=== PATIENT | female | born 1985 ===

== ENCOUNTER 2019-12-13 00:32 | Inpatient (IN) | payer OTHER, SELFPAY ==
[2019-12-13] VITALS (12 sets, daily range): BP systolic 96–137; BP diastolic 53–70; PULSE 79–119; RESP 15–20; TEMP 36.7–39.4; O2SAT 94–99; BMI 22.4
--- NOTE | 2019-12-13 01:31 | ED_ITS ---
HPI - Abdominal Pain General Chief Complaint: Abdominal Pain Stated Complaint: ABD PAIN Time Seen by Provider: 12/13/19 01:31 Source: patient Mode of arrival: ambulatory Limitations: no limitations History of Present Illness HPI narrative: This is a 34-year-old female with onset of abdominal /flank pain on the left since yesterday with associated nausea, vomiting, fever, chills but denies any urinary pain/ burning / frequency. Patient states her LMP was 3 weeks ago and that she has had a tubal ligation. Related Data Home Medications Medication Instructions Recorded Confirmed clonazepam 1 tab PO DAILY PRN 12/13/19 12/13/19 zolpidem 1 tab PO BEDTIME PRN 12/13/19 12/13/19 Allergies Allergy/AdvReac Type Severity Reaction Status Date / Time amitriptyline [AMITRIPTYLINE] Allergy Intermediate NAUSEA, Verified 12/13/19 02:56 DIZZINESS somatropin [SOMATROPIN] Allergy Unknown UNKNOWN Verified 12/13/19 02:56 albuterol [ALBUTEROL] AdvReac Mild TACHYCARDIA Verified 12/13/19 02:56 esomeprazole [From NEXIUM] AdvReac Mild TACHYCARDIA Verified 12/13/19 02:56 magnesium AdvReac Unknown TACHYCARDIA Verified 12/13/19 02:56 (MAGNESIUM SULFATE) Review of Systems Review of Systems Pertinent positives and negatives as stated in HPI 10 point review of systems is otherwise negative. Physical Exam Vital Signs: Vital Signs: Vital Signs Temp Pulse Resp BP Pulse Ox 12/13/19 04:22 98.7 F 101 H 20 103/60 97 12/13/19 02:50 101.4 F H 94 20 103/56 L 99 12/13/19 00:37 100.3 F 108 H 18 137/70 99 Body Mass Index 22.4 VITAL SIGNS: Reviewed. GENERAL: Well developed, well nourished, in no acute distress. HEAD: Normocephalic/atraumatic, EYES: PERRLA, EOMI intact without pain, no nystagmus/pallor/icterus noted EARS: Ext canals without abnormality, TMs non-bulging and non-erythematous NOSE: Nares patent bilateral OROPHARYNX: no oral lesions noted, posterior pharynx clear and non-erythematous without noted tonsillar enlargement/erythema/exudates NECK: Supple, no adenopathy LUNGS: Normal breath sounds. No adventitious sounds or accessory muscle use. SpO2<99> CARDIOVASCULAR: Regular rate and rhythm without noted murmurs, no JVD or lower extremity edema. ABDOMEN: Soft, Tenderness over the left side of the abdomen with localized rebound, non-distended with bowel sounds. No rigidity. No guarding. No palpable masses or hernias noted MUSCULOSKELETAL: No tenderness, deformities, or effusions noted on gross inspection. EXTREMITIES: No cyanosis, clubbing or edema. SKIN: Inspection of the skin reveals no rashes, ulcerations, jaundice, pallor, or petechiae. NEUROLOGIC: Alert and oriented x 4. Strength and sensation to light touch were grossly intact x 4. Course Course Course Narrative: This is a 34-year-old female with history and clinical presentation consistent with possible pyelonephritis, diverticulitis, pancreatitis, but doubt UTI/ectopic . labs, blood cultures, lactic acid, sepsis fluids, CT scan abdomen /pelvis , Zofran, pain medication On review of all investigations there is leukocytosis with left shift with no acute chemistry abnormalities and a lactic acid within normal limits, but urine grossly positive for nitrites and leukocyte esterase. Taken in conjunction with CT scan results which shows evidence of pyelonephritis. On re-evaluation patient remains nauseous and in significant pain. Antibiotics were provided and the case was discussed with the inpatient hospitalist who agrees for admission. Of note, although there is evidence of pyelonephritis there is no clear etiology for the extent of dilation within the left renal system and may consider possible Urology consult. Unable to perform COVID-19 testing due to laboratory department limitations. MDM - Abdominal Pain Lab Data Result diagrams: 12/13/19 01:46 12/13/19 01:46 Labs: Lab Results 12/13/19 12/13/19 12/13/19 Range/Units 01:46 01:46 02:47 WBC 16.0 H (4.8-10.8) X10*3/uL RBC 4.92 (4.20-5.50) X10*6/uL Hgb 14.4 (12.0-16.0) g/dl Hct 43.5 (37-47) % MCV 88.4 (80-98) fL MCH 29.3 (27.0-33.0) pg MCHC 33.1 (31.0-35.0) g/dl RDW 12.7 (11.0-16.0) % Plt Count 308 (160-400) X10*3/uL MPV 10.3 (9.4-12.3) fL Immature Gran % (Auto) 0.3 (0.0-0.4) % Neut % (Auto) 76.3 H (45-73) % Lymph % (Auto) 10.3 L (20-40) % [place] % (Auto) 11.8 H (2-11) % Eos % (Auto) 0.9 (0-4) % Baso % (Auto) 0.4 (0-2) % Lymph # (Auto) 1.6 (1.2-4.9) X10*3/uL [place] # (Auto) 1.9 H (0.1-1.2) X10*3/uL Eos # (Auto) 0.1 (0.0-0.4) X10*3/uL Baso # (Auto) 0.1 (0.0-0.2) X10*3/uL Abs Immat Gran (auto) 0.05 H (0.00-0.03) X10*3/uL Absolute Neuts (auto) 12.2 H (2.0-8.3) X10*3/uL Absolute Nucleated RBC 0.000 (0.0-0.012) X10*3/uL Nucleated RBC % (auto) 0.0 (0.0-0.2) /100WBC Sodium 137 (135-145) mmol/L Potassium 4.0 (3.3-5.1) mmol/l Chloride 99 (96-108) mmol/L Carbon Dioxide 28 (22-29) mmol/L Anion Gap 14 (12-20) BUN 7 L (9-16) mg/dL Creatinine 0.75 (0.5-1.4) mg/dL Estim Creat Clear Calc 77.4 Estimated GFR > 60 Random Glucose 102 (60-115) mg/dL Lactic Acid 0.8 (0.5-2.0) mmol/L Calcium 9.3 (8.4-10.2) mg/dL Total Bilirubin 0.7 (0.0-1.0) mg/dL AST 19 (5-31) U/L ALT 16 (0-31) U/L Alkaline Phosphatase 69 (39-117) U/L Total Protein 7.6 (6.5-8.0) g/dL Albumin 4.5 (3.5-5.0) g/dL Lipase 8 (8-78) U/L Beta HCG, Quant < 2 mIU/mL Urine Color Urine Appearance Urine pH (5.0-8.0) Ur Specific [place] (1.005-1.025) Urine Protein (NEG-TRACE) MG/DL Urine Glucose (UA) (NEG) MG/DL Urine Ketones (NEG) MG/DL Urine Blood (NEG) Urine Nitrite (NEG) Ur Leukocyte Esterase (NEG) Urine RBC (0) /HPF Urine WBC (0-4) /HPF Urine WBC Clumps Ur Squamous Epith Cells /LPF Urine Bacteria /LPF Urine Test (NEGATIVE) 12/13/19 Range/Units 04:26 WBC (4.8-10.8) X10*3/uL RBC (4.20-5.50) X10*6/uL Hgb (12.0-16.0) g/dl Hct (37-47) % MCV (80-98) fL MCH (27.0-33.0) pg MCHC (31.0-35.0) g/dl RDW (11.0-16.0) % Plt Count (160-400) X10*3/uL MPV (9.4-12.3) fL Immature Gran % (Auto) (0.0-0.4) % Neut % (Auto) (45-73) % Lymph % (Auto) (20-40) % [place] % (Auto) (2-11) % Eos % (Auto) (0-4) % Baso % (Auto) (0-2) % Lymph # (Auto) (1.2-4.9) X10*3/uL [place] # (Auto) (0.1-1.2) X10*3/uL Eos # (Auto) (0.0-0.4) X10*3/uL Baso # (Auto) (0.0-0.2) X10*3/uL Abs Immat Gran (auto) (0.00-0.03) X10*3/uL Absolute Neuts (auto) (2.0-8.3) X10*3/uL Absolute Nucleated RBC (0.0-0.012) X10*3/uL Nucleated RBC % (auto) (0.0-0.2) /100WBC Sodium (135-145) mmol/L Potassium (3.3-5.1) mmol/l Chloride (96-108) mmol/L Carbon Dioxide (22-29) mmol/L Anion Gap (12-20) BUN (9-16) mg/dL Creatinine (0.5-1.4) mg/dL Estim Creat Clear Calc Estimated GFR Random Glucose (60-115) mg/dL Lactic Acid (0.5-2.0) mmol/L Calcium (8.4-10.2) mg/dL Total Bilirubin (0.0-1.0) mg/dL AST (5-31) U/L ALT (0-31) U/L Alkaline Phosphatase (39-117) U/L Total Protein (6.5-8.0) g/dL Albumin (3.5-5.0) g/dL Lipase (8-78) U/L Beta HCG, Quant mIU/mL Urine Color STRAW Urine Appearance HAZY Urine pH 7.0 (5.0-8.0) Ur Specific [place] <= 1.005 (1.005-1.025) Urine Protein NEG (NEG-TRACE) MG/DL Urine Glucose (UA) NEG (NEG) MG/DL Urine Ketones 15 (NEG) MG/DL Urine Blood 1+ H (NEG) Urine Nitrite POS H (NEG) Ur Leukocyte Esterase 1+ H (NEG) Urine RBC 1-4 (0) /HPF Urine WBC 30-49 H (0-4) /HPF Urine WBC Clumps NOTED Ur Squamous Epith Cells TRACE /LPF Urine Bacteria 1+ /LPF Urine Test NEGATIVE (NEGATIVE) Discharge Plan Discharge Clinical Impression: Pyelonephritis Sepsis Qualifiers: Sepsis type: sepsis due to unspecified organism Sepsis acute organ dysfunction status: without acute organ dysfunction Qualified Code(s): A41.9 - Sepsis, unspecified organism Patient Disposition: Admitted As Inpatient [facility] Past Medical History Source: nursing notes reviewed Medical History No known health problems Social History Social History Alcohol intake: never Smoking Status: Never smoker Advance Directives: No
--- NOTE | 2019-12-13 01:34 | PC.NURSE ---
PT REPORTS LEFT SIDED ABD PAIN RADIATING INTO BACK BEGINNING TODAY, LOW GRADE TEMP, N/V. DENIES URINARY SYMPTOMS. TESTED NEGATIVE FOR COVID YESTERDAY. IV ACCESS OBTAINED, BLOOD WORK SENT TO LAB. IVF HUNG AND INFUSING WTHOUT DIFFICULTY. AWAITING TESTING.
[2019-12-13] MEDS: 0.9 % Sodium Chloride 1,000 ML 1000 ML IV ×2 (01:45→02:55)
[2019-12-13 01:52] LABS: Basophils Absolute Auto 0.1 X10*3/uL (0.0-0.2); Basophils Percent Auto 0.4 % (0-2); Eosinophils Absolute Auto 0.1 X10*3/uL (0.0-0.4); Eosinophils Percent Auto 0.9 % (0-4); Hematocrit 43.5 % (37-47); Hemoglobin 14.4 g/dl (12.0-16.0); Imm Gran Abs Auto 0.05 X10*3/uL (0.00-0.03); Imm Gran Pct Auto 0.3 % (0.0-0.4); Lymphocytes Absolute Auto 1.6 X10*3/uL (1.2-4.9); Lymphocytes Percent Auto 10.3 % (20-40); Mean Corpuscular HGB Conc 33.1 g/dl (31.0-35.0); Mean Corpuscular Hemoglobin 29.3 pg (27.0-33.0); Mean Corpuscular Volume 88.4 fL (80-98); Mean Platelet Volume 10.3 fL (9.4-12.3); Monocytes Absolute Auto 1.9 X10*3/uL (0.1-1.2); Monocytes Percent Auto 11.8 % (2-11); Neutrophils Absolute Auto 12.2 X10*3/uL (2.0-8.3); Neutrophils Percent Auto 76.3 % (45-73); Platelet Count 308 X10*3/uL (160-400); Red Blood Count 4.92 X10*6/uL (4.20-5.50); Red Cell Distribution Width 12.7 % (11.0-16.0); SCAN SMEAR FLAG 1
[2019-12-13 01:53] LABS: MANUAL DIFF FLAG NO
[2019-12-13 02:18] LABS: Alanine Aminotransferase 16 U/L (0-31); Albumin Level 4.5 g/dL (3.5-5.0); Alkaline Phosphatase 69 U/L (39-117); Anion Gap 14 (12-20); Aspartate Amino Transferase 19 U/L (5-31); Bilirubin Total 0.7 mg/dL (0.0-1.0); Blood Urea Nitrogen 7 mg/dL (9-16); Calcium 9.3 mg/dL (8.4-10.2); Carbon Dioxide 28 mmol/L (22-29); Chloride 99 mmol/L (96-108); Creatinine Clr Calc Pharmacy 77.4; Estimated Glomerular Filt Rate > 60; Glucose Random 102 mg/dL (60-115); Lipase 8 U/L (8-78); Sodium 137 mmol/L (135-145); Total Protein 7.6 g/dL (6.5-8.0)
--- NOTE | 2019-12-13 02:30 | CT_ITS ---
EXAMINATION: CT ABDOMEN AND PELVIS WITH CONTRAST CLINICAL INFORMATION: Abdominal pain COMPARISON: 11/01/2019 TECHNIQUE: Multidetector volumetric images were obtained from the superior aspect of the liver through the pubic symphysis following administration 85 mL of Omnipaque 350 intravenous contrast. Sagittal and coronal reformatted images were obtained on the technologist's workstation. Oral contrast: No This CT examination was performed using dose optimization techniques as appropriate, variously including the following: *Automated exposure control *Adjustment of mA and/or kV according to patient size (this includes techniques or standardized protocols for targeted exams where dose is matched to indication/reason for exam; i.e. extremities or head) *Use of iterative reconstruction technique DLP: 370 mGy-cm FINDINGS: LUNG BASES: The visualized lung bases are unremarkable. LIVER, GALLBLADDER, AND BILIARY TREE: The liver is normal in size, shape, and attenuation. No focal hepatic lesion or biliary ductal dilatation is present. The gallbladder is unremarkable with no evidence of radiopaque gallstones, gallbladder wall thickening, or obvious pericholecystic inflammatory changes. PANCREAS: Unremarkable. SPLEEN: Unremarkable. ADRENAL GLANDS: Unremarkable. KIDNEYS AND URETERS: There are regions of parenchymal hypoattenuation in the mid and lower left kidney with associated mild perinephric stranding. There is also mild dilation of the left renal pelvis and enhancement along the periphery of most of the ureter. No obstructing calculus is seen. Right kidney appears unremarkable. BLADDER: Unremarkable. GASTROINTESTINAL TRACT: The small and large bowel are unremarkable. The appendix is unremarkable. No free air identified. ABDOMINAL WALL: No significant hernia is appreciated. LYMPH NODES: Normal. VASCULAR: Unremarkable. PELVIC VISCERA: Unremarkable. OSSEOUS STRUCTURES: Unremarkable. CT/CT abdomen pelvis w con IMPRESSION: Regions of abnormal left renal parenchymal enhancement as described above, most suspicious for pyelonephritis. There is also mural enhancement of the left ureter and mild dilation of the renal pelvis, without appreciable obstructing calculus.
[2019-12-13 02:54] LABS: HCG Quantitative < 2 mIU/mL
[2019-12-13] MEDS: Ketorolac Tromethamine 15 MG/ML VIAL IVPUSH (02:54)
[2019-12-13] MEDS: ondansetron HCL 4 MG/2 ML VIAL IVPUSH ×2 (02:54→15:26)
[2019-12-13 03:18] LABS: Lactic Acid 0.8 mmol/L (0.5-2.0)
[2019-12-13] MEDS: iohexoL 350 MG/ML 100 ML INFUS..BTL 85 ML IV (03:20)
[2019-12-13] MEDS: cefTRIAXone sodium 2 GM in 0.9 % Sodium Chloride 50 ML IV (04:15)
[2019-12-13] MEDS: Acetaminophen 325 MG TABLET 975 MG PO (04:18)
[2019-12-13 04:32] LABS: Glucose Urine UA NEG (NEG); Leukocyte Esterase Urine 1+ (NEG); Nitrite Urine POS (NEG); Specific Gravity - Urine <= 1.005 (1.005-1.025); Urine Blood 1+ (NEG); Urine Ketones 15 MG/DL (NEG); Urine Protein NEG (NEG-TRACE)
[2019-12-13 04:37] LABS: Appearance Urine HAZY; Color Urine STRAW
[2019-12-13 04:48] LABS: Bacteria Urine 1+ /LPF; Squamous Epithelial Cell Urine TRACE /LPF; WBC Clumps Urine NOTED; WBC Urine 30-49 /HPF (0-4)
--- NOTE | 2019-12-13 04:56 | PC.NURSE ---
PT RESTING IN BED SKIN PWD RESPIRATIONS EVEN UNLABORED, REPORTS CONTINUED PAIN. TO BE ADMITTED. AWARE OF PLAN OF CARE, AWAITING HOSPITALIST CONSULT.
[2019-12-13] MEDS: HYDROmorphone HCl 0.5 MG/0.5 ML SYRINGE IVPUSH (05:03)
[2019-12-13 05:13] LABS: UPreg QC Valid YES; Urine Pregnancy NEGATIVE (NEGATIVE)
--- NOTE | 2019-12-13 10:04 | P.HPIM_ITS ---
History of Present Illness Date of Service: 12/13/19 Chief Complaint: Abdominal pain and Left flank pain 34 year old female with history of unspecified history of kidney stone, diabetes, and other medical problems as listed below presents to ED with abdominal, nausea vomting and fever since the day prior to admission. She describes mostly severe, left flank pain and has no associated dysuia. Work up is noted for elevated WBC of 16, positive UA, normal lactic acid.and blood pressure has been marginally low. A CT if the abdomen shows finding consistent with left sided pyelonephritis. She meets sepsis criteria with elevated WBC and fever. She is initiated on Ceftriaxone given IV fluid and blood cultures sent. Review of Systems Review of Systems: Gen: Fever and chills GI: Nausea, vomiting no diarrhea. Yes all other systems are reviewed and are negative [facility] Medical History (Updated 12/13/19 @ 10:23 by Edwin Avelar MD) Bipolar 1 disorder Carpal tunnel syndrome COPD (chronic obstructive pulmonary disease) Diabetes mellitus Fibromyalgia History of MRSA infection No known health problems Polycystic ovarian disease Postural orthostatic tachycardia syndrome Functional capacity: independent ambulation Pertinent family history: Family history of type 2 diabetes and HTN Surgical History (Updated 12/13/19 @ 10:10 by Edwin Avelar MD) History of tubal ligation Hx of abdominoplasty Social History Alcohol intake: never Smoking Status: Never smoker Advance Directives: No Meds Allergies Allergy/AdvReac Type Severity Reaction Status Date / Time somatropin [SOMATROPIN] Allergy Unknown UNKNOWN Verified 12/13/19 02:56 amitriptyline [AMITRIPTYLINE] AdvReac Intermediate NAUSEA, Verified 12/13/19 08:37 DIZZINESS albuterol [ALBUTEROL] AdvReac Mild TACHYCARDIA Verified 12/13/19 02:56 esomeprazole [From NEXIUM] AdvReac Mild TACHYCARDIA Verified 12/13/19 02:56 magnesium AdvReac Unknown TACHYCARDIA Verified 12/13/19 02:56 (MAGNESIUM SULFATE) Home Medications Medication Instructions Recorded Confirmed Type clonazepam 1 mg PO DAILY PRN 12/13/19 12/13/19 History divalproex 250 mg PO BID 12/13/19 12/13/19 History fluticasone propionate [Flovent 1 puff INHALATION BID 12/13/19 12/13/19 History HFA] valacyclovir 1,000 mg PO DAILY 12/13/19 12/13/19 History zolpidem 10 mg PO BEDTIME PRN 12/13/19 12/13/19 History Physical Exam Vital Signs and Narrative: Vital Signs: Last Vital Signs Temp 98.1 F 12/13/19 07:52 Pulse 79 12/13/19 07:52 Resp 16 12/13/19 07:52 BP 96/53 L 12/13/19 07:52 Pulse Ox 97 12/13/19 04:22 Body Mass Index 22.4 Results Labs Labs: Laboratory Tests 12/13/19 12/13/19 12/13/19 01:46 01:46 02:47 WBC 16.0 H RBC 4.92 Hgb 14.4 Hct 43.5 MCV 88.4 MCH 29.3 MCHC 33.1 RDW 12.7 Plt Count 308 MPV 10.3 Immature Gran % (Auto) 0.3 Neut % (Auto) 76.3 H Lymph % (Auto) 10.3 L [place] % (Auto) 11.8 H Eos % (Auto) 0.9 Baso % (Auto) 0.4 Lymph # (Auto) 1.6 [place] # (Auto) 1.9 H Eos # (Auto) 0.1 Baso # (Auto) 0.1 Abs Immat Gran (auto) 0.05 H Absolute Neuts (auto) 12.2 H Absolute Nucleated RBC 0.000 Nucleated RBC % (auto) 0.0 Sodium 137 Potassium 4.0 Chloride 99 Carbon Dioxide 28 Anion Gap 14 BUN 7 L Creatinine 0.75 Estim Creat Clear Calc 77.4 Estimated GFR > 60 Random Glucose 102 Lactic Acid 0.8 Calcium 9.3 Total Bilirubin 0.7 AST 19 ALT 16 Alkaline Phosphatase 69 Total Protein 7.6 Albumin 4.5 Lipase 8 Beta HCG, Quant < 2 Urine Color Urine Appearance Urine pH Ur Specific [place] Urine Protein Urine Glucose (UA) Urine Ketones Urine Blood Urine Nitrite Ur Leukocyte Esterase Urine RBC Urine WBC Urine WBC Clumps Ur Squamous Epith Cells Urine Bacteria Urine Test 12/13/19 04:26 WBC RBC Hgb Hct MCV MCH MCHC RDW Plt Count MPV Immature Gran % (Auto) Neut % (Auto) Lymph % (Auto) [place] % (Auto) Eos % (Auto) Baso % (Auto) Lymph # (Auto) [place] # (Auto) Eos # (Auto) Baso # (Auto) Abs Immat Gran (auto) Absolute Neuts (auto) Absolute Nucleated RBC Nucleated RBC % (auto) Sodium Potassium Chloride Carbon Dioxide Anion Gap BUN Creatinine Estim Creat Clear Calc Estimated GFR Random Glucose Lactic Acid Calcium Total Bilirubin AST ALT Alkaline Phosphatase Total Protein Albumin Lipase Beta HCG, Quant Urine Color STRAW Urine Appearance HAZY Urine pH 7.0 Ur Specific [place] <= 1.005 Urine Protein NEG Urine Glucose (UA) NEG Urine Ketones 15 Urine Blood 1+ H Urine Nitrite POS H Ur Leukocyte Esterase 1+ H Urine RBC 1-4 Urine WBC 30-49 H Urine WBC Clumps NOTED Ur Squamous Epith Cells TRACE Urine Bacteria 1+ Urine Test NEGATIVE Assessment and Plan (1) Sepsis: Qualifiers: Sepsis acute organ dysfunction status: without acute organ dysfunction Sepsis type: sepsis due to unspecified organism Qualified Code(s): A41.9 - Sepsis, unspecified organism Status: Acute (2) Pyelonephritis: Status: Acute (3) Diabetes mellitus: Status: Acute 34/F with sepsis due to acute left sided pyelonephritis -Continue Ceftiaxone D1 -IVF and monitor for hypoten -Follow cultures 2. Diabetes--she used to take Metformin but says she doesn't have PCP and hasn't been taken meds. -check Hgb A1C, sugars are pretty much normal 3. COPD --stable, no exacerbation, inhalers PRN 4. Anxiety/Depression --ativan PRN Low risk for DVT, advise early ambulation
--- NOTE | 2019-12-13 10:13 | PC.NURSE ---
[facility] called for report x 1. phone rang no answer when sent to the pod.
--- NOTE | 2019-12-13 10:53 | PC.NURSE ---
nurse to nurse given to beny (rn) on imc, pt aware of plan of care for admission to hosp.
[2019-12-13] MEDS: Morphine Sulfate 2 MG/ML CARTRIDGE IVPUSH ×3 (11:33→23:43)
[2019-12-13] MEDS: 0.9 % Sodium Chloride 1,000 ML 200 ML IVCONT ×2 (11:51→18:24)
[2019-12-13] MEDS: Acetaminophen 325 MG TABLET 650 MG PO ×2 (15:26→23:43)
[2019-12-13 16:37] LABS: SARS COV2 PCR INHOUSE NEGATIVE (Negative)
--- NOTE | 2019-12-13 17:13 | MHC.PIE ---
P- Pt temp 103.0 orally, HR 119 at 1600 vitals I- jesus FREY, gave PRN tylenol per emar E- will continue to monitor
[2019-12-13] MEDS: Zolpidem Tartrate 5 MG TABLET PO (23:44)
[2019-12-14 03:31] VITALS: BP 108/60; PULSE 84; RESP 18; TEMP 37; O2SAT 96
[2019-12-14 08:00] VITALS: BP 100/35; PULSE 93; RESP 18; TEMP 36.7; O2SAT 96
[2019-12-14] MEDS: 0.9 % Sodium Chloride Flush 3 ML SYRINGE IVFLUSH ×3 (09:06→22:43)
[2019-12-14 12:00] VITALS: BP 120/48; PULSE 88; RESP 18; TEMP 36.7; O2SAT 96
[2019-12-14] MEDS: Morphine Sulfate 2 MG/ML CARTRIDGE IVPUSH ×2 (13:01→17:20)
[2019-12-14] MEDS: ondansetron HCL 4 MG/2 ML VIAL IVPUSH ×2 (13:01→22:48)
--- NOTE | 2019-12-14 13:43 | MHC.CM.PN ---
Pt reports she lives at home with her children and she is independent with care and mobility. Pt has no in home services and no DME. Pt does not know the name of her current PCP as it recently changed but reports she goes to the [facility]. Pt reports she has a HCP completed and on file. IMM delivered and current DC plan is home with no services pt will self arrange transport
[2019-12-14 14:05] LABS: Glucose, Whole Blood 104 mg/dL (60-115)
--- NOTE | 2019-12-14 14:23 | P.PNIM_ITS ---
Subjective Subjective Date of Service: 12/14/19 Interval History: seen and examined this afternoon reports fevers improved since early this AM but reports L flank pain still significant reports previously on metformin for DM, but not for > 1.5years Review of Systems General - fevers better Cardiovascular - no chest pain Respiratory - no shortness of breath or cough Abdominal- flank pain Physical Exam Vital Signs: Vital Signs: Vital Signs Temp Pulse Resp BP Pulse Ox 12/14/19 12:00 98.0 F 88 18 120/48 L 96 12/14/19 08:00 98.0 F 93 18 100/35 L 96 12/14/19 03:31 98.6 F 84 18 108/60 96 12/13/19 23:43 18 12/13/19 23:35 100.1 F 110 H 19 121/65 94 12/13/19 19:08 99.3 F 97 18 107/57 L 95 12/13/19 17:37 99.5 F 12/13/19 15:22 103.0 F H 119 H 20 108/63 97 Body Mass Index 22.4 General - no acute distress, appears comfortable Cardiovascular - regular rate and rhythm, S1-S2 Lungs - normal respiratory effort, clear to auscultation bilaterally, no wheezing Abdomen - soft, nt - L flank tenderness Extremities - no edema bilaterally Neuro - awake and alert, no focal deficits Objective Data Current Medications Generic Name Dose Route Start Last Admin Trade Name Freq PRN Reason Stop Dose Admin Acetaminophen 650 mg 12/13/19 15:07 12/13/19 23:43 Acetaminophen 325 Mg Tablet PO 650 mg Q6H PRN Administration Pain, Mild (Pain Scale 1-3) Clonazepam 1 mg 12/13/19 10:58 Clonazepam 1 Mg Tablet PO DAILY PRN Anxiety Divalproex Sodium 250 mg 12/14/19 21:00 Divalproex Sodium Er 250 Mg Tab.Er.24h PO BID MAEVE Fluticasone Propionate 1 puff 12/14/19 20:00 Fluticasone Propionate 250 Mcg Blst.W.Dev INHALE RBID MAEVE Ceftriaxone Sodium 1 gm/ 50 mls @ 100 mls/hr 12/14/19 14:00 Sodium Chloride IV Q24H MAEVE Lactated Ringer's 1,000 mls @ 100 mls/hr 12/14/19 14:30 Lr IVCONT .Q10H MAEVE Morphine Sulfate 2 mg 12/13/19 08:23 12/14/19 13:01 Morphine Sulfate 2 Mg/Ml Cartridge IVPUSH 2 mg Q4H PRN Administration Pain, Severe (Pain Scale 7-10) Ondansetron HCl 4 mg 12/13/19 15:07 12/14/19 13:01 Ondansetron Hcl 4 Mg/2 Ml Vial IVPUSH 4 mg Q8H PRN Administration Nausea and Vomiting Oxycodone HCl 5 mg 12/14/19 14:23 Oxycodone Hcl Immed Release 5 Mg Tablet PO Q6H PRN Pain, Moderate (Pain Scale 4-6 Sodium Chloride 3 ml 12/13/19 16:00 12/14/19 09:06 0.9 % Sodium Chloride Flush 3 Ml Syringe IVFLUSH 3 ml QSHIFT [facility] Administration Valacyclovir HCl 1,000 mg 12/14/19 13:30 Valacycyclovir Hcl 1,000 Mg Tablet PO DAILY [facility] Zolpidem Tartrate 5 mg 12/13/19 11:01 12/13/19 23:44 Zolpidem Tartrate 5 Mg Tablet PO 5 mg BEDTIME PRN Administration Insomnia Labs CBC & Chem 7: 12/13/19 01:46 12/13/19 01:46 Microbiology Microbiology Results: Microbiology 12/13/19 Unknown Urine clean catch - Clean Catch Midstream Urine Culture - Preliminary Gram negative murphy 12/13/19 02:47 Blood - Venous Blood Culture - Preliminary No growth after 24 hours. 12/13/19 02:47 Blood - Venous Blood Culture - Preliminary No growth after 24 hours. Assessment and Plan (1) Sepsis: Status: Acute (2) Pyelonephritis: Status: Acute Assessment and Plan: This is a 34 yo F with PMH of DM, COPD, Depression/Anxiety who is admitted for sepsis secondary to pyelonephritis. 1. Sepsis due to pyelonephritis blood cx negative @ 24 hours, urine growing GNB continue rocephin check cbc, change to zosyn if white count continues to climb LR @ 100 cc/hr 2. DM reports previously on metformin POC QIDAC, will add sliding scale if sugars high check a1c with tomorrow AM labs 3. COPD/Asthma nebs / inhalers as needed 4. Anxiety / Depression continue home meds Full Code DVT pptx, moderate risk -- not ambulating; start lovenox
[2019-12-14] MEDS: cefTRIAXone sodium 1 GM in 0.9 % Sodium Chloride 50 ML IV (14:35)
[2019-12-14 14:51] LABS: Basophils Absolute Auto 0.1 X10*3/uL (0.0-0.2); Basophils Percent Auto 0.4 % (0-2); Eosinophils Absolute Auto 0.1 X10*3/uL (0.0-0.4); Eosinophils Percent Auto 0.4 % (0-4); Hematocrit 38.2 % (37-47); Hemoglobin 12.8 g/dl (12.0-16.0); Imm Gran Abs Auto 0.05 X10*3/uL (0.00-0.03); Imm Gran Pct Auto 0.4 % (0.0-0.4); Lymphocytes Absolute Auto 1.3 X10*3/uL (1.2-4.9); Lymphocytes Percent Auto 9.1 % (20-40); MANUAL DIFF FLAG SCAN; Mean Corpuscular HGB Conc 33.5 g/dl (31.0-35.0); Mean Corpuscular Hemoglobin 29.9 pg (27.0-33.0); Mean Corpuscular Volume 89.3 fL (80-98); Mean Platelet Volume 10.5 fL (9.4-12.3); Monocytes Absolute Auto 1.6 X10*3/uL (0.1-1.2); Monocytes Percent Auto 11.4 % (2-11); Neutrophils Absolute Auto 10.8 X10*3/uL (2.0-8.3); Neutrophils Percent Auto 78.3 % (45-73); Platelet Count 271 X10*3/uL (160-400); Red Blood Count 4.28 X10*6/uL (4.20-5.50); Red Cell Distribution Width 12.7 % (11.0-16.0); SCAN SMEAR FLAG 1; White Blood Count 13.8 X10*3/uL (4.8-10.8)
[2019-12-14 15:14] LABS: SLIDE REVIEW VERIFIED
[2019-12-14 15:40] VITALS: BP 106/64; PULSE 97; RESP 20; TEMP 37.2; O2SAT 97
[2019-12-14] MEDS: oxyCODONE HCl Immed Release 5 MG TABLET PO (15:44)
[2019-12-14] MEDS: Lactated Ringers 1,000 ML 100 ML IVCONT (15:51)
[2019-12-14 17:11] LABS: Glucose, Whole Blood 122 mg/dL (60-115)
[2019-12-14] MEDS: Enoxaparin Sodium 40 MG/0.4 ML SYRINGE SUBCUT (17:22)
[2019-12-14 19:37] VITALS: BP 115/71; PULSE 88; RESP 16; TEMP 36.8; O2SAT 98
[2019-12-14] MEDS: Fluticasone Propionate 250 MCG BLST.W.DEV 1 PUFF INHALE (20:09)
[2019-12-14] MEDS: Albuterol Sulfate (0.042%) 1.25 MG/3 ML VIAL.NEB INHALE (20:20)
[2019-12-14 20:52] LABS: Glucose, Whole Blood 97 mg/dL (60-115)
[2019-12-14] MEDS: Zolpidem Tartrate 5 MG TABLET PO (22:41)
[2019-12-14] MEDS: Divalproex Sodium ER 250 MG TAB.ER.24H PO (22:41)
[2019-12-14 23:19] VITALS: BP 102/64; PULSE 91; RESP 18; TEMP 36.6; O2SAT 99
[2019-12-15] VITALS (7 sets, daily range): BP systolic 101–127; BP diastolic 50–78; PULSE 74–82; RESP 18–19; TEMP 35.9–36.7; O2SAT 97–98
[2019-12-15] MEDS: Lactated Ringers 1,000 ML 100 ML IVCONT ×3 (00:58→23:44)
[2019-12-15] MEDS: Morphine Sulfate 2 MG/ML CARTRIDGE IVPUSH (01:10)
[2019-12-15 06:50] LABS: MANUAL DIFF FLAG NO
[2019-12-15 07:13] LABS: Basophils Percent Auto 0.4 % (0-2); Eosinophils Absolute Auto 0.1 X10*3/uL (0.0-0.4); Eosinophils Percent Auto 1.4 % (0-4); Hematocrit 34.2 % (37-47); Hemoglobin 11.3 g/dl (12.0-16.0); Imm Gran Abs Auto 0.03 X10*3/uL (0.00-0.03); Imm Gran Pct Auto 0.3 % (0.0-0.4); Lymphocytes Percent Auto 20.8 % (20-40); Mean Corpuscular Hemoglobin 29.4 pg (27.0-33.0); Mean Corpuscular Volume 88.8 fL (80-98); Mean Platelet Volume 10.5 fL (9.4-12.3); Monocytes Absolute Auto 1.2 X10*3/uL (0.1-1.2); Monocytes Percent Auto 11.9 % (2-11); Neutrophils Absolute Auto 6.3 X10*3/uL (2.0-8.3); Neutrophils Percent Auto 65.2 % (45-73); Platelet Count 259 X10*3/uL (160-400); Red Blood Count 3.85 X10*6/uL (4.20-5.50); Red Cell Distribution Width 12.5 % (11.0-16.0); White Blood Count 9.7 X10*3/uL (4.8-10.8)
[2019-12-15] MEDS: Fluticasone Propionate 250 MCG BLST.W.DEV 1 PUFF INHALE ×2 (07:42→19:23)
[2019-12-15 08:22] LABS: Glucose, Whole Blood 88 mg/dL (60-115)
[2019-12-15 08:26] LABS: Estimated Average Glucose 97 mg/dL
[2019-12-15] MEDS: Divalproex Sodium ER 250 MG TAB.ER.24H PO ×2 (08:43→20:36)
[2019-12-15] MEDS: 0.9 % Sodium Chloride Flush 3 ML SYRINGE IVFLUSH ×2 (08:44→17:47)
[2019-12-15] MEDS: ondansetron HCL 4 MG/2 ML VIAL IVPUSH ×2 (09:00→17:37)
[2019-12-15] MEDS: oxyCODONE HCl Immed Release 5 MG TABLET PO ×2 (09:00→22:05)
[2019-12-15 11:45] LABS: Glucose, Whole Blood 98 mg/dL (60-115)
[2019-12-15] MEDS: cefTRIAXone sodium 1 GM in 0.9 % Sodium Chloride 50 ML IV (13:37)
--- NOTE | 2019-12-15 13:42 | P.PNIM_ITS ---
Subjective Subjective Date of Service: 12/15/19 Interval History: seen and examined this afternoon pain improving tolerated diet this AM, hoping she is well enough to go home tomorrow Review of Systems General - no fevers or chills Cardiovascular - no chest pain Respiratory - no shortness of breath or cough Abdominal- no abdominal pain, nausea, vomiting, diarrhea - flank pain, improved Physical Exam Vital Signs: Vital Signs: Vital Signs Temp Pulse Resp BP Pulse Ox 12/15/19 11:20 97.6 F 81 19 111/64 97 12/15/19 08:07 96.6 F L 74 18 101/50 L 98 12/15/19 04:00 96.8 F 74 18 108/57 L 98 12/15/19 01:10 18 12/14/19 23:19 97.8 F 91 18 102/64 99 12/14/19 19:37 98.3 F 88 16 115/71 98 12/14/19 15:40 99 F 97 20 106/64 97 Body Mass Index 22.4 General - no acute distress, appears comfortable Cardiovascular - regular rate and rhythm, S1-S2 Lungs - normal respiratory effort, clear to auscultation bilaterally, no wheezing Abdomen - soft, nt - L flank tenderness, improved Extremities - no edema bilaterally Neuro - awake and alert, no focal deficits Objective Data Current Medications Generic Name Dose Route Start Last Admin Trade Name Juan Manuelq PRN Reason Stop Dose Admin Acetaminophen 650 mg 12/13/19 15:07 12/13/19 23:43 Acetaminophen 325 Mg Tablet PO 650 mg Q6H PRN Administration Pain, Mild (Pain Scale 1-3) Albuterol Sulfate 1.25 mg 12/14/19 14:30 12/14/19 20:20 Albuterol Sulfate (0.042%) 1.25 Mg/3 Ml Vial.Neb INHALE 1.25 mg RQ4H PRN Administration Wheezing Clonazepam 1 mg 12/13/19 10:58 Clonazepam 1 Mg Tablet PO DAILY PRN Anxiety Divalproex Sodium 250 mg 12/14/19 21:00 12/15/19 08:43 Divalproex Sodium Er 250 Mg Tab.Er.24h PO 250 mg BID MAEVE Administration Enoxaparin Sodium 40 mg 12/14/19 18:00 12/14/19 17:22 Enoxaparin Sodium 40 Mg/0.4 Ml Syringe SUBCUT 40 mg Q24H MAEVE Administration Fluticasone Propionate 1 puff 12/14/19 20:00 12/15/19 07:42 Fluticasone Propionate 250 Mcg Blst.W.Dev INHALE 1 puff RBID MAEVE Administration Ceftriaxone Sodium 1 gm/ 50 mls @ 100 mls/hr 12/14/19 14:00 12/14/19 16:05 Sodium Chloride IV Infused Q24H MAEVE Infusion Lactated Ringer's 1,000 mls @ 100 mls/hr 12/14/19 14:30 12/15/19 10:54 Lr IVCONT 100 mls/hr .Q10H MAEVE Administration Morphine Sulfate 2 mg 12/13/19 08:23 12/15/19 01:10 Morphine Sulfate 2 Mg/Ml Cartridge IVPUSH 2 mg Q4H PRN Administration Pain, Severe (Pain Scale 7-10) Ondansetron HCl 4 mg 12/13/19 15:07 12/15/19 09:00 Ondansetron Hcl 4 Mg/2 Ml Vial IVPUSH 4 mg Q8H PRN Administration Nausea and Vomiting Oxycodone HCl 5 mg 12/14/19 14:23 12/15/19 09:00 Oxycodone Hcl Immed Release 5 Mg Tablet PO 5 mg Q6H PRN Administration Pain, Moderate (Pain Scale 4-6 Sodium Chloride 3 ml 12/13/19 16:00 12/15/19 08:44 0.9 % Sodium Chloride Flush 3 Ml Syringe IVFLUSH 3 ml QSHIFT MAEVE Administration Valacyclovir HCl 1,000 mg 12/14/19 13:30 12/15/19 08:44 Valacycyclovir Hcl 1,000 Mg Tablet PO 1,000 mg DAILY [facility] Administration Zolpidem Tartrate 5 mg 12/13/19 11:01 12/14/19 22:41 Zolpidem Tartrate 5 Mg Tablet PO 5 mg BEDTIME PRN Administration Insomnia Labs CBC & Chem 7: 12/15/19 06:42 12/13/19 01:46 Microbiology Microbiology Results: Microbiology 12/13/19 Unknown Urine clean catch - Clean Catch Midstream Urine Culture - Final Escherichia coli 12/13/19 02:47 Blood - Venous Blood Culture - Preliminary No growth after 48 hours. 12/13/19 02:47 Blood - Venous Blood Culture - Preliminary No growth after 48 hours. Assessment and Plan (1) Sepsis: Status: Acute (2) Pyelonephritis: Status: Acute Assessment and Plan: This is a 34 yo F with PMH of DM, COPD, Depression/Anxiety who is admitted for sepsis secondary to pyelonephritis. 1. Sepsis due to E. Coli pyelonephritis sepsis resolved rocephin, day #3; ceftin upon d/c -- total 14 days 2. DM a1c -- 5.0 poc have been acceptable, no need to check -- will d/c previously on metformin -- does not need it at this time 3. COPD/Asthma nebs / inhalers as needed 4. Anxiety / Depression continue home meds Full Code DVT pptx, moderate risk -- not ambulating; start lovenox dispo: home tomorrow with po antibiotics
[2019-12-15] MEDS: Enoxaparin Sodium 40 MG/0.4 ML SYRINGE SUBCUT (17:35)
[2019-12-15] MEDS: Zolpidem Tartrate 5 MG TABLET PO (22:05)
[2019-12-16 03:56] VITALS: BP 115/69; PULSE 72; RESP 18; TEMP 36.8; O2SAT 97
[2019-12-16 07:28] VITALS: BP 105/55; PULSE 73; RESP 18; TEMP 36.6; O2SAT 98
[2019-12-16] MEDS: Fluticasone Propionate 250 MCG BLST.W.DEV 1 PUFF INHALE (07:41)
[2019-12-16] MEDS: Divalproex Sodium ER 250 MG TAB.ER.24H PO (10:07)
[2019-12-16 11:10] VITALS: BP 108/63; PULSE 77; RESP 18; TEMP 36.7; O2SAT 99
--- NOTE | 2019-12-16 11:24 | P.DS_ITS ---
DS: Providers Provider Date of admission: 12/13/19 08:20 Primary care physician: [facility] DS: Diagnosis Discharge Diagnosis (1) Sepsis: Status: Acute (2) Pyelonephritis: Status: Acute DS: Summary Hospital Course Hospital Course: From the admission H&P: 34 year old female with history of unspecified history of kidney stone, diabetes, and other medical problems as listed below presents to ED with abdominal, nausea vomting and fever since the day prior to admission. She describes mostly severe, left flank pain and has no associated dysuia. Work up is noted for elevated WBC of 16, positive UA, normal lactic acid.and blood pressure has been marginally low. A CT if the abdomen shows finding consistent with left sided pyelonephritis. She meets sepsis criteria with elevated WBC and fever. She is initiated on Ceftriaxone given IV fluid and blood cultures sent. Hospital Course: patient had cultures drawn in the emergency room and was started on IV ceftriaxone. Over the course of 4 days in the hospital, patient had signifi cant improvement in her symptoms. Her blood cultures were negative and her urine cultures returned positive for E coli which was sensitive to ceftriaxone. She will be discharged home on 11 more days of oral cefuroxime 500 mg twice daily. she is to obtain and follow up with a primary care doctor. Additionally, the patient reported that she was diabetic But had been off of medications for more than a year. Hemoglobin A1c was checked which resulted with a value of 5. her point of cares in the hospital were in the normal range. She will not be discharged with any oral medications, again she needs to obtain follow up with the primary care doctor. Time Spent with Patient Time attestation: Total time spent providing and/or coordinating discharge services: Physical Exam Vital Signs: Vital Signs: Vital Signs Temp Pulse Resp BP Pulse Ox 12/16/19 11:10 98.0 F 77 18 108/63 99 12/16/19 07:28 97.8 F 73 18 105/55 L 98 12/16/19 03:56 98.2 F 72 18 115/69 97 12/15/19 23:50 98.0 F 82 18 127/74 98 12/15/19 19:02 97.9 F 76 18 113/78 98 12/15/19 15:43 98.1 F 77 18 109/69 98 Body Mass Index 22.4 DS: Data Data Completed and Pending Labs on day of discharge: Labs from last 24 hours 12/15/19 11:22 POC Glucose 98 Preliminary micro results at discharge 12/13/19 02:47 Blood Culture - Preliminary Blood - Venous No growth after 48 hours. 12/13/19 02:47 Blood Culture - Preliminary Blood - Venous No growth after 48 hours. Discharge Plan Discharge Patient Disposition: Home, Self-Care Referrals: [facility] [Primary Care Provider] - Discharge Medications: New cefuroxime axetil 500 mg tablet 500 mg PO Q12H Qty: 20 RF: 0 Continued clonazepam 1 mg tablet 1 mg PO DAILY PRN (Reason: Anxiety) RF: 0 zolpidem 10 mg tablet 10 mg PO BEDTIME PRN (Reason: insomnia) RF: 0 valacyclovir 1 gram tablet 1,000 mg PO DAILY RF: 0 Flovent HFA 220 mcg/actuation HFA aerosol inhaler 1 puff inhalation BID RF: 0 divalproex 250 mg tablet extended release 24 hr 250 mg PO BID RF: 0 Discharge Orders: Discharge Order (Routine); Ordered 12/16/19 Ordered By: Farooq Wilkins Diet: advance to your usual diet Activity on Discharge: As tolerated Visit Report Forms: Patient Portal Discharge page Care Plan Goals: To feel better Health Concerns: UTI / Pyelonephritis Plan of Treatment: Complete your antibiotics as prescribed. Obtain a primary care doctor -- you may be able to follow up [facility] as you have done previ ously. Your HbA1C (Diabetes testing) is 5.0. You need to follow up with a primary care doctor and have this checked a few times a year. Eat a low carb diet. You do not need any medication at this time.
--- NOTE | 2019-12-16 11:27 | MHC.CM.PN ---
PT DCD HOME NO SERVICES
[2019-12-16 12:02] VITALS: RESP 14
[2019-12-16] MEDS: cefTRIAXone sodium 1 GM in 0.9 % Sodium Chloride 50 ML IV (12:02)
[2019-12-16] MEDS: Morphine Sulfate 2 MG/ML CARTRIDGE IVPUSH (12:02)
== END 2019-12-16 13:45 | disposition home or self-care (01) | DRG 872 ==
LOC: HO.ED 05:10 → HO.IMC 08:28
PROVIDERS: Admitting Provider Internal Medicine; Emergency Provider Student in an Organized Health Care Education/Training Program; Visit Provider Family Medicine
DX: A41.9 Sepsis, unspecified organism (principal); N12 Tubulo-interstitial nephritis, not specified as acute or chronic; E11.9 Type 2 diabetes mellitus without complications; E28.2 Polycystic ovarian syndrome; B96.20 Unspecified Escherichia coli [E. coli] as the cause of diseases classified elsewhere; M79.7 Fibromyalgia; F31.9 Bipolar disorder, unspecified; F41.9 Anxiety disorder, unspecified; J44.9 Chronic obstructive pulmonary disease, unspecified; Z87.442 Personal history of urinary calculi; Z79.51 Long term (current) use of inhaled steroids; Z79.899 Other long term (current) drug therapy
CPT/HCPCS: 36415; 74177; 80053; 81001; 81025; 82947; 83036; 83605; 83690; 84702; 85025; 87040; 87086; 87088; 87186; 87635; 94640; 96361; 96365; 96375; 99285; J1170; J1650; J1885; J2270; J2405

== ENCOUNTER 2019-12-25 16:23 | Outpatient (REF) | payer OTHER, SELFPAY ==
[2019-12-25 17:02] LABS: MANUAL DIFF FLAG NO
[2019-12-25 17:17] LABS: Glucose Urine UA NEG (NEG); Leukocyte Esterase Urine NEG (NEG); Nitrite Urine NEG (NEG); Specific Gravity - Urine 1.015 (1.005-1.025); Urine Blood NEG (NEG); Urine Ketones NEG (NEG); Urine Protein NEG (NEG-TRACE)
[2019-12-25 17:22] LABS: Basophils Absolute Auto 0.1 X10*3/uL (0.0-0.2); Basophils Percent Auto 0.9 % (0-2); Eosinophils Absolute Auto 0.1 X10*3/uL (0.0-0.4); Eosinophils Percent Auto 1.6 % (0-4); Hematocrit 42.7 % (37-47); Hemoglobin 13.9 g/dl (12.0-16.0); Imm Gran Abs Auto 0.03 X10*3/uL (0.00-0.03); Imm Gran Pct Auto 0.5 % (0.0-0.4); Lymphocytes Absolute Auto 1.9 X10*3/uL (1.2-4.9); Lymphocytes Percent Auto 33.2 % (20-40); Mean Corpuscular HGB Conc 32.6 g/dl (31.0-35.0); Mean Corpuscular Hemoglobin 29.2 pg (27.0-33.0); Mean Corpuscular Volume 89.7 fL (80-98); Mean Platelet Volume 10.5 fL (9.4-12.3); Monocytes Absolute Auto 0.8 X10*3/uL (0.1-1.2); Monocytes Percent Auto 13.5 % (2-11); Neutrophils Absolute Auto 2.9 X10*3/uL (2.0-8.3); Neutrophils Percent Auto 50.3 % (45-73); Platelet Count 410 X10*3/uL (160-400); Red Blood Count 4.76 X10*6/uL (4.20-5.50); Red Cell Distribution Width 13.1 % (11.0-16.0); White Blood Count 5.8 X10*3/uL (4.8-10.8)
[2019-12-25 17:23] LABS: Alanine Aminotransferase 19 U/L (0-31); Anion Gap 10 (12-20); Aspartate Amino Transferase 20 U/L (5-31); Carbon Dioxide 28 mmol/L (22-29); Chloride 102 mmol/L (96-108); Estimated Glomerular Filt Rate > 60; Potassium 4.1 mmol/l (3.3-5.1); Sodium 136 mmol/L (135-145)
[2019-12-25 17:24] LABS: Appearance Urine CLEAR; Color Urine YELLOW
== END 2019-12-25 16:24 | disposition home or self-care (01) ==
LOC: HO.LAB 16:23
PROVIDERS: Visit Provider Internal Medicine Infectious Disease
DX: N39.0 Urinary tract infection, site not specified (principal)
CPT/HCPCS: 36415; 80051; 81003; 82565; 84450; 84460; 85025; 87040; 87086

== ENCOUNTER → 2020-01-01 14:15 | Outpatient (BNVA) | payer OTHER, SELFPAY | PROVIDERS: Visit Provider Urology | DX: N12 Tubulo-interstitial nephritis, not specified as acute or chronic (principal) | CPT/HCPCS: 99212 ==

== ENCOUNTER 2020-01-25 21:10 | Emergency (ER) | payer OTHER, SELFPAY ==
--- NOTE | 2020-01-25 | XR_ITS ---
EXAMINATION: XR CHEST CLINICAL INFORMATION: Shortness of breath COMPARISON: 07/26/2018 TECHNIQUE: Frontal view of the chest was obtained. FINDINGS: No significant abnormality is noted involving the heart, lungs, mediastinum, bony thorax or soft tissues. XR/XR chest 1V IMPRESSION: Unremarkable examination.
[2020-01-25 21:21] VITALS: BP 136/69; PULSE 99; RESP 19; TEMP 37.1; O2SAT 98; BMI 22.2
--- NOTE | 2020-01-25 21:51 | PC.NURSE ---
pt covid swab performed, cxr in process
--- NOTE | 2020-01-25 22:22 | ED_ITS ---
HPI - URI/Sore Throat General Chief Complaint: Upper Respiratory Symptoms Stated Complaint: Flu like symptoms Time Seen by Provider: 01/25/20 21:38 Source: patient Mode of arrival: ambulatory Limitations: no limitations History of Present Illness HPI Narrative: 34-year-old female with past medical history of COPD, bipolar 1 disorder, carpal tunnel, diabetes, fibromyalgia, polycystic ovarian disease, and Postural orthostatic tachycardia syndrome presents with 1 day of upper respiratory symptoms which include cough, nasal congestion, sore throat. She is presenting for COVID-19 testing. she denies fevers, chills, shortness of breath, abdominal pain, abdominal distention, dysuria, hematuria, edema and weakness. MD elicited complaint: cough, sore throat and nasal congestion Pertinent past history: COPD Onset (ago): day(s) (1) Consistency: constant Severity: moderate Pain scale (0-10): 5 Description of mucous: clear and watery Able to tolerate fluids by mouth: Yes Exacerbating factors: swallowing Relieving factors: nothing Associated symptoms: denies other symptoms Treatments prior to arrival: none Related Data Home Medications Medication Instructions Recorded Confirmed Flovent HFA 1 puff INHALATION BID 12/13/19 12/13/19 clonazepam 1 mg PO DAILY PRN 12/13/19 12/13/19 divalproex 250 mg PO BID 12/13/19 12/13/19 valacyclovir 1,000 mg PO DAILY 12/13/19 12/13/19 zolpidem 10 mg PO BEDTIME PRN 12/13/19 12/13/19 Previous Rx's Medication Instructions Recorded cefuroxime axetil 500 mg PO Q12H #20 tab 12/16/19 Allergies Allergy/AdvReac Type Severity Reaction Status Date / Time somatropin [SOMATROPIN] Allergy Unknown UNKNOWN Verified 01/25/20 21:21 amitriptyline [AMITRIPTYLINE] AdvReac Intermediate NAUSEA, Verified 01/25/20 21:21 DIZZINESS albuterol [ALBUTEROL] AdvReac Mild TACHYCARDIA Verified 01/25/20 21:21 esomeprazole [From NEXIUM] AdvReac Mild TACHYCARDIA Verified 01/25/20 21:21 magnesium AdvReac Unknown TACHYCARDIA Verified 01/25/20 21:21 (MAGNESIUM SULFATE) Review of Systems Review of Systems: Constitutional: No Fever, no Chills, no fatigue, no Malaise ENT/Mouth: positive sore throat, positive runny nose Eyes: No Discharge Cardiovascular: No Chest Pain, No SOB Respiratory: No Cough, No Sputum, No Wheezing, No Smoke Exposure, No Dyspnea Gastrointestinal: No Nausea, No Vomiting, No Diarrhea Genitourinary: no irregular bleeding, No Dysuria, No Urinary Frequency, No Hematuria, No Urinary Incontinence, No Urgency, No Flank Pain, Musculoskeletal: positive Myalgia Skin: No rash Neuro: No Headache Yes all other systems are reviewed and are negative [facility] Past Medical History Medical History (Updated 01/25/20 @ 22:26 by Stephanie Corrigan NP) Bipolar 1 disorder Carpal tunnel syndrome COPD (chronic obstructive pulmonary disease) Diabetes mellitus Fibromyalgia History of MRSA infection No known health problems Polycystic ovarian disease Postural orthostatic tachycardia syndrome Surgical History History of tubal ligation Hx of abdominoplasty Social History Social History Household Members: Children Housing: House Alcohol intake: never Smoking Status: Never smoker Use of substances other than those prescribed or required for medical reasons: No Advance Directives: No Advance Directives Information Provided: No service: No Current occupational status: unemployed Physical Exam Vital Signs: Vital Signs: Last Vital Signs Temp 98.4 F 01/25/20 22:51 Pulse 94 01/25/20 22:51 Resp 18 01/25/20 22:51 BP 131/72 01/25/20 22:51 Pulse Ox 97 01/25/20 22:51 Body Mass Index 22.2 Appearance: Alert. Oriented X3. No acute distress. Eyes: Pupils equal, round and reactive to light. ENT: Pharynx normal. Neck: Normal inspection. Neck supple. CVS: Normal heart rate and rhythm. Pulses normal. Respiratory: No respiratory distress. Breath sounds normal. Abdomen: Soft and nontender. Skin: Skin warm and dry. Normal skin color. Normal skin turgor. Extremities: No lower extremity edema. Neuro: No motor deficit. No sensory deficit. Course Course Course Narrative: 34-year-old female presents with 1 day of upper respiratory symptoms. We will test for COVID-19 and chest x-ray. Chest x-ray negative for acute findings. Patient verbalizes understanding of and agrees to plan of care discharge home. She does understand state and Federal regulations for COVID-19 isolation process. MDM - URI/Sore Throat Differential Diagnosis Differential diagnosis: Likely upper respiratory infection, viral infection, bronchitis and influenza Medical Records Attestation: I reviewed the patient's medical records. Imaging Data Chest x-ray: Attestation: I personally reviewed and interpreted this imaging study as follows: Radiologist's impression: EXAMINATION: XR CHEST CLINICAL INFORMATION: Shortness of breath COMPARISON: 07/26/2018 TECHNIQUE: Frontal view of the chest was obtained. FINDINGS: No significant abnormality is noted involving the heart, lungs, mediastinum, bony thorax or soft tissues. XR/XR chest 1V IMPRESSION: Unremarkable examination. Discharge Plan Discharge Clinical Impression: COVID-19 Upper respiratory infection Qualifiers: URI type: unspecified viral URI Qualified Code(s): J06.9 - Acute upper respiratory infection, unspecified Patient Disposition: Home, Self-Care Instructions: Viral Syndrome (ED), COVID-19 (Coronavirus Disease 2019) (ED) Additional Instructions: You were evaluated for symptoms consistent with COVID-19. We tested you, your test results should return in 4 days. We will call you with your results. You must maintain social isolation according to state and Federal guidelines. It is your responsibility to maintain these guidelines. If your symptoms worsen or you become short of breath please seek return to the emergency department immediately. Your x-rays are negative for acute findings and pneumonia. Thank you for choosing this emergency department for evaluation. Please follow-up with primary care physician as needed. Return to the emergency department for any new, concerning, or worsening symptoms. Prescriptions: No Action clonazepam 1 mg tablet 1 mg PO DAILY PRN (Reason: Anxiety) RF: 0 zolpidem 10 mg tablet 10 mg PO BEDTIME PRN (Reason: insomnia) RF: 0 valacyclovir 1 gram tablet 1,000 mg PO DAILY RF: 0 Flovent HFA 220 mcg/actuation HFA aerosol inhaler 1 puff inhalation BID RF: 0 divalproex 250 mg tablet extended release 24 hr 250 mg PO BID RF: 0 cefuroxime axetil 500 mg tablet 500 mg PO Q12H Qty: 20 RF: 0 Interventions: ED Discharge Assessment Last Done: 01/25/20 22:50 Discharge Date/Time: 01/25/20 22:55
[2020-01-25 22:51] VITALS: BP 131/72; PULSE 94; RESP 18; TEMP 36.9; O2SAT 97
== END 2020-01-25 22:55 | disposition home or self-care (01) ==
PROVIDERS: Nurse Practitioner Family; Emergency Provider Emergency Medicine Emergency Medical Services
DX: J06.9 Acute upper respiratory infection, unspecified (principal); Z20.828 Contact with and (suspected) exposure to other viral communicable diseases; J44.9 Chronic obstructive pulmonary disease, unspecified; E11.9 Type 2 diabetes mellitus without complications; Z86.14 Personal history of Methicillin resistant Staphylococcus aureus infection; Z79.899 Other long term (current) drug therapy
CPT/HCPCS: 71045; 99283; 99284; U0003

== ENCOUNTER 2020-06-02 02:36 | Emergency (ER) | payer OTHER, SELFPAY ==
[2020-06-02 02:55] VITALS: BP 134/81; PULSE 73; RESP 16; TEMP 36.7; O2SAT 98; BMI 22.4
--- NOTE | 2020-06-02 04:07 | ED.EXTPRO ---
HPI - Extremity Problem General Chief complaint: Extremity Injury, Upper Stated complaint: Shoulder pain Time Seen by Provider: 06/02/20 03:58 Source: patient Mode of arrival: ambulatory History of Present Illness HPI Narrative: 34-year-old female presents with worsening right shoulder pain that initially started at the base of the right neck and has now spread across her shoulder and into the proximal portion of the right upper extremity. She denies any trauma, sleeping on it wrong, fevers, chills, sore throat, new cough, or abdominal discomfort. Related Data Home Medications Medication Instructions Recorded Confirmed Flovent HFA 1 puff INHALATION BID 12/13/19 12/13/19 clonazepam 1 mg PO DAILY PRN 12/13/19 12/13/19 divalproex 250 mg PO BID 12/13/19 12/13/19 valacyclovir 1,000 mg PO DAILY 12/13/19 12/13/19 zolpidem 10 mg PO BEDTIME PRN 12/13/19 12/13/19 Previous Rx's Medication Instructions Recorded cyclobenzaprine 10 mg PO BEDTIME PRN #2 tab 06/02/20 ketorolac 10 mg PO Q6H PRN 5 Days #20 tab 06/02/20 Allergies Allergy/AdvReac Type Severity Reaction Status Date / Time somatropin [SOMATROPIN] Allergy Unknown UNKNOWN Verified 06/02/20 02:53 amitriptyline [AMITRIPTYLINE] AdvReac Intermediate NAUSEA, Verified 06/02/20 02:53 DIZZINESS albuterol [ALBUTEROL] AdvReac Mild TACHYCARDIA Verified 06/02/20 02:53 esomeprazole [From NEXIUM] AdvReac Mild TACHYCARDIA Verified 06/02/20 02:53 magnesium AdvReac Unknown TACHYCARDIA Verified 06/02/20 02:53 (MAGNESIUM SULFATE) Review of Systems Review of Systems: Pertinent positives and negatives as stated in the HPI 10 point review of systems is otherwise negative. [facility] Past Medical History Source: nursing notes reviewed Medical History Bipolar 1 disorder Carpal tunnel syndrome COPD (chronic obstructive pulmonary disease) Diabetes mellitus Fibromyalgia History of MRSA infection No known health problems Polycystic ovarian disease Postural orthostatic tachycardia syndrome Surgical History History of tubal ligation Hx of abdominoplasty Social History Social History Household Members: Children Housing: House Alcohol intake: never Smoking Status: Never smoker Use of substances other than those prescribed or required for medical reasons: No Advance Directives: No service: No Current occupational status: unemployed Physical Exam Vital Signs: Vital Signs: Last Vital Signs Temp 98.1 F 06/02/20 02:55 Pulse 73 06/02/20 02:55 Resp 16 06/02/20 02:55 BP 134/81 06/02/20 02:55 Pulse Ox 98 06/02/20 02:55 Body Mass Index 22.4 VITAL SIGNS: Reviewed. GENERAL: Well developed, well nourished, in no acute distress. HEAD: Normocephalic/atraumatic EYES: PERRLA, EOMI OROPHARYNX: no oral lesions noted, posterior pharynx clear NECK: Supple, no adenopathy LUNGS: Normal breath sounds. No adventitious sounds or accessory muscle use. SpO2<98> CARDIOVASCULAR: Regular rate and rhythm without noted murmurs ABDOMEN: Soft, non-tender, non-distended with bowel sounds. MUSCULOSKELETAL: No noted deformity to the right shoulder but there is limited range of motion secondary to pain, noted muscle spasm across the right trapezius from right base of the neck out towards the right shoulder, capillary refill in the right upper extremity is less than 3 seconds with good neurovascular. Patient is noted to have difficulty with looking over her left shoulder. NEUROLOGIC: Alert and oriented x 4. Strength and sensation to light touch were grossly intact x 4. Course Course Course Narrative: 34-year-old female with history and clinical presentation most consistent with muscle spasm without identifiable inciting event. Patient will be treated with combination analgesics and muscle relaxant and re-evaluated. There is no evidence to suggest fracture/dislocation of right shoulder or vertebral abnormalities. On re-evaluation patient is feeling better and is stable for discharge to home. Discharge Plan Discharge Clinical Impression: Muscle spasm Patient Disposition: Home, Self-Care Instructions: Muscle Spasm (ED) Additional Instructions: 1. Tylenol 1000 mg, orally, every 6 hours as needed for pain control. Do not exceed 4000 mg within 24 hours. 2. Lidocaine patch, these are available at every [facility], apply to area of maximal tenderness as directed on the outside packaging. 3. Please follow up with the primary care provider in the next 2-3 days for re-evaluation. Prescriptions: New ketorolac 10 mg tablet 10 mg PO Q6H PRN (Reason: pain) 5 Days Qty: 20 RF: 0 cyclobenzaprine 10 mg tablet 10 mg PO BEDTIME PRN (Reason: muscle spasm) Qty: 2 RF: 0 No Action clonazepam 1 mg tablet 1 mg PO DAILY PRN (Reason: Anxiety) RF: 0 zolpidem 10 mg tablet 10 mg PO BEDTIME PRN (Reason: insomnia) RF: 0 valacyclovir 1 gram tablet 1,000 mg PO DAILY RF: 0 Flovent HFA 220 mcg/actuation HFA aerosol inhaler 1 puff inhalation BID RF: 0 divalproex 250 mg tablet extended release 24 hr 250 mg PO BID RF: 0 Referrals: [facility] [Primary Care Provider] - 2 days
[2020-06-02] MEDS: Ketorolac Tromethamine 15 MG/ML VIAL IM (04:19)
[2020-06-02] MEDS: Cyclobenzaprine HCl 10 MG TABLET PO (04:19)
[2020-06-02] MEDS: Lidocaine 4 % Patch ADH..PATCH 1 PATCH TRANSDERMA (04:20)
[2020-06-02] MEDS: Acetaminophen 325 MG TABLET 975 MG PO (04:20)
== END 2020-06-02 05:47 | disposition home or self-care (01) ==
PROVIDERS: Emergency Provider Student in an Organized Health Care Education/Training Program
DX: M62.838 Other muscle spasm (principal); M25.511 Pain in right shoulder; E11.9 Type 2 diabetes mellitus without complications; Z86.14 Personal history of Methicillin resistant Staphylococcus aureus infection
CPT/HCPCS: 96372; 99284; J1885

== ENCOUNTER 2020-07-10 04:37 | Inpatient (IN) | payer OTHER, SELFPAY ==
[2020-07-10] VITALS (13 sets, daily range): BP systolic 90–125; BP diastolic 55–85; PULSE 80–130; RESP 16–30; TEMP 36.6–37.1; O2SAT 92–99; BMI 21.0
--- NOTE | ~2020-07-10 | XR_ITS ---
EXAMINATION: XR CHEST CLINICAL INFORMATION: Cough COMPARISON: 01/25/2020 TECHNIQUE: Frontal view of the chest was obtained. FINDINGS: Lung volumes are symmetric. No focal consolidation is seen. No evidence of pneumothorax, pleural effusion, or pulmonary edema. The cardiomediastinal contour is unremarkable. No acute osseous findings are seen. XR/XR chest 1V IMPRESSION: No acute cardiopulmonary findings.
--- NOTE | 2020-07-10 05:29 | ED.ASTHMA ---
HPI - Asthma General Chief Complaint: Asthma Stated Complaint: asthma Time Seen by Provider: 07/10/20 04:59 Source: patient Mode of arrival: ambulatory History of Present Illness HPI Narrative: 34-year-old female with history of COPD, diagnosed at the age of 27, who presents with acute onset of waking up being unable to breathe . Patient states that she did buy a new perfume that she wore yesterday and she noticed that she had sneezed a few times on using it. In addition, patient endorses that she cleaned portions of her house with a bleach solution yesterday as well. Otherwise, she denies having received her COVID-19 vaccine, denies fevers/chills/sore throat. Related Data Home Medications Medication Instructions Recorded Confirmed Flovent HFA 1 puff INHALATION BID 12/13/19 12/13/19 clonazepam 1 mg PO DAILY PRN 12/13/19 12/13/19 divalproex 250 mg PO BID 12/13/19 12/13/19 valacyclovir 1,000 mg PO DAILY 12/13/19 12/13/19 zolpidem 10 mg PO BEDTIME PRN 12/13/19 12/13/19 Previous Rx's Medication Instructions Recorded cyclobenzaprine 10 mg PO BEDTIME PRN #2 tab 06/02/20 ketorolac 10 mg PO Q6H PRN 5 Days #20 tab 06/02/20 Allergies Allergy/AdvReac Type Severity Reaction Status Date / Time somatropin [SOMATROPIN] Allergy Unknown UNKNOWN Verified 06/02/20 02:53 amitriptyline [AMITRIPTYLINE] AdvReac Intermediate NAUSEA, Verified 06/02/20 02:53 DIZZINESS albuterol [ALBUTEROL] AdvReac Mild TACHYCARDIA Verified 06/02/20 02:53 esomeprazole [From NEXIUM] AdvReac Mild TACHYCARDIA Verified 06/02/20 02:53 magnesium AdvReac Unknown TACHYCARDIA Verified 06/02/20 02:53 (MAGNESIUM SULFATE) Review of Systems Review of Systems: Pertinent positives and negatives as stated in HPI 10 point review of systems is otherwise negative. [facility] Past Medical History Source: nursing notes reviewed Medical History Bipolar 1 disorder Carpal tunnel syndrome COPD (chronic obstructive pulmonary disease) Diabetes mellitus Fibromyalgia History of MRSA infection No known health problems Polycystic ovarian disease Postural orthostatic tachycardia syndrome Surgical History History of tubal ligation Hx of abdominoplasty Social History Social History Household Members: Children Housing: House Alcohol intake: never Smoking Status: Never smoker Advance Directives: No Advance Directives Information Provided: No Patient : No service: No Current occupational status: unemployed Physical Exam Vital Signs: Vital Signs: Last Vital Signs Temp 98.2 F 07/10/20 05:00 Pulse 94 07/10/20 06:55 Resp 30 H 07/10/20 06:55 BP 125/85 07/10/20 05:00 Pulse Ox 92 07/10/20 06:55 Body Mass Index 21.0 VITAL SIGNS: Reviewed. GENERAL: Well developed, well nourished, in no acute distress. HEAD: Normocephalic/atraumatic EYES: PERRLA, EOMI EARS: Ext canals without abnormality NOSE: Nares patent bilateral OROPHARYNX: no oral lesions noted, posterior pharynx clear, no lip/tongue/facial swelling. NECK: Supple, no adenopathy LUNGS: Significant decrease in air movement with minimal expiratory wheezing, tachypnea, but noted to speak in full sentences. SpO2<97> CARDIOVASCULAR: Regular rate and rhythm without noted murmurs ABDOMEN: Soft, non-tender, non-distended with bowel sounds. NEUROLOGIC: Alert and oriented x 4. Course Course Course Narrative: 34-year-old female with history and clinical presentation consistent with acute exacerbation. Patient has received Solu-Medrol, 10 mg hour long albuterol, 5 mg hour long albuterol with minimal improvement and no subjective improvement. Review of all investigations without acute findings and the trace leukocytosis noted is likely secondary to inflammatory response as opposed to infectious etiology. As patient has COPD lactic acid, within normal limits, was drawn as well as blood cultures. This case was briefly discussed with the inpatient hospitalist team for admission and subsequent doses of steroids. MDM - Asthma Lab Data Result diagrams: 07/10/20 05:26 07/10/20 05:25 Labs: Lab Results 07/10/20 07/10/20 07/10/20 Range/Units 05:25 05:25 05:26 WBC 11.7 H (4.8-10.8) X10*3/uL RBC 4.54 (4.20-5.50) X10*6/uL Hgb 13.5 (12.0-16.0) g/dl Hct 40.2 (37-47) % MCV 88.5 (80-98) fL MCH 29.7 (27.0-33.0) pg MCHC 33.6 (31.0-35.0) g/dl RDW 12.8 (11.0-16.0) % Plt Count 322 (160-400) X10*3/uL MPV 10.2 (9.4-12.3) fL Immature Gran % (Auto) 0.2 (0.0-0.4) % Neut % (Auto) 55.0 (45-73) % Lymph % (Auto) 30.7 (20-40) % [place] % (Auto) 10.2 (2-11) % Eos % (Auto) 3.3 (0-4) % Baso % (Auto) 0.6 (0-2) % Lymph # (Auto) 3.6 (1.2-4.9) X10*3/uL [place] # (Auto) 1.2 (0.1-1.2) X10*3/uL Eos # (Auto) 0.4 (0.0-0.4) X10*3/uL Baso # (Auto) 0.1 (0.0-0.2) X10*3/uL Abs Immat Gran (auto) 0.02 (0.00-0.03) X10*3/uL Absolute Neuts (auto) 6.4 (2.0-8.3) X10*3/uL Absolute Nucleated RBC 0.000 (0.0-0.012) X10*3/uL Nucleated RBC % (auto) 0.0 (0.0-0.2) /100WBC Sodium 138 (135-145) mmol/L Potassium 4.0 (3.3-5.1) mmol/L Chloride 105 (96-108) mmol/L Carbon Dioxide 26 (22-29) mmol/L Anion Gap 11 L (12-20) BUN 14 D (9-16) mg/dL Creatinine 0.70 (0.5-1.4) mg/dL Estim Creat Clear Calc 91.2 Estimated GFR > 60 POC Glucose (60-115) mg/dL Random Glucose 88 (60-115) mg/dL Lactic Acid 1.0 (0.5-2.0) mmol/L Calcium 8.9 (8.4-10.2) mg/dL Total Bilirubin 0.3 (0.0-1.0) mg/dL AST 16 (5-31) U/L ALT 13 (0-31) U/L Alkaline Phosphatase 74 (39-117) U/L Total Protein 7.1 (6.5-8.0) g/dL Albumin 4.2 (3.5-5.0) g/dL COVID-19 (LAKHWINDER) (Negative) COVID-19 Clin Com 07/10/20 07/10/20 Range/Units 05:33 06:01 WBC (4.8-10.8) X10*3/uL RBC (4.20-5.50) X10*6/uL Hgb (12.0-16.0) g/dl Hct (37-47) % MCV (80-98) fL MCH (27.0-33.0) pg MCHC (31.0-35.0) g/dl RDW (11.0-16.0) % Plt Count (160-400) X10*3/uL MPV (9.4-12.3) fL Immature Gran % (Auto) (0.0-0.4) % Neut % (Auto) (45-73) % Lymph % (Auto) (20-40) % [place] % (Auto) (2-11) % Eos % (Auto) (0-4) % Baso % (Auto) (0-2) % Lymph # (Auto) (1.2-4.9) X10*3/uL [place] # (Auto) (0.1-1.2) X10*3/uL Eos # (Auto) (0.0-0.4) X10*3/uL Baso # (Auto) (0.0-0.2) X10*3/uL Abs Immat Gran (auto) (0.00-0.03) X10*3/uL Absolute Neuts (auto) (2.0-8.3) X10*3/uL Absolute Nucleated RBC (0.0-0.012) X10*3/uL Nucleated RBC % (auto) (0.0-0.2) /100WBC Sodium (135-145) mmol/L Potassium (3.3-5.1) mmol/L Chloride (96-108) mmol/L Carbon Dioxide (22-29) mmol/L Anion Gap (12-20) BUN (9-16) mg/dL Creatinine (0.5-1.4) mg/dL Estim Creat Clear Calc Estimated GFR POC Glucose 81 (60-115) mg/dL Random Glucose (60-115) mg/dL Lactic Acid (0.5-2.0) mmol/L Calcium (8.4-10.2) mg/dL Total Bilirubin (0.0-1.0) mg/dL AST (5-31) U/L ALT (0-31) U/L Alkaline Phosphatase (39-117) U/L Total Protein (6.5-8.0) g/dL Albumin (3.5-5.0) g/dL COVID-19 (LAKHWINDER) Negative (Negative) COVID-19 Clin Com See Note Discharge Plan Discharge Clinical Impression: COPD exacerbation Patient Disposition: Admitted As Inpatient
[2020-07-10] MEDS: Albuterol Sulfate (0.083%) 2.5 MG/3 ML VIAL.NEB 10 MG INHALE (05:30)
[2020-07-10 05:32] LABS: Basophils Absolute Auto 0.1 X10*3/uL (0.0-0.2); Basophils Percent Auto 0.6 % (0-2); Eosinophils Absolute Auto 0.4 X10*3/uL (0.0-0.4); Eosinophils Percent Auto 3.3 % (0-4); Hematocrit 40.2 % (37-47); Hemoglobin 13.5 g/dl (12.0-16.0); Imm Gran Abs Auto 0.02 X10*3/uL (0.00-0.03); Imm Gran Pct Auto 0.2 % (0.0-0.4); Lymphocytes Absolute Auto 3.6 X10*3/uL (1.2-4.9); Lymphocytes Percent Auto 30.7 % (20-40); MANUAL DIFF FLAG NO; Mean Corpuscular HGB Conc 33.6 g/dl (31.0-35.0); Mean Corpuscular Hemoglobin 29.7 pg (27.0-33.0); Mean Corpuscular Volume 88.5 fL (80-98); Mean Platelet Volume 10.2 fL (9.4-12.3); Monocytes Absolute Auto 1.2 X10*3/uL (0.1-1.2); Monocytes Percent Auto 10.2 % (2-11); Neutrophils Absolute Auto 6.4 X10*3/uL (2.0-8.3); Platelet Count 322 X10*3/uL (160-400); Red Blood Count 4.54 X10*6/uL (4.20-5.50); Red Cell Distribution Width 12.8 % (11.0-16.0); White Blood Count 11.7 X10*3/uL (4.8-10.8)
[2020-07-10] MEDS: methylPREDNISolone Sod Succ 125 MG/2 ML VIAL IVPUSH (05:43)
[2020-07-10 05:56] LABS: COVID-19 Test Negative (Negative); IDNOW Serial# 9DD0AD1C
[2020-07-10 06:05] LABS: Alanine Aminotransferase 13 U/L (0-31); Albumin Level 4.2 g/dL (3.5-5.0); Alkaline Phosphatase 74 U/L (39-117); Anion Gap 11 (12-20); Aspartate Amino Transferase 16 U/L (5-31); Bilirubin Total 0.3 mg/dL (0.0-1.0); Blood Urea Nitrogen 14 mg/dL (9-16); Calcium 8.9 mg/dL (8.4-10.2); Carbon Dioxide 26 mmol/L (22-29); Chloride 105 mmol/L (96-108); Creatinine Clr Calc Pharmacy 91.2; Estimated Glomerular Filt Rate > 60; Glucose Random 88 mg/dL (60-115); Sodium 138 mmol/L (135-145); Total Protein 7.1 g/dL (6.5-8.0)
[2020-07-10 06:05] LABS: Glucose, Whole Blood 81 mg/dL (60-115)
[2020-07-10] MEDS: Albuterol Sulfate (0.083%) 2.5 MG/3 ML VIAL.NEB 5 MG INHALE (06:45)
[2020-07-10] MEDS: Ketorolac Tromethamine 15 MG/ML VIAL IVPUSH (06:57)
[2020-07-10] MEDS: cefTRIAXone sodium 1 GM in 0.9 % Sodium Chloride 50 ML IV (07:55)
[2020-07-10] MEDS: ondansetron HCL 4 MG/2 ML VIAL IVPUSH (08:41)
[2020-07-10] MEDS: Morphine Sulfate 4 MG/ML CARTRIDGE 2 MG IVPUSH (08:41)
[2020-07-10] MEDS: Magnesium Sulfate/H2O 2 GM/50 ML PIGGYBACK IV (08:41)
--- NOTE | 2020-07-10 09:29 | PC.NURSE ---
hospitalist at bedside
[2020-07-10] MEDS: Enoxaparin Sodium 40 MG/0.4 ML SYRINGE SUBCUT (10:29)
[2020-07-10 10:46] LABS: D Dimer < 200 NG/ML
--- NOTE | 2020-07-10 11:18 | PC.NURSE ---
called to [facility] for report, feliciano to call back
--- NOTE | 2020-07-10 11:47 | PC.NURSE ---
second attempt to give report
--- NOTE | 2020-07-10 12:07 | PC.NURSE ---
report given to gabby rn, states room needs to be cleaned and call back in 30 min
[2020-07-10] MEDS: Acetaminophen 325 MG TABLET 650 MG PO ×2 (14:21→21:51)
[2020-07-10] MEDS: methylPREDNISolone Sod Succ 40 MG/ML VIAL IV ×2 (14:21→21:51)
[2020-07-10] MEDS: Cyanocobalamin (Vitamin B-12) 1,000 MCG TABLET 1000 MCG PO (15:52)
[2020-07-10] MEDS: Spironolactone 25 MG TABLET 50 MG PO (15:52)
[2020-07-10] MEDS: Multivitamin TABLET 1 TAB PO (15:52)
[2020-07-10] MEDS: 0.9 % Sodium Chloride Flush 3 ML SYRINGE IVFLUSH ×2 (15:53→21:51)
--- NOTE | 2020-07-10 17:35 | PM.IMHP ---
History of Present Illness Date of Service: 07/10/20 Chief Complaint: dyspnea Ms Townsend is a 34 year-old nonsmoking woman with asthma/COPD, POTS, fibromyalgia, and schizoaffective disorder who developed a dry cough about 2 days ago then, quite suddenly this morning at 3:00, woke up short of breath and wheezing. She denies sick contacts, fever, chills, nasal congestion, anosmia, sore throat, purulent sputum, chest pain, palpitations, or dizziness. She bought a new perfume and used it yesterday and also cleaned her house with a dilute bleach solution yesterday. She has not seen a primary care doctor, nor her electroencephalograph technician or diabetes educator, in over a year. Several years ago, she had multiple admissions for exacerbations of her asthma/COPD. She is not on any controller medications. In the past, she was on ivabradine for inappropriate sinus tachycardia, but has been off it for years. In the ED, she received a total of 15mg of nebulized albuterol with minimal improvement in her breathing. She was also given IV magnesium sulfate and methylprednisolone. She had no evidence of pneumonia. D-dimer was negative. COVID-19 LAKHWINDER was negative. Review of Systems Review of Systems: Yes all other systems are reviewed and are negative [facility] Medical History Bipolar 1 disorder Carpal tunnel syndrome COPD (chronic obstructive pulmonary disease) Diabetes mellitus Family history of COPD (chronic obstructive pulmonary disease) Fibromyalgia History of MRSA infection Polycystic ovarian disease Postural orthostatic tachycardia syndrome Schizoaffective disorder SVT (supraventricular tachycardia) Family History Other COPD (chronic obstructive pulmonary disease) Surgical History History of tubal ligation Hx of abdominoplasty Social History Household Members: Family Housing: Condominium Do you presently have visiting nurse or other home services: No Alcohol intake: never Smoking Status: Never smoker Second Hand Smoke Exposure: No Use of substances other than those prescribed or required for medical reasons: No Have you been hit, kicked, punched, or otherwise hurt by someone within the past year? If so, by whom?: No Do you feel safe in your current relationship?: Yes Is there a partner from a previous relationship who is making you feel unsafe now?: No Are you made to feel afraid or neglected: No Advance Directives: No Advance Directives Information Provided: No Do you have thoughts of harming others: None Do you have a plan to hurt others: No Plan Recently lost weight without trying: No How much weight loss: Not applicable Eating poorly because of decreased appetite: No Nutrition screen score: 0 Patient : No : No Poor oral hygiene: No service: No Current occupational status: unemployed Meds Allergies Allergy/AdvReac Type Severity Reaction Status Date / Time somatropin [SOMATROPIN] Allergy Unknown UNKNOWN Verified 06/02/20 02:53 amitriptyline [AMITRIPTYLINE] AdvReac Intermediate NAUSEA, Verified 06/02/20 02:53 DIZZINESS albuterol [ALBUTEROL] AdvReac Mild TACHYCARDIA Verified 06/02/20 02:53 esomeprazole [From NEXIUM] AdvReac Mild TACHYCARDIA Verified 06/02/20 02:53 Active Medications: Current Medications Generic Name Dose Route Start Last Admin Trade Name Freq PRN Reason Stop Dose Admin Acetaminophen 650 mg 07/10/20 09:39 07/10/20 14:21 Acetaminophen 325 Mg Tablet PO 650 mg Q6H PRN Administration Pain, Mild (Pain Scale 1-3) Clonazepam 1 mg 07/10/20 15:32 Clonazepam 1 Mg Tablet PO DAILY PRN Anxiety Cyanocobalamin 1,000 mcg 07/10/20 15:45 07/10/20 15:52 Cyanocobalamin (Vitamin B-12) 1,000 Mcg Tablet PO 1,000 mcg DAILY MAEVE Administration Divalproex Sodium 500 mg 07/10/20 21:00 Divalproex Sodium Er 500 Mg Tab.Er.24h PO BID MAEVE Enoxaparin Sodium 40 mg 07/10/20 09:45 07/10/20 10:29 Enoxaparin Sodium 40 Mg/0.4 Ml Syringe SUBCUT 40 mg Q24H MAEVE Administration Guaifenesin/Dextromethorphan 5 ml 07/10/20 09:39 Guaifenesin Dm 100/10/5 Ml 5 Ml Syrup PO Q4H PRN Cough Ipratropium [place] 0.5 mg 07/10/20 12:00 07/10/20 15:00 Ipratropium [place] 0.5 Mg/2.5 Ml Solution INHALE Not Given RQ4H MAEVE Levalbuterol HCl 1.25 mg 07/10/20 12:00 07/10/20 15:00 Levalbuterol Hcl 1.25 Mg/0.5 Ml Vial.Neb INHALE Not Given RQ4H MAEVE Levalbuterol HCl 1.25 mg 07/10/20 09:36 Levalbuterol Hcl 1.25 Mg/0.5 Ml Vial.Neb INHALE Q2H PRN Shortness of Breath/Wheezing Lurasidone HCl 20 mg 07/10/20 21:00 Lurasidone Hcl 20 Mg Tablet PO BEDTIME [facility] Methylprednisolone Sodium Succinate 40 mg 07/10/20 13:00 07/10/20 14:21 Methylprednisolone Sod Succ 40 Mg/Ml Vial IV 40 mg Q8H MAEVE Administration Multivitamins/Vitamin C 1 tab 07/10/20 15:45 07/10/20 15:52 Multivitamin Tablet PO 1 tab DAILY MAEVE Administration Ondansetron HCl 4 mg 07/10/20 09:39 Ondansetron Hcl 4 Mg/2 Ml Vial IVPUSH Q8H PRN Nausea and Vomiting Pharmacy Consult 1 each 07/10/20 09:31 Consult Rx Perform Med Rec MISCELLANE ONCE PRN Consult order Sodium Chloride 3 ml 07/10/20 16:00 07/10/20 15:53 0.9 % Sodium Chloride Flush 3 Ml Syringe IVFLUSH 3 ml QSHIFT MAEVE Administration Spironolactone 50 mg 07/10/20 15:45 07/10/20 15:52 Spironolactone 25 Mg Tablet PO 50 mg DAILY MAEVE Administration Protocol Zolpidem Tartrate 10 mg 07/10/20 15:32 Zolpidem Tartrate 5 Mg Tablet PO BEDTIME PRN insomnia Home Medications Medication Instructions Recorded Confirmed Last Taken Type clonazepam 1 mg PO DAILY PRN 12/13/19 07/10/20 07/09/20 History zolpidem 10 mg PO BEDTIME PRN 12/13/19 07/10/20 07/09/20 History cyanocobalamin (vitamin B-12) 1,000 mcg PO DAILY 07/10/20 07/10/20 07/09/20 History divalproex [Depakote ER] 1 tab PO BID 07/10/20 07/10/20 07/09/20 History lurasidone [Latuda] 1 tab PO BEDTIME 07/10/20 07/10/20 07/09/20 History multivitamin 1 tab PO DAILY 07/10/20 07/10/20 07/09/20 History spironolactone 1 tab PO DAILY 07/10/20 07/10/20 07/09/20 History Physical Exam Vital Signs and Narrative: Vital Signs: Last Vital Signs Temp 97.8 F 07/10/20 16:00 Pulse 100 07/10/20 16:00 Resp 18 07/10/20 16:00 BP 115/78 07/10/20 16:00 Pulse Ox 96 07/10/20 16:00 Body Mass Index 21.0 Gen: very short of breath HEENT: sclera anicteric, moist mucus membranes Neck: supple Lungs: dminished air entry throughout, faint exp wheezes, sounds very tight Heart: tachycardic, no murmurs Abd: soft, non-tender, non-distended Ext: no edema Skin: warm/well-perfused Neuro: alert and oriented x3, no focal findings Psych: anxious Results Labs CBC and Chem 7: 07/10/20 05:26 07/10/20 05:25 Labs: Laboratory Results - last 24 hr 07/10/20 07/10/20 07/10/20 05:25 05:25 05:26 MCV 88.5 MCH 29.7 MCHC 33.6 RDW 12.8 Plt Count 322 MPV 10.2 Immature Gran % (Auto) 0.2 Neut % (Auto) 55.0 Lymph % (Auto) 30.7 [place] % (Auto) 10.2 Eos % (Auto) 3.3 Baso % (Auto) 0.6 Lymph # (Auto) 3.6 [place] # (Auto) 1.2 Eos # (Auto) 0.4 Baso # (Auto) 0.1 Abs Immat Gran (auto) 0.02 Absolute Neuts (auto) 6.4 Absolute Nucleated RBC 0.000 Nucleated RBC % (auto) 0.0 D-Dimer Anion Gap 11 L Estim Creat Clear Calc 91.2 Estimated GFR > 60 POC Glucose Random Glucose 88 Lactic Acid 1.0 Calcium 8.9 Total Bilirubin 0.3 AST 16 ALT 13 Alkaline Phosphatase 74 Total Protein 7.1 Albumin 4.2 COVID-19 (LAKHWINDER) COVID-19 Clin Com 07/10/20 07/10/20 07/10/20 05:33 06:01 10:31 MCV MCH MCHC RDW Plt Count MPV Immature Gran % (Auto) Neut % (Auto) Lymph % (Auto) [place] % (Auto) Eos % (Auto) Baso % (Auto) Lymph # (Auto) [place] # (Auto) Eos # (Auto) Baso # (Auto) Abs Immat Gran (auto) Absolute Neuts (auto) Absolute Nucleated RBC Nucleated RBC % (auto) D-Dimer < 200 Anion Gap Estim Creat Clear Calc Estimated GFR POC Glucose 81 Random Glucose Lactic Acid Calcium Total Bilirubin AST ALT Alkaline Phosphatase Total Protein Albumin COVID-19 (LAKHWINDER) Negative COVID-19 Clin Com See Note Imaging Radiologist's Impressions: Impressions Chest X-Ray 07/10/20 05:13 IMPRESSION: No acute cardiopulmonary findings. Assessment and Plan (1) COPD exacerbation: Status: Acute 34 year-old nonsmoking woman with asthma/COPD, POTS, fibromyalgia, and schizoaffective disorder # asthma/COPD exacerbation - admit to telemetry, give IV methlyprednisolone and standing/prn nebs. will start controller LAMA. use levalbuterol due to tachycardia. - pt states onset at age 27 yo. will check A1AT level and also consult Pulmonology- she used to see Dr Salcido # POTS - check orthostatics daily. will need to re-establish care with Cardiology as outpt # schizoaffective disorder - continue lurasidone, valproate, clonazdepam, and zolpidem # VTE ppx - LMWH # code - full # dispo - need to find out who her new PCP at [facility] is
[2020-07-10] MEDS: Zolpidem Tartrate 5 MG TABLET 10 MG PO (21:50)
[2020-07-10] MEDS: clonazePAM 1 MG TABLET PO (21:51)
[2020-07-10] MEDS: Divalproex Sodium ER 500 MG TAB.ER.24H PO (21:51)
[2020-07-10] MEDS: Lurasidone HCl 20 MG TABLET PO (21:51)
[2020-07-11] VITALS (11 sets, daily range): BP systolic 98–120; BP diastolic 48–70; PULSE 15–135; RESP 12–20; TEMP 36.3–37; O2SAT 94–100
[2020-07-11] MEDS: methylPREDNISolone Sod Succ 40 MG/ML VIAL IV ×3 (05:16→21:17)
[2020-07-11 05:22] LABS: Basophils Percent Auto 0.2 % (0-2); Hematocrit 39.6 % (37-47); Hemoglobin 13.1 g/dl (12.0-16.0); Imm Gran Abs Auto 0.11 X10*3/uL (0.00-0.03); Imm Gran Pct Auto 0.6 % (0.0-0.4); MANUAL DIFF FLAG SCAN; Mean Corpuscular HGB Conc 33.1 g/dl (31.0-35.0); Mean Corpuscular Hemoglobin 29.2 pg (27.0-33.0); Mean Corpuscular Volume 88.2 fL (80-98); Mean Platelet Volume 10.9 fL (9.4-12.3); Monocytes Absolute Auto 0.7 X10*3/uL (0.1-1.2); Monocytes Percent Auto 3.7 % (2-11); Neutrophils Absolute Auto 17.9 X10*3/uL (2.0-8.3); Neutrophils Percent Auto 90.5 % (45-73); Platelet Count 325 X10*3/uL (160-400); Red Blood Count 4.49 X10*6/uL (4.20-5.50); SCAN SMEAR FLAG 1; White Blood Count 19.8 X10*3/uL (4.8-10.8)
[2020-07-11 05:43] LABS: Anion Gap 14 (12-20); Blood Urea Nitrogen 13 mg/dL (9-16); Calcium 9.7 mg/dL (8.4-10.2); Carbon Dioxide 23 mmol/L (22-29); Chloride 107 mmol/L (96-108); Creatinine Clr Calc Pharmacy 91.2; Estimated Glomerular Filt Rate > 60; Glucose Random 140 mg/dL (60-115); Potassium 4.7 mmol/L (3.3-5.1); Sodium 139 mmol/L (135-145)
[2020-07-11 05:44] LABS: SLIDE REVIEW VERIFIED
[2020-07-11] MEDS: Divalproex Sodium ER 500 MG TAB.ER.24H PO ×2 (09:56→21:17)
[2020-07-11] MEDS: Multivitamin TABLET 1 TAB PO (09:57)
[2020-07-11] MEDS: Acetaminophen 325 MG TABLET 650 MG PO (09:57)
[2020-07-11] MEDS: Cyanocobalamin (Vitamin B-12) 1,000 MCG TABLET 1000 MCG PO (09:58)
[2020-07-11] MEDS: Spironolactone 25 MG TABLET 50 MG PO (09:58)
[2020-07-11] MEDS: 0.9 % Sodium Chloride Flush 3 ML SYRINGE IVFLUSH ×3 (09:59→21:17)
[2020-07-11] MEDS: Enoxaparin Sodium 40 MG/0.4 ML SYRINGE SUBCUT (09:59)
--- NOTE | 2020-07-11 11:21 | PM.EVENT ---
Event Note Date of Service: 07/11/20 Event Note: THIS 34 YEARS OLD FEMALE IS SEEN BY ME THIS MORNING FOR PULMONARY CONSULTATION AND MANAGEMENT. I HAVE REVIEWED HER RECENT HISTORY LAB AND IMAGING. COMPLETE NOTE DICTATED. A: ACUTE EXACERBATION OF BRONCHIAL ASTHMA/COPD, MOST LIKELY TRIGGERED BY ENVIRONMENTAL AGENTS SUCH BLEACH AND PERFUME. ALSO DUE TO THE FACT THAT SHE HAS BEEN OUT OF HER CONTROLLER AGENT. P: WEAN OFF O2. PREDNISONE 40 MG A DAY FOR 5 DAYS. SHE SHOULD BE DISCHARGED HOME ON ADVAIR 500-51 INHALATION B.I.D., CAN BE DOWNGRADED LATER ON OUTPATIENT. LEVALBUTEROL 2 PUFFS Q 4-6 HOURS P.R.N.. PATIENT NEEDS TO SET UP APPOINTMENTS FOR OUTPATIENT FOLLOW-UP.
[2020-07-11 13:36] LABS: Alpha 1 Anti-trypsin 121 mg/dL (83-199)
--- NOTE | 2020-07-11 14:18 | HO.PM.IMPN ---
Subjective Subjective Date of Service: 07/11/20 Interval History: breathing improved Still wheezing Physical Exam Vital Signs: Vital Signs: Last Vital Signs Temp 98.0 F 07/11/20 11:28 Pulse 96 07/11/20 11:28 Resp 17 07/11/20 11:28 BP 100/48 L 07/11/20 11:28 Pulse Ox 97 07/11/20 11:28 Body Mass Index 21.0 Gen: Mild shortness of breath HEENT: sclera anicteric, moist mucus membranes Neck: supple Lungs: Diminished bilaterally with faint expiratory wheezes Heart: regular rate and rhythm, no murmurs Abd: soft, non-tender, non-distended Ext: no edema Skin: warm/well-perfused Neuro: alert and oriented x3, no focal findings Psych: appropriate affect Objective Data Current Medications Generic Name Dose Route Start Last Admin Trade Name Freq PRN Reason Stop Dose Admin Acetaminophen 650 mg 07/10/20 09:39 07/11/20 09:57 Acetaminophen 325 Mg Tablet PO 650 mg Q6H PRN Administration Pain, Mild (Pain Scale 1-3) Clonazepam 1 mg 07/10/20 15:32 07/10/20 21:51 Clonazepam 1 Mg Tablet PO 1 mg DAILY PRN Administration Anxiety Cyanocobalamin 1,000 mcg 07/10/20 15:45 07/11/20 09:58 Cyanocobalamin (Vitamin B-12) 1,000 Mcg Tablet PO 1,000 mcg DAILY MAEVE Administration Divalproex Sodium 500 mg 07/10/20 21:00 07/11/20 09:56 Divalproex Sodium Er 500 Mg Tab.Er.24h PO 500 mg BID MAEVE Administration Enoxaparin Sodium 40 mg 07/10/20 09:45 07/11/20 09:59 Enoxaparin Sodium 40 Mg/0.4 Ml Syringe SUBCUT 40 mg Q24H MAEVE Administration Guaifenesin/Dextromethorphan 5 ml 07/10/20 09:39 Guaifenesin Dm 100/10/5 Ml 5 Ml Syrup PO Q4H PRN Cough Levalbuterol HCl 1.25 mg 07/10/20 09:36 07/10/20 22:12 Levalbuterol Hcl 1.25 Mg/0.5 Ml Vial.Neb INHALE 1.25 mg Q2H PRN Administration Shortness of Breath/Wheezing Lurasidone HCl 20 mg 07/10/20 21:00 07/10/20 21:51 Lurasidone Hcl 20 Mg Tablet PO 20 mg BEDTIME MAEVE Administration Methylprednisolone Sodium Succinate 40 mg 07/10/20 13:00 07/11/20 13:24 Methylprednisolone Sod Succ 40 Mg/Ml Vial IV 40 mg Q8H MAEVE Administration Multivitamins/Vitamin C 1 tab 07/10/20 15:45 07/11/20 09:57 Multivitamin Tablet PO 1 tab DAILY MAEVE Administration Ondansetron HCl 4 mg 07/10/20 09:39 Ondansetron Hcl 4 Mg/2 Ml Vial IVPUSH Q8H PRN Nausea and Vomiting Pharmacy Consult 1 each 07/10/20 09:31 Consult Rx Perform Med Rec MISCELLANE ONCE PRN Consult order Sodium Chloride 3 ml 07/10/20 16:00 07/11/20 09:59 0.9 % Sodium Chloride Flush 3 Ml Syringe IVFLUSH 3 ml QSHIFT [facility] Administration Spironolactone 50 mg 07/10/20 15:45 07/11/20 09:58 Spironolactone 25 Mg Tablet PO 50 mg DAILY [facility] Administration Protocol Tiotropium [place] 1 puff 07/11/20 08:00 07/11/20 07:25 Tiotropium [place] 18 Mcg Cap.W.Dev INHALE Not Given RDAILY [facility] Zolpidem Tartrate 10 mg 07/10/20 15:32 07/10/20 21:50 Zolpidem Tartrate 5 Mg Tablet PO 10 mg BEDTIME PRN Administration insomnia Labs CBC & Chem 7: 07/11/20 04:54 07/11/20 04:54 Labs: ITS Impressions Chest X-Ray 07/10/20 05:13 IMPRESSION: No acute cardiopulmonary findings. Microbiology Microbiology Results: Microbiology 07/10/20 05:26 Blood - Venous Blood Culture - Preliminary No growth after 24 hours. 07/10/20 05:26 Blood - Venous Blood Culture - Preliminary No growth after 24 hours. Assessment and Plan (1) COPD exacerbation: Status: Acute Assessment and Plan: Hospital day 2 34 year-old nonsmoking woman with asthma/COPD, POTS, fibromyalgia, and schizoaffective disorder admitted for asthma/COPD exacerbation # asthma/COPD exacerbation - continue IV methlyprednisolone and prn nebs, controller LABA/ICS, needs Pulm f/u. A1AT pending. # acute hypoxic resp failure - wean oxygen as tolerated # POTS - has chronic orthostatic tachycardia; reestablish care with Cardiology as outpatient to consider restarting ivabradine # schizoaffective disorder - continue lurasidone, valproate, clonazdepam, and zolpidem # VTE ppx - LMWH
[2020-07-11] MEDS: ondansetron HCL 4 MG/2 ML VIAL IVPUSH (14:45)
--- NOTE | 2020-07-11 14:49 | ECG_ITS ---
Test Reason : ST 160-190 Blood Pressure : / mmHG Vent. Rate : 127 BPM Atrial Rate : 127 BPM P-R Int : 112 ms QRS Dur : 078 ms QT Int : 300 ms P-R-T Axes : 065 062 056 degrees QTc Int : 436 ms Sinus tachycardia Otherwise normal ECG When compared to the previous EKG of Vent. rate has increased Referred By: Nia Newton Electronically Signed By:ROM WILKINS MD
--- NOTE | 2020-07-11 15:04 | P.EN_ITS ---
Event Note Date of Service: 07/11/20 Event Note: Called by RN for tachycardia with rates as high as 187. Patient co ughing during episode and became nauseous and vomited small amount. She has known POTS and in the past was on ivabradine. Telemetry shows clear P waves preceding all QRS complexes. HR down to the 130s-140s. Will start metoprolol and continue to monitor
[2020-07-11 15:33] LABS: TSH reflex Free T4 0.19 uIU/mL (0.32-4.0)
[2020-07-11 16:06] LABS: Free T4 (Free Thyroxine) 0.81 ng/dL (0.71-1.85)
[2020-07-11 16:30] LABS: UPreg QC Valid YES; Urine Pregnancy NEGATIVE (NEGATIVE)
--- NOTE | 2020-07-11 18:34 | CONS_ITS ---
DATE OF SERVICE: 07/11/2020 HISTORY OF PRESENT ILLNESS: This patient is a 34-year-old female, a known case of bronchial asthma/COPD for many years, previously has required many hospitalizations for acute exacerbation, but she has been relatively stable in the last 1 year and has not been seen by me or even by her primary care physician. Now, she ends up in the hospital with 2 days history of increased shortness of breath, tightness in her chest with some wheezing. She has had no recent infection or sick contacts. She states that she was cleaning her house with a dilute solution of bleach 1 day before her admission and she also has bought a new perfume and she did use it 1 day before admission. These could be factor for her acute exacerbation. PAST MEDICAL HISTORY: Additional past medical history includes, 1. Bipolar disorder, relatively stable. 2. Mild diabetes mellitus. 3. Fibromyalgia. 4. Polycystic ovarian disease. 5. Schizoaffective disorder. 6. Past history of supraventricular tachycardia, probably due to inhaled albuterol. MEDICATIONS: Current medications at home are supposed to be Advair and she has been out of this for a few months. Also, albuterol inhaler, but she uses more levalbuterol q.4 hours p.r.n. SOCIAL HISTORY: The patient is a nonsmoker and denies any addictions. PHYSICAL EXAMINATION: GENERAL: 34-year-old female, is relatively comfortable this morning. Respiratory rate 14, not in distress. She talked to me without any shortness of breath. THROAT: Clear. NECK: No JVD. Trachea midline. CHEST: Symmetrical. Percussion note resonant. Breath sounds are distant with prolonged expiratory phase, but no wheezes are heard at this time. CARDIAC: Sounds are normal. No murmurs or gallops. EXTREMITIES: No clubbing. No pitting edema. Peripheral pulses normal. DIAGNOSTIC DATA: Chest x-ray, no acute abnormality is noted. LABORATORY DATA: On admission, white cell count 11.7 and today is 19.8, probably steroid is related. Eosinophil count is 3.3 on admission and today is 0. COVID test is negative. CLINICAL IMPRESSION: Acute exacerbation of bronchial asthma/chronic obstructive pulmonary disease, improved today, almost back to her baseline. RECOMMENDATIONS: Wean off the oxygen. The patient should be on a short course of prednisone 40 mg a day for 5 days. The patient should continue to use Advair 500/50 one inhalation b.i.d. when she goes home. I do not think she needs LAMA. Levalbuterol 2 puffs q.4-6 hours p.r.n. The patient should be followed closely as outpatient. Thank you very much for asking me to see this patient. MD RJ Bustos/IRA / [phone]
[2020-07-11] MEDS: Metoprolol Succinate ER 12.5 MG HALFTAB.ER.24H PO (18:35)
[2020-07-11] MEDS: Lurasidone HCl 20 MG TABLET PO (21:17)
[2020-07-11] MEDS: Zolpidem Tartrate 5 MG TABLET 10 MG PO (21:17)
[2020-07-11] MEDS: clonazePAM 1 MG TABLET PO (21:17)
[2020-07-12] VITALS (8 sets, daily range): BP systolic 101–114; BP diastolic 49–67; PULSE 60–100; RESP 18; TEMP 36.3–36.7; O2SAT 92–99
[2020-07-12] MEDS: methylPREDNISolone Sod Succ 40 MG/ML VIAL IV ×2 (05:12→13:53)
[2020-07-12] MEDS: Metoprolol Succinate ER 12.5 MG HALFTAB.ER.24H PO (05:12)
[2020-07-12] MEDS: Fluticasone/Vilanterol 200/25 BLST.W.DEV 1 PUFF INHALE (08:04)
[2020-07-12] MEDS: Divalproex Sodium ER 500 MG TAB.ER.24H PO (09:20)
[2020-07-12] MEDS: Multivitamin TABLET 1 TAB PO (09:20)
[2020-07-12] MEDS: Cyanocobalamin (Vitamin B-12) 1,000 MCG TABLET 1000 MCG PO (09:20)
[2020-07-12] MEDS: 0.9 % Sodium Chloride Flush 3 ML SYRINGE IVFLUSH (09:21)
[2020-07-12] MEDS: Spironolactone 25 MG TABLET 50 MG PO (09:21)
[2020-07-12] MEDS: Enoxaparin Sodium 40 MG/0.4 ML SYRINGE SUBCUT (09:22)
--- NOTE | 2020-07-12 10:08 | MHC.CM.PN ---
PT REPORTS SHE LIVES WITH HER CHILDREN AND IS INDEPENDENT WITH CARE AND MOBILITY. PT DENIES THE USE OF DME OR HOME SERVICES. PT CONFIRMS SHE RECEIVES HER PRIMARY CARE AT [facility] HOWEVER SHE CANNOT REMEMBER THE NAME OF HER PROVIDER. PT REPORTS SHE HAS A HCP COMPLETED NAMING HER BROTHER AND MOTHER THE AGENTS. COPY REQUESTED. IMM DELIVERED CURRENT DC PLAN IS HOME WITH NO SERVICES PTS CAR IS IN LOT, SHE WILL DRIVE HERSELF HOME
[2020-07-12] MEDS: Acetaminophen 325 MG TABLET 650 MG PO (11:31)
--- NOTE | 2020-07-12 14:03 | PM.DS ---
DS: Providers Provider Date of Service: 07/12/20 Date of admission: 07/10/20 09:45 Primary care physician: [facility] Consults: 07/10/20 09:32 Consult to Pulmonology Routine Consulting Provider: Osmany Salcido Reason for consultation: COPD young onset DS: Diagnosis Discharge Diagnosis (1) Asthma with COPD with exacerbation: Status: Acute (2) POTS (postural orthostatic tachycardia syndrome): Status: Acute (3) Inappropriate sinus node tachycardia: Status: Acute (4) Subclinical hyperthyroidism: Status: Acute (5) Acute hypoxemic respiratory failure: Status: Acute DS: Medications Discharge Medications Home Medications: Home Medications Medication Instructions Recorded Confirmed clonazepam 1 mg PO DAILY PRN 12/13/19 07/10/20 zolpidem 10 mg PO BEDTIME PRN 12/13/19 07/10/20 Latuda 1 tab PO BEDTIME 07/10/20 07/10/20 cyanocobalamin (vitamin B-12) 1,000 mcg PO DAILY 07/10/20 07/10/20 divalproex [Depakote ER] 1 tab PO BID 07/10/20 07/10/20 multivitamin 1 tab PO DAILY 07/10/20 07/10/20 spironolactone 1 tab PO DAILY 07/10/20 07/10/20 Previous Rx's Medication Instructions Recorded fluticasone propion-salmeterol 1 inh INHALATION BID #60 ea 07/12/20 [Advair Diskus] levalbuterol tartrate 2 puff INHALATION Q4-6H PRN #15 g 07/12/20 metoprolol succinate 12.5 mg PO BID #30 tab 07/12/20 prednisone 40 mg PO DAILY #4 tab 07/12/20 DS: Summary Hospital Course Hospital Course: from my admission history and physical, 07/10/2020: Ms Townsend is a 34 year-old nonsmoking woman with asthma/COPD, POTS, fibromyalgia, and schizoaffective disorder who developed a dry cough about 2 days ago then, quite suddenly this morning at 3:00, woke up short of breath and wheezing. She denies sick contacts, fever, chills, nasal congestion, anosmia, sore throat, purulent sputum, chest pain, palpitations, or dizziness. She bought a new perfume and used it yesterday and also cleaned her house with a dilute bleach solution yesterday. She has not seen a primary care doctor, nor her seismograph recorder or product distribution specialist, in over a year. Several years ago, she had multiple admissions for exacerbations of her asthma/COPD. She is not on any controller medications. In the past, she was on ivabradine for inappropriate sinus tachycardia, but has been off it for years. In the ED, she received a total of 15mg of nebulized albuterol with minimal improvement in her breathing. She was also given IV magnesium sulfate and methylprednisolone. She had no evidence of pneumonia. D-dimer was negative. COVID-19 LAKHWINDER was negative. The patient was admitted to the [facility] and treated with IV methylprednisolone and p.r.n. bronchodilators. She was started by her seismograph recorder. She was weaned off of oxygen. She had several episodes of inappropriate sinus tachycardia and has known POTS. In the past she has been on ivabradine and been seen by the [facility] Cardiology clinic. She was started on low-dose metoprolol succinate and should re-establish primary care as well as care with her pulmonology and cardiology specialists. She was discharged on 2 more days of prednisone along with Advair as a controller medication; levalbuterol was prescribed due to tachycardia. She was noted to have subclinical hyperthyroidism and should have repeat thyroid function testing in 6 weeks. Time Spent with Patient Time attestation: Total time spent providing and/or coordinating discharge services: 35 Discharge coordination time: Greater than 30 minutes Quality: Stroke Does the patient have a stroke diagnosis?: No Physical Exam Vital Signs: Vital Signs: Last Vital Signs Temp 98.0 F 07/12/20 11:14 Pulse 80 07/12/20 11:14 Resp 18 07/12/20 11:14 BP 104/58 L 07/12/20 11:14 Pulse Ox 98 07/12/20 11:14 Body Mass Index 21.0 Gen: in no acute distress HEENT: sclera anicteric, moist mucus membranes Neck: supple Lungs: diminished breath sounds, no active wheezing Heart: regular rate and rhythm, no murmurs Abd: soft, non-tender, non-distended Ext: no edema Skin: warm/well-perfused Neuro: alert and oriented x3, no focal findings Psych: appropriate affect DS: Data Data Completed and Pending Completed studies during hospitalization [Text1]: Laboratory Results WBC 19.8 X10*3/uL (4.8-10.8) H 07/11/20 04:54 RBC 4.49 X10*6/uL (4.20-5.50) 07/11/20 04:54 Hgb 13.1 g/dl (12.0-16.0) 07/11/20 04:54 Hct 39.6 % (37-47) 07/11/20 04:54 MCV 88.2 fL (80-98) 07/11/20 04:54 MCH 29.2 pg (27.0-33.0) 07/11/20 04:54 MCHC 33.1 g/dl (31.0-35.0) 07/11/20 04:54 RDW 13.0 % (11.0-16.0) 07/11/20 04:54 Plt Count 325 X10*3/uL (160-400) 07/11/20 04:54 MPV 10.9 fL (9.4-12.3) 07/11/20 04:54 Immature Gran % (Auto) 0.6 % (0.0-0.4) H 07/11/20 04:54 Neut % (Auto) 90.5 % (45-73) H 07/11/20 04:54 Lymph % (Auto) 5.0 % (20-40) L 07/11/20 04:54 Owsley % (Auto) 3.7 % (2-11) 07/11/20 04:54 Eos % (Auto) 0.0 % (0-4) 07/11/20 04:54 Baso % (Auto) 0.2 % (0-2) 07/11/20 04:54 Lymph # (Auto) 1.0 X10*3/uL (1.2-4.9) L 07/11/20 04:54 Owsley # (Auto) 0.7 X10*3/uL (0.1-1.2) 07/11/20 04:54 Eos # (Auto) 0.0 X10*3/uL (0.0-0.4) 07/11/20 04:54 Baso # (Auto) 0.0 X10*3/uL (0.0-0.2) 07/11/20 04:54 Abs Immat Gran (auto) 0.11 X10*3/uL (0.00-0.03) H 07/11/20 04:54 Absolute Neuts (auto) 17.9 X10*3/uL (2.0-8.3) H 07/11/20 04:54 Absolute Nucleated RBC 0.000 X10*3/uL (0.0-0.012) 07/11/20 04:54 Nucleated RBC % (auto) 0.0 /100WBC (0.0-0.2) 07/11/20 04:54 Smear Tech's Comments VERIFIED 07/11/20 04:54 D-Dimer < 200 NG/ML 07/10/20 10:31 Sodium 139 mmol/L (135-145) 07/11/20 04:54 Potassium 4.7 mmol/L (3.3-5.1) 07/11/20 04:54 Chloride 107 mmol/L (96-108) 07/11/20 04:54 Carbon Dioxide 23 mmol/L (22-29) 07/11/20 04:54 Anion Gap 14 (12-20) 07/11/20 04:54 BUN 13 mg/dL (9-16) 07/11/20 04:54 Creatinine 0.70 mg/dL (0.5-1.4) 07/11/20 04:54 Estim Creat Clear Calc 91.2 07/11/20 04:54 Estimated GFR > 60 07/11/20 04:54 POC Glucose 81 mg/dL (60-115) 07/10/20 06:01 Random Glucose 140 mg/dL (60-115) H D 07/11/20 04:54 Lactic Acid 1.0 mmol/L (0.5-2.0) 07/10/20 05:25 Calcium 9.7 mg/dL (8.4-10.2) D 07/11/20 04:54 Total Bilirubin 0.3 mg/dL (0.0-1.0) 07/10/20 05:25 AST 16 U/L (5-31) 07/10/20 05:25 ALT 13 U/L (0-31) 07/10/20 05:25 Alkaline Phosphatase 74 U/L (39-117) 07/10/20 05:25 Total Protein 7.1 g/dL (6.5-8.0) 07/10/20 05:25 Albumin 4.2 g/dL (3.5-5.0) 07/10/20 05:25 Sbazw-3-Onfydjztsba 121 mg/dL (83-199) 07/10/20 10:31 TSH 0.19 uIU/mL (0.32-4.0) L 07/11/20 04:54 Free T4 0.81 ng/dL (0.71-1.85) 07/11/20 04:54 Urine Test NEGATIVE (NEGATIVE) 07/11/20 16:10 COVID-19 (LAKHWINDER) Negative (Negative) 07/10/20 05:33 COVID-19 Clin Com See Note 07/10/20 05:33 Impressions Chest X-Ray 07/10/20 05:13 IMPRESSION: No acute cardiopulmonary findings. Discharge Plan Discharge Patient Disposition: Home, Self-Care Discharge Diagnosis: COPD/asthma exacerbation, POTS with inappropriate tachycardia Referrals: Osmany Salcido MD [Physician] - 1 Week [facility] [Primary Care Provider] - 1 Week Costa Mireles MD [Physician] - 1 Month Discharge Medications: New prednisone 20 mg tablet 40 mg PO DAILY Qty: 4 RF: 0 levalbuterol tartrate 45 mcg/actuation HFA aerosol inhaler 2 puff inhalation Q4-6H PRN (Reason: shortness of breath or wheezing) Qty: 15 RF: 0 fluticasone propion-salmeterol [Advair Diskus] 500-50 mcg/dose blister with device 1 inh inhalation BID Qty: 60 RF: 0 metoprolol succinate 25 mg tablet extended release 24 hr 12.5 mg PO BID Qty: 30 RF: 0 Continued clonazepam 1 mg tablet 1 mg PO DAILY PRN (Reason: Anxiety) RF: 0 zolpidem 10 mg tablet 10 mg PO BEDTIME PRN (Reason: insomnia) RF: 0 divalproex [Depakote ER] 500 mg tablet extended release 24 hr 1 tab PO BID RF: 0 spironolactone 50 mg tablet 1 tab PO DAILY RF: 0 Latuda 20 mg tablet 1 tab PO BEDTIME RF: 0 multivitamin Tablet 1 tab PO DAILY RF: 0 cyanocobalamin (vitamin B-12) 1,000 mcg Tablet 1,000 mcg PO DAILY RF: 0 Discharge Orders: Discharge Order (Routine); Ordered 07/12/20 Ordered By: Nia Newton Diet: regular diet Activity on Discharge: As tolerated Stand Alone Forms: Patient Portal Discharge page Other Ambulatory Orders: TSH reflex Free T4 (Routine) Timeframe: 6 Weeks Facility: [facility] - Location: Laboratory Ordered By: Nia Newton Care Plan Goals: Improved breathing Control of inappropriately fast heart Health Concerns: Asthma/COPD POTS syndrome with inappropriate tachyardia Subclinical hyperthyroidism Plan of Treatment: Please take PREDNISONE [steroid] 40 mg daily x 2 days Please use ADVAIR inhaler 500/50 mcg 1 puff twice daily [controller inhaler] Please use LEVALBUTEROL inhaler 2 puffs every 4-6 hours as needed for shortness of breath or wheeze [rescue inhaler] Please re-establish primary care as soon as possible at [facility] within 1 week. Phone number: [phone]. Please make appointments with Dr Denzel Salcido (Pulmonology): [phone] [place] [address] Costa Mireles (Cardiology): [phone] [place] [address] [place] [address] Please recheck thyroid function tests [TSH with reflex to free T4] in 6 weeks Assessment: as above Patient Instructions: COPD (Chronic Obstructive Pulmonary Disease) (DC)
--- NOTE | 2020-07-12 14:09 | MHC.CM.PN ---
PT CLEARED FOR DC HOME TODAY WITH NO SERVICES
== END 2020-07-12 17:30 | disposition home or self-care (01) | DRG 190 ==
LOC: HO.ED 07:15 → HO.EDOVER 09:46 → HO.IMC 11:08
PROVIDERS: Admitting Provider Family Medicine; Emergency Provider Student in an Organized Health Care Education/Training Program; Visit Provider Family Medicine
DX: J44.1 Chronic obstructive pulmonary disease with (acute) exacerbation (principal); J96.01 Acute respiratory failure with hypoxia; J45.901 Unspecified asthma with (acute) exacerbation; E03.9 Hypothyroidism, unspecified; I49.8 Other specified cardiac arrhythmias; E11.9 Type 2 diabetes mellitus without complications; F25.9 Schizoaffective disorder, unspecified; Z20.822 Contact with and (suspected) exposure to COVID-19; Z79.51 Long term (current) use of inhaled steroids; Z79.899 Other long term (current) drug therapy
CPT/HCPCS: 36415; 71045; 80048; 80053; 81025; 82103; 82947; 83605; 84439; 84443; 85025; 85379; 87040; 87635; 93005; 94640; 94644; 96365; 96367; 96375; 99285; J0696; J1650; J1885; J2270; J2405; J2920; J2930; J3475

== ENCOUNTER → 2020-07-15 15:21 | Outpatient (BNVA) | payer OTHER, SELFPAY | PROVIDERS: PCP Internal Medicine; Visit Provider Internal Medicine | DX: J44.1 Chronic obstructive pulmonary disease with (acute) exacerbation (principal); J45.901 Unspecified asthma with (acute) exacerbation; J96.01 Acute respiratory failure with hypoxia | CPT/HCPCS: 99212 ==

== ENCOUNTER → 2020-07-22 10:03 | Outpatient (REF) | payer OTHER, SELFPAY ==
--- NOTE | 2020-07-22 07:00 | ECG_ITS ---
Hook-up date: 2020-07-22 10:59:00 Duration: 28:37:00 Test Indications: TACHYCARDIA Medications: [id number] QRS complexes * Ventricular ectopics which represent % of total QRS comp. * Supraventricular ectopics which represent % of total QRS comp. * Paced QRS complexs which represent % of total QRS comp. VENTRICULAR ECTOPY * Isolated * Bigeminal Cycles * Couplets * Runs * Beats in Runs * Beats LONGEST at * BPM at :: -- * Beats FASTEST at * BPM at :: -- SUPRAVENTRICULAR ECTOPY * Isolated * Couplets * Runs * Beats in Runs * Beats LONGEST at * BPM at :: -- * Beats FASTEST at * BPM at :: -- HEART RATES 63 MIN at 23:35:21 2020-07-22 87 AVG 161 MAX at 00:46:24 2020-07-23 LONGEST RR 1.1200 secs at 05:34:19 2020-07-23 S-T LEVELS Channel 1 - 128 mm at 10:59:00 2020-07-22 - 128 mm at 10:59:00 2020-07-22 Channel 2 - 128 mm at 10:59:00 2020-07-22 - 128 mm at 10:59:00 2020-07-22 Channel 3 - 128 mm at 03:01:81 -- - 128 mm at 03:01:81 Basic rhythm Normal sinus rhythm No long pause or profound bradycardia No dangerous dysrhythm periods No diary submitted Referred By: Costa Mireles Overread By: COSTA MIRELES MD
== END ==
LOC: HO.CARD 10:03
PROVIDERS: PCP Internal Medicine; Referring Provider Internal Medicine; Visit Provider Internal Medicine Cardiovascular Disease
DX: R00.0 Tachycardia, unspecified (principal)
CPT/HCPCS: 93226

== ENCOUNTER 2020-08-03 16:24 | Emergency (ER) | payer OTHER, SELFPAY ==
--- NOTE | ~2020-08-03 | CT_ITS ---
EXAMINATION: CT ABDOMEN AND PELVIS WITH CONTRAST CLINICAL INFORMATION: Mid abdominal pain. COMPARISON: CT abdomen and pelvis with contrast 12/10/2019 TECHNIQUE: Multidetector volumetric images were obtained from the superior aspect of the liver through the pubic symphysis following administration 85 mL of Omnipaque 350 intravenous contrast. Sagittal and coronal reformatted images were obtained on the technologist's workstation. Oral contrast: No This CT examination was performed using dose optimization techniques as appropriate, variously including the following: *Automated exposure control *Adjustment of mA and/or kV according to patient size (this includes techniques or standardized protocols for targeted exams where dose is matched to indication/reason for exam; i.e. extremities or head) *Use of iterative reconstruction technique DLP: 369 mGy-cm FINDINGS: LUNG BASES: The visualized lung bases are unremarkable. LIVER, GALLBLADDER, AND BILIARY TREE: The liver is normal in size, shape, and attenuation. No focal hepatic lesion or biliary ductal dilatation is present. The gallbladder is unremarkable with no evidence of radiopaque gallstones, gallbladder wall thickening, or obvious pericholecystic inflammatory changes. PANCREAS: Unremarkable. SPLEEN: Unremarkable. ADRENAL GLANDS: Unremarkable. KIDNEYS AND URETERS: The kidneys are normal in size, shape, and attenuation. No hydronephrosis, hydroureter, or calculi seen. No perinephric stranding. BLADDER: Unremarkable. GASTROINTESTINAL TRACT: There is scattered stool and gas seen throughout the colon without significant distention. The small bowel loops are normal caliber. Appendix is normal caliber. ABDOMINAL WALL: No significant hernia is appreciated. LYMPH NODES: Normal. VASCULAR: Unremarkable. PELVIC VISCERA: Uterus is retroverted and appears unremarkable. There are bilateral multiple ovarian cysts. No free fluid seen. OSSEOUS STRUCTURES: Unremarkable. CT/CT abdomen pelvis w con IMPRESSION: No acute intra-abdominal process seen. Mild constipation.
[2020-08-03 16:41] VITALS: BP 169/95; PULSE 163; RESP 18; TEMP 36.8; O2SAT 98; BMI 21.5
[2020-08-03 18:00] LABS: MANUAL DIFF FLAG NO
[2020-08-03 18:05] LABS: Basophils Percent Auto 0.4 % (0-2); Eosinophils Absolute Auto 0.2 X10*3/uL (0.0-0.4); Eosinophils Percent Auto 1.8 % (0-4); Hematocrit 44.8 % (37-47); Hemoglobin 14.7 g/dl (12.0-16.0); Imm Gran Abs Auto 0.04 X10*3/uL (0.00-0.03); Imm Gran Pct Auto 0.4 % (0.0-0.4); Lymphocytes Percent Auto 19.5 % (20-40); Mean Corpuscular HGB Conc 32.8 g/dl (31.0-35.0); Mean Corpuscular Hemoglobin 29.2 pg (27.0-33.0); Mean Corpuscular Volume 89.1 fL (80-98); Mean Platelet Volume 10.4 fL (9.4-12.3); Monocytes Absolute Auto 0.7 X10*3/uL (0.1-1.2); Monocytes Percent Auto 6.8 % (2-11); Neutrophils Absolute Auto 7.2 X10*3/uL (2.0-8.3); Neutrophils Percent Auto 71.1 % (45-73); Platelet Count 380 X10*3/uL (160-400); Red Blood Count 5.03 X10*6/uL (4.20-5.50); Red Cell Distribution Width 12.8 % (11.0-16.0); White Blood Count 10.2 X10*3/uL (4.8-10.8)
[2020-08-03 18:33] LABS: Anion Gap 15 (12-20); Blood Urea Nitrogen 8 mg/dL (9-16); Calcium 10.1 mg/dL (8.4-10.2); Carbon Dioxide 26 mmol/L (22-29); Chloride 104 mmol/L (96-108); Creatinine Clr Calc Pharmacy 85.3; Estimated Glomerular Filt Rate > 60; Glucose Random 83 mg/dL (60-115); Potassium 4.5 mmol/L (3.3-5.1); Sodium 140 mmol/L (135-145)
[2020-08-03 19:42] VITALS: BP 127/72; PULSE 129; RESP 16; TEMP 36.9; O2SAT 100
[2020-08-03 19:44] LABS: Glucose Urine UA NEG (NEG); Leukocyte Esterase Urine NEG (NEG); Nitrite Urine POS (NEG); PH 5.5 (5.0-8.0); Specific Gravity - Urine >= 1.030 (1.005-1.025); UACC Culture Trigger YES; Urine Blood TRACE (NEG); Urine Ketones 15 MG/DL (NEG); Urine Protein NEG (NEG-TRACE)
[2020-08-03 19:45] LABS: Appearance Urine HAZY; Color Urine YELLOW
[2020-08-03 19:49] LABS: UPreg QC Valid YES; Urine Pregnancy NEGATIVE (NEGATIVE)
[2020-08-03 19:53] LABS: Bacteria Urine 2+ /LPF; Mucus Urine 1+ /LPF; RBC Urine 0-2 /HPF (0); Squamous Epithelial Cell Urine 1+ /LPF; WBC Urine 0-2 /HPF (0-4)
--- NOTE | 2020-08-03 20:41 | ED_ITS ---
HPI - Abdominal Pain General Chief Complaint: Abdominal Pain Stated Complaint: abd pain, nausea Time Seen by Provider: 08/03/20 20:08 Source: patient Mode of arrival: ambulatory Limitations: no limitations History of Present Illness HPI narrative: Patient presents to the ED for abdominal pain and dry heaving. Patient states abdominal pain woke up at 06:00 patient states mid abdominal pain. Patient states never having this type of abdominal pain before. Patient states no fever, chills, dysuria, flank pain. Patient denies any vaginal discharge or vaginal bleeding. Related Data Home Medications Medication Instructions Recorded Confirmed clonazepam 1 mg PO DAILY PRN 12/13/19 07/10/20 zolpidem 10 mg PO BEDTIME PRN 12/13/19 07/10/20 Latuda 1 tab PO BEDTIME 07/10/20 07/10/20 cyanocobalamin (vitamin B-12) 1,000 mcg PO DAILY 07/10/20 07/10/20 divalproex [Depakote ER] 1 tab PO BID 07/10/20 07/10/20 multivitamin 1 tab PO DAILY 07/10/20 07/10/20 spironolactone 1 tab PO DAILY 07/10/20 07/10/20 Previous Rx's Medication Instructions Recorded fluticasone propion-salmeterol 1 inh INHALATION BID #60 ea 07/12/20 [Advair Diskus] levalbuterol tartrate 2 puff INHALATION Q4-6H PRN #15 g 07/12/20 metoprolol succinate 12.5 mg PO BID #30 tab 07/12/20 montelukast 10 mg tablet 10 mg PO DAILY 30 Days #30 tab 07/15/20 nitrofurantoin monohyd/m-cryst 100 mg PO Q12H 7 Days #14 cap 08/03/20 [Macrobid] Allergies Allergy/AdvReac Type Severity Reaction Status Date / Time somatropin [SOMATROPIN] Allergy Unknown UNKNOWN Verified 07/15/20 15:26 amitriptyline [AMITRIPTYLINE] AdvReac Intermediate NAUSEA, Verified 07/15/20 15:26 DIZZINESS albuterol [ALBUTEROL] AdvReac Mild TACHYCARDIA Verified 07/15/20 15:26 esomeprazole [From NEXIUM] AdvReac Mild TACHYCARDIA Verified 07/15/20 15:26 Review of Systems Review of Systems Yes all other systems are reviewed and are negative Constitutional: Reports as per HPI and Reports no additional constitutional complaints Eyes: Reports as per HPI and Reports no additional eye complaints Reports system reviewed and no additional complaints, except as documented and Reports as per HPI Cardiovascular: Reports as per HPI and Reports no additional cardiovascular complaints Respiratory: Reports as per HPI and Reports no additional respiratory complaints Gastrointestinal: Reports as per HPI, Reports no additional gastrointestinal complaints and Reports abdominal pain (mid bdominal pain) Musculoskeletal: Reports no additional musculoskeletal complaints and Reports as per HPI Reports system reviewed and no additional complaints, except as documented Psychiatric: Reports no additional psychiatric complaints and Reports as per HPI Physical Exam Vital Signs: Vital Signs: Last Vital Signs Temp 98.1 F 08/03/20 23:49 Pulse 79 08/03/20 23:49 Resp 16 08/03/20 23:49 BP 126/74 08/03/20 23:49 Pulse Ox 100 08/03/20 23:49 Body Mass Index 21.5 Const: General: cooperative, healthy appearing, comfortable, well developed and acute distress Orientation/consciousness: patient oriented x3 HENMT: Head: Yes normal to inspection, Yes No palpable skull fracture present, Yes normocephalic and Yes atraumatic Eyes: General: appearance normal, both eyes and all related structures Neck: Neck: Yes normal visual inspection, Yes full ROM, Yes no lymphadenopathy, Yes no meningeal signs, Yes trachea midline, Yes supple and No tender Chest: Chest palpation & inspection: normal inspection of the chest and normal palpation of entire chest wall Resp: Effort & Inspection: normal respiratory effort and able to speak in complete sentences Auscultation: clear to auscultation bilaterally Cardio: Jugular venous distension: no JVD Heart sounds: S1 normal heart sound present and S2 normal heart sound present GI: Inspection: Yes normal to inspection and No abdominal wall ecchymosis Palpation (GI): Soft to palpation, not firm, Tenderness to palpation present (GI) (Mid abdominal tenderness), no guarding and not rigid : General: No CVA tenderness and Yes no CVA tenderness Back/Spine/Pelvis: Back: no CVA tenderness, No CVA tenderness and No back tenderness Skin: General skin exam: no rashes or lesions noted and elasticity normal Neuro: General: patient oriented x3, gait normal, no meningeal signs and CN's II-XI intact bilaterally Cranial nerves: Yes CN's II-XII intact bilaterally Extrem: General: Yes normal to inspection and Yes full ROM Psych: Appearance: grossly normal, well kempt and not disheveled Course Course Course Narrative: Will do labs. Reevaluation(s) Reevaluation #1: UA shows UTI with patient tachycardic very tender and mid abdominal area. Was sent for CT scan. Will do EKG. GI cocktail ordered. Time: 20:49 Reevaluation #2: Patient's abdominal CT scan came back normal. Patient vital signs improved. UA shows UTI. Patient be discharged with antibiotics. Troponi n negative. EKG negative for STEMI. Patient states she feels better would like to be discharged Time: 23:33 MDM - Abdominal Pain MDM Narrative Medical decision making narrative: UTI Lab Data Result diagrams: 08/03/20 17:47 08/03/20 17:47 Labs: Lab Results 08/03/20 08/03/20 08/03/20 Range/Units 17:47 17:47 19:34 WBC 10.2 (4.8-10.8) X10*3/uL RBC 5.03 (4.20-5.50) X10*6/uL Hgb 14.7 (12.0-16.0) g/dl Hct 44.8 (37-47) % MCV 89.1 (80-98) fL MCH 29.2 (27.0-33.0) pg MCHC 32.8 (31.0-35.0) g/dl RDW 12.8 (11.0-16.0) % Plt Count 380 (160-400) X10*3/uL MPV 10.4 (9.4-12.3) fL Immature Gran % (Auto) 0.4 (0.0-0.4) % Neut % (Auto) 71.1 (45-73) % Lymph % (Auto) 19.5 L (20-40) % [place] % (Auto) 6.8 (2-11) % Eos % (Auto) 1.8 (0-4) % Baso % (Auto) 0.4 (0-2) % Lymph # (Auto) 2.0 (1.2-4.9) X10*3/uL [place] # (Auto) 0.7 (0.1-1.2) X10*3/uL Eos # (Auto) 0.2 (0.0-0.4) X10*3/uL Baso # (Auto) 0.0 (0.0-0.2) X10*3/uL Abs Immat Gran (auto) 0.04 H (0.00-0.03) X10*3/uL Absolute Neuts (auto) 7.2 (2.0-8.3) X10*3/uL Absolute Nucleated RBC 0.000 (0.0-0.012) X10*3/uL Nucleated RBC % (auto) 0.0 (0.0-0.2) /100WBC Sodium 140 (135-145) mmol/L Potassium 4.5 (3.3-5.1) mmol/L Chloride 104 (96-108) mmol/L Carbon Dioxide 26 (22-29) mmol/L Anion Gap 15 (12-20) BUN 8 L (9-16) mg/dL Creatinine 0.68 (0.5-1.4) mg/dL Estim Creat Clear Calc 85.3 Estimated GFR > 60 Random Glucose 83 D (60-115) mg/dL Calcium 10.1 (8.4-10.2) mg/dL Troponin I High Sens (<3.5-17.0) ng/L Urine Color YELLOW Urine Appearance HAZY Urine pH 5.5 (5.0-8.0) Ur Specific [place] >= 1.030 H (1.005-1.025) Urine Protein NEG (NEG-TRACE) MG/DL Urine Glucose (UA) NEG (NEG) MG/DL Urine Ketones 15 (NEG) MG/DL Urine Blood TRACE (NEG) Urine Nitrite POS H (NEG) Ur Leukocyte Esterase NEG (NEG) Urine RBC 0-2 (0) /HPF Urine WBC 0-2 (0-4) /HPF Ur Squamous Epith Cells 1+ /LPF Urine Bacteria 2+ /LPF Urine Mucus 1+ /LPF Urine Test (NEGATIVE) 08/03/20 08/03/20 Range/Units 19:34 21:03 WBC (4.8-10.8) X10*3/uL RBC (4.20-5.50) X10*6/uL Hgb (12.0-16.0) g/dl Hct (37-47) % MCV (80-98) fL MCH (27.0-33.0) pg MCHC (31.0-35.0) g/dl RDW (11.0-16.0) % Plt Count (160-400) X10*3/uL MPV (9.4-12.3) fL Immature Gran % (Auto) (0.0-0.4) % Neut % (Auto) (45-73) % Lymph % (Auto) (20-40) % [place] % (Auto) (2-11) % Eos % (Auto) (0-4) % Baso % (Auto) (0-2) % Lymph # (Auto) (1.2-4.9) X10*3/uL [place] # (Auto) (0.1-1.2) X10*3/uL Eos # (Auto) (0.0-0.4) X10*3/uL Baso # (Auto) (0.0-0.2) X10*3/uL Abs Immat Gran (auto) (0.00-0.03) X10*3/uL Absolute Neuts (auto) (2.0-8.3) X10*3/uL Absolute Nucleated RBC (0.0-0.012) X10*3/uL Nucleated RBC % (auto) (0.0-0.2) /100WBC Sodium (135-145) mmol/L Potassium (3.3-5.1) mmol/L Chloride (96-108) mmol/L Carbon Dioxide (22-29) mmol/L Anion Gap (12-20) BUN (9-16) mg/dL Creatinine (0.5-1.4) mg/dL Estim Creat Clear Calc Estimated GFR Random Glucose (60-115) mg/dL Calcium (8.4-10.2) mg/dL Troponin I High Sens < 3.5 (<3.5-17.0) ng/L Urine Color Urine Appearance Urine pH (5.0-8.0) Ur Specific [place] (1.005-1.025) Urine Protein (NEG-TRACE) MG/DL Urine Glucose (UA) (NEG) MG/DL Urine Ketones (NEG) MG/DL Urine Blood (NEG) Urine Nitrite (NEG) Ur Leukocyte Esterase (NEG) Urine RBC (0) /HPF Urine WBC (0-4) /HPF Ur Squamous Epith Cells /LPF Urine Bacteria /LPF Urine Mucus /LPF Urine Test NEGATIVE (NEGATIVE) ECG Data Interpretation: Normal sinus rhythm. Ventricular rate 80. Pr interval 122. QRS is 82. QTC 445. Negative STEMI Discharge Plan Discharge Clinical Impression: UTI (urinary tract infection) Patient Disposition: Home, Self-Care Instructions: Urinary Tract Infection in Women (ED) Additional Instructions: Return to the ED immediately for any worsening abdominal pain, flank pain, fever, chills, dysuria, hematuria, nausea, emesis, or any other concerning symptoms. In blood work came back normal. EKG normal. Troponin negative. Your vital signs improved. Urine shows UTI. Please follow-up with PCP Prescriptions: New nitrofurantoin monohyd/m-cryst [Macrobid] 100 mg capsule 100 mg PO Q12H 7 Days Qty: 14 RF: 0 No Action clonazepam 1 mg tablet 1 mg PO DAILY PRN (Reason: Anxiety) RF: 0 zolpidem 10 mg tablet 10 mg PO BEDTIME PRN (Reason: insomnia) RF: 0 divalproex [Depakote ER] 500 mg tablet extended release 24 hr 1 tab PO BID RF: 0 spironolactone 50 mg tablet 1 tab PO DAILY RF: 0 Latuda 20 mg tablet 1 tab PO BEDTIME RF: 0 multivitamin Tablet 1 tab PO DAILY RF: 0 cyanocobalamin (vitamin B-12) 1,000 mcg Tablet 1,000 mcg PO DAILY RF: 0 levalbuterol tartrate 45 mcg/actuation HFA aerosol inhaler 2 puff inhalation Q4-6H PRN (Reason: shortness of breath or wheezing) Qty: 15 RF: 0 fluticasone propion-salmeterol [Advair Diskus] 500-50 mcg/dose blister with device 1 inh inhalation BID Qty: 60 RF: 0 metoprolol succinate 25 mg tablet extended release 24 hr 12.5 mg PO BID Qty: 30 RF: 0 montelukast 10 mg tablet 10 mg PO DAILY 30 Days Qty: 30 RF: 5 Stand Alone Forms: Work/School Release Interventions: ED Discharge Assessment Last Done: 08/03/20 23:49 Discharge Date/Time: 08/03/20 23:50 Print Language: Setswana [facility] Past Medical History Medical History Asthma with COPD with exacerbation Bipolar 1 disorder Carpal tunnel syndrome COPD (chronic obstructive pulmonary disease) Diabetes mellitus Family history of COPD (chronic obstructive pulmonary disease) Fibromyalgia History of MRSA infection Inappropriate sinus node tachycardia Polycystic ovarian disease Postural orthostatic tachycardia syndrome POTS (postural orthostatic tachycardia syndrome) Schizoaffective disorder Subclinical hyperthyroidism SVT (supraventricular tachycardia) Surgical History History of tubal ligation Hx of abdominoplasty Family History Family History Other COPD (chronic obstructive pulmonary disease) Social History Social History Household Members: [facility] Do you presently have visiting nurse or other home services: No Alcohol intake: never Patient Tobacco Use Status: Never used Tobacco Second Hand Smoke Exposure: No Use of substances other than those prescribed or required for medical reasons: No Advance Directives: No Advance Directives Information Provided: No Patient : No service: No Current occupational status: unemployed
--- NOTE | 2020-08-03 20:47 | ECG_ITS ---
Test Reason : ABDOMINAL PAIN Blood Pressure : / mmHG Vent. Rate : 080 BPM Atrial Rate : 080 BPM P-R Int : 122 ms QRS Dur : 082 ms QT Int : 386 ms P-R-T Axes : 047 067 054 degrees QTc Int : 445 ms Normal sinus rhythm Normal ECG When compared with ECG of 11-JUL-2020 14:43, Vent. rate has decreased BY 47 BPM Referred By: Davon Ricci Electronically Signed By:TOM CASTORENA
[2020-08-03] MEDS: ondansetron HCL 4 MG/2 ML VIAL IVPUSH (21:03)
[2020-08-03] MEDS: Lidocaine HCl Viscous 2 % 15 ML SOLUTION MUCOUS MEM (21:03)
[2020-08-03] MEDS: Famotidine/PF 20 MG/2 ML VIAL IVPUSH (21:03)
[2020-08-03] MEDS: Magnesium Hydrox/Alum Hydrox 30 ML ORAL.SUSP PO (21:03)
[2020-08-03] MEDS: 0.9 % Sodium Chloride 1,000 ML 999 ML IV (21:04)
[2020-08-03] MEDS: iohexoL 350 MG/ML 100 ML INFUS..BTL 85 ML IV (21:21)
[2020-08-03 21:25] VITALS: BP 119/76; PULSE 82; RESP 20; TEMP 36.8; O2SAT 100
[2020-08-03 21:47] LABS: Troponin-I High Sensitivity < 3.5 ng/L (<3.5-17.0)
[2020-08-03 23:49] VITALS: BP 126/74; PULSE 79; RESP 16; TEMP 36.7; O2SAT 100
== END 2020-08-03 23:50 | disposition home or self-care (01) ==
PROVIDERS: Physician Assistant; Emergency Provider Internal Medicine
DX: N39.0 Urinary tract infection, site not specified (principal); E11.9 Type 2 diabetes mellitus without complications; J44.9 Chronic obstructive pulmonary disease, unspecified
CPT/HCPCS: 36415; 74177; 80048; 81001; 81003; 81025; 84484; 85025; 87086; 87088; 87186; 93005; 96361; 96374; 96375; 99284; J2405; Q9967

== ENCOUNTER 2020-09-03 | Outpatient (REF) | payer OTHER, SELFPAY ==
--- NOTE | ~2020-09-03 | US_ITS ---
EXAMINATION: US THYROID CLINICAL INFORMATION: Thyrotoxicosis. COMPARISON: Ultrasound soft tissue head/neck thyroid dated 12/20/2013. TECHNIQUE: Linear transducer grayscale and color Doppler examination with attention to the region of the thyroid. FINDINGS: SIZE: Measurements of the thyroid lobes and nodules are given in sagittal, anteroposterior and transverse dimensions respectively. Right Thyroid Lobe: 4.7 x 1.6 x 1.9 cm, volume 7.1 mL. Previously 5.3 x 1.1 x 1.6 cm, volume 4.9 mL. Parenchyma: The gland echotexture is homogeneous. Thyroid vascularity is normal. Left Thyroid Lobe: 5.1 x 1.5 x 1.3 cm, volume 5.1 mL. Previously 5.1 x 1.2 x 1.4 cm, volume 4.4 mL. Parenchyma: The gland echotexture is homogeneous. Thyroid vascularity is normal. Isthmus: 0.2 cm in maximum AP dimension. Previously 0.2 cm. No focal thyroid nodule is seen. NODES: No lymphadenopathy is seen in the tissue surrounding the thyroid gland. US/US thyroid IMPRESSION: Normal thyroid ultrasound.
== END 2020-09-03 00:01 | disposition home or self-care (01) ==
LOC: HO.US
PROVIDERS: Visit Provider Registered Nurse Community Health
DX: E05.90 Thyrotoxicosis, unspecified without thyrotoxic crisis or storm (principal)
CPT/HCPCS: 76536

== ENCOUNTER 2020-09-22 21:55 | Emergency (ER) | payer OTHER, SELFPAY ==
--- NOTE | ~2020-09-22 | XR_ITS ---
EXAMINATION: CHEST 2 VIEWS CLINICAL INFORMATION: cough sob . COMPARISON: 07/10/2020. TECHNIQUE: PA and lateral views of the chest obtained. FINDINGS: The lungs are well expanded. No focal infiltrate, effusion, edema, or pneumothorax. Cardiac and mediastinal silhouettes are within normal limits for technique. No acute bony abnormality seen XR/XR chest 2V IMPRESSION: No evidence of acute disease
[2020-09-22 22:05] VITALS: BP 176/74; PULSE 97; RESP 20; TEMP 37.1; O2SAT 94; BMI 21.9
[2020-09-22 22:35] LABS: COVID-19 Test Negative (Negative)
--- NOTE | 2020-09-23 00:23 | PC.NURSE ---
PA at bedside for primary eval.
--- NOTE | 2020-09-23 00:30 | ED.URI ---
HPI - URI/Sore Throat General Chief Complaint: Upper Respiratory Symptoms Stated Complaint: sob Time Seen by Provider: 09/23/20 00:19 Source: patient Mode of arrival: ambulatory Limitations: no limitations History of Present Illness HPI Narrative: Patient is a 35-year-old female with a past medical history of asthma, bipolar 1, dm 2, fibromyalgia and schizoaffective disorder, SVT and POTS who presents with 7 days of upper respiratory infection. She states she has a reactive cough, sore throat, fever, chest discomfort and sinus pain. She states she was tested 2 days ago for COVID and was negative. She has yet to receive her COVID vaccination. She has been taking TheraFlu with no improvement in her symptoms. Her partners also sick with similar symptoms. She is able to tolerate liquids. Related Data Home Medications Medication Instructions Recorded Confirmed clonazepam 1 mg tablet 1 mg PO DAILY PRN 12/13/19 07/10/20 zolpidem 10 mg tablet 10 mg PO BEDTIME PRN 12/13/19 07/10/20 cyanocobalamin (vitamin B-12) 1,000 mcg PO DAILY 07/10/20 07/10/20 1,000 mcg tablet divalproex 500 mg tablet,extended 1 tab PO BID 07/10/20 07/10/20 release 24 hr (Depakote ER) lurasidone 20 mg tablet (Latuda) 1 tab PO BEDTIME 07/10/20 07/10/20 multivitamin 1 tab PO DAILY 07/10/20 07/10/20 spironolactone 50 mg tablet 1 tab PO DAILY 07/10/20 07/10/20 Previous Rx's Medication Instructions Recorded fluticasone 500 mcg-salmeterol 50 1 inh INHALATION BID #60 ea 07/12/20 mcg/dose blistr powdr for inhalation (Advair Diskus) levalbuterol tartrate 45 2 puff INHALATION Q4-6H PRN #15 g 07/12/20 mcg/actuation aerosol inhaler metoprolol succinate 25 mg 12.5 mg PO BID #30 tab 07/12/20 tablet,extended release 24 hr montelukast 10 mg tablet 10 mg PO DAILY 30 Days #30 tab 07/15/20 nitrofurantoin 100 mg PO Q12H 7 Days #14 cap 08/03/20 monohydrate/macrocrystals 100 mg capsule (Macrobid) amoxicillin 875 mg-potassium 1 tab PO Q12H 7 Days #14 tab 09/23/20 clavulanate 125 mg tablet (Augmentin) Allergies Allergy/AdvReac Type Severity Reaction Status Date / Time somatropin [SOMATROPIN] Allergy Unknown UNKNOWN Verified 07/15/20 15:26 amitriptyline [AMITRIPTYLINE] AdvReac Intermediate NAUSEA, Verified 07/15/20 15:26 DIZZINESS albuterol [ALBUTEROL] AdvReac Mild TACHYCARDIA Verified 07/15/20 15:26 esomeprazole [From NEXIUM] AdvReac Mild TACHYCARDIA Verified 07/15/20 15:26 Review of Systems Review of Systems: Yes all other systems are reviewed and are negative [facility] Past Medical History Medical History Asthma with COPD with exacerbation Bipolar 1 disorder Carpal tunnel syndrome COPD (chronic obstructive pulmonary disease) Diabetes mellitus Family history of COPD (chronic obstructive pulmonary disease) Fibromyalgia History of MRSA infection Inappropriate sinus node tachycardia Polycystic ovarian disease Postural orthostatic tachycardia syndrome POTS (postural orthostatic tachycardia syndrome) Schizoaffective disorder Subclinical hyperthyroidism SVT (supraventricular tachycardia) Surgical History History of tubal ligation Hx of abdominoplasty Family History Family History Other COPD (chronic obstructive pulmonary disease) Social History Social History Household Members: [facility] Do you presently have visiting nurse or other home services: No Alcohol intake: never Patient Tobacco Use Status: Never used Tobacco Second Hand Smoke Exposure: No Advance Directives: No Advance Directives Information Provided: No Patient : No service: No Current occupational status: unemployed Physical Exam Vital Signs: Vital Signs: Last Vital Signs Temp 98.8 F 09/22/20 22:05 Pulse 97 09/22/20 22:05 Resp 20 09/22/20 22:05 BP 176/74 H 09/22/20 22:05 Pulse Ox 94 09/22/20 22:05 Body Mass Index 21.9 Const: General: cooperative, healthy appearing, comfortable, no acute distress and well developed Orientation/consciousness: patient oriented x3 Limitations: no limitations HENMT: Head: Yes normal to inspection Ears: hearing grossly normal bilaterally, external ears normal and TM abnormal bulging, wth effusion and with fluid behind the TM; Negative for not dull, not erythematous, with no loss of landmarks and not perforated General nose exam: Normal external nose present Face and sinus: Yes normal facial exam and No sinuses nontender (frontal) Throat: No posterior oropharynx abnormal (Erythema, no exudates) and No cobblestoning Eyes: General: appearance normal, both eyes and all related structures Neck: Neck: Yes normal visual inspection and Yes full ROM Resp: Effort & Inspection: normal respiratory effort and able to speak in complete sentences Auscultation: clear to auscultation bilaterally Cardio: Rate: regular rate Skin: General skin exam: no rashes or lesions noted Neuro: General: patient oriented x3 Extrem: General: Yes normal to inspection Course Course Course Narrative: Patient is a 35-year-old female with a past medical history of asthma, bipolar 1, dm 2, fibromyalgia and schizoaffective disorder, SVT and POTS who presents with 7 days of productive cough, sore throat, fever, chest discomfort and sinus pain. VSS, physical exam reveals fluid behind the ears as well as erythematous posterior oropharynx and tender sinuses, frontal. Likely sinus infection, as it has been more than 7 days, will give 1st dose of antibiotics in ED and sent home patient with prescription. MDM - URI/Sore Throat Lab Data Attestation: I reviewed the patient's lab results. Labs: Lab Results 09/22/20 09/23/20 Range/Units 22:16 00:28 COVID-19 (LAKHWINDER) Negative (Negative) COVID-19 Clin Com See Note S. pyogenes GrpA RITESH Negative (Negative) Imaging Data Chest x-ray: Attestation: I personally reviewed and interpreted this imaging study as follows: Radiologist's impression: [address] [address] XRay Report Signed Patient: Guillermina Townsend MR#: [id number] : 1985 Acct:[id number] Age/Sex: 35 / F ADM Date: 09/22/20 Loc: HO.ED Attending Dr: Ordering Physician: Robson Smith MD Date of Service: 09/22/20 Procedure(s): XR chest 2V Accession Number(s): [id number] cc: Robson Smith MD~ EXAMINATION: CHEST 2 VIEWS CLINICAL INFORMATION: cough sob . COMPARISON: 07/10/2020. TECHNIQUE: PA and lateral views of the chest obtained.? FINDINGS: The lungs are well expanded. No focal infiltrate, effusion, edema, or pneumothorax. Cardiac and mediastinal silhouettes are within normal limits for technique. No acute bony abnormality seen XR/XR chest 2V IMPRESSION: No evidence of acute disease ? Dictated By: LUCERO JOYNER MD Signed By: <Electronically signed by LUCERO JOYNER MD in OV> 09/22/202246 DD/ 38 TD/TT:? Hiv Counselor: CT Discharge Plan Discharge Clinical Impression: Acute infection of sinus Qualifiers: Sinusitis location: frontal Recurrence: non-recurrent Qualified Code(s): J01.10 - Acute frontal sinusitis, unspecified Patient Disposition: Home, Self-Care Instructions: Sinusitis (ED) Additional Instructions: Please be sure to drink plenty of fluids, we gave your 1st dose of antibiotics in the emergency department and I have sent the remainder of the prescription to your pharmacy, please tow picker this prescription in the morning and take the antibiotics as directed. Please be sure you are eating and drinking and do not get dehydrated. You can take ibuprofen for your throat pain and acetaminophen for your fever. If he becomes short of breath or have chest pain, please return to the emergency department. Prescriptions: New amoxicillin-pot clavulanate [Augmentin] 875-125 mg tablet 1 tab PO Q12H 7 Days Qty: 14 RF: 0 No Action clonazepam 1 mg tablet 1 mg PO DAILY PRN (Reason: Anxiety) RF: 0 zolpidem 10 mg tablet 10 mg PO BEDTIME PRN (Reason: insomnia) RF: 0 divalproex [Depakote ER] 500 mg tablet extended release 24 hr 1 tab PO BID RF: 0 spironolactone 50 mg tablet 1 tab PO DAILY RF: 0 Latuda 20 mg tablet 1 tab PO BEDTIME RF: 0 multivitamin Tablet 1 tab PO DAILY RF: 0 cyanocobalamin (vitamin B-12) 1,000 mcg Tablet 1,000 mcg PO DAILY RF: 0 levalbuterol tartrate 45 mcg/actuation HFA aerosol inhaler 2 puff inhalation Q4-6H PRN (Reason: shortness of breath or wheezing) Qty: 15 RF: 0 fluticasone propion-salmeterol [Advair Diskus] 500-50 mcg/dose blister with device 1 inh inhalation BID Qty: 60 RF: 0 metoprolol succinate 25 mg tablet extended release 24 hr 12.5 mg PO BID Qty: 30 RF: 0 nitrofurantoin monohyd/m-cryst [Macrobid] 100 mg capsule 100 mg PO Q12H 7 Days Qty: 14 RF: 0 montelukast 10 mg tablet 10 mg PO DAILY 30 Days Qty: 30 RF: 5 Stand Alone Forms: Work/School Release Interventions: ED Discharge Assessment Last Done: 09/23/20 00:31 Discharge Date/Time: 09/23/20 00:37
[2020-09-23] MEDS: Amoxicillin/Potassium Clav 875 MG TABLET PO (00:34)
--- NOTE | 2020-09-23 00:35 | PC.NURSE ---
Pt medicated per APR, aware of plan for DC home.
[2020-09-23 00:41] LABS: Strep A Nucleic Acid Negative (Negative)
== END 2020-09-23 00:37 | disposition home or self-care (01) ==
PROVIDERS: Emergency Medicine; Physician Assistant; Emergency Provider Emergency Medicine
DX: J01.10 Acute frontal sinusitis, unspecified (principal); Z20.822 Contact with and (suspected) exposure to COVID-19; J02.9 Acute pharyngitis, unspecified; E11.9 Type 2 diabetes mellitus without complications; J44.9 Chronic obstructive pulmonary disease, unspecified
CPT/HCPCS: 36415; 71046; 87635; 87651; 99283

== ENCOUNTER 2020-11-18 15:10 | Emergency (ER) | payer OTHER, SELFPAY ==
[2020-11-18 15:17] VITALS: BP 120/79; PULSE 82; RESP 20; TEMP 36.9; O2SAT 100; BMI 21.9
[2020-11-18 15:33] LABS: Appearance Urine HAZY; Color Urine YELLOW; Glucose Urine UA NEG (NEG); Leukocyte Esterase Urine 1+ (NEG); Nitrite Urine POS (NEG); Specific Gravity - Urine 1.025 (1.005-1.025); UACC Culture Trigger YES; Urine Blood TRACE (NEG); Urine Ketones NEG (NEG); Urine Protein TRACE MG/DL (NEG-TRACE)
[2020-11-18 15:34] LABS: UPreg QC Valid YES; Urine Pregnancy NEGATIVE (NEGATIVE)
[2020-11-18 15:38] LABS: Bacteria Urine 3+ /LPF; Squamous Epithelial Cell Urine 1+ /LPF
--- NOTE | 2020-11-18 15:49 | ED_ITS ---
HPI - Female Genitourinary General Chief complaint: Urogenital-Female Stated complaint: side pain, nausea Time Seen by Provider: 11/18/20 15:49 Source: patient Limitations: no limitations History of Present Illness HPI Narrative: Patient presents with a 2 day history of small filling urine and some right-sided flank pain. Patient has a history of UTIs in the past. Patient also has a history of kidney stones in the past. Patient states he only abdominal surgery she has had in the past as a tummy tuck. Patient states some slight nausea no vomiting at this time. Pain is aching in nature. Denies any vaginal discharge or other complaints at this time no fever chills shortness of breath headache. Related Data Home Medications Medication Instructions Recorded Confirmed clonazepam 1 mg tablet 1 mg PO DAILY PRN 12/13/19 07/10/20 zolpidem 10 mg tablet 10 mg PO BEDTIME PRN 12/13/19 07/10/20 cyanocobalamin (vitamin B-12) 1,000 mcg PO DAILY 07/10/20 07/10/20 1,000 mcg tablet divalproex 500 mg tablet,extended 1 tab PO BID 07/10/20 07/10/20 release 24 hr (Depakote ER) lurasidone 20 mg tablet (Latuda) 1 tab PO BEDTIME 07/10/20 07/10/20 multivitamin 1 tab PO DAILY 07/10/20 07/10/20 spironolactone 50 mg tablet 1 tab PO DAILY 07/10/20 07/10/20 Previous Rx's Medication Instructions Recorded fluticasone 500 mcg-salmeterol 50 1 inh INHALATION BID #60 ea 07/12/20 mcg/dose blistr powdr for inhalation (Advair Diskus) levalbuterol tartrate 45 2 puff INHALATION Q4-6H PRN #15 g 07/12/20 mcg/actuation aerosol inhaler metoprolol succinate 25 mg 12.5 mg PO BID #30 tab 07/12/20 tablet,extended release 24 hr montelukast 10 mg tablet 10 mg PO DAILY 30 Days #30 tab 07/15/20 nitrofurantoin 100 mg PO Q12H 7 Days #14 cap 08/03/20 monohydrate/macrocrystals 100 mg capsule (Macrobid) amoxicillin 875 mg-potassium 1 tab PO Q12H 7 Days #14 tab 08/04/21 clavulanate 125 mg tablet (Augmentin) nitrofurantoin 100 mg PO Q12H 5 Days #10 cap 11/18/20 monohydrate/macrocrystals 100 mg capsule (Macrobid) phenazopyridine 100 mg tablet 100 mg PO Q8H PRN #6 tab 11/18/20 (Pyridium) Allergies Allergy/AdvReac Type Severity Reaction Status Date / Time somatropin [SOMATROPIN] Allergy Unknown UNKNOWN Verified 07/15/20 15:26 amitriptyline [AMITRIPTYLINE] AdvReac Intermediate NAUSEA, Verified 07/15/20 15:26 DIZZINESS albuterol [ALBUTEROL] AdvReac Mild TACHYCARDIA Verified 07/15/20 15:26 esomeprazole [From NEXIUM] AdvReac Mild TACHYCARDIA Verified 07/15/20 15:26 Review of Systems Constitutional: Constitutional: Denies chills, Denies fatigue, Denies fever(s) and Denies weakness Eyes: Eyes: Denies diplopia Cardiovascular: Cardiovascular: Denies chest pain, Denies lightheadedness and Denies dyspnea Respiratory: Respiratory: Denies cough and Denies dyspnea Gastrointestinal: Gastrointestinal: Denies diarrhea, Reports nausea and Denies vomiting Genitourinary: Genitourinary: Reports dysuria and Reports urinary urgency Musculoskeletal: Musculoskeletal: Reports no additional musculoskeletal complaints Neurologic: Denies weakness Psychiatric: Psychiatric: Reports no additional psychiatric complaints Endocrine: Endocrine: Denies fatigue [facility] Past Medical History Attestation statement: The following information was validated with the patient. Medical History Asthma with COPD with exacerbation Bipolar 1 disorder Carpal tunnel syndrome COPD (chronic obstructive pulmonary disease) Diabetes mellitus Family history of COPD (chronic obstructive pulmonary disease) Fibromyalgia History of MRSA infection Inappropriate sinus node tachycardia Polycystic ovarian disease Postural orthostatic tachycardia syndrome POTS (postural orthostatic tachycardia syndrome) Schizoaffective disorder Subclinical hyperthyroidism SVT (supraventricular tachycardia) Surgical History History of tubal ligation Hx of abdominoplasty Family History Family History Other COPD (chronic obstructive pulmonary disease) Social History Social History Household Members: Family Housing: Condominium Do you presently have visiting nurse or other home services: No Alcohol intake: never Patient Tobacco Use Status: Never used Tobacco Second Hand Smoke Exposure: No Advance Directives: No Advance Directives Information Provided: Yes service: No Current occupational status: unemployed Physical Exam Vital Signs: Vital Signs: Last Vital Signs Temp 98.4 F 11/18/20 15:17 Pulse 82 11/18/20 15:17 Resp 20 11/18/20 15:17 BP 120/79 11/18/20 15:17 Pulse Ox 100 11/18/20 15:17 Body Mass Index 21.9 vital signs have been reviewed as normal and appeared to be correct. Blood pressure normal. Heart rate normal. Respiration rate normal. Temperature normal. Oxygen saturation normal. Appearance: Alert. Oriented X3. No acute distress. Head: Normal external exam. Normocephalic. Atraumatic. Eyes: PERRLA. EOMI ENT: Pharynx normal. Uvula midline. Moist mucous membranes. Neck: Soft full range of motion CVS: Heart regular rate and rhythm no murmurs and rubs Respiratory: Breath sounds are clear to auscultation bilaterally. No accessory muscle use noted. Abdomen: Soft nontender no rebound or guarding positive bowel sounds Back: No CVA tenderness. Full range of motion noted. Skin: Skin warm and dry. Normal skin color. Normal skin turgor. No rashes/lesions/lacerations noted. Extremities: No lower extremity edema. Extremities exhibit normal range of m otion. Extremities nontender. Neuro: Oriented X 3. No motor deficit. No sensory deficit. Reflexes normal. Course Course Course Narrative: UTI Pyelonephritis Right-sided flank pain Renal calculi less likely patient in no acute distress or exhibiting signs of pain at this time HCG is negative UA is pending UA shows signs of positive nitrates leuk esterase 2 white blood cells will treat his UTI at this time. Question early pyelonephritis patient is otherwise well- appearing with no active nausea vomiting. MDM - Female Genitourinary Lab Data Labs: Lab Results 11/18/20 11/18/20 Range/Units 15:24 15:24 Urine Color YELLOW Urine Appearance HAZY Urine pH 6.0 (5.0-8.0) Ur Specific [place] 1.025 (1.005-1.025) Urine Protein TRACE (NEG-TRACE) MG/DL Urine Glucose (UA) NEG (NEG) MG/DL Urine Ketones NEG (NEG) MG/DL Urine Blood TRACE (NEG) Urine Nitrite POS H (NEG) Ur Leukocyte Esterase 1+ H (NEG) Urine RBC 1-4 (0) /HPF Urine WBC 5-9 H (0-4) /HPF Ur Squamous Epith Cells 1+ /LPF Urine Bacteria 3+ /LPF Urine Test NEGATIVE (NEGATIVE) Discharge Plan Discharge Clinical Impression: UTI (urinary tract infection) Qualifiers: Urinary tract infection type: acute cystitis Hematuria presence: without hematuria Qualified Code(s): N30.00 - Acute cystitis without hematuria Patient Disposition: Home, Self-Care Instructions: Urinary Tract Infection in Women (ED) Additional Instructions: Increase fluids rest follow-up PCP as needed Prescriptions: New nitrofurantoin monohyd/m-cryst [Macrobid] 100 mg capsule 100 mg PO Q12H 5 Days Qty: 10 RF: 0 phenazopyridine [Pyridium] 100 mg tablet 100 mg PO Q8H PRN (Reason: pain) Qty: 6 RF: 0 No Action clonazepam 1 mg tablet 1 mg PO DAILY PRN (Reason: Anxiety) RF: 0 zolpidem 10 mg tablet 10 mg PO BEDTIME PRN (Reason: insomnia) RF: 0 divalproex [Depakote ER] 500 mg tablet extended release 24 hr 1 tab PO BID RF: 0 spironolactone 50 mg tablet 1 tab PO DAILY RF: 0 Latuda 20 mg tablet 1 tab PO BEDTIME RF: 0 multivitamin Tablet 1 tab PO DAILY RF: 0 cyanocobalamin (vitamin B-12) 1,000 mcg Tablet 1,000 mcg PO DAILY RF: 0 levalbuterol tartrate 45 mcg/actuation HFA aerosol inhaler 2 puff inhalation Q4-6H PRN (Reason: shortness of breath or wheezing) Qty: 15 RF: 0 fluticasone propion-salmeterol [Advair Diskus] 500-50 mcg/dose blister with device 1 inh inhalation BID Qty: 60 RF: 0 metoprolol succinate 25 mg tablet extended release 24 hr 12.5 mg PO BID Qty: 30 RF: 0 nitrofurantoin monohyd/m-cryst [Macrobid] 100 mg capsule 100 mg PO Q12H 7 Days Qty: 14 RF: 0 amoxicillin-pot clavulanate [Augmentin] 875-125 mg tablet 1 tab PO Q12H 7 Days Qty: 14 RF: 0 montelukast 10 mg tablet 10 mg PO DAILY 30 Days Qty: 30 RF: 5
== END 2020-11-18 17:06 | disposition home or self-care (01) ==
PROVIDERS: Emergency Provider Emergency Medicine Emergency Medical Services
DX: N30.00 Acute cystitis without hematuria (principal); R11.2 Nausea with vomiting, unspecified; Z79.899 Other long term (current) drug therapy
CPT/HCPCS: 81001; 81025; 87086; 87088; 87186; 99283; 99284

== ENCOUNTER 2020-11-19 21:09 | Emergency (ER) | payer OTHER, SELFPAY ==
--- NOTE | ~2020-11-19 | XR_ITS ---
EXAMINATION: XR CHEST CLINICAL INFORMATION: Right lower chest wall tenderness COMPARISON: 09/22/2020 TECHNIQUE: 2 views of the chest were obtained. FINDINGS: The lungs are well expanded. There is no focal consolidation, edema, or effusion. No pneumothorax. The cardiomediastinal silhouette is within normal limits. No acute osseous abnormality. XR/XR chest 2V IMPRESSION: Clear lungs.
--- NOTE | ~2020-11-19 | CT_ITS ---
EXAMINATION: CT ABDOMEN AND PELVIS WITH CONTRAST CLINICAL INFORMATION: Right upper quadrant/flank pain. Rule out renal colic. COMPARISON: 08/03/2020 TECHNIQUE: Multidetector volumetric images were obtained from the superior aspect of the liver through the pubic symphysis following administration of 70 mL of Omnipaque 350 intravenous contrast. Sagittal and coronal reformatted images were obtained on the technologist's workstation. Oral contrast: No This CT examination was performed using dose optimization techniques as appropriate, variously including the following: *Automated exposure control *Adjustment of mA and/or kV according to patient size (this includes techniques or standardized protocols for targeted exams where dose is matched to indication/reason for exam; i.e. extremities or head) *Use of iterative reconstruction technique DLP: 376 mGy-cm FINDINGS: LUNG BASES: The visualized lung bases are unremarkable. LIVER, GALLBLADDER, AND BILIARY TREE: The liver is normal in size, shape, and attenuation. No focal hepatic lesion or biliary ductal dilatation is present. The gallbladder is unremarkable with no evidence of radiopaque gallstones, gallbladder wall thickening, or obvious pericholecystic inflammatory changes. PANCREAS: Unremarkable. SPLEEN: Unremarkable. ADRENAL GLANDS: Unremarkable. KIDNEYS AND URETERS: The kidneys are normal in size, shape, and attenuation. No hydronephrosis, hydroureter, or calculi seen. No perinephric stranding. BLADDER: Unremarkable. GASTROINTESTINAL TRACT: The small and large bowel are unremarkable. The appendix is unremarkable. ABDOMINAL WALL: No significant hernia is appreciated. LYMPH NODES: Normal. VASCULAR: Unremarkable. PELVIC VISCERA: Anteverted uterus. No adnexal mass. Small volume of pelvic free fluid noted. OSSEOUS STRUCTURES: No acute or suspicious osseous abnormality. CT/CT abdomen pelvis w con IMPRESSION: No acute findings in the abdomen or pelvis. No inflammatory change. Normal appendix. No hydronephrosis or nephrolithiasis. There is a small volume of pelvic free fluid which is likely physiologic.
[2020-11-19 21:39] VITALS: BP 138/82; PULSE 97; RESP 18; TEMP 37.3; O2SAT 96; BMI 21.9
[2020-11-19 22:09] LABS: MANUAL DIFF FLAG NO
[2020-11-19 22:10] LABS: Basophils Absolute Auto 0.1 X10*3/uL (0.0-0.2); Basophils Percent Auto 0.6 % (0-2); Eosinophils Absolute Auto 0.2 X10*3/uL (0.0-0.4); Eosinophils Percent Auto 1.1 % (0-4); Hematocrit 42.2 % (37-47); Hemoglobin 14.2 g/dl (12.0-16.0); Imm Gran Abs Auto 0.07 X10*3/uL (0.00-0.03); Imm Gran Pct Auto 0.4 % (0.0-0.4); Lymphocytes Absolute Auto 1.8 X10*3/uL (1.2-4.9); Mean Corpuscular HGB Conc 33.6 g/dl (31.0-35.0); Mean Corpuscular Hemoglobin 29.5 pg (27.0-33.0); Mean Corpuscular Volume 87.7 fL (80-98); Mean Platelet Volume 10.1 fL (9.4-12.3); Monocytes Percent Auto 5.5 % (2-11); Neutrophils Absolute Auto 14.9 X10*3/uL (2.0-8.3); Neutrophils Percent Auto 82.4 % (45-73); Platelet Count 335 X10*3/uL (160-400); Red Blood Count 4.81 X10*6/uL (4.20-5.50); Red Cell Distribution Width 12.6 % (11.0-16.0); White Blood Count 18.1 X10*3/uL (4.8-10.8)
[2020-11-19 22:15] LABS: Appearance Urine HAZY; Color Urine YELLOW; Glucose Urine UA NEG (NEG); Leukocyte Esterase Urine 3+ (NEG); Nitrite Urine NEG (NEG); PH 5.5 (5.0-8.0); Specific Gravity - Urine >= 1.030 (1.005-1.025); UACC Culture Trigger YES; Urine Blood 2+ (NEG); Urine Ketones NEG (NEG); Urine Pregnancy NEGATIVE (NEGATIVE); Urine Protein 1+ MG/DL (NEG-TRACE)
[2020-11-19 22:16] LABS: UPreg QC Valid YES
[2020-11-19 22:21] LABS: WBC Urine TNTC /HPF (0-4)
[2020-11-19 22:22] LABS: Amorphous Sediment Urine 1+ /LPF; Bacteria Urine 2+ /LPF; Squamous Epithelial Cell Urine TRACE /LPF
[2020-11-19 22:23] LABS: Mucus Urine TRACE /LPF
[2020-11-19 22:33] LABS: Alanine Aminotransferase 10 U/L (0-31); Albumin Level 4.3 g/dL (3.5-5.0); Alkaline Phosphatase 70 U/L (39-117); Anion Gap 15 (12-20); Aspartate Amino Transferase 17 U/L (5-31); Bilirubin Total 0.3 mg/dL (0.0-1.0); Blood Urea Nitrogen 10 mg/dL (9-16); Calcium 9.4 mg/dL (8.4-10.2); Carbon Dioxide 23 mmol/L (22-29); Chloride 106 mmol/L (96-108); Creatinine Clr Calc Pharmacy 67.6; Estimated Glomerular Filt Rate > 60; Glucose Random 133 mg/dL (60-115); Sodium 140 mmol/L (135-145); Total Protein 7.6 g/dL (6.5-8.0)
[2020-11-20] MEDS: 0.9 % Sodium Chloride 1,000 ML 999 ML IV (01:27)
[2020-11-20] MEDS: Ketorolac Tromethamine 15 MG/ML VIAL IVPUSH (01:28)
--- NOTE | 2020-11-20 01:32 | ED_ITS ---
HPI - General Adult General Chief complaint: General Medical Stated complaint: Intense Kidney Pain, PT was here recently Time Seen by Provider: 11/20/20 00:51 Source: patient Mode of arrival: ambulatory History of Present Illness HPI narrative: 35-year-old female with extensive past history of renal stones presents with having been evaluated yesterday and diagnosed with renal colic and sent out with medications, but patient states that over the course the day she has had worsening chills and subjective fevers with nausea and increasing right flank pain that is sharp and constant. She denies otherwise any diarrhea or urinary pain or burning and states that she has had a tubal ligation. She has seen Dr. Murillo in the past. Related Data Home Medications Medication Instructions Recorded Confirmed clonazepam 1 mg tablet 1 mg PO DAILY PRN 12/13/19 07/10/20 zolpidem 10 mg tablet 10 mg PO BEDTIME PRN 12/13/19 07/10/20 cyanocobalamin (vitamin B-12) 1,000 mcg PO DAILY 07/10/20 07/10/20 1,000 mcg tablet divalproex 500 mg tablet,extended 1 tab PO BID 07/10/20 07/10/20 release 24 hr (Depakote ER) lurasidone 20 mg tablet (Latuda) 1 tab PO BEDTIME 07/10/20 07/10/20 multivitamin 1 tab PO DAILY 07/10/20 07/10/20 spironolactone 50 mg tablet 1 tab PO DAILY 07/10/20 07/10/20 Previous Rx's Medication Instructions Recorded fluticasone 500 mcg-salmeterol 50 1 inh INHALATION BID #60 ea 07/12/20 mcg/dose blistr powdr for inhalation (Advair Diskus) levalbuterol tartrate 45 2 puff INHALATION Q4-6H PRN #15 g 07/12/20 mcg/actuation aerosol inhaler metoprolol succinate 25 mg 12.5 mg PO BID #30 tab 07/12/20 tablet,extended release 24 hr montelukast 10 mg tablet 10 mg PO DAILY 30 Days #30 tab 07/15/20 nitrofurantoin 100 mg PO Q12H 7 Days #14 cap 08/03/20 monohydrate/macrocrystals 100 mg capsule (Macrobid) amoxicillin 875 mg-potassium 1 tab PO Q12H 7 Days #14 tab 09/23/20 clavulanate 125 mg tablet (Augmentin) nitrofurantoin 100 mg PO Q12H 5 Days #10 cap 11/18/20 monohydrate/macrocrystals 100 mg capsule (Macrobid) phenazopyridine 100 mg tablet 100 mg PO Q8H PRN #6 tab 11/18/20 (Pyridium) cefixime 400 mg capsule 400 mg PO DAILY 7 Days #7 cap 11/20/20 Allergies Allergy/AdvReac Type Severity Reaction Status Date / Time somatropin [SOMATROPIN] Allergy Unknown UNKNOWN Verified 11/19/20 21:39 amitriptyline [AMITRIPTYLINE] AdvReac Intermediate NAUSEA, Verified 11/19/20 21:39 DIZZINESS albuterol [ALBUTEROL] AdvReac Mild TACHYCARDIA Verified 11/19/20 21:39 esomeprazole [From NEXIUM] AdvReac Mild TACHYCARDIA Verified 11/19/20 21:39 Review of Systems Review of Systems: Pertinent positives and negatives as stated in HPI 10 point review of systems is otherwise negative. [facility] Past Medical History Source: nursing notes reviewed Medical History Asthma with COPD with exacerbation Bipolar 1 disorder Carpal tunnel syndrome COPD (chronic obstructive pulmonary disease) Diabetes mellitus Family history of COPD (chronic obstructive pulmonary disease) Fibromyalgia History of MRSA infection Inappropriate sinus node tachycardia Kidney stones Polycystic ovarian disease Postural orthostatic tachycardia syndrome POTS (postural orthostatic tachycardia syndrome) Schizoaffective disorder Subclinical hyperthyroidism SVT (supraventricular tachycardia) UTI (urinary tract infection) Surgical History History of renal stent History of tubal ligation Hx of abdominoplasty Hx of lithotripsy Tubal ligation status Family History Family History Other COPD (chronic obstructive pulmonary disease) Social History Social History Household Members: Family Housing: Condominium Do you presently have visiting nurse or other home services: No Alcohol intake: never Patient Tobacco Use Status: Never used Tobacco Second Hand Smoke Exposure: No Advance Directives: No Advance Directives Information Provided: Yes Patient : No service: No Current occupational status: unemployed Physical Exam Vital Signs: Vital Signs: Last Vital Signs Temp 99.1 F 11/19/20 21:39 Pulse 97 11/19/20 21:39 Resp 18 11/19/20 21:39 BP 138/82 11/19/20 21:39 Pulse Ox 96 11/19/20 21:39 Body Mass Index 21.9 VITAL SIGNS: Reviewed. GENERAL: Well developed, well nourished, in no acute distress. HEAD: Normocephalic/atraumatic EYES: PERRLA, EOMI EARS: Ext canals without abnormality NOSE: Nares patent bilateral OROPHARYNX: no oral lesions noted, posterior pharynx clear NECK: Supple, no adenopathy LUNGS: Normal breath sounds. No adventitious sounds or accessory muscle use. SpO2<96> CARDIOVASCULAR: Regular rate and rhythm without noted murmurs ABDOMEN: Soft, mild tenderness on palpation without rebound non-distended with bowel sounds, right-sided CVA tenderness SKIN: Inspection of the skin reveals no rashes NEUROLOGIC: Alert and oriented x 4. Strength and sensation to light touch were grossly intact x 4. Course Course Course Narrative: 35-year-old female with history and clinical presentation consistent with right upper quadrant/flank pain suspicious for possible pyelo versus renal colic. On review of all investigations findings most consistent with pyelonephritis. Patient received fluids, pain medication, as well as initial antibiotics here in the emergency room and was noted to tolerate oral intake and on re-evaluation was feeling somewhat better. She will be discharged with remaining course of antibiotics to cover a pyelonephritis. Medical Decision Making Lab Data Result diagrams: 11/19/20 21:59 11/19/20 21:59 Labs: Lab Results 11/19/20 11/19/20 11/19/20 Range/Units 21:59 21:59 21:59 WBC 18.1 H (4.8-10.8) X10*3/uL RBC 4.81 (4.20-5.50) X10*6/uL Hgb 14.2 (12.0-16.0) g/dl Hct 42.2 (37-47) % MCV 87.7 (80-98) fL MCH 29.5 (27.0-33.0) pg MCHC 33.6 (31.0-35.0) g/dl RDW 12.6 (11.0-16.0) % Plt Count 335 (160-400) X10*3/uL MPV 10.1 (9.4-12.3) fL Immature Gran % (Auto) 0.4 (0.0-0.4) % Neut % (Auto) 82.4 H (45-73) % Lymph % (Auto) 10.0 L (20-40) % [place] % (Auto) 5.5 (2-11) % Eos % (Auto) 1.1 (0-4) % Baso % (Auto) 0.6 (0-2) % Lymph # (Auto) 1.8 (1.2-4.9) X10*3/uL [place] # (Auto) 1.0 (0.1-1.2) X10*3/uL Eos # (Auto) 0.2 (0.0-0.4) X10*3/uL Baso # (Auto) 0.1 (0.0-0.2) X10*3/uL Abs Immat Gran (auto) 0.07 H (0.00-0.03) X10*3/uL Absolute Neuts (auto) 14.9 H (2.0-8.3) X10*3/uL Absolute Nucleated RBC 0.000 (0.0-0.012) X10*3/uL Nucleated RBC % (auto) 0.0 (0.0-0.2) /100WBC Sodium 140 (135-145) mmol/L Potassium 4.0 (3.3-5.1) mmol/L Chloride 106 (96-108) mmol/L Carbon Dioxide 23 (22-29) mmol/L Anion Gap 15 (12-20) BUN 10 (9-16) mg/dL Creatinine 0.85 (0.5-1.4) mg/dL Estim Creat Clear Calc 67.6 Estimated GFR > 60 Random Glucose 133 H (60-115) mg/dL Lactic Acid (0.5-2.0) mmol/L Calcium 9.4 D (8.4-10.2) mg/dL Total Bilirubin 0.3 (0.0-1.0) mg/dL AST 17 (5-31) U/L ALT 10 (0-31) U/L Alkaline Phosphatase 70 (39-117) U/L Total Protein 7.6 (6.5-8.0) g/dL Albumin 4.3 (3.5-5.0) g/dL Urine Color YELLOW Urine Appearance HAZY Urine pH 5.5 (5.0-8.0) Ur Specific [place] >= 1.030 H (1.005-1.025) Urine Protein 1+ H (NEG-TRACE) MG/DL Urine Glucose (UA) NEG (NEG) MG/DL Urine Ketones NEG (NEG) MG/DL Urine Blood 2+ H (NEG) Urine Nitrite NEG (NEG) Ur Leukocyte Esterase 3+ H (NEG) Urine RBC 5-9 H (0) /HPF Urine WBC TNTC H (0-4) /HPF Ur Squamous Epith Cells TRACE /LPF Amorphous Sediment 1+ /LPF Urine Bacteria 2+ /LPF Urine Mucus TRACE /LPF Urine Test (NEGATIVE) 11/19/20 11/20/20 Range/Units 21:59 01:21 WBC (4.8-10.8) X10*3/uL RBC (4.20-5.50) X10*6/uL Hgb (12.0-16.0) g/dl Hct (37-47) % MCV (80-98) fL MCH (27.0-33.0) pg MCHC (31.0-35.0) g/dl RDW (11.0-16.0) % Plt Count (160-400) X10*3/uL MPV (9.4-12.3) fL Immature Gran % (Auto) (0.0-0.4) % Neut % (Auto) (45-73) % Lymph % (Auto) (20-40) % [place] % (Auto) (2-11) % Eos % (Auto) (0-4) % Baso % (Auto) (0-2) % Lymph # (Auto) (1.2-4.9) X10*3/uL [place] # (Auto) (0.1-1.2) X10*3/uL Eos # (Auto) (0.0-0.4) X10*3/uL Baso # (Auto) (0.0-0.2) X10*3/uL Abs Immat Gran (auto) (0.00-0.03) X10*3/uL Absolute Neuts (auto) (2.0-8.3) X10*3/uL Absolute Nucleated RBC (0.0-0.012) X10*3/uL Nucleated RBC % (auto) (0.0-0.2) /100WBC Sodium (135-145) mmol/L Potassium (3.3-5.1) mmol/L Chloride (96-108) mmol/L Carbon Dioxide (22-29) mmol/L Anion Gap (12-20) BUN (9-16) mg/dL Creatinine (0.5-1.4) mg/dL Estim Creat Clear Calc Estimated GFR Random Glucose (60-115) mg/dL Lactic Acid 1.1 (0.5-2.0) mmol/L Calcium (8.4-10.2) mg/dL Total Bilirubin (0.0-1.0) mg/dL AST (5-31) U/L ALT (0-31) U/L Alkaline Phosphatase (39-117) U/L Total Protein (6.5-8.0) g/dL Albumin (3.5-5.0) g/dL Urine Color Urine Appearance Urine pH (5.0-8.0) Ur Specific [place] (1.005-1.025) Urine Protein (NEG-TRACE) MG/DL Urine Glucose (UA) (NEG) MG/DL Urine Ketones (NEG) MG/DL Urine Blood (NEG) Urine Nitrite (NEG) Ur Leukocyte Esterase (NEG) Urine RBC (0) /HPF Urine WBC (0-4) /HPF Ur Squamous Epith Cells /LPF Amorphous Sediment /LPF Urine Bacteria /LPF Urine Mucus /LPF Urine Test NEGATIVE (NEGATIVE) Discharge Plan Discharge Clinical Impression: Pyelonephritis Patient Disposition: Home, Self-Care Instructions: Ketorolac (By mouth), Kidney Infection (ED) Additional Instructions: 1. Tylenol 1000 mg, orally, every 6 hours as needed for pain control. Do not exceed 4000 mg within 24 hours. 2. Ibuprofen 400 mg, orally with milk or food, every 6 hours as needed for pain control. 3. Follow-up with your primary care provider in the morning to set up an appointment for re-evaluation. 4. You have been provided with a new antibiotic and you should stop taking the Macrobid (nitrofurantoin). 5. Continue to drink plenty of water. Return to the ER for acute worsening of your symptoms. Prescriptions: New cefixime 400 mg capsule 400 mg PO DAILY 7 Days Qty: 7 RF: 0 No Action clonazepam 1 mg tablet 1 mg PO DAILY PRN (Reason: Anxiety) RF: 0 zolpidem 10 mg tablet 10 mg PO BEDTIME PRN (Reason: insomnia) RF: 0 divalproex [Depakote ER] 500 mg tablet extended release 24 hr 1 tab PO BID RF: 0 spironolactone 50 mg tablet 1 tab PO DAILY RF: 0 Latuda 20 mg tablet 1 tab PO BEDTIME RF: 0 multivitamin Tablet 1 tab PO DAILY RF: 0 cyanocobalamin (vitamin B-12) 1,000 mcg Tablet 1,000 mcg PO DAILY RF: 0 levalbuterol tartrate 45 mcg/actuation HFA aerosol inhaler 2 puff inhalation Q4-6H PRN (Reason: shortness of breath or wheezing) Qty: 15 RF: 0 fluticasone propion-salmeterol [Advair Diskus] 500-50 mcg/dose blister with device 1 inh inhalation BID Qty: 60 RF: 0 metoprolol succinate 25 mg tablet extended release 24 hr 12.5 mg PO BID Qty: 30 RF: 0 nitrofurantoin monohyd/m-cryst [Macrobid] 100 mg capsule 100 mg PO Q12H 7 Days Qty: 14 RF: 0 amoxicillin-pot clavulanate [Augmentin] 875-125 mg tablet 1 tab PO Q12H 7 Days Qty: 14 RF: 0 nitrofurantoin monohyd/m-cryst [Macrobid] 100 mg capsule 100 mg PO Q12H 5 Days Qty: 10 RF: 0 phenazopyridine [Pyridium] 100 mg tablet 100 mg PO Q8H PRN (Reason: pain) Qty: 6 RF: 0 montelukast 10 mg tablet 10 mg PO DAILY 30 Days Qty: 30 RF: 5 Referrals: Physician,Nonstaff [Primary Care Provider] - 2 days Print Language: Indonesian
[2020-11-20] MEDS: iohexoL 350 MG/ML 100 ML INFUS..BTL 70 ML IV (01:42)
[2020-11-20] MEDS: cefTRIAXone sodium 1 GM in 0.9 % Sodium Chloride 50 ML IV (01:42)
[2020-11-20 01:44] LABS: Lactic Acid 1.1 mmol/L (0.5-2.0)
--- NOTE | 2020-11-20 01:54 | PC.NURSE ---
PT CRYING OUT IN PAIN, THIS RN IN ROOM STARTING IV, DRAWING LABS AND WALKED OUT OF ROOM TO SEND LABS AND OBTAIN MEDICATIONS FROM [facility]. WHEN I ENTERED PT'S ROOM WITH MEDICATIONS IN HAND PT STARTED SCREAMING AT ME HOW LONG DOES IT TAKE FOR ME TO GET PAIN MEDICATION, YOU ARE JUST WALKING AROUND, BACK AND FORTH. YOU ARE WALKING AROUND SLOW TO GO HERE AND THERE. CAN'T YOU SEE I'M IN PAIN. I EXPLAINED TO PT THAT MEDICATIONS MUST BE SCANNED TO ENSURE THEY ARE THE CORRECT MEDICATION. PT WOULD NOT LISTEN AND CONTINUED TO SCREAM AT ME. PT WENT TO CT SCAN AFTER RECEIVING TORADOL. PT RETURNED AND WAS ASSISTED WITH [facility]IMES. PT REPORTS THAT SHE WAS IN TOO MUCH PAIN TO WALK. ANOTHER RN SENT INTO ROOM TO HAND ANTIBIOTICS. PT NOW ON CELL PHONE TALKING VERY LOUDLY.
--- NOTE | 2020-11-20 03:08 | PC.NURSE ---
WANTS PT TO DRINK CLEAR FLUIDS, P.O. [facility]ALLENGE.
[2020-11-20 03:20] VITALS: BP 118/68; PULSE 68; RESP 16; O2SAT 97
== END 2020-11-20 03:22 | disposition home or self-care (01) ==
PROVIDERS: Emergency Provider Student in an Organized Health Care Education/Training Program
DX: N10 Acute pyelonephritis (principal); R10.11 Right upper quadrant pain; Z79.899 Other long term (current) drug therapy
CPT/HCPCS: 36415; 71046; 74177; 80053; 81001; 81025; 83605; 85025; 87040; 87077; 87186; 87205; 96365; 96375; 99284; J0696; J1885; Q9967

== ENCOUNTER 2020-11-20 14:13 | Emergency (ER) | payer OTHER, SELFPAY ==
[2020-11-20 14:24] VITALS: BP 125/77; PULSE 81; RESP 16; TEMP 36.3; O2SAT 98; BMI 48.2
--- NOTE | 2020-11-20 15:02 | ED_ITS ---
HPI - Abdominal Pain General Chief Complaint: Abdominal Pain Stated Complaint: flank pain Time Seen by Provider: 11/20/20 14:35 Source: patient Mode of arrival: ambulatory Limitations: no limitations History of Present Illness HPI narrative: 35 yo female presenting wtih kidney pain in the setting of recently diagnosed pyelonephritis. She was seen here last night - treated with pain meds, abx and IVF. She was discharged on PO abx and motrin/tylenol for pain. She reports compliance with both alternating motrin and tylenol however her right sided flank pain is continuing. She is nauseated but not vomiting. No fevers today. She is here asking for something stronger for her pain. MD elicited complaint: flank pain Pertinent past history: other (pyelo) Onset (ago): day(s) Location: R flank Severity: severe Quality: aching and fullness Radiation: RUQ Migration to: no migration Exacerbating factors: nothing Relieving factors: nothing Context: history of similar episodes Associated symptoms: nausea Treatments prior to arrival: NSAIDs Related Data Home Medications Medication Instructions Recorded Confirmed clonazepam 1 mg tablet 1 mg PO DAILY PRN 12/13/19 07/10/20 zolpidem 10 mg tablet 10 mg PO BEDTIME PRN 12/13/19 07/10/20 cyanocobalamin (vitamin B-12) 1,000 mcg PO DAILY 07/10/20 07/10/20 1,000 mcg tablet divalproex 500 mg tablet,extended 1 tab PO BID 07/10/20 07/10/20 release 24 hr (Depakote ER) lurasidone 20 mg tablet (Latuda) 1 tab PO BEDTIME 07/10/20 07/10/20 multivitamin 1 tab PO DAILY 07/10/20 07/10/20 spironolactone 50 mg tablet 1 tab PO DAILY 07/10/20 07/10/20 Previous Rx's Medication Instructions Recorded fluticasone 500 mcg-salmeterol 50 1 inh INHALATION BID #60 ea 07/12/20 mcg/dose blistr powdr for inhalation (Advair Diskus) levalbuterol tartrate 45 2 puff INHALATION Q4-6H PRN #15 g 07/12/20 mcg/actuation aerosol inhaler metoprolol succinate 25 mg 12.5 mg PO BID #30 tab 07/12/20 tablet,extended release 24 hr montelukast 10 mg tablet 10 mg PO DAILY 30 Days #30 tab 07/15/20 nitrofurantoin 100 mg PO Q12H 7 Days #14 cap 08/03/20 monohydrate/macrocrystals 100 mg capsule (Macrobid) amoxicillin 875 mg-potassium 1 tab PO Q12H 7 Days #14 tab 09/23/20 clavulanate 125 mg tablet (Augmentin) nitrofurantoin 100 mg PO Q12H 5 Days #10 cap 11/18/20 monohydrate/macrocrystals 100 mg capsule (Macrobid) phenazopyridine 100 mg tablet 100 mg PO Q8H PRN #6 tab 11/18/20 (Pyridium) cefixime 400 mg capsule 400 mg PO DAILY 7 Days #7 cap 11/20/20 ondansetron 4 mg disintegrating 4 mg PO Q8H PRN #10 tab 11/20/20 tablet oxycodone 5 mg tablet 5 mg PO Q6H PRN #7 tab 11/20/20 Allergies Allergy/AdvReac Type Severity Reaction Status Date / Time somatropin [SOMATROPIN] Allergy Unknown UNKNOWN Verified 11/19/20 21:39 amitriptyline [AMITRIPTYLINE] AdvReac Intermediate NAUSEA, Verified 11/19/20 21:39 DIZZINESS albuterol [ALBUTEROL] AdvReac Mild TACHYCARDIA Verified 11/19/20 21:39 esomeprazole [From NEXIUM] AdvReac Mild TACHYCARDIA Verified 11/19/20 21:39 Review of Systems Review of Systems Constitutional: No Fever, No Chills ENT/Mouth: No sore throat, No Rhinorrhea, No Swallowing Difficulty Cardiovascular: No Chest Pain, No SOB Respiratory: No Cough, No Sputum, No Wheezing, No dyspnea Gastrointestinal: + Nausea, No Vomiting, No Diarrhea, + abdominal Pain Genitourinary: No Dysuria, No Urinary Frequency, No Hematuria Musculoskeletal: No joint pain, No Myalgias Skin: No Skin Lesions, No rash Neuro: + Weakness, No Numbness, No Dizziness, No Headache Psych: + Anxiety/Panic Heme/Lymph: No Bruising, No Lymphadenopathy Endocrine: No Polyuria, No Polydipsia Physical Exam Vital Signs: Vital Signs: Last Vital Signs Temp 97.3 F 11/20/20 14:24 Pulse 81 11/20/20 14:24 Resp 16 11/20/20 14:24 BP 125/77 11/20/20 14:24 Pulse Ox 98 11/20/20 14:24 Body Mass Index 48.2 Appearance: Alert. Oriented X3. No acute distress. Eyes: Pupils equal, round and reactive to light. ENT: Pharynx normal. Neck: Normal inspection. Neck supple. CVS: Normal heart rate and rhythm. Pulses normal. Respiratory: No respiratory distress. Breath sounds normal. Abdomen: Soft with right sided abdominal tenderness, +CVA tenderness on the right. no rebound or guarding. +BS x4 Skin: Skin warm and dry. Normal skin color. Normal skin turgor. No rashes. Extremities: No lower extremity edema. Neuro: Oriented X 3. No motor deficit. No sensory deficit. Course Course Course Narrative: 35 yo female presenting with right sided flank pain in the setting of pyelo despite abx, nsaid and tylenol. Her VS are normal. Does not appear to be septic. She is tolerating PO and taking her meds as prescribed. She called Dr. Vela for follow up appointment today. Will give short course of pain medication for severe pain until abx take full effect. She agrees to continue motrin and tylenol and will follow up with Dr. Vela. Stable for d/c home, patient agrees with plan. Discharge Plan Discharge Clinical Impression: Pyelonephritis Patient Disposition: Home, Self-Care Instructions: Kidney Infection (ED) Additional Instructions: Continue taking Tylenol and Motrin for pain. If you develop new or worsening symptoms call 911 or come back to the ER for further evaluation. Prescriptions: New oxycodone 5 mg tablet 5 mg PO Q6H PRN (Reason: pain) Qty: 7 RF: 0 ondansetron 4 mg tablet,disintegrating 4 mg PO Q8H PRN (Reason: nausea and vomiting) Qty: 10 RF: 0 No Action clonazepam 1 mg tablet 1 mg PO DAILY PRN (Reason: Anxiety) RF: 0 zolpidem 10 mg tablet 10 mg PO BEDTIME PRN (Reason: insomnia) RF: 0 divalproex [Depakote ER] 500 mg tablet extended release 24 hr 1 tab PO BID RF: 0 spironolactone 50 mg tablet 1 tab PO DAILY RF: 0 Latuda 20 mg tablet 1 tab PO BEDTIME RF: 0 multivitamin Tablet 1 tab PO DAILY RF: 0 cyanocobalamin (vitamin B-12) 1,000 mcg Tablet 1,000 mcg PO DAILY RF: 0 levalbuterol tartrate 45 mcg/actuation HFA aerosol inhaler 2 puff inhalation Q4-6H PRN (Reason: shortness of breath or wheezing) Qty: 15 RF: 0 fluticasone propion-salmeterol [Advair Diskus] 500-50 mcg/dose blister with device 1 inh inhalation BID Qty: 60 RF: 0 metoprolol succinate 25 mg tablet extended release 24 hr 12.5 mg PO BID Qty: 30 RF: 0 nitrofurantoin monohyd/m-cryst [Macrobid] 100 mg capsule 100 mg PO Q12H 7 Days Qty: 14 RF: 0 amoxicillin-pot clavulanate [Augmentin] 875-125 mg tablet 1 tab PO Q12H 7 Days Qty: 14 RF: 0 nitrofurantoin monohyd/m-cryst [Macrobid] 100 mg capsule 100 mg PO Q12H 5 Days Qty: 10 RF: 0 phenazopyridine [Pyridium] 100 mg tablet 100 mg PO Q8H PRN (Reason: pain) Qty: 6 RF: 0 cefixime 400 mg capsule 400 mg PO DAILY 7 Days Qty: 7 RF: 0 montelukast 10 mg tablet 10 mg PO DAILY 30 Days Qty: 30 RF: 5 Referrals: Mckay Vela MD [Physician] - 1 week (recurrent pyelo) [facility] Past Medical History Medical History Asthma with COPD with exacerbation Bipolar 1 disorder Carpal tunnel syndrome COPD (chronic obstructive pulmonary disease) Diabetes mellitus Family history of COPD (chronic obstructive pulmonary disease) Fibromyalgia History of MRSA infection Inappropriate sinus node tachycardia Kidney stones Polycystic ovarian disease Postural orthostatic tachycardia syndrome POTS (postural orthostatic tachycardia syndrome) Schizoaffective disorder Subclinical hyperthyroidism SVT (supraventricular tachycardia) UTI (urinary tract infection) Surgical History History of renal stent History of tubal ligation Hx of abdominoplasty Hx of lithotripsy Tubal ligation status Family History Family History Other COPD (chronic obstructive pulmonary disease) Social History Social History Household Members: Family Housing: Condominium Do you presently have visiting nurse or other home services: No Alcohol intake: never Patient Tobacco Use Status: Never used Tobacco Second Hand Smoke Exposure: No Advance Directives: No Advance Directives Information Provided: No service: No Current occupational status: unemployed
== END 2020-11-20 15:06 | disposition home or self-care (01) ==
PROVIDERS: Emergency Provider Internal Medicine
DX: N12 Tubulo-interstitial nephritis, not specified as acute or chronic (principal); R10.9 Unspecified abdominal pain; R11.2 Nausea with vomiting, unspecified; Z79.899 Other long term (current) drug therapy
CPT/HCPCS: 99283

== ENCOUNTER 2020-11-24 23:06 | Inpatient (IN) | payer OTHER, SELFPAY ==
--- NOTE | ~2020-11-24 | CT_ITS ---
EXAMINATION: CT ABDOMEN AND PELVIS WITH CONTRAST CLINICAL INFORMATION: Right flank pain. Bacteremia. COMPARISON: 11/20/2020 TECHNIQUE: Multidetector volumetric images were obtained from the superior aspect of the liver through the pubic symphysis following administration 85 mL of Omnipaque 350 intravenous contrast. Sagittal and coronal reformatted images were obtained on the technologist's workstation. Oral contrast: No This CT examination was performed using dose optimization techniques as appropriate, variously including the following: *Automated exposure control *Adjustment of mA and/or kV according to patient size (this includes techniques or standardized protocols for targeted exams where dose is matched to indication/reason for exam; i.e. extremities or head) *Use of iterative reconstruction technique DLP: 377 mGy-cm FINDINGS: LUNG BASES: The visualized lung bases are unremarkable. LIVER, GALLBLADDER, AND BILIARY TREE: The liver is normal in size, shape, and attenuation. No focal hepatic lesion or biliary ductal dilatation is present. The gallbladder is unremarkable with no evidence of radiopaque gallstones, gallbladder wall thickening, or obvious pericholecystic inflammatory changes. PANCREAS: Unremarkable. SPLEEN: Unremarkable. ADRENAL GLANDS: Unremarkable. KIDNEYS AND URETERS: The kidneys are normal in size, shape, and attenuation. No hydronephrosis, hydroureter, or calculi seen. No perinephric stranding. BLADDER: Unremarkable. GASTROINTESTINAL TRACT: The stomach is unremarkable. Normal caliber small bowel. No obstruction. No colonic wall thickening or acute inflammatory change. Normal appendix. No free air or free fluid. ABDOMINAL WALL: No significant hernia is appreciated. LYMPH NODES: Normal. VASCULAR: Unremarkable. PELVIC VISCERA: The uterus and adnexa are unremarkable. OSSEOUS STRUCTURES: No acute or suspicious osseous abnormality. CT/CT abdomen pelvis w con IMPRESSION: No acute findings in the abdomen or pelvis. No inflammatory changes. Normal appearance of the kidneys.
[2020-11-24 23:52] VITALS: BP 125/77; PULSE 78; RESP 18; TEMP 37.1; O2SAT 97; BMI 22.4
[2020-11-25] VITALS (7 sets, daily range): BP systolic 99–130; BP diastolic 63–90; PULSE 64–90; RESP 16–18; TEMP 36.5–36.7; O2SAT 96–100
--- NOTE | 2020-11-25 02:58 | ED.GENADULT ---
HPI - General Adult General Chief complaint: Recheck/Abnormal Lab/Rx Stated complaint: bacteria in blood? Time Seen by Provider: 11/25/20 02:35 Source: patient Mode of arrival: ambulatory Limitations: no limitations History of Present Illness HPI narrative: 35-year-old female who was requested to come back to the emergency department for evaluation of positive blood cultures, the patient grew E coli out of her blood and urine. This will be the patient's 4th visit since 11/18/2020. The patient initially presented to emergency department on 11/18/2020 with 2 days left-sided flank pain. Patient was diagnosed with urinary tract infection and started on Macrobid (nitrofurantoin) and Pyridium (phenazopyridine). The patient states that she did not get any better and returned early in the morning on on 11/20/2020. The patient had worsening right-sided flank and abdominal pain with subjective fever and chills. Patient was evaluated was advised continue her Tylenol and ibuprofen and she was started on cefuroxime 400 mg daily for 7 days. She returned that same day on 11/20/2020 with worsening symptoms. Was again evaluated advised to continue taking her antibiotics and started on oxycodone and ondansetron. She was contacted today and told that her blood culture from 11/20/2020 for growing E coli and she should return to the emergency department for evaluation. Also of note, the patient's urine culture from 11/18/2020 was growing E coli as well. Both her E coli in her urine and blood were sensitive to cephalosporins and Macrobid. The patient states that yesterday she continue to feel ill throughout the day. She states that at 6:00 a.m. she had fever sweats and chills. She states that at 12:00 p.m. she felt extremely fatigued and had multiple episodes of emesis. At 4:00 p.m. she again developed fever with sweats and chills. She states that she has continued to have constant, right-sided abdominal pain with an intermittent sharp pain which is 10/10. She states that the pain radiates to her right flank area. Patient does have a history of medullary sponge kidneys as well as multiple kidney stones. The patient had a CT scan on 11/20/2020 which revealed no kidney stones, no hydronephrosis, hydroureter or calculi. There was no perinephric stranding. There was a small amount of pelvic fluid which was felt to be physiologic. Related Data Home Medications Medication Instructions Recorded Confirmed clonazepam 1 mg tablet 1 mg PO DAILY PRN 12/13/19 07/10/20 zolpidem 10 mg tablet 10 mg PO BEDTIME PRN 12/13/19 07/10/20 cyanocobalamin (vitamin B-12) 1,000 mcg PO DAILY 07/10/20 07/10/20 1,000 mcg tablet divalproex 500 mg tablet,extended 1 tab PO BID 07/10/20 07/10/20 release 24 hr (Depakote ER) lurasidone 20 mg tablet (Latuda) 1 tab PO BEDTIME 07/10/20 07/10/20 multivitamin 1 tab PO DAILY 07/10/20 07/10/20 spironolactone 50 mg tablet 1 tab PO DAILY 07/10/20 07/10/20 Previous Rx's Medication Instructions Recorded fluticasone 500 mcg-salmeterol 50 1 inh INHALATION BID #60 ea 07/12/20 mcg/dose blistr powdr for inhalation (Advair Diskus) levalbuterol tartrate 45 2 puff INHALATION Q4-6H PRN #15 g 07/12/20 mcg/actuation aerosol inhaler metoprolol succinate 25 mg 12.5 mg PO BID #30 tab 07/12/20 tablet,extended release 24 hr montelukast 10 mg tablet 10 mg PO DAILY 30 Days #30 tab 07/15/20 nitrofurantoin 100 mg PO Q12H 7 Days #14 cap 08/03/20 monohydrate/macrocrystals 100 mg capsule (Macrobid) amoxicillin 875 mg-potassium 1 tab PO Q12H 7 Days #14 tab 09/23/20 clavulanate 125 mg tablet (Augmentin) nitrofurantoin 100 mg PO Q12H 5 Days #10 cap 11/18/20 monohydrate/macrocrystals 100 mg capsule (Macrobid) phenazopyridine 100 mg tablet 100 mg PO Q8H PRN #6 tab 11/18/20 (Pyridium) cefixime 400 mg capsule 400 mg PO DAILY 7 Days #7 cap 11/20/20 ondansetron 4 mg disintegrating 4 mg PO Q8H PRN #10 tab 10/01/21 tablet oxycodone 5 mg tablet 5 mg PO Q6H PRN #7 tab 11/20/20 Allergies Allergy/AdvReac Type Severity Reaction Status Date / Time somatropin [SOMATROPIN] Allergy Unknown UNKNOWN Verified 11/24/20 15:12 amitriptyline [AMITRIPTYLINE] AdvReac Intermediate NAUSEA, Verified 11/24/20 15:12 DIZZINESS albuterol [ALBUTEROL] AdvReac Mild TACHYCARDIA Verified 11/24/20 15:12 esomeprazole [From NEXIUM] AdvReac Mild TACHYCARDIA Verified 11/24/20 15:12 Review of Systems Review of Systems: Yes all other systems are reviewed and are negative [facility] Past Medical History [facility] Narrative: Social history: The patient denies tobacco, alcohol and drug use. Medical History Asthma with COPD with exacerbation Bipolar 1 disorder Carpal tunnel syndrome COPD (chronic obstructive pulmonary disease) Diabetes mellitus Family history of COPD (chronic obstructive pulmonary disease) Fibromyalgia History of MRSA infection Inappropriate sinus node tachycardia Kidney stones Polycystic ovarian disease Postural orthostatic tachycardia syndrome POTS (postural orthostatic tachycardia syndrome) Schizoaffective disorder Subclinical hyperthyroidism SVT (supraventricular tachycardia) UTI (urinary tract infection) Surgical History History of renal stent History of tubal ligation Hx of abdominoplasty Hx of lithotripsy Tubal ligation status Family History Family History Other COPD (chronic obstructive pulmonary disease) Social History Social History Household Members: Family Housing: Condominium Do you presently have visiting nurse or other home services: No Alcohol intake: never Patient Tobacco Use Status: Never used Tobacco Second Hand Smoke Exposure: No Advance Directives: No Advance Directives Information Provided: Yes service: No Current occupational status: unemployed Physical Exam Vital Signs: Vital Signs: Last Vital Signs Temp 97.7 F 11/25/20 04:40 Pulse 88 11/25/20 04:40 Resp 16 11/25/20 04:51 BP 128/80 11/25/20 04:40 Pulse Ox 100 11/25/20 04:40 Body Mass Index 22.4 Const: Other: Awake alert female patient, very pleasant and cooperative, does not appear to be in distress, answers all questions appropriately. HENMT: Head: Yes normal to inspection, Yes normocephalic and Yes atraumatic Ears: external ears normal General nose exam: Normal external nose present Face and sinus: Yes normal facial exam Mouth: Normal oral and palatal mucosa present Throat: Yes posterior oropharynx normal Eyes: General: appearance normal, both eyes and all related structures Pupils: Equal, round and reactive pupils present Neck: Neck: Yes normal visual inspection, Yes no lymphadenopathy, Yes trachea midline and Yes supple Chest: Chest palpation & inspection: normal inspection of the chest and normal palpation of entire chest wall Resp: Effort & Inspection: normal respiratory effort and able to speak in complete sentences Auscultation: clear to auscultation bilaterally Cardio: Rate: regular rate Rhythm: regular rhythm Heart sounds: S1 normal heart sound present, S2 normal heart sound present and no murmurs GI: Inspection: Yes normal to inspection Palpation (GI): Soft to palpation, Tenderness to palpation present (GI) in the RLQ (Moderate) and in the RUQ (Moderate) and no guarding Auscultation: normal bowel sounds : General: Yes CVA tenderness on the right (Moderate) Back/Spine/Pelvis: Back: CVA tenderness Skin: General skin exam: no rashes or lesions noted Neuro: Cranial nerves: Yes CN's II-XII intact bilaterally and Yes Equal, round and reactive pupils present Cognition (Neuro): normal cognition Motor exam (neuro): 5/5 motor strength present throughout Extrem: General: Yes normal to inspection Psych: Appearance: grossly normal Speech and movement: Normal speech and movement present Affect: normal affect Attitude: cooperative Thought process: Normal thought process present Thought content: Normal thought content present Course Course Course Narrative: 35-year-old female who was asked to come back to emergency department for evaluation of positive blood cultures and a positive urine culture. The patient grew E coli out of 1 set of blood cultures drawn on 11/20/2020, E coli was sensitive to cephalosporins and Macrobid. Her urine from 11/18/2020 also grew E coli sensitive to cephalosporins and Macrobid. The patient is still symptomatic with fever and chills throughout the day yesterday, right sided abdominal and right-sided flank pain. The patient's vital signs were normal. Physical examination did reveal right sided abdominal tenderness and right flank tenderness. Given the fact that the patient is still symptomatic, I will repeat the patient septic workup including obtaining a CT scan of the abdomen pelvis with IV contrast looking for an abscess. The patient be treated with Levaquin 750 mg IV, normal saline 30 cc/kilogram IV bolus, morphine 4 mg IV for pain and Zofran 4 mg IV for her nausea and vomiting. 0447: Patient's CBC and CMP were normal. CRP is elevated at 1.25. CT scan of the abdomen pelvis with IV contrast did not reveal any clear evidence for abscess or significant pyelonephritis. I will discuss the patient's presentation with the covering hospitalist. 0536: I did discuss the patient's presentation with the covering hospitalist, and the patient will be admitted to the hospital service for further treatment. Medical Decision Making Lab Data Result diagrams: 11/25/20 03:19 11/25/20 03:18 Labs: Lab Results 11/25/20 11/25/20 11/25/20 Range/Units 03:18 03:18 03:19 WBC 9.5 (4.8-10.8) X10*3/uL RBC 4.82 (4.20-5.50) X10*6/uL Hgb 14.0 (12.0-16.0) g/dl Hct 41.5 (37-47) % MCV 86.1 (80-98) fL MCH 29.0 (27.0-33.0) pg MCHC 33.7 (31.0-35.0) g/dl RDW 12.4 (11.0-16.0) % Plt Count 394 (160-400) X10*3/uL MPV 10.1 (9.4-12.3) fL Immature Gran % (Auto) 0.3 (0.0-0.4) % Neut % (Auto) 51.1 (45-73) % Lymph % (Auto) 35.8 (20-40) % [place] % (Auto) 7.9 (2-11) % Eos % (Auto) 4.1 H (0-4) % Baso % (Auto) 0.8 (0-2) % Lymph # (Auto) 3.4 (1.2-4.9) X10*3/uL [place] # (Auto) 0.8 (0.1-1.2) X10*3/uL Eos # (Auto) 0.4 (0.0-0.4) X10*3/uL Baso # (Auto) 0.1 (0.0-0.2) X10*3/uL Abs Immat Gran (auto) 0.03 (0.00-0.03) X10*3/uL Absolute Neuts (auto) 4.8 (2.0-8.3) X10*3/uL Absolute Nucleated RBC 0.000 (0.0-0.012) X10*3/uL Nucleated RBC % (auto) 0.0 (0.0-0.2) /100WBC Sodium 139 (135-145) mmol/L Potassium 4.1 (3.3-5.1) mmol/L Chloride 105 (96-108) mmol/L Carbon Dioxide 25 (22-29) mmol/L Anion Gap 13 (12-20) BUN 13 (9-16) mg/dL Creatinine 0.76 (0.5-1.4) mg/dL Estim Creat Clear Calc 75.6 Estimated GFR > 60 Random Glucose 95 (60-115) mg/dL Lactic Acid (0.5-2.0) mmol/L Calcium 9.9 (8.4-10.2) mg/dL Total Bilirubin 0.7 (0.0-1.0) mg/dL AST 18 (5-31) U/L ALT 22 (0-31) U/L Alkaline Phosphatase 65 (39-117) U/L C-Reactive Protein 1.25 H (< or = 0.50) mg/dL Total Protein 7.9 (6.5-8.0) g/dL Albumin 4.5 (3.5-5.0) g/dL Lipase 28 (8-78) U/L Urine Color Urine Appearance Urine pH (5.0-8.0) Ur Specific [place] (1.005-1.025) Urine Protein (NEG-TRACE) MG/DL Urine Glucose (UA) (NEG) MG/DL Urine Ketones (NEG) MG/DL Urine Blood (NEG) Urine Nitrite (NEG) Ur Leukocyte Esterase (NEG) COVID-19 (LAKHWINDER) Negative (Negative) COVID-19 Clin Com See Note 11/25/20 11/25/20 Range/Units 03:19 04:54 WBC (4.8-10.8) X10*3/uL RBC (4.20-5.50) X10*6/uL Hgb (12.0-16.0) g/dl Hct (37-47) % MCV (80-98) fL MCH (27.0-33.0) pg MCHC (31.0-35.0) g/dl RDW (11.0-16.0) % Plt Count (160-400) X10*3/uL MPV (9.4-12.3) fL Immature Gran % (Auto) (0.0-0.4) % Neut % (Auto) (45-73) % Lymph % (Auto) (20-40) % [place] % (Auto) (2-11) % Eos % (Auto) (0-4) % Baso % (Auto) (0-2) % Lymph # (Auto) (1.2-4.9) X10*3/uL [place] # (Auto) (0.1-1.2) X10*3/uL Eos # (Auto) (0.0-0.4) X10*3/uL Baso # (Auto) (0.0-0.2) X10*3/uL Abs Immat Gran (auto) (0.00-0.03) X10*3/uL Absolute Neuts (auto) (2.0-8.3) X10*3/uL Absolute Nucleated RBC (0.0-0.012) X10*3/uL Nucleated RBC % (auto) (0.0-0.2) /100WBC Sodium (135-145) mmol/L Potassium (3.3-5.1) mmol/L Chloride (96-108) mmol/L Carbon Dioxide (22-29) mmol/L Anion Gap (12-20) BUN (9-16) mg/dL Creatinine (0.5-1.4) mg/dL Estim Creat Clear Calc Estimated GFR Random Glucose (60-115) mg/dL Lactic Acid 0.6 (0.5-2.0) mmol/L Calcium (8.4-10.2) mg/dL Total Bilirubin (0.0-1.0) mg/dL AST (5-31) U/L ALT (0-31) U/L Alkaline Phosphatase (39-117) U/L C-Reactive Protein (< or = 0.50) mg/dL Total Protein (6.5-8.0) g/dL Albumin (3.5-5.0) g/dL Lipase (8-78) U/L Urine Color YELLOW Urine Appearance CLEAR Urine pH 6.5 (5.0-8.0) Ur Specific [place] <= 1.005 (1.005-1.025) Urine Protein NEG (NEG-TRACE) MG/DL Urine Glucose (UA) NEG (NEG) MG/DL Urine Ketones NEG (NEG) MG/DL Urine Blood NEG (NEG) Urine Nitrite NEG (NEG) Ur Leukocyte Esterase NEG (NEG) COVID-19 (LAKHWINDER) (Negative) COVID-19 Clin Com Discharge Plan Discharge Patient Disposition: Admitted As Inpatient Prescriptions: No Action clonazepam 1 mg tablet 1 mg PO DAILY PRN (Reason: Anxiety) RF: 0 zolpidem 10 mg tablet 10 mg PO BEDTIME PRN (Reason: insomnia) RF: 0 divalproex [Depakote ER] 500 mg tablet extended release 24 hr 1 tab PO BID RF: 0 spironolactone 50 mg tablet 1 tab PO DAILY RF: 0 Latuda 20 mg tablet 1 tab PO BEDTIME RF: 0 multivitamin Tablet 1 tab PO DAILY RF: 0 cyanocobalamin (vitamin B-12) 1,000 mcg Tablet 1,000 mcg PO DAILY RF: 0 levalbuterol tartrate 45 mcg/actuation HFA aerosol inhaler 2 puff inhalation Q4-6H PRN (Reason: shortness of breath or wheezing) Qty: 15 RF: 0 fluticasone propion-salmeterol [Advair Diskus] 500-50 mcg/dose blister with device 1 inh inhalation BID Qty: 60 RF: 0 metoprolol succinate 25 mg tablet extended release 24 hr 12.5 mg PO BID Qty: 30 RF: 0 nitrofurantoin monohyd/m-cryst [Macrobid] 100 mg capsule 100 mg PO Q12H 7 Days Qty: 14 RF: 0 amoxicillin-pot clavulanate [Augmentin] 875-125 mg tablet 1 tab PO Q12H 7 Days Qty: 14 RF: 0 nitrofurantoin monohyd/m-cryst [Macrobid] 100 mg capsule 100 mg PO Q12H 5 Days Qty: 10 RF: 0 phenazopyridine [Pyridium] 100 mg tablet 100 mg PO Q8H PRN (Reason: pain) Qty: 6 RF: 0 cefixime 400 mg capsule 400 mg PO DAILY 7 Days Qty: 7 RF: 0 oxycodone 5 mg tablet 5 mg PO Q6H PRN (Reason: pain) Qty: 7 RF: 0 ondansetron 4 mg tablet,disintegrating 4 mg PO Q8H PRN (Reason: nausea and vomiting) Qty: 10 RF: 0 montelukast 10 mg tablet 10 mg PO DAILY 30 Days Qty: 30 RF: 5
[2020-11-25 03:24] LABS: MANUAL DIFF FLAG NO
[2020-11-25 03:27] LABS: Basophils Absolute Auto 0.1 X10*3/uL (0.0-0.2); Basophils Percent Auto 0.8 % (0-2); Eosinophils Absolute Auto 0.4 X10*3/uL (0.0-0.4); Eosinophils Percent Auto 4.1 % (0-4); Hematocrit 41.5 % (37-47); Imm Gran Abs Auto 0.03 X10*3/uL (0.00-0.03); Imm Gran Pct Auto 0.3 % (0.0-0.4); Lymphocytes Absolute Auto 3.4 X10*3/uL (1.2-4.9); Lymphocytes Percent Auto 35.8 % (20-40); Mean Corpuscular HGB Conc 33.7 g/dl (31.0-35.0); Mean Corpuscular Volume 86.1 fL (80-98); Mean Platelet Volume 10.1 fL (9.4-12.3); Monocytes Absolute Auto 0.8 X10*3/uL (0.1-1.2); Monocytes Percent Auto 7.9 % (2-11); Neutrophils Absolute Auto 4.8 X10*3/uL (2.0-8.3); Neutrophils Percent Auto 51.1 % (45-73); Platelet Count 394 X10*3/uL (160-400); Red Blood Count 4.82 X10*6/uL (4.20-5.50); Red Cell Distribution Width 12.4 % (11.0-16.0); White Blood Count 9.5 X10*3/uL (4.8-10.8)
[2020-11-25] MEDS: ondansetron HCL 4 MG/2 ML VIAL IVPUSH ×4 (03:36→22:40)
[2020-11-25 03:38] LABS: Lactic Acid 0.6 mmol/L (0.5-2.0)
[2020-11-25] MEDS: Morphine Sulfate 4 MG/ML CARTRIDGE IVPUSH (03:38)
[2020-11-25] MEDS: levoFLOXacin/D5W 750 MG/150 ML PIGGYBACK 100 MG IV (03:40)
[2020-11-25 03:42] LABS: Alanine Aminotransferase 22 U/L (0-31); Albumin Level 4.5 g/dL (3.5-5.0); Alkaline Phosphatase 65 U/L (39-117); Anion Gap 13 (12-20); Aspartate Amino Transferase 18 U/L (5-31); Bilirubin Total 0.7 mg/dL (0.0-1.0); Blood Urea Nitrogen 13 mg/dL (9-16); C Reactive Protein 1.25 mg/dL (< or = 0.50); Calcium 9.9 mg/dL (8.4-10.2); Carbon Dioxide 25 mmol/L (22-29); Chloride 105 mmol/L (96-108); Creatinine Clr Calc Pharmacy 75.6; Estimated Glomerular Filt Rate > 60; Glucose Random 95 mg/dL (60-115); Lipase 28 U/L (8-78); Potassium 4.1 mmol/L (3.3-5.1); Sodium 139 mmol/L (135-145); Total Protein 7.9 g/dL (6.5-8.0)
[2020-11-25 03:49] LABS: COVID-19 Test Negative (Negative)
[2020-11-25] MEDS: iohexoL 350 MG/ML 100 ML INFUS..BTL 85 ML IV (04:02)
[2020-11-25] MEDS: 0.9 % Sodium Chloride 1,564.89 ML 1564.89 ML IV (04:11)
[2020-11-25 05:16] LABS: Appearance Urine CLEAR; Color Urine YELLOW; Glucose Urine UA NEG (NEG); Leukocyte Esterase Urine NEG (NEG); Nitrite Urine NEG (NEG); PH 6.5 (5.0-8.0); Specific Gravity - Urine <= 1.005 (1.005-1.025); Urine Blood NEG (NEG); Urine Ketones NEG (NEG); Urine Protein NEG (NEG-TRACE)
--- NOTE | 2020-11-25 06:12 | PM.IMHP ---
History of Present Illness Date of Service: 11/25/20 Chief Complaint: Bacteremia This is a 35-year-old female with past medical history of diabetes, POTS, asthma with COPD who initially presented to the hospital on the 18 of November with complaints of left flank pain and at that time was diagnosed with UTI and sent home on Macrobid. At that time she did not get any better and therefore returned to the hospital on 11/20 with similar complaints. At that time patient had worsening right-sided flank and abdominal pain and was then switched to cefuroxime for 7 days. Patient cultures drawn on the 20 of November grew E coli including blood and urine cultures and therefore she was called to the hospital today. At this time patient reports that she did not get better, she continues to have right-sided flank pain, she continues to have chills, fever of 101-102 daily, feeling fatigue and overall very sick. She denies having any chest pain, no shortness of breath, she has malodorous urine with no dysuria, urgency, or frequency. She denies having any lower extremity edema. Today patient vitals are significant for a temp of 97.7?, heart rate of 88, respiratory rate of 16, blood pressure of 128/80, satting 100% on room air Labs are significant for WBC count of 9.5, otherwise unremarkable. UA is negative. Abdominal pelvic CT shows no pyelonephritis COVID-19 negative. Patient will be admitted as she failed outpatient therapy Review of Systems Review of Systems: Yes all other systems are reviewed and are negative [facility] Medical History Asthma with COPD with exacerbation Bipolar 1 disorder Carpal tunnel syndrome COPD (chronic obstructive pulmonary disease) Diabetes mellitus Family history of COPD (chronic obstructive pulmonary disease) Fibromyalgia History of MRSA infection Inappropriate sinus node tachycardia Kidney stones Polycystic ovarian disease Postural orthostatic tachycardia syndrome POTS (postural orthostatic tachycardia syndrome) Schizoaffective disorder Subclinical hyperthyroidism SVT (supraventricular tachycardia) UTI (urinary tract infection) Family History Other COPD (chronic obstructive pulmonary disease) Pertinent family history: Family history for hypertension, diabetes and coronary artery disease Surgical History History of renal stent History of tubal ligation Hx of abdominoplasty Hx of lithotripsy Tubal ligation status Social History Household Members: Family Housing: Condominium Do you presently have visiting nurse or other home services: No Alcohol intake: never Patient Tobacco Use Status: Never used Tobacco Second Hand Smoke Exposure: No Advance Directives: No Advance Directives Information Provided: Yes service: No Current occupational status: unemployed Meds Allergies Allergy/AdvReac Type Severity Reaction Status Date / Time somatropin [SOMATROPIN] Allergy Unknown UNKNOWN Verified 11/24/20 15:12 amitriptyline [AMITRIPTYLINE] AdvReac Intermediate NAUSEA, Verified 11/24/20 15:12 DIZZINESS albuterol [ALBUTEROL] AdvReac Mild TACHYCARDIA Verified 11/24/20 15:12 esomeprazole [From NEXIUM] AdvReac Mild TACHYCARDIA Verified 11/24/20 15:12 Home Medications Medication Instructions Recorded Confirmed Last Taken Type clonazepam 1 mg tablet 1 mg PO DAILY PRN 12/13/19 11/25/20 1 Day Ago History ~11/24/20 zolpidem 10 mg tablet 10 mg PO BEDTIME PRN 12/13/19 11/25/20 1 Day Ago History ~11/24/20 cyanocobalamin (vitamin B-12) 1,000 mcg PO DAILY 07/10/20 11/25/20 1 Day Ago History 1,000 mcg tablet ~11/24/20 divalproex 500 mg tablet,extended 1 tab PO BID 07/10/20 11/25/20 1 Day Ago History release 24 hr (Depakote ER) ~11/24/20 lurasidone 20 mg tablet (Latuda) 1 tab PO BEDTIME 07/10/20 11/25/20 1 Day Ago History ~11/24/20 multivitamin 1 tab PO DAILY 07/10/20 11/25/20 1 Day Ago History ~11/24/20 spironolactone 50 mg tablet 1 tab PO DAILY 07/10/20 11/25/20 1 Day Ago History ~11/24/20 Physical Exam Vital Signs and Narrative: Vital Signs: Last Vital Signs Temp 97.7 F 11/25/20 04:40 Pulse 88 11/25/20 04:40 Resp 16 11/25/20 04:51 BP 128/80 11/25/20 04:40 Pulse Ox 100 11/25/20 04:40 Body Mass Index 22.4 Const: General: cooperative and no acute distress Orientation/consciousness: patient oriented x3 Eyes: General: appearance normal, both eyes and all related structures Pupils: Equal, round and reactive pupils present Resp: Effort & Inspection: normal respiratory effort Auscultation: clear to auscultation bilaterally Cardio: Rate: regular rate Rhythm: regular rhythm GI: Palpation (GI): Soft to palpation Auscultation: normal bowel sounds : Other: CVA tenderness on the right Skin: General skin exam: no rashes or lesions noted Neuro: General: patient oriented x3 Cranial nerves: Yes Equal, round and reactive pupils present Cognition (Neuro): normal cognition Extrem: General: Yes normal to inspection and Yes no pedal edema Results Labs CBC and Chem 7: 11/25/20 03:19 11/25/20 03:18 Labs: Laboratory Results - last 24 hr 11/25/20 11/25/20 11/25/20 03:18 03:18 03:19 MCV 86.1 MCH 29.0 MCHC 33.7 RDW 12.4 Plt Count 394 MPV 10.1 Immature Gran % (Auto) 0.3 Neut % (Auto) 51.1 Lymph % (Auto) 35.8 [place] % (Auto) 7.9 Eos % (Auto) 4.1 H Baso % (Auto) 0.8 Lymph # (Auto) 3.4 [place] # (Auto) 0.8 Eos # (Auto) 0.4 Baso # (Auto) 0.1 Abs Immat Gran (auto) 0.03 Absolute Neuts (auto) 4.8 Absolute Nucleated RBC 0.000 Nucleated RBC % (auto) 0.0 Anion Gap 13 Estim Creat Clear Calc 75.6 Estimated GFR > 60 Random Glucose 95 Lactic Acid Calcium 9.9 Total Bilirubin 0.7 AST 18 ALT 22 Alkaline Phosphatase 65 C-Reactive Protein 1.25 H Total Protein 7.9 Albumin 4.5 Lipase 28 Urine Color Urine Appearance Urine pH Ur Specific [place] Urine Protein Urine Glucose (UA) Urine Ketones Urine Blood Urine Nitrite Ur Leukocyte Esterase COVID-19 (LAKHWINDER) Negative COVID-19 Clin Com See Note 11/25/20 11/25/20 03:19 04:54 MCV MCH MCHC RDW Plt Count MPV Immature Gran % (Auto) Neut % (Auto) Lymph % (Auto) [place] % (Auto) Eos % (Auto) Baso % (Auto) Lymph # (Auto) [place] # (Auto) Eos # (Auto) Baso # (Auto) Abs Immat Gran (auto) Absolute Neuts (auto) Absolute Nucleated RBC Nucleated RBC % (auto) Anion Gap Estim Creat Clear Calc Estimated GFR Random Glucose Lactic Acid 0.6 Calcium Total Bilirubin AST ALT Alkaline Phosphatase C-Reactive Protein Total Protein Albumin Lipase Urine Color YELLOW Urine Appearance CLEAR Urine pH 6.5 Ur Specific [place] <= 1.005 Urine Protein NEG Urine Glucose (UA) NEG Urine Ketones NEG Urine Blood NEG Urine Nitrite NEG Ur Leukocyte Esterase NEG COVID-19 (LAKHWINDER) COVID-19 Clin Com Imaging Radiologist's Impressions: Impressions Abdomen/Pelvis CT 11/25/20 03:10 IMPRESSION: No acute findings in the abdomen or pelvis. No inflammatory changes. Normal appearance of the kidneys. Assessment and Plan (1) Pyelonephritis: Status: Acute (2) UTI (urinary tract infection): Status: Acute (3) Bacteremia: Status: Acute 35-year-old female with past medical history of POTS, asthma, type 2 diabetes who presents to the hospital with complaints of right flank pain, in failed outpatient therapy for UTI # UTI - currently UA is negative but patient continues to have symptoms - failed 2 rounds of outpatient antibiotic therapy with Macrobid as well as cefexime - will start her on ceftriaxone - patient has been re-cultured - will follow new cultures # pyelonephritis - has clinical evidence of pyelonephritis with no CT evidence of nephritic stranding - IV antibiotic - follow new culture # bacteremia - blood and urine cultures both positive for E coli pansensitive - will start her on ceftriaxone - follow-up new culture # diabetes - low-dose sliding cm - diabetic diet # COPD/asthma - no exacerbation - continue home inhaler DVT prophylaxis: Lovenox Quality Stroke Does the patient have a stroke diagnosis?: No VTE Prior VTE?: No VTE Risk Level:: Medical - moderate - high VTE Device Contraindication: Treatment Not Indicated VTE Drug Contraindication: N/A - Med Ordered
--- NOTE | 2020-11-25 07:53 | PHA.MEDREC ---
Pharmacy Consult ? Medication Reconciliation Pharmacy has completed the medication reconciliation. Patient reports taking metoprolol succinate and spironolactone. There is no recent filled for these medications, metoprolol last filled on 07/12/2020 for 30 days and spironolcatone last filled 02/26/2020 for 90 days. Metoprolol was added when last admitted in June by Dr. Newton. I called [facility] who had no record of spirnolactone being active. I called [facility] where the spironolactone was prescribed. It was prescrbied for 30 days with 5 refills therefore the patient is either none adherent or is no longer taking it as the refills should of ran out by . Gracie Altamirano, KenD
[2020-11-25] MEDS: Enoxaparin Sodium 40 MG/0.4 ML SYRINGE SUBCUT (07:55)
[2020-11-25] MEDS: cefTRIAXone sodium 1 GM in 0.9 % Sodium Chloride 50 ML IV (07:55)
[2020-11-25 08:07] LABS: Glucose, Whole Blood 98 mg/dL (60-115)
[2020-11-25] MEDS: Acetaminophen 325 MG TABLET 650 MG PO (09:17)
[2020-11-25 12:35] LABS: Glucose, Whole Blood 108 mg/dL (60-115)
--- NOTE | 2020-11-25 14:53 | PM.EVENT ---
Event Note Date of Service: 11/25/20 Event Note: Patient seen and examined. No acute changes from initial H and P. Resting comfortably. Tylenol with good effect as related to fever and chills. Id consult placed. Further plans based on forthcoming data she and clinical course
[2020-11-25 17:06] LABS: Glucose, Whole Blood 133 mg/dL (60-115)
--- NOTE | 2020-11-25 17:55 | P.CNID_ITS ---
History of Present Illness Data of Consult Service Date: 11/25/20 Requesting physician: Terrance Dow Primary Care Provider: Natalie REID Reason for consult: bacteremia She presents with one week dysuria as well as malaise and abdominal discomfort,7/10 suprapubic. She has dysuria. She has had nephrolithiasis as well. She has gram negative bacteremia and was sent home and asked to return Review of Systems Review of Systems: Yes all other systems are reviewed and are negative PMFSH Past Medical History Medical History Asthma with COPD with exacerbation Bipolar 1 disorder Carpal tunnel syndrome COPD (chronic obstructive pulmonary disease) Diabetes mellitus Family history of COPD (chronic obstructive pulmonary disease) Fibromyalgia History of MRSA infection Inappropriate sinus node tachycardia Kidney stones Polycystic ovarian disease Postural orthostatic tachycardia syndrome POTS (postural orthostatic tachycardia syndrome) Schizoaffective disorder Subclinical hyperthyroidism SVT (supraventricular tachycardia) UTI (urinary tract infection) Family History Family History Other COPD (chronic obstructive pulmonary disease) Family history: reviewed and not pertinent Surgical History Surgical History History of renal stent History of tubal ligation Hx of abdominoplasty Hx of lithotripsy Tubal ligation status Social History Social History Household Members: Family [facility] Do you presently have visiting nurse or other home services: No Alcohol intake: never Patient Tobacco Use Status: Never used Tobacco Second Hand Smoke Exposure: No Advance Directives: No Advance Directives Information Provided: Yes service: No Current occupational status: unemployed Meds Allergies Allergy/AdvReac Type Severity Reaction Status Date / Time somatropin [SOMATROPIN] Allergy Unknown UNKNOWN Verified 11/24/20 15:12 amitriptyline [AMITRIPTYLINE] AdvReac Intermediate NAUSEA, Verified 11/24/20 15:12 DIZZINESS albuterol [ALBUTEROL] AdvReac Mild TACHYCARDIA Verified 11/24/20 15:12 esomeprazole [From NEXIUM] AdvReac Mild TACHYCARDIA Verified 11/24/20 15:12 Active Medications: Current Medications Acetaminophen (Acetaminophen 325 Mg Tablet) 650 mg PO Q6H PRN PRN Reason: Pain, Mild (Pain Scale 1-3) Last Admin: 11/25/20 09:17 Dose: 650 mg Documented by: Clonazepam (Clonazepam 1 Mg Tablet) 1 mg PO DAILY PRN PRN Reason: Anxiety Cyanocobalamin (Cyanocobalamin (Vitamin B-12) 1,000 Mcg Tablet) 1,000 mcg PO DAILY [facility] Last Admin: 11/25/20 08:08 Dose: Not Given Documented by: Dextrose (Dextrose 50 % 25 Gm/50 Ml Vial) 25 gm IVPUSH Q15M PRN; Protocol PRN Reason: per Hypoglycemia Standing Ord. Divalproex Sodium (Divalproex Sodium Er 500 Mg Tab.Er.24h) 500 mg PO BID [facility] Last Admin: 11/25/20 08:08 Dose: Not Given Documented by: Docusate Sodium (Docusate Sodium 100 Mg Capsule) 100 mg PO DAILY PRN PRN Reason: Constipation Enoxaparin Sodium (Enoxaparin Sodium 40 Mg/0.4 Ml Syringe) 40 mg SUBCUT Q24H [facility] Last Admin: 11/25/20 07:55 Dose: 40 mg Documented by: Fluticasone/Vilanterol (Fluticasone/Vilanterol 200/25 Blst.W.Dev) 1 puff INHALE DAILY [facility] Last Admin: 11/25/20 09:06 Dose: Not Given Documented by: Glucose (Glucose Gel 15 Gm Gel..Gram.) 15 gm PO Q15M PRN; Protocol PRN Reason: per Hypoglycemia Standing Ord. Ceftriaxone Sodium 1 gm/ (Sodium Chloride) 50 mls @ 100 mls/hr IV Q24H [facility] Last Infusion: 11/25/20 08:31 Dose: Infused Documented by: Insulin Human Lispro (Insulin Lispro 100 Unit/Ml 3 Ml Vial) 0 unit SUBCUT QIDACHS [facility]; Protocol Last Admin: 11/25/20 17:45 Dose: Not Given Documented by: Levalbuterol HCl (Levalbuterol Hcl 1.25 Mg/0.5 Ml Vial.Neb) 1.25 mg INHALE Q6H PRN PRN Reason: Shortness of Breath Lurasidone HCl (Lurasidone Hcl 20 Mg Tablet) 60 mg PO BEDTIME [facility] Metoprolol Succinate (Metoprolol Succinate Er 12.5 Mg Halftab.Er.24h) 12.5 mg PO BID [facility]; Protocol Last Admin: 11/25/20 09:34 Dose: Not Given Documented by: Morphine Sulfate (Morphine Sulfate 4 Mg/Ml Cartridge) 4 mg IVPUSH Q4H PRN; Protocol PRN Reason: Pain, Severe (Pain Scale 7-10) Multivitamins/Vitamin C (Multivitamin Tablet) 1 tab PO DAILY [facility] Last Admin: 11/25/20 08:08 Dose: Not Given Documented by: Ondansetron HCl (Ondansetron Hcl 4 Mg/2 Ml Vial) 4 mg IVPUSH Q8H PRN PRN Reason: Nausea and Vomiting Sodium Chloride (0.9 % Sodium Chloride Flush 3 Ml Syringe) 3 ml IVFLUSH QSHIFT [facility] Last Admin: 11/25/20 17:46 Dose: Not Given Documented by: Spironolactone (Spironolactone 25 Mg Tablet) 50 mg PO DAILY [facility]; Protocol Last Admin: 11/25/20 09:34 Dose: Not Given Documented by: Zolpidem Tartrate (Zolpidem Tartrate 5 Mg Tablet) 5 mg PO BEDTIME PRN PRN Reason: insomnia Home Medications Medication Instructions Recorded Confirmed Last Taken Type clonazepam 1 mg tablet 1 mg PO DAILY PRN 12/13/19 11/25/20 1 Day Ago History ~11/24/20 zolpidem 10 mg tablet 10 mg PO BEDTIME PRN 12/13/19 11/25/20 1 Day Ago History ~11/24/20 cyanocobalamin (vitamin B-12) 1,000 mcg PO DAILY 07/10/20 11/25/20 1 Day Ago History 1,000 mcg tablet ~11/24/20 divalproex 500 mg tablet,extended 1 tab PO BID 07/10/20 11/25/20 1 Day Ago Hist ory release 24 hr (Depakote ER) ~11/24/20 multivitamin 1 tab PO DAILY 07/10/20 11/25/20 1 Day Ago History ~11/24/20 spironolactone 50 mg tablet 1 tab PO DAILY 07/10/20 11/25/20 1 Day Ago History ~11/24/20 lurasidone 60 mg tablet (Latuda) 1 tab PO QPM 11/25/20 11/25/20 11/24/20 History Physical Exam Vital Signs: Vital Signs: Last Vital Signs Temp 97.7 F 11/25/20 04:40 Pulse 64 11/25/20 13:54 Resp 18 11/25/20 13:54 BP 107/63 11/25/20 13:54 Pulse Ox 96 11/25/20 13:54 Body Mass Index 22.4 Const: General: cooperative HENMT: Head: Yes normal to inspection Mouth: Normal oral and palatal mucosa present Eyes: General: appearance normal, both eyes and all related structures Resp: Effort & Inspection: normal respiratory effort Cardio: Rate: regular rate Rhythm: regular rhythm GI: Palpation (GI): Soft to palpation and Tenderness to palpation present (GI) suprapubicly Skin: General skin exam: no rashes or lesions noted Extrem: General: Yes normal to inspection Results Labs CBC & Chem 7: 11/25/20 03:19 11/25/20 03:18 Labs: Short CBC 11/25/20 Range/Units 03:19 WBC 9.5 (4.8-10.8) X10*3/uL Hgb 14.0 (12.0-16.0) g/dl Hct 41.5 (37-47) % Plt Count 394 (160-400) X10*3/uL BMP 11/25/20 03:18 Sodium 139 Potassium 4.1 Chloride 105 Carbon Dioxide 25 BUN 13 Creatinine 0.76 Calcium 9.9 Liver Function 11/25/20 Range/Units 03:18 Total Bilirubin 0.7 (0.0-1.0) mg/dL AST 18 (5-31) U/L ALT 22 (0-31) U/L Alkaline Phosphatase 65 (39-117) U/L Albumin 4.5 (3.5-5.0) g/dL Urine 11/25/20 Range/Units 04:54 Urine Color YELLOW Urine Appearance CLEAR Urine pH 6.5 (5.0-8.0) Ur Specific [place] <= 1.005 (1.005-1.025) Urine Protein NEG (NEG-TRACE) MG/DL Urine Glucose (UA) NEG (NEG) MG/DL Assessment and Plan (1) UTI (urinary tract infection): Status: Acute (2) Pyelonephritis: Status: Acute This is likely due to urinary infection There is possibly E coli Suggest IV Ceftriaxone and await culture IV until improved and then po Ceftin if sensitive for total 10 days Consider Urology referral for prior stones ?stone passed
[2020-11-25] MEDS: clonazePAM 1 MG TABLET PO (20:53)
[2020-11-25 21:02] LABS: Glucose, Whole Blood 101 mg/dL (60-115)
--- NOTE | 2020-11-25 21:10 | MHC.CM.PN ---
CM met with admitted patient with bed assignment 358. IMM reviewed and signed 11/25/2020@2100. HCP not on file. HCP/mother Jordana Feldman ([phone]). Copy requested. Has not seen PCP in 2 years-at [facility]. Pt sees Dr. Vela for her kidney issues. Pt has received 1 Pfizer vaccine, with her second injection scheduled for 12/04/2020. Pt is independent, lives with her 10 year old son, uses no DME and has no services. Pt has [employer] insurance. Pt is safe at home and expects d/c to home without services. Transportation provided by family. CM to follow for d/c needs.
[2020-11-25] MEDS: Divalproex Sodium ER 500 MG TAB.ER.24H PO (22:04)
[2020-11-25] MEDS: Lurasidone HCl 20 MG TABLET 60 MG PO (22:04)
[2020-11-25] MEDS: Zolpidem Tartrate 5 MG TABLET PO (22:35)
[2020-11-26] MEDS: 0.9 % Sodium Chloride Flush 3 ML SYRINGE IVFLUSH ×4 (00:33→21:25)
[2020-11-26 04:00] VITALS: BP 100/50; PULSE 71; RESP 17; TEMP 36.1; O2SAT 98
[2020-11-26 05:16] LABS: MANUAL DIFF FLAG NO
[2020-11-26 05:22] LABS: Basophils Absolute Auto 0.1 X10*3/uL (0.0-0.2); Basophils Percent Auto 0.8 % (0-2); Eosinophils Absolute Auto 0.3 X10*3/uL (0.0-0.4); Eosinophils Percent Auto 3.9 % (0-4); Hematocrit 40.2 % (37-47); Hemoglobin 13.1 g/dl (12.0-16.0); Imm Gran Abs Auto 0.03 X10*3/uL (0.00-0.03); Imm Gran Pct Auto 0.4 % (0.0-0.4); Lymphocytes Percent Auto 37.6 % (20-40); Mean Corpuscular HGB Conc 32.6 g/dl (31.0-35.0); Mean Corpuscular Hemoglobin 28.4 pg (27.0-33.0); Mean Platelet Volume 10.3 fL (9.4-12.3); Monocytes Absolute Auto 0.6 X10*3/uL (0.1-1.2); Monocytes Percent Auto 8.1 % (2-11); Neutrophils Absolute Auto 3.9 X10*3/uL (2.0-8.3); Neutrophils Percent Auto 49.2 % (45-73); Platelet Count 384 X10*3/uL (160-400); Red Blood Count 4.62 X10*6/uL (4.20-5.50); Red Cell Distribution Width 12.4 % (11.0-16.0); White Blood Count 7.9 X10*3/uL (4.8-10.8)
[2020-11-26 05:32] LABS: Anion Gap 11 (12-20); Blood Urea Nitrogen 14 mg/dL (9-16); Calcium 9.4 mg/dL (8.4-10.2); Carbon Dioxide 25 mmol/L (22-29); Chloride 107 mmol/L (96-108); Creatinine Clr Calc Pharmacy 77.6; Estimated Glomerular Filt Rate > 60; Glucose Random 92 mg/dL (60-115); Potassium 4.1 mmol/L (3.3-5.1); Sodium 139 mmol/L (135-145)
[2020-11-26 07:32] VITALS: BP 99/66; PULSE 70; RESP 18; TEMP 36.7; O2SAT 100
[2020-11-26 07:45] LABS: Glucose, Whole Blood 77 mg/dL (60-115)
[2020-11-26] MEDS: Fluticasone/Vilanterol 200/25 BLST.W.DEV 1 PUFF INHALE (08:46)
[2020-11-26 08:47] VITALS: PULSE 73; O2SAT 99
[2020-11-26] MEDS: cefTRIAXone sodium 1 GM in 0.9 % Sodium Chloride 50 ML IV (08:48)
[2020-11-26] MEDS: Multivitamin TABLET 1 TAB PO (08:49)
[2020-11-26] MEDS: Enoxaparin Sodium 40 MG/0.4 ML SYRINGE SUBCUT (08:49)
[2020-11-26] MEDS: Cyanocobalamin (Vitamin B-12) 1,000 MCG TABLET 1000 MCG PO (08:49)
[2020-11-26] MEDS: Divalproex Sodium ER 500 MG TAB.ER.24H PO ×2 (08:49→21:25)
[2020-11-26 11:37] VITALS: BP 99/50; PULSE 76; RESP 18; TEMP 36.1; O2SAT 96
[2020-11-26 11:44] LABS: Glucose, Whole Blood 86 mg/dL (60-115)
[2020-11-26 15:23] VITALS: BP 155/76; PULSE 78; RESP 17; TEMP 36.5; O2SAT 100
--- NOTE | 2020-11-26 15:41 | HO.PM.IMPN ---
Subjective Subjective Date of Service: 11/26/20 Physical Exam Vital Signs: Vital Signs: Last Vital Signs Temp 97.7 F 11/26/20 15:23 Pulse 78 11/26/20 15:23 Resp 17 11/26/20 15:23 BP 155/76 H 11/26/20 15:23 Pulse Ox 100 11/26/20 15:23 Body Mass Index 22.4 Const: Other: No acute distress HENMT: Other: Membranes moist; oropharynx clear Resp: Other: Clear to auscultation. Cardio: Other: No S4 positive S1-S2; no S3 without murmurs rubs or gallops GI: Other: Soft nontender nondistended normoactive bowel sounds Extrem: Other: No edema bilaterally Objective Data Active Medications Acetaminophen (Acetaminophen 325 Mg Tablet) 650 mg PO Q6H PRN PRN Reason: Pain, Mild (Pain Scale 1-3) Last Admin: 11/25/20 09:17 Dose: 650 mg Documented by: TRACY Clonazepam (Clonazepam 1 Mg Tablet) 1 mg PO DAILY PRN PRN Reason: Anxiety Last Admin: 11/25/20 20:53 Dose: 1 mg Documented by: RAMO Cyanocobalamin (Cyanocobalamin (Vitamin B-12) 1,000 Mcg Tablet) 1,000 mcg PO DAILY [facility] Last Admin: 11/26/20 08:49 Dose: 1,000 mcg Documented by: SOTERO Dextrose (Dextrose 50 % 25 Gm/50 Ml Vial) 25 gm IVPUSH Q15M PRN; Protocol PRN Reason: per Hypoglycemia Standing Ord. Divalproex Sodium (Divalproex Sodium Er 500 Mg Tab.Er.24h) 500 mg PO BID [facility] Last Admin: 11/26/20 08:49 Dose: 500 mg Documented by: SOTERO Docusate Sodium (Docusate Sodium 100 Mg Capsule) 100 mg PO DAILY PRN PRN Reason: Constipation Enoxaparin Sodium (Enoxaparin Sodium 40 Mg/0.4 Ml Syringe) 40 mg SUBCUT Q24H [facility] Last Admin: 11/26/20 08:49 Dose: 40 mg Documented by: SOTERO Fluticasone/Vilanterol (Fluticasone/Vilanterol 200/25 Blst.W.Dev) 1 puff INHALE DAILY [facility] Last Admin: 11/26/20 08:46 Dose: 1 puff Documented by: HERIBERTO Glucose (Glucose Gel 15 Gm Gel..Gram.) 15 gm PO Q15M PRN; Protocol PRN Reason: per Hypoglycemia Standing Ord. Ceftriaxone Sodium 1 gm/ (Sodium Chloride) 50 mls @ 100 mls/hr IV Q24H [facility] Last Infusion: 11/26/20 09:20 Dose: 0 mls/hr Documented by: SOTERO Insulin Human Lispro (Insulin Lispro 100 Unit/Ml 3 Ml Vial) 0 unit SUBCUT QIDACHS [facility]; Protocol Last Admin: 11/26/20 12:19 Dose: Not Given Documented by: SOTERO Non-Admin Reason: No Insulin Coverage Levalbuterol HCl (Levalbuterol Hcl 1.25 Mg/0.5 Ml Vial.Neb) 1.25 mg INHALE Q6H PRN PRN Reason: Shortness of Breath Lurasidone HCl (Lurasidone Hcl 20 Mg Tablet) 60 mg PO BEDTIME [facility] Last Admin: 11/25/20 22:04 Dose: 60 mg Documented by: JUAN ANTONIO Metoprolol Succinate (Metoprolol Succinate Er 12.5 Mg Halftab.Er.24h) 12.5 mg PO BID [facility]; Protocol Last Admin: 11/25/20 09:34 Dose: Not Given Documented by: TRACY Non-Admin Reason: Patient Refused Morphine Sulfate (Morphine Sulfate 4 Mg/Ml Cartridge) 4 mg IVPUSH Q4H PRN; Protocol PRN Reason: Pain, Severe (Pain Scale 7-10) Multivitamins/Vitamin C (Multivitamin Tablet) 1 tab PO DAILY [facility] Last Admin: 11/26/20 08:49 Dose: 1 tab Documented by: SOTERO Ondansetron HCl (Ondansetron Hcl 4 Mg/2 Ml Vial) 4 mg IVPUSH Q8H PRN PRN Reason: Nausea and Vomiting Last Admin: 11/25/20 22:40 Dose: 4 mg Documented by: JUAN ANTONIO Sodium Chloride (0.9 % Sodium Chloride Flush 3 Ml Syringe) 3 ml IVFLUSH QSHIFT [facility] Last Admin: 11/26/20 08:49 Dose: 3 ml Documented by: SOTERO Spironolactone (Spironolactone 25 Mg Tablet) 50 mg PO DAILY [facility]; Protocol Last Admin: 11/25/20 09:34 Dose: Not Given Documented by: TRACY Non-Admin Reason: Patient Refused Zolpidem Tartrate (Zolpidem Tartrate 5 Mg Tablet) 5 mg PO BEDTIME PRN PRN Reason: insomnia Last Admin: 11/25/20 22:35 Dose: 5 mg Documented by: JUAN ANTONIO Labs CBC & Chem 7: 11/26/20 04:48 11/26/20 04:48 Labs: Laboratory Results - last 24 hr 11/25/20 11/25/20 11/26/20 17:01 20:56 04:48 MCV 87.0 MCH 28.4 MCHC 32.6 RDW 12.4 Plt Count 384 MPV 10.3 Immature Gran % (Auto) 0.4 Neut % (Auto) 49.2 Lymph % (Auto) 37.6 [place] % (Auto) 8.1 Eos % (Auto) 3.9 Baso % (Auto) 0.8 Lymph # (Auto) 3.0 [place] # (Auto) 0.6 Eos # (Auto) 0.3 Baso # (Auto) 0.1 Abs Immat Gran (auto) 0.03 Absolute Neuts (auto) 3.9 Absolute Nucleated RBC 0.000 Nucleated RBC % (auto) 0.0 Anion Gap Estim Creat Clear Calc Estimated GFR POC Glucose 133 H 101 Random Glucose Calcium 11/26/20 11/26/20 11/26/20 04:48 07:31 11:36 MCV MCH MCHC RDW Plt Count MPV Immature Gran % (Auto) Neut % (Auto) Lymph % (Auto) [place] % (Auto) Eos % (Auto) Baso % (Auto) Lymph # (Auto) [place] # (Auto) Eos # (Auto) Baso # (Auto) Abs Immat Gran (auto) Absolute Neuts (auto) Absolute Nucleated RBC Nucleated RBC % (auto) Anion Gap 11 L Estim Creat Clear Calc 77.6 Estimated GFR > 60 POC Glucose 77 86 Random Glucose 92 Calcium 9.4 Microbiology Microbiology Results: Microbiology 11/25/20 03:19 Blood Culture - Preliminary Blood - Venous No growth after 24 hours. 11/25/20 03:18 Blood Culture - Preliminary Blood - Venous No growth after 24 hours. Assessment and Plan (1) Bacteremia: Status: Acute Assessment and Plan: 35-year-old female with past medical history of POTS, asthma, type 2 diabetes who presents to the hospital with complaints of right flank pain, in failed outpatient therapy for UTI 1. UTI: E coli - failed 2 rounds of outpatient antibiotic therapy with Macrobid as well as cefexime -id consult appreciated. Will continue ceftriaxone at this time 2. pyelonephritis: By CT. Treatment as per 1. 3. Bacteremia - blood and urine cultures both positive for E coli pansensitive - continue ceftriaxone as ordered. Switch to p.o. after 3-5 days if afebrile 4.DMII: low-dose sliding cm - diabetic diet 5. COPD/asthma - continue home inhaler DVT prophylaxis: Lovenox Quality Stroke Does the patient have a stroke diagnosis?: No VTE Prior VTE?: No VTE Risk Level:: Medical - moderate - high VTE Device Contraindication: Treatment Not Indicated VTE Drug Contraindication: N/A - Med Ordered
[2020-11-26 16:36] LABS: Glucose, Whole Blood 75 mg/dL (60-115)
[2020-11-26 17:28] LABS: Alanine Aminotransferase 18 U/L (0-31); Albumin Level 4.3 g/dL (3.5-5.0); Alkaline Phosphatase 62 U/L (39-117); Anion Gap 13 (12-20); Aspartate Amino Transferase 17 U/L (5-31); Bilirubin Total 0.2 mg/dL (0.0-1.0); Blood Urea Nitrogen 12 mg/dL (9-16); Calcium 9.6 mg/dL (8.4-10.2); Carbon Dioxide 25 mmol/L (22-29); Chloride 105 mmol/L (96-108); Creatinine Clr Calc Pharmacy 67.6; Estimated Glomerular Filt Rate > 60; Glucose Fasting 86 mg/dL (60-99); Sodium 139 mmol/L (135-145); Total Protein 7.6 g/dL (6.5-8.0)
[2020-11-26 19:46] VITALS: BP 123/67; PULSE 71; RESP 16; TEMP 36.4; O2SAT 98
[2020-11-26] MEDS: Lurasidone HCl 20 MG TABLET 60 MG PO (21:25)
[2020-11-26 21:29] LABS: Glucose, Whole Blood 92 mg/dL (60-115)
[2020-11-26] MEDS: Zolpidem Tartrate 5 MG TABLET PO (22:47)
[2020-11-27] VITALS (8 sets, daily range): BP systolic 94–135; BP diastolic 50–93; PULSE 61–100; RESP 16–18; TEMP 36–36.7; O2SAT 94–100
[2020-11-27 05:26] LABS: MANUAL DIFF FLAG NO
[2020-11-27 05:29] LABS: Basophils Absolute Auto 0.1 X10*3/uL (0.0-0.2); Basophils Percent Auto 0.7 % (0-2); Eosinophils Absolute Auto 0.3 X10*3/uL (0.0-0.4); Eosinophils Percent Auto 3.3 % (0-4); Hematocrit 39.8 % (37-47); Hemoglobin 13.3 g/dl (12.0-16.0); Imm Gran Abs Auto 0.03 X10*3/uL (0.00-0.03); Imm Gran Pct Auto 0.4 % (0.0-0.4); Lymphocytes Absolute Auto 2.9 X10*3/uL (1.2-4.9); Lymphocytes Percent Auto 35.8 % (20-40); Mean Corpuscular HGB Conc 33.4 g/dl (31.0-35.0); Mean Corpuscular Hemoglobin 29.1 pg (27.0-33.0); Mean Corpuscular Volume 87.1 fL (80-98); Mean Platelet Volume 9.9 fL (9.4-12.3); Monocytes Absolute Auto 0.6 X10*3/uL (0.1-1.2); Monocytes Percent Auto 7.2 % (2-11); Neutrophils Absolute Auto 4.3 X10*3/uL (2.0-8.3); Neutrophils Percent Auto 52.6 % (45-73); Platelet Count 365 X10*3/uL (160-400); Red Blood Count 4.57 X10*6/uL (4.20-5.50); Red Cell Distribution Width 12.5 % (11.0-16.0); White Blood Count 8.1 X10*3/uL (4.8-10.8)
[2020-11-27] MEDS: Enoxaparin Sodium 40 MG/0.4 ML SYRINGE SUBCUT (05:47)
[2020-11-27] MEDS: cefTRIAXone sodium 1 GM in 0.9 % Sodium Chloride 50 ML IV (05:48)
[2020-11-27 07:51] LABS: Glucose, Whole Blood 87 mg/dL (60-115)
[2020-11-27] MEDS: Fluticasone/Vilanterol 200/25 BLST.W.DEV 1 PUFF INHALE (08:58)
[2020-11-27] MEDS: Multivitamin TABLET 1 TAB PO (10:03)
[2020-11-27] MEDS: Divalproex Sodium ER 500 MG TAB.ER.24H PO ×2 (10:03→21:27)
[2020-11-27] MEDS: Cyanocobalamin (Vitamin B-12) 1,000 MCG TABLET 1000 MCG PO (10:03)
[2020-11-27] MEDS: 0.9 % Sodium Chloride Flush 3 ML SYRINGE IVFLUSH ×2 (10:04→21:28)
--- NOTE | 2020-11-27 10:17 | HO.PM.IMPN ---
Subjective Subjective Date of Service: 11/27/20 Interval History: Feels better this a.m.. Slept well. Nausea resolved taking small amounts p.o. Review of Systems Denies chest pain Denies shortness of breath Denies nausea vomiting diarrhea Physical Exam Vital Signs: Vital Signs: Last Vital Signs Temp 96.8 F 11/27/20 07:51 Pulse 61 11/27/20 07:51 Resp 18 11/27/20 07:51 BP 94/50 L 11/27/20 07:51 Pulse Ox 98 11/27/20 07:51 Body Mass Index 22.4 Const: Other: No acute distress HENMT: Other: Membranes moist; oropharynx clear Resp: Other: Clear to auscultation. No rales rhonchi wheezes Cardio: Other: No S4 positive S1-S2; no S3 without murmurs rubs or gallops GI: Other: Soft nontender nondistended normoactive bowel sounds Neuro: Other: Age-appropriate nonfocal Extrem: Other: No edema bilaterally Objective Data Active Medications Acetaminophen (Acetaminophen 325 Mg Tablet) 650 mg PO Q6H PRN PRN Reason: Pain, Mild (Pain Scale 1-3) Last Admin: 11/25/20 09:17 Dose: 650 mg Documented by: TRACY Clonazepam (Clonazepam 1 Mg Tablet) 1 mg PO DAILY PRN PRN Reason: Anxiety Last Admin: 11/25/20 20:53 Dose: 1 mg Documented by: RAMO Cyanocobalamin (Cyanocobalamin (Vitamin B-12) 1,000 Mcg Tablet) 1,000 mcg PO DAILY [facility] Last Admin: 11/27/20 10:03 Dose: 1,000 mcg Documented by: SOTERO Dextrose (Dextrose 50 % 25 Gm/50 Ml Vial) 25 gm IVPUSH Q15M PRN; Protocol PRN Reason: per Hypoglycemia Standing Ord. Divalproex Sodium (Divalproex Sodium Er 500 Mg Tab.Er.24h) 500 mg PO BID [facility] Last Admin: 11/27/20 10:03 Dose: 500 mg Documented by: SOTERO Docusate Sodium (Docusate Sodium 100 Mg Capsule) 100 mg PO DAILY PRN PRN Reason: Constipation Enoxaparin Sodium (Enoxaparin Sodium 40 Mg/0.4 Ml Syringe) 40 mg SUBCUT Q24H [facility] Last Admin: 11/27/20 05:47 Dose: 40 mg Documented by: JUAN ANTONIO Fluticasone/Vilanterol (Fluticasone/Vilanterol 200/25 Blst.W.Dev) 1 puff INHALE DAILY [facility] Last Admin: 11/27/20 08:58 Dose: 1 puff Documented by: STORMY Glucose (Glucose Gel 15 Gm Gel..Gram.) 15 gm PO Q15M PRN; Protocol PRN Reason: per Hypoglycemia Standing Ord. Ceftriaxone Sodium 1 gm/ (Sodium Chloride) 50 mls @ 100 mls/hr IV Q24H [facility] Last Infusion: 11/27/20 06:35 Dose: 0 mls/hr Documented by: JUAN ANTONIO Insulin Human Lispro (Insulin Lispro 100 Unit/Ml 3 Ml Vial) 0 unit SUBCUT QIDACHS [facility]; Protocol Last Admin: 11/27/20 08:11 Dose: Not Given Documented by: SOTERO Non-Admin Reason: No Insulin Coverage Levalbuterol HCl (Levalbuterol Hcl 1.25 Mg/0.5 Ml Vial.Neb) 1.25 mg INHALE Q6H PRN PRN Reason: Shortness of Breath Lurasidone HCl (Lurasidone Hcl 20 Mg Tablet) 60 mg PO BEDTIME [facility] Last Admin: 11/26/20 21:25 Dose: 60 mg Documented by: JUAN ANTONIO Metoprolol Succinate (Metoprolol Succinate Er 12.5 Mg Halftab.Er.24h) 12.5 mg PO BID [facility]; Protocol Last Admin: 11/25/20 09:34 Dose: Not Given Documented by: TRACY Non-Admin Reason: Patient Refused Morphine Sulfate (Morphine Sulfate 4 Mg/Ml Cartridge) 4 mg IVPUSH Q4H PRN; Protocol PRN Reason: Pain, Severe (Pain Scale 7-10) Multivitamins/Vitamin C (Multivitamin Tablet) 1 tab PO DAILY [facility] Last Admin: 11/27/20 10:03 Dose: 1 tab Documented by: SOTERO Ondansetron HCl (Ondansetron Hcl 4 Mg/2 Ml Vial) 4 mg IVPUSH Q8H PRN PRN Reason: Nausea and Vomiting Last Admin: 11/25/20 22:40 Dose: 4 mg Documented by: JUAN ANTONIO Sodium Chloride (0.9 % Sodium Chloride Flush 3 Ml Syringe) 3 ml IVFLUSH QSHIFT [facility] Last Admin: 11/27/20 10:04 Dose: 3 ml Documented by: SOTERO Spironolactone (Spironolactone 25 Mg Tablet) 50 mg PO DAILY [facility]; Protocol Last Admin: 11/25/20 09:34 Dose: Not Given Documented by: TRACY Non-Admin Reason: Patient Refused Zolpidem Tartrate (Zolpidem Tartrate 5 Mg Tablet) 5 mg PO BEDTIME PRN PRN Reason: insomnia Last Admin: 11/26/20 22:47 Dose: 5 mg Documented by: JUAN ANTONIO Labs CBC & Chem 7: 11/27/20 05:17 11/26/20 16:45 Labs: Laboratory Results - last 24 hr 11/26/20 11/26/20 11/26/20 11:36 16:28 16:45 MCV MCH MCHC RDW Plt Count MPV Immature Gran % (Auto) Neut % (Auto) Lymph % (Auto) [place] % (Auto) Eos % (Auto) Baso % (Auto) Lymph # (Auto) [place] # (Auto) Eos # (Auto) Baso # (Auto) Abs Immat Gran (auto) Absolute Neuts (auto) Absolute Nucleated RBC Nucleated RBC % (auto) Anion Gap 13 Estim Creat Clear Calc 67.6 Estimated GFR > 60 POC Glucose 86 75 Fasting Glucose 86 Calcium 9.6 Total Bilirubin 0.2 AST 17 ALT 18 Alkaline Phosphatase 62 Total Protein 7.6 Albumin 4.3 11/26/20 11/27/20 11/27/20 20:51 05:17 07:32 MCV 87.1 MCH 29.1 MCHC 33.4 RDW 12.5 Plt Count 365 MPV 9.9 Immature Gran % (Auto) 0.4 Neut % (Auto) 52.6 Lymph % (Auto) 35.8 [place] % (Auto) 7.2 Eos % (Auto) 3.3 Baso % (Auto) 0.7 Lymph # (Auto) 2.9 [place] # (Auto) 0.6 Eos # (Auto) 0.3 Baso # (Auto) 0.1 Abs Immat Gran (auto) 0.03 Absolute Neuts (auto) 4.3 Absolute Nucleated RBC 0.000 Nucleated RBC % (auto) 0.0 Anion Gap Estim Creat Clear Calc Estimated GFR POC Glucose 92 87 Fasting Glucose Calcium Total Bilirubin AST ALT Alkaline Phosphatase Total Protein Albumin Microbiology Microbiology Results: Microbiology 11/25/20 03:19 Blood Culture - Preliminary Blood - Venous No growth after 48 hours. 11/25/20 03:18 Blood Culture - Preliminary Blood - Venous No growth after 48 hours. Assessment and Plan (1) Bacteremia: Status: Acute (2) UTI (urinary tract infection): Status: Acute Assessment and Plan: 35-year-old female with past medical history of POTS, asthma, type 2 diabetes who presents to the hospital with complaints of right flank pain, in failed outpatient therapy for UTI 1. UTI: E coli - failed 2 rounds of outpatient antibiotic therapy with Macrobid as well as cefexime -id consult appreciated. Will continue ceftriaxone at this time.. Switch to oral in a.m. 2. pyelonephritis: By CT. Treatment as per 1. 3. Bacteremia - blood and urine cultures(11/20/20) both positive for E coli pansensitive; repeat cultures drawn 11/25/20-after 48 hours - continue ceftriaxone as ordered. Switch to p.o. after 3-5 days if afebrile 4.DMII: low-dose sliding cm - diabetic diet 5. COPD/asthma - continue home inhaler DVT prophylaxis: Lovenox Quality Stroke Does the patient have a stroke diagnosis?: No VTE Prior VTE?: No VTE Risk Level:: Medical - moderate - high VTE Device Contraindication: Treatment Not Indicated VTE Drug Contraindication: N/A - Med Ordered
[2020-11-27 11:23] LABS: Glucose, Whole Blood 91 mg/dL (60-115)
--- NOTE | 2020-11-27 12:40 | MHC.CM.PN ---
Per ROUNDS discussion, Patient is not yet medically cleared for dc (IV Ceftriaxone). Home is the goal for dc and CM will follow for possible need to adjust the dc plan.
[2020-11-27 16:26] LABS: Glucose, Whole Blood 92 mg/dL (60-115)
[2020-11-27 19:59] LABS: Glucose, Whole Blood 103 mg/dL (60-115)
[2020-11-27] MEDS: Lurasidone HCl 20 MG TABLET 60 MG PO (21:27)
[2020-11-27] MEDS: Zolpidem Tartrate 5 MG TABLET PO (22:46)
[2020-11-27] MEDS: clonazePAM 1 MG TABLET PO (22:48)
[2020-11-28 04:00] VITALS: BP 106/58; PULSE 73; RESP 17; TEMP 36.3; O2SAT 97
[2020-11-28] MEDS: cefTRIAXone sodium 1 GM in 0.9 % Sodium Chloride 50 ML IV (06:40)
[2020-11-28] MEDS: Enoxaparin Sodium 40 MG/0.4 ML SYRINGE SUBCUT (06:40)
[2020-11-28 07:30] VITALS: BP 103/65; PULSE 69; RESP 20; TEMP 36.8; O2SAT 98
[2020-11-28 07:40] LABS: Glucose, Whole Blood 66 mg/dL (60-115)
[2020-11-28] MEDS: Divalproex Sodium ER 500 MG TAB.ER.24H PO (09:16)
[2020-11-28] MEDS: Multivitamin TABLET 1 TAB PO (09:16)
[2020-11-28] MEDS: Cyanocobalamin (Vitamin B-12) 1,000 MCG TABLET 1000 MCG PO (09:16)
[2020-11-28 11:30] VITALS: BP 117/78; PULSE 90; RESP 18; TEMP 36.7; O2SAT 99
--- NOTE | 2020-11-28 11:30 | MHC.CM.PN ---
PATIENT IS EXPECTED TO RETURN HOME TODAY WITH NO SERVICES. IMM 11/27 IN CHART.
--- NOTE | 2020-11-28 11:32 | PM.DS ---
DS: Providers Provider Date of Service: 11/28/20 Date of admission: 11/25/20 05:50 Date of discharge: 11/28/20 Primary care physician: Natalie Jones Consults: 11/25/20 08:24 Consult to Infectious Diseases Routine Consulting Provider: Azucena Smith Reason for consultation: bacteremia...duration of ABTX Has provider been notified: No DS: Diagnosis Discharge Diagnosis (1) Bacteremia: Status: Acute (2) UTI (urinary tract infection): Status: Acute DS: Summary Hospital Course Hospital Course: 35-year-old female with past medical history of diabetes, POTS, asthma with COPD who initially presented to the hospital on the 18 of November with complaints of left flank pain and at that time was diagnosed with UTI and sent home on Macrobid.? At that time she did not get any better and therefore returned to the hospital on 11/20 with similar complaints.? At that time patient had worsening right-sided flank and abdominal pain and was then switched to cefuroxime for 7 days.? Patient cultures drawn on the 20 of November grew E coli including blood and urine cultures and therefore she was called to the hospital today.? At this time patient reports that she did not get better, she continues to have right-sided flank pain, she continues to have chills, fever of 101-102 daily, feeling fatigue and overall very sick.? She denies having any chest pain, no shortness of breath, she has malodorous urine with no dysuria, urgency, or frequency.? She denies having any lower extremity edema. Hospital course: Patient was admitted on IV ceftriaxone. Cultures grew out E coli sensitive to same. Over the course of the next 48 hours she continued to improve and on the day of discharge she is able to tolerate diet and has been afebrile for 24 hours. States she feels well and wishes to go home. Per ID recommendation will sent home on Levaquin 500 daily for 7 days. Status at Discharge Cognitive/behavioral status at discharge: Improved Time Spent with Patient Time attestation: Total time spent providing and/or coordinating discharge services: Discharge coordination time: Greater than 30 minutes Quality: Stroke Does the patient have a stroke diagnosis?: No Physical Exam Vital Signs: Vital Signs: Last Vital Signs Temp 98.3 F 11/28/20 07:30 Pulse 69 11/28/20 07:30 Resp 20 11/28/20 07:30 BP 103/65 11/28/20 07:30 Pulse Ox 98 11/28/20 07:30 Body Mass Index 22.4 Const: Other: Awake alert oriented x3 no acute distress Resp: Other: Clear for to auscultation bilaterally with good air entry to the bases no rales rhonchi wheezes Cardio: Other: No S4 positive S1-S2 no S3 without murmur rubs or gallops GI: Other: Soft nontender nondistended with normal active bowel sounds; no appreciable hepato splenomegaly Extrem: Other: No edema bilaterally DS: Data Data Completed and Pending Labs on day of discharge: Laboratory Results - last 24 hr 11/27/20 11/27/20 11/28/20 16:16 19:50 07:32 POC Glucose 92 103 66 Preliminary micro results at discharge 11/25/20 03:19 Blood Culture - Preliminary Blood - Venous No growth after 48 hours. 11/25/20 03:18 Blood Culture - Preliminary Blood - Venous No growth after 48 hours. Discharge Plan Discharge Patient Disposition: Home, Self-Care Discharge Diagnosis: Bactermia Referrals: Natalie Jones [Primary Care Provider] - 12/16/20 2:00 pm (You have a follow up appointment scheduled on December 16 at 2:00 pm. Please call your doctor's office if you need to reschedule. ) Discharge Medications: New levofloxacin 500 mg tablet 500 mg PO DAILY 7 Days Qty: 7 RF: 0 Continued clonazepam 1 mg tablet 1 mg PO DAILY PRN (Reason: Anxiety) RF: 0 divalproex [Depakote ER] 500 mg tablet extended release 24 hr 1 tab PO BID RF: 0 spironolactone 50 mg tablet 1 tab PO DAILY RF: 0 multivitamin Tablet 1 tab PO DAILY RF: 0 cyanocobalamin (vitamin B-12) 1,000 mcg Tablet 1,000 mcg PO DAILY RF: 0 fluticasone propion-salmeterol [Advair Diskus] 500-50 mcg/dose blister with device 1 inh inhalation BID Qty: 60 RF: 0 metoprolol succinate 25 mg tablet extended release 24 hr 12.5 mg PO BID Qty: 30 RF: 0 Latuda 60 mg tablet 1 tab PO QPM RF: 0 Discontinued zolpidem 10 mg tablet 10 mg PO BEDTIME PRN (Reason: insomnia) RF: 0 levalbuterol tartrate 45 mcg/actuation HFA aerosol inhaler 2 puff inhalation Q4-6H PRN (Reason: shortness of breath or wheezing) Qty: 15 RF: 0 cefixime 400 mg capsule 400 mg PO DAILY 7 Days Qty: 7 RF: 0 ondansetron 4 mg tablet,disintegrating 4 mg PO Q8H PRN (Reason: nausea and vomiting) Qty: 10 RF: 0 Discharge Orders: Discharge Order (Routine); Ordered 11/28/20 Ordered By: Satya Sr Diet: advance to usual diet Activity on Discharge: As tolerated Stand Alone Forms: Patient Portal Discharge page Care Plan Goals: Return to normal function Health Concerns: Recurrent UTI Plan of Treatment: Follow-up with PCP Assessment: Improved
[2020-11-28 11:44] LABS: Glucose, Whole Blood 101 mg/dL (60-115)
== END 2020-11-28 12:00 | disposition home or self-care (01) | DRG 690 ==
LOC: HO.ED 11-25 05:37 → HO.EDOVER 11-25 06:02 → HO.S3 11-25 19:34
PROVIDERS: Admitting Provider Internal Medicine; Emergency Provider Emergency Medicine Emergency Medical Services; PCP Nurse Practitioner Family; Visit Provider Hospitalist
DX: N12 Tubulo-interstitial nephritis, not specified as acute or chronic (principal); R78.81 Bacteremia; E11.9 Type 2 diabetes mellitus without complications; I49.8 Other specified cardiac arrhythmias; B96.20 Unspecified Escherichia coli [E. coli] as the cause of diseases classified elsewhere; Z20.822 Contact with and (suspected) exposure to COVID-19; Z87.442 Personal history of urinary calculi; Z79.51 Long term (current) use of inhaled steroids; Z79.899 Other long term (current) drug therapy
CPT/HCPCS: 36415; 74177; 80048; 80053; 81003; 82947; 83605; 83690; 85025; 86140; 87040; 87635; 99285; J0696; J1650; J1956; J2270; J2405; Q9967

== ENCOUNTER 2020-12-02 16:19 | Outpatient (REF) | payer OTHER, SELFPAY ==
[2020-12-02 16:48] LABS: MANUAL DIFF FLAG NO
[2020-12-02 17:40] LABS: Basophils Absolute Auto 0.1 X10*3/uL (0.0-0.2); Basophils Percent Auto 0.8 % (0-2); Eosinophils Absolute Auto 0.3 X10*3/uL (0.0-0.4); Eosinophils Percent Auto 2.6 % (0-4); Hematocrit 41.1 % (37-47); Hemoglobin 13.6 g/dl (12.0-16.0); Imm Gran Abs Auto 0.04 X10*3/uL (0.00-0.03); Imm Gran Pct Auto 0.4 % (0.0-0.4); Lymphocytes Absolute Auto 1.8 X10*3/uL (1.2-4.9); Lymphocytes Percent Auto 18.3 % (20-40); Mean Corpuscular HGB Conc 33.1 g/dl (31.0-35.0); Mean Corpuscular Volume 87.6 fL (80-98); Mean Platelet Volume 10.3 fL (9.4-12.3); Monocytes Absolute Auto 0.6 X10*3/uL (0.1-1.2); Monocytes Percent Auto 5.7 % (2-11); Neutrophils Absolute Auto 7.2 X10*3/uL (2.0-8.3); Neutrophils Percent Auto 72.2 % (45-73); Platelet Count 430 X10*3/uL (160-400); Red Blood Count 4.69 X10*6/uL (4.20-5.50); Red Cell Distribution Width 12.7 % (11.0-16.0)
[2020-12-02 18:01] LABS: Alanine Aminotransferase 21 U/L (0-31); Anion Gap 12 (12-20); Aspartate Amino Transferase 20 U/L (5-31); Carbon Dioxide 27 mmol/L (22-29); Chloride 102 mmol/L (96-108); Estimated Glomerular Filt Rate > 60; Potassium 4.2 mmol/L (3.3-5.1); Sodium 137 mmol/L (135-145)
[2020-12-02 18:20] LABS: Syphilis Screen Nonreactive (Nonreactive)
[2020-12-03 08:32] LABS: HBsAGNum1 0.66 S/CO (0.00-0.99); Hepatitis B Surface Antigen Negative (Negative); ~HepC Num1 0.06 S/CO (0.00-0.79); ~Hepatitis C Antibody Nonreactive (Nonreactive)
== END 2020-12-02 16:20 | disposition home or self-care (01) ==
LOC: HO.LAB 16:19
PROVIDERS: Visit Provider Internal Medicine Infectious Disease
DX: Z01.818 Encounter for other preprocedural examination (principal); N39.0 Urinary tract infection, site not specified
CPT/HCPCS: 36415; 80051; 82565; 84450; 84460; 85025; 86780; 86803; 87040; 87340

== ENCOUNTER 2021-02-28 04:50 | Emergency (ER) | payer OTHER, SELFPAY ==
[2021-02-28 04:57] VITALS: BP 108/67; PULSE 104; RESP 18; TEMP 36.4; O2SAT 99; BMI 23.0
--- NOTE | 2021-02-28 05:15 | PC.NURSE ---
Ua/Da collected and sent.
[2021-02-28 05:16] LABS: Appearance Urine CLEAR; Color Urine YELLOW; Glucose Urine UA NEG (NEG); Leukocyte Esterase Urine NEG (NEG); Nitrite Urine NEG (NEG); PH 5.5 (5.0-8.0); Specific Gravity - Urine >= 1.030 (1.005-1.025); UACC Culture Trigger NO; Urine Blood 1+ (NEG); Urine Ketones 5 MG/DL (NEG); Urine Protein NEG (NEG-TRACE)
--- NOTE | 2021-02-28 05:17 | PC.NURSE ---
Pt a&o, no sob or chest pain. pt able to communicate appropriately, no signs that pt is under the influence at this time. Pt able to ambulate with a steady gait.
[2021-02-28 05:25] LABS: Bacteria Urine TRACE /LPF; Hyaline Casts Urine 0-2 /LPF; Mucus Urine 3+ /LPF; Squamous Epithelial Cell Urine 2+ /LPF; WBC Urine 0-2 /HPF (0-4)
[2021-02-28 05:26] LABS: Calcium Oxalate Crystals Urine 1+ /LPF
[2021-02-28 05:31] LABS: Amphetamine Screen Urine Not Detected (Not Detect); Barbiturates, Urine Not Detected (Not Detect); Benzodiazepines Screen Urine Not Detected (Not Detect); Cannabinoid Screen Urine Not Detected (Not Detect); Cocaine Screen Urine Not Detected (Not Detect); Fentanyl, urine Not Detected (Not Detect); Opiate Screen Urine Not Detected (Not Detect); Phencyclidine Screen Urine Not Detected (Not Detect)
== END 2021-02-28 09:25 | disposition left against medical advice (07) ==
PROVIDERS: Emergency Provider Emergency Medicine
DX: Z03.6 Encounter for observation for suspected toxic effect from ingested substance ruled out (principal)
CPT/HCPCS: 80307; 81001; 99283

== ENCOUNTER 2021-05-23 17:17 | Inpatient (IN) | payer OTHER, SELFPAY ==
--- NOTE | ~2021-05-23 | XR_ITS ---
EXAMINATION: XR CHEST CLINICAL INFORMATION: Shortness of breath COMPARISON: 11/20/2020 TECHNIQUE: Frontal view of the chest was obtained. FINDINGS: No significant abnormality is noted involving the heart, lungs, mediastinum, bony thorax or soft tissues. XR/XR chest 1V IMPRESSION: Unremarkable examination.
[2021-05-23 17:42] VITALS: BP 134/71; PULSE 100; RESP 18; TEMP 36.1; O2SAT 98; BMI 22.6
[2021-05-23 18:46] LABS: Strep A Nucleic Acid Negative (Negative)
[2021-05-23 18:47] LABS: COVID-19 Test Negative (Negative); IDNOW Serial# 16C4AD1C
--- NOTE | 2021-05-23 22:46 | ED_ITS ---
HPI - SOB/Dyspnea General Chief Complaint: Dyspnea Stated Complaint: SOB dizziness Time Seen by Provider: 05/23/21 18:13 Source: patient Mode of arrival: ambulatory Limitations: no limitations History of Present Illness HPI Narrative: 35-year-old female medical history significant for asthma,DM, POTS, COPD, hyperthyroidism, presents with complaints of body aches, pains, shortness of breath and chest pressure x5 days. Patient tells me that this came on suddenly and has been progressively worsening over the past 5 days. Patient tells me that she feels short of breath particularly with exertion she tells me this feels like her typical asthma exacerbation. She has tried taking inhalers at home with little to no relief. She also reports substernal chest pressure nonradiating. She tells me that when she begins getting very short of breath she feels dizzy and has palpitations. She denies headaches, vision changes, abdominal pain, nausea vomiting. MD elicited complaint: shortness of breath Pertinent past history: COPD, asthma and diabetes Onset (ago): day(s) (5) Timing: constant Severity: moderate Exacerbating factors: nothing Relieving factors: nothing Known history of: COPD, asthma and diabetes Associated symptoms: chest pain Treatment prior to arrival: none Related Data Home Medications Medication Instructions Recorded Confirmed clonazepam 1 mg tablet 1 mg PO DAILY PRN 12/13/19 11/25/20 cyanocobalamin (vitamin B-12) 1,000 mcg PO DAILY 07/10/20 11/25/20 1,000 mcg tablet divalproex 500 mg tablet,extended 1 tab PO BID 07/10/20 11/25/20 release 24 hr (Depakote ER) multivitamin 1 tab PO DAILY 07/10/20 11/25/20 spironolactone 50 mg tablet 1 tab PO DAILY 07/10/20 11/25/20 lurasidone 60 mg tablet (Latuda) 1 tab PO QPM 11/25/20 11/25/20 Previous Rx's Medication Instructions Recorded fluticasone 500 mcg-salmeterol 50 1 inh INHALATION BID #60 ea 07/12/20 mcg/dose blistr powdr for inhalation (Advair Diskus) metoprolol succinate 25 mg 12.5 mg PO BID #30 tab 07/12/20 tablet,extended release 24 hr levofloxacin 500 mg tablet 500 mg PO DAILY 7 Days #7 tab 11/28/20 albuterol sulfate 2.5 mg (3 mL) INHALATION Q6H #75 ml 05/24/21 albuterol sulfate 90 mcg/actuation 2 inh INHALATION Q4-6H PRN #1 ea 05/24/21 breath activated powder inhaler prednisone 20 mg tablet 20 mg PO DAILY 5 Days #5 tab 05/24/21 Allergies Allergy/AdvReac Type Severity Reaction Status Date / Time somatropin [SOMATROPIN] Allergy Unknown UNKNOWN Verified 05/23/21 17:48 amitriptyline [AMITRIPTYLINE] AdvReac Intermediate NAUSEA, Verified 05/23/21 17:48 DIZZINESS albuterol [ALBUTEROL] AdvReac Mild TACHYCARDIA Verified 05/23/21 17:48 esomeprazole [From NEXIUM] AdvReac Mild TACHYCARDIA Verified 05/23/21 17:48 Review of Systems Review of Systems: Constitutional : No Weight loss, No Fever, No Chills, + Fat igue, + Malaise ENT/Mouth : No sore throat, No Rhinorrhea Eyes: No Eye Pain, No Swelling, No Redness Cardiovascular : No Chest Pain, + SOB, No Dyspnea on Exertion, No Orthopnea, No Edema, No Palpitations Respiratory : No Cough, No Sputum, No Wheezing Gastrointestinal : No Nausea, No Vomiting, No Diarrhea, No Constipation, No abdominal Pain, No Hematochezia, No Melena Genitourinary : No Dysuria, No Urinary Frequency, No Hematuria, Musculoskeletal : No joint pain, No Myalgias, No Joint Swelling Skin : No Skin Lesions, No rash Neuro : No Weakness, No Numbness, No Dizziness, No Headache Psych : No Anxiety/Panic, No Depression All other systems reviewed and are negative Yes all other systems are reviewed and are negative [facility] Past Medical History Attestation statement: The following information was validated with the patient. Source: old records reviewed and nursing notes reviewed Medical History Asthma with COPD with exacerbation Bipolar 1 disorder Carpal tunnel syndrome COPD (chronic obstructive pulmonary disease) Diabetes mellitus Family history of COPD (chronic obstructive pulmonary disease) Fibromyalgia History of MRSA infection Inappropriate sinus node tachycardia Kidney stones Polycystic ovarian disease Postural orthostatic tachycardia syndrome POTS (postural orthostatic tachycardia syndrome) Schizoaffective disorder Subclinical hyperthyroidism SVT (supraventricular tachycardia) UTI (urinary tract infection) Surgical History History of renal stent History of tubal ligation Hx of abdominoplasty Hx of lithotripsy Tubal ligation status Family History Family History Other COPD (chronic obstructive pulmonary disease) Social History Social History Household Members: Children Housing: Apartment Do you presently have visiting nurse or other home services: No Alcohol intake: never Patient Tobacco Use Status: Never used Tobacco Second Hand Smoke Exposure: No Advance Directives: No Advance Directives Information Provided: No Patient : No service: No Current occupational status: unemployed Physical Exam Vital Signs: Vital Signs: Last Vital Signs Temp 97.7 F 05/24/21 00:00 Pulse 92 05/24/21 00:46 Resp 18 05/24/21 00:46 BP 142/82 H 05/24/21 00:00 Pulse Ox 95 05/24/21 00:00 BMI result Body Mass Index 22.6 VSS Appearance: Alert.? Oriented X3.? No acute distress.? Head: Normocephalic, atraumatic, no step-offs or deformities Eyes: Pupils equal, round and reactive to light.? ENT: Pharynx normal.? Neck: Normal inspection.? Neck supple.? CVS: Normal heart rate and rhythm.? Pulses normal.? Respiratory: No respiratory distress.? Diminished breath sounds bilaterally with wheezing Abdomen: Soft and nontender.? Skin: Skin warm and dry.? Normal skin color.? Normal skin turgor.? Extremities: No lower extremity edema.? No calf ttp. 5/5 strength to bilateral upper and lower extremities Back: No midline tenderness, no C-spine tenderness, full range of motion, no CVA tenderness bilaterally Neuro: Oriented X 3.? No motor deficit.? No sensory deficit. CN 2-12 intact Course Reevaluation(s) Reevaluation #1: CBC appears to be at patient's baseline. Platelets elevated however if been elevated in the past. Chemistry With no acute electrolyte abnormalities. Influenza negative, COVID negative, strep negative. Patient notes some improvem ent after albuterol treatment however there is still diminished breath sounds and wheezing noted on my exam. Solu-Medrol and other treatment will be given. Time: 00:38 Reevaluation #2: Troponin negative EKG nonischemic. Unlikely ACS. Time: 00:45 Reevaluation #3: Little improvement after nebulizing treatments solumderol and mag. Will admit patient for acute asthma exacerbation. MDM - SOB/Dyspnea MDM Narrative Medical decision making narrative: 2042 35 yo f presents w/ flu like sx, asthma and cp X5 days PE with diminished breath sounds b/l and faint wheezing. RRR. Abdomen soft nontender non distended. Neuro nonfocal. Negative hector bilaterally Patient saturating well on RA, negative hector, PERC negative unlikley PE Plan- labs, poc, cxr, influenza, covid. Patient will also receive an albuterol tx. Medical Records Attestation: I reviewed the patient's medical records. Lab Data Attestation: I reviewed the patient's lab results. Result diagrams: 05/23/21 23:28 05/23/21 23:28 Labs: Lab Results 05/23/21 05/23/21 05/23/21 Range/Units 18:24 18:24 23:28 WBC (4.8-10.8) X10*3/uL RBC (4.20-5.50) X10*6/uL Hgb (12.0-16.0) g/dl Hct (37.0-47.0) % MCV (80.0-98.0) fL MCH (27.0-33.0) pg MCHC (31.0-35.0) g/dl RDW (11.0-16.0) % Plt Count (160-400) X10*3/uL MPV (9.4-12.3) fL Immature Gran % (Auto) (0.0-0.4) % Neut % (Auto) (45-73) % Lymph % (Auto) (20-40) % Sunflower % (Auto) (2-11) % Eos % (Auto) (0-4) % Baso % (Auto) (0-2) % Lymph # (Auto) (1.2-4.9) X10*3/uL Sunflower # (Auto) (0.1-1.2) X10*3/uL Eos # (Auto) (0.0-0.4) X10*3/uL Baso # (Auto) (0.0-0.2) X10*3/uL Abs Immat Gran (auto) (0.00-0.03) X10*3/uL Absolute Neuts (auto) (2.0-8.3) x10*3/uL Absolute Nucleated RBC (0.0-0.012) X10*3/uL Nucleated RBC % (auto) (0.0-0.2) /100WBC Sodium (135-145) mmol/L Potassium (3.3-5.1) mmol/L Chloride (96-108) mmol/L Carbon Dioxide (22-29) mmol/L Anion Gap (12-20) BUN (9-16) mg/dL Creatinine (0.5-1.4) mg/dL Estim Creat Clear Calc Estimated GFR POC Glucose (60-115) mg/dL Random Glucose (60-115) mg/dL Calcium (8.4-10.2) mg/dL Total Bilirubin (0.0-1.0) mg/dL AST (5-31) U/L ALT (0-31) U/L Alkaline Phosphatase (39-117) U/L Total Creatine Kinase (26-140) U/L Troponin I High Sens (<3.5-17.0) ng/L Total Protein (6.5-8.0) g/dL Albumin (3.5-5.0) g/dL COVID-19 (LAKHWINDER) Negative (Negative) COVID-19 Clin Com See Note Influenza Type A (RITESH) Negative (Negative) Influenza Type B (RITESH) Negative (Negative) Influenza A & B Note See Note S. pyogenes GrpA RITESH Negative (Negative) 05/23/21 05/23/21 05/23/21 Range/Units 23:28 23:28 23:28 WBC 9.1 (4.8-10.8) X10*3/uL RBC 5.42 (4.20-5.50) X10*6/uL Hgb 15.8 (12.0-16.0) g/dl Hct 48.0 H (37.0-47.0) % MCV 88.6 (80.0-98.0) fL MCH 29.2 (27.0-33.0) pg MCHC 32.9 (31.0-35.0) g/dl RDW 12.9 (11.0-16.0) % Plt Count 418 H (160-400) X10*3/uL MPV 10.0 (9.4-12.3) fL Immature Gran % (Auto) 0.3 (0.0-0.4) % Neut % (Auto) 60.8 (45-73) % Lymph % (Auto) 28.8 (20-40) % Sunflower % (Auto) 5.7 (2-11) % Eos % (Auto) 3.4 (0-4) % Baso % (Auto) 1.0 (0-2) % Lymph # (Auto) 2.6 (1.2-4.9) X10*3/uL Sunflower # (Auto) 0.5 (0.1-1.2) X10*3/uL Eos # (Auto) 0.3 (0.0-0.4) X10*3/uL Baso # (Auto) 0.1 (0.0-0.2) X10*3/uL Abs Immat Gran (auto) 0.03 (0.00-0.03) X10*3/uL Absolute Neuts (auto) 5.5 (2.0-8.3) x10*3/uL Absolute Nucleated RBC 0.000 (0.0-0.012) X10*3/uL Nucleated RBC % (auto) 0.0 (0.0-0.2) /100WBC Sodium 140 (135-145) mmol/L Potassium 4.7 (3.3-5.1) mmol/L Chloride 105 (96-108) mmol/L Carbon Dioxide 25 (22-29) mmol/L Anion Gap 15 (12-20) BUN 6 L (9-16) mg/dL Creatinine 0.75 (0.5-1.4) mg/dL Estim Creat Clear Calc 76.6 Estimated GFR > 60 POC Glucose (60-115) mg/dL Random Glucose 93 (60-115) mg/dL Calcium 10.6 H D (8.4-10.2) mg/dL Total Bilirubin 0.4 (0.0-1.0) mg/dL AST 26 (5-31) U/L ALT 25 (0-31) U/L Alkaline Phosphatase 76 D (39-117) U/L Total Creatine Kinase 80 (26-140) U/L Troponin I High Sens < 3.5 (<3.5-17.0) ng/L Total Protein 8.9 H (6.5-8.0) g/dL Albumin 5.2 H D (3.5-5.0) g/dL COVID-19 (LAKHWINDER) (Negative) COVID-19 Clin Com Influenza Type A (RITESH) (Negative) Influenza Type B (RITESH) (Negative) Influenza A & B Note S. pyogenes GrpA RITESH (Negative) 05/23/21 Range/Units 23:54 WBC (4.8-10.8) X10*3/uL RBC (4.20-5.50) X10*6/uL Hgb (12.0-16.0) g/dl Hct (37.0-47.0) % MCV (80.0-98.0) fL MCH (27.0-33.0) pg MCHC (31.0-35.0) g/dl RDW (11.0-16.0) % Plt Count (160-400) X10*3/uL MPV (9.4-12.3) fL Immature Gran % (Auto) (0.0-0.4) % Neut % (Auto) (45-73) % Lymph % (Auto) (20-40) % Sunflower % (Auto) (2-11) % Eos % (Auto) (0-4) % Baso % (Auto) (0-2) % Lymph # (Auto) (1.2-4.9) X10*3/uL Sunflower # (Auto) (0.1-1.2) X10*3/uL Eos # (Auto) (0.0-0.4) X10*3/uL Baso # (Auto) (0.0-0.2) X10*3/uL Abs Immat Gran (auto) (0.00-0.03) X10*3/uL Absolute Neuts (auto) (2.0-8.3) x10*3/uL Absolute Nucleated RBC (0.0-0.012) X10*3/uL Nucleated RBC % (auto) (0.0-0.2) /100WBC Sodium (135-145) mmol/L Potassium (3.3-5.1) mmol/L Chloride (96-108) mmol/L Carbon Dioxide (22-29) mmol/L Anion Gap (12-20) BUN (9-16) mg/dL Creatinine (0.5-1.4) mg/dL Estim Creat Clear Calc Estimated GFR POC Glucose 75 (60-115) mg/dL Random Glucose (60-115) mg/dL Calcium (8.4-10.2) mg/dL Total Bilirubin (0.0-1.0) mg/dL AST (5-31) U/L ALT (0-31) U/L Alkaline Phosphatase (39-117) U/L Total Creatine Kinase (26-140) U/L Troponin I High Sens (<3.5-17.0) ng/L Total Protein (6.5-8.0) g/dL Albumin (3.5-5.0) g/dL COVID-19 (LAKHWINDER) (Negative) COVID-19 Clin Com Influenza Type A (RITESH) (Negative) Influenza Type B (RITESH) (Negative) Influenza A & B Note S. pyogenes GrpA RITESH (Negative) ECG Data Attestation: I personally reviewed and interpreted this ECG as follows: ECG interpretation date: 05/24/21 ECG interpretation time: 00:45 Prior ECG tracings: available for review Interpretation: Ventricular rate of 85, WA normal, QRS normal, QT / QTC normal. EKG shows normal sinus rhythm no ST elevations or inversions concerning for ischemia. No significant changes when compared with EKG from July 2020 Critical Care Time Critical Care Time Critical Care Time: No Discharge Plan Discharge Clinical Impression: Asthma with exacerbation, Shortness of breath, Myalgia Patient Disposition: Admitted As Inpatient Additional Instructions: Take your medications as prescribed. If you were prescribed antibiotics toda y, it is important that you take your medication to their entirety, do not skip any doses, do not finish them early. Follow-up with your primary care provider this week. Return to the emergency department with new or worsening symptoms. Such as fevers, chills, chest pain, shortness of breath, nausea, vomiting, dizziness, headache, vision changes, lethargy In case of emergency call 911 Your laboratory studies were reassuring. Your flu/ COVID swabs were negative. Your x-ray was within normal limits. Your cardiac enzyme was normal. Your EKG looked good.
[2021-05-23 23:16] VITALS: PULSE 100; RESP 18; O2SAT 98
[2021-05-23] MEDS: Albuterol Sulfate (0.083%) 2.5 MG/3 ML VIAL.NEB 10 MG INHALE (23:16)
[2021-05-23 23:37] LABS: MANUAL DIFF FLAG NO
[2021-05-23 23:41] LABS: Basophils Absolute Auto 0.1 X10*3/uL (0.0-0.2); Eosinophils Absolute Auto 0.3 X10*3/uL (0.0-0.4); Eosinophils Percent Auto 3.4 % (0-4); Hemoglobin 15.8 g/dl (12.0-16.0); Imm Gran Abs Auto 0.03 X10*3/uL (0.00-0.03); Imm Gran Pct Auto 0.3 % (0.0-0.4); Lymphocytes Absolute Auto 2.6 X10*3/uL (1.2-4.9); Lymphocytes Percent Auto 28.8 % (20-40); Mean Corpuscular HGB Conc 32.9 g/dl (31.0-35.0); Mean Corpuscular Hemoglobin 29.2 pg (27.0-33.0); Mean Corpuscular Volume 88.6 fL (80.0-98.0); Monocytes Absolute Auto 0.5 X10*3/uL (0.1-1.2); Monocytes Percent Auto 5.7 % (2-11); Neutrophils Absolute Auto 5.5 x10*3/uL (2.0-8.3); Neutrophils Percent Auto 60.8 % (45-73); Platelet Count 418 X10*3/uL (160-400); Red Blood Count 5.42 X10*6/uL (4.20-5.50); Red Cell Distribution Width 12.9 % (11.0-16.0); White Blood Count 9.1 X10*3/uL (4.8-10.8)
[2021-05-23 23:55] LABS: Alanine Aminotransferase 25 U/L (0-31); Albumin Level 5.2 g/dL (3.5-5.0); Alkaline Phosphatase 76 U/L (39-117); Anion Gap 15 (12-20); Aspartate Amino Transferase 26 U/L (5-31); Bilirubin Total 0.4 mg/dL (0.0-1.0); Blood Urea Nitrogen 6 mg/dL (9-16); Calcium 10.6 mg/dL (8.4-10.2); Carbon Dioxide 25 mmol/L (22-29); Chloride 105 mmol/L (96-108); Creatinine Clr Calc Pharmacy 76.6; Estimated Glomerular Filt Rate > 60; Glucose Random 93 mg/dL (60-115); Influenza A Negative (Negative); Influenza B2 Negative (Negative); Potassium 4.7 mmol/L (3.3-5.1); Sodium 140 mmol/L (135-145); Total Protein 8.9 g/dL (6.5-8.0)
[2021-05-23 23:58] LABS: Troponin-I High Sensitivity < 3.5 ng/L (<3.5-17.0)
[2021-05-24] VITALS (11 sets, daily range): BP systolic 89–142; BP diastolic 63–82; PULSE 78–120; RESP 16–20; TEMP 36–36.8; O2SAT 95–99
--- NOTE | 2021-05-24 00:17 | ECG_ITS ---
Test Reason : DYSPNEA Blood Pressure : / mmHG Vent. Rate : 085 BPM Atrial Rate : 085 BPM P-R Int : 128 ms QRS Dur : 082 ms QT Int : 374 ms P-R-T Axes : 045 073 074 degrees QTc Int : 445 ms Normal sinus rhythm Normal ECG When compared with ECG of 03-AUG-2020 21:25, Nonspecific T wave abnormality now evident in Lateral leads Referred By: Cassi Howard Electronically Signed By:ROM WILKINS MD
[2021-05-24] MEDS: Albuterol Sulfate (0.083%) 2.5 MG/3 ML VIAL.NEB 10 MG INHALE (00:45)
[2021-05-24] MEDS: methylPREDNISolone Sod Succ 125 MG/2 ML VIAL IVPUSH (00:59)
[2021-05-24 01:07] LABS: Glucose, Whole Blood 75 mg/dL (60-115)
--- NOTE | 2021-05-24 01:28 | PC.NURSE ---
REPORT GIVEN AND CARE TRANSFERRED TO MARTA MARTINEZ.
[2021-05-24] MEDS: Magnesium Sulfate/H2O 2 GM/50 ML PIGGYBACK IV (01:37)
--- NOTE | 2021-05-24 02:16 | PM.IMHP ---
History of Present Illness Date of Service: 05/24/21 Chief Complaint: sob 35-year-old female with a past medical history of diabetes, asthma/COPD, pots syndrome, subclinical hypothyroidism presented to the hospital today with a chief complaint of shortness of breath. Patient reports that over the past 1 week she is having shortness of breath which has been gradually worsening; associated cough; denies any sputum production. Also mentioned she initially had upper respiratory symptoms including runny nose and body aches Patient also reports chest discomfort/tightness; attributes mainly to the posttussive. Denies any fevers. Mentions she tried to use her home inhalers/nebulizers with no significant improvement. Denies any GI symptoms. Denies any numbness tingling or focal weakness. Review of all other systems is negative except mentioned above ER course: Per ER team patient on presentation noted to be tight on examination; given nebulizations, magnesium, Solu-Medrol; patient was saturating 95% on room air; mentioned patient not in respiratory distress; admitted to the hospital for further management. [facility] Medical History Asthma with COPD with exacerbation Bipolar 1 disorder Carpal tunnel syndrome COPD (chronic obstructive pulmonary disease) Diabetes mellitus Family history of COPD (chronic obstructive pulmonary disease) Fibromyalgia History of MRSA infection Inappropriate sinus node tachycardia Kidney stones Polycystic ovarian disease Postural orthostatic tachycardia syndrome POTS (postural orthostatic tachycardia syndrome) Schizoaffective disorder Subclinical hyperthyroidism SVT (supraventricular tachycardia) UTI (urinary tract infection) Family History Other COPD (chronic obstructive pulmonary disease) Pertinent family history: Diabetes runs in the family Heart disease runs in the family. Has uncles who of heart disease at an age. Grandparents had heart disease at older age Surgical History History of renal stent History of tubal ligation Hx of abdominoplasty Hx of lithotripsy Tubal ligation status Social History Household Members: Children Housing: Apartment Do you presently have visiting nurse or other home services: No Alcohol intake: never Patient Tobacco Use Status: Never used Tobacco Second Hand Smoke Exposure: No Advance Directives: No Advance Directives Information Provided: No Patient : No service: No Current occupational status: unemployed Meds Allergies Allergy/AdvReac Type Severity Reaction Status Date / Time somatropin [SOMATROPIN] Allergy Unknown UNKNOWN Verified 05/23/21 17:48 amitriptyline [AMITRIPTYLINE] AdvReac Intermediate NAUSEA, Verified 05/23/21 17:48 DIZZINESS albuterol [ALBUTEROL] AdvReac Mild TACHYCARDIA Verified 05/23/21 17:48 esomeprazole [From NEXIUM] AdvReac Mild TACHYCARDIA Verified 05/23/21 17:48 Active Medications: Current Medications Acetaminophen (Acetaminophen 325 Mg Tablet) 650 mg PO Q6H PRN PRN Reason: Pain, Mild (Pain Scale 1-3) Albuterol/Ipratropium (Albuterol/Iprat 2.5/0.5mg 3 Ml Ampul.Neb) 3 ml INHALE RQ4H WHILE AWAKE MAEVE Albuterol/Ipratropium (Albuterol/Iprat 2.5/0.5mg 3 Ml Ampul.Neb) 3 ml INHALE RQ4H PRN PRN Reason: Shortness of Breath/Wheezing Azithromycin (Azithromycin 500 Mg Tablet) 500 mg PO Q24H MAEVE Benzonatate (Benzonatate 100 Mg Capsule) 100 mg PO TID PRN PRN Reason: Cough Clonazepam (Clonazepam 0.5 Mg Tablet) 0.5 mg PO BID PRN PRN Reason: anxiety/restlessness Dextrose (Dextrose 50 % 25 Gm/50 Ml Vial) 25 gm IVPUSH Q15M PRN; Protocol PRN Reason: per Hypoglycemia Standing Ord. Divalproex Sodium (Divalproex Sodium 500 Mg Tablet.Dr) 500 mg PO BID MAEVE Enoxaparin Sodium (Enoxaparin Sodium 40 Mg/0.4 Ml Syringe) 40 mg SUBCUT Q24H MAEVE Glucose (Glucose Gel 15 Gm Gel..Gram.) 15 gm PO Q15M PRN; Protocol PRN Reason: per Hypoglycemia Standing Ord. Magnesium Sulfate (Magnesium Sulfate/H2o) 2 gm in 50 mls @ 25 mls/hr IV ONCE ONE Stop: 05/24/21 03:27 Last Admin: 05/24/21 01:37 Dose: 25 mls/hr Documented by: Insulin Human Lispro (Insulin Lispro 100 Unit/Ml 3 Ml Vial) 0 unit SUBCUT QIDACHS MAEVE; Protocol Lurasidone HCl (Lurasidone Hcl 40 Mg Tablet) 40 mg PO BEDTIME MAEVE Melatonin (Melatonin 3 Mg Tablet) 6 mg PO BEDTIME PRN PRN Reason: Insomnia Methylprednisolone Sodium Succinate (Methylprednisolone Sod Succ 40 Mg/Ml Vial) 40 mg IVPUSH Q6H MAEVE Metoprolol Tartrate (Metoprolol Tartrate 12.5 Mg Halftab) 12.5 mg PO BID MAEVE; Protocol Pharmacy Consult (Consult Rx Perform Med Rec) 1 each MISCELLANE ONCE PRN PRN Reason: Consult order Senna (Sennosides 8.6 Mg Tablet) 17.2 mg PO BEDTIME PRN PRN Reason: Constipation Sodium Chloride (0.9 % Sodium Chloride Flush 3 Ml Syringe) 3 ml IVFLUSH QSHIFT [facility] Home Medications Medication Instructions Recorded Confirmed Last Taken Type clonazepam 1 mg tablet 1 mg PO NEEDED PRN 12/13/19 05/24/21 05/21/21 History divalproex 500 mg tablet,extended 250 tab PO BID 07/10/20 05/24/21 05/23/21 09:00 History release 24 hr (Depakote ER) zolpidem 10 mg tablet 1 tab PO BEDTIME PRN 05/24/21 05/24/21 05/22/21 History Physical Exam Vital Signs and Narrative: Vital Signs: Last Vital Signs Temp 97.9 F 05/24/21 02:00 Pulse 94 05/24/21 02:00 Resp 16 05/24/21 02:00 BP 112/63 05/24/21 02:00 Pulse Ox 96 05/24/21 02:00 BMI result Body Mass Index 22.6 Gen: Appears be in no acute distress HEENT: NCAT, Moist mucosa. Pulmonary: Bilateral inspiratory and expiratory wheezing present. Patient able to finish sentences. Saturating 95% on room air. CVS: Normal S1-S2 Abdomen: BS+, Soft, Nontender Extremities: Warm well perfused Neuro: Alert and awake. Grossly nonfocal Results Labs CBC and Chem 7: 05/24/21 02:43 05/24/21 02:43 Labs: Laboratory Results - last 24 hr 05/23/21 05/23/21 05/23/21 18:24 18:24 23:28 MCV MCH MCHC RDW Plt Count MPV Immature Gran % (Auto) Neut % (Auto) Lymph % (Auto) [place] % (Auto) Eos % (Auto) Baso % (Auto) Lymph # (Auto) [place] # (Auto) Eos # (Auto) Baso # (Auto) Abs Immat Gran (auto) Absolute Neuts (auto) Absolute Nucleated RBC Nucleated RBC % (auto) Anion Gap Estim Creat Clear Calc Estimated GFR POC Glucose Random Glucose Calcium Total Bilirubin AST ALT Alkaline Phosphatase Total Creatine Kinase Troponin I High Sens Total Protein Albumin COVID-19 (LAKHWINDER) Negative COVID-19 Clin Com See Note Influenza Type A (RITESH) Negative Influenza Type B (RITESH) Negative Influenza A & B Note See Note S. pyogenes GrpA RITESH Negative 05/23/21 05/23/21 05/23/21 23:28 23:28 23:28 MCV 88.6 MCH 29.2 MCHC 32.9 RDW 12.9 Plt Count 418 H MPV 10.0 Immature Gran % (Auto) 0.3 Neut % (Auto) 60.8 Lymph % (Auto) 28.8 [place] % (Auto) 5.7 Eos % (Auto) 3.4 Baso % (Auto) 1.0 Lymph # (Auto) 2.6 [place] # (Auto) 0.5 Eos # (Auto) 0.3 Baso # (Auto) 0.1 Abs Immat Gran (auto) 0.03 Absolute Neuts (auto) 5.5 Absolute Nucleated RBC 0.000 Nucleated RBC % (auto) 0.0 Anion Gap 15 Estim Creat Clear Calc 76.6 Estimated GFR > 60 POC Glucose Random Glucose 93 Calcium 10.6 H D Total Bilirubin 0.4 AST 26 ALT 25 Alkaline Phosphatase 76 D Total Creatine Kinase 80 Troponin I High Sens < 3.5 Total Protein 8.9 H Albumin 5.2 H D COVID-19 (LAKHWINDER) COVID-19 Clin Com Influenza Type A (RITESH) Influenza Type B (RITESH) Influenza A & B Note S. pyogenes GrpA RITESH 05/23/21 23:54 MCV MCH MCHC RDW Plt Count MPV Immature Gran % (Auto) Neut % (Auto) Lymph % (Auto) [place] % (Auto) Eos % (Auto) Baso % (Auto) Lymph # (Auto) [place] # (Auto) Eos # (Auto) Baso # (Auto) Abs Immat Gran (auto) Absolute Neuts (auto) Absolute Nucleated RBC Nucleated RBC % (auto) Anion Gap Estim Creat Clear Calc Estimated GFR POC Glucose 75 Random Glucose Calcium Total Bilirubin AST ALT Alkaline Phosphatase Total Creatine Kinase Troponin I High Sens Total Protein Albumin COVID-19 (LAKHWINDER) COVID-19 Clin Com Influenza Type A (RITESH) Influenza Type B (RITESH) Influenza A & B Note S. pyogenes GrpA RITESH Imaging Radiologist's Impressions: Impressions Chest X-Ray 05/23/21 18:18 IMPRESSION: Unremarkable examination. Assessment and Plan (1) Asthma with exacerbation: Status: Acute Plan 35-year-old female with a past medical history of asthma/COPD, subclinical hypothyroidism, pots syndrome, diabetes presented to the hospital with a chief complaint of shortness of breath. Noted to be in acute asthma exacerbation. Admitted for further management. Acute asthma/COPD exacerbation: Will give the patient on Solu-Medrol IV q.i.d. Nebulizations standing and p.r.n. Azithromycin Tessalon Perles p.r.n. Rapid COVID and influenza negative. Will also obtain RSV History of diabetes: Insulin sliding scale History of pots: Currently stable blood pressure. Monitor on telemetry. 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 Has not taken her metoprolol. Currently patient heart rate in 120s. Will keep the patient on metoprolol 12.5 mg b.i.d. with holding parameters DVT prophylaxis: Lovenox Code status: Full code Quality Stroke Does the patient have a stroke diagnosis?: No VTE Prior VTE?: No VTE Risk Level:: Medical - moderate - high VTE Device Contraindication: Treatment Not Indicated VTE Drug Contraindication: N/A - Med Ordered
[2021-05-24] MEDS: Albuterol/Iprat 2.5/0.5MG 3 ML AMPUL.NEB INHALE (02:17)
[2021-05-24 02:52] LABS: MANUAL DIFF FLAG NO
[2021-05-24 02:53] LABS: Basophils Absolute Auto 0.1 X10*3/uL (0.0-0.2); Basophils Percent Auto 0.3 % (0-2); Eosinophils Absolute Auto 0.1 X10*3/uL (0.0-0.4); Eosinophils Percent Auto 0.4 % (0-4); Hematocrit 41.8 % (37.0-47.0); Hemoglobin 13.8 g/dl (12.0-16.0); Imm Gran Abs Auto 0.06 X10*3/uL (0.00-0.03); Imm Gran Pct Auto 0.4 % (0.0-0.4); Lymphocytes Absolute Auto 1.4 X10*3/uL (1.2-4.9); Lymphocytes Percent Auto 8.4 % (20-40); Mean Corpuscular Hemoglobin 29.4 pg (27.0-33.0); Mean Corpuscular Volume 88.9 fL (80.0-98.0); Mean Platelet Volume 9.8 fL (9.4-12.3); Monocytes Absolute Auto 0.5 X10*3/uL (0.1-1.2); Monocytes Percent Auto 3.2 % (2-11); Neutrophils Percent Auto 87.3 % (45-73); Platelet Count 342 X10*3/uL (160-400); Red Cell Distribution Width 12.8 % (11.0-16.0); Venous Blood Gas Refer to POC result; White Blood Count 17.1 X10*3/uL (4.8-10.8)
[2021-05-24 02:54] LABS: VBG Base Excess -0.7 mmol/L; VBG HCO3 24 mmol/L (22-26); VBG pCO2 43 mmHg; VBG pH 7.36 (7.32-7.43); VBG pO2 39 mmHg
[2021-05-24 03:07] LABS: Anion Gap 17 (12-20); Blood Urea Nitrogen 7 mg/dL (9-16); Calcium 9.6 mg/dL (8.4-10.2); Carbon Dioxide 24 mmol/L (22-29); Chloride 103 mmol/L (96-108); Estimated Glomerular Filt Rate > 60; Glucose Random 155 mg/dL (60-115); Potassium 3.1 mmol/L (3.3-5.1); Sodium 141 mmol/L (135-145)
[2021-05-24] MEDS: Azithromycin 500 MG TABLET PO (03:21)
[2021-05-24] MEDS: clonazePAM 0.5 MG TABLET PO (03:58)
[2021-05-24] MEDS: Metoprolol Tartrate 12.5 MG HALFTAB PO ×2 (04:55→19:57)
--- NOTE | 2021-05-24 04:55 | PC.NURSE ---
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 Espitia made aware. Per verbal order, give dose of metoprolol PO. No other orders Pt medicated per APR Pt tolerated well Wll continue to monitor
[2021-05-24 06:37] LABS: Influenza A PCR NEGATIVE (Negative); Influenza B PCR NEGATIVE (Negative); Resp Syncy Virus RNA Qual PCR NEGATIVE (Negative); SARS COV2 PCR INHOUSE NEGATIVE (Negative)
[2021-05-24] MEDS: methylPREDNISolone Sod Succ 40 MG/ML VIAL IVPUSH (06:58)
[2021-05-24 07:32] LABS: Glucose, Whole Blood 223 mg/dL (60-115)
[2021-05-24] MEDS: Insulin Lispro 100 UNIT/ML 3 ML VIAL SUBCUT ×3 (08:02→21:15)
[2021-05-24] MEDS: Divalproex Sodium 500 MG TABLET.DR PO (08:03)
[2021-05-24] MEDS: Enoxaparin Sodium 40 MG/0.4 ML SYRINGE SUBCUT (08:04)
[2021-05-24] MEDS: 0.9 % Sodium Chloride Flush 3 ML SYRINGE IVFLUSH ×3 (08:08→19:59)
--- NOTE | 2021-05-24 08:17 | PC.NURSE ---
pt alert and oriented, vss. pt reports mild chest discomfort with inhalation. she denies sob. no apparent distress noted. meds given as documented, breakfast given. will continue to monitor.
--- NOTE | 2021-05-24 08:35 | PC.NURSE ---
metoprolol documented as given at 0455. this tech writer attempted to scan medication and it came up as documenting for future administration. med will be returned to [facility].
--- NOTE | 2021-05-24 08:50 | PHA.MEDREC ---
MED REC COMPLETE, PATIENT HAS BEEN WITHOUT ADVAIR INHALER FOR AT LEAST 2 MONTHS, RAN OUT OF REFILLS AND HAS NOT BEEN ABLE TO OBTAIN Pharmacy Consult ? Medication Reconciliation Pharmacy has completed the medication reconciliation.
--- NOTE | 2021-05-24 10:11 | MHC.CM.PN ---
met with pt who is dcd pt will be livivng with her parents to help with her recovery pt drives and is vax x 3 dc plan home
--- NOTE | 2021-05-24 10:22 | PM.EVENT ---
Event Note Date of Service: 05/24/21 Event Note: 35-year-old female with a past medical history of asthma/COPD, subclinical hypothyroidism, pots syndrome, diabetes presented to the hospital with a chief complaint of shortness of breath.? Noted to be in acute asthma exacerbation.? Admitted for further management. Acute asthma/COPD exacerbation: Persistent cough and chest tightness, diminished breath sound on examination, continue IV Solu-Medrol , change nebulizer to Xopenex since history of POTS/ and SVT will add scheduled cough medication continue azithromycin for possible bronchitis add allergic medication continue Tessalon Perles p.r.n. Rapid COVID and influenza negative.? no evidence of severe sepsis, tachycardia due to albuterol, leukocytosis likely due to steroids and 1 low blood pressure reading likely due to history of postural orthostatic tachycardia syndrome. History of diabetes: not on home medication continue? Insulin sliding scale and monitor blood sugars History of pots:? continue tele monitor History of SVT:? 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 Has not taken her metoprolol, noted to have elevated pulse in ED therefore placed on metoprolol 12.5 mg b.i.d. with holding parameters DVT prophylaxis:? Lovenox Code status:? Full code
--- NOTE | 2021-05-24 11:50 | P.CDIC_ITS ---
CDI Concurrent Query Documentation Clarification: PHYSICIAN'S DOCUMENTATION REQUEST Date of Query: 05/24/21 1150 Patient Name: Guillermina Townsend Admit Date: 05/24/21 Dear Doctor, Please review the following and provide your response in the progress notes. Risk Factors/Clinical Indicators/Treatments Shortness of breath, dizzy, aches Per H&P: Acute Asthma/COPD exacerbation Treated with Zithromax, Xopenex, Robitussin DM, Solu Medrol,DuoNeb Based on the above, please clarify in the Progress Notes further specificity regarding the type and acuity of the asthma: Type: * Mild intermittent - less than 2x/week * Mild persistent - more than 2x/week but not daily * Moderate persistent - daily and may restrict physical activity * Severe persistent - throughout the day with frequent attacks, limiting activities * Exercise induced * Other ? please specify * Unable to determine Acuity: * With acute exacerbation * With status asthmaticus * Uncomplicated * Unable to determine Use of terms such as suspected, likely, concern for, or probable (associated with a specific diagnosis that is being evaluated, monitored, or treated as if it exists) are acceptable and can be coded in the inpatient setting, when documented at the time of discharge. Thank you, Romana Mcconnell RN Extension: [phone] Please use your independent medical judgment in providing your response. THIS QUERY IS PART OF THE PERMANENT MEDICAL RECORD Provider Response: Other Other Diagnosis: acute asthma written in my progress note/ mild persistent asthma
--- NOTE | 2021-05-24 11:50 | MHC.CDI.CONC ---
CDI Concurrent Query Documentation Clarification: PHYSICIAN'S DOCUMENTATION REQUEST Date of Query: 05/24/21 1150 Patient Name: Guillermina Townsend Admit Date: 05/24/21 Dear Doctor, Please review the following and provide your response in the progress notes. Risk Factors/Clinical Indicators/Treatments Shortness of breath, dizzy, aches Per H&P: Acute Asthma/COPD exacerbation Treated with Zithromax, Xopenex, Robitussin DM, Solu Medrol,DuoNeb Based on the above, please clarify in the Progress Notes further specificity regarding the type and acuity of the asthma: Type: Mild intermittent - less than 2x/week Mild persistent - more than 2x/week but not daily Moderate persistent - daily and may restrict physical activity Severe persistent - throughout the day with frequent attacks, limiting activities Exercise induced Other ? please specify Unable to determine Acuity: With acute exacerbation With status asthmaticus Uncomplicated Unable to determine Use of terms such as suspected, likely, concern for, or probable (associated with a specific diagnosis that is being evaluated, monitored, or treated as if it exists) are acceptable and can be coded in the inpatient setting, when documented at the time of discharge. Thank you, Romana Mcconnell RN Extension: [phone] Please use your independent medical judgment in providing your response. THIS QUERY IS PART OF THE PERMANENT MEDICAL RECORD Provider Response: Other Other Diagnosis: acute asthma written in my progress note/ mild persistent asthma
--- NOTE | 2021-05-24 12:08 | MHC.CM.PN ---
met with pt in ed pt reports she had no servceis prior to admisison pts car in parking lot ahe will drive herself home she is vax x 2 no servceis needed when dcd
[2021-05-24] MEDS: guaiFENesin DM 200/20/10 ML 10 ML SYRUP PO ×2 (13:15→18:22)
[2021-05-24] MEDS: Loratadine 10 MG TABLET PO (13:15)
[2021-05-24] MEDS: methylPREDNISolone Sod Succ 125 MG/2 ML VIAL 60 MG IVPUSH ×2 (13:16→18:22)
[2021-05-24 13:18] LABS: Glucose, Whole Blood 204 mg/dL (60-115)
[2021-05-24 16:17] LABS: Glucose, Whole Blood 143 mg/dL (60-115)
--- NOTE | 2021-05-24 19:51 | P.CONPL_ITS ---
History of Present Illness History of Present Illness Consult date: 05/24/21 Chief complaint: Acute asthma exacerbation Narrative: This is an inpatient pulmonary consultation. The patient is a 35-year-old female with a past medical history of diabetes, asthma/COPD, pots syndrome, who was in usual state health until a week ago when she started developing URI like symptoms. She started developing worsening cough and subsequently started having chest tightness and wheezing. She was responding to her respiratory therapy at home so therefore she decided to come in for further evaluation. On arrival she was found to have a diminished breath sounds with wheezing. Her chest x-ray was clear. She was placed on IV Solu-Medrol and also nebulizer therapy and now she is feeling a lot better. She carries a diagnosis of COPD. She is very young. She does have a positive family history. At some point she needs to be tested for alpha-1 antitrypsin deficiency. Review of Systems Review of Systems: Constitutional : No Weight loss, No Fever, No Chills, + Fatigue, + Malaise ENT/Mouth : No sore throat, No Rhinorrhea Eyes: No Eye Pain, No Swelling, No Redness Cardiovascular : No Chest Pain, + SOB, No Dyspnea on Exertion, No Orthopnea, No Edema, No Palpitations Respiratory : No Cough, No Sputum, No Wheezing Gastrointestinal : No Nausea, No Vomiting, No Diarrhea, No Constipation, No abdominal Pain, No Hematochezia, No Melena Genitourinary : No Dysuria, No Urinary Frequency, No Hematuria, Musculoskeletal : No joint pain, No Myalgias, No Joint Swelling Skin : No Skin Lesions, No rash Neuro : No Weakness, No Numbness, No Dizziness, No Headache Psych : No Anxiety/Panic, No Depression All other systems reviewed and are negative Yes all other systems are reviewed and are negative [facility] Past Medical History Medical History Asthma with COPD with exacerbation Bipolar 1 disorder Carpal tunnel syndrome COPD (chronic obstructive pulmonary disease) Diabetes mellitus Family history of COPD (chronic obstructive pulmonary disease) Fibromyalgia History of MRSA infection Inappropriate sinus node tachycardia Kidney stones Polycystic ovarian disease Postural orthostatic tachycardia syndrome POTS (postural orthostatic tachycardia syndrome) Schizoaffective disorder Subclinical hyperthyroidism SVT (supraventricular tachycardia) UTI (urinary tract infection) Family History Family History Other COPD (chronic obstructive pulmonary disease) Surgical History Surgical History History of renal stent History of tubal ligation Hx of abdominoplasty Hx of lithotripsy Tubal ligation status Social History Social History Household Members: Children Housing: House Do you presently have visiting nurse or other home services: No Alcohol intake: never Patient Tobacco Use Status: Never used Tobacco Second Hand Smoke Exposure: No service: No Current occupational status: unemployed Meds Allergies Allergy/AdvReac Type Severity Reaction Status Date / Time somatropin [SOMATROPIN] Allergy Unknown UNKNOWN Verified 05/23/21 17:48 amitriptyline [AMITRIPTYLINE] AdvReac Intermediate NAUSEA, Verified 05/23/21 17:48 DIZZINESS albuterol [ALBUTEROL] AdvReac Mild TACHYCARDIA Verified 05/23/21 17:48 esomeprazole [From NEXIUM] AdvReac Mild TACHYCARDIA Verified 05/23/21 17:48 Active Medications: Current Medications Acetaminophen (Acetaminophen 325 Mg Tablet) 650 mg PO Q6H PRN PRN Reason: Pain, Mild (Pain Scale 1-3) Albuterol/Ipratropium (Albuterol/Iprat 2.5/0.5mg 3 Ml Ampul.Neb) 3 ml INHALE RQ4H PRN PRN Reason: Shortness of Breath/Wheezing Azithromycin (Azithromycin 500 Mg Tablet) 500 mg PO Q24H MAEVE Last Admin: 05/24/21 03:21 Dose: 500 mg Documented by: Clonazepam (Clonazepam 1 Mg Tablet) 1 mg PO DAILY PRN PRN Reason: Anxiety Dextrose (Dextrose 50 % 25 Gm/50 Ml Vial) 25 gm IVPUSH Q15M PRN; Protocol PRN Reason: per Hypoglycemia Standing Ord. Divalproex Sodium (Divalproex Sodium Er 500 Mg Tab.Er.24h) 500 mg PO BID MAEVE Enoxaparin Sodium (Enoxaparin Sodium 40 Mg/0.4 Ml Syringe) 40 mg SUBCUT Q24H MAEVE Last Admin: 05/24/21 08:04 Dose: 40 mg Documented by: Glucose (Glucose Gel 15 Gm Gel..Gram.) 15 gm PO Q15M PRN; Protocol PRN Reason: per Hypoglycemia Standing Ord. Guaifenesin/Dextromethorphan (Guaifenesin Dm 200/20/10 Ml 10 Ml Syrup) 10 ml PO Q6H [facility] Last Admin: 05/24/21 18:22 Dose: 10 ml Documented by: Insulin Human Lispro (Insulin Lispro 100 Unit/Ml 3 Ml Vial) 0 unit SUBCUT QIDACHS [facility]; Protocol Last Admin: 05/24/21 17:15 Dose: Not Given Documented by: Levalbuterol HCl (Levalbuterol Hcl 1.25 Mg/0.5 Ml Vial.Neb) 1.25 mg INHALE RQ4H WHILE AWAKE [facility] Last Admin: 05/24/21 15:24 Dose: 1.25 mg Documented by: Levalbuterol HCl (Levalbuterol Hcl 1.25 Mg/0.5 Ml Vial.Neb) 1.25 mg INHALE Q3H PRN PRN Reason: sob Loratadine (Loratadine 10 Mg Tablet) 10 mg PO DAILY [facility] Last Admin: 05/24/21 13:15 Dose: 10 mg Documented by: Lurasidone HCl (Lurasidone Hcl 40 Mg Tablet) 40 mg PO BEDTIME [facility] Melatonin (Melatonin 3 Mg Tablet) 6 mg PO BEDTIME PRN PRN Reason: Insomnia Methylprednisolone Sodium Succinate (Methylprednisolone Sod Succ 125 Mg/2 Ml Vial) 60 mg IVPUSH Q6H [facility] Last Admin: 05/24/21 18:22 Dose: 60 mg Documented by: Metoprolol Tartrate (Metoprolol Tartrate 12.5 Mg Halftab) 12.5 mg PO BID [facility]; Protocol Last Admin: 05/24/21 04:55 Dose: 12.5 mg Documented by: Pharmacy Consult (Consult Rx Perform Med Rec) 1 each MISCELLANE ONCE PRN PRN Reason: Consult order Senna (Sennosides 8.6 Mg Tablet) 17.2 mg PO BEDTIME PRN PRN Reason: Constipation Sodium Chloride (0.9 % Sodium Chloride Flush 3 Ml Syringe) 3 ml IVFLUSH QSHIFT [facility] Last Admin: 05/24/21 18:22 Dose: 3 ml Documented by: Zolpidem Tartrate (Zolpidem Tartrate 5 Mg Tablet) 5 mg PO BEDTIME PRN PRN Reason: Sleep Home Medications Medication Instructions Recorded Confirmed Last Taken Type clonazepam 1 mg tablet 1 mg PO DAILY PRN 12/13/19 05/24/21 1 Day Ago History ~11/24/20 divalproex 500 mg tablet,extended 500 mg PO BID 07/10/20 05/24/21 05/23/21 09:00 History release 24 hr (Depakote ER) zolpidem 10 mg tablet 1 tab PO BEDTIME PRN 05/24/21 05/24/21 05/22/21 History Physical Exam Vital Signs: Vital Signs: Last Vital Signs Temp 96.8 F 05/24/21 19:18 Pulse 91 05/24/21 19:18 Resp 17 05/24/21 19:18 BP 112/70 05/24/21 19:18 Pulse Ox 97 05/24/21 19:18 BMI result Body Mass Index 22.6 Const: General: alert Neck: Neck: Yes normal visual inspection, Yes full ROM and Yes no lymphadenopathy Chest: Chest palpation & inspection: normal inspection of the chest Resp: Auscultation: diminished lung sounds Cardio: Rate: regular rate Rhythm: regular rhythm Heart sounds: S1 nenita l heart sound present and S2 normal heart sound present GI: Palpation (GI): Soft to palpation and nontender Auscultation: normal bowel sounds Skin: General skin exam: rashes and/or lesions noted Results Laboratory Findings CBC and BMP: 05/24/21 02:43 05/24/21 02:43 Abnormal lab findings: Abnormal Labs 05/23/21 05/23/21 05/24/21 23:28 23:28 02:43 WBC 17.1 H Hct 48.0 H Plt Count 418 H Neut % (Auto) 87.3 H Lymph % (Auto) 8.4 L Abs Immat Gran (auto) 0.06 H Absolute Neuts (auto) 15.0 H Potassium BUN 6 L POC Glucose Random Glucose Calcium 10.6 H D Total Protein 8.9 H Albumin 5.2 H D 05/24/21 05/24/21 05/24/21 02:43 07:29 12:46 WBC Hct Plt Count Neut % (Auto) Lymph % (Auto) Abs Immat Gran (auto) Absolute Neuts (auto) Potassium 3.1 L D BUN 7 L POC Glucose 223 H 204 H Random Glucose 155 H Calcium Total Protein Albumin 05/24/21 16:03 WBC Hct Plt Count Neut % (Auto) Lymph % (Auto) Abs Immat Gran (auto) Absolute Neuts (auto) Potassium BUN POC Glucose 143 H Random Glucose Calcium Total Protein Albumin Assessment and Plan (1) Asthma with exacerbation: Status: Acute (2) Asthma with COPD with exacerbation: Status: Acute Plan Clinically the patient appears to be doing better. Likely has a viral syndrome resulting in bronchitis. She is on room air and she is on IV Solu- Medrol. Her respiratory exam appears to also be improved. The patient needs to have close outpatient follow-up. recommendations: Continue with frequent nebulized therapy every 4-6 hours Mery vaughn to switch her p.o. prednisone will set up outpatient follow-up in 2 weeks with dramatic art teacher should have alpha-1 testing Procedures Date of Service Date of Service: 05/24/21
[2021-05-24] MEDS: Divalproex Sodium ER 500 MG TAB.ER.24H PO (19:57)
[2021-05-24] MEDS: Acetaminophen 325 MG TABLET 650 MG PO (19:57)
[2021-05-24] MEDS: Zolpidem Tartrate 5 MG TABLET PO (21:27)
[2021-05-25] VITALS (10 sets, daily range): BP systolic 90–118; BP diastolic 51–62; PULSE 78–104; RESP 16–20; TEMP 36.6–37.2; O2SAT 94–99
[2021-05-25] MEDS: methylPREDNISolone Sod Succ 125 MG/2 ML VIAL 60 MG IVPUSH ×3 (00:01→12:35)
[2021-05-25] MEDS: Azithromycin 500 MG TABLET PO (03:45)
[2021-05-25] MEDS: guaiFENesin DM 200/20/10 ML 10 ML SYRUP PO ×4 (06:17→18:34)
[2021-05-25 07:24] LABS: Glucose, Whole Blood 134 mg/dL (60-115)
[2021-05-25] MEDS: Loratadine 10 MG TABLET PO (10:04)
[2021-05-25] MEDS: Metoprolol Tartrate 12.5 MG HALFTAB PO (10:05)
[2021-05-25] MEDS: Divalproex Sodium ER 500 MG TAB.ER.24H PO ×2 (10:05→21:52)
[2021-05-25] MEDS: 0.9 % Sodium Chloride Flush 3 ML SYRINGE IVFLUSH ×2 (10:08→17:02)
[2021-05-25] MEDS: Enoxaparin Sodium 40 MG/0.4 ML SYRINGE SUBCUT (10:10)
[2021-05-25] MEDS: Butalb/Acetamin/Caff 50/325/40 TABLET 1 TAB PO ×2 (10:23→18:33)
[2021-05-25 11:02] LABS: Glucose, Whole Blood 122 mg/dL (60-115)
--- NOTE | 2021-05-25 14:14 | P.PNIM_ITS ---
Subjective Subjective Date of Service: 05/25/21 Interval History: complaining of severe migraine headache, shortness of breath has improved still complaining of chest tightness, no fevers no chills no other acute issues overnight Review of Systems Review of Systems: Yes all other systems are reviewed and are negative Physical Exam Vital Signs: Vital Signs: Last Vital Signs Temp 98.4 F 05/25/21 11:15 Pulse 89 05/25/21 11:15 Resp 20 05/25/21 11:15 BP 118/62 05/25/21 11:15 Pulse Ox 96 05/25/21 11:15 BMI result Body Mass Index 22.6 Const: Other: General Awake alert, in no acute distress. Neck no JVD. CVS regular rate rhythm, Respiratory lungs decreased air movement bilateral expiratory wheeze, no use of accessory musclesi. Gastrointestinal abdomen soft, nontender, bowel sounds audible, Extremities no edema. Neuro nonfocal Skin no rash psych appropriate affect Objective Data Active Medications Acetaminophen (Acetaminophen 325 Mg Tablet) 650 mg PO Q6H PRN PRN Reason: Pain, Mild (Pain Scale 1-3) Last Admin: 05/24/21 19:57 Dose: 650 mg Documented by: ANNE Albuterol/Ipratropium (Albuterol/Iprat 2.5/0.5mg 3 Ml Ampul.Neb) 3 ml INHALE RQ4H PRN PRN Reason: Shortness of Breath/Wheezing Azithromycin (Azithromycin 500 Mg Tablet) 500 mg PO Q24H [facility] Last Admin: 05/25/21 03:45 Dose: 500 mg Documented by: ANNE Clonazepam (Clonazepam 1 Mg Tablet) 1 mg PO DAILY PRN PRN Reason: Anxiety Dextrose (Dextrose 50 % 25 Gm/50 Ml Vial) 25 gm IVPUSH Q15M PRN; Protocol PRN Reason: per Hypoglycemia Standing Ord. Divalproex Sodium (Divalproex Sodium Er 500 Mg Tab.Er.24h) 500 mg PO BID [facility] Last Admin: 05/25/21 10:05 Dose: 500 mg Documented by: STEWART Enoxaparin Sodium (Enoxaparin Sodium 40 Mg/0.4 Ml Syringe) 40 mg SUBCUT Q24H [facility] Last Admin: 05/25/21 10:10 Dose: 40 mg Documented by: STEWART Glucose (Glucose Gel 15 Gm Gel..Gram.) 15 gm PO Q15M PRN; Protocol PRN Reason: per Hypoglycemia Standing Ord. Guaifenesin/Dextromethorphan (Guaifenesin Dm 200/20/10 Ml 10 Ml Syrup) 10 ml PO Q6H [facility] Last Admin: 05/25/21 13:27 Dose: 10 ml Documented by: STEWART Insulin Human Lispro (Insulin Lispro 100 Unit/Ml 3 Ml Vial) 0 unit SUBCUT QIDACHS [facility]; Protocol Last Admin: 05/25/21 13:39 Dose: Not Given Documented by: STEWART Non-Admin Reason: No Insulin Coverage Levalbuterol HCl (Levalbuterol Hcl 1.25 Mg/0.5 Ml Vial.Neb) 1.25 mg INHALE RQ4H WHILE AWAKE [facility] Last Admin: 05/25/21 11:09 Dose: 1.25 mg Documented by: RAHEL Levalbuterol HCl (Levalbuterol Hcl 1.25 Mg/0.5 Ml Vial.Nichole) 1.25 mg INHALE Q3H PRN PRN Reason: sob Loratadine (Loratadine 10 Mg Tablet) 10 mg PO DAILY [facility] Last Admin: 05/25/21 10:04 Dose: 10 mg Documented by: STEWART Lurasidone HCl (Lurasidone Hcl 40 Mg Tablet) 40 mg PO BEDTIME [facility] Last Admin: 05/24/21 19:58 Dose: Not Given Documented by: ANNE Non-Admin Reason: Patient Refused Melatonin (Melatonin 3 Mg Tablet) 6 mg PO BEDTIME PRN PRN Reason: Insomnia Methylprednisolone Sodium Succinate (Methylprednisolone Sod Succ 125 Mg/2 Ml Vial) 60 mg IVPUSH Q6H [facility] Last Admin: 05/25/21 12:35 Dose: 60 mg Documented by: STEWART Metoprolol Tartrate (Metoprolol Tartrate 12.5 Mg Halftab) 12.5 mg PO BID [facility]; Protocol Last Admin: 05/25/21 10:05 Dose: 12.5 mg Documented by: STEWART Pharmacy Consult (Consult Rx Perform Med Rec) 1 each MISCELLANE ONCE PRN PRN Reason: Consult order Senna (Sennosides 8.6 Mg Tablet) 17.2 mg PO BEDTIME PRN PRN Reason: Constipation Sodium Chloride (0.9 % Sodium Chloride Flush 3 Ml Syringe) 3 ml IVFLUSH QSHIFT [facility]EVE Last Admin: 05/25/21 10:08 Dose: 3 ml Documented by: STEWART Zolpidem Tartrate (Zolpidem Tartrate 5 Mg Tablet) 5 mg PO BEDTIME PRN PRN Reason: Sleep Last Admin: 05/24/21 21:27 Dose: 5 mg Documented by: ANNE Labs CBC & Chem 7: 05/24/21 02:43 05/24/21 02:43 Labs: Laboratory Results - last 24 hr 05/24/21 05/25/21 05/25/21 16:03 07:15 10:58 POC Glucose 143 H 134 H 122 H Assessment and Plan (1) Asthma with exacerbation: Status: Acute (2) Subclinical hyperthyroidism: Status: Acute (3) Inappropriate sinus node tachycardia: Status: Acute (4) POTS (postural orthostatic tachycardia syndrome): Status: Acute Plan 35-year-old female with a past medical history of asthma/COPD, subclinical hypothyroidism, pots syndrome, diabetes presented to the hospital with a chief complaint of shortness of breath.? Noted to be in acute asthma exacerbation.? Admitted for further management. Acute asthma/COPD exacerbation: Persistent cough and chest tightness, diminished breath sound on examination, continue IV Solu-Medrol , continue Xopenex, not on DuoNeb since history of POTS/ and SVT on cough medication, Claritin and azithromycin, for possible bronchitis continue Tessalon Perles p.r.n. Rapid COVID and influenza negative.? no evidence of severe sepsis, tachycardia due to albuterol, leukocytosis likely due to steroids and 1 low blood pressure reading likely due to history of postural orthostatic tachycardia syndrome. migraine headache will place on Fioricet, follow clinical course. History of diabetes: not on home medication continue? Insulin sliding scale and monitor blood sugars History of pots:?? continue tele?monitor/ tachycardia due to inhaler History of SVT:? 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 Has not taken her metoprolol, noted to have elevated pulse in ED therefore placed on metoprolol 12.5 mg b.i.d. with holding parameters heart rate better controlled DVT prophylaxis:? Lovenox Code status:? Full code continue inpatient hospitalization due to persistent chest tightness, diminished breath sounds, requiring IV Solu Medrol and scheduled updraft treatment. Quality Stroke Does the patient have a stroke diagnosis?: No VTE Prior VTE?: No VTE Risk Level:: Medical - moderate - high VTE Device Contraindication: Treatment Not Indicated VTE Drug Contraindication: N/A - Med Ordered
[2021-05-25 16:51] LABS: Glucose, Whole Blood 176 mg/dL (60-115)
[2021-05-25] MEDS: Insulin Lispro 100 UNIT/ML 3 ML VIAL SUBCUT (17:00)
[2021-05-25 20:56] LABS: Glucose, Whole Blood 150 mg/dL (60-115)
[2021-05-25] MEDS: methylPREDNISolone Sod Succ 40 MG/ML VIAL IVPUSH (21:52)
[2021-05-25] MEDS: Zolpidem Tartrate 5 MG TABLET PO (21:59)
[2021-05-26 03:16] VITALS: BP 105/60; PULSE 70; RESP 20; TEMP 36.3; O2SAT 96
[2021-05-26] MEDS: methylPREDNISolone Sod Succ 40 MG/ML VIAL IVPUSH ×2 (03:36→13:27)
[2021-05-26] MEDS: Azithromycin 500 MG TABLET PO (03:36)
[2021-05-26 07:15] LABS: Glucose, Whole Blood 123 mg/dL (60-115)
[2021-05-26 07:37] VITALS: BP 104/63; PULSE 73; RESP 17; TEMP 37.3; O2SAT 98
[2021-05-26] MEDS: Loratadine 10 MG TABLET PO (09:40)
[2021-05-26] MEDS: Divalproex Sodium ER 500 MG TAB.ER.24H PO (09:40)
[2021-05-26] MEDS: Metoprolol Tartrate 12.5 MG HALFTAB PO (09:40)
[2021-05-26] MEDS: guaiFENesin DM 200/20/10 ML 10 ML SYRUP PO (09:42)
[2021-05-26] MEDS: 0.9 % Sodium Chloride Flush 3 ML SYRINGE IVFLUSH (09:43)
[2021-05-26 11:20] VITALS: BP 103/55; PULSE 81; RESP 17; TEMP 37.2; O2SAT 96
[2021-05-26 11:48] LABS: Glucose, Whole Blood 126 mg/dL (60-115)
--- NOTE | 2021-05-26 12:00 | MHC.CM.PN ---
IMM 05/24/20 Female 35 DX Asthma exacerbation She is discharged to home no services. She has arranged private transport to home.
--- NOTE | 2021-05-26 13:03 | PM.DS ---
DS: Providers Provider Date of Service: 05/26/21 Date of admission: 05/24/21 02:11 Primary care physician: None Physician Consults: 05/24/21 02:10 Consult to Pulmonology Routine Consulting Provider: Osmany Salcido Reason for consultation: acute asthma exacerbation DS: Diagnosis Discharge Diagnosis (1) Asthma with exacerbation: Status: Acute (2) Subclinical hyperthyroidism: Status: Acute (3) Inappropriate sinus node tachycardia: Status: Acute (4) POTS (postural orthostatic tachycardia syndrome): Status: Acute DS: Summary Hospital Course Hospital Course: Chief Complaint: sob 35-year-old female with a past medical history of diabetes, asthma/COPD, pots syndrome, subclinical hypothyroidism presented to the hospital today with a chief complaint of shortness of breath.? Patient reports that over the past 1 week she is having shortness of breath which has been gradually worsening; associated cough; denies any sputum production.? Also mentioned she initially had upper respiratory symptoms including runny nose and body aches Patient also reports chest discomfort/tightness; attributes mainly to the posttussive.? Denies any fevers.? Mentions she tried to use her home inhalers/nebulizers with no significant improvement.? Denies any GI symptoms.? Denies any numbness tingling or focal weakness.? Review of all other systems is negative except mentioned above ER course: Per ER team patient on presentation noted to be tight on examination; given nebulizations, magnesium, Solu-Medrol; patient was saturating 95% on room air; mentioned patient not in respiratory distress; admitted to the hospital for further management. hospital course 35-year-old female with a past medical history of asthma/COPD, subclinical hypothyroidism, pots syndrome, diabetes presented to the hospital with a chief complaint of shortness of breath.? Noted to be in acute asthma exacerbation.? Admitted for further management. Acute asthma/COPD exacerbation, patient admitted to medical floor treated with IV Solu Medrol, azithromycin, scheduled and as needed Xopenex UD, did not use albuterol due to history of SVT /POTS, also required cough medications, Claritin patient responded well to above treatment, chest x-ray showed no infiltrate, rapid COVID and influenza negative, patient had no evidence of sepsis she had mild tachycardia due to albuterol since patient's symptoms have significantly improved she is being discharged home on prednisone for 5 more days , Xopenex updraft and recommended to continue home inhalers.: Migraine headache resolved was treated with Fioricet. History of diabetes: not on home medication recommend to follow diabetic diet History of pots:?? had no acute issues with postural hypotension or tachycardia. History of SVT:? Patient reports that she has not seen her advertising manager in 3 months,has not taken her metoprolol, recommend outpatient follow-up with Cardiology patient was treated with low-dose metoprolol but has been discontinued upon discharge. Time Spent with Patient Time attestation: Total time spent providing and/or coordinating discharge services: Discharge coordination time: Greater than 30 minutes Quality: Safe Use of Opioids Does Pt have an Active Cancer Diagnosis on the Problem List?: No Quality: Stroke Does the patient have a stroke diagnosis?: No Physical Exam Vital Signs: Vital Signs: Last Vital Signs Temp 99.0 F 05/26/21 11:20 Pulse 81 05/26/21 11:20 Resp 17 05/26/21 11:20 BP 103/55 L 05/26/21 11:20 Pulse Ox 96 05/26/21 11:20 BMI result Body Mass Index 22.6 Const: Other: General ? Awake alert, in no acute distress.? Neck no JVD. CVS? regular rate rhythm, Respiratory lungs No wheeze,no use of accessory muscles, diminished breath sounds Gastrointestinal abdomen soft, nontender, bowel sounds audible, Extremities no edema. Neuro nonfocal Skin no rash psych appropriate affect DS: Data Data Completed and Pending Labs on day of discharge: Laboratory Results - last 24 hr 05/25/21 05/25/21 05/26/21 16:03 20:53 07:10 POC Glucose 176 H 150 H 123 H 05/26/21 11:22 POC Glucose 126 H Discharge Plan Discharge Patient Disposition: Home, Self-Care Discharge Diagnosis: acute asthma exacerbation Referrals: Physician,None [Primary Care Provider] - 2 days Discharge Medications: New azithromycin 500 mg Tablet 500 mg PO Q24H Qty: 3 0RF prednisone 20 mg tablet 20 mg PO DAILY Qty: 5 0RF levalbuterol HCl [Xopenex Concentrate] 1.25 mg/0.5 mL Solution For Nebulization 1.25 mg inhalation RQ4H WHILE AWAKE Qty: 100 0RF Continued clonazepam 1 mg tablet 1 mg PO DAILY PRN (Reason: Anxiety) 0RF divalproex [Depakote ER] 500 mg tablet extended release 24 hr 500 mg PO BID 0RF fluticasone propion-salmeterol [Advair Diskus] 500-50 mcg/dose blister with device 1 inh inhalation BID Qty: 60 0RF zolpidem 10 mg tablet 1 tab PO BEDTIME PRN (Reason: Sleep) 0RF Discharge Orders: Discharge Order (Routine); Ordered 05/26/21 Ordered By: Omaira Alexander Diet: advance to usual diet Activity on Discharge: As tolerated Stand Alone Forms: Patient Portal Discharge page, Work/School Release Activity Restrictions/Additional Instructions: Your laboratory studies were reassuring. Your flu/ COVID swabs were negative. Your x-ray was within normal limits. Your cardiac enzyme was normal. Your EKG looked good. Care Plan Goals: acute asthma exacerbation take prednisone 20 mg twice daily for 5 more days, take azithromycin for 3 days and use updraft treatment 4 times a day and follow-up with pulmonology take Xopenex updraft 4 times a day daily and use Xopenex inhaler every 2-3 hours as needed for shortness of breath. Health Concerns: POTS/SVT take all home medications as prescribed Plan of Treatment: follow-up with pulmonology in 1-2 weeks Assessment: per natarbruce summary Patient Instructions: Asthma (ED), Musculoskeletal Pain (ED), Shortness of Breath (ED)
[2021-05-26] MEDS: Butalb/Acetamin/Caff 50/325/40 TABLET 1 TAB PO (13:25)
== END 2021-05-26 13:42 | disposition home or self-care (01) | DRG 202 ==
LOC: HO.ED 05-24 02:01 → HO.EDOVER 05-24 02:22 → HO.IMC 05-24 13:34
PROVIDERS: Physician Assistant; Admitting Provider Hospitalist; Emergency Provider Emergency Medicine Emergency Medical Services; PCP Nurse Practitioner Family; Visit Provider Hospitalist
DX: J45.31 Mild persistent asthma with (acute) exacerbation (principal); J44.1 Chronic obstructive pulmonary disease with (acute) exacerbation; I47.1 Supraventricular tachycardia; I49.8 Other specified cardiac arrhythmias; G43.909 Migraine, unspecified, not intractable, without status migrainosus; E11.9 Type 2 diabetes mellitus without complications; E03.9 Hypothyroidism, unspecified; Z20.822 Contact with and (suspected) exposure to COVID-19; Z91.19 Patient's noncompliance with other medical treatment and regimen; Z86.14 Personal history of Methicillin resistant Staphylococcus aureus infection; Z79.51 Long term (current) use of inhaled steroids; Z79.52 Long term (current) use of systemic steroids; Z79.899 Other long term (current) drug therapy
CPT/HCPCS: 0241U; 36415; 71045; 80048; 80053; 82550; 82803; 82947; 84484; 85025; 87502; 87635; 87651; 93005; 94640; 94644; 94645; 96365; 96366; 96375; 99219; 99284; 99285; J1650; J2920; J2930; J3475

== ENCOUNTER 2021-07-02 11:41 | Outpatient (REF) | payer OTHER, SELFPAY ==
[2021-07-02 11:59] LABS: MANUAL DIFF FLAG NO
[2021-07-02 12:19] LABS: Basophils Absolute Auto 0.1 X10*3/uL (0.0-0.2); Eosinophils Absolute Auto 0.1 X10*3/uL (0.0-0.4); Eosinophils Percent Auto 1.9 % (0-4); Hematocrit 40.7 % (37.0-47.0); Hemoglobin 13.7 g/dl (12.0-16.0); Imm Gran Abs Auto 0.03 X10*3/uL (0.00-0.03); Imm Gran Pct Auto 0.4 % (0.0-0.4); Lymphocytes Absolute Auto 1.7 X10*3/uL (1.2-4.9); Lymphocytes Percent Auto 22.6 % (20-40); Mean Corpuscular HGB Conc 33.7 g/dl (31.0-35.0); Mean Corpuscular Hemoglobin 29.2 pg (27.0-33.0); Mean Corpuscular Volume 86.8 fL (80.0-98.0); Mean Platelet Volume 10.4 fL (9.4-12.3); Monocytes Absolute Auto 0.4 X10*3/uL (0.1-1.2); Monocytes Percent Auto 4.9 % (2-11); Neutrophils Percent Auto 69.2 % (45-73); Platelet Count 301 X10*3/uL (160-400); Red Blood Count 4.69 X10*6/uL (4.20-5.50); Red Cell Distribution Width 12.6 % (11.0-16.0); White Blood Count 7.3 X10*3/uL (4.8-10.8)
[2021-07-02 12:50] LABS: Alanine Aminotransferase 10 U/L (0-31); Aspartate Amino Transferase 15 U/L (5-31); Estimated Glomerular Filt Rate > 60
[2021-07-02 13:11] LABS: Syphilis Screen Nonreactive (Nonreactive)
[2021-07-02 15:07] LABS: CT PCR NOT DETECTED (Not Detect.); NG PCR NOT DETECTED (Not Detect.)
[2021-07-05 07:28] LABS: HIV AB/AG Nonreactive (Nonreactive)
== END 2021-07-02 11:42 | disposition home or self-care (01) ==
LOC: HO.LAB 11:41
PROVIDERS: Visit Provider Internal Medicine Infectious Disease
DX: Z01.818 Encounter for other preprocedural examination (principal); Z11.4 Encounter for screening for human immunodeficiency virus [HIV]; Z11.3 Encounter for screening for infections with a predominantly sexual mode of transmission
CPT/HCPCS: 82565; 84450; 84460; 85025; 86780; 87389; 87491; 87591

== ENCOUNTER 2021-08-06 11:55 | Emergency (ER) | payer OTHER, SELFPAY ==
[2021-08-06 12:02] VITALS: BP 158/98; PULSE 120; RESP 18; TEMP 36.8; O2SAT 100; BMI 22.6
[2021-08-06] MEDS: Lidocaine HCl 1 % MPF 5 ML VIAL SUBCUT (12:44)
--- NOTE | 2021-08-06 12:56 | ED_ITS ---
HPI - Extremity Problem General Chief complaint: Extremity Problem Stated complaint: big toe pain after procedure Time Seen by Provider: 08/06/21 12:26 History of Present Illness HPI Narrative: Patient complains of pain in left big toe after she had a partial nail removal yesterday for an ingrown nail Related Data Home Medications Medication Instructions Recorded Confirmed clonazepam 1 mg tablet 1 mg PO DAILY PRN Anxiety 12/13/19 05/24/21 divalproex 500 mg tablet,extended 500 mg PO BID 07/10/20 05/24/21 release 24 hr (Depakote ER) zolpidem 10 mg tablet 1 tab PO BEDTIME PRN Sleep 05/24/21 05/24/21 Previous Rx's Medication Instructions Recorded fluticasone 500 mcg-salmeterol 50 1 inh inhalation BID #60 ea 07/12/20 mcg/dose blistr powdr for inhalation (Advair Diskus) azithromycin 500 mg tablet 500 mg PO Q24H #3 tabs 05/26/21 levalbuterol HCl 1.25 mg/0.5 mL 1.25 mg (0.5 mL) inhalation RQ4H 05/26/21 solution for nebulization (Xopenex WHILE AWAKE #100 ea Concentrate) prednisone 20 mg tablet 20 mg PO DAILY #5 tabs 05/26/21 acetaminophen 500 mg tablet 1,000 mg PO QID PRN pain #30 tabs 08/06/21 cephalexin 500 mg tablet 500 mg PO QID 7 days #28 tabs 08/06/21 ibuprofen 600 mg tablet 600 mg PO Q6H PRN pain #20 tabs 08/06/21 oxycodone 5 mg tablet 5 mg PO Q6H PRN pain #10 tabs 08/06/21 Allergies Allergy/AdvReac Type Severity Reaction Status Date / Time somatropin [SOMATROPIN] Allergy Unknown UNKNOWN Verified 05/23/21 17:48 amitriptyline [AMITRIPTYLINE] AdvReac Intermediate NAUSEA, Verified 05/23/21 1 7:48 DIZZINESS albuterol [ALBUTEROL] AdvReac Mild TACHYCARDIA Verified 05/23/21 17:48 esomeprazole [From NEXIUM] AdvReac Mild TACHYCARDIA Verified 05/23/21 17:48 Review of Systems Review of Systems: Positive for left big toe pain after nail removal at the electrical plumbing supervisor Negative no fever no chills no headache no neck pain no shortness of breath no rash no other joint pains Yes all other systems are reviewed and are negative [facility] Past Medical History Source: nursing notes reviewed Medical History Asthma with COPD with exacerbation Bipolar 1 disorder Carpal tunnel syndrome COPD (chronic obstructive pulmonary disease) Diabetes mellitus Family history of COPD (chronic obstructive pulmonary disease) Fibromyalgia History of MRSA infection Inappropriate sinus node tachycardia Kidney stones Polycystic ovarian disease Postural orthostatic tachycardia syndrome POTS (postural orthostatic tachycardia syndrome) Schizoaffective disorder Subclinical hyperthyroidism SVT (supraventricular tachycardia) UTI (urinary tract infection) Surgical History History of renal stent History of tubal ligation Hx of abdominoplasty Hx of lithotripsy Tubal ligation status Family History Family History Other COPD (chronic obstructive pulmonary disease) Social History Social History Household Members: Children Housing: House Do you presently have visiting nurse or other home services: No Alcohol intake: never Patient Tobacco Use Status: Never used Tobacco Second Hand Smoke Exposure: No Advance Directives: No Advance Directives Information Provided: No service: No Current occupational status: unemployed Physical Exam Vital Signs: Vital Signs: Last Vital Signs Temp 98.3 F 08/06/21 12:02 Pulse 120 H 08/06/21 12:02 Resp 18 08/06/21 12:02 BP 158/98 H 08/06/21 12:02 Pulse Ox 100 08/06/21 12:02 O2 Del Method 08/06/21 12:02 BMI result Body Mass Index 22.6 General appearance uncomfortable but no acute distress Head is normocephalic atraumatic Neck is supple Respiratory no distress Extremities full range of motion x4 Left big toe the medial aspect of the left big toenail has been removed, there is some mild redness surrounding the area, there is no swelling, neurovascular intact Course Course Course Narrative: Patient was given a digital block with good relief and an Ativan as she had did very anxious and was discharged with a filler sifter helper to follow with electrical plumbing supervisor as well as given a prescription for pain medicine Discharge Plan Discharge Clinical Impression: Cellulitis Patient Disposition: Home, Self-Care Additional Instructions: I wrote for Motrin Tylenol and oxycodone only if needed for pain Because the toe was now red and may be infected we are using a prescription for antibiotic Keflex Probiotics help to prevent diarrhea from antibiotics so get probiotics [id number] in the pharmacy Follow with electrical plumbing supervisor on Monday or Monday to recheck the toe Return any time for spreading redness swelling fever any worse condition or any concern any sign of worsening infection Prescriptions: New cephalexin 500 mg tablet 500 mg PO QID 7 Days Qty: 28 0RF ibuprofen 600 mg tablet 600 mg PO Q6H PRN (Reason: pain) Qty: 20 0RF acetaminophen 500 mg tablet 1,000 mg PO QID PRN (Reason: pain) Qty: 30 0RF oxycodone 5 mg tablet 5 mg PO Q6H PRN (Reason: pain) Qty: 10 0RF Rx Instructions: Partial Fill upon patient request. No Action clonazepam 1 mg tablet 1 mg PO DAILY PRN (Reason: Anxiety) divalproex [Depakote ER] 500 mg tablet extended release 24 hr 500 mg PO BID fluticasone propion-salmeterol [Advair Diskus] 500-50 mcg/dose blister with device 1 inh inhalation BID Qty: 60 0RF zolpidem 10 mg tablet 1 tab PO BEDTIME PRN (Reason: Sleep) azithromycin 500 mg Tablet 500 mg PO Q24H Qty: 3 0RF prednisone 20 mg tablet 20 mg PO DAILY Qty: 5 0RF levalbuterol HCl [Xopenex Concentrate] 1.25 mg/0.5 mL Solution For Nebulization 1.25 mg inhalation RQ4H WHILE AWAKE Qty: 100 0RF Interventions: ED Discharge Assessment Last Done: 08/06/21 13:29 Discharge Date/Time: 08/06/21 13:31
[2021-08-06] MEDS: LORazepam 1 MG TABLET PO (12:59)
[2021-08-06] MEDS: cephALEXin 500 MG CAPSULE PO (13:10)
== END 2021-08-06 13:31 | disposition home or self-care (01) ==
PROVIDERS: Emergency Provider Student in an Organized Health Care Education/Training Program
DX: L03.032 Cellulitis of left toe (principal); E11.9 Type 2 diabetes mellitus without complications; J44.9 Chronic obstructive pulmonary disease, unspecified; Z98.890 Other specified postprocedural states
CPT/HCPCS: 99283; 99284

== ENCOUNTER 2021-08-16 15:39 | Emergency (ER) | payer OTHER, SELFPAY | END 2021-08-16 17:12 | disposition left against medical advice (07) | PROVIDERS: Emergency Provider Emergency Medicine | DX: M79.676 Pain in unspecified toe(s) (principal) ==

== ENCOUNTER 2021-08-17 00:15 | Emergency (ER) | payer OTHER, SELFPAY ==
--- NOTE | ~2021-08-17 | XR_ITS ---
EXAMINATION: XR FOOT, LEFT CLINICAL INFORMATION: Cellulitis. Rule out bone infection. COMPARISON: None TECHNIQUE: AP, lateral, and oblique views of the left foot. FINDINGS: There is no fracture or dislocation. Alignment is anatomic. Joint spaces are maintained. No osseous erosion. The soft tissues are unremarkable. XR/XR foot LT 2V IMPRESSION: Normal left foot. No osseous erosion.
[2021-08-17 00:45] VITALS: BP 113/89; PULSE 68; RESP 16; TEMP 36.8; O2SAT 98; BMI 23.0
[2021-08-17 01:09] VITALS: RESP 16
--- NOTE | 2021-08-17 01:12 | ED_ITS ---
HPI - Skin/Abscess/Foreign Bdy General Chief complaint: Skin/Abscess/Foreign Body Stated complaint: cellulitis, PT was here earlier today Time Seen by Provider: 08/17/21 01:12 Source: patient Mode of arrival: ambulatory Limitations: no limitations History of Present Illness HPI narrative: Patient had an ingrown toenail, it was trimmed back and got infected. patient had this done 2 weeks ago. Patient has diabetes. Related Data Home Medications Medication Instructions Recorded Confirmed clonazepam 1 mg tablet 1 mg PO DAILY PRN Anxiety 12/13/19 05/24/21 divalproex 500 mg tablet,extended 500 mg PO BID 07/10/20 05/24/21 release 24 hr (Depakote ER) zolpidem 10 mg tablet 1 tab PO BEDTIME PRN Sleep 05/24/21 05/24/21 Previous Rx's Medication Instructions Recorded fluticasone 500 mcg-salmeterol 50 1 inh inhalation BID #60 ea 07/12/20 mcg/dose blistr powdr for inhalation (Advair Diskus) azithromycin 500 mg tablet 500 mg PO Q24H #3 tabs 05/26/21 levalbuterol HCl 1.25 mg/0.5 mL 1.25 mg (0.5 mL) inhalation RQ4H 05/26/21 solution for nebulization (Xopenex WHILE AWAKE #100 ea Concentrate) prednisone 20 mg tablet 20 mg PO DAILY #5 tabs 05/26/21 acetaminophen 500 mg tablet 1,000 mg PO QID PRN pain #30 tabs 08/06/21 cephalexin 500 mg tablet 500 mg PO QID 7 days #28 tabs 08/06/21 ibuprofen 600 mg tablet 600 mg PO Q6H PRN pain #20 tabs 08/06/21 oxycodone 5 mg tablet 5 mg PO Q6H PRN pain #10 tabs 08/06/21 amoxicillin 875 mg-potassium 1 tab PO BID #20 tabs 08/17/21 clavulanate 125 mg tablet Allergies Allergy/AdvReac Type Severity Reaction Status Date / Time somatropin [SOMATROPIN] Allergy Unknown UNKNOWN Verified 05/23/21 17:48 amitriptyline [AMITRIPTYLINE] AdvReac Intermediate NAUSEA, Verified 05/23/21 17:48 DIZZINESS albuterol [ALBUTEROL] AdvReac Mild TACHYCARDIA Verified 05/23/21 17:48 esomeprazole [From NEXIUM] AdvReac Mild TACHYCARDIA Verified 05/23/21 17:48 Review of Systems Neurologic: Denies Sensory deficit (Neuro) [facility] Past Medical History Medical History Asthma with COPD with exacerbation Bipolar 1 disorder Carpal tunnel syndrome COPD (chronic obstructive pulmonary disease) Diabetes mellitus Family history of COPD (chronic obstructive pulmonary disease) Fibromyalgia History of MRSA infection Inappropriate sinus node tachycardia Kidney stones Polycystic ovarian disease Postural orthostatic tachycardia syndrome POTS (postural orthostatic tachycardia syndrome) Schizoaffective disorder Subclinical hyperthyroidism SVT (supraventricular tachycardia) UTI (urinary tract infection) Surgical History History of renal stent History of tubal ligation Hx of abdominoplasty Hx of lithotripsy Tubal ligation status Family History Family History Other COPD (chronic obstructive pulmonary disease) Social History Social History Household Members: Children Housing: House Do you presently have visiting nurse or other home services: No Alcohol intake: never Patient Tobacco Use Status: Never used Tobacco Second Hand Smoke Exposure: No Use of substances other than those prescribed or required for medical reasons: No Advance Directives: No Advance Directives Information Provided: Yes Patient : No service: No Current occupational status: unemployed Physical Exam Vital Signs: Vital Signs: Last Vital Signs Temp 98.3 F 08/17/21 00:45 Pulse 68 08/17/21 00:45 Resp 16 08/17/21 01:09 BP 113/89 08/17/21 00:45 Pulse Ox 98 08/17/21 00:45 O2 Del Method 08/17/21 00:45 BMI result Body Mass Index 23.0 Const: General: healthy appearing Nutritional Appearance: average body habitus Orientation/consciousness: oriented to person and patient oriented x3 Limitations: no limitations HEENT: Head: Yes normal to inspection Ears: external ears normal General nose exam: Normal external nose present Mouth: Normal oral and palatal mucosa present and oropharynx normal Throat: Yes posterior oropharynx normal Eyes: General: appearance normal, both eyes and all related structures Neck: Other: supple Neck: Yes normal visual inspection Chest: Chest palpation & inspection: normal inspection of the chest Resp: Auscultation: clear to auscultation bilaterally Cardio: Jugular venous distension: no JVD Rate: regular rate Rhythm: regular rhythm Heart sounds: S1 normal heart sound present and S2 normal heart sound present GI: Inspection: Yes normal to inspection Palpation (GI): Soft to palpation, nontender and No hepatosplenomegaly present Auscultation: normal bowel sounds : General: Yes no CVA tenderness Back/Spine/Pelvis: Back: no CVA tenderness Skin: General skin exam: no rashes or lesions noted Neuro: General: oriented to person and patient oriented x3 Cranial nerves: Yes CN's II-XII intact bilaterally Motor exam (neuro): 5/5 motor strength present throughout Sensory Exam: No Sensory deficit (Neuro) Extrem: Other: left great toe with slight induration and erythema no evidence of abscess Psych: Appearance: grossly normal Course Reevaluation(s) Reevaluation #1: no evidence of abscess or osteo. Will place on augmentin for 10 days Time: 03:12 MDM - Skin/Abscess/Foreign Bdy Lab Data Result diagrams: 08/17/21 01:39 08/17/21 01:39 Labs: Lab Results 08/17/21 08/17/21 Range/Units 01:39 01:39 WBC 9.8 (4.8-10.8) X10*3/uL RBC 4.78 (4.20-5.50) X10*6/uL Hgb 13.9 (12.0-16.0) g/dl Hct 41.8 (37.0-47.0) % MCV 87.4 (80.0-98.0) fL MCH 29.1 (27.0-33.0) pg MCHC 33.3 (31.0-35.0) g/dl RDW 12.4 (11.0-16.0) % Plt Count 341 (160-400) X10*3/uL MPV 10.2 (9.4-12.3) fL Immature Gran % (Auto) 0.3 (0.0-0.4) % Neut % (Auto) 51.4 (45-73) % Lymph % (Auto) 36.0 (20-40) % [place] % (Auto) 8.7 (2-11) % Eos % (Auto) 2.9 (0-4) % Baso % (Auto) 0.7 (0-2) % Lymph # (Auto) 3.5 (1.2-4.9) X10*3/uL [place] # (Auto) 0.9 (0.1-1.2) X10*3/uL Eos # (Auto) 0.3 (0.0-0.4) X10*3/uL Baso # (Auto) 0.1 (0.0-0.2) X10*3/uL Abs Immat Gran (auto) 0.03 (0.00-0.03) X10*3/uL Absolute Neuts (auto) 5.1 (2.0-8.3) x10*3/uL Absolute Nucleated RBC 0.000 (0.0-0.012) X10*3/uL Nucleated RBC % (auto) 0.0 (0.0-0.2) /100WBC Sodium 141 (135-145) mmol/L Potassium 4.2 D (3.3-5.1) mmol/L Chloride 105 (96-108) mmol/L Carbon Dioxide 29 (22-29) mmol/L Anion Gap 11 L (12-20) BUN 13 D (9-16) mg/dL Creatinine 0.75 (0.5-1.4) mg/dL Estim Creat Clear Calc 76.6 Estimated GFR > 60 Random Glucose 98 (60-115) mg/dL Calcium 9.7 (8.4-10.2) mg/dL Imaging Data toe: Radiologist's impression: FINDINGS: There is no fracture or dislocation. Alignment is anatomic. Joint spaces are maintained. No osseous erosion. The soft tissues are unremarkable.? XR/XR foot LT 2V IMPRESSION: Normal left foot. No osseous erosion. Discharge Plan Discharge Clinical Impression: Cellulitis Patient Disposition: Home, Self-Care Instructions: Cellulitis (ED) Prescriptions: New amoxicillin-pot clavulanate 875-125 mg tablet 1 tab PO BID Qty: 20 0RF No Action clonazepam 1 mg tablet 1 mg PO DAILY PRN (Reason: Anxiety) divalproex [Depakote ER] 500 mg tablet extended release 24 hr 500 mg PO BID fluticasone propion-salmeterol [Advair Diskus] 500-50 mcg/dose blister with device 1 inh inhalation BID Qty: 60 0RF cephalexin 500 mg tablet 500 mg PO QID 7 Days Qty: 28 0RF ibuprofen 600 mg tablet 600 mg PO Q6H PRN (Reason: pain) Qty: 20 0RF acetaminophen 500 mg tablet 1,000 mg PO QID PRN (Reason: pain) Qty: 30 0RF oxycodone 5 mg tablet 5 mg PO Q6H PRN (Reason: pain) Qty: 10 0RF Rx Instructions: Partial Fill upon patient request. zolpidem 10 mg tablet 1 tab PO BEDTIME PRN (Reason: Sleep) azithromycin 500 mg Tablet 500 mg PO Q24H Qty: 3 0RF prednisone 20 mg tablet 20 mg PO DAILY Qty: 5 0RF levalbuterol HCl [Xopenex Concentrate] 1.25 mg/0.5 mL Solution For Nebulization 1.25 mg inhalation RQ4H WHILE AWAKE Qty: 100 0RF
[2021-08-17] MEDS: Ampicillin Sodium/Sulbactam Na 3 GM in 0.9 % Sodium Chloride 100 ML IV (01:41)
[2021-08-17 01:43] LABS: MANUAL DIFF FLAG NO
[2021-08-17 01:45] LABS: Basophils Absolute Auto 0.1 X10*3/uL (0.0-0.2); Basophils Percent Auto 0.7 % (0-2); Eosinophils Absolute Auto 0.3 X10*3/uL (0.0-0.4); Eosinophils Percent Auto 2.9 % (0-4); Hematocrit 41.8 % (37.0-47.0); Hemoglobin 13.9 g/dl (12.0-16.0); Imm Gran Abs Auto 0.03 X10*3/uL (0.00-0.03); Imm Gran Pct Auto 0.3 % (0.0-0.4); Lymphocytes Absolute Auto 3.5 X10*3/uL (1.2-4.9); Mean Corpuscular HGB Conc 33.3 g/dl (31.0-35.0); Mean Corpuscular Hemoglobin 29.1 pg (27.0-33.0); Mean Corpuscular Volume 87.4 fL (80.0-98.0); Mean Platelet Volume 10.2 fL (9.4-12.3); Monocytes Absolute Auto 0.9 X10*3/uL (0.1-1.2); Monocytes Percent Auto 8.7 % (2-11); Neutrophils Absolute Auto 5.1 x10*3/uL (2.0-8.3); Neutrophils Percent Auto 51.4 % (45-73); Platelet Count 341 X10*3/uL (160-400); Red Blood Count 4.78 X10*6/uL (4.20-5.50); Red Cell Distribution Width 12.4 % (11.0-16.0); White Blood Count 9.8 X10*3/uL (4.8-10.8)
[2021-08-17 02:14] LABS: Anion Gap 11 (12-20); Blood Urea Nitrogen 13 mg/dL (9-16); Calcium 9.7 mg/dL (8.4-10.2); Carbon Dioxide 29 mmol/L (22-29); Chloride 105 mmol/L (96-108); Creatinine Clr Calc Pharmacy 76.6; Estimated Glomerular Filt Rate > 60; Glucose Random 98 mg/dL (60-115); Potassium 4.2 mmol/L (3.3-5.1); Sodium 141 mmol/L (135-145)
== END 2021-08-17 03:22 | disposition home or self-care (01) ==
PROVIDERS: Emergency Provider Emergency Medicine
DX: L03.032 Cellulitis of left toe (principal); E11.9 Type 2 diabetes mellitus without complications; J44.9 Chronic obstructive pulmonary disease, unspecified
CPT/HCPCS: 36415; 73620; 80048; 85025; 96365; 99284; J0295

== ENCOUNTER → 2021-08-19 13:52 | Outpatient (BNVA) | payer OTHER, SELFPAY | PROVIDERS: Visit Provider Internal Medicine Cardiovascular Disease | DX: R00.0 Tachycardia, unspecified (principal) | CPT/HCPCS: 99212 ==

== ENCOUNTER 2021-11-16 16:02 | Outpatient (REF) | payer OTHER, SELFPAY ==
[2021-11-16 16:33] LABS: MANUAL DIFF FLAG NO
[2021-11-16 16:41] LABS: Basophils Absolute Auto 0.1 X10*3/uL (0.0-0.2); Basophils Percent Auto 0.9 % (0-2); Eosinophils Absolute Auto 0.2 X10*3/uL (0.0-0.4); Eosinophils Percent Auto 2.3 % (0-4); Hematocrit 41.7 % (37.0-47.0); Hemoglobin 13.7 g/dl (12.0-16.0); Imm Gran Abs Auto 0.03 X10*3/uL (0.00-0.03); Imm Gran Pct Auto 0.3 % (0.0-0.4); Lymphocytes Absolute Auto 1.9 X10*3/uL (1.2-4.9); Lymphocytes Percent Auto 18.4 % (20-40); Mean Corpuscular HGB Conc 32.9 g/dl (31.0-35.0); Mean Corpuscular Hemoglobin 28.8 pg (27.0-33.0); Mean Corpuscular Volume 87.8 fL (80.0-98.0); Mean Platelet Volume 10.3 fL (9.4-12.3); Monocytes Absolute Auto 0.6 X10*3/uL (0.1-1.2); Monocytes Percent Auto 5.7 % (2-11); Neutrophils Absolute Auto 7.4 x10*3/uL (2.0-8.3); Neutrophils Percent Auto 72.4 % (45-73); Platelet Count 369 X10*3/uL (160-400); Red Blood Count 4.75 X10*6/uL (4.20-5.50); Red Cell Distribution Width 12.8 % (11.0-16.0); White Blood Count 10.2 X10*3/uL (4.8-10.8)
[2021-11-16 17:11] LABS: Alanine Aminotransferase 12 U/L (0-31); Aspartate Amino Transferase 14 U/L (5-31); Estimated Glomerular Filt Rate > 60
[2021-11-17 05:06] LABS: HBsAGNum1 0.15 S/CO (0.00-0.99); HIV AB/AG Nonreactive (Nonreactive); Hepatitis B Surface Antigen Negative (Negative); ~HepC Num1 0.04 S/CO (0.00-0.79); ~Hepatitis C Antibody Nonreactive (Nonreactive)
[2021-11-17 05:17] LABS: Syphilis Screen Nonreactive (Nonreactive)
[2021-11-18 10:26] LABS: Cytomegalovirus Ab IgG <0.60 U/mL; Cytomegalovirus Ab IgM <30.00 AU/mL
== END 2021-11-16 16:03 | disposition home or self-care (01) ==
LOC: HO.LAB 16:02
PROVIDERS: Visit Provider Internal Medicine Infectious Disease
DX: Z11.4 Encounter for screening for human immunodeficiency virus [HIV] (principal); B19.10 Unspecified viral hepatitis B without hepatic coma; Z20.6 Contact with and (suspected) exposure to human immunodeficiency virus [HIV]; Z20.2 Contact with and (suspected) exposure to infections with a predominantly sexual mode of transmission
CPT/HCPCS: 36415; 82565; 84450; 84460; 85025; 86644; 86645; 86780; 86803; 87340; 87389

== ENCOUNTER 2021-12-27 11:28 | Emergency (ER) | payer OTHER, SELFPAY ==
--- NOTE | ~2021-12-27 | CT_ITS ---
EXAMINATION: CT ABDOMEN AND PELVIS WITHOUT CONTRAST CLINICAL INFORMATION: Right flank pain COMPARISON: 11/25/2020 TECHNIQUE: Multidetector volumetric imaging was performed from the superior aspect of the liver through the pubic symphysis. Sagittal and coronal reformatted images were obtained on the technologist's workstation. This CT examination was performed using dose optimization techniques as appropriate, variously including the following: *Automated exposure control *Adjustment of mA and/or kV according to patient size (this includes techniques or standardized protocols for targeted exams where dose is matched to indication/reason for exam; i.e. extremities or head) *Use of iterative reconstruction technique DLP: 309 mGy-cm FINDINGS: LUNG BASES: The visualized lung bases are unremarkable. LIVER, GALLBLADDER, AND BILIARY TREE: The liver is normal in size, shape, and attenuation. No focal hepatic lesion or biliary ductal dilatation is present. The gallbladder is unremarkable with no evidence of radiopaque gallstones, gallbladder wall thickening, or obvious pericholecystic inflammatory changes. PANCREAS: Questionable mild peripancreatic fat stranding. SPLEEN: Unremarkable. ADRENAL GLANDS: Unremarkable. KIDNEYS AND URETERS: There are bilateral nonobstructive intrarenal calculi numbering at least 4 within each kidney. These calculi range in size from punctate to 3 mm. No hydronephrosis or perinephric abnormality. No ureteral calculi are identified BLADDER: Unremarkable. GASTROINTESTINAL TRACT: The small and large bowel are unremarkable. The appendix is unremarkable. ABDOMINAL WALL: No significant hernia is appreciated. LYMPH NODES: Normal. VASCULAR: Unremarkable. PELVIC VISCERA: Uterus and ovaries unremarkable from a unenhanced CT imaging standpoint. OSSEOUS STRUCTURES: No acute or suspicious osseous abnormalities. CT/CT abdomen pelvis wo IV con IMPRESSION: * Questionable peripancreatic fat stranding about the pancreatic head and body. Please correlate with lipase. If normal, disregard. * Bilateral nonobstructive calculi. No ureteral calculi or hydronephrosis. Fleischner guidelines were followed.
[2021-12-27 11:41] VITALS: BP 130/102; PULSE 93; RESP 18; TEMP 36.8; O2SAT 99; BMI 21.5
--- NOTE | 2021-12-27 11:43 | ED.ABDPAIN ---
HPI - Abdominal Pain General Chief Complaint: Abdominal Pain Stated Complaint: vomiting r side pain Time Seen by Provider: 12/27/21 11:43 Source: patient Mode of arrival: ambulatory Limitations: no limitations History of Present Illness HPI narrative: right sided flank pain for a few day with pressure. last night patient states she had tactile fever MD elicited complaint: abdominal pain and flank pain Pertinent past history: kidney stones and past UTI Onset (ago): day(s) Pain Consistency: intermittent Location: R flank Severity: mild Quality: stabbing Radiation: R flank Exacerbating factors: nothing Relieving factors: nothing Associated symptoms: nausea and vomiting Related Data Home Medications Medication Instructions Recorded Confirmed clonazepam 1 mg tablet 1 mg PO DAILY PRN Anxiety 12/13/19 08/19/21 divalproex 500 mg tablet,extended 500 mg PO BID 07/10/20 08/19/21 release 24 hr (Depakote ER) zolpidem 10 mg tablet 1 tab PO BEDTIME PRN Sleep 05/24/21 08/19/21 Previous Rx's Medication Instructions Recorded fluticasone 500 mcg-salmeterol 50 1 inh inhalation BID #60 ea 07/12/20 mcg/dose blistr powdr for inhalation (Advair Diskus) levalbuterol HCl 1.25 mg/0.5 mL 1.25 mg (0.5 mL) inhalation RQ4H 05/26/21 solution for nebulization (Xopenex WHILE AWAKE #100 ea Concentrate) prednisone 20 mg tablet 20 mg PO DAILY #5 tabs 05/26/21 acetaminophen 500 mg tablet 1,000 mg PO QID PRN pain #30 tabs 08/06/21 ibuprofen 600 mg tablet 600 mg PO Q6H PRN pain #20 tabs 08/06/21 oxycodone 5 mg tablet 5 mg PO Q6H PRN pain #10 tabs 08/06/21 amoxicillin 875 mg-potassium 1 tab PO BID #20 tabs 08/17/21 clavulanate 125 mg tablet metoprolol succinate 25 mg 12.5 mg PO DAILY #90 tabs 08/19/21 tablet,extended release 24 hr naproxen 500 mg tablet (Naprosyn) 500 mg PO BID #20 tabs 12/27/21 Allergies Allergy/AdvReac Type Severity Reaction Status Date / Time somatropin [SOMATROPIN] Allergy Unknown UNKNOWN Verified 05/23/21 17:48 amitriptyline [AMITRIPTYLINE] AdvReac Intermediate NAUSEA, Verified 05/23/21 17:48 DIZZINESS albuterol [ALBUTEROL] AdvReac Mild TACHYCARDIA Verified 05/23/21 17:48 esomeprazole [From NEXIUM] AdvReac Mild TACHYCARDIA Verified 05/23/21 17:48 Review of Systems Constitutional: Reports no additional constitutional complaints Eyes: Reports no additional eye complaints Denies dizziness Cardiovascular: Reports no additional cardiovascular complaints Respiratory: Reports as per HPI Gastrointestinal: Reports no additional gastrointestinal complaints Genitourinary: Reports no additional female genitourinary complaints Musculoskeletal: Reports no additional musculoskeletal complaints Skin/Breast: Denies rash Reports system reviewed and no additional complaints, except as documented, Denies dizziness and Denies Sensory deficit (Neuro) Psychiatric: Denies anxiety PMFSH Past Medical History Medical History Asthma with COPD with exacerbation Bipolar 1 disorder Carpal tunnel syndrome COPD (chronic obstructive pulmonary disease) Diabetes mellitus Family history of COPD (chronic obstructive pulmonary disease) Fibromyalgia History of MRSA infection Inappropriate sinus node tachycardia Kidney stones Polycystic ovarian disease Postural orthostatic tachycardia syndrome POTS (postural orthostatic tachycardia syndrome) Schizoaffective disorder Subclinical hyperthyroidism SVT (supraventricular tachycardia) UTI (urinary tract infection) Surgical History History of renal stent History of tubal ligation Hx of abdominoplasty Hx of lithotripsy Tubal ligation status Family History Family History Other COPD (chronic obstructive pulmonary disease) Social History Social History Household Members: Children Housing: House Do you presently have visiting nurse or other home services: No Alcohol intake: never Patient Tobacco Use Status: Never used Tobacco Second Hand Smoke Exposure: No service: No Current occupational status: unemployed Physical Exam ED Vital Signs: Vital Signs - 24 hr 12/27/21 11:41 Temperature 98.3 F Pulse Rate 93 Respiratory Rate 18 Blood Pressure 130/102 H Pulse Oximetry 99 Oxygen Delivery Method Room Air BMI result Body Mass Index 21.5 Const Other: anxious tearful Nutritional Appearance: average body habitus Orientation/consciousness: oriented to person and patient oriented x3 Limitations: no limitations HENMT Head: Yes normal to inspection Ears: external ears normal General nose exam: Normal external nose present Mouth: Normal oral and palatal mucosa present and oropharynx normal Throat: Yes posterior oropharynx normal Eyes General: appearance normal, both eyes and all related structures Neck Neck: Yes normal visual inspection Chest Chest palpation & inspection: normal inspection of the chest Resp Auscultation: clear to auscultation bilaterally Cardio Jugular venous distension: no JVD Rate: regular rate Rhythm: regular rhythm Heart sounds: S1 normal heart sound present and S2 normal heart sound present GI Inspection: Yes normal to inspection Palpation (GI): Soft to palpation, nontender and No hepatosplenomegaly present Auscultation: normal bowel sounds Back/Spine/Pelvis Other: right CVAT Skin General skin exam: no rashes or lesions noted Neuro General: oriented to person and patient oriented x3 Cranial nerves: Yes CN's II-XII intact bilaterally Motor exam (neuro): 5/5 motor strength present throughout Sensory Exam: No Sensory deficit (Neuro) Extrem General: Yes normal to inspection Psych Appearance: grossly normal Course Reevaluation(s) Reevaluation #1: CT scan shows non obstructing stones no UTI will dc on NSaids Time: 15:24 Medications Administered Discontinued Medications Generic Name Dose Route Start Last Admin Trade Name Freq PRN Reason Stop Dose Admin Ondansetron HCl 4 mg 12/27/21 11:46 12/27/21 11:48 Ondansetron Odt 4 Mg Tab.Rapdis TRANSLINGU 12/27/21 11:47 4 mg ONCE ONE Administration MDM - Abdominal Pain Lab Data Result diagrams: 12/27/21 11:47 12/27/21 11:47 Labs: Lab Results 12/27/21 12/27/21 12/27/21 Range/Units 11:47 11:47 12:10 WBC 7.3 (4.8-10.8) X10*3/uL RBC 4.80 (4.20-5.50) X10*6/uL Hgb 13.9 (12.0-16.0) g/dl Hct 42.0 (37.0-47.0) % MCV 87.5 (80.0-98.0) fL MCH 29.0 (27.0-33.0) pg MCHC 33.1 (31.0-35.0) g/dl RDW 12.8 (11.0-16.0) % Plt Count 328 (160-400) X10*3/uL MPV 10.0 (9.4-12.3) fL Immature Gran % (Auto) 0.3 (0.0-0.4) % Neut % (Auto) 70.0 (45-73) % Lymph % (Auto) 18.3 L (20-40) % [place] % (Auto) 7.1 (2-11) % Eos % (Auto) 2.9 (0-4) % Baso % (Auto) 1.4 (0-2) % Lymph # (Auto) 1.3 (1.2-4.9) X10*3/uL [place] # (Auto) 0.5 (0.1-1.2) X10*3/uL Eos # (Auto) 0.2 (0.0-0.4) X10*3/uL Baso # (Auto) 0.1 (0.0-0.2) X10*3/uL Abs Immat Gran (auto) 0.02 (0.00-0.03) X10*3/uL Absolute Neuts (auto) 5.1 (2.0-8.3) x10*3/uL Absolute Nucleated RBC 0.000 (0.0-0.012) X10*3/uL Nucleated RBC % (auto) 0.0 (0.0-0.2) /100WBC Sodium 139 (135-145) mmol/L Potassium 3.9 (3.3-5.1) mmol/L Chloride 105 (96-108) mmol/L Carbon Dioxide 24 (22-29) mmol/L Anion Gap 14 (12-20) BUN 6 L D (9-16) mg/dL Creatinine 0.72 (0.5-1.4) mg/dL Estim Creat Clear Calc 79.1 Estimated GFR > 60 Random Glucose 89 (60-115) mg/dL Calcium 9.3 (8.4-10.2) mg/dL Total Bilirubin 0.6 (0.0-1.0) mg/dL AST 19 (5-31) U/L ALT 17 (0-31) U/L Alkaline Phosphatase 65 (39-117) U/L Total Protein 7.3 (6.5-8.0) g/dL Albumin 4.4 (3.5-5.0) g/dL Lipase 11 (8-78) U/L Urine Color Yellow Urine Appearance Clear Urine pH 7.5 (5.0-9.0) Ur Specific [place] 1.015 (1.005-1.025) Urine Protein Negative (Neg-Trace) mg/dL Urine Glucose (UA) Negative (Negative) mg/dL Urine Ketones Negative (Negative) mg/dL Urine Blood Moderate (2+) H (Negative) Urine Nitrite Negative (Negative) Ur Leukocyte Esterase Trace H (Negative) Urine RBC 0-2 (0-2) /HPF Urine WBC 0-5 (0-5) /HPF Ur Squamous Epith Cells 0-2 (0-2) /HPF Urine Bacteria None Seen (None Seen) Hyaline Casts 0-2 (0-2) /LPF Imaging Data CT scan - abdomen: Radiologist's impression: IMPRESSION: *? Questionable peripancreatic fat stranding about the pancreatic head and body. Please correlate with lipase. If normal, disregard. *? Bilateral nonobstructive calculi. No ureteral calculi or hydronephrosis.? ? Fleischner guidelines were followed. Dictated By: Eligio Irizarry MD Signed By: <Electronically signed by Eligio Irizarry MD in [place]> 12/27/21 1310 Discharge Plan Discharge Clinical Impression: Abdominal pain, Acute flank pain Patient Disposition: Home, Self-Care Instructions: Abdominal Pain (ED) Prescriptions: New naproxen [Naprosyn] 500 mg tablet 500 mg PO BID Qty: 20 0RF No Action clonazepam 1 mg tablet 1 mg PO DAILY PRN (Reason: Anxiety) divalproex [Depakote ER] 500 mg tablet extended release 24 hr 500 mg PO BID fluticasone propion-salmeterol [Advair Diskus] 500-50 mcg/dose blister with device 1 inh inhalation BID Qty: 60 0RF ibuprofen 600 mg tablet 600 mg PO Q6H PRN (Reason: pain) Qty: 20 0RF acetaminophen 500 mg tablet 1,000 mg PO QID PRN (Reason: pain) Qty: 30 0RF oxycodone 5 mg tablet 5 mg PO Q6H PRN (Reason: pain) Qty: 10 0RF Rx Instructions: Partial Fill upon patient request. zolpidem 10 mg tablet 1 tab PO BEDTIME PRN (Reason: Sleep) prednisone 20 mg tablet 20 mg PO DAILY Qty: 5 0RF levalbuterol HCl [Xopenex Concentrate] 1.25 mg/0.5 mL Solution For Nebulization 1.25 mg inhalation RQ4H WHILE AWAKE Qty: 100 0RF amoxicillin-pot clavulanate 875-125 mg tablet 1 tab PO BID Qty: 20 0RF metoprolol succinate 25 mg tablet extended release 24 hr 12.5 mg PO DAILY Qty: 90 3RF Referrals: Physician,Unknown J [Primary Care Provider] - 1 week
[2021-12-27] MEDS: Ondansetron ODT 4 MG TAB.RAPDIS TRANSLINGU (11:48)
[2021-12-27 11:52] LABS: MANUAL DIFF FLAG NO
[2021-12-27 11:54] LABS: Basophils Absolute Auto 0.1 X10*3/uL (0.0-0.2); Basophils Percent Auto 1.4 % (0-2); Eosinophils Absolute Auto 0.2 X10*3/uL (0.0-0.4); Eosinophils Percent Auto 2.9 % (0-4); Hemoglobin 13.9 g/dl (12.0-16.0); Imm Gran Abs Auto 0.02 X10*3/uL (0.00-0.03); Imm Gran Pct Auto 0.3 % (0.0-0.4); Lymphocytes Absolute Auto 1.3 X10*3/uL (1.2-4.9); Lymphocytes Percent Auto 18.3 % (20-40); Mean Corpuscular HGB Conc 33.1 g/dl (31.0-35.0); Mean Corpuscular Volume 87.5 fL (80.0-98.0); Monocytes Absolute Auto 0.5 X10*3/uL (0.1-1.2); Monocytes Percent Auto 7.1 % (2-11); Neutrophils Absolute Auto 5.1 x10*3/uL (2.0-8.3); Platelet Count 328 X10*3/uL (160-400); Red Cell Distribution Width 12.8 % (11.0-16.0); White Blood Count 7.3 X10*3/uL (4.8-10.8)
[2021-12-27 12:12] LABS: Alanine Aminotransferase 17 U/L (0-31); Albumin Level 4.4 g/dL (3.5-5.0); Alkaline Phosphatase 65 U/L (39-117); Anion Gap 14 (12-20); Aspartate Amino Transferase 19 U/L (5-31); Bilirubin Total 0.6 mg/dL (0.0-1.0); Blood Urea Nitrogen 6 mg/dL (9-16); Calcium 9.3 mg/dL (8.4-10.2); Carbon Dioxide 24 mmol/L (22-29); Chloride 105 mmol/L (96-108); Creatinine Clr Calc Pharmacy 79.1; Estimated Glomerular Filt Rate > 60; Glucose Random 89 mg/dL (60-115); Potassium 3.9 mmol/L (3.3-5.1); Sodium 139 mmol/L (135-145); Total Protein 7.3 g/dL (6.5-8.0)
[2021-12-27 12:22] LABS: Appearance Urine Clear; Color Urine Yellow; Glucose Urine UA Negative (Negative); Leukocyte Esterase Urine Trace (Negative); Nitrite Urine Negative (Negative); PH 7.5 (5.0-9.0); Specific Gravity - Urine 1.015 (1.005-1.025); UMIC TRIGGER UACC YES; Urine Blood Moderate (2+) (Negative); Urine Ketones Negative (Negative); Urine Protein Negative (Neg-Trace)
[2021-12-27 12:38] LABS: Bacteria Urine None Seen (None Seen); Hyaline Casts Urine 0-2 /LPF (0-2); RBC Urine 0-2 /HPF (0-2); Squamous Epithelial Cell Urine 0-2 /HPF (0-2); UACC Culture Trigger YES
[2021-12-27 12:39] LABS: WBC Urine 0-5 /HPF (0-5)
[2021-12-27 15:08] LABS: Lipase 11 U/L (8-78)
== END 2021-12-27 15:32 | disposition left against medical advice (07) ==
PROVIDERS: Emergency Provider Emergency Medicine
DX: R10.9 Unspecified abdominal pain (principal); N20.0 Calculus of kidney; E11.9 Type 2 diabetes mellitus without complications; Z86.14 Personal history of Methicillin resistant Staphylococcus aureus infection; Z79.899 Other long term (current) drug therapy
CPT/HCPCS: 36415; 74176; 80053; 81001; 83690; 85025; 87086; 99282; 99284

== ENCOUNTER 2022-03-05 14:02 | Inpatient (IN) | payer OTHER, SELFPAY ==
[2022-03-05] VITALS (8 sets, daily range): BP systolic 115–153; BP diastolic 67–94; PULSE 82–167; RESP 15–20; TEMP 36.6–36.7; O2SAT 95–100; BMI 21.1; BMI 23.0
--- NOTE | ~2022-03-05 | XR_ITS ---
EXAMINATION: XR CHEST CLINICAL INFORMATION: Cough/SOB COMPARISON: None TECHNIQUE: Frontal view of the chest was obtained. FINDINGS: No significant abnormality is noted involving the heart, lungs, mediastinum, bony thorax or soft tissues. XR/XR chest 1V IMPRESSION: Unremarkable chest examination.
--- NOTE | 2022-03-05 14:05 | ECG_ITS ---
Test Reason : cp Blood Pressure : / mmHG Vent. Rate : 090 BPM Atrial Rate : 090 BPM P-R Int : 122 ms QRS Dur : 084 ms QT Int : 366 ms P-R-T Axes : 071 066 062 degrees QTc Int : 447 ms Normal sinus rhythm Normal ECG When compared with ECG of 05-MAR-2022 14:14, Vent. rate has decreased BY 75 BPM Nonspecific T wave abnormality no longer evident in Anterolateral leads Referred By: Jasmyne Martin Electronically Signed By:Jam Jeffers
--- NOTE | 2022-03-05 14:08 | ED_ITS ---
HPI - Chest Pain General Chief Complaint: Upper Respiratory Symptoms <MARITZA River - Last Filed: 03/05/22 14:16> Stated Complaint: SOB, CP <MARITZA River - Last Filed: 03/05/22 14:16> Time Seen by Provider: 03/05/22 14:16 <MARITZA River - Last Filed: 03/05/22 14:16> Source: patient <Sofy Hernandez MD - Last Filed: 03/05/22 16:13> Mode of arrival: ambulatory <Sofy Hernandez MD - Last Filed: 03/05/22 16:13> Limitations: no limitations <Sofy Hernandez MD - Last Filed: 03/05/22 16:13> History of Present Illness HPI narrative: This is a 36-year-old female nonsmoker with history of COPD came in for evaluation of increased shortness of breath with wheezing and difficulty breathing with coughing of dark color sputum, no fever, no chills, no recent travel, no recent exposure to a sick contact. Patient ran out of her inhaler. Patient with history of tachycardia/SVT precipitated by using albuterol. <Sofy Hernandez MD - Last Filed: 03/05/22 16:13> Related Data Home Medications: Home Medications Medication Instructions Recorded Confirmed clonazepam 1 mg tablet 1 mg PO BID PRN Anxiety 12/13/19 08/19/21 divalproex 500 mg tablet,extended 500 mg PO BID 07/10/20 08/19/21 release 24 hr (Depakote ER) zolpidem 10 mg tablet 1 tab PO BEDTIME PRN Sleep 05/24/21 08/19/21 Previous Rx's Medication Instructions Recorded fluticasone 500 mcg-salmeterol 50 1 inh inhalation BID #60 ea 07/12/20 mcg/dose blistr powdr for inhalation (Advair Diskus) prednisone 20 mg tablet 20 mg PO DAILY #5 tabs 05/26/21 metoprolol succinate 25 mg 12.5 mg PO DAILY #90 tabs 08/19/21 tablet,extended release 24 hr <MARITZA River - Last Filed: 03/05/22 14:16> Allergies/Adverse Reactions: Allergies Allergy/AdvReac Type Severity Reaction Status Date / Time magnesium Allergy Unknown Chest Pain Verified 03/05/22 15:50 somatropin [SOMATROPIN] Allergy Unknown UNKNOWN Verified 05/23/21 17:48 amitriptyline [AMITRIPTYLINE] AdvReac Intermediate NAUSEA, Verified 05/23/21 17:48 DIZZINESS albuterol [ALBUTEROL] AdvReac Mild TACHYCARDIA Verified 05/23/21 17:48 esomeprazole [From NEXIUM] AdvReac Mild TACHYCARDIA Verified 05/23/21 17:48 <MARITZA River - Last Filed: 03/05/22 14:16> Review of Systems Review of Systems: All other systems are reviewed and are negative Constitutional: Reports as per HPI and Reports no additional constitutional complaints Eyes: Reports as per HPI and Reports no additional eye complaints Reports system reviewed and no additional complaints, except as documented Cardiovascular: Reports as per HPI and Reports no additional cardiovascular complaints Respiratory: Reports as per HPI and Reports no additional respiratory complaints Gastrointestinal: Reports as per HPI and Reports no additional gastrointestinal complaints Genitourinary: Reports no additional female genitourinary complaints Musculoskeletal: Reports no additional musculoskeletal complaints Skin/Breast: Reports system reviewed and no additional complaints, except as docu Psychiatric: Reports no additional psychiatric complaints Endocrine: Reports no additional endocrine complaints Hematologic/Lymphatic: Reports no additional hematologic/lymphatic complaints Allergic/Immunologic: Reports no additional allergic/immunologic complaints Reports system reviewed and no additional complaints, except as documented and Reports Abnormal speech present <Sofy Hernandez MD - Last Filed: 03/05/22 16:13> [facility] Past Medical History Medical History: Medical History (Updated 03/05/22 @ 17:07 by MARITZA Montaño) Asthma with COPD with exacerbation Bipolar 1 disorder Carpal tunnel syndrome COPD (chronic obstructive pulmonary disease) Diabetes mellitus Family history of COPD (chronic obstructive pulmonary disease) Fibromyalgia History of MRSA infection Inappropriate sinus node tachycardia Kidney stones Polycystic ovarian disease Postural orthostatic tachycardia syndrome POTS (postural orthostatic tachycardia syndrome) Schizoaffective disorder Subclinical hyperthyroidism SVT (supraventricular tachycardia) UTI (urinary tract infection) <MARITZA River - Last Filed: 03/05/22 14:16> Surgical History: Surgical History History of renal stent History of tubal ligation Hx of abdominoplasty Hx of lithotripsy Tubal ligation status <MARITZA River - Last Filed: 03/05/22 14:16> Family History Family History: Family History Other COPD (chronic obstructive pulmonary disease) <MARITZA River - Last Filed: 03/05/22 14:16> Social History Social History: Social History Household Members: Children Housing: House Do you presently have visiting nurse or other home services: No Alcohol intake: never Patient Tobacco Use Status: Never used Tobacco Smoked in Last 30 Days: No Second Hand Smoke Exposure: No Use of substances other than those prescribed or required for medical reasons: No Advance Directives: No Advance Directives Information Provided: Yes service: No Current occupational status: unemployed <MARITZA River - Last Filed: 03/05/22 14:16> Physical Exam Vital Signs: Vital Signs: Last Vital Signs Temp 98.0 F 03/05/22 14:09 Pulse 84 03/05/22 16:18 Resp 18 03/05/22 16:18 BP 119/80 03/05/22 16:18 Pulse Ox 97 03/05/22 16:18 O2 Del Method 03/05/22 16:18 BMI result Body Mass Index 21.1 <MARITZA River - Last Filed: 03/05/22 14:16> Vital Signs: Last Vital Signs Temp 98.0 F 03/05/22 14:09 Pulse 84 03/05/22 16:18 Resp 18 03/05/22 16:18 BP 119/80 03/05/22 16:18 Pulse Ox 97 03/05/22 16:18 O2 Del Method 03/05/22 16:18 BMI result Body Mass Index 21.1 Vital signs have been reviewed as appeared to be correct. Blood pressure normal. Tachycardia. Respiration rate normal. Temperature normal. Oxygen saturation normal. <Sofy Hernandez MD - Last Filed: 03/05/22 16:13> Appearance: Alert. Oriented X3. No acute distress. Head: Normal external exam. Normocephalic. Atraumatic. No [place] signs noted. No raccoon eyes noted Eyes: PERRLA. EOMI. Conjunctiva and sclera normal. Eyelids normal. ENT: TM's Normal. Pharynx normal. Uvula midline. Moist mucous membranes. No trismus noted. No drooling noted. No muffled voice noted. Neck: Normal inspection. Neck supple. FROM. No adenopathy. Thyroid Normal. No meningeal signs. No neck mass noted. CVS: Normal heart rate and rhythm. Heart sound normal. No murmurs noted. Pulses normal throughout. Respiratory: No respiratory distress. Painless inspiration. Breath sounds normal. No wheezes/rales/rhonchi noted. Chest nontender. No accessory muscle usage noted or decreased air movement noted. Abdomen: Soft and nontender. Bowel sounds normal in all 4 quadrants. No distention noted. No organomegaly noted. No visible injury noted. Back: No CVA tenderness. Full range of motion noted. Skin: Skin warm and dry. Normal skin color. Normal skin turgor. No rashes/lesions/lacerations noted. Extremities: No lower extremity edema. Extremities exhibit normal range of motion. Extremities nontender. Neuro: Oriented X 3. Cranial nerve exam: II-XII are grossly intact No motor deficit. No sensory deficit. Reflexes normal. <Sofy Hernandez MD - Last Filed: 03/05/22 16:13> Course Course Course Narrative: RMSage--36-year-old female with a past medical history of asthma, COPD, diabetes, schizoaffective, SVT, presenting to the ED complaining of cough, SOB, CP, nausea, vomiting/diarrhea and decreased p.o. intake x2 days. Patient tachycardic in the 160s, actively coughing during evaluation, decreased lung sounds and exp wheeze noted EKG, labs, CXR, COVID-19/influenz/rsv, Xopenex Neb, Tessalon Perles ordered in triage <MARITZA River - Last Filed: 03/05/22 14:16> Reevaluation(s) Reevaluation #1: Heart rate is 90 beats per minutes now after use Xopenex, patient still in mild respiratory distress and wheezing patient had a history of multiple hos pitalization in the past will admit for further bronchodilator therapy. <Sofy Hernandez MD - Last Filed: 03/05/22 16:13> Time: 16:11 <Sofy Hernandez MD - Last Filed: 03/05/22 16:13> Medications Administered Discontinued Medications Generic Name Dose Route Start Last Admin Trade Name Freq PRN Reason Stop Dose Admin Benzonatate 100 mg 03/05/22 14:09 03/05/22 14:36 Benzonatate 100 Mg Capsule PO 03/05/22 14:10 100 mg ONCE ONE Administration Magnesium Sulfate 2 gm in 50 mls @ 25 mls/hr 03/05/22 14:45 03/05/22 15:54 Magnesium Sulfate/H2o IV 03/05/22 16:44 Infused ONCE ONE Infusion Levalbuterol HCl 1.25 mg 03/05/22 14:15 03/05/22 15:07 Levalbuterol Hcl 1.25 Mg/0.5 Ml Vial.Neb INHALE 03/05/22 14:16 1.25 mg ONCE ONE Administration Methylprednisolone Sodium Succinate 125 mg 03/05/22 14:45 03/05/22 15:22 Methylprednisolone Sod Succ 125 Mg/2 Ml Vial IVPUSH 03/05/22 14:46 125 mg ONCE ONE Administration <MARITZA River - Last Filed: 03/05/22 14:16> Medications Administered Discontinued Medications Generic Name Dose Route Start Last Admin Trade Name Freq PRN Reason Stop Dose Admin Benzonatate 100 mg 03/05/22 14:09 03/05/22 14:36 Benzonatate 100 Mg Capsule PO 03/05/22 14:10 100 mg ONCE ONE Administration Magnesium Sulfate 2 gm in 50 mls @ 25 mls/hr 03/05/22 14:45 03/05/22 15:54 Magnesium Sulfate/H2o IV 03/05/22 16:44 Infused ONCE ONE Infusion Levalbuterol HCl 1.25 mg 03/05/22 14:15 03/05/22 15:07 Levalbuterol Hcl 1.25 Mg/0.5 Ml Vial.Neb INHALE 03/05/22 14:16 1.25 mg ONCE ONE Administration Methylprednisolone Sodium Succinate 125 mg 03/05/22 14:45 03/05/22 15:22 Methylprednisolone Sod Succ 125 Mg/2 Ml Vial IVPUSH 03/05/22 14:46 125 mg ONCE ONE Administration <Sofy Hernandez MD - Last Filed: 03/05/22 16:13> Medical Decision Making Differential Diagnosis Differential Diagnoses: The differential diagnosis associated with the presentation includes (COPD exacerbation, pneumonia, viral respiratory infection.) <Sofy Hernandez MD - Last Filed: 03/05/22 16:13> Admission/Observation Consideration of admission/observation: Escalation of care including admission/observation considered <Sofy Hernandez MD - Last Filed: 03/05/22 16:13> Consult Healthcare Provider Management of the patient was discussed with: Hospitalist <Sofy Hernandez MD - Last Filed: 03/05/22 16:13> Lab Data MDM Lab Attestation statement: I reviewed the patient's lab results. <Sofy Hernandez MD - Last Filed: 03/05/22 16:13> Result Diagrams: 03/05/22 14:26 03/05/22 14:26 <MARITZA River - Last Filed: 03/05/22 14:16> Labs: Lab Results 03/05/22 03/05/22 03/05/22 Range/Units 14:26 14:26 14:26 WBC 10.5 (4.8-10.8) X10*3/uL RBC 4.96 (4.20-5.50) X10*6/uL Hgb 14.4 (12.0-16.0) g/dl Hct 43.0 (37.0-47.0) % MCV 86.7 (80.0-98.0) fL MCH 29.0 (27.0-33.0) pg MCHC 33.5 (31.0-35.0) g/dl RDW 12.6 (11.0-16.0) % Plt Count 400 (160-400) X10*3/uL MPV 10.2 (9.4-12.3) fL Immature Gran % (Auto) 0.3 (0.0-0.4) % Neut % (Auto) 78.9 H (45-73) % Lymph % (Auto) 14.3 L (20-40) % Pickett % (Auto) 4.7 (2-11) % Eos % (Auto) 0.9 (0-4) % Baso % (Auto) 0.9 (0-2) % Lymph # (Auto) 1.5 (1.2-4.9) X10*3/uL Pickett # (Auto) 0.5 (0.1-1.2) X10*3/uL Eos # (Auto) 0.1 (0.0-0.4) X10*3/uL Baso # (Auto) 0.1 (0.0-0.2) X10*3/uL Abs Immat Gran (auto) 0.03 (0.00-0.03) X10*3/uL Absolute Neuts (auto) 8.3 (2.0-8.3) x10*3/uL Absolute Nucleated RBC 0.000 (0.0-0.012) X10*3/uL Nucleated RBC % (auto) 0.0 (0.0-0.2) /100WBC Sodium 140 (135-145) mmol/L Potassium 3.8 (3.3-5.1) mmol/L Chloride 106 (96-108) mmol/L Carbon Dioxide 20 L (22-29) mmol/L Anion Gap 18 (12-20) BUN 9 (9-16) mg/dL Creatinine 0.73 (0.5-1.4) mg/dL Estim Creat Clear Calc 77.9 Estimated GFR > 60 Random Glucose 118 H (60-115) mg/dL Calcium 9.9 D (8.4-10.2) mg/dL Magnesium 1.8 (1.6-2.6) mg/dL Total Bilirubin 0.5 (0.0-1.0) mg/dL Direct Bilirubin 0.2 (0.0-0.5) mg/dL AST 21 (5-31) U/L ALT 18 (0-31) U/L Alkaline Phosphatase 65 (39-117) U/L Troponin I High Sens < 3.5 (<3.5-17.0) ng/L Total Protein 7.8 (6.5-8.0) g/dL Albumin 4.5 (3.5-5.0) g/dL Influenza Type A (PCR) (Negative) Influenza Type B (PCR) (Negative) RSV RNA Qual (PCR) (Negative) SARS-CoV-2 RNA (RT-PCR) (Negative) 03/05/22 Range/Units 14:26 WBC (4.8-10.8) X10*3/uL RBC (4.20-5.50) X10*6/uL Hgb (12.0-16.0) g/dl Hct (37.0-47.0) % MCV (80.0-98.0) fL MCH (27.0-33.0) pg MCHC (31.0-35.0) g/dl RDW (11.0-16.0) % Plt Count (160-400) X10*3/uL MPV (9.4-12.3) fL Immature Gran % (Auto) (0.0-0.4) % Neut % (Auto) (45-73) % Lymph % (Auto) (20-40) % Pickett % (Auto) (2-11) % Eos % (Auto) (0-4) % Baso % (Auto) (0-2) % Lymph # (Auto) (1.2-4.9) X10*3/uL Pickett # (Auto) (0.1-1.2) X10*3/uL Eos # (Auto) (0.0-0.4) X10*3/uL Baso # (Auto) (0.0-0.2) X10*3/uL Abs Immat Gran (auto) (0.00-0.03) X10*3/uL Absolute Neuts (auto) (2.0-8.3) x10*3/uL Absolute Nucleated RBC (0.0-0.012) X10*3/uL Nucleated RBC % (auto) (0.0-0.2) /100WBC Sodium (135-145) mmol/L Potassium (3.3-5.1) mmol/L Chloride (96-108) mmol/L Carbon Dioxide (22-29) mmol/L Anion Gap (12-20) BUN (9-16) mg/dL Creatinine (0.5-1.4) mg/dL Estim Creat Clear Calc Estimated GFR Random Glucose (60-115) mg/dL Calcium (8.4-10.2) mg/dL Magnesium (1.6-2.6) mg/dL Total Bilirubin (0.0-1.0) mg/dL Direct Bilirubin (0.0-0.5) mg/dL AST (5-31) U/L ALT (0-31) U/L Alkaline Phosphatase (39-117) U/L Troponin I High Sens (<3.5-17.0) ng/L Total Protein (6.5-8.0) g/dL Albumin (3.5-5.0) g/dL Influenza Type A (PCR) NEGATIVE (Negative) Influenza Type B (PCR) NEGATIVE (Negative) RSV RNA Qual (PCR) NEGATIVE (Negative) SARS-CoV-2 RNA (RT-PCR) NEGATIVE (Negative) <MARITZA River - Last Filed: 03/05/22 14:16> Lab Results 03/05/22 03/05/22 03/05/22 Range/Units 14:26 14:26 14:26 WBC 10.5 (4.8-10.8) X10*3/uL RBC 4.96 (4.20-5.50) X10*6/uL Hgb 14.4 (12.0-16.0) g/dl Hct 43.0 (37.0-47.0) % MCV 86.7 (80.0-98.0) fL MCH 29.0 (27.0-33.0) pg MCHC 33.5 (31.0-35.0) g/dl RDW 12.6 (11.0-16.0) % Plt Count 400 (160-400) X10*3/uL MPV 10.2 (9.4-12.3) fL Immature Gran % (Auto) 0.3 (0.0-0.4) % Neut % (Auto) 78.9 H (45-73) % Lymph % (Auto) 14.3 L (20-40) % Pickett % (Auto) 4.7 (2-11) % Eos % (Auto) 0.9 (0-4) % Baso % (Auto) 0.9 (0-2) % Lymph # (Auto) 1.5 (1.2-4.9) X10*3/uL Pickett # (Auto) 0.5 (0.1-1.2) X10*3/uL Eos # (Auto) 0.1 (0.0-0.4) X10*3/uL Baso # (Auto) 0.1 (0.0-0.2) X10*3/uL Abs Immat Gran (auto) 0.03 (0.00-0.03) X10*3/uL Absolute Neuts (auto) 8.3 (2.0-8.3) x10*3/uL Absolute Nucleated RBC 0.000 (0.0-0.012) X10*3/uL Nucleated RBC % (auto) 0.0 (0.0-0.2) /100WBC Sodium 140 (135-145) mmol/L Potassium 3.8 (3.3-5.1) mmol/L Chloride 106 (96-108) mmol/L Carbon Dioxide 20 L (22-29) mmol/L Anion Gap 18 (12-20) BUN 9 (9-16) mg/dL Creatinine 0.73 (0.5-1.4) mg/dL Estim Creat Clear Calc 77.9 Estimated GFR > 60 Random Glucose 118 H (60-115) mg/dL Calcium 9.9 D (8.4-10.2) mg/dL Magnesium 1.8 (1.6-2.6) mg/dL Total Bilirubin 0.5 (0.0-1.0) mg/dL Direct Bilirubin 0.2 (0.0-0.5) mg/dL AST 21 (5-31) U/L ALT 18 (0-31) U/L Alkaline Phosphatase 65 (39-117) U/L Troponin I High Sens < 3.5 (<3.5-17.0) ng/L Total Protein 7.8 (6.5-8.0) g/dL Albumin 4.5 (3.5-5.0) g/dL Influenza Type A (PCR) (Negative) Influenza Type B (PCR) (Negative) RSV RNA Qual (PCR) (Negative) SARS-CoV-2 RNA (RT-PCR) (Negative) 03/05/22 Range/Units 14:26 WBC (4.8-10.8) X10*3/uL RBC (4.20-5.50) X10*6/uL Hgb (12.0-16.0) g/dl Hct (37.0-47.0) % MCV (80.0-98.0) fL MCH (27.0-33.0) pg MCHC (31.0-35.0) g/dl RDW (11.0-16.0) % Plt Count (160-400) X10*3/uL MPV (9.4-12.3) fL Immature Gran % (Auto) (0.0-0.4) % Neut % (Auto) (45-73) % Lymph % (Auto) (20-40) % Pickett % (Auto) (2-11) % Eos % (Auto) (0-4) % Baso % (Auto) (0-2) % Lymph # (Auto) (1.2-4.9) X10*3/uL Pickett # (Auto) (0.1-1.2) X10*3/uL Eos # (Auto) (0.0-0.4) X10*3/uL Baso # (Auto) (0.0-0.2) X10*3/uL Abs Immat Gran (auto) (0.00-0.03) X10*3/uL Absolute Neuts (auto) (2.0-8.3) x10*3/uL Absolute Nucleated RBC (0.0-0.012) X10*3/uL Nucleated RBC % (auto) (0.0-0.2) /100WBC Sodium (135-145) mmol/L Potassium (3.3-5.1) mmol/L Chloride (96-108) mmol/L Carbon Dioxide (22-29) mmol/L Anion Gap (12-20) BUN (9-16) mg/dL Creatinine (0.5-1.4) mg/dL Estim Creat Clear Calc Estimated GFR Random Glucose (60-115) mg/dL Calcium (8.4-10.2) mg/dL Magnesium (1.6-2.6) mg/dL Total Bilirubin (0.0-1.0) mg/dL Direct Bilirubin (0.0-0.5) mg/dL AST (5-31) U/L ALT (0-31) U/L Alkaline Phosphatase (39-117) U/L Troponin I High Sens (<3.5-17.0) ng/L Total Protein (6.5-8.0) g/dL Albumin (3.5-5.0) g/dL Influenza Type A (PCR) NEGATIVE (Negative) Influenza Type B (PCR) NEGATIVE (Negative) RSV RNA Qual (PCR) NEGATIVE (Negative) SARS-CoV-2 RNA (RT-PCR) NEGATIVE (Negative) <Sofy Hernandez MD - Last Filed: 03/05/22 16:13> Independent Interpretation I performed an independent interpretation of an: Plain X-Ray (Chest: No acute respiratory distress.) <Sofy Hernandez MD - Last Filed: 03/05/22 16:13> Radiology Impression Discussion of test interpretation with radiology: I have reviewed the radiologist's reading. <Sofy Hernandez MD - Last Filed: 03/05/22 16:13> Discharge Plan Discharge Clinical Impression: COPD exacerbation <MARITZA River - Last Filed: 03/05/22 14:16> Patient Disposition: Admitted As Inpatient <MARITZA River - Last Filed: 03/05/22 14:16>
--- NOTE | 2022-03-05 14:09 | ECG_ITS ---
Test Reason : CP Blood Pressure : / mmHG Vent. Rate : 165 BPM Atrial Rate : 165 BPM P-R Int : 128 ms QRS Dur : 076 ms QT Int : 292 ms P-R-T Axes : 078 077 057 degrees QTc Int : 483 ms Sinus tachycardia Nonspecific ST and T wave abnormality Abnormal ECG When compared with ECG of 24-MAY-2021 00:33, Vent. rate has increased BY 80 BPM Nonspecific T wave abnormality, worse in Anterolateral leads Referred By: Jasmyne Martin Electronically Signed By:Jam Jeffers
[2022-03-05 14:30] LABS: MANUAL DIFF FLAG NO
[2022-03-05] MEDS: Benzonatate 100 MG CAPSULE PO (14:36)
[2022-03-05 14:37] LABS: Basophils Absolute Auto 0.1 X10*3/uL (0.0-0.2); Basophils Percent Auto 0.9 % (0-2); Eosinophils Absolute Auto 0.1 X10*3/uL (0.0-0.4); Eosinophils Percent Auto 0.9 % (0-4); Hemoglobin 14.4 g/dl (12.0-16.0); Imm Gran Abs Auto 0.03 X10*3/uL (0.00-0.03); Imm Gran Pct Auto 0.3 % (0.0-0.4); Lymphocytes Absolute Auto 1.5 X10*3/uL (1.2-4.9); Lymphocytes Percent Auto 14.3 % (20-40); Mean Corpuscular HGB Conc 33.5 g/dl (31.0-35.0); Mean Corpuscular Volume 86.7 fL (80.0-98.0); Mean Platelet Volume 10.2 fL (9.4-12.3); Monocytes Absolute Auto 0.5 X10*3/uL (0.1-1.2); Monocytes Percent Auto 4.7 % (2-11); Neutrophils Absolute Auto 8.3 x10*3/uL (2.0-8.3); Neutrophils Percent Auto 78.9 % (45-73); Platelet Count 400 X10*3/uL (160-400); Red Blood Count 4.96 X10*6/uL (4.20-5.50); Red Cell Distribution Width 12.6 % (11.0-16.0); White Blood Count 10.5 X10*3/uL (4.8-10.8)
--- NOTE | 2022-03-05 14:38 | MHC.EDTECH ---
EKG delayed, pt coughing and vomiting, unable to get accurate reading
[2022-03-05 15:04] LABS: Alanine Aminotransferase 18 U/L (0-31); Albumin Level 4.5 g/dL (3.5-5.0); Alkaline Phosphatase 65 U/L (39-117); Anion Gap 18 (12-20); Aspartate Amino Transferase 21 U/L (5-31); Bilirubin Direct 0.2 mg/dL (0.0-0.5); Bilirubin Total 0.5 mg/dL (0.0-1.0); Blood Urea Nitrogen 9 mg/dL (9-16); Calcium 9.9 mg/dL (8.4-10.2); Carbon Dioxide 20 mmol/L (22-29); Chloride 106 mmol/L (96-108); Creatinine Clr Calc Pharmacy 77.9; Estimated Glomerular Filt Rate > 60; Glucose Random 118 mg/dL (60-115); Magnesium 1.8 mg/dL (1.6-2.6); Potassium 3.8 mmol/L (3.3-5.1); Sodium 140 mmol/L (135-145); Total Protein 7.8 g/dL (6.5-8.0)
[2022-03-05 15:09] LABS: Influenza A PCR NEGATIVE (Negative); Influenza B PCR NEGATIVE (Negative); Resp Syncy Virus RNA Qual PCR NEGATIVE (Negative); SARS COV2 PCR INHOUSE NEGATIVE (Negative)
[2022-03-05 15:11] LABS: Troponin-I High Sensitivity < 3.5 ng/L (<3.5-17.0)
[2022-03-05] MEDS: Magnesium Sulfate/H2O 2 GM/50 ML PIGGYBACK IV (15:22)
[2022-03-05] MEDS: methylPREDNISolone Sod Succ 125 MG/2 ML VIAL IVPUSH (15:22)
--- NOTE | 2022-03-05 15:54 | PC.NURSE ---
while this nurse was on break, pt was medicated per provider order, pt reported chest pain/palpitations and increased anxiety with magnesium, medication discontinued and provider notified. rxn added to allergies.
--- NOTE | 2022-03-05 16:16 | P.HPHOSP_ITS ---
History of Present Illness Date of Service: 03/05/22 Attending physician on admission: Satya Sr Chief Complaint: SOB, wheezing Pt is a 36-year-old female with a PMH significant for?COPD, SVT, diet-controlled diabetes, pots syndrome, migraines, and subclinical hypothyroidism who presents to the ED with?2 days of worsening SOB and periods of SVT. Pt also complains of headache, lightheadedness, palpitations, and chest pain, worse with breathing and coughing. Pain is in the middle of her chest, does not radiate, and is described as more of a tightness. Patient has been using her home nebulizer and inhaler, but ran out of her inhaler last night. The patient states that 2 days ago she also started experiencing cramping in her abdomen and had episodes of diarrhea. Denies any recent illness, nausea, vomiting, fever, chills. Of note, pt was admitted for similar complaints on 05/24/2021. In the ED patient arrived tachycardic in the 160s, subsequently brought down to the 80s after breathing treatment. Patient was not tachypneic or hypoxic, satting 100% on RA. Labs were unremarkable. CXR showed no acute cardiopulmonary process. Pt was treated with levalbuterol, Solu-Medrol, and magnesium sulfate. Pt will be admitted to observation Review of Systems Review of Systems: SOB SVT Chest tightness Productive cough Abdominal cramps and diarrhea Denies fever, chills, nausea, vomiting Yes all other systems are reviewed and are negative [facility] Medical History (Updated 03/05/22 @ 17:07 by MARITZA Montaño) Asthma with COPD with exacerbation Bipolar 1 disorder Carpal tunnel syndrome COPD (chronic obstructive pulmonary disease) Diabetes mellitus Family history of COPD (chronic obstructive pulmonary disease) Fibromyalgia History of MRSA infection Inappropriate sinus node tachycardia Kidney stones Polycystic ovarian disease Postural orthostatic tachycardia syndrome POTS (postural orthostatic tachycardia syndrome) Schizoaffective disorder Subclinical hyperthyroidism SVT (supraventricular tachycardia) UTI (urinary tract infection) Family History Other COPD (chronic obstructive pulmonary disease) Surgical History History of renal stent History of tubal ligation Hx of abdominoplasty Hx of lithotripsy Tubal ligation status Social History Household Members: Children Housing: Apartment Do you presently have visiting nurse or other home services: No Alcohol intake: never Patient Tobacco Use Status: Never used Tobacco Smoked in Last 30 Days: No Second Hand Smoke Exposure: No Use of substances other than those prescribed or required for medical reasons: No Currently Displaying Signs/Symptoms of Drug Intoxication Withdrawal: No Have you been hit, kicked, punched, or otherwise hurt by someone within the past year? If so, by whom?: No Do you feel safe in your current relationship?: Yes Is there a partner from a previous relationship who is making you feel unsafe now?: No Are you made to feel afraid or neglected: No Advance Directives: No Advance Directives Information Provided: Yes Advance Directives on File: Yes Do you have thoughts of harming others: None Do you have a plan to hurt others: No Plan Recently lost weight without trying: Yes How much weight loss: 2-13 pounds Eating poorly because of decreased appetite: Yes Nutrition screen score: 4 Patient : No : No Poor oral hygiene: No service: No Current occupational status: unemployed Meds Allergies Allergy/AdvReac Type Severity Reaction Status Date / Time magnesium Allergy Unknown Chest Pain Verified 03/05/22 15:50 somatropin [SOMATROPIN] Allergy Unknown UNKNOWN Verified 05/23/21 17:48 amitriptyline [AMITRIPTYLINE] AdvReac Intermediate NAUSEA, Verified 05/23/21 17:48 DIZZINESS albuterol [ALBUTEROL] AdvReac Mild TACHYCARDIA Verified 05/23/21 17:48 esomeprazole [From NEXIUM] AdvReac Mild TACHYCARDIA Verified 05/23/21 17:48 Active Medications: Current Medications Magnesium Sulfate (Magnesium Sulfate/H2o) 2 gm in 50 mls @ 25 mls/hr IV ONCE ONE Stop: 03/05/22 16:44 Last Infusion: 03/05/22 15:54 Dose: Infused Home Medications Medication Instructions Recorded Confirmed Last Taken Type clonazepam 1 mg tablet 1 mg PO BID PRN Anxiety 12/13/19 03/05/22 03/04/22 History divalproex 500 mg tablet,extended 500 mg PO BID 07/10/20 03/05/22 03/04/22 History release 24 hr (Depakote ER) zolpidem 10 mg tablet 1 tab PO BEDTIME PRN Sleep 05/24/21 03/05/22 03/04/22 History ascorbic acid (vitamin C) 500 mg 500 mg PO DAILY 03/05/22 03/05/22 03/04/22 History tablet (Vitamin C) multivitamin 1 tab PO DAILY 03/05/22 03/05/22 03/04/22 History nitrofurantoin 1 cap PO DAILY 03/05/22 03/05/22 03/04/22 History monohydrate/macrocrystals 100 mg capsule Physical Exam Vital Signs and Narrative: Vital Signs: Last Vital Signs Temp 98.0 F 03/05/22 14:09 Pulse 95 03/05/22 15:09 Resp 18 03/05/22 15:09 BP 153/94 H 03/05/22 14:09 Pulse Ox 100 03/05/22 14:09 O2 Del Method 03/05/22 14:09 BMI result Body Mass Index 21.1 Constitutional: Uncomfortable appearing, in no acute distress. Mental Status: Oriented to person, place and time. Eyes: Pupils are equal, round, and reactive to light. Ear, Nose, and Throat: Oropharynx clear, mucous membranes moist. Ears and nose without deformities. Trachea midline. Respiratory: Light expiratory wheezing, especially in lower lung self. Cardiovascular: S1, S2, tachy. No murmurs, rubs, or gallops. Gastrointestinal: Abdomen soft, non-tender, non-distended. Normal bowel sounds. Neurologic: Cranial nerves II-XI are grossly intact. No focal neurological deficits. Moves all extremities spontaneously. Skin: No rashes or lesions noted. Musculoskeletal: No cyanosis or clubbing. Extremities: No edema. Psychiatric: Normal mood and affect. Results Labs 03/05/22 14:26 03/05/22 14:26 Labs: Laboratory Results - last 24 hr 03/05/22 03/05/22 03/05/22 14:26 14: 14:26 MCV 86.7 MCH 29.0 MCHC 33.5 RDW 12.6 Plt Count 400 MPV 10.2 Immature Gran % (Auto) 0.3 Neut % (Auto) 78.9 H Lymph % (Auto) 14.3 L [place] % (Auto) 4.7 Eos % (Auto) 0.9 Baso % (Auto) 0.9 Lymph # (Auto) 1.5 [place] # (Auto) 0.5 Eos # (Auto) 0.1 Baso # (Auto) 0.1 Abs Immat Gran (auto) 0.03 Absolute Neuts (auto) 8.3 Absolute Nucleated RBC 0.000 Nucleated RBC % (auto) 0.0 Anion Gap 18 Estim Creat Clear Calc 77.9 Estimated GFR > 60 Random Glucose 118 H Calcium 9.9 D Magnesium 1.8 Total Bilirubin 0.5 Direct Bilirubin 0.2 AST 21 ALT 18 Alkaline Phosphatase 65 Troponin I High Sens < 3.5 Total Protein 7.8 Albumin 4.5 Influenza Type A (PCR) Influenza Type B (PCR) RSV RNA Qual (PCR) SARS-CoV-2 RNA (RT-PCR) 03/05/22 14:26 MCV MCH MCHC RDW Plt Count MPV Immature Gran % (Auto) Neut % (Auto) Lymph % (Auto) [place]ha % (Auto) Eos % (Auto) Baso % (Auto) Lymph # (Auto) Desha # (Auto) Eos # (Auto) Baso # (Auto) Abs Immat Gran (auto) Absolute Neuts (auto) Absolute Nucleated RBC Nucleated RBC % (auto) Anion Gap Estim Creat Clear Calc Estimated GFR Random Glucose Calcium Magnesium Total Bilirubin Direct Bilirubin AST ALT Alkaline Phosphatase Troponin I High Sens Total Protein Albumin Influenza Type A (PCR) NEGATIVE Influenza Type B (PCR) NEGATIVE RSV RNA Qual (PCR) NEGATIVE SARS-CoV-2 RNA (RT-PCR) NEGATIVE Imaging Radiologist's Impressions: Impressions Chest X-Ray 03/05/22 14:47 IMPRESSION: Unremarkable chest examination. Assessment and Plan (1) COPD exacerbation: Status: Acute (2) SVT (supraventricular tachycardia): Status: Acute Plan Pt is a 36-year-old female with a PMH significant for?COPD, SVT, diet-controlled diabetes, pots syndrome, migraines, and subclinical hypothyroidism who presents to the ED with?2 days of worsening SOB and periods of SVT. Patient will be admitted to telemetry for COPD exacerbation management. Asthma with COPD exacerbation Solu-Medrol 60mg q6 for at least 24 hours Xopenex q4 Benzonatate History of SVT Continue metoprolol Admit to research assistant Abdominal pain and diarrhea Unclear etiology Patient afebrile with no leukocytosis Monitor, follow clinically, treat as indicated Diet-controlled diabetes Diabetic diet SSI History of POTS BP currently stable Monitor on telemetry Full Code Attending:?Dr. Sr DVT Prophylaxis: Lovenox Pt will require a hospitalization of at least two nights for treatment of Asthma/COPD exacerbation. Time Spent With Patient Time: Total time managing care of this patient today ____ minutes. Quality Stroke Does the patient have a stroke diagnosis?: No VTE Prior VTE?: No VTE Risk Level:: Medical - moderate - high VTE Device Contraindication: Treatment Not Indicated VTE Drug Contraindication: N/A - Med Ordered
--- NOTE | 2022-03-05 16:22 | PC.NURSE ---
pt a&ox3, vss, RR even and unlaboured, decreased coughing, pt reporting some pain from infiltrated IV site, given ice pack. pt pending admit orders/bed assignment.
--- NOTE | 2022-03-05 17:40 | PHA.MEDREC ---
Pharmacy Consult ? Medication Reconciliation Pharmacy has completed the medication reconciliation. Patient states they take nitrofurantoin mono-mcr 100mg daily, however last fill per claim history was on 09/27/21 for a 30 day supply.
--- NOTE | 2022-03-05 18:00 | MHC.EDTECH ---
1800 rounding done ,vitals sign taken ,i gave patient dinner tray ,patient on phone talking and having dinner .
--- NOTE | 2022-03-05 18:57 | MHC.EDTECH ---
patient got a room on [facility] ,transporter is bring patient patient up .
[2022-03-05] MEDS: Enoxaparin Sodium 40 MG/0.4 ML SYRINGE SUBCUT (20:45)
[2022-03-05] MEDS: methylPREDNISolone Sod Succ 125 MG/2 ML VIAL 60 MG IVPUSH (20:45)
[2022-03-05] MEDS: 0.9 % Sodium Chloride Flush 3 ML SYRINGE IVFLUSH (20:46)
[2022-03-05] MEDS: oxyCODONE HCl Immed Release 5 MG TABLET PO (21:39)
[2022-03-05 22:13] LABS: Troponin-I High Sensitivity < 3.5 ng/L (<3.5-17.0)
[2022-03-06] VITALS (9 sets, daily range): BP systolic 95–115; BP diastolic 51–67; PULSE 57–118; RESP 8–20; TEMP 36.2–37.2; O2SAT 95–100
[2022-03-06] MEDS: Zolpidem Tartrate 5 MG TABLET 10 MG PO (00:10)
[2022-03-06] MEDS: methylPREDNISolone Sod Succ 125 MG/2 ML VIAL 60 MG IVPUSH ×4 (03:23→20:12)
[2022-03-06] MEDS: 0.9 % Sodium Chloride Flush 3 ML SYRINGE IVFLUSH ×2 (09:56→16:50)
--- NOTE | 2022-03-06 12:53 | HO.PM.IMPN ---
Subjective Subjective Date of Service: 03/06/22 Interval History: Remains short of breath despite therapies. Intermittent tachycardia noted Review of Systems Denies chest pain Admits shortness of breath with exertion Denies nausea vomiting diarrhea Denies fever chills Physical Exam Vital Signs: Vital Signs: Last Vital Signs Temp 98.0 F 03/06/22 11:22 Pulse 118 H 03/06/22 11:22 Resp 20 03/06/22 11:22 BP 115/61 03/06/22 11:22 Pulse Ox 99 03/06/22 11:22 O2 Del Method 03/06/22 11:22 BMI result Body Mass Index 23.0 Const: Other: No acute distress Resp: Other: Diminished at bases with scant diffuse expiratory wheezes Cardio: Other: No S4; positive S1-S2; no S3 murmurs rubs or gallops GI: Other: Soft nontender nondistended normoactive bowel sounds Extrem: Other: No edema bilaterally Objective Data Active Medications Acetaminophen (Acetaminophen 325 Mg Tablet) 650 mg PO Q6H PRN PRN Reason: Pain, Mild (Pain Scale 1-3) Benzonatate (Benzonatate 100 Mg Capsule) 100 mg PO TID PRN PRN Reason: Cough Docusate Sodium (Docusate Sodium 100 Mg Capsule) 100 mg PO DAILY PRN PRN Reason: Constipation Enoxaparin Sodium (Enoxaparin Sodium 40 Mg/0.4 Ml Syringe) 40 mg SUBCUT Q24H [facility] Last Admin: 03/05/22 20:45 Dose: 40 mg Documented By: BIRD Hydroxyzine HCl (Hydroxyzine Hcl 25 Mg Tablet) 25 mg PO QID PRN PRN Reason: anxiety Levalbuterol HCl (Levalbuterol Hcl 1.25 Mg/0.5 Ml Vial.Neb) 1.25 mg INHALE RQ4H WHILE AWAKE [facility] Last Admin: 03/06/22 11:11 Dose: 1.25 mg Documented By: RAHEL Methylprednisolone Sodium Succinate (Methylprednisolone Sod Succ 125 Mg/2 Ml Vial) 60 mg IVPUSH Q6H [facility] Last Admin: 03/06/22 09:56 Dose: 60 mg Documented By: JOSEPH Ondansetron HCl (Ondansetron Hcl 4 Mg/2 Ml Vial) 4 mg IVPUSH Q8H PRN PRN Reason: Nausea and Vomiting Pharmacy Consult (Consult Rx Perform Med Rec) 1 each MISCELLANE ONCE PRN PRN Reason: Consult order Sodium Chloride (0.9 % Sodium Chloride Flush 3 Ml Syringe) 3 ml IVFLUSH QSHIFT [facility] Last Admin: 03/06/22 09:56 Dose: 3 ml Documented By: OJSEPH Zolpidem Tartrate (Zolpidem Tartrate 5 Mg Tablet) 10 mg PO BEDTIME PRN PRN Reason: Sleep Last Admin: 03/06/22 00:10 Dose: 10 mg Documented By: BIRD Labs 03/05/22 14:26 03/05/22 14:26 Labs: Laboratory Results - last 24 hr 03/05/22 03/05/22 03/05/22 14:26 14:26 14:26 MCV 86.7 MCH 29.0 MCHC 33.5 RDW 12.6 Plt Count 400 MPV 10.2 Immature Gran % (Auto) 0.3 Neut % (Auto) 78.9 H Lymph % (Auto) 14.3 L [place] % (Auto) 4.7 Eos % (Auto) 0.9 Baso % (Auto) 0.9 Lymph # (Auto) 1.5 [place] # (Auto) 0.5 Eos # (Auto) 0.1 Baso # (Auto) 0.1 Abs Immat Gran (auto) 0.03 Absolute Neuts (auto) 8.3 Absolute Nucleated RBC 0.000 Nucleated RBC % (auto) 0.0 Anion Gap 18 Estim Creat Clear Calc 77.9 Estimated GFR > 60 Random Glucose 118 H Calcium 9.9 D Magnesium 1.8 Total Bilirubin 0.5 Direct Bilirubin 0.2 AST 21 ALT 18 Alkaline Phosphatase 65 Troponin I High Sens < 3.5 Total Protein 7.8 Albumin 4.5 Influenza Type A (PCR) Influenza Type B (PCR) RSV RNA Qual (PCR) SARS-CoV-2 RNA (RT-PCR) 03/05/22 03/05/22 14:26 21:35 MCV MCH MCHC RDW Plt Count MPV Immature Gran % (Auto) Neut % (Auto) Lymph % (Auto) [place] % (Auto) Eos % (Auto) Baso % (Auto) Lymph # (Auto) [place] # (Auto) Eos # (Auto) Baso # (Auto) Abs Immat Gran (auto) Absolute Neuts (auto) Absolute Nucleated RBC Nucleated RBC % (auto) Anion Gap Estim Creat Clear Calc Estimated GFR Random Glucose Calcium Magnesium Total Bilirubin Direct Bilirubin AST ALT Alkaline Phosphatase Troponin I High Sens < 3.5 Total Protein Albumin Influenza Type A (PCR) NEGATIVE Influenza Type B (PCR) NEGATIVE RSV RNA Qual (PCR) NEGATIVE SARS-CoV-2 RNA (RT-PCR) NEGATIVE Assessment and Plan (1) COPD exacerbation: Status: Acute (2) Inappropriate sinus tachycardia: Status: Acute Plan Pt is a 36-year-old female with a PMH significant for?COPD, SVT, diet-controlled diabetes, pots syndrome, migraines, and subclinical hypothyroidism who presents to the ED with?2 days of worsening SOB and periods of SVT. Patient will be admitted to telemetry for COPD exacerbation management. 1.Asthma with COPD exacerbation -Solu-Medrol 60mg q6 for at least 24 hours -Xopenex q4 2. Intermittent sinus tachycardia -continue metoprolol -follow-up with Cardiology upon DC 3. Diabetes type 2 -acceptable control with diet only -lispro correctional scale 4. POTS -continue current therapies follow-up with Cardiology as an outpatient Full Code Lovenox Pt will require hospitalization for treatment of Asthma/COPD exacerbation. With IV steroids Time Spent With Patient Time: Total time managing care of this patient today ____ minutes. Quality Stroke Does the patient have a stroke diagnosis?: No VTE Prior VTE?: No VTE Risk Level:: Medical - moderate - high VTE Device Contraindication: Treatment Not Indicated VTE Drug Contraindication: N/A - Med Ordered
[2022-03-06] MEDS: oxyCODONE HCl Immed Release 5 MG TABLET PO (13:01)
--- NOTE | 2022-03-06 14:33 | MHC.CM.PN ---
PT REPORTS SHE LIVES WITH HER SON AND IS INDEPENDENT WITH CARE SHE DENIES USE OF SERVICES OR DME PTS PCP IS AT [facility], SHE DOES NOT KNOW THE NAME TIN REECE, NO BOOST NO HCP IMM DLEIVERED CURRENT DC PLAN IS HOME WITH NO SERVICES PT WILL ARRANGE TRANSPORT
[2022-03-06 15:13] LABS: Glucose, Whole Blood 174 mg/dL (60-115)
--- NOTE | 2022-03-06 18:04 | PC.NURSE ---
PATIENT COMPLAINED OF CRUSHING, NON RADIATING CHEST PAIN THAT HAS PERSISTED OVER PAST TWO DAYS. MD MADE AWARE. 5MG OXYCODONE GIVEN PO ONCE, PER MD. SEE EMAR. PATIENT UPDATED ON HEALTH STATUS.
[2022-03-06] MEDS: Enoxaparin Sodium 40 MG/0.4 ML SYRINGE SUBCUT (20:13)
[2022-03-06] MEDS: Acetaminophen 325 MG TABLET 650 MG PO (20:18)
[2022-03-07] VITALS (10 sets, daily range): BP systolic 101–139; BP diastolic 54–72; PULSE 75–160; RESP 16–20; TEMP 36.4–37.1; O2SAT 96–100
[2022-03-07] MEDS: 0.9 % Sodium Chloride Flush 3 ML SYRINGE IVFLUSH ×4 (00:11→19:41)
[2022-03-07] MEDS: hydrOXYzine HCL 25 MG TABLET PO ×2 (00:15→15:31)
[2022-03-07] MEDS: Zolpidem Tartrate 5 MG TABLET 10 MG PO ×2 (00:15→21:58)
[2022-03-07] MEDS: methylPREDNISolone Sod Succ 125 MG/2 ML VIAL 60 MG IVPUSH ×3 (03:55→19:40)
[2022-03-07] MEDS: Metoprolol Succinate ER 12.5 MG HALFTAB.ER.24H PO (08:43)
[2022-03-07] MEDS: Ascorbic Acid 500 MG TABLET PO (08:43)
[2022-03-07] MEDS: Multivitamin TABLET 1 TAB PO (08:43)
[2022-03-07] MEDS: Divalproex Sodium ER 500 MG TAB.ER.24H PO ×2 (10:44→19:41)
--- NOTE | 2022-03-07 11:47 | HO.PM.IMPN ---
Subjective Subjective Date of Service: 03/07/22 Interval History: dyspnea/wheezing improved HR up to 160s at times, in sinus tachycardia Review of Systems Review of Systems: Yes all other systems are reviewed and are negative Physical Exam Vital Signs: Vital Signs: Last Vital Signs Temp 97.8 F 03/07/22 11:18 Pulse 90 03/07/22 11:18 Resp 20 03/07/22 11:18 BP 113/68 03/07/22 11:18 Pulse Ox 96 03/07/22 11:18 O2 Del Method 03/07/22 11:18 BMI result Body Mass Index 23.0 Gen: in no acute distress HEENT: sclera anicteric, moist mucus membranes Neck: supple Lungs: diminished bilaterally, scattered expiratory wheezing Heart: regular, tachycardic, no murmurs Abd: soft, non-tender, non-distended Ext: no edema Skin: warm/well-perfused Neuro: alert and oriented x3, no focal findings Psych: appropriate affect Objective Data Active Medications Acetaminophen (Acetaminophen 325 Mg Tablet) 650 mg PO Q6H PRN PRN Reason: Pain, Mild (Pain Scale 1-3) Last Admin: 03/06/22 20:18 Dose: 650 mg Documented By: RACH Ascorbic Acid (Ascorbic Acid 500 Mg Tablet) 500 mg PO DAILY [facility] Last Admin: 03/07/22 08:43 Dose: 500 mg Documented By: BERTHA-CARLOTA Benzonatate (Benzonatate 100 Mg Capsule) 100 mg PO TID PRN PRN Reason: Cough Clonazepam (Clonazepam 1 Mg Tablet) 1 mg PO BID PRN PRN Reason: Anxiety Divalproex Sodium (Divalproex Sodium Er 500 Mg Tab.Er.24h) 500 mg PO BID [facility] Last Admin: 03/07/22 10:44 Dose: 500 mg Documented By: NAZIA Docusate Sodium (Docusate Sodium 100 Mg Capsule) 100 mg PO DAILY PRN PRN Reason: Constipation Enoxaparin Sodium (Enoxaparin Sodium 40 Mg/0.4 Ml Syringe) 40 mg SUBCUT Q24H [facility] Last Admin: 03/06/22 20:13 Dose: 40 mg Documented By: RACH Hydroxyzine HCl (Hydroxyzine Hcl 25 Mg Tablet) 25 mg PO QID PRN PRN Reason: anxiety Last Admin: 03/07/22 00:15 Dose: 25 mg Documented By: SHASHANK Levalbuterol HCl (Levalbuterol Hcl 1.25 Mg/0.5 Ml Vial.Neb) 1.25 mg INHALE RQ4H WHILE AWAKE [facility] Last Admin: 03/07/22 11:15 Dose: 1.25 mg Documented By: SAYRA Methylprednisolone Sodium Succinate (Methylprednisolone Sod Succ 125 Mg/2 Ml Vial) 60 mg IVPUSH Q12H [facility] Last Admin: 03/07/22 08:43 Dose: 60 mg Documented By: NAZIA Metoprolol Succinate (Metoprolol Succinate Er 12.5 Mg Halftab.Er.24h) 12.5 mg PO DAILY [facility]; Protocol Last Admin: 03/07/22 08:43 Dose: 12.5 mg Documented By: NAZIA Multivitamins/Vitamin C (Multivitamin Tablet) 1 tab PO DAILY [facility] Last Admin: 03/07/22 08:43 Dose: 1 tab Documented By: NAZIA Ondansetron HCl (Ondansetron Hcl 4 Mg/2 Ml Vial) 4 mg IVPUSH Q8H PRN PRN Reason: Nausea and Vomiting Pharmacy Consult (Consult Rx Perform Med Rec) 1 each MISCELLANE ONCE PRN PRN Reason: Consult order Sodium Chloride (0.9 % Sodium Chloride Flush 3 Ml Syringe) 3 ml IVFLUSH QSHIFT [facility] Last Admin: 03/07/22 10:45 Dose: 3 ml Documented By: NAZIA Zolpidem Tartrate (Zolpidem Tartrate 5 Mg Tablet) 10 mg PO BEDTIME PRN PRN Reason: Sleep Last Admin: 03/07/22 00:15 Dose: 10 mg Documented By: SHASHANK Labs 03/05/22 14:26 03/05/22 14:26 Labs: Laboratory Results - last 24 hr 03/06/22 15:09 POC Glucose 174 H Assessment and Plan (1) COPD exacerbation: Status: Acute (2) Inappropriate sinus tachycardia: Status: Acute Plan d#3 36yo F with asthma/COPD, SVT, POTS, diet-controlled DM2, migraine, subclinical hypothyroidism presenting with 2d of dyspnea + periods of SVT # asthma/COPD exacerbation - taper steroids, continue levalbuterol nebs # sinus tachycardia - metoprolol succinate, Cardiology consult # DM2 - correction-dose lispro # VTE ppx: LMWH # dispo: anticipate home when breathing + tachycardia improve Time Spent With Patient Time: Total time managing care of this patient today __30__ minutes. Quality Stroke Does the patient have a stroke diagnosis?: No VTE Prior VTE?: No VTE Risk Level:: Medical - moderate - high VTE Device Contraindication: Treatment Not Indicated VTE Drug Contraindication: N/A - Med Ordered
[2022-03-07] MEDS: Metoprolol Tartrate 5 MG/5 ML VIAL 2.5 MG IVPUSH (11:51)
[2022-03-07] MEDS: Acetaminophen 325 MG TABLET 650 MG PO (12:03)
[2022-03-07] MEDS: ondansetron HCL 4 MG/2 ML VIAL IVPUSH (12:03)
[2022-03-07] MEDS: Butalb/Acetamin/Caff 50/325/40 TABLET 1 TAB PO (15:31)
[2022-03-07] MEDS: Enoxaparin Sodium 40 MG/0.4 ML SYRINGE SUBCUT (19:41)
[2022-03-08] VITALS: BP 90/52; PULSE 75; RESP 16; TEMP 37.1; O2SAT 97
[2022-03-08 04:00] VITALS: BP 99/55; PULSE 59; RESP 16; TEMP 36.6; O2SAT 97
[2022-03-08 08:00] VITALS: BP 100/59; PULSE 59; RESP 18; TEMP 36.6; O2SAT 97
[2022-03-08 08:04] VITALS: PULSE 79; RESP 6; O2SAT 99
[2022-03-08] MEDS: methylPREDNISolone Sod Succ 125 MG/2 ML VIAL 60 MG IVPUSH (08:09)
[2022-03-08] MEDS: Multivitamin TABLET 1 TAB PO (08:09)
[2022-03-08] MEDS: Divalproex Sodium ER 500 MG TAB.ER.24H PO (08:09)
[2022-03-08] MEDS: Acetaminophen 325 MG TABLET 650 MG PO (08:09)
[2022-03-08] MEDS: Ascorbic Acid 500 MG TABLET PO (08:09)
[2022-03-08] MEDS: Metoprolol Succinate ER 12.5 MG HALFTAB.ER.24H PO (08:11)
[2022-03-08] MEDS: 0.9 % Sodium Chloride Flush 3 ML SYRINGE IVFLUSH (08:11)
--- NOTE | 2022-03-08 11:52 | MHC.CM.PN ---
pt to be dcd home no services
[2022-03-08 12:00] VITALS: BP 104/64; PULSE 74; RESP 18; TEMP 36.7; O2SAT 94
--- NOTE | 2022-03-08 14:31 | PM.DS ---
DS: Providers Provider Date of Service: 03/08/22 Date of admission: 03/05/22 17:26 Date of discharge: 03/08/22 Primary care physician: [facility] Consults: 03/07/22 11:49 Consult to Cardiology Routine Consulting Provider: Costa Mireles Reason for consultation: POTS, tachy to 160s DS: Diagnosis Discharge Diagnosis (1) Inappropriate sinus tachycardia: Status: Acute (2) Asthma with COPD with exacerbation: Status: Acute DS: Summary Hospital Course Hospital Course: from admission history and physical by hospitalist MARITZA Ramirez, 03/05/21: Pt is a 36-year-old female with a PMH significant for?COPD, SVT, diet-controlled?diabetes, pots syndrome, migraines,?and subclinical hypothyroidism?who presents to the ED with?2 days of worsening SOB and periods of SVT. Pt also complains of headache, lightheadedness, palpitations, and chest pain,? worse with breathing and coughing.? Pain is in the middle of her chest, does not radiate, and is described as more of a tightness.? Patient has been using her home nebulizer and inhaler, but ran out of her inhaler last night.? The patient states that 2 days ago she also started experiencing cramping in her abdomen and had episodes of diarrhea. Denies any recent illness, nausea, vomiting, fever, chills. Of note, pt was admitted for similar complaints on 05/24/2021. In the ED patient arrived tachycardic in the 160s, subsequently brought down to the 80s after breathing treatment.? Patient was not tachypneic or hypoxic, satting 100% on RA. Labs were unremarkable. CXR showed no acute cardiopulmonary process. Pt was treated with levalbuterol, Solu-Medrol, and magnesium sulfate. Pt will be admitted to observation 36yo F with asthma/COPD, SVT, POTS, diet-controlled DM2, migraine, subclinical hypothyroidism presenting with 2d of dyspnea + palpitations was admitted for asthma/COPD exacerbation and treated with high-dose IV steroids and nebulized pulmonary-specific bronchodilators. Her respiratory status improved. She had runs of inappropriate sinus tachycardia and metoprolol succinate was increased. She was discharged home on a steroid taper and instructed to follow-up with Primary Care, Pulmonology, and Cardiology. Pending at the time of discharge are [id number] levels/phenotype as well as plasma metanephrines. Time Spent with Patient Time attestation: Total time managing care of this patient today __25__ minutes. Discharge coordination time: Less than 30 minutes Quality: Safe Use of Opioids Does Pt have an Active Cancer Diagnosis on the Problem List?: No Quality: Stroke Does the patient have a stroke diagnosis?: No Physical Exam Vital Signs: Vital Signs: Last Vital Signs Temp 98.1 F 03/08/22 12:00 Pulse 74 03/08/22 12:00 Resp 18 03/08/22 12:00 BP 104/64 03/08/22 12:00 Pulse Ox 94 03/08/22 12:00 O2 Del Method 03/08/22 12:00 BMI result Body Mass Index 23.0 Gen: in no acute distress HEENT: sclera anicteric, moist mucus membranes Neck: supple Lungs: clear bilaterally Heart: regular rate and rhythm, no murmurs Abd: soft, non-tender, non-distended Ext: no edema Skin: warm/well-perfused Neuro: alert and oriented x3, no focal findings Psych: appropriate affect Discharge Plan Discharge Anticipated Discharge Date/Time: 03/08/22 12:03 Patient Disposition: Home, Self-Care Discharge Diagnosis: asthma/COPD exacerbation, tachycardia Referrals: [facility] [Primary Care Provider] - 1 Week Richard Sinha MD [Physician] - 2 Weeks Costa Mireles MD [Physician] - 2 Weeks Discharge Medications: New levalbuterol HCl [Xopenex Concentrate] 1.25 mg/0.5 mL Solution For Nebulization 1.25 mg inhalation Q4H PRN (Reason: shortness of breath or wheezing) Qty: 1 0RF metoprolol succinate 25 mg Tablet Extended Release 24 Hr 25 mg PO DAILY Qty: 30 0RF Protocol: Hold for SBP/HR < HOLD for SBP < : 90 HOLD for HR < : 60 prednisone 10 mg tablet See Rx Instructions .ROUTE .COMPLEX Qty: 40 0RF Rx Instructions: 40 mg daily x 4 days, then 30 mg daily x 4 days, then 20 mg daily x 4 days, then 10 mg daily x 4 days Continued clonazepam 1 mg tablet 1 mg PO BID PRN (Reason: Anxiety) divalproex [Depakote ER] 500 mg tablet extended release 24 hr 500 mg PO BID multivitamin Tablet 1 tab PO DAILY ascorbic acid (vitamin C) [Vitamin C] 500 mg Tablet 500 mg PO DAILY zolpidem 10 mg tablet 1 tab PO BEDTIME PRN (Reason: Sleep) Discontinued nitrofurantoin monohyd/m-cryst 100 mg capsule 1 cap PO DAILY metoprolol succinate 25 mg tablet extended release 24 hr 12.5 mg PO DAILY Qty: 90 3RF Discharge Orders: Discharge Order (Routine); Ordered 03/08/22 Ordered By: Nia Newton Activity on Discharge: As tolerated Stand Alone Forms: Patient Portal Discharge page Care Plan Goals: cardiopulmonary health Health Concerns: asthma/COPD exacerbation, tachycardia Plan of Treatment: take prednisone 40 mg daily x 4 days then 30 mg daily x 4 days then 20 mg daily x 4 days then 10 mg daily x 4 days use levalbuterol inhaler for shortness of breath/wheeze follow up with Pulmonology- Dr Richard Sinha- in 1-2 weeks; [id number]-trypsin testing pending increase metoprolol succinate to 25 mg once daily follow up with Cardiology- Dr Costa Mireles- in 2 weeks; plasma metanephrines pending Please follow up with your primary care doctor within 1 week. Return to the hospital if you experience recurrent or worsening symptoms. Assessment: See Discharge Summary.
--- NOTE | 2022-03-08 16:11 | P.CONCA_ITS ---
History of Present Illness History of Present Illness Date of Service: 03/08/22 Requesting physician: Nia Newton Consult reason: other ( tachycardia) Chief complaint: SOB, SVT Narrative: I was consulted to see Guillermina in cardiology consultation today for presence of tachycardia and elevated blood pressure. Known her for many years but she has been poor with her cardiac follow-up. She has prior history of known inappropriate sinus tachycardia as well as SVT, maintained initially on metoprolol and Corlanor therapy with improvement in symptoms. However due to insurance issue her Corlanor was discontinued. She is currently on metoprolol 25 mg daily which she says she has been taking religiously. However at home she was noticing and not feeling well and notice that her blood pressure is elevated along with tachycardia. She had headaches and dizziness with elevated blood pressure. Blood pressure in the range of 150/100. No obvious triggering factor. She came to the hospital as notice of brief run of SVT. Since then she has been more less in sinus rhythm after getting IV metoprolol. Blood pressure is stabilized. At night she had sinus tachycardia which appear to be in appropriate. She also has underlying significant COPD which is very premature for age. She says that grandmother had significant COPD and young age and subsequently had heart failure related to it. She is being followed by Pulmonary. Her current inhalers include Xopenex. Review of Systems Constitutional: Constitutional: Reports no additional constitutional complaints and Reports headache(s) Eyes: Eyes: Reports no additional eye complaints ENT: Reports headache(s) Cardiovascular: Cardiovascular: Denies chest pain, Denies syncope, Reports rapid heart rate, Denies lightheadedness, Denies Loss of Consciousness, Reports palpitations and Reports dyspnea on exertion Respiratory: Respiratory: Reports no additional respiratory complaints and Rep orts dyspnea on exertion Gastrointestinal: Gastrointestinal: Reports no additional gastrointestinal complaints Genitourinary: Genitourinary: Reports no additional female genitourinary complaints Musculoskeletal: Musculoskeletal: Reports no additional musculoskeletal complaints Integumentary/Breasts: Skin/Breast: Reports system reviewed and no additional complaints, except as docu Neurologic: Denies syncope and Reports headache(s) Endocrine: Endocrine: Reports palpitations PMFSH Past Medical History Medical History Asthma with COPD with exacerbation Bipolar 1 disorder Carpal tunnel syndrome COPD (chronic obstructive pulmonary disease) Diabetes mellitus Family history of COPD (chronic obstructive pulmonary disease) Fibromyalgia History of MRSA infection Inappropriate sinus node tachycardia Kidney stones Polycystic ovarian disease Postural orthostatic tachycardia syndrome POTS (postural orthostatic tachycardia syndrome) Schizoaffective disorder Subclinical hyperthyroidism SVT (supraventricular tachycardia) UTI (urinary tract infection) Family History Family History Other COPD (chronic obstructive pulmonary disease) Surgical History Surgical History History of renal stent History of tubal ligation Hx of abdominoplasty Hx of lithotripsy Tubal ligation status Social History Social History Household Members: Children Housing: Apartment Do you presently have visiting nurse or other home services: No Alcohol intake: never Patient Tobacco Use Status: Never used Tobacco Second Hand Smoke Exposure: No service: No Current occupational status: unemployed Meds Allergies Allergy/AdvReac Type Severity Reaction Status Date / Time magnesium Allergy Unknown Chest Pain Verified 03/05/22 15:50 somatropin [SOMATROPIN] Allergy Unknown UNKNOWN Verified 05/23/21 17:48 amitriptyline [AMITRIPTYLINE] AdvReac Intermediate NAUSEA, Verified 05/23/21 17:48 DIZZINESS albuterol [ALBUTEROL] AdvReac Mild TACHYCARDIA Verified 05/23/21 17:48 esomeprazole [From NEXIUM] AdvReac Mild TACHYCARDIA Verified 05/23/21 17:48 Home Medications Medication Instructions Recorded Confirmed Last Taken Type clonazepam 1 mg tablet 1 mg PO BID PRN Anxiety 12/13/19 03/05/22 03/04/22 History divalproex 500 mg tablet,extended 500 mg PO BID 07/10/20 03/05/22 03/04/22 History release 24 hr (Depakote ER) zolpidem 10 mg tablet 1 tab PO BEDTIME PRN Sleep 05/24/21 03/05/22 03/04/22 History ascorbic acid (vitamin C) 500 mg 500 mg PO DAILY 03/05/22 03/05/22 03/04/22 History tablet (Vitamin C) multivitamin 1 tab PO DAILY 03/05/22 03/05/22 03/04/22 History Physical Exam Vital Signs: Vital Signs: Last Vital Signs Temp 98.1 F 03/08/22 12:00 Pulse 74 03/08/22 12:00 Resp 18 03/08/22 12:00 BP 104/64 03/08/22 12:00 Pulse Ox 94 03/08/22 12:00 O2 Del Method 03/08/22 12:00 BMI result Body Mass Index 23.0 Const: General: cooperative, comfortable, no acute distress, alert and awake Nutritional Appearance: thin Orientation/consciousness: patient oriented x3 Limitations: no limitations HEENT: Head: Yes normocephalic and Yes atraumatic Neck: Neck: Yes trachea midline, Yes supple and Yes no JVD Resp: Effort & Inspection: normal respiratory effort Auscultation: no crackles, no rhonchi, no wheezes and diminished lung sounds Cardio: Jugular venous distension: no JVD Palpation: normal PMI Rate: regular rate Rhythm: regular rhythm Heart sounds: S1 normal heart sound present, S2 normal heart sound present, no click, no gallops, no murmurs and no rubs GI: Auscultation: normal bowel sounds Skin: General skin exam: no rashes or lesions noted Neuro: General: patient oriented x3 and no focal motor deficits Extrem: General: Yes no clubbing, cyanosis or edema Psych: Appearance: grossly normal Objective Labs and Meds 03/05/22 14:26 03/05/22 14:26 Assessment and Plan (1) SVT (supraventricular tachycardia): Status: Acute Patient with symptoms of palpitation elevated blood pressure. There appears to be event of SVT. She has had prior history of SVT. Current time with symptoms of subsided. She has remained more less in sinus rhythm. Would increase her metoprolol to 50 mg daily. She continues to have persistent episode of recurrent SVT will require EPS consultation. Avoidance of stimulants was discussed. Continue with pulmonary specific bronchodilators such as Xopenex. Continue to optimize pulmonary function. (2) Inappropriate sinus tachycardia: Status: Acute Inappropriate sinus tachycardia in this young woman has been long-lasting for many years. She in the past was on Corlanor therapy with good response but due to insurance issue at to be discontinued. Could also be due to reduce pulmonary reserves. Continue metoprolol therapy as above. Maintain adequate hydration. Advised to avoid stimulants such as caffeine. She understands agrees. Given that she has intermittent hypertension associated tachycardia would need to evaluate for pheochromocytoma although likelihood is low. Consider outpatient plasma metanephrines. Will follow-up as outpatient. Patient recommend it to follow-up more regularly as outpatient. Time Spent With Patient Time: Total time managing care of this patient today ____ minutes. Procedures Date of Service Date of Service: 03/08/22
[2022-03-10 13:09] LABS: Alpha 1 Anti-trypsin 124 mg/dL (83-199)
[2022-03-13 14:04] LABS: Metanephrine, Free 32 pg/mL (<=57); Normetanephrines, Free <25 pg/mL (<=148); Total Metanephrine, Free 32 pg/mL (<=205)
[2022-03-19 13:02] LABS: A1A Clinical Indication NG
== END 2022-03-08 15:55 | disposition home or self-care (01) | DRG 202 ==
LOC: HO.ED 16:11 → HO.EDOVER 17:35 → HO.IMC 19:07
PROVIDERS: Hospitalist; Internal Medicine; Physician Assistant; Admitting Provider Student in an Organized Health Care Education/Training Program; Emergency Provider Emergency Medicine; Visit Provider Family Medicine
DX: J45.901 Unspecified asthma with (acute) exacerbation (principal); I47.1 Supraventricular tachycardia; J44.1 Chronic obstructive pulmonary disease with (acute) exacerbation; F31.9 Bipolar disorder, unspecified; E03.8 Other specified hypothyroidism; E11.9 Type 2 diabetes mellitus without complications; G90.A Postural orthostatic tachycardia syndrome [POTS]; Z20.822 Contact with and (suspected) exposure to COVID-19; Z88.8 Allergy status to other drugs, medicaments and biological substances; Z79.899 Other long term (current) drug therapy
CPT/HCPCS: 0241U; 36415; 71045; 80048; 80076; 82103; 82104; 82947; 83735; 83835; 84484; 85025; 93005; 94640; 94664; 99285; J1650; J2405; J2930; J3475

== ENCOUNTER → 2022-03-18 14:09 | Outpatient (REF) | payer OTHER, SELFPAY ==
--- NOTE | 2022-03-18 14:13 | HM_ITS ---
* Total monitoring time 3 days. * Underlying rhythm is sinus. Average ventricular rate 87/Min. Range 63 to 187/Min. * About 12% of the time, rate greater than 100/Min. * No significant ectopy or other arrhythmias. * No significant pauses or AV blocks. * No patient diary. MTDD
== END ==
LOC: HO.CARD 14:09
PROVIDERS: Visit Provider Internal Medicine Cardiovascular Disease
DX: I47.1 Supraventricular tachycardia (principal)
CPT/HCPCS: 93242

== ENCOUNTER → 2022-03-22 14:51 | Outpatient (BNVA) | payer OTHER, SELFPAY | PROVIDERS: Visit Provider Internal Medicine | DX: J44.1 Chronic obstructive pulmonary disease with (acute) exacerbation (principal); J45.901 Unspecified asthma with (acute) exacerbation | CPT/HCPCS: 99212 ==

== ENCOUNTER → 2022-04-20 11:08 | Outpatient (BNVA) | payer OTHER, SELFPAY | PROVIDERS: PCP Internal Medicine Geriatric Medicine; Visit Provider Internal Medicine | DX: J44.9 Chronic obstructive pulmonary disease, unspecified (principal) | CPT/HCPCS: 99212 ==

== ENCOUNTER 2022-05-17 10:57 | Emergency (ER) | payer OTHER, SELFPAY ==
--- NOTE | ~2022-05-17 | XR_ITS ---
EXAMINATION: XR CHEST CLINICAL INFORMATION: Cough, shortness of breath COMPARISON: 03/05/2022 TECHNIQUE: 2 views of the chest were obtained. FINDINGS: Cardiac silhouette is within normal limits. No focal consolidation, pleural effusion, or pneumothorax. No acute osseous abnormality. XR/XR chest 2V IMPRESSION: Unremarkable examination.
[2022-05-17 11:03] VITALS: BP 149/91; PULSE 112; RESP 18; TEMP 36.9; O2SAT 97; BMI 22.8
--- NOTE | 2022-05-17 12:10 | ECG_ITS ---
Test Reason : SOB Blood Pressure : / mmHG Vent. Rate : 074 BPM Atrial Rate : 074 BPM P-R Int : 126 ms QRS Dur : 084 ms QT Int : 370 ms P-R-T Axes : 029 064 046 degrees QTc Int : 410 ms Normal sinus rhythm Normal ECG When compared with ECG of 05-MAR-2022 21:10, No significant change was found Referred By: Aura Santos Electronically Signed By:TOM CASTORENA
[2022-05-17 12:38] LABS: MANUAL DIFF FLAG NO
[2022-05-17 12:40] LABS: Basophils Absolute Auto 0.1 X10*3/uL (0.0-0.2); Eosinophils Absolute Auto 0.1 X10*3/uL (0.0-0.4); Eosinophils Percent Auto 1.1 % (0-4); Hematocrit 42.3 % (37.0-47.0); Hemoglobin 14.1 g/dl (12.0-16.0); Imm Gran Abs Auto 0.03 X10*3/uL (0.00-0.03); Imm Gran Pct Auto 0.4 % (0.0-0.4); Lymphocytes Absolute Auto 1.3 X10*3/uL (1.2-4.9); Lymphocytes Percent Auto 18.5 % (20-40); Mean Corpuscular HGB Conc 33.3 g/dl (31.0-35.0); Mean Corpuscular Hemoglobin 29.1 pg (27.0-33.0); Mean Corpuscular Volume 87.4 fL (80.0-98.0); Monocytes Absolute Auto 1.3 X10*3/uL (0.1-1.2); Monocytes Percent Auto 17.7 % (2-11); Neutrophils Absolute Auto 4.4 x10*3/uL (2.0-8.3); Neutrophils Percent Auto 61.3 % (45-73); Platelet Count 292 X10*3/uL (160-400); Red Blood Count 4.84 X10*6/uL (4.20-5.50); Red Cell Distribution Width 12.6 % (11.0-16.0); White Blood Count 7.2 X10*3/uL (4.8-10.8)
[2022-05-17 12:43] LABS: Influenza A PCR NEGATIVE (Negative); Influenza B PCR NEGATIVE (Negative); Resp Syncy Virus RNA Qual PCR NEGATIVE (Negative); SARS COV2 PCR INHOUSE POSITIVE (Negative)
--- NOTE | 2022-05-17 12:51 | ED.URI ---
HPI - URI/Sore Throat General Chief Complaint: Upper Respiratory Symptoms Stated Complaint: SOB Time Seen by Provider: 05/17/22 12:26 Source: patient Mode of arrival: ambulatory Limitations: no limitations History of Present Illness HPI Narrative: 36-year-old female came in for evaluation of shortness of breath, cough with clear sputum, fever, sore throat, body ache, patient was exposed to her boyfriend who was sick few days ago. Patient is nonsmoker with history of COPD. Related Data Home Medications Medication Instructions Recorded Confirmed clonazepam 1 mg tablet 1 mg PO BID PRN Anxiety 12/13/19 03/05/22 divalproex 500 mg tablet,extended 500 mg PO BID 07/10/20 03/05/22 release 24 hr (Depakote ER) zolpidem 10 mg tablet 1 tab PO BEDTIME PRN Sleep 05/24/21 03/05/22 ascorbic acid (vitamin C) 500 mg 500 mg PO DAILY 03/05/22 03/05/22 tablet (Vitamin C) multivitamin 1 tab PO DAILY 03/05/22 03/05/22 Previous Rx's Medication Instructions Recorded metoprolol succinate 25 mg 25 mg PO DAILY #30 tabs 03/08/22 tablet,extended release 24 hr fluticasone 250 mcg-salmeterol 50 1 inh inhalation BID copd 30 days 04/20/22 mcg/dose blistr powdr for #60 ea inhalation (Wixela Inhub) levalbuterol HCl 1.25 mg/3 mL 1.25 mg (3 mL) inhalation Q4H PRN 05/17/22 solution for nebulization for wheezing #180 mL prednisone 20 mg tablet 20 mg PO BID #10 tabs 05/17/22 Allergies Allergy/AdvReac Type Severity Reaction Status Date / Time magnesium Allergy Unknown Chest Pain Verified 04/20/22 11:42 somatropin [SOMATROPIN] Allergy Unknown UNKNOWN Verified 04/20/22 11:42 amitriptyline [AMITRIPTYLINE] AdvReac Intermediate NAUSEA, Verified 04/20/22 11:42 DIZZINESS albuterol [ALBUTEROL] AdvReac Mild TACHYCARDIA Verified 04/20/22 11:42 esomeprazole [From NEXIUM] AdvReac Mild TACHYCARDIA Verified 04/20/22 11:42 Review of Systems Review of Systems: All other systems are reviewed and are negative Constitutional: Reports as per HPI and Reports no additional constitutional complaints Eyes: Reports as per HPI and Reports no additional eye complaints Reports system reviewed and no additional complaints, except as documented Cardiovascular: Reports as per HPI and Reports no additional cardiovascular complaints Respiratory: Reports as per HPI and Reports no additional respiratory complaints Gastrointestinal: Reports as per HPI and Reports no additional gastrointestinal complaints Genitourinary: Reports no additional female genitourinary complaints Musculoskeletal: Reports no additional musculoskeletal complaints Skin/Breast: Reports system reviewed and no additional complaints, except as docu Psychiatric: Reports no additional psychiatric complaints Endocrine: Reports no additional endocrine complaints Hematologic/Lymphatic: Reports no additional hematologic/lymphatic complaints Allergic/Immunologic: Reports no additional allergic/immunologic complaints Reports system reviewed and no additional complaints, except as documented and Reports Abnormal speech present [facility] Past Medical History Medical History Asthma with COPD with exacerbation Asthma-COPD overlap syndrome Bipolar 1 disorder Carpal tunnel syndrome COPD (chronic obstructive pulmonary disease) COPD exacerbation Diabetes mellitus Family history of COPD (chronic obstructive pulmonary disease) Fibromyalgia History of MRSA infection Inappropriate sinus node tachycardia Inappropriate sinus tachycardia Kidney stones Polycystic ovarian disease Postural orthostatic tachycardia syndrome POTS (postural orthostatic tachycardia syndrome) Schizoaffective disorder Subclinical hyperthyroidism SVT (supraventricular tachycardia) UTI (urinary tract infection) Surgical History History of renal stent History of tubal ligation Hx of abdominoplasty Hx of lithotripsy Tubal ligation status Family History Family History Other COPD (chronic obstructive pulmonary disease) Social History Social History Household Members: Children Housing: Apartment Do you presently have visiting nurse or other home services: No Alcohol intake: never Patient Tobacco Use Status: Never used Tobacco Second Hand Smoke Exposure: No Advance Directives: No Advance Directives Information Provided: Yes service: No Current occupational status: unemployed Physical Exam Vital Signs: Vital Signs: Last Vital Signs Temp 97.6 F 05/17/22 15:07 Pulse 114 H 05/17/22 15:07 Resp 18 05/17/22 15:07 BP 116/71 05/17/22 15:07 Pulse Ox 98 05/17/22 15:07 O2 Del Method Room Air 05/17/22 15:07 BMI result Body Mass Index 22.8 Vital signs have been reviewed as appeared to be correct. Blood pressure normal. Heart rate elevated. Respiration rate normal. Temperature normal. Oxygen saturation normal. Appearance: Alert. Oriented X3. No acute distress. Head: Normal external exam. Normocephalic. Atraumatic. No [place] signs noted. No raccoon eyes noted Eyes: PERRLA. EOMI. Conjunctiva and sclera normal. Eyelids normal. ENT: TM's Normal. Pharynx normal. Uvula midline. Moist mucous membranes. No trismus noted. No drooling noted. No muffled voice noted. Neck: Normal inspection. Neck supple. FROM. No adenopathy. Thyroid Normal. No meningeal signs. No neck mass noted. CVS: Normal heart rate and rhythm. Heart sound normal. No murmurs noted. Pulses normal throughout. Respiratory: No respiratory distress. Painless inspiration. Breath sounds normal. Diffuse mild expiratory wheezing with prolonged expiration and decreased breathing sound bilaterally. No accessory muscle usage noted or decreased air movement noted. Abdomen: Soft and nontender. Bowel sounds normal in all 4 quadrants. No distention noted. No organomegaly noted. No visible injury noted. Back: No CVA tenderness. Full range of motion noted. Skin: Skin warm and dry. Normal skin color. Normal skin turgor. No rashes/lesions/lacerations noted. Extremities: No lower extremity edema. Extremities exhibit normal range of motion. Extremities nontender. Neuro: Oriented X 3. Cranial nerve exam: II-XII are grossly intact No motor deficit. No sensory deficit. Reflexes normal. Course Course Course Narrative: COVID-19 infection, acute asthma exacerbation. No pneumonia, no other infection. Bilateral chest wall contusion due to coughing. O2 sat is 97%. Tachycardia due to bronchodilator, patient do not feeling palpitation. Medications Administered Discontinued Medications Generic Name Dose Route Start Last Admin Trade Name Freq PRN Reason Stop Dose Admin Albuterol Sulfate 7.5 mg 05/17/22 12:50 05/17/22 13:27 Albuterol Sulfate (0.083%) 2.5 Mg/3 Ml Vial.Neb INHALE 05/17/22 12:51 Not Given ONCE ONE Levalbuterol HCl 2.5 mg 05/17/22 13:33 05/17/22 13:36 Levalbuterol Hcl 1.25 Mg/0.5 Ml Vial.Neb INHALE 05/17/22 13:34 2.5 mg ONCE ONE Administration Prednisone 40 mg 05/17/22 12:50 05/17/22 12:56 Prednisone 20 Mg Tablet PO 05/17/22 12:51 40 mg ONCE ONE Administration Medical Decision Making Differential Diagnosis Differential Diagnoses: The differential diagnosis associated with the presentation includes (Asthma, COPD exacerbation, bronchitis, pneumonia, COVID-19 infection, influenza, strep pharyngitis, anemia, electrolyte disturbance.) Lab Data MDM Lab Attestation statement: I reviewed the patient's lab results. 05/17/22 12:32 05/17/22 12:32 Labs: Lab Results 05/17/22 05/17/22 05/17/22 Range/Units 11:21 12:32 12:32 WBC 7.2 (4.8-10.8) X10*3/uL RBC 4.84 (4.20-5.50) X10*6/uL Hgb 14.1 (12.0-16.0) g/dl Hct 42.3 (37.0-47.0) % MCV 87.4 (80.0-98.0) fL MCH 29.1 (27.0-33.0) pg MCHC 33.3 (31.0-35.0) g/dl RDW 12.6 (11.0-16.0) % Plt Count 292 D (160-400) X10*3/uL MPV 10.0 (9.4-12.3) fL Immature Gran % (Auto) 0.4 (0.0-0.4) % Neut % (Auto) 61.3 (45-73) % Lymph % (Auto) 18.5 L (20-40) % Braxton % (Auto) 17.7 H (2-11) % Eos % (Auto) 1.1 (0-4) % Baso % (Auto) 1.0 (0-2) % Lymph # (Auto) 1.3 (1.2-4.9) X10*3/uL Braxton # (Auto) 1.3 H (0.1-1.2) X10*3/uL Eos # (Auto) 0.1 (0.0-0.4) X10*3/uL Baso # (Auto) 0.1 (0.0-0.2) X10*3/uL Abs Immat Gran (auto) 0.03 (0.00-0.03) X10*3/uL Absolute Neuts (auto) 4.4 (2.0-8.3) x10*3/uL Absolute Nucleated RBC 0.000 (0.0-0.012) X10*3/uL Nucleated RBC % (auto) 0.0 (0.0-0.2) /100WBC PT 12.0 (10.0-13.1) SEC INR 1.0 (0.9-1.1) Sodium (135-145) mmol/L Potassium (3.3-5.1) mmol/L Chloride (96-108) mmol/L Carbon Dioxide (22-29) mmol/L Anion Gap (12-20) BUN (9-16) mg/dL Creatinine (0.5-1.4) mg/dL Estim Creat Clear Calc Estimated GFR Random Glucose (60-115) mg/dL Calcium (8.4-10.2) mg/dL Magnesium (1.6-2.6) mg/dL Total Bilirubin (0.0-1.0) mg/dL AST (5-31) U/L ALT (0-31) U/L Alkaline Phosphatase (39-117) U/L Total Protein (6.5-8.0) g/dL Albumin (3.5-5.0) g/dL Beta HCG, Quant mIU/mL Influenza Type A (PCR) NEGATIVE (Negative) Influenza Type B (PCR) NEGATIVE (Negative) RSV RNA Qual (PCR) NEGATIVE (Negative) SARS-CoV-2 RNA (RT-PCR) POSITIVE A (Negative) S. pyogenes GrpA RITESH (Negative) 05/17/22 05/17/22 Range/Units 12:32 12:39 WBC (4.8-10.8) X10*3/uL RBC (4.20-5.50) X10*6/uL Hgb (12.0-16.0) g/dl Hct (37.0-47.0) % MCV (80.0-98.0) fL MCH (27.0-33.0) pg MCHC (31.0-35.0) g/dl RDW (11.0-16.0) % Plt Count (160-400) X10*3/uL MPV (9.4-12.3) fL Immature Gran % (Auto) (0.0-0.4) % Neut % (Auto) (45-73) % Lymph % (Auto) (20-40) % Braxton % (Auto) (2-11) % Eos % (Auto) (0-4) % Baso % (Auto) (0-2) % Lymph # (Auto) (1.2-4.9) X10*3/uL Braxton # (Auto) (0.1-1.2) X10*3/uL Eos # (Auto) (0.0-0.4) X10*3/uL Baso # (Auto) (0.0-0.2) X10*3/uL Abs Immat Gran (auto) (0.00-0.03) X10*3/uL Absolute Neuts (auto) (2.0-8.3) x10*3/uL Absolute Nucleated RBC (0.0-0.012) X10*3/uL Nucleated RBC % (auto) (0.0-0.2) /100WBC PT (10.0-13.1) SEC INR (0.9-1.1) Sodium 138 (135-145) mmol/L Potassium 4.4 (3.3-5.1) mmol/L Chloride 105 (96-108) mmol/L Carbon Dioxide 25 (22-29) mmol/L Anion Gap 12 (12-20) BUN 7 L (9-16) mg/dL Creatinine 0.78 (0.5-1.4) mg/dL Estim Creat Clear Calc 72.9 Estimated GFR > 60 Random Glucose 81 (60-115) mg/dL Calcium 9.3 D (8.4-10.2) mg/dL Magnesium 1.8 (1.6-2.6) mg/dL Total Bilirubin 0.2 (0.0-1.0) mg/dL AST 22 (5-31) U/L ALT 17 (0-31) U/L Alkaline Phosphatase 56 (39-117) U/L Total Protein 6.9 (6.5-8.0) g/dL Albumin 4.1 (3.5-5.0) g/dL Beta HCG, Quant < 2 mIU/mL Influenza Type A (PCR) (Negative) Influenza Type B (PCR) (Negative) RSV RNA Qual (PCR) (Negative) SARS-CoV-2 RNA (RT-PCR) (Negative) S. pyogenes GrpA RITESH Negative (Negative) Independent Interpretation I performed an independent interpretation of an: Plain X-Ray (Chest: No acute intrathoracic pathology.) Radiology Impression Discussion of test interpretation with radiology: I have reviewed the radiologist's reading. Discharge Plan Discharge Clinical Impression: COVID-19 virus infection, Asthma exacerbation Patient Disposition: Home, Self-Care Instructions: Asthma (ED), COVID-19 (Coronavirus Disease 2019) (ED) Prescriptions: New prednisone 20 mg tablet 20 mg PO BID Qty: 10 0RF No Action levalbuterol HCl 1.25 mg/3 mL solution for nebulization 1.25 mg inhalation Q4H PRN (Reason: for wheezing) Qty: 180 0RF clonazepam 1 mg tablet 1 mg PO BID PRN (Reason: Anxiety) divalproex [Depakote ER] 500 mg tablet extended release 24 hr 500 mg PO BID multivitamin Tablet 1 tab PO DAILY ascorbic acid (vitamin C) [Vitamin C] 500 mg Tablet 500 mg PO DAILY metoprolol succinate 25 mg Tablet Extended Release 24 Hr 25 mg PO DAILY Qty: 30 0RF Protocol: Hold for SBP/HR < HOLD for SBP < : 90 HOLD for HR < : 60 zolpidem 10 mg tablet 1 tab PO BEDTIME PRN (Reason: Sleep) fluticasone propion-salmeterol [Wixela Inhub] 250-50 mcg/dose blister with device 1 inh inhalation BID 30 Days Qty: 60 3RF Referrals: Name,MD Mike [Primary Care Provider] -
[2022-05-17] MEDS: predniSONE 20 MG TABLET 40 MG PO (12:56)
[2022-05-17 13:02] LABS: Alanine Aminotransferase 17 U/L (0-31); Albumin Level 4.1 g/dL (3.5-5.0); Alkaline Phosphatase 56 U/L (39-117); Anion Gap 12 (12-20); Aspartate Amino Transferase 22 U/L (5-31); Bilirubin Total 0.2 mg/dL (0.0-1.0); Blood Urea Nitrogen 7 mg/dL (9-16); Calcium 9.3 mg/dL (8.4-10.2); Carbon Dioxide 25 mmol/L (22-29); Chloride 105 mmol/L (96-108); Creatinine Clr Calc Pharmacy 72.9; Estimated Glomerular Filt Rate > 60; Glucose Random 81 mg/dL (60-115); HCG Quantitative < 2 mIU/mL; Magnesium 1.8 mg/dL (1.6-2.6); Potassium 4.4 mmol/L (3.3-5.1); Sodium 138 mmol/L (135-145); Total Protein 6.9 g/dL (6.5-8.0)
[2022-05-17 13:07] LABS: IDNOW Serial# 08D9AD1C; Strep A Nucleic Acid Negative (Negative)
[2022-05-17 13:35] VITALS: PULSE 77; RESP 18; O2SAT 96
[2022-05-17 15:07] VITALS: BP 116/71; PULSE 114; RESP 18; TEMP 36.4; O2SAT 98
--- NOTE | 2022-05-17 15:25 | ECG_ITS ---
Test Reason : PALPITATIONS Blood Pressure : / mmHG Vent. Rate : 107 BPM Atrial Rate : 107 BPM P-R Int : 136 ms QRS Dur : 084 ms QT Int : 490 ms P-R-T Axes : 059 058 054 degrees QTc Int : 654 ms Sinus tachycardia Nonspecific T wave abnormality Prolonged QT Abnormal ECG When compared with ECG of 17-MAY-2022 12:29, Nonspecific T wave abnormality now evident in Anterolateral leads QT has lengthened Referred By: Sofy Hernandez Electronically Signed By:TOM CASTORENA
== END 2022-05-17 15:46 | disposition home or self-care (01) ==
PROVIDERS: Physician Assistant Medical; Emergency Provider Emergency Medicine; PCP Internal Medicine Geriatric Medicine
DX: U07.1 COVID-19 (principal); R06.02 Shortness of breath; E11.9 Type 2 diabetes mellitus without complications; J44.9 Chronic obstructive pulmonary disease, unspecified; Z86.14 Personal history of Methicillin resistant Staphylococcus aureus infection; Z79.899 Other long term (current) drug therapy
CPT/HCPCS: 0241U; 36415; 71046; 80053; 83735; 84702; 85025; 85610; 87651; 93005; 94640; 99284

== ENCOUNTER → 2022-05-27 09:50 | Outpatient (BNVA) | payer OTHER, SELFPAY | PROVIDERS: PCP Internal Medicine Geriatric Medicine; Referring Provider Internal Medicine Geriatric Medicine; Visit Provider Internal Medicine Cardiovascular Disease | DX: I47.1 Supraventricular tachycardia (principal) | CPT/HCPCS: 99212 ==

== ENCOUNTER 2022-07-26 22:21 | Emergency (ER) | payer OTHER, SELFPAY ==
--- NOTE | 2022-07-26 | ECG_ITS ---
Test Reason : CHEST PAIN Blood Pressure : / mmHG Vent. Rate : 111 BPM Atrial Rate : 111 BPM P-R Int : 114 ms QRS Dur : 082 ms QT Int : 356 ms P-R-T Axes : 069 067 059 degrees QTc Int : 484 ms Sinus tachycardia Possible Left atrial enlargement Borderline ECG When compared with ECG of 17-MAY-2022 15:38, Nonspecific T wave abnormality no longer evident in Lateral leads Referred By: Generic ED Physician Electronically Signed By:Jam Jeffers
--- NOTE | ~2022-07-26 | XR_ITS ---
EXAMINATION: XR CHEST CLINICAL INFORMATION: Chest pain COMPARISON: 05/17/2022 TECHNIQUE: Frontal view of the chest was obtained. FINDINGS: The lungs are well expanded. There is no focal consolidation, edema, or effusion. No pneumothorax. The cardiomediastinal silhouette is within normal limits. No acute osseous abnormality. XR/XR chest 1V IMPRESSION: Clear lungs.
[2022-07-26 22:24] VITALS: BP 153/109; PULSE 120; TEMP 37.1; O2SAT 100; BMI 23.0
[2022-07-26 22:47] LABS: Hematocrit 41.7 % (37.0-47.0); Hemoglobin 14.2 g/dl (12.0-16.0); Mean Corpuscular HGB Conc 34.1 g/dl (31.0-35.0); Mean Corpuscular Volume 85.3 fL (80.0-98.0); Mean Platelet Volume 9.9 fL (9.4-12.3); Platelet Count 382 X10*3/uL (160-400); Red Blood Count 4.89 X10*6/uL (4.20-5.50); Red Cell Distribution Width 12.6 % (11.0-16.0); White Blood Count 8.7 X10*3/uL (4.8-10.8)
[2022-07-26 23:01] LABS: Alanine Aminotransferase 20 U/L (0-31); Albumin Level 4.5 g/dL (3.5-5.0); Alkaline Phosphatase 69 U/L (39-117); Anion Gap 14 (12-20); Aspartate Amino Transferase 21 U/L (5-31); Bilirubin Total 0.3 mg/dL (0.0-1.0); Blood Urea Nitrogen 9 mg/dL (9-16); Carbon Dioxide 23 mmol/L (22-29); Chloride 107 mmol/L (96-108); Creatinine Clr Calc Pharmacy 79.1; Estimated Glomerular Filt Rate > 60; Glucose Random 148 mg/dL (60-115); Sodium 140 mmol/L (135-145); Total Protein 7.7 g/dL (6.5-8.0)
[2022-07-26 23:09] LABS: Troponin-I High Sensitivity < 2.7 ng/L (<3.5-17.0)
--- NOTE | 2022-07-27 01:56 | ED.CHESTPAIN ---
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 Patient claims the tightness has been ongoing since approximately 13:00. It is sometimes made worse with ambulation. It is not associated with any diaphoresis. There is no fever. There is no leg swelling. There is no history of blood clot. She has a history of POTS SVT and COPD but no history of diabetes, hypertension, mi, family history of [place]. She is on metoprolol for the SVTs. Patient denies any travel history. There is no leg swelling. Not on control. Pain is not made worse with deep breath. There is no coughing no congestion upper respiratory symptoms. Related Data Home Medications Medication Instructions Recorded Confirmed clonazepam 1 mg tablet 1 mg PO BID PRN Anxiety 12/13/19 05/27/22 divalproex 500 mg tablet,extended 500 mg PO BID 07/10/20 05/27/22 release 24 hr (Depakote ER) zolpidem 10 mg tablet 1 tab PO BEDTIME PRN Sleep 05/24/21 05/27/22 ascorbic acid (vitamin C) 500 mg 500 mg PO DAILY 03/05/22 05/27/22 tablet (Vitamin C) multivitamin 1 tab PO DAILY 03/05/22 05/27/22 Previous Rx's Medication Instructions Recorded metoprolol succinate 25 mg 25 mg PO DAILY #30 tabs 03/08/22 tablet,extended release 24 hr fluticasone 250 mcg-salmeterol 50 1 inh inhalation BID copd 30 days 04/20/22 mcg/dose blistr powdr for #60 ea inhalation (Wixela Inhub) prednisone 20 mg tablet 20 mg PO BID #10 tabs 05/17/22 levalbuterol tartrate 45 2 puff PO Q4-6H PRN for wheezing 06/13/22 mcg/actuation aerosol inhaler #15 ea levalbuterol HCl 1.25 mg/3 mL 1.25 mg (3 mL) inhalation Q4H PRN 07/26/22 solution for nebulization for wheezing #150 mL Allergies Allergy/AdvReac Type Severity Reaction Status Date / Time magnesium Allergy Unknown Chest Pain Verified 04/20/22 11:42 somatropin [SOMATROPIN] Allergy Unknown UNKNOWN Verified 04/20/22 11:42 amitriptyline [AMITRIPTYLINE] AdvReac Intermediate NAUSEA, Verified 04/20/22 11:42 DIZZINESS albuterol [ALBUTEROL] AdvReac Mild TACHYCARDIA Verified 04/20/22 11:42 esomeprazole [From NEXIUM] AdvReac Mild TACHYCARDIA Verified 04/20/22 11:42 Review of Systems Review of Systems: No fever no chills PMFSH Past Medical History Attestation statement: The following information was validated with the patient. Medical History Asthma with COPD with exacerbation Asthma-COPD overlap syndrome Bipolar 1 disorder Carpal tunnel syndrome COPD (chronic obstructive pulmonary disease) COPD exacerbation Diabetes mellitus Family history of COPD (chronic obstructive pulmonary disease) Fibromyalgia History of MRSA infection Inappropriate sinus node tachycardia Inappropriate sinus tachycardia Kidney stones Polycystic ovarian disease Postural orthostatic tachycardia syndrome POTS (postural orthostatic tachycardia syndrome) Schizoaffective disorder Subclinical hyperthyroidism SVT (supraventricular tachycardia) UTI (urinary tract infection) Surgical History History of renal stent History of tubal ligation Hx of abdominoplasty Hx of lithotripsy Tubal ligation status Family History Family History Other COPD (chronic obstructive pulmonary disease) Social History Social History Household Members: Children Housing: Apartment Do you presently have visiting nurse or other home services: No Alcohol intake: never Patient Tobacco Use Status: Never used Tobacco Second Hand Smoke Exposure: No Advance Directives: No Advance Directives Information Provided: No service: No Current occupational status: unemployed Physical Exam Vital Signs: Vital Signs: Last Vital Signs Temp 98.3 F 07/27/22 02:21 Pulse 72 07/27/22 02:21 Resp 20 07/27/22 02:21 BP 127/73 07/27/22 02:21 Pulse Ox 98 07/27/22 02:21 O2 Del Method Room Air 07/27/22 02:21 BMI result Body Mass Index 23.0 Appearance: Alert. Oriented X3. No acute distress. Eyes: Pupils equal, round and reactive to light. ENT: Pharynx normal. Neck: Normal inspection. Neck supple. No lymph nodes noted. No crepitus CVS: Normal heart rate and rhythm. Pulses normal. Normal S1 and S2 Respiratory: No respiratory distress. Breath sounds normal. No Wheezing. No rales Abdomen: Soft and nontender. No rigidity. No distention. good BS x4 Skin: Skin warm and dry. Normal skin color. Normal skin turgor. Extremities: No lower extremity edema. Neurovascular intact to all extremities. No Lacerations. No Rash Neuro: Oriented X 3. No motor deficit. No sensory deficit. Moving all extermities. No slurred speech Medical Decision Making Medical Decision Making [facility] Narrative: My interpretation of patient's EKG showed a sinus pattern heart rate is 100 [place] QRS QT within normal limits there is nonspecific T-wave flattening noted diffusely. However the EKG is not changed from a previous EKG from May 17. Patient has chest pain that is constant. She is 36 years old without any acute cardiac risk factors. First set of enzymes negative. Will get a 2nd set. Will monitor closely. Patient has no risk factor for pulmonary emboli. Chest x-ray pending. Patient's chest x-ray showed no evidence of pneumonia no pneumothorax by my interpretation. Patient's 2nd set of troponin was negative. D-dimer is negative at less than 150. In the setting of low risk patient unlikely Differential Diagnosis PE, ACS, pneumonia, pneumothorax Lab Data [facility] Lab Attestation statement: I reviewed the patient's lab results. 07/26/22 22:41 07/26/22 22:41 Labs: Lab Results 07/26/22 07/26/22 07/26/22 Range/Units 22:41 22:41 22:41 WBC 8.7 (4.8-10.8) X10*3/uL RBC 4.89 (4.20-5.50) X10*6/uL Hgb 14.2 (12.0-16.0) g/dl Hct 41.7 (37.0-47.0) % MCV 85.3 (80.0-98.0) fL MCH 29.0 (27.0-33.0) pg MCHC 34.1 (31.0-35.0) g/dl RDW 12.6 (11.0-16.0) % Plt Count 382 D (160-400) X10*3/uL MPV 9.9 (9.4-12.3) fL Absolute Nucleated RBC 0.000 (0.0-0.012) X10*3/uL Nucleated RBC % (auto) 0.0 (0.0-0.2) /100WBC D-Dimer High Sensitivty NG/ML Sodium 140 (135-145) mmol/L Potassium 4.0 (3.3-5.1) mmol/L Chloride 107 (96-108) mmol/L Carbon Dioxide 23 (22-29) mmol/L Anion Gap 14 (12-20) BUN 9 (9-16) mg/dL Creatinine 0.72 (0.5-1.4) mg/dL Estim Creat Clear Calc 79.1 Estimated GFR > 60 Random Glucose 148 H (60-115) mg/dL Calcium 10.0 D (8.4-10.2) mg/dL Total Bilirubin 0.3 (0.0-1.0) mg/dL AST 21 (5-31) U/L ALT 20 (0-31) U/L Alkaline Phosphatase 69 (39-117) U/L Troponin I High Sens < 2.7 (<3.5-17.0) ng/L Total Protein 7.7 (6.5-8.0) g/dL Albumin 4.5 (3.5-5.0) g/dL Beta HCG, Quant < 2 mIU/mL 07/27/22 07/27/22 Range/Units 02:26 02:26 WBC (4.8-10.8) X10*3/uL RBC (4.20-5.50) X10*6/uL Hgb (12.0-16.0) g/dl Hct (37.0-47.0) % MCV (80.0-98.0) fL MCH (27.0-33.0) pg MCHC (31.0-35.0) g/dl RDW (11.0-16.0) % Plt Count (160-400) X10*3/uL MPV (9.4-12.3) fL Absolute Nucleated RBC (0.0-0.012) X10*3/uL Nucleated RBC % (auto) (0.0-0.2) /100WBC D-Dimer High Sensitivty < 150 NG/ML Sodium (135-145) mmol/L Potassium (3.3-5.1) mmol/L Chloride (96-108) mmol/L Carbon Dioxide (22-29) mmol/L Anion Gap (12-20) BUN (9-16) mg/dL Creatinine (0.5-1.4) mg/dL Estim Creat Clear Calc Estimated GFR Random Glucose (60-115) mg/dL Calcium (8.4-10.2) mg/dL Total Bilirubin (0.0-1.0) mg/dL AST (5-31) U/L ALT (0-31) U/L Alkaline Phosphatase (39-117) U/L Troponin I High Sens < 2.7 (<3.5-17.0) ng/L Total Protein (6.5-8.0) g/dL Albumin (3.5-5.0) g/dL Beta HCG, Quant mIU/mL Independent Interpretation I performed an independent interpretation of an: EKG Interpretation: EKG showed a sinus pattern heart rate is 110 WI QRS QT within normal limits there is nonspecific T-wave flattening noted diffusely Chronic Conditions SVT, asthma, Discharge Plan Discharge Clinical Impression: Chest pain Patient Disposition: Home, Self-Care Instructions: Chest Pain (DC) Prescriptions: No Action levalbuterol tartrate 45 mcg/actuation HFA aerosol inhaler 2 puff PO Q4-6H PRN (Reason: for wheezing) Qty: 15 0RF levalbuterol HCl 1.25 mg/3 mL solution for nebulization 1.25 mg inhalation Q4H PRN (Reason: for wheezing) Qty: 150 0RF clonazepam 1 mg tablet 1 mg PO BID PRN (Reason: Anxiety) divalproex [Depakote ER] 500 mg tablet extended release 24 hr 500 mg PO BID multivitamin Tablet 1 tab PO DAILY ascorbic acid (vitamin C) [Vitamin C] 500 mg Tablet 500 mg PO DAILY metoprolol succinate 25 mg Tablet Extended Release 24 Hr 25 mg PO DAILY Qty: 30 0RF Protocol: Hold for SBP/HR < HOLD for SBP < : 90 HOLD for HR < : 60 zolpidem 10 mg tablet 1 tab PO BEDTIME PRN (Reason: Sleep) prednisone 20 mg tablet 20 mg PO BID Qty: 10 0RF fluticasone propion-salmeterol [Wixela Inhub] 250-50 mcg/dose blister with device 1 inh inhalation BID 30 Days Qty: 60 3RF Referrals: Name,MD Mike [Primary Care Provider] - 07/29/22
[2022-07-27 02:21] VITALS: BP 127/73; PULSE 72; RESP 20; TEMP 36.8; O2SAT 98
[2022-07-27 02:34] LABS: HCG Quantitative < 2 mIU/mL
[2022-07-27 02:41] LABS: D Dimer High Sensitivity < 150 NG/ML
[2022-07-27 02:54] LABS: Troponin-I High Sensitivity < 2.7 ng/L (<3.5-17.0)
== END 2022-07-27 03:08 | disposition home or self-care (01) ==
PROVIDERS: Emergency Provider Emergency Medicine Emergency Medical Services; PCP Internal Medicine Geriatric Medicine
DX: R07.9 Chest pain, unspecified (principal); Z79.899 Other long term (current) drug therapy; Z87.440 Personal history of urinary (tract) infections
CPT/HCPCS: 36415; 71045; 80053; 84484; 84702; 85027; 85379; 93005; 99283; 99285

== ENCOUNTER 2022-08-23 15:32 | Emergency (ER) | payer OTHER, SELFPAY ==
--- NOTE | 2022-08-23 16:00 | ED_ITS ---
HPI - Skin/Abscess/Foreign Bdy General Chief complaint: Allergic Reaction Stated complaint: rash in face Time Seen by Provider: 08/23/22 16:05 History of Present Illness HPI narrative: HPI narrative: Related Data Home Medications sore throat, scratchy throat, cough, SOB Home Medications
--- NOTE | 2022-08-23 16:00 | ED.SKABFB ---
HPI - Skin/Abscess/Foreign Bdy General Chief complaint: Allergic Reaction Stated complaint: rash in face Time Seen by Provider: 08/23/22 16:05 Source: patient, RN notes reviewed and old records reviewed Mode of arrival: ambulatory History of Present Illness HPI narrative: 36 yo F w/PMHx Asthma-COPD overlap syndrome, SVT, Pott's dz, presenting to the ED c/o pruritic rash to face since waking this morning. Admits to taking 12.5 mg of oral Benadryl, and using topical Benadryl cream without relief, believes made symptoms worse. Denies new exposures including lotion/soap, detergent, new medications, known insect bites or travel. Denies throat closing sensation, sore throat, scratchy throat, cough, SOB MD complaint: rash Onset (ago): hour(s) Related Data Home Medications Medication Instructions Recorded Confirmed clonazepam 1 mg tablet 1 mg PO BID PRN Anxiety 12/13/19 05/27/22 divalproex 500 mg tablet,extended 500 mg PO BID 07/10/20 05/27/22 release 24 hr (Depakote ER) zolpidem 10 mg tablet 1 tab PO BEDTIME PRN Sleep 05/24/21 05/27/22 ascorbic acid (vitamin C) 500 mg 500 mg PO DAILY 03/05/22 05/27/22 tablet (Vitamin C) multivitamin 1 tab PO DAILY 03/05/22 05/27/22 Previous Rx's Medication Instructions Recorded metoprolol succinate 25 mg 25 mg PO DAILY #30 tabs 03/08/22 tablet,extended release 24 hr fluticasone 250 mcg-salmeterol 50 1 inh inhalation BID copd 30 days 04/20/22 mcg/dose blistr powdr for #60 ea inhalation (Wixela Inhub) prednisone 20 mg tablet 20 mg PO BID #10 tabs 05/17/22 levalbuterol tartrate 45 2 puff PO Q4-6H PRN for wheezing 06/13/22 mcg/actuation aerosol inhaler #15 ea levalbuterol HCl 1.25 mg/3 mL 1.25 mg (3 mL) inhalation Q4H PRN 08/11/22 solution for nebulization for wheezing #540 mL cetirizine 10 mg capsule (Zyrtec) 10 mg PO DAILY PRN allergy 08/23/22 symptoms #14 caps diphenhydramine HCl 25 mg capsule 25 mg PO TID PRN allergy symptoms 08/23/22 (Benadryl) #14 caps hydrocortisone 1 % topical cream 1 appl topical BID PRN rash 5 days 08/23/22 #28.35 grams Allergies Allergy/AdvReac Type Severity Reaction Status Date / Time magnesium Allergy Unknown Chest Pain Verified 08/23/22 16:00 somatropin [SOMATROPIN] Allergy Unknown UNKNOWN Verified 08/23/22 16:00 amitriptyline [AMITRIPTYLINE] AdvReac Intermediate NAUSEA, Verified 08/23/22 16:00 DIZZINESS albuterol [ALBUTEROL] AdvReac Mild TACHYCARDIA Verified 08/23/22 16:00 esomeprazole [From NEXIUM] AdvReac Mild TACHYCARDIA Verified 08/23/22 16:00 Review of Systems Review of Systems: Constitutional: No Fever, No Chills ENT/Mouth: No Ear Pain, No Nasal Congestion, No Hoarseness, No sore throat, No Rhinorrhea, No Swallowing Difficulty Cardiovascular: No Chest Pain, No SOB Respiratory: No Cough, No Sputum, No Wheezing Gastrointestinal: No Nausea, No Vomiting, No Diarrhea, No Constipation, No Abdominal pain Musculoskeletal: No joint pain, No Myalgias, No Joint Swelling Skin: No Skin Lesions, + rash Neuro: No Weakness, No Numbness, No Paresthesias Yes all other systems are reviewed and are negative Constitutional: Constitutional: Reports as per [facility] Past Medical History Attestation statement: The following information was validated with the patient. Source: old records reviewed Medical History Asthma with COPD with exacerbation Asthma-COPD overlap syndrome Bipolar 1 disorder Carpal tunnel syndrome COPD (chronic obstructive pulmonary disease) COPD exacerbation Diabetes mellitus Family history of COPD (chronic obstructive pulmonary disease) Fibromyalgia History of MRSA infection Inappropriate sinus node tachycardia Inappropriate sinus tachycardia Kidney stones Polycystic ovarian disease Postural orthostatic tachycardia syndrome POTS (postural orthostatic tachycardia syndrome) Schizoaffective disorder Subclinical hyperthyroidism SVT (supraventricular tachycardia) UTI (urinary tract infection) Surgical History History of renal stent History of tubal ligation Hx of abdominoplasty Hx of lithotripsy Tubal ligation status Family History Family History Other COPD (chronic obstructive pulmonary disease) Social History Social History Household Members: Children Housing: Apartment Do you presently have visiting nurse or other home services: No Alcohol intake: never Patient Tobacco Use Status: Never used Tobacco Second Hand Smoke Exposure: No Advance Directives: No Advance Directives Information Provided: No service: No Current occupational status: unemployed Physical Exam Vital Signs: Vital Signs: Last Vital Signs Temp 98.7 F 08/23/22 16:01 Pulse 71 08/23/22 16:01 Resp 16 08/23/22 16:01 BP 127/80 08/23/22 16:01 Pulse Ox 99 08/23/22 16:01 O2 Del Method Room Air 08/23/22 16:01 BMI result Body Mass Index 23.2 Const: General: cooperative, healthy appearing and no acute distress Orientation/consciousness: patient oriented x3 Limitations: no limitations HEENT: Other: +erythematous patch to right nasolabial fold and left chin. No scaling, fluctuance or pointing. Oropharynx WNL, talking in complete sentences, no respiratory distress or stridor Head: Yes normal to inspection and Yes atraumatic Ears: hearing grossly normal bilaterally, external ears normal and mastoids normal General nose exam: Normal external nose present Mouth: Normal oral and palatal mucosa present, tongue normal, no audible dysphonia and no drooling Throat: Yes posterior oropharynx normal, Yes tonsils normal, Yes uvula midline, No uvula laterally displaced and No uvular edema Eyes: General: appearance normal, both eyes and all related structures EOM: EOMs intact bilaterally Neck: Neck: Yes normal visual inspection and Yes no meningeal signs Resp: Effort & Inspection: normal respiratory effort, no respiratory distress, no stridor and not tachypneic Auscultation: clear to auscultation bilaterally Cardio: Rate: regular rate Heart sounds: S1 normal heart sound present and S2 normal heart sound present Skin: Other: No palm or sole or mucous membrane involvement Wounds: no wounds Neuro: General: patient oriented x3, tone normal and no meningeal signs Gait exam (Neuro): Normal gait present Extrem: General: Yes normal to inspection Medical Decision Making Medical Decision Making MDM Narrative: 36 yo F w/PMHx Asthma-COPD overlap syndrome, SVT, Pott's dz, presenting to the ED c/o pruritic rash to face since waking this morning. On exam vital signs stable, NAD, nontoxic appearing, physical exam as noted above. Concern for allergic reaction vs dermatitis. Low suspicion for cellulitis, abscess, SJS/TENS Plan: PO Benadryl, Zyrtec, topical hydrocortisone Results discussed with patient including worrisome signs and symptoms and strict return precautions, and when to return to the emergency department. They verbalized understanding and feel safe for discharge at this time. Differential Diagnosis Differential Diagnoses: The differential diagnosis associated with the presentation includes As above External Record Review External record reviewed: Inpatient record, Office record, Outpatient record, Prior outpatient labs, Prior outpatient radiology, Primary care record and Outside ED record Tests considered The following testing was considered but not selected: As above Discharge Plan Discharge Clinical Impression: Rash Patient Disposition: Home, Self-Care Instructions: Acute Rash (ED) Additional Instructions: Paste take Benadryl as needed for allergic reaction symptoms. Benadryl will make you drowsy, do not drive while taking Benadryl Take Zyrtec during the day this will not make you drowsy Hydrocortisone is a topical steroid cream apply to rash only. Apply as little as possible, topical steroids have the potential to discolored your skin. Avoid excessive application Follow-up with her doctor or Dermatology as needed If he develops shortness of breath, worsening rash, throat closing sensation return to the ED Prescriptions: New Zyrtec 10 mg capsule 10 mg PO DAILY PRN (Reason: allergy symptoms) Qty: 14 0RF diphenhydramine HCl [Benadryl] 25 mg capsule 25 mg PO TID PRN (Reason: allergy symptoms) Qty: 14 0RF hydrocortisone 1 % cream 1 appl topical BID PRN (Reason: rash) 5 Days Qty: 28.35 0RF No Action levalbuterol tartrate 45 mcg/actuation HFA aerosol inhaler 2 puff PO Q4-6H PRN (Reason: for wheezing) Qty: 15 0RF levalbuterol HCl 1.25 mg/3 mL solution for nebulization 1.25 mg inhalation Q4H PRN (Reason: for wheezing) Qty: 540 0RF clonazepam 1 mg tablet 1 mg PO BID PRN (Reason: Anxiety) divalproex [Depakote ER] 500 mg tablet extended release 24 hr 500 mg PO BID multivitamin Tablet 1 tab PO DAILY ascorbic acid (vitamin C) [Vitamin C] 500 mg Tablet 500 mg PO DAILY metoprolol succinate 25 mg Tablet Extended Release 24 Hr 25 mg PO DAILY Qty: 30 0RF Protocol: Hold for SBP/HR < HOLD for SBP < : 90 HOLD for HR < : 60 zolpidem 10 mg tablet 1 tab PO BEDTIME PRN (Reason: Sleep) prednisone 20 mg tablet 20 mg PO BID Qty: 10 0RF fluticasone propion-salmeterol [Wixela Inhub] 250-50 mcg/dose blister with device 1 inh inhalation BID 30 Days Qty: 60 3RF Referrals: Name,MD Mike [Primary Care Provider] - 3 days Discharge Date/Time: 08/23/22 16:23
[2022-08-23 16:01] VITALS: BP 127/80; PULSE 71; RESP 16; TEMP 37.1; O2SAT 99; BMI 23.2
== END 2022-08-23 16:23 | disposition home or self-care (01) ==
LOC: HO.ED 16:17
PROVIDERS: Emergency Provider Emergency Medicine Emergency Medical Services; PCP Internal Medicine Geriatric Medicine
DX: R21 Rash and other nonspecific skin eruption (principal); L29.9 Pruritus, unspecified
CPT/HCPCS: 99283; 99284

== ENCOUNTER 2022-10-05 11:26 | Outpatient (REF) | payer OTHER, SELFPAY ==
[2022-10-05 13:05] LABS: MANUAL DIFF FLAG NO
[2022-10-05 13:19] LABS: Basophils Absolute Auto 0.1 X10*3/uL (0.0-0.2); Basophils Percent Auto 1.1 % (0-2); Eosinophils Absolute Auto 0.3 X10*3/uL (0.0-0.4); Eosinophils Percent Auto 3.6 % (0-4); Hematocrit 42.3 % (37.0-47.0); Imm Gran Abs Auto 0.02 X10*3/uL (0.00-0.03); Imm Gran Pct Auto 0.3 % (0.0-0.4); Lymphocytes Absolute Auto 2.3 X10*3/uL (1.2-4.9); Lymphocytes Percent Auto 28.9 % (20-40); Mean Corpuscular HGB Conc 33.1 g/dl (31.0-35.0); Mean Corpuscular Volume 87.6 fL (80.0-98.0); Mean Platelet Volume 11.1 fL (9.4-12.3); Monocytes Absolute Auto 0.6 X10*3/uL (0.1-1.2); Monocytes Percent Auto 7.4 % (2-11); Neutrophils Absolute Auto 4.7 x10*3/uL (2.0-8.3); Neutrophils Percent Auto 58.7 % (45-73); Platelet Count 359 X10*3/uL (160-400); Red Blood Count 4.83 X10*6/uL (4.20-5.50); Red Cell Distribution Width 12.7 % (11.0-16.0)
[2022-10-05 13:27] LABS: Estimated Average Glucose 97 mg/dL
[2022-10-05 13:49] LABS: Alanine Aminotransferase 13 U/L (0-31); Albumin Level 4.1 g/dL (3.5-5.0); Alkaline Phosphatase 60 U/L (39-117); Anion Gap 10 (12-20); Aspartate Amino Transferase 17 U/L (5-31); Bilirubin Total 0.4 mg/dL (0.0-1.0); Blood Urea Nitrogen 9 mg/dL (9-16); Calcium 9.6 mg/dL (8.4-10.2); Carbon Dioxide 26 mmol/L (22-29); Chloride 107 mmol/L (96-108); Cholesterol 202 mg/dL; Estimated Glomerular Filt Rate > 60; Glucose Random 87 mg/dL (60-115); HDL Cholesterol 48 mg/dL; LDL Cholesterol Calculated 122 mg/dl; Potassium 4.2 mmol/L (3.3-5.1); Sodium 139 mmol/L (135-145); Total Protein 7.4 g/dL (6.5-8.0); Triglycerides 160 mg/dL
[2022-10-05 13:55] LABS: Syphilis Screen Nonreactive (Nonreactive)
[2022-10-05 14:06] LABS: Folate 13.6 ng/mL (> or = 4.0); TSH reflex Free T4 0.91 uIU/mL (0.32-4.0); Vitamin B12 345 pg/mL (200-900); Vitamin D 25-OH Total 20.6 ng/mL (>30)
[2022-10-05 16:39] LABS: Creatinine Urine 211.99 mg/dL; Microalbum/Creatinine Ratio Ur 7.5 ug/mg cr
[2022-10-06 05:20] LABS: ~HepC Num1 0.05 S/CO (0.00-0.79); ~Hepatitis C Antibody Nonreactive (Nonreactive)
[2022-10-06 05:22] LABS: HBc Num1 0.09 S/CO (0.00-0.79); HBsAGNum1 0.49 S/CO (0.00-0.99); HIV AB/AG Nonreactive (Nonreactive); HIV Num 1 0.06 S/CO (0.00-0.99); Hepatitis B Core Antibody Nonreactive (Nonreactive); Hepatitis B Surface Antigen Negative (Negative); ~Hepatitis B Surface Antibody REACTIVE (Nonreactive)
[2022-10-06 09:34] LABS: CT PCR NOT DETECTED (Not Detect.); NG PCR NOT DETECTED (Not Detect.)
[2022-10-11 06:14] LABS: Fructosamine 232 umol/L (205-285)
== END 2022-10-05 11:27 | disposition home or self-care (01) ==
LOC: HO.HHCL 11:26
PROVIDERS: Visit Provider Student in an Organized Health Care Education/Training Program
DX: Z00.00 Encounter for general adult medical examination without abnormal findings (principal); Z20.2 Contact with and (suspected) exposure to infections with a predominantly sexual mode of transmission; Z13.220 Encounter for screening for lipoid disorders; Z13.29 Encounter for screening for other suspected endocrine disorder; E16.2 Hypoglycemia, unspecified
CPT/HCPCS: 0353U; 80053; 80061; 82043; 82306; 82607; 82746; 82985; 83036; 84443; 85025; 86704; 86706; 86780; 86803; 87340; 87389

== ENCOUNTER 2022-10-15 21:40 | Emergency (ER) | payer OTHER, SELFPAY ==
--- NOTE | ~2022-10-15 | XR_ITS ---
EXAMINATION: XR CHEST CLINICAL INFORMATION: Dyspnea. COMPARISON: Chest radiograph 07/27/2022. TECHNIQUE: PA view of the chest was obtained. FINDINGS: No significant abnormality is noted involving the heart, lungs, mediastinum, bony thorax or soft tissues. XR/XR chest 1V IMPRESSION: Unremarkable examination.
[2022-10-15 21:44] VITALS: BP 129/93; PULSE 98; RESP 20; TEMP 36.9; O2SAT 100; BMI 23.6
[2022-10-16 00:14] VITALS: BP 127/79; PULSE 76; RESP 18; TEMP 37.2; O2SAT 100
--- NOTE | 2022-10-16 00:22 | ED.SOB ---
HPI - SOB/Dyspnea General Chief Complaint: Dyspnea Stated Complaint: SOB Time Seen by Provider: 10/16/22 00:08 Source: patient Mode of arrival: ambulatory Limitations: no limitations History of Present Illness HPI Narrative: 37 yo female with history of COPD/asthma, SVT, idiopathic rash here with complaints of fever up to 101F, chills, malaise, shortness of breath since last evening with exposure to COVID recently. No chest pain, leg swelling, leg pain, vomiting, diarrhea, neck pain/stiffness, headache. Of note patient also reports itchy rash to her face which she has had intermittently for quite some time and is waiting to see an quarry plug and feather driller. She takes benadryl PRN for this. Related Data Home Medications Medication Instructions Recorded Confirmed clonazepam 1 mg tablet 1 mg PO BID PRN Anxiety 12/13/19 05/27/22 divalproex 500 mg tablet,extended 500 mg PO BID 07/10/20 05/27/22 release 24 hr (Depakote ER) zolpidem 10 mg tablet 1 tab PO BEDTIME PRN Sleep 05/24/21 05/27/22 ascorbic acid (vitamin C) 500 mg 500 mg PO DAILY 03/05/22 05/27/22 tablet (Vitamin C) multivitamin 1 tab PO DAILY 03/05/22 05/27/22 Previous Rx's Medication Instructions Recorded prednisone 20 mg tablet 20 mg PO BID #10 tabs 05/17/22 levalbuterol tartrate 45 2 puff PO Q4-6H PRN for wheezing 06/13/22 mcg/actuation aerosol inhaler #15 ea levalbuterol HCl 1.25 mg/3 mL 1.25 mg (3 mL) inhalation Q4H PRN 08/11/22 solution for nebulization for wheezing #540 mL cetirizine 10 mg capsule (Zyrtec) 10 mg PO DAILY PRN allergy 08/23/22 symptoms #14 caps diphenhydramine HCl 25 mg capsule 25 mg PO TID PRN allergy symptoms 08/23/22 (Benadryl) #14 caps hydrocortisone 1 % topical cream 1 appl topical BID PRN rash 5 days 08/23/22 #28.35 grams fluticasone 250 mcg-salmeterol 50 1 ea PO BID #60 ea 09/02/22 mcg/dose blistr powdr for inhalation (Wixela Inhub) metoprolol succinate 25 mg 25 mg PO DAILY #30 tabs 09/05/22 tablet,extended release 24 hr prednisone 20 mg tablet 40 mg PO DAILY #8 tabs 10/16/22 Allergies Allergy/AdvReac Type Severity Reaction Status Date / Time magnesium Allergy Unknown Chest Pain Verified 10/15/22 21:49 somatropin [SOMATROPIN] Allergy Unknown UNKNOWN Verified 10/15/22 21:49 amitriptyline [AMITRIPTYLINE] AdvReac Intermediate NAUSEA, Verified 10/15/22 21:49 DIZZINESS albuterol [ALBUTEROL] AdvReac Mild TACHYCARDIA Verified 10/15/22 21:49 esomeprazole [From NEXIUM] AdvReac Mild TACHYCARDIA Verified 10/15/22 21:49 Review of Systems Review of Systems: Yes all other systems are reviewed and are negative Constitutional: Constitutional: Reports no additional constitutional complaints, Denies body ache(s), Reports chills, Reports fever(s), Denies headache(s) and Denies weakness Eyes: Eyes: Reports no additional eye complaints and Denies change in vision ENT: Reports system reviewed and no additional complaints, except as documented, Denies dizziness, Denies headache(s), Denies nasal congestion, Denies nasal discharge and Denies neck pain Cardiovascular: Cardiovascular: Reports no additional cardiovascular complaints, Denies chest pain, Denies leg edema and Reports dyspnea Respiratory: Respiratory: Reports no additional respiratory complaints, Denies cough and Reports dyspnea Gastrointestinal: Gastrointestinal: Reports no additional gastrointestinal complaints, Denies abdominal pain, Denies diarrhea, Denies nausea and Denies vomiting Genitourinary: Genitourinary: Reports no additional female genitourinary complaints and Denies urinary incontinence Musculoskeletal: Musculoskeletal: Reports no additional musculoskeletal complaints, Denies back pain, Denies arthralgias, Denies joint swelling, Denies neck pain, Denies numbness and Denies tingling Integumentary/Breasts: Skin/Breast: Reports system reviewed and no additional complaints, except as docu and Reports rash Neurologic: Reports system reviewed and no additional complaints, except as documented, Denies Abnormal speech present, Denies dizziness, Denies headache(s), Denies numbness, Denies tingling and Denies weakness PMFSH Past Medical History Attestation statement: The following information was validated with the patient. Source: old records reviewed and nursing notes reviewed Medical History Asthma with COPD with exacerbation Asthma-COPD overlap syndrome Bipolar 1 disorder Carpal tunnel syndrome COPD (chronic obstructive pulmonary disease) COPD exacerbation Diabetes mellitus Family history of COPD (chronic obstructive pulmonary disease) Fibromyalgia History of MRSA infection Inappropriate sinus node tachycardia Inappropriate sinus tachycardia Kidney stones Polycystic ovarian disease Postural orthostatic tachycardia syndrome POTS (postural orthostatic tachycardia syndrome) Schizoaffective disorder Subclinical hyperthyroidism SVT (supraventricular tachycardia) UTI (urinary tract infection) Surgical History History of renal stent History of tubal ligation Hx of abdominoplasty Hx of lithotripsy Tubal ligation status Family History Family History Other COPD (chronic obstructive pulmonary disease) Social History Social History Household Members: Children Housing: Apartment Do you presently have visiting nurse or other home services: No Alcohol intake: never Patient Tobacco Use Status: Never used Tobacco Smoked in Last 30 Days: No Second Hand Smoke Exposure: No Use of substances other than those prescribed or required for medical reasons: No Advance Directives: No Advance Directives Information Provided: Yes Patient : No service: No Current occupational status: unemployed Physical Exam Vital Signs: Vital Signs: Last Vital Signs Temp 99.0 F 10/16/22 00:14 Pulse 76 10/16/22 00:14 Resp 18 10/16/22 00:14 BP 127/79 10/16/22 00:14 Pulse Ox 100 10/16/22 00:14 O2 Del Method Room Air 10/16/22 00:14 BMI result Body Mass Index 23.6 Const: General: cooperative, healthy appearing, comfortable and no acute distress Orientation/consciousness: patient oriented x3 Limitations: no limitations HEENT: Head: Yes normal to inspection Head images: 1. +urticarial lesion 2. +urticarial lesion Ears: hearing grossly normal bilaterally and TM's normal bilaterally General nose exam: Normal external nose present Face and sinus: Yes normal facial exam Mouth: Normal oral and palatal mucosa present Throat: Yes posterior oropharynx normal, Yes tonsils normal and Yes uvula midline Eyes: General: appearance normal, both eyes and all related structures Pupils: Equal, round and reactive pupils present Neck: Neck: Yes normal visual inspection, Yes full ROM, Yes no lymphadenopathy and Yes no meningeal signs Chest: Chest palpation & inspection: normal inspection of the chest Resp: Effort & Inspection: normal respiratory effort Auscultation: clear to auscultation bilaterally Cardio: Rate: regular rate Rhythm: regular rhythm Peripheral pulses: Peripheral pulses 2+ throughout GI: Inspection: Yes normal to inspection Palpation (GI): Soft to palpation and nontender Auscultation: normal bowel sounds Back/Spine/Pelvis: Thoracic/Lumbar Spine: thoracic and lumbar spine normal to inspection Skin: General skin exam: no rashes or lesions noted Neuro: General: patient oriented x3, no meningeal signs, no focal motor deficits and normal sensation to monofilament Cranial nerves: Yes Equal, round and reactive pupils present Cognition (Neuro): normal cognition Speech: No Abnormal speech present Gait exam (Neuro): Normal gait present Motor exam (neuro): 5/5 motor strength present throughout Extrem: General: Yes normal to inspection, Yes no pedal edema and Yes no calf tenderness Course Course Course Narrative: COVID and flu testing are negative. Chest x-ray shows no acute finding. Likely viral syndrome. Recommend supportive care at home for the next few days with Motrin and Tylenol as needed. Rashes been ongoing issue for the patient. She has plans to follow-up with the quarry plug and feather driller. It is not a new thing. Will give her a course of prednisone and recommend she continue Benadryl as needed. Reviewed worrisome signs and symptoms of when to return to the emergency room. Comfortable plan for discharge home. Medications Administered Discontinued Medications Generic Name Dose Route Start Last Admin Trade Name Mae PRN Reason Stop Dose Admin Prednisone 60 mg 10/16/22 00:21 10/16/22 00:31 Prednisone 20 Mg Tablet PO 10/16/22 00:22 60 mg ONCE ONE Administration Medical Decision Making Medical Decision Making MDM Narrative: 37 yo female with history of COPD/asthma, SVT, idiopathic rash here with complaints of fever up to 101F, chills, malaise, shortness of breath since last evening with exposure to COVID recently. No chest pain, leg swelling, leg pain, vomiting, diarrhea, neck pain/stiffness, headache.? Of note patient also reports itchy rash to her face which she has had intermittently for quite some time and is waiting to see an quarry plug and feather driller. She takes benadryl PRN for this.? on arrival exam is benign. LS CTA. VSS Will check CXR, covid/flu testing Give oral pred, patient has her own albuterol to use prn in the room Differential Diagnosis Differential Diagnoses: The differential diagnosis associated with the presentation includes viral syndrome, asthma exacerbation, influenza Low concern for PNA, PE (PERC) Allergic reaction-low concern for SJS, TEN, DRESS syndrome Lab Data MDM Lab Attestation statement: I reviewed the patient's lab results. COVID and flu testing are negative Labs: Lab Results 10/16/22 10/16/22 Range/Units 00:30 00:30 COVID-19 (LAKHWINDER) Negative (Negative) COVID-19 Clin Com See Note Influenza Type A (RITESH) Negative (Negative) Influenza Type B (RITESH) Negative (Negative) Influenza A & B Note See Note Independent Interpretation I performed an independent interpretation of an: Plain X-Ray Interpretation: I independetely reviewed the CXR and agree with rad report Radiology Impression Discussion of test interpretation with radiology: I have reviewed the radiologist's reading. Radiologist Impression: [address] [address] XRay Report Signed Patient: Guillermina Townsend MR#: [id number] : 1985 Acct:[id number] Age/Sex: 37 / F ADM Date: 10/15/22 Loc: .ED Attending Dr: Ordering Physician: Generic ED Physician Date of Service: 10/15/22 Procedure(s): XR chest 1V Accession Number(s): [id number] cc: Generic ED Physician~ EXAMINATION: XR CHEST CLINICAL INFORMATION: Dyspnea. COMPARISON: Chest radiograph 07/27/2022. TECHNIQUE: PA view of the chest was obtained. FINDINGS: No significant abnormality is noted involving the heart, lungs, mediastinum, bony thorax or soft tissues. XR/XR chest 1V IMPRESSION: Unremarkable examination. ? Discharge Plan Discharge Clinical Impression: Urticarial rash, Acute viral syndrome Patient Disposition: Home, Self-Care Instructions: Urticaria (ED), Viral Syndrome (ED) Additional Instructions: Continue your inhaler as needed Continue benadryl as needed Start prednisone tomorrow Your COVID and flu testing are negative Your chest x-ray is normal Continue with plan to follow-up with an quarry plug and feather driller Prescriptions: New prednisone 20 mg tablet 40 mg PO DAILY Qty: 8 0RF No Action levalbuterol tartrate 45 mcg/actuation HFA aerosol inhaler 2 puff PO Q4-6H PRN (Reason: for wheezing) Qty: 15 0RF levalbuterol HCl 1.25 mg/3 mL solution for nebulization 1.25 mg inhalation Q4H PRN (Reason: for wheezing) Qty: 540 0RF fluticasone propion-salmeterol [Wixela Inhub] 250-50 mcg/dose blister with device 1 ea PO BID Qty: 60 3RF metoprolol succinate 25 mg tablet extended release 24 hr 25 mg PO DAILY Qty: 30 3RF Protocol: Hold for SBP/HR < HOLD for SBP < : 90 HOLD for HR < : 60 clonazepam 1 mg tablet 1 mg PO BID PRN (Reason: Anxiety) divalproex [Depakote ER] 500 mg tablet extended release 24 hr 500 mg PO BID multivitamin Tablet 1 tab PO DAILY ascorbic acid (vitamin C) [Vitamin C] 500 mg Tablet 500 mg PO DAILY zolpidem 10 mg tablet 1 tab PO BEDTIME PRN (Reason: Sleep) prednisone 20 mg tablet 20 mg PO BID Qty: 10 0RF Zyrtec 10 mg capsule 10 mg PO DAILY PRN (Reason: allergy symptoms) Qty: 14 0RF diphenhydramine HCl [Benadryl] 25 mg capsule 25 mg PO TID PRN (Reason: allergy symptoms) Qty: 14 0RF hydrocortisone 1 % cream 1 appl topical BID PRN (Reason: rash) 5 Days Qty: 28.35 0RF Referrals: Kelly Hanley MD [Primary Care Provider] - 1 week
[2022-10-16] MEDS: predniSONE 20 MG TABLET 60 MG PO (00:31)
--- NOTE | 2022-10-16 00:38 | PC.NURSE ---
Pt A&Ox3, reporting 8/10 uncomfortable pain, pt stated it feels like pressure on chest, and throat feels tight with difficulty swallowing, it feels like there is something stuck in my throat . Reports dizziness, and a fever, with no N/V/D. Pt states she also has a rash on her face that also appeared yesterday. Pt states she has not been around any one sick, expect her niece a week ago.
[2022-10-16 00:59] LABS: IDNOW Serial# BCCEAD1C; Influenza A Negative (Negative); Influenza B2 Negative (Negative)
[2022-10-16 01:00] LABS: COVID-19 Test Negative (Negative); IDNOW Serial# 08D9AD1C
== END 2022-10-16 01:12 | disposition home or self-care (01) ==
PROVIDERS: Nurse Practitioner Family; Emergency Provider Emergency Medicine; PCP Student in an Organized Health Care Education/Training Program
DX: L50.9 Urticaria, unspecified (principal); B34.9 Viral infection, unspecified; J44.9 Chronic obstructive pulmonary disease, unspecified; R50.9 Fever, unspecified; R06.02 Shortness of breath; I47.1 Supraventricular tachycardia; Z79.899 Other long term (current) drug therapy; Z20.822 Contact with and (suspected) exposure to COVID-19; Z23 Encounter for immunization
CPT/HCPCS: 71045; 87502; 87635; 90471; 99284

== ENCOUNTER 2022-11-29 15:46 | Outpatient (REF) | payer OTHER, SELFPAY | END 2022-11-29 15:47 | disposition home or self-care (01) | LOC: HO.LAB 15:46 | PROVIDERS: PCP Student in an Organized Health Care Education/Training Program; Visit Provider Internal Medicine Infectious Disease | DX: Z20.6 Contact with and (suspected) exposure to human immunodeficiency virus [HIV] (principal); N39.0 Urinary tract infection, site not specified | CPT/HCPCS: 36415; 82565; 84450; 84460; 84520; 85025; 86780; 86803; 87040; 87340; 87389 ==

== ENCOUNTER 2023-01-06 15:04 | Emergency (ER) | payer OTHER, SELFPAY ==
--- NOTE | 2023-01-06 | ECG_ITS ---
Test Reason : dyspnea Blood Pressure : / mmHG Vent. Rate : 072 BPM Atrial Rate : 072 BPM P-R Int : 132 ms QRS Dur : 082 ms QT Int : 360 ms P-R-T Axes : 021 048 037 degrees QTc Int : 394 ms Normal sinus rhythm Normal ECG When compared with ECG of 26-JUL-2022 22:30, Vent. rate has decreased BY 39 BPM Referred By: Generic ED Physician Electronically Signed By:EDWARD TENORIO MD
[2023-01-06 15:54] VITALS: BP 155/100; PULSE 145; RESP 18; TEMP 37.3; O2SAT 98; BMI 23.1
--- NOTE | 2023-01-06 15:59 | ED_ITS ---
HPI - General Adult General Chief complaint: General Medical Stated complaint: allergic reaction? septic? sob Time Seen by Provider: 01/06/23 16:21 Source: patient Mode of arrival: ambulatory Limitations: no limitations History of Present Illness HPI narrative: Patient comes to the emergency room complaining of an allergic reaction, possibly to medication. Patient states that approximately 8 hours ago she woke up with a rash in her face, upper body, wheezing, and foreign body sensation in the throat. Patient states that approximately 10 days ago she stopped taking doxycycline for MRSA UTI. Then, patient developed a UTI positive for E coli and has been taking Macrobid for several days. Yesterday, patient took Ambien for sleep and 1 dose of Diflucan. At this time, patient states that she does not have any chest pain or shortness of breath. Related Data Home Medications Medication Instructions Recorded Confirmed clonazepam 1 mg tablet 1 mg PO BID PRN Anxiety 12/13/19 05/27/22 divalproex 500 mg tablet,extended 500 mg PO BID 07/10/20 05/27/22 release 24 hr (Depakote ER) zolpidem 10 mg tablet 1 tab PO BEDTIME PRN Sleep 05/24/21 05/27/22 ascorbic acid (vitamin C) 500 mg 500 mg PO DAILY 03/05/22 05/27/22 tablet (Vitamin C) multivitamin 1 tab PO DAILY 03/05/22 05/27/22 Previous Rx's Medication Instructions Recorded prednisone 20 mg tablet 20 mg PO BID #10 tabs 05/17/22 levalbuterol HCl 1.25 mg/3 mL 1.25 mg (3 mL) inhalation Q4H PRN 08/11/22 solution for nebulization for wheezing #540 mL cetirizine 10 mg capsule (Zyrtec) 10 mg PO DAILY PRN allergy 08/23/22 symptoms #14 caps diphenhydramine HCl 25 mg capsule 25 mg PO TID PRN allergy symptoms 08/23/22 (Benadryl) #14 caps hydrocortisone 1 % topical cream 1 appl topical BID PRN rash 5 days 08/23/22 #28.35 grams fluticasone 250 mcg-salmeterol 50 1 ea PO BID #60 ea 09/02/22 mcg/dose blistr powdr for inhalation (Wixela Inhub) prednisone 20 mg tablet 40 mg (2 x 20 mg) PO DAILY #8 tabs 10/16/22 metoprolol succinate 25 mg 25 mg PO DAILY #30 tabs 12/08/22 tablet,extended release 24 hr levalbuterol tartrate 45 2 puff PO Q4-6H PRN for wheezing 12/27/22 mcg/actuation aerosol inhaler #15 ea Allergies Allergy/AdvReac Type Severity Reaction Status Date / Time magnesium Allergy Unknown Chest Pain Verified 10/15/22 21:49 somatropin [SOMATROPIN] Allergy Unknown UNKNOWN Verified 10/15/22 21:49 amitriptyline [AMITRIPTYLINE] AdvReac Intermediate NAUSEA, Verified 10/15/22 21:49 DIZZINESS albuterol [ALBUTEROL] AdvReac Mild TACHYCARDIA Verified 10/15/22 21:49 esomeprazole [From NEXIUM] AdvReac Mild TACHYCARDIA Verified 10/15/22 21:49 Review of Systems 2 Review of Systems: Constitutional : No Weight loss, No Fever, No Chills, No Night Sweats, No Fatigue, No Malaise ENT/Mouth : No Hearing loss, No Ear Pain, No Nasal Congestion, No Sinus Pain, No Hoarseness, No sore throat, No Rhinorrhea, No Swallowing Difficulty Eyes: No Eye Pain, No Swelling, No Redness, No Foreign Body, No Discharge, No Vision Changes Cardiovascular : No Chest Pain, No SOB, No Dyspnea on Exertion, No Orthopnea, No Edema, No Palpitations Respiratory : No Cough, No Sputum, No Wheezing, No Smoke Exposure, No Dyspnea Gastrointestinal : No Nausea, No Vomiting, No Diarrhea, No Constipation, No abdominal Pain, No Hematochezia, No Melena Genitourinary : no irregular bleeding, No Dysuria, No Urinary Frequency, No Hematuria, No Urinary Incontinence, No Urgency, No Flank Pain, No Urinary Flow Changes, No Hesitancy Musculoskeletal : No joint pain, No Myalgias, No Joint Swelling Skin : Complaining of rash in the face, back, chest Neuro : No Weakness, No Numbness, No Paresthesias, No Loss of Consciousness, No Dizziness, No Headache Psych : No Anxiety/Panic, No Depression, No SI/HI/AH/VH, No Social Issues, Heme/Lymph: No Bruising, No Bleeding,No Lymphadenopathy Endocrine : No Polyuria, No Polydipsia, No Temperature Intolerance [facility] Past Medical History Medical History Asthma with COPD with exacerbation Asthma-COPD overlap syndrome Bipolar 1 disorder Carpal tunnel syndrome COPD (chronic obstructive pulmonary disease) COPD exacerbation Diabetes mellitus Family history of COPD (chronic obstructive pulmonary disease) Fibromyalgia History of MRSA infection Inappropriate sinus node tachycardia Inappropriate sinus tachycardia Kidney stones Polycystic ovarian disease Postural orthostatic tachycardia syndrome POTS (postural orthostatic tachycardia syndrome) Schizoaffective disorder Subclinical hyperthyroidism SVT (supraventricular tachycardia) UTI (urinary tract infection) Surgical History History of renal stent History of tubal ligation Hx of abdominoplasty Hx of lithotripsy Tubal ligation status Family History Family History Other COPD (chronic obstructive pulmonary disease) Social History Social History Household Members: Children Housing: Apartment Do you presently have visiting nurse or other home services: No Alcohol intake: never Patient Tobacco Use Status: Never used Tobacco Smoked in Last 30 Days: No Second Hand Smoke Exposure: No Use of substances other than those prescribed or required for medical reasons: No Advance Directives: No Advance Directives Information Provided: Yes service: No Current occupational status: unemployed Physical Exam ED Vital Signs: Vital Signs - 24 hr 01/06/23 15:54 01/06/23 16:10 01/06/23 16:32 Temperature 99.1 F Pulse Rate 145 H 140 H 88 Respiratory Rate 18 22 H 22 H Blood Pressure 155/100 H Pulse Oximetry 98 95 Oxygen Delivery Method Room Air Room Air BMI result Body Mass Index 23.1 Const Other: Appearance: Alert. Oriented X3. No acute distress. Eyes: Pupils equal, round and reactive to light. ENT: Pharynx normal. Neck: Normal inspection. Neck supple. No lymph nodes noted. No crepitus CVS: Normal heart rate and rhythm. Pulses normal. Normal S1 and S2 Respiratory: No respiratory distress. Breath sounds normal. No Wheezing. No rales Abdomen: Soft and nontender. No rigidity. No distention. Skin: Skin warm and dry. Rash on top of the lips, hives rash on the back and abdomen and chest Extremities: No lower extremity edema. No Lacerations. No Rash Neuro: Oriented X 3. No motor deficit. No sensory deficit. Moving all extremities. No slurred speech. CN 2 through 12 grossly intact Psych: calm, cooperative, normal affect Course Course Course Narrative: This is an RME: Additional HPI, ROS, PE not included below will be deferred to primary provider. This is a [id number]-female, history of SVT presenting to the emergency department with complaints of shortness of breath, swollen face, rash, nausea since this morning. She has had MRSA UTI and was started on doxycycline. She had a repeat urinalysis which showed E coli. She takes Macrobid every day due to history of bacteremia due to UTIs. Inspiratory-expiratory wheezing heard throughout. Feeling as though her throat is swollen. Tachycardia in the 140s Plan: EKG, labs, UA Medications Administered Discontinued Medications Generic Name Dose Route Start Last Admin Trade Name Freq PRN Reason Stop Dose Admin Diphenhydramine HCl 50 mg 01/06/23 16:28 01/06/23 16:52 Diphenhydramine Hcl 50 Mg/Ml Vial IVPUSH 01/06/23 16:29 50 mg ONCE ONE Administration Famotidine 20 mg 01/06/23 16:28 01/06/23 16:52 Famotidine/Pf 20 Mg/2 Ml Vial IVPUSH 01/06/23 16:29 20 mg ONCE ONE Administration Sodium Chloride 1,000 mls @ 999 mls/hr 01/06/23 16:28 01/06/23 19:35 Ns IVCONT 01/06/23 17:28 Infused .Q1H1M ONE Infusion Ipratropium [place] 0.5 mg 01/06/23 16:31 01/06/23 16:32 Ipratropium [place] 0.5 Mg/2.5 Ml Solution INHALE 01/06/23 16:32 0.5 mg ONCE ONE Administration Methylprednisolone Sodium Succinate 125 mg 01/06/23 16:28 01/06/23 16:52 Methylprednisolone Sod Succ 125 Mg/2 Ml Vial IVPUSH 01/06/23 16:29 125 mg ONCE ONE Administration Medical Decision Making Medical Decision Making [facility] Narrative: -patient receiving IV fluids, IV Benadryl, Pepcid, Solu-Medrol, ipratropium neb -after the above-mentioned treatment, patient is feeling better, no wheezing, feeling better. Patient has mild erythema in the upper lip. No swelling -my disposition of labs: Hematology and chemistry within normal limits, urinalysis negative for UTI. Discussed with patient that urine culture steak days to come back. Patient instructed to call tomorrow her infectious disease doctor at [facility] to ask if patient should continue Macrobid and for how long. -also, discussed with the patient to talk with her primary care physician to possibly help her arrange an appointment with immunology for a scan scratch test, since patient has had multiple allergic reactions to unknown allergens Differential Diagnosis Differential Diagnoses: The differential diagnosis associated with the presentation includes (Allergic reaction, hypersensitivity reaction) Admission/Observation Consideration of admission/observation: Escalation of care including admission/observation considered (Given patient's initial presentation, admission was considered) Lab Data MDM Lab Attestation statement: I reviewed the patient's lab results. 01/06/23 16:42 01/06/23 16:42 Labs: Lab Results 01/06/23 01/06/23 Range/Units 16:42 18:54 WBC 9.4 (4.8-10.8) X10*3/uL RBC 4.81 (4.20-5.50) X10*6/uL Hgb 14.1 (12.0-16.0) g/dl Hct 41.3 (37.0-47.0) % MCV 85.9 (80.0-98.0) fL MCH 29.3 (27.0-33.0) pg MCHC 34.1 (31.0-35.0) g/dl RDW 12.8 (11.0-16.0) % Plt Count 342 (160-400) X10*3/uL MPV 10.6 (9.4-12.3) fL Immature Gran % (Auto) 0.3 (0.0-0.4) % Neut % (Auto) 63.9 (45-73) % Lymph % (Auto) 24.8 (20-40) % [place] % (Auto) 7.6 (2-11) % Eos % (Auto) 2.4 (0-4) % Baso % (Auto) 1.0 (0-2) % Lymph # (Auto) 2.3 (1.2-4.9) X10*3/uL [place] # (Auto) 0.7 (0.1-1.2) X10*3/uL Eos # (Auto) 0.2 (0.0-0.4) X10*3/uL Baso # (Auto) 0.1 (0.0-0.2) X10*3/uL Abs Immat Gran (auto) 0.03 (0.00-0.03) X10*3/uL Absolute Neuts (auto) 6.0 (2.0-8.3) x10*3/uL Absolute Nucleated RBC 0.000 (0.0-0.012) X10*3/uL Nucleated RBC % (auto) 0.0 (0.0-0.2) /100WBC Sodium 138 (135-145) mmol/L Potassium 4.7 (3.3-5.1) mmol/L Chloride 106 (96-108) mmol/L Carbon Dioxide 26 (22-29) mmol/L Anion Gap 11 L (12-20) BUN 10 (9-16) mg/dL Creatinine 0.73 (0.5-1.4) mg/dL Estim Creat Clear Calc 77.2 Estimated GFR > 60 Random Glucose 79 (60-115) mg/dL Calcium 10.1 (8.4-10.2) mg/dL Urine Color Yellow Urine Appearance Clear Urine pH 6.0 (5.0-9.0) Ur Specific [place] 1.010 (1.005-1.025) Urine Protein Negative (Neg-Trace) mg/dL Urine Glucose (UA) Negative (Negative) mg/dL Urine Ketones Negative (Negative) mg/dL Urine Blood Negative (Negative) Urine Nitrite Negative (Negative) Ur Leukocyte Esterase Negative (Negative) Critical Care Time Critical Care Time Critical Care Time: Yes Total Critical Care Time: 45 Attestation: I have personally provided critical care time. Time includes review of lab data, radiology results, discussion with consultants, and monitoring for potential decompensation. Intervention performed as documented. Discharge Plan Discharge Clinical Impression: Allergic reaction Patient Disposition: Home, Self-Care Instructions: Allergy Testing (ED), General Allergic Reaction (ED) Additional Instructions: Please discussed with the primary care physician being referred to immunology for a scan scratch test. Also, please discuss with your infectious disease doctor that your urinalysis was negative for UTI. Please ask if you should continue taking Macrobid. Please follow-up with your primary care physician tomorrow. If you have any worsening or new symptoms, please return to the emergency room or call 911 Prescriptions: No Action levalbuterol HCl 1.25 mg/3 mL solution for nebulization 1.25 mg inhalation Q4H PRN (Reason: for wheezing) Qty: 540 0RF fluticasone propion-salmeterol [Wixela Inhub] 250-50 mcg/dose blister with device 1 ea PO BID Qty: 60 3RF metoprolol succinate 25 mg tablet extended release 24 hr 25 mg PO DAILY Qty: 30 5RF Protocol: Hold for SBP/HR < HOLD for SBP < : 90 HOLD for HR < : 60 levalbuterol tartrate 45 mcg/actuation HFA aerosol inhaler 2 puff PO Q4-6H PRN (Reason: for wheezing) Qty: 15 0RF clonazepam 1 mg tablet 1 mg PO BID PRN (Reason: Anxiety) divalproex [Depakote ER] 500 mg tablet extended release 24 hr 500 mg PO BID multivitamin Tablet 1 tab PO DAILY ascorbic acid (vitamin C) [Vitamin C] 500 mg Tablet 500 mg PO DAILY zolpidem 10 mg tablet 1 tab PO BEDTIME PRN (Reason: Sleep) prednisone 20 mg tablet 20 mg PO BID Qty: 10 0RF prednisone 20 mg tablet 40 mg PO DAILY Qty: 8 0RF Zyrtec 10 mg capsule 10 mg PO DAILY PRN (Reason: allergy symptoms) Qty: 14 0RF diphenhydramine HCl [Benadryl] 25 mg capsule 25 mg PO TID PRN (Reason: allergy symptoms) Qty: 14 0RF hydrocortisone 1 % cream 1 appl topical BID PRN (Reason: rash) 5 Days Qty: 28.35 0RF
[2023-01-06 16:10] VITALS: PULSE 140; RESP 22; O2SAT 95
[2023-01-06 16:32] VITALS: PULSE 88; RESP 22; O2SAT 99
[2023-01-06] MEDS: Ipratropium Bromide 0.5 MG/2.5 ML SOLUTION INHALE (16:32)
[2023-01-06] MEDS: diphenhydrAMINE HCL 50 MG/ML VIAL IVPUSH (16:52)
[2023-01-06] MEDS: 0.9 % Sodium Chloride 1,000 ML 999 ML IVCONT (16:52)
[2023-01-06] MEDS: Famotidine/PF 20 MG/2 ML VIAL IVPUSH (16:52)
[2023-01-06] MEDS: methylPREDNISolone Sod Succ 125 MG/2 ML VIAL IVPUSH (16:52)
[2023-01-06 16:54] LABS: Basophils Absolute Auto 0.1 X10*3/uL (0.0-0.2); Eosinophils Absolute Auto 0.2 X10*3/uL (0.0-0.4); Eosinophils Percent Auto 2.4 % (0-4); Hematocrit 41.3 % (37.0-47.0); Hemoglobin 14.1 g/dl (12.0-16.0); Imm Gran Abs Auto 0.03 X10*3/uL (0.00-0.03); Imm Gran Pct Auto 0.3 % (0.0-0.4); Lymphocytes Absolute Auto 2.3 X10*3/uL (1.2-4.9); Lymphocytes Percent Auto 24.8 % (20-40); Mean Corpuscular HGB Conc 34.1 g/dl (31.0-35.0); Mean Corpuscular Hemoglobin 29.3 pg (27.0-33.0); Mean Corpuscular Volume 85.9 fL (80.0-98.0); Mean Platelet Volume 10.6 fL (9.4-12.3); Monocytes Absolute Auto 0.7 X10*3/uL (0.1-1.2); Monocytes Percent Auto 7.6 % (2-11); Neutrophils Percent Auto 63.9 % (45-73); Platelet Count 342 X10*3/uL (160-400); Red Blood Count 4.81 X10*6/uL (4.20-5.50); Red Cell Distribution Width 12.8 % (11.0-16.0); White Blood Count 9.4 X10*3/uL (4.8-10.8)
[2023-01-06 16:56] LABS: MANUAL DIFF FLAG NO
[2023-01-06 17:03] LABS: Anion Gap 11 (12-20); Blood Urea Nitrogen 10 mg/dL (9-16); Calcium 10.1 mg/dL (8.4-10.2); Carbon Dioxide 26 mmol/L (22-29); Chloride 106 mmol/L (96-108); Creatinine Clr Calc Pharmacy 77.2; Estimated Glomerular Filt Rate > 60; Glucose Random 79 mg/dL (60-115); Potassium 4.7 mmol/L (3.3-5.1); Sodium 138 mmol/L (135-145)
--- NOTE | 2023-01-06 19:00 | PC.NURSE ---
assumed care of pt
[2023-01-06 19:12] LABS: Appearance Urine Clear; Color Urine Yellow; Glucose Urine UA Negative (Negative); Leukocyte Esterase Urine Negative (Negative); Nitrite Urine Negative (Negative); Urine Blood Negative (Negative); Urine Ketones Negative (Negative); Urine Protein Negative (Neg-Trace)
[2023-01-06 20:35] VITALS: PULSE 73; RESP 17; O2SAT 97
== END 2023-01-06 20:43 | disposition home or self-care (01) ==
PROVIDERS: Emergency Provider Emergency Medicine; PCP Student in an Organized Health Care Education/Training Program
DX: R09.A2 Foreign body sensation, throat (principal); T36.4X5A Adverse effect of tetracyclines, initial encounter; Y92.9 Unspecified place or not applicable; R06.02 Shortness of breath; R11.2 Nausea with vomiting, unspecified; L50.0 Allergic urticaria; R00.0 Tachycardia, unspecified; Z79.899 Other long term (current) drug therapy
CPT/HCPCS: 36415; 80048; 81003; 85025; 93005; 94640; 96361; 96374; 96375; 99284; 99285; J1200; J2930

== ENCOUNTER 2023-01-08 22:04 | Emergency (ER) | payer OTHER, SELFPAY ==
--- NOTE | 2023-01-08 | ECG_ITS ---
Test Reason : CHEST PAIN Blood Pressure : / mmHG Vent. Rate : 072 BPM Atrial Rate : 072 BPM P-R Int : 122 ms QRS Dur : 084 ms QT Int : 384 ms P-R-T Axes : 033 062 059 degrees QTc Int : 420 ms Normal sinus rhythm Normal ECG When compared with ECG of 06-JAN-2023 16:46, No significant change was found Referred By: Generic ED Physician Electronically Signed By:EDWARD TENORIO MD
--- NOTE | ~2023-01-08 | XR_ITS ---
EXAMINATION: XR CHEST CLINICAL INFORMATION: Chest pain and shortness of breath COMPARISON: 10/15/2022 TECHNIQUE: Frontal view of the chest was obtained. FINDINGS: No significant abnormality is noted involving the heart, lungs, mediastinum, bony thorax or soft tissues. XR/XR chest 1V IMPRESSION: Unremarkable examination.
[2023-01-08 22:05] VITALS: BP 136/85; PULSE 77; RESP 18; TEMP 37.1; O2SAT 99; BMI 23.0
[2023-01-08 22:39] LABS: MANUAL DIFF FLAG NO
[2023-01-08 22:40] LABS: Basophils Percent Auto 0.1 % (0-2); Hematocrit 38.6 % (37.0-47.0); Hemoglobin 12.9 g/dl (12.0-16.0); Imm Gran Abs Auto 0.06 X10*3/uL (0.00-0.03); Imm Gran Pct Auto 0.4 % (0.0-0.4); Lymphocytes Absolute Auto 1.3 X10*3/uL (1.2-4.9); Lymphocytes Percent Auto 8.1 % (20-40); Mean Corpuscular HGB Conc 33.4 g/dl (31.0-35.0); Mean Corpuscular Hemoglobin 28.8 pg (27.0-33.0); Mean Corpuscular Volume 86.2 fL (80.0-98.0); Mean Platelet Volume 10.6 fL (9.4-12.3); Monocytes Absolute Auto 0.8 X10*3/uL (0.1-1.2); Monocytes Percent Auto 5.1 % (2-11); Neutrophils Absolute Auto 14.2 x10*3/uL (2.0-8.3); Neutrophils Percent Auto 86.3 % (45-73); Platelet Count 353 X10*3/uL (160-400); Red Blood Count 4.48 X10*6/uL (4.20-5.50); Red Cell Distribution Width 13.1 % (11.0-16.0); White Blood Count 16.5 X10*3/uL (4.8-10.8)
[2023-01-08 22:49] LABS: IDNOW Serial# 08D9AD1C; Strep A Nucleic Acid Negative (Negative)
[2023-01-08 22:54] LABS: Alanine Aminotransferase 19 U/L (0-31); Albumin Level 4.5 g/dL (3.5-5.0); Alkaline Phosphatase 58 U/L (39-117); Anion Gap 13 (12-20); Aspartate Amino Transferase 16 U/L (5-31); Bilirubin Total 0.2 mg/dL (0.0-1.0); Blood Urea Nitrogen 13 mg/dL (9-16); Calcium 10.1 mg/dL (8.4-10.2); Carbon Dioxide 25 mmol/L (22-29); Chloride 106 mmol/L (96-108); Creatinine Clr Calc Pharmacy 72.3; Estimated Glomerular Filt Rate > 60; Glucose Random 108 mg/dL (60-115); Potassium 3.8 mmol/L (3.3-5.1); Sodium 140 mmol/L (135-145); Total Protein 7.8 g/dL (6.5-8.0)
[2023-01-08 23:03] LABS: Influenza A PCR NEGATIVE (Negative); Influenza B PCR NEGATIVE (Negative); Resp Syncy Virus RNA Qual PCR NEGATIVE (Negative); SARS COV2 PCR INHOUSE NEGATIVE (Negative)
[2023-01-09 00:03] VITALS: BP 122/82; PULSE 68; RESP 17; TEMP 36.6; O2SAT 97
--- NOTE | 2023-01-09 01:05 | ED.GENADULT ---
HPI - General Adult General Chief complaint: Upper Respiratory Symptoms Stated complaint: Rash/trouble swallowing Time Seen by Provider: 01/09/23 00:49 Source: patient, RN notes reviewed and old records reviewed Mode of arrival: ambulatory Limitations: no limitations History of Present Illness HPI narrative: 37-year-old female presents for evaluation of ?an allergic reaction. ? 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 at [facility] Patient states that she is currently taking Zyrtec 20 mg daily, prednisone 20 mg daily and Benadryl 25 mg once today She reports that she woke up with swelling around her eyes and she feels that she is having itching around her mouth and face She states that it feels like it is difficult to swallow but she is able to swallow Denies any trouble breathing She is managed her secretions without difficulty Denies any chest pain She has no rash to any other part of her body Related Data Home Medications Medication Instructions Recorded Confirmed clonazepam 1 mg tablet 1 mg PO BID PRN Anxiety 12/13/19 05/27/22 divalproex 500 mg tablet,extended 500 mg PO BID 07/10/20 05/27/22 release 24 hr (Depakote ER) zolpidem 10 mg tablet 1 tab PO BEDTIME PRN Sleep 05/24/21 05/27/22 ascorbic acid (vitamin C) 500 mg 500 mg PO DAILY 03/05/22 05/27/22 tablet (Vitamin C) multivitamin 1 tab PO DAILY 03/05/22 05/27/22 Previous Rx's Medication Instructions Recorded prednisone 20 mg tablet 20 mg PO BID #10 tabs 05/17/22 levalbuterol HCl 1.25 mg/3 mL 1.25 mg (3 mL) inhalation Q4H PRN 08/11/22 solution for nebulization for wheezing #540 mL cetirizine 10 mg capsule (Zyrtec) 10 mg PO DAILY PRN allergy 08/23/22 symptoms #14 caps diphenhydramine HCl 25 mg capsule 25 mg PO TID PRN allergy symptoms 08/23/22 (Benadryl) #14 caps hydrocortisone 1 % topical cream 1 appl topical BID PRN rash 5 days 08/23/22 #28.35 grams fluticasone 250 mcg-salmeterol 50 1 ea PO BID #60 ea 09/02/22 mcg/dose blistr powdr for inhalation (Wixela Inhub) prednisone 20 mg tablet 40 mg (2 x 20 mg) PO DAILY #8 tabs 10/16/22 metoprolol succinate 25 mg 25 mg PO DAILY #30 tabs 12/08/22 tablet,extended release 24 hr levalbuterol tartrate 45 2 puff PO Q4-6H PRN for wheezing 12/27/22 mcg/actuation aerosol inhaler #15 ea prednisone 20 mg tablet 40 mg (2 x 20 mg) PO DAILY #10 tabs 01/09/23 Allergies Allergy/AdvReac Type Severity Reaction Status Date / Time magnesium Allergy Unknown Chest Pain Verified 01/08/23 22:16 somatropin [SOMATROPIN] Allergy Unknown UNKNOWN Verified 01/08/23 22:16 amitriptyline [AMITRIPTYLINE] AdvReac Intermediate NAUSEA, Verified 01/08/23 22:16 DIZZINESS albuterol [ALBUTEROL] AdvReac Mild TACHYCARDIA Verified 01/08/23 22:16 esomeprazole [From NEXIUM] AdvReac Mild TACHYCARDIA Verified 01/08/23 22:16 Review of Systems Constitutional: Constitutional: Denies chills, Denies fatigue, Denies fever(s) and Denies headache(s) ENT: Denies headache(s) and Reports sore throat Cardiovascular: Cardiovascular: Denies chest pain and Denies dyspnea Respiratory: Respiratory: Denies dyspnea Gastrointestinal: Gastrointestinal: Denies abdominal pain, Denies nausea and Denies vomiting Musculoskeletal: Musculoskeletal: Denies back pain Integumentary/Breasts: Skin/Breast: Reports swelling (around lips and eyes) and Reports pruritus Neurologic: Denies headache(s) Endocrine: Endocrine: Denies fatigue PMFSH Past Medical History Medical History Asthma with COPD with exacerbation Asthma-COPD overlap syndrome Bipolar 1 disorder Carpal tunnel syndrome COPD (chronic obstructive pulmonary disease) COPD exacerbation Diabetes mellitus Family history of COPD (chronic obstructive pulmonary disease) Fibromyalgia History of MRSA infection Inappropriate sinus node tachycardia Inappropriate sinus tachycardia Kidney stones Polycystic ovarian disease Postural orthostatic tachycardia syndrome POTS (postural orthostatic tachycardia syndrome) Schizoaffective disorder Subclinical hyperthyroidism SVT (supraventricular tachycardia) UTI (urinary tract infection) Surgical History History of renal stent History of tubal ligation Hx of abdominoplasty Hx of lithotripsy Tubal ligation status Family History Family History Other COPD (chronic obstructive pulmonary disease) Social History Social History Household Members: Children Housing: Apartment Do you presently have visiting nurse or other home services: No Alcohol intake: never Patient Tobacco Use Status: Never used Tobacco Smoked in Last 30 Days: No Second Hand Smoke Exposure: No Use of substances other than those prescribed or required for medical reasons: No Advance Directives: No Advance Directives Information Provided: No Patient : No service: No Current occupational status: unemployed Physical Exam ED Vital Signs: Vital Signs - 24 hr 01/08/23 22:05 01/09/23 00:03 01/09/23 01:56 Temperature 98.8 F 97.9 F 98.2 F Pulse Rate 77 68 65 Respiratory Rate 18 17 18 Blood Pressure 136/85 122/82 140/84 H Pulse Oximetry 99 97 98 Oxygen Delivery Method Room Air Room Air Room Air BMI result Body Mass Index 23.0 Const General: healthy appearing, comfortable, no acute distress, alert and awake Nutritional Appearance: well nourished Orientation/consciousness: patient oriented x3 HENMT Other: Patient has a small erythematous lesion to the corner of the right upper lip. There is no significant perioral, oral or retropharyngeal edema. No facial urticaria Head: Yes normocephalic and Yes atraumatic Throat: Yes posterior oropharynx normal Eyes Eyelids: Yes eyelids normal Conjunctivae: conjunctivae normal Sclerae: sclerae normal Corneas: corneas normal Pupils: Equal, round and reactive pupils present EOM: EOMs intact bilaterally Neck Neck: Yes full ROM Resp Other: No audible stridor on auscultation of the trachea and lungs bilaterally Effort & Inspection: normal respiratory effort, able to speak in complete sentences, no audible wheezes and not labored Auscultation: clear to auscultation bilaterally Cardio Rate: regular rate Rhythm: regular rhythm GI Inspection: No distended Palpation (GI): Soft to palpation, not firm, nontender, no guarding and not rigid Auscultation: normoactive bowel sounds Skin Other: No urticaria General skin exam: elasticity normal Neuro General: patient oriented x3 Cranial nerves: Yes Equal, round and reactive pupils present and Yes Bilaterally intact EOM present Cognition (Neuro): normal cognition Extrem Other: Moving all extremities well without any obvious deformities Course Reevaluation(s) Reevaluation #1: Patient re-evaluated, she reports feeling better and still has no signs of edema or back area. She is stable for discharge Time: 02:01 Medications Administered Discontinued Medications Generic Name Dose Route Start Last Admin Trade Name Freq PRN Reason Stop Dose Admin Diphenhydramine HCl 25 mg 01/09/23 01:03 01/09/23 01:29 Diphenhydramine Hcl 50 Mg/Ml Vial IVPUSH 01/09/23 01:04 25 mg ONCE ONE Administration Famotidine 20 mg 01/09/23 01:03 01/09/23 01:29 Famotidine/Pf 20 Mg/2 Ml Vial IVPUSH 01/09/23 01:04 20 mg ONCE ONE Administration Methylprednisolone Sodium Succinate 125 mg 01/09/23 01:03 01/09/23 01:30 Methylprednisolone Sod Succ 125 Mg/2 Ml Vial IVPUSH 01/09/23 01:04 125 mg ONCE ONE Administration Medical Decision Making Medical Decision Making [facility] Narrative: 37-year-old female presents for evaluation of a self-reported ?allergic reaction. ? On exam, she has no objective findings of edema, urticaria or anaphylaxis. There may be a component of anxiety to her symptoms. Given that she is reporting itching and a tightness sensation in his throat will give her Benadryl, Solu-Medrol and Pepcid. Her labs are significant for a leukocytosis of 16.5 with a left shift which is likely related to the prednisone that she is already on. Patient has no other lab abnormalities Differential Diagnosis Differential Diagnoses: The differential diagnosis associated with the presentation includes Anxiety Allergic reaction Urticaria Anaphylaxis less likely Lab Data [facility] Lab Attestation statement: I reviewed the patient's lab results. 16.5 K with a left shift. No anemia. No significant electrolyte abnormalities 01/08/23 22:33 01/08/23 22:33 Labs: Lab Results 01/08/23 01/08/23 Range/Units 22:19 22:33 WBC 16.5 H (4.8-10.8) X10*3/uL RBC 4.48 (4.20-5.50) X10*6/uL Hgb 12.9 (12.0-16.0) g/dl Hct 38.6 (37.0-47.0) % MCV 86.2 (80.0-98.0) fL MCH 28.8 (27.0-33.0) pg MCHC 33.4 (31.0-35.0) g/dl RDW 13.1 (11.0-16.0) % Plt Count 353 (160-400) X10*3/uL MPV 10.6 (9.4-12.3) fL Immature Gran % (Auto) 0.4 (0.0-0.4) % Neut % (Auto) 86.3 H (45-73) % Lymph % (Auto) 8.1 L (20-40) % Barber % (Auto) 5.1 (2-11) % Eos % (Auto) 0.0 (0-4) % Baso % (Auto) 0.1 (0-2) % Lymph # (Auto) 1.3 (1.2-4.9) X10*3/uL Barber # (Auto) 0.8 (0.1-1.2) X10*3/uL Eos # (Auto) 0.0 (0.0-0.4) X10*3/uL Baso # (Auto) 0.0 (0.0-0.2) X10*3/uL Abs Immat Gran (auto) 0.06 H (0.00-0.03) X10*3/uL Absolute Neuts (auto) 14.2 H (2.0-8.3) x10*3/uL Absolute Nucleated RBC 0.000 (0.0-0.012) X10*3/uL Nucleated RBC % (auto) 0.0 (0.0-0.2) /100WBC Sodium 140 (135-145) mmol/L Potassium 3.8 (3.3-5.1) mmol/L Chloride 106 (96-108) mmol/L Carbon Dioxide 25 (22-29) mmol/L Anion Gap 13 (12-20) BUN 13 (9-16) mg/dL Creatinine 0.78 (0.5-1.4) mg/dL Estim Creat Clear Calc 72.3 Estimated GFR > 60 Random Glucose 108 (60-115) mg/dL Calcium 10.1 (8.4-10.2) mg/dL Total Bilirubin 0.2 (0.0-1.0) mg/dL AST 16 (5-31) U/L ALT 19 (0-31) U/L Alkaline Phosphatase 58 (39-117) U/L Total Protein 7.8 (6.5-8.0) g/dL Albumin 4.5 (3.5-5.0) g/dL Influenza Type A (PCR) NEGATIVE (Negative) Influenza Type B (PCR) NEGATIVE (Negative) RSV RNA Qual (PCR) NEGATIVE (Negative) SARS-CoV-2 RNA (RT-PCR) NEGATIVE (Negative) S. pyogenes GrpA RITESH Negative (Negative) Discharge Plan Discharge Clinical Impression: Allergic reaction Patient Disposition: Home, Self-Care Instructions: General Allergic Reaction (ED) Additional Instructions: Follow-up with you mass as planned. Take Benadryl up to 50 mg every 6 hours for itching and rash. Continue taking your Zyrtec Take prednisone 40 mg daily for the next 5 days Return for new or worsening symptoms Prescriptions: New prednisone 20 mg tablet 40 mg PO DAILY Qty: 10 0RF No Action levalbuterol HCl 1.25 mg/3 mL solution for nebulization 1.25 mg inhalation Q4H PRN (Reason: for wheezing) Qty: 540 0RF fluticasone propion-salmeterol [Wixela Inhub] 250-50 mcg/dose blister with device 1 ea PO BID Qty: 60 3RF metoprolol succinate 25 mg tablet extended release 24 hr 25 mg PO DAILY Qty: 30 5RF Protocol: Hold for SBP/HR < HOLD for SBP < : 90 HOLD for HR < : 60 levalbuterol tartrate 45 mcg/actuation HFA aerosol inhaler 2 puff PO Q4-6H PRN (Reason: for wheezing) Qty: 15 0RF clonazepam 1 mg tablet 1 mg PO BID PRN (Reason: Anxiety) divalproex [Depakote ER] 500 mg tablet extended release 24 hr 500 mg PO BID multivitamin Tablet 1 tab PO DAILY ascorbic acid (vitamin C) [Vitamin C] 500 mg Tablet 500 mg PO DAILY zolpidem 10 mg tablet 1 tab PO BEDTIME PRN (Reason: Sleep) prednisone 20 mg tablet 20 mg PO BID Qty: 10 0RF prednisone 20 mg tablet 40 mg PO DAILY Qty: 8 0RF Zyrtec 10 mg capsule 10 mg PO DAILY PRN (Reason: allergy symptoms) Qty: 14 0RF diphenhydramine HCl [Benadryl] 25 mg capsule 25 mg PO TID PRN (Reason: allergy symptoms) Qty: 14 0RF hydrocortisone 1 % cream 1 appl topical BID PRN (Reason: rash) 5 Days Qty: 28.35 0RF
[2023-01-09] MEDS: Famotidine/PF 20 MG/2 ML VIAL IVPUSH (01:29)
[2023-01-09] MEDS: diphenhydrAMINE HCL 50 MG/ML VIAL 25 MG IVPUSH (01:29)
[2023-01-09] MEDS: methylPREDNISolone Sod Succ 125 MG/2 ML VIAL IVPUSH (01:30)
--- NOTE | 2023-01-09 01:38 | PC.NURSE ---
Iv placed and medicated per Apr, Notified JUAN Parker
--- NOTE | 2023-01-09 01:45 | PC.NURSE ---
pt a&ox4, respirations even and unlabored. pt reports allergy type symptoms with red itchy swollen eyes, tight throat but still able to swallow and rash on the pt face. pt report being treated for similar symptoms previously. pt noted to have small patches of rash on face, reports of no rash on the rest of body. pt denies chest pain and sob.
[2023-01-09 01:56] VITALS: BP 140/84; PULSE 65; RESP 18; TEMP 36.8; O2SAT 98
--- NOTE | 2023-01-09 01:58 | MHC.EDTECH ---
This tech assumed care of patient at this time,hourly rounds and vitals completed, patient lying on stretcher comfortably at this time. Visitor at bedside and call meriad is within reach,
[2023-01-09 02:53] VITALS: O2SAT 98
--- NOTE | 2023-01-09 02:53 | PC.NURSE ---
Reviewed discharge instruction with pt, pt verbalized understanding, no sign of distress. Notified RN Elena
[2023-01-09 02:55] VITALS: BP 119/71; PULSE 61; RESP 16; TEMP 36.7; O2SAT 98
== END 2023-01-09 02:56 | disposition home or self-care (01) ==
PROVIDERS: Emergency Provider Emergency Medicine; PCP Student in an Organized Health Care Education/Training Program
DX: L50.0 Allergic urticaria (principal); R07.89 Other chest pain; R06.02 Shortness of breath; Z11.52 Encounter for screening for COVID-19; Z20.822 Contact with and (suspected) exposure to COVID-19; Z79.899 Other long term (current) drug therapy
CPT/HCPCS: 0241U; 71045; 80053; 85025; 87651; 93005; 96374; 96375; 99284; 99285; J1200; J2930

== ENCOUNTER 2023-02-27 13:15 | Emergency (ER) | payer OTHER, SELFPAY | END 2023-02-27 14:07 | disposition left against medical advice (07) | PROVIDERS: Emergency Provider Emergency Medicine; PCP Student in an Organized Health Care Education/Training Program | DX: R06.02 Shortness of breath (principal) ==

== ENCOUNTER 2023-02-27 15:52 | Emergency (ER) | payer OTHER, SELFPAY ==
[2023-02-27 15:57] VITALS: BP 133/86; PULSE 85; O2SAT 99
[2023-02-27 16:55] VITALS: BP 142/90; PULSE 84; RESP 22; TEMP 36.5; O2SAT 96; BMI 23.4
--- NOTE | 2023-02-27 16:56 | ED.GENADULT ---
HPI - General Adult General Chief complaint: Upper Respiratory Symptoms Stated complaint: pt coming from walking ctr w/asthma exacerbation Time Seen by Provider: 02/27/23 18:52 Source: patient and EMS Mode of arrival: EMS Limitations: no limitations History of Present Illness HPI narrative: Patient is a 37 year old assigned female at with a history of asthma presenting to the emergency department today with increased coughing and wheezing. Patient states that over the last 2 days she has had worsening wheezing and a cough. Patient denies any dizziness, lightheadedness, abdominal pain, nausea, vomiting, fever, chills, blurry vision, double vision, loss of vision, chest pain, difficulty breathing, shortness of breath, back pain, night sweats, pain with urination, increased urinary frequency, increased urinary urgency, blood in her urine or stool, syncope or a near syncopal episode, recent trauma or falls, bowel incontinence, bladder incontinence, bowel retention, bladder retention, or any other complaints at this time. Onset (ago): day(s) (2) Severity: mild Relieving factors: none Exacerbating factors: none Associated symptoms: cough Treatments prior to arrival: none Related Data Home Medications Medication Instructions Recorded Confirmed clonazepam 1 mg tablet 1 mg PO BID PRN Anxiety 12/13/19 05/27/22 divalproex 500 mg tablet,extended 500 mg PO BID 07/10/20 05/27/22 release 24 hr (Depakote ER) zolpidem 10 mg tablet 1 tab PO BEDTIME PRN Sleep 05/24/21 05/27/22 ascorbic acid (vitamin C) 500 mg 500 mg PO DAILY 03/05/22 05/27/22 tablet (Vitamin C) multivitamin 1 tab PO DAILY 03/05/22 05/27/22 Previous Rx's Medication Instructions Recorded prednisone 20 mg tablet 20 mg PO BID #10 tabs 05/17/22 levalbuterol HCl 1.25 mg/3 mL 1.25 mg (3 mL) inhalation Q4H PRN 08/11/22 solution for nebulization for wheezing #540 mL cetirizine 10 mg capsule (Zyrtec) 10 mg PO DAILY PRN allergy 08/23/22 symptoms #14 caps diphenhydramine HCl 25 mg capsule 25 mg PO TID PRN allergy symptoms 08/23/22 (Benadryl) #14 caps hydrocortisone 1 % topical cream 1 appl topical BID PRN rash 5 days 08/23/22 #28.35 grams prednisone 20 mg tablet 40 mg (2 x 20 mg) PO DAILY #8 tabs 10/16/22 metoprolol succinate 25 mg 25 mg PO DAILY #30 tabs 12/08/22 tablet,extended release 24 hr levalbuterol tartrate 45 2 puff PO Q4-6H PRN for wheezing 12/27/22 mcg/actuation aerosol inhaler #15 ea prednisone 20 mg tablet 40 mg (2 x 20 mg) PO DAILY #10 tabs 01/09/23 fluticasone 250 mcg-salmeterol 50 1 ea PO BID #60 ea 01/10/23 mcg/dose blistr powdr for inhalation (Tyra Louieub) Allergies Allergy/AdvReac Type Severity Reaction Status Date / Time magnesium Allergy Unknown Chest Pain Verified 02/27/23 21:52 somatropin [SOMATROPIN] Allergy Unknown UNKNOWN Verified 02/27/23 21:52 amitriptyline [AMITRIPTYLINE] AdvReac Intermediate NAUSEA, Verified 02/27/23 21:52 DIZZINESS albuterol [ALBUTEROL] AdvReac Mild TACHYCARDIA Verified 02/27/23 21:52 esomeprazole [From NEXIUM] AdvReac Mild TACHYCARDIA Verified 02/27/23 21:52 Review of Systems Constitutional: Constitutional: Reports no additional constitutional complaints, Denies chills, Denies fever(s) and Denies night sweats Eyes: Eyes: Reports no additional eye complaints, Denies blurry vision, Denies change in vision, Denies diplopia, Denies eye discharge, Denies loss of vision and Denies eye pain ENT: Denies dizziness Cardiovascular: Cardiovascular: Reports no additional cardiovascular complaints, Denies chest pain, Denies lightheadedness, Denies Loss of Consciousness and Denies dyspnea Respiratory: Respiratory: Reports no additional respiratory complaints, Reports cough, Denies dyspnea and Reports wheezing Gastrointestinal: Gastrointestinal: Reports no additional gastrointestinal complaints, Denies abdominal pain, Denies melena, Denies hematochezia, Denies change in bowel habits and Denies change in stool character Genitourinary: Genitourinary: Denies hematuria, Denies urinary frequency, Denies dysuria, Denies urinary incontinence, Denies urinary hesitancy and Denies urinary urgency Musculoskeletal: Musculoskeletal: Reports no additional musculoskeletal complaints, Denies numbness and Denies tingling Neurologic: Denies dizziness, Denies loss of vision, Denies numbness and Denies tingling Psychiatric: Psychiatric: Reports no additional psychiatric complaints Endocrine: Endocrine: Reports no additional endocrine complaints Hematologic/Lymphatic: Hematologic/Lymphatic: Reports no additional hematologic/lymphatic complaints Allergic/Immunologic: Allergic/Immunologic: Reports no additional allergic/immunologic complaints and Reports wheezing PMFSH Past Medical History Attestation statement: The following information was validated with the patient. Source: old records reviewed Onset Date is defined in the Problem List Problems that require an onset date and time if occurred within 24 hrs of arrival to the ED Aortic Dissection and Rupture; Neurologic impairment; Cardiopulmonary Arrest; Endotracheal Intubation; Insertion or Replacement of Mechanical Circulatory Assist Device Medical History Asthma-COPD overlap syndrome Inappropriate sinus tachycardia Kidney stones UTI (urinary tract infection) Subclinical hyperthyroidism Inappropriate sinus node tachycardia POTS (postural orthostatic tachycardia syndrome) Asthma with COPD with exacerbation SVT (supraventricular tachycardia) Family history of COPD (chronic obstructive pulmonary disease) Schizoaffective disorder COPD exacerbation Polycystic ovarian disease Diabetes mellitus Fibromyalgia COPD (chronic obstructive pulmonary disease) Carpal tunnel syndrome History of MRSA infection Bipolar 1 disorder Postural orthostatic tachycardia syndrome Surgical History History of renal stent Hx of lithotripsy Tubal ligation status History of tubal ligation Hx of abdominoplasty Family History Family History Other COPD (chronic obstructive pulmonary disease) Social History Social History Household Members: Children Housing: Apartment Do you presently have visiting nurse or other home services: No Alcohol intake: never Comment: sleeping Patient Tobacco Use Status: Never used Tobacco Second Hand Smoke Exposure: No Advance Directives: No Advance Directives Information Provided: No service: No Current occupational status: unemployed Physical Exam ED Vital Signs: BMI result Body Mass Index 23.4 Const General: cooperative, no acute distress, alert and awake Nutritional Appearance: well nourished Orientation/consciousness: patient oriented x3 Limitations: no limitations HENMT Head: Yes normal to inspection and Yes atraumatic Ears: hearing grossly normal bilaterally and external ears normal General nose exam: Normal external nose present, no nasal discharge noted and no epistaxis Face and sinus: Yes normal facial exam, No abrasion and No laceration Mouth: Normal oral and palatal mucosa present, no drooling and no muffled voice Eyes General: appearance normal, both eyes and all related structures Periorbital: periorbital findings normal Eyelids: Yes eyelids normal Conjunctivae: conjunctivae normal Pupils: Equal, round and reactive pupils present EOM: EOMs intact bilaterally Neck Neck: Yes normal visual inspection, Yes full ROM and Yes no lymphadenopathy Chest Chest palpation & inspection: normal inspection of the chest Resp Effort & Inspection: normal respiratory effort and able to speak in complete sentences Auscultation: wheezes throughout GI Inspection: Yes normal to inspection Neuro General: patient oriented x3 and moves all extremities Cranial nerves: Yes Equal, round and reactive pupils present Cognition (Neuro): normal cognition Motor exam (neuro): 5/5 motor strength present throughout Sensory Exam: Normal double simultaneous stimulation for sensation Coordination: [id number] test normal Extrem General: Yes normal to inspection, Yes full ROM and Yes capillary refill normal Psych Appearance: grossly normal Mental Status: mental status grossly normal Affect: normal affect Attitude: cooperative Thought process: Normal thought process present Thought content: Normal thought content present Insight: Good insight present (Psych) Course Course Course Narrative: RME performed by Becky Velázquez PA-C. Patient is a 37 year old assigned female at presenting to the emergency department with a cough, asthma exacerbation and fever. Detailed physical exam and review of systems are deferred to the director mortgage. Imaging and swabs ordered. Patient placed back in the waiting room pending room availability and results. Medical Decision Making Medical Decision Making MDM Narrative: Patient is a 37 year old assigned female at with a history of asthma presenting to the emergency department today with a cough and worsening wheezing. Patient's physical exam showed wheezing throughout. Patient left the department without completing treatment. Patient left the department before myself or any of the other emergency department clinicians could review or explain physical exam findings, need for testing, treatment options, or a treatment plan. Differential Diagnosis Differential Diagnoses: The differential diagnosis associated with the presentation includes Asthma Cough Admission/Observation Consideration of admission/observation: Escalation of care including admission/observation considered Patient would have been admitted to the hospital had her clinical presentation warranted hospital admission and she hadn't left the department. Independent Historian Clinical information obtained from an independent historian. History obtained from or confirmed by: EMS (EMS provided additional history and confirmed the history provided by the patient.) Discharge Plan Discharge Clinical Impression: Cough, Asthma Patient Disposition: Left W/O Completing Treatment Prescriptions: No Action levalbuterol HCl 1.25 mg/3 mL solution for nebulization 1.25 mg inhalation Q4H PRN (Reason: for wheezing) Qty: 540 0RF metoprolol succinate 25 mg tablet extended release 24 hr 25 mg PO DAILY Qty: 30 5RF Protocol: Hold for SBP/HR < HOLD for SBP < : 90 HOLD for HR < : 60 levalbuterol tartrate 45 mcg/actuation HFA aerosol inhaler 2 puff PO Q4-6H PRN (Reason: for wheezing) Qty: 15 0RF fluticasone propion-salmeterol [Wixela Inhub] 250-50 mcg/dose blister with device 1 ea PO BID Qty: 60 3RF clonazepam 1 mg tablet 1 mg PO BID PRN (Reason: Anxiety) divalproex [Depakote ER] 500 mg tablet extended release 24 hr 500 mg PO BID multivitamin Tablet 1 tab PO DAILY ascorbic acid (vitamin C) [Vitamin C] 500 mg Tablet 500 mg PO DAILY zolpidem 10 mg tablet 1 tab PO BEDTIME PRN (Reason: Sleep) prednisone 20 mg tablet 20 mg PO BID Qty: 10 0RF prednisone 20 mg tablet 40 mg PO DAILY Qty: 8 0RF prednisone 20 mg tablet 40 mg PO DAILY Qty: 10 0RF Zyrtec 10 mg capsule 10 mg PO DAILY PRN (Reason: allergy symptoms) Qty: 14 0RF diphenhydramine HCl [Benadryl] 25 mg capsule 25 mg PO TID PRN (Reason: allergy symptoms) Qty: 14 0RF hydrocortisone 1 % cream 1 appl topical BID PRN (Reason: rash) 5 Days Qty: 28.35 0RF Discharge Date/Time: 02/27/23 21:40
== END 2023-02-27 21:40 | disposition left against medical advice (07) ==
PROVIDERS: Emergency Provider Emergency Medicine
DX: R05.9 Cough, unspecified (principal); R06.2 Wheezing; Z79.899 Other long term (current) drug therapy
CPT/HCPCS: 99283

== ENCOUNTER 2023-02-27 21:46 | Emergency (ER) | payer OTHER, SELFPAY ==
--- NOTE | ~2023-02-27 | XR_ITS ---
EXAMINATION: XR CHEST CLINICAL INFORMATION: Shortness of breath wheezing COMPARISON: Chest radiograph from 01/08/2023 TECHNIQUE: Frontal view of the chest was obtained. FINDINGS: No focal consolidation. No pneumothorax. Trachea is midline. Cardiomediastinal silhouette is not enlarged. No large pleural effusion. Osseous structures are intact. Soft tissues are unremarkable. XR/XR chest 1V IMPRESSION: No acute cardiopulmonary process.
[2023-02-27 21:52] VITALS: BP 142/88; PULSE 115; RESP 22; TEMP 36.7; O2SAT 97; BMI 23.4
--- NOTE | 2023-02-27 22:02 | ECG_ITS ---
Test Reason : SOB Blood Pressure : / mmHG Vent. Rate : 082 BPM Atrial Rate : 082 BPM P-R Int : 132 ms QRS Dur : 082 ms QT Int : 374 ms P-R-T Axes : 047 062 051 degrees QTc Int : 436 ms Normal sinus rhythm Normal ECG When compared with ECG of 08-JAN-2023 22:11, No significant change was found Referred By: Generic ED Physician Electronically Signed By:ROM WILKINS MD
--- NOTE | 2023-02-27 22:26 | MHC.EDTECH ---
Patient brought into triage area,EKG taken and signed by provider,labs,strep,and Sars/Flu/Rsv obtained and sent to lab.Patient brought to X-ray
[2023-02-27 22:33] LABS: MANUAL DIFF FLAG NO
[2023-02-27 22:35] LABS: Basophils Absolute Auto 0.1 X10*3/uL (0.0-0.2); Basophils Percent Auto 0.8 % (0-2); Eosinophils Absolute Auto 0.6 X10*3/uL (0.0-0.4); Eosinophils Percent Auto 5.5 % (0-4); Hematocrit 41.5 % (37.0-47.0); Hemoglobin 13.7 g/dl (12.0-16.0); Imm Gran Abs Auto 0.03 X10*3/uL (0.00-0.03); Imm Gran Pct Auto 0.3 % (0.0-0.4); Lymphocytes Absolute Auto 2.4 X10*3/uL (1.2-4.9); Mean Corpuscular Volume 87.9 fL (80.0-98.0); Mean Platelet Volume 9.9 fL (9.4-12.3); Neutrophils Percent Auto 59.4 % (45-73); Platelet Count 352 X10*3/uL (160-400); Red Blood Count 4.72 X10*6/uL (4.20-5.50); Red Cell Distribution Width 12.8 % (11.0-16.0); White Blood Count 10.1 X10*3/uL (4.8-10.8)
[2023-02-27 22:48] LABS: Alanine Aminotransferase 16 U/L (0-31); Albumin Level 4.3 g/dL (3.5-5.0); Alkaline Phosphatase 62 U/L (39-117); Anion Gap 16 (12-20); Aspartate Amino Transferase 17 U/L (5-31); Bilirubin Total 0.3 mg/dL (0.0-1.0); Blood Urea Nitrogen 10 mg/dL (9-16); Calcium 9.5 mg/dL (8.4-10.2); Carbon Dioxide 26 mmol/L (22-29); Chloride 104 mmol/L (96-108); Creatinine Clr Calc Pharmacy 70.5; Estimated Glomerular Filt Rate > 60; Glucose Random 96 mg/dL (60-115); Potassium 4.1 mmol/L (3.3-5.1); Sodium 142 mmol/L (135-145); Total Protein 7.6 g/dL (6.5-8.0)
[2023-02-27 22:54] LABS: Troponin-I High Sensitivity < 2.7 ng/L (<3.5-17.0)
[2023-02-27 23:12] LABS: Influenza A PCR NEGATIVE (Negative); Influenza B PCR NEGATIVE (Negative); Resp Syncy Virus RNA Qual PCR NEGATIVE (Negative); SARS COV2 PCR INHOUSE NEGATIVE (Negative)
[2023-02-27 23:17] LABS: IDNOW Serial# 08D9AD1C
[2023-02-27 23:18] LABS: Strep A Nucleic Acid Negative (Negative)
== END 2023-02-28 03:46 | disposition left against medical advice (07) ==
PROVIDERS: Emergency Provider Emergency Medicine; PCP Student in an Organized Health Care Education/Training Program
DX: R06.02 Shortness of breath (principal); R06.2 Wheezing; Z20.822 Contact with and (suspected) exposure to COVID-19; Z20.828 Contact with and (suspected) exposure to other viral communicable diseases; Z79.899 Other long term (current) drug therapy
CPT/HCPCS: 0241U; 36415; 71045; 80053; 84484; 85025; 87651; 93005; 99283

== ENCOUNTER → 2023-02-27 22:02 | Outpatient (BNV) | payer OTHER, SELFPAY | PROVIDERS: Emergency Provider Emergency Medicine; PCP Student in an Organized Health Care Education/Training Program; Visit Provider Internal Medicine Cardiovascular Disease | DX: R06.02 Shortness of breath (principal) | CPT/HCPCS: 93010 ==

== ENCOUNTER 2023-05-29 13:38 | Outpatient (AMB) | payer OTHER, SELFPAY ==
[2023-05-29 13:40] VITALS: BP 120/74; PULSE 92; BMI 25.0
--- NOTE | 2023-05-29 13:40 | MHC.OFFVIS ---
Intake Vital Signs 05/29/23 13:40 Height 5 ft Weight 127 lb 13.89 oz BMI 25.0 BP 120/74 Blood Pressure Location Lt brachial Position Sitting Pulse 92 Intake Visit Reasons: 1 year follow up Intake Note: 1 year follow-up feeling good was in the ED in [place] can feel palpitations at times [employer]ove[employer] Helper Required: No Allergies magnesium Allergy (Unknown, Verified 02/27/23 21:52) Chest Pain somatropin [SOMATROPIN] Allergy (Unknown, Verified 02/27/23 21:52) UNKNOWN amitriptyline [AMITRIPTYLINE] Adverse Reaction (Intermediate, Verified 02/27/23 21:52) NAUSEA, DIZZINESS albuterol [ALBUTEROL] Adverse Reaction (Mild, Verified 02/27/23 21:52) TACHYCARDIA esomeprazole [From NEXIUM] Adverse Reaction (Mild, Verified 02/27/23 21:52) TACHYCARDIA Medication List - Last Reconciled 05/29/23 by Costa Mireles MD ascorbic acid (vitamin C) (Vitamin C) 500 mg PO DAILY cetirizine (Zyrtec) 10 mg PO DAILY PRN clonazepam 1 mg PO BID PRN diphenhydramine HCl (Benadryl) 25 mg PO TID PRN divalproex ER (Depakote ER) 500 mg PO BID fluticasone propion-salmeterol 250-50 mcg/dose (Wixela Inhub) 1 ea PO BID hydrocortisone 1% 1 appl topical BID PRN 5 days levalbuterol HCl 1.25 mg (3 mL) inhalation Q4H PRN levalbuterol tartrate 45 mcg/actuation 2 puffs PO Q4-6H PRN metoprolol succinate ER 25 mg See Protocol PO DAILY multivitamin 1 tab PO DAILY zolpidem 1 tab PO BEDTIME PRN HPI HPI Comments History of Present Illness Details Guillermina comes for follow-up. She continues to have issues with asthma. Her Corlanor was stopped for unclear reasons. She has episodes of palpitation when she is exerting and when she has shortness of breath. However she also has intermittent episodes of palpitations without exertion. She is currently being followed by Pulmonary closely. She tries to go for a walk every day with her son. [facility] Medical History (Updated 05/30/23 @ 09:13 by Costa Mireles MD) Inappropriate sinus tachycardia Asthma-COPD overlap syndrome Kidney stones UTI (urinary tract infection) Subclinical hyperthyroidism Inappropriate sinus node tachycardia POTS (postural orthostatic tachycardia syndrome) Asthma with COPD with exacerbation SVT (supraventricular tachycardia) Family history of COPD (chronic obstructive pulmonary disease) Schizoaffective disorder COPD exacerbation Polycystic ovarian disease Diabetes mellitus Fibromyalgia COPD (chronic obstructive pulmonary disease) Carpal tunnel syndrome History of MRSA infection Bipolar 1 disorder Postural orthostatic tachycardia syndrome Surgical History History of renal stent Hx of lithotripsy Tubal ligation status History of tubal ligation Hx of abdominoplasty Family History Other COPD (chronic obstructive pulmonary disease) Social History Household Members: Children Housing: Apartment Do you presently have visiting nurse or other home services: No Alcohol intake: never Comment: sleeping Patient Tobacco Use Status: Never used Tobacco Second Hand Smoke Exposure: No service: No Current occupational status: unemployed Review of Systems Const Denies chills, Denies fatigue, Denies fever(s), Denies frequent falls, Denies weakness, Denies weight gain and Denies weight loss ENT Denies dizziness Card Denies chest pain, Denies leg edema, Denies lightheadedness, Denies palpitations, Denies dyspnea, Denies dyspnea on exertion, Denies orthopnea and Denies other (loss of consciousness) Resp Denies cough, Denies dyspnea and Denies dyspnea on exertion GI Denies hematochezia and Denies change in stool character Musc Denies abnormal gait, Denies muscle weakness, Denies numbness, Denies radiating pain into limb and Denies tingling Neuro Denies abnormal gait, Denies dizziness, Denies frequent falls, Denies numbness, Denies tingling and Denies weakness Endo Denies fatigue and Denies palpitations Physical Exam Vital Signs: Last Vital Signs Pulse 92 05/29/23 13:40 BP 120/74 05/29/23 13:40 BMI result Body Mass Index 25.0 Const General: cooperative, comfortable, no acute distress, alert and awake Nutritional Appearance: thin Orientation/consciousness: patient oriented x3 Neck Neck: Yes trachea midline, Yes supple and Yes no JVD Resp Effort & Inspection: normal respiratory effort Auscultation: rhonchi throughout and diminished lung sounds Cardio Jugular venous distension: no JVD Palpation: normal PMI Rate: regular rate Rhythm: regular rhythm Heart sounds: S1 normal heart sound present, S2 normal heart sound present, no click, no gallops and no murmurs GI Auscultation: normal bowel sounds Skin General skin exam: no rashes or lesions noted Neuro General: patient oriented x3 and no focal motor deficits Assessment & Plan Assessment & Plan (1) SVT (supraventricular tachycardia): Code(s): I47.1 - Supraventricular tachycardia Plan: Patient with prior history of SVT which has remained suppressed on metoprolol therapy. Can not greatly uptitrate the dose due to her bronchospastic airway disease. Continue to use pulmonary specific bronchodilators described. Avoidance of stimulants was discussed. Vagal maneuvers were discussed. (2) Inappropriate sinus tachycardia: Code(s): R00.0 - Tachycardia, unspecified Plan: Patient also has inappropriate sinus tachycardia and/or sinus tachycardia related to severe asthma. She gets significant elevated heart rate when she is doing minimal exertion. She is bothered by these. She is done very well on Corlanor therapy in the past to reduce sinus node sensitivity. Will represcribed the Corlanor. Continue metoprolol therapy. Avoidance of stimulants such as caffeine and alcohol was discussed. Continue with pulmonary specific bronchodilators. Will follow up in the clinic in 1 year's time, sooner p.r.n.. Thank you for allowing me to partake in the care Medications: New ivabradine (Corlanor) must administer with a meal/food 5 mg PO BID 60 tabs 5RF Coding Level of Care Code Est Pt Level 3 (62414) Diagnoses SVT (supraventricular tachycardia) I47.1 Inappropriate sinus tachycardia R00.0
== END 2023-05-29 14:00 | disposition home or self-care (01) ==
PROVIDERS: Visit Provider Internal Medicine Cardiovascular Disease
DX: I47.10 Supraventricular tachycardia, unspecified (principal); R00.0 Tachycardia, unspecified
CPT/HCPCS: 99213

== ENCOUNTER → 2023-05-29 13:38 | Outpatient (BNVA) | payer OTHER, SELFPAY | PROVIDERS: Visit Provider Internal Medicine Cardiovascular Disease | DX: I47.10 Supraventricular tachycardia, unspecified (principal) | CPT/HCPCS: 99212 ==

== ENCOUNTER 2023-09-23 11:50 | Emergency (ER) | payer OTHER, SELFPAY ==
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
[2023-09-23 11:59] VITALS: BP 130/78; PULSE 84; RESP 18; TEMP 36.7; O2SAT 97; BMI 25.8
[2023-09-23] MEDS: Ketorolac Tromethamine 15 MG/ML VIAL IM (12:16)
[2023-09-23] MEDS: Cyclobenzaprine HCl 5 MG TABLET PO (12:17)
--- NOTE | 2023-09-23 12:22 | PC.NURSE ---
medication administered per provider order. effectiveness pending.
[2023-09-23 13:34] VITALS: BP 130/78; PULSE 84; RESP 18; TEMP 36.7; O2SAT 97
== END 2023-09-23 13:34 | disposition home or self-care (01) ==
PROVIDERS: Emergency Provider Emergency Medicine; PCP Student in an Organized Health Care Education/Training Program
DX: Z04.1 Encounter for examination and observation following transport accident (principal); M54.2 Cervicalgia; M54.9 Dorsalgia, unspecified; M79.643 Pain in unspecified hand
CPT/HCPCS: 96372; 99283; 99284; J1885

== ENCOUNTER 2023-11-01 11:14 | Emergency (ER) | payer OTHER, SELFPAY ==
--- NOTE | ~2023-11-01 | XR_ITS ---
EXAMINATION: XR HAND, LEFT CLINICAL INFORMATION: Trauma to hand, pain third and fourth fingers, patient refused to take off jewelry for exam, limiting visualization COMPARISON: None available. TECHNIQUE: PA, lateral, and oblique views of the left hand. FINDINGS: Bone mineralization is normal. Joint spaces are maintained. No displaced fracture is appreciated, however, visualization is somewhat limited due to overlying jewelry. XR/XR hand LT min 3V IMPRESSION: No displaced fracture is appreciated, however, visualization is somewhat limited due to overlying jewelry. This study was presented today November 01, 2023 for interpretation. Stat results provided at this time as requested by referring provider. Electronically signed by: Arleth Mtz MD 11/01/2023 01:24 PM EDT
[2023-11-01 11:58] VITALS: BP 162/90; PULSE 99; RESP 20; TEMP 36.4; O2SAT 99; BMI 24.6
--- NOTE | 2023-11-01 12:06 | ED_ITS ---
HPI - Extremity Problem General Chief complaint: Extremity Injury, Upper Stated complaint: Hand injury @ work Time Seen by Provider: 11/01/23 12:45 Source: patient Mode of arrival: ambulatory Limitations: no limitations History of Present Illness ED Provider: Becky Velázquez PA-C HPI Narrative: Patient is a 38 year old assigned female at with a history of DM, POTS, and bipolar disorder presenting to the emergency department today with left 3rd and 4th finger pain. Patient states that she got her fingers closed in a safe door at work today. Patient denies any dizziness, lightheadedness, abdominal pain, nausea, vomiting, fever, chills, blurry vision, double vision, loss of vision, chest pain, difficulty breathing, shortness of breath, back pain, night sweats, pain with urination, increased urinary frequency, increased urinary urgency, blood in her urine or stool, syncope or a near syncopal episode, bowel incontinence, bladder incontinence, or any other complaints at this time. MD Complaint: extremity pain Onset (ago): minute(s) Pain Consistency: constant Location: left and other (3rd and 4th fingers) Relieving factors: nothing Exacerbating factors: nothing Associated symptoms: denies other symptoms Related Data Home Medications ?Medication ?Instructions ?Recorded ?Confirmed clonazepam 1 mg tablet 1 mg PO BID PRN Anxiety 12/13/19 05/29/23 divalproex 500 mg tablet,extended 500 mg PO BID 07/10/20 05/29/23 release 24 hr (Depakote ER) zolpidem 10 mg tablet 1 tab PO BEDTIME PRN Sleep 05/24/21 05/29/23 ascorbic acid (vitamin C) 500 mg 500 mg PO DAILY 03/05/22 05/29/23 tablet (Vitamin C) multivitamin 1 tab PO DAILY 03/05/22 05/29/23 Previous Rx's ?Medication ?Instructions ?Recorded levalbuterol HCl 1.25 mg/3 mL 1.25 mg (3 mL) inhalation Q4H PRN 08/11/22 solution for nebulization for wheezing #540 mL cetirizine 10 mg capsule (Zyrtec) 10 mg PO DAILY PRN allergy 08/23/22 symptoms #14 caps diphenhydramine HCl 25 mg capsule 25 mg PO TID PRN allergy symptoms 08/23/22 (Benadryl) #14 caps hydrocortisone 1 % topical cream 1 appl topical BID PRN rash 5 days 08/23/22 #28.35 grams levalbuterol tartrate 45 2 puff PO Q4-6H PRN for wheezing 12/27/22 mcg/actuation aerosol inhaler #15 ea fluticasone 250 mcg-salmeterol 50 1 ea PO BID #60 ea 01/10/23 mcg/dose blistr powdr for inhalation (Wixela Inhub) ivabradine 5 mg tablet (Corlanor) 5 mg PO BID #60 tabs 06/08/23 metoprolol succinate 25 mg 25 mg PO DAILY #90 tabs 06/16/23 tablet,extended release 24 hr cyclobenzaprine 5 mg tablet 5 mg PO TID PRN body pain 7 days 09/23/23 #21 tabs Allergies Allergy/AdvReac Type Severity Reaction Status Date / Time magnesium Allergy Unknown Chest Pain Verified 11/01/23 12:01 somatropin [SOMATROPIN] Allergy Unknown UNKNOWN Verified 11/01/23 12:01 amitriptyline [AMITRIPTYLINE] AdvReac Intermediate NAUSEA, Verified 11/01/23 12:01 DIZZINESS albuterol [ALBUTEROL] AdvReac Mild TACHYCARDIA Verified 11/01/23 12:01 esomeprazole [From NEXIUM] AdvReac Mild TACHYCARDIA Verified 11/01/23 12:01 Review of Systems Constitutional: Constitutional: Reports no additional constitutional complaints, Denies chills, Denies fever(s) and Denies night sweats Eyes: Eyes: Reports no additional eye complaints, Denies blurry vision, Denies change in vision, Denies diplopia, Denies eye discharge, Denies loss of vision and Denies eye pain ENT: Denies dizziness Cardiovascular: Cardiovascular: Reports no additional cardiovascular complaints, Denies chest pain, Denies lightheadedness, Denies Loss of Consciousness and Denies dyspnea Respiratory: Respiratory: Reports no additional respiratory complaints and Denies dyspnea Gastrointestinal: Gastrointestinal: Reports no additional gastrointestinal complaints, Denies abdominal pain, Denies melena, Denies hematochezia, Denies change in bowel habits and Denies change in stool character Genitourinary: Genitourinary: Denies hematuria, Denies urinary frequency, Denies dysuria, Denies urinary incontinence, Denies urinary hesitancy and Denies urinary urgency Musculoskeletal: Musculoskeletal: Reports no additional musculoskeletal complaints, Denies numbness and Denies tingling Comments: left 3rd and 4th finger pain Neurologic: Denies dizziness, Denies loss of vision, Denies numbness and Denies tingling Psychiatric: Psychiatric: Reports no additional psychiatric complaints Endocrine: Endocrine: Reports no additional endocrine complaints Hematologic/Lymphatic: Hematologic/Lymphatic: Reports no additional hematologic/lymphatic complaints Allergic/Immunologic: Allergic/Immunologic: Reports no additional allergic/immunologic complaints [facility] Past Medical History Attestation statement: The following information was validated with the patient. Source: old records reviewed and nursing notes reviewed Medical History Acute hypoxemic respiratory failure Asthma with COPD with exacerbation COVID-19 virus infection Inappropriate sinus tachycardia Asthma-COPD overlap syndrome Kidney stones UTI (urinary tract infection) Subclinical hyperthyroidism Inappropriate sinus node tachycardia POTS (postural orthostatic tachycardia syndrome) Asthma with COPD with exacerbation SVT (supraventricular tachycardia) Family history of COPD (chronic obstructive pulmonary disease) Schizoaffective disorder COPD exacerbation Polycystic ovarian disease Diabetes mellitus Fibromyalgia COPD (chronic obstructive pulmonary disease) Carpal tunnel syndrome History of MRSA infection Bipolar 1 disorder Postural orthostatic tachycardia syndrome Surgical History History of renal stent Hx of lithotripsy Tubal ligation status History of tubal ligation Hx of abdominoplasty Family History Family History Other COPD (chronic obstructive pulmonary disease) Social History Social History Household Members: Children Housing: Apartment Do you presently have visiting nurse or other home services: No Alcohol intake: never Comment: sleeping Patient Tobacco Use Status: Never used Tobacco Second Hand Smoke Exposure: No Advance Directives: No Do you have a plan to hurt others: No Plan service: No Current occupational status: unemployed Physical Exam Vital Signs: Vital Signs: Last Vital Signs Temp 97.6 F 11/01/23 13:43 Pulse 99 11/01/23 13:43 Resp 20 11/01/23 13:43 BP 162/90 H 11/01/23 13:43 Pulse Ox 99 11/01/23 13:43 O2 Del Method Room Air 11/01/23 13:43 BMI result Body Mass Index 24.6 Const: General: cooperative, no acute distress, alert and awake Nutritional Appearance: well nourished Orientation/consciousness: patient oriented x3 Limitations: no limitations HEENT: Head: Yes normal to inspection and Yes atraumatic Ears: hearing grossly normal bilaterally and external ears normal General nose exam: Normal external nose present, no nasal discharge noted and no epistaxis Face and sinus: Yes normal facial exam, No abrasion and No laceration Mouth: Normal oral and palatal mucosa present, no drooling and no muffled voice Eyes: General: appearance normal, both eyes and all related structures Periorbital: periorbital findings normal Eyelids: Yes eyelids normal Conjunctivae: conjunctivae normal Pupils: Equal, round and reactive pupils present EOM: EOMs intact bilaterally Neck: Neck: Yes normal visual inspection, Yes full ROM and Yes no lymphadenopathy Chest: Chest palpation & inspection: normal inspection of the chest Resp: Effort & Inspection: normal respiratory effort and able to speak in complete sentences GI: Inspection: Yes normal to inspection Neuro: General: patient oriented x3 and moves all extremities Cranial nerves: Yes Equal, round and reactive pupils present Cognition (Neuro): normal cognition Extrem: Other: bruising present to the dorsal left 3rd and 4th fingers bruising present to the palmar aspect of the 3rd and 4th left fingers as well as small blood blisters to the plamar aspect of the 3rd and 4th left fingers General: Yes full ROM and Yes capillary refill normal Psych: Appearance: grossly normal Mental Status: mental status grossly normal Affect: normal affect Attitude: cooperative Thought process: Normal thought process present Thought content: Normal thought content present Insight: Good insight present (Psych) Course Course Course Narrative: This is an RME done by MARITZA Howard: Additional HPI, ROS, PE not included below will be deferred to primary provider. 38yo F presenting after a safe door closed on her L 3rd and 4th digits. Endorses pain, limited ROM secondary to pain. Denies radiation to wrist and elbow Appearance: Alert.? Oriented X3.? No acute cardiopulmonary distress distress.? Head: Normocephalic, atraumatic CVS: Pulses normal.? Respiratory: No respiratory distress.? Skin: ? Normal skin color. Extremities: 3rd and 4th L phalanges palmar aspect with ecchymosis and limited ROM secondary to pain Neuro: Oriented X 3.? Medical Decision Making Medical Decision Making MDM Narrative: Patient is a 38 year old assigned female at with a history of bipolar disorder, DM, POTS, and asthma presenting to the emergency department today with left 3rd and 4th finger pain. Patient's physical exam was as noted in the physical exam portion of this note. Patient's left hand x-ray showed no acute process. I explained my physical exam findings as well as all test results to the patient. I answered all questions asked by the patient. I stressed the importance of the patient taking her medication as directed (either prescribed or as the over the counter packaging recommends). I stressed the importance of the patient following up with her primary care provider. I stressed the importance of the patient returning to the emergency department immediately if her symptoms were to worsen or if she were to develop any dizziness, shortness of breath, difficulty breathing, chest pain, blurry vision, loss of vision, nausea, vomiting, abdominal pain, fever, chills, back pain, or any other complaints. Patient verbalized agreement and understanding with this treatment plan and discharge. Differential Diagnosis Differential Diagnoses: The differential diagnosis associated with the presentation includes Contusion Finger fracture Finger sprain Finger strain Admission/Observation Consideration of admission/observation: Escalation of care including admission/observation considered Patient would have been admitted to the hospital had her work up had any findings where hospital admission was appropriate and her clinical presentation warranted hospital admission. Independent Interpretation I performed an independent interpretation of an: Plain X-Ray Interpretation: My interpretation is in agreement with the radiologist's impression of this imaging study. EXAMINATION: XR HAND, LEFT CLINICAL INFORMATION: Trauma to hand, pain third and fourth fingers, patient refused to take off je [employer] for exam, limiting visualization COMPARISON: None available. TECHNIQUE: PA, lateral, and oblique views of the left hand. FINDINGS: Bone mineralization is normal. Joint spaces are maintained. No displaced fracture is appreciated, however, visualization is somewhat limited due to overlying jewelry. XR/XR hand LT min 3V IMPRESSION: No displaced fracture is appreciated, however, visualization is somewhat limited due to overlying jewelry. This study was presented today November 01, 2023 for interpretation. Stat results provided at this time as requested by referring provider. Electronically signed by: Arleth Mtz MD 11/01/2023 01:24 PM EDT RP Dictated By: Arleth Mtz MD Signed By: Electronically signed by Arleth Mtz MD 11/01/23 1324 Radiology Impression Discussion of test interpretation with radiology: I have reviewed the rad iologist's reading. Discharge Plan Discharge Clinical Impression: Contusion Patient Disposition: Home, Self-Care Instructions: Contusion in Adults (ED) Additional Instructions: Follow up with your primary care provider and given this was a work place injury, work connection. Return to the emergency department immediately if your symptoms worsen or if you develop any dizziness, shortness of breath, difficulty breathing, chest pain, blurry vision, loss of vision, nausea, vomiting, abdominal pain, fever, chills, back pain, or any other complaints. Prescriptions: No Action levalbuterol HCl 1.25 mg/3 mL solution for nebulization 1.25 mg inhalation Q4H PRN (Reason: for wheezing) Qty: 540 0RF levalbuterol tartrate 45 mcg/actuation HFA aerosol inhaler 2 puff PO Q4-6H PRN (Reason: for wheezing) Qty: 15 0RF fluticasone propion-salmeterol [Wixela Inhub] 250-50 mcg/dose blister with device 1 ea PO BID Qty: 60 3RF Corlanor 5 mg tablet 5 mg PO BID Qty: 60 11RF Rx Instructions: must administer with a meal/food metoprolol succinate 25 mg tablet extended release 24 hr 25 mg PO DAILY Qty: 90 3RF clonazepam 1 mg tablet 1 mg PO BID PRN (Reason: Anxiety) divalproex [Depakote ER] 500 mg tablet extended release 24 hr 500 mg PO BID multivitamin Tablet 1 tab PO DAILY ascorbic acid (vitamin C) [Vitamin C] 500 mg Tablet 500 mg PO DAILY zolpidem 10 mg tablet 1 tab PO BEDTIME PRN (Reason: Sleep) cyclobenzaprine 5 mg tablet 5 mg PO TID PRN (Reason: body pain) 7 Days Qty: 21 0RF Zyrtec 10 mg capsule 10 mg PO DAILY PRN (Reason: allergy symptoms) Qty: 14 0RF diphenhydramine HCl [Benadryl] 25 mg capsule 25 mg PO TID PRN (Reason: allergy symptoms) Qty: 14 0RF hydrocortisone 1 % cream 1 appl topical BID PRN (Reason: rash) 5 Days Qty: 28.35 0RF Referrals: Kelly Hanley MD [Primary Care Provider] - Stand Alone Forms: Work/School Release Interventions: ED Discharge Assessment Last Done: 11/01/23 13:43 Discharge Date/Time: 11/01/23 13:46 Print Language: French
[2023-11-01 13:43] VITALS: BP 162/90; PULSE 99; RESP 20; TEMP 36.4; O2SAT 99
== END 2023-11-01 13:46 | disposition home or self-care (01) ==
PROVIDERS: Emergency Provider Emergency Medicine Emergency Medical Services; PCP Student in an Organized Health Care Education/Training Program
DX: S60.032A Contusion of left middle finger without damage to nail, initial encounter (principal); S60.042A Contusion of left ring finger without damage to nail, initial encounter; W23.1XXA Caught, crushed, jammed, or pinched between stationary objects, initial encounter; Y93.89 Activity, other specified; Y92.89 Other specified places as the place of occurrence of the external cause; Y99.0 Civilian activity done for income or pay; M79.645 Pain in left finger(s)
CPT/HCPCS: 73130; 99282; 99283

== ENCOUNTER 2023-11-20 13:54 | Outpatient (REF) | payer OTHER, SELFPAY ==
--- NOTE | ~2023-11-20 | XR_ITS ---
EXAMINATION: XR HAND, LEFT CLINICAL INFORMATION: M79.642 - Pain in left hand COMPARISON: 11/01/2023, 06/14/2016. TECHNIQUE: PA, lateral, and ball-catcher's, and oblique views of the left hand. Study is submitted for interpretation 01/28/2024. FINDINGS: No fracture, dislocation, or suspicious bone lesion. No periarticular osteopenia, erosions, or arthritis identified. There is a small cystic focus in the radial aspect of the capitate, nonspecific and likely clinically not significant. Carpal bones normally aligned, and intact with normal joint spaces. No soft tissue abnormality. XR/XR hand LT min 3V IMPRESSION: No acute findings left hand. No arthritic findings identified. Electronically signed by: Adilson Littlejohn MD 01/28/2024 03:44 PM [facility]
== END 2023-11-20 13:55 | disposition home or self-care (01) ==
LOC: HO.HOSX 13:54
DX: M79.642 Pain in left hand (principal); M79.645 Pain in left finger(s)
CPT/HCPCS: 73130; 99202

== ENCOUNTER 2023-11-20 15:18 | Outpatient (AMB) | payer OTHER, SELFPAY ==
--- NOTE | 2023-11-20 15:32 | A.OFFVIS_ITS ---
Vital Signs 11/20/23 15:33 Height 5 ft Weight 128 lb BMI 25.0 Handedness Right Intake Visit Reasons: [employer]- LT middle fg/ ring fg injury Intake Note: Guillermina is a 38 year old right hand dominant female who presents today as a new patient for an ED follow up of her 3rd and 4th finger pain DOI: 11/01/2023. Patient reports she got her fingers closed in a metal door. Patient reports aching pain in the 2nd, 3rd, and 4th digits when she attempts to close her fist, lift objects and with palpitation. She reports she feels a bump on the volar aspect of her 3rd digit. Tylenol offers no relief. Allergies fluconazole [From Diflucan] Allergy (Severe, Verified 11/20/23 15:34) Hives magnesium Allergy (Unknown, Verified 11/20/23 15:34) Chest Pain somatropin [SOMATROPIN] Allergy (Unknown, Verified 11/20/23 15:34) UNKNOWN amitriptyline [AMITRIPTYLINE] Adverse Reaction (Intermediate, Verified 11/20/23 15:34) NAUSEA, DIZZINESS albuterol [ALBUTEROL] Adverse Reaction (Mild, Verified 11/20/23 15:34) TACHYCARDIA esomeprazole [From NEXIUM] Adverse Reaction (Mild, Verified 11/20/23 15:34) TACHYCARDIA HPI HPI [employer]- LT middle fg/ ring fg injury: Details: Patient is a 38-year-old female who presents for evaluation of left middle finger and ring finger crush injury, date of injury 11/01/2023. The patient reports that on that date, these 2 fingers were caught in a large metal door, resulting in a crush injury. The patient was evaluated in the ED on that date, were fractures revealed no fracture or acute bony abnormality, but the patient did develop significant pain and swelling in that area. Today, the patient reports that her symptoms have improved, however she is still experiencing pain and tenderness to palpation, particularly at the level of the DIP joint in the middle finger. Patient also reports that she has some slightly diminished sensation in the tip of the middle finger, however sensation in all other fingers of the left hand is normal. The patient reports that she is able to get close to making a closed fist with the left hand, however this does cause her some discomfort in her left middle finger. No other acute complaints or concerns at this time. [facility] Medical History Acute hypoxemic respiratory failure Asthma with COPD with exacerbation COVID-19 virus infection Inappropriate sinus tachycardia Asthma-COPD overlap syndrome Kidney stones UTI (urinary tract infection) Subclinical hyperthyroidism Inappropriate sinus node tachycardia POTS (postural orthostatic tachycardia syndrome) Asthma with COPD with exacerbation SVT (supraventricular tachycardia) Family history of COPD (chronic obstructive pulmonary disease) Schizoaffective disorder COPD exacerbation Polycystic ovarian disease Diabetes mellitus Fibromyalgia COPD (chronic obstructive pulmonary disease) Carpal tunnel syndrome History of MRSA infection Bipolar 1 disorder Postural orthostatic tachycardia syndrome Surgical History History of renal stent Hx of lithotripsy Tubal ligation status History of tubal ligation Hx of abdominoplasty Family History Other COPD (chronic obstructive pulmonary disease) Social History (Updated 11/20/23 @ 15:36 by UTE Pratt) Household Members: Children Housing: Apartment Do you presently have visiting nurse or other home services: No Alcohol intake: never Comment: sleeping Patient Tobacco Use Status: Never used Tobacco Second Hand Smoke Exposure: No service: No Current occupational status: employed Current occupation: [employer] in [employer] / right hand dominant Review of Systems Const All systems reviewed & are unremarkable except as noted in HPI and below Physical Exam Vital Signs: BMI result Body Mass Index 25.0 Extrem Other: Patient is alert, oriented, and in no acute distress. Neuro: Patient reports diminished sensation to the tip of the left middle finger Normal sensation of the tips of all other digits of the left hand at this time Vascular: Cap refill brisk Pain: Patient reports tenderness to palpation at the level of the DIP joint of the left middle finger Patient also reports tenderness to palpation of the ulnar aspect of the proximal phalanx of the left index finger ROM: With encouragement, patient is able to make a closed fist and extend all digits of the left hand fully General: Mild edema noted at the level of the DIP joint of the volar left middle finger There is also noted to be healing lacerations on the volar aspect of both the left middle and ring fingers No ecchymosis, erythema, or evidence of infection. Psych: Appears grossly normal Affect normal Attitude cooperative Results Reviewed Results Reviewed: X-rays obtained in the office today and independently reviewed by me, Moris Woodruff PA-C, demonstrate no fracture or acute bony abnormality. Assessment & Plan Assessment & Plan (1) Pain of left middle finger: Code(s): M79.645 - Pain in left finger(s) Category: Medical Plan 1. Left middle finger pain 2. Left ring finger pain Date of injury 11/01/2023 At this time, patient is educated that her x-rays do not show any fracture or acute bony abnormality However, due to the patient's continued symptoms, we should proceed as if there is a small, nondisplaced fracture that is not radio evident Patient should continue with santiago taping for at least the next 2-3 weeks Patient should avoid any heavy lifting more than 2 lb in her left hand Patient was amenable to this plan Patient will follow-up as needed with any acute concerns Orders: Orders XR hand LT min 3V Today M79.642 - Pain in left hand Coding Level of Care Code New Pt Level 3 (46021) Diagnoses Pain of left middle finger M79.645
[2023-11-20 15:33] VITALS: BMI 25.0
== END 2023-11-20 15:52 | disposition home or self-care (01) ==
PROVIDERS: PCP Student in an Organized Health Care Education/Training Program
DX: M79.645 Pain in left finger(s) (principal); S67.193A Crushing injury of left middle finger, initial encounter; S67.195A Crushing injury of left ring finger, initial encounter
CPT/HCPCS: 99203

== ENCOUNTER → 2023-11-20 15:21 | Outpatient (BNV) | payer OTHER, SELFPAY | PROVIDERS: Visit Provider Radiology Diagnostic Radiology | DX: M79.642 Pain in left hand (principal) | CPT/HCPCS: 73130 ==

== ENCOUNTER 2023-12-18 22:09 | Emergency (ER) | payer OTHER, SELFPAY ==
--- NOTE | ~2023-12-18 | CT_ITS ---
EXAMINATION: CT ABDOMEN AND PELVIS WITH CONTRAST CLINICAL INFORMATION: Periumbilical pain. COMPARISON: CT abdomen pelvis 12/27/2021. TECHNIQUE: Multidetector volumetric images were obtained from the superior aspect of the liver through the pubic symphysis following administration 85 mL of Omnipaque 350 intravenous contrast. Sagittal and coronal reformatted images were obtained on the technologist's workstation. Oral contrast: No This CT examination was performed using dose optimization techniques as appropriate, variously including the following: *Automated exposure control *Adjustment of mA and/or kV according to patient size (this includes techniques or standardized protocols for targeted exams where dose is matched to indication/reason for exam; i.e. extremities or head) *Use of iterative reconstruction technique DLP: 409 mGy-cm FINDINGS: LUNG BASES: The visualized lung bases are unremarkable. LIVER, GALLBLADDER, AND BILIARY TREE: The liver is normal in size, shape, and attenuation. No focal hepatic lesion or biliary ductal dilatation is present. The gallbladder is unremarkable with no evidence of radiopaque gallstones, gallbladder wall thickening, or obvious pericholecystic inflammatory changes. PANCREAS: Unremarkable. SPLEEN: Unremarkable. ADRENAL GLANDS: Unremarkable. KIDNEYS AND URETERS: A 2 mm calcification is present in the inferior pole of the left. A 1 mm calcification is present in the superior pole the left kidney. Possible punctate 1 mm calcification is noted in the interpolar right renal pelvis (series 4 image 236). A 1 mm calcification is present in close proximity or possibly within the distal right ureter approximately 2.5 cm proximal to the right ureterovesicular junction. Series 4 image 532). Precise visualization of the ureter in this region is obscured by visceral crowding related to close approximation to the adjacent right adnexal structures. No hydronephrosis. No perinephric inflammatory changes. BLADDER: Moderate physiologic distention. GASTROINTESTINAL TRACT: Normal appearance of the appendix. No free intraperitoneal fluid or gas collections. No intestinal dilatation or mural thickening. Normal appearance of the stomach and duodenum. ABDOMINAL WALL: No significant hernia is appreciated. LYMPH NODES: Normal. VASCULAR: Unremarkable. PELVIC VISCERA: Normal appearance of the uterus. No adnexal lesions. OSSEOUS STRUCTURES: No suspicious skeletal lesions. CT/CT abdomen pelvis w IV con IMPRESSION: 1. Normal appendix. No free intraperitoneal fluid or gas collections. 2. A 1 mm calcification is present in close proximity to or possibly within the distal right ureter approximately 2.5 cm proximal to the right ureterovesicular junction. No hydronephrosis. No perinephric inflammatory changes. Visceral crowding with the right ureter in close approximation to the right adnexal structures precludes precise evaluation of the distal right ureter and determination if the calculus noted above is a phlebolith or a distal right ureteral calculus. 3. Two punctate nonobstructing calculi within the left kidney, the largest measuring 2 mm diameter. Single possible punctate nonobstructing calculus within the right kidney. 4. Electronically signed by: Silvestre Russell MD 12/19/2023 02:43 AM EDT RP
[2023-12-18 22:18] VITALS: BP 125/81; PULSE 76; RESP 16; TEMP 36.6; O2SAT 96; BMI 24.6
[2023-12-18 22:33] LABS: MANUAL DIFF FLAG NO
[2023-12-18 22:40] LABS: Basophils Absolute Auto 0.1 X10*3/uL (0.0-0.2); Basophils Percent Auto 0.6 % (0-2); Hematocrit 40.9 % (37.0-47.0); Hemoglobin 14.1 g/dl (12.0-16.0); Imm Gran Abs Auto 0.03 X10*3/uL (0.00-0.03); Imm Gran Pct Auto 0.3 % (0.0-0.4); Lymphocytes Absolute Auto 3.1 X10*3/uL (1.2-4.9); Lymphocytes Percent Auto 30.3 % (20-40); Mean Corpuscular HGB Conc 34.5 g/dl (31.0-35.0); Mean Corpuscular Hemoglobin 29.7 pg (27.0-33.0); Mean Corpuscular Volume 86.3 fL (80.0-98.0); Mean Platelet Volume 9.9 fL (9.4-12.3); Monocytes Percent Auto 9.7 % (2-11); Neutrophils Percent Auto 59.1 % (45-73); Platelet Count 326 X10*3/uL (160-400); Red Blood Count 4.74 X10*6/uL (4.20-5.50); Red Cell Distribution Width 12.9 % (11.0-16.0); White Blood Count 10.2 X10*3/uL (4.8-10.8)
[2023-12-18 22:45] LABS: Anion Gap 10 (12-20)
[2023-12-18 22:50] LABS: Alanine Aminotransferase 35 U/L (0-31); Alkaline Phosphatase 74 U/L (39-117); Aspartate Amino Transferase 24 U/L (5-31); Bilirubin Total 0.2 mg/dL (0.0-1.0); Blood Urea Nitrogen 8 mg/dL (9-16); Carbon Dioxide 22 mmol/L (22-29); Chloride 110 mmol/L (96-108); Creatinine Clr Calc Pharmacy 99.3; Estimated Glomerular Filt Rate > 60; Glucose Random 95 mg/dL (60-115); Lipase 31 U/L (8-78); Potassium 3.9 mmol/L (3.3-5.1); Sodium 138 mmol/L (135-145); Total Protein 7.1 g/dL (6.5-8.0)
[2023-12-18 23:10] LABS: Influenza A PCR NEGATIVE (Negative); Influenza B PCR NEGATIVE (Negative); Resp Syncy Virus RNA Qual PCR NEGATIVE (Negative); SARS COV2 PCR INHOUSE NEGATIVE (Negative)
[2023-12-19 00:02] LABS: Calcium 9.2 mg/dL (8.4-10.2)
--- NOTE | 2023-12-19 01:41 | ED_ITS ---
HPI - Abdominal Pain General Chief Complaint: Abdominal Pain Stated Complaint: abd pain Time Seen by Provider: 12/19/23 01:27 Source: patient Mode of arrival: ambulatory Limitations: no limitations History of Present Illness ED Provider: Dr. Juana Sharp HPI narrative: Patient comes to the emergency room complaining of 1 week of epigastric and periumbilical pain. Patient states that she can not eat because the anything she eats it hurts. Patient has been taking Prilosec twice a day for several months without any improvement. Patient complaining of nausea vomiting and loose stools. Denies fever chills, denies hematuria or dysuria, denies flank pain. Related Data Home Medications ?Medication ?Instructions ?Recorded ?Confirmed clonazepam 1 mg tablet 1 mg PO BID PRN Anxiety 12/13/19 05/29/23 divalproex 500 mg tablet,extended 500 mg PO BID 07/10/20 05/29/23 release 24 hr (Depakote ER) zolpidem 10 mg tablet 1 tab PO BEDTIME PRN Sleep 05/24/21 05/29/23 ascorbic acid (vitamin C) 500 mg 500 mg PO DAILY 03/05/22 05/29/23 tablet (Vitamin C) multivitamin 1 tab PO DAILY 03/05/22 05/29/23 Previous Rx's ?Medication ?Instructions ?Recorded levalbuterol HCl 1.25 mg/3 mL 1.25 mg (3 mL) inhalation Q4H PRN 08/11/22 solution for nebulization for wheezing #540 mL cetirizine 10 mg capsule (Zyrtec) 10 mg PO DAILY PRN allergy 08/23/22 symptoms #14 caps diphenhydramine HCl 25 mg capsule 25 mg PO TID PRN allergy symptoms 08/23/22 (Benadryl) #14 caps levalbuterol tartrate 45 2 puff PO Q4-6H PRN for wheezing 12/27/22 mcg/actuation aerosol inhaler #15 ea fluticasone 250 mcg-salmeterol 50 1 ea PO BID #60 ea 01/10/23 mcg/dose blistr powdr for inhalation (Juvencioxela Inhub) ivabradine 5 mg tablet (Corlanor) 5 mg PO BID #60 tabs 06/08/23 metoprolol succinate 25 mg 25 mg PO DAILY #90 tabs 06/16/23 tablet,extended release 24 hr cyclobenzaprine 5 mg tablet 5 mg PO TID PRN body pain 7 days 09/23/23 #21 tabs omeprazole 40 mg capsule,delayed 40 mg PO DAILY #90 caps 12/19/23 release Allergies Allergy/AdvReac Type Severity Reaction Status Date / Time fluconazole [From Diflucan] Allergy Severe Hives Verified 12/18/23 22:21 magnesium Allergy Unknown Chest Pain Verified 12/18/23 22:21 somatropin [SOMATROPIN] Allergy Unknown UNKNOWN Verified 12/18/23 22:21 amitriptyline [AMITRIPTYLINE] AdvReac Intermediate NAUSEA, Verified 12/18/23 22:21 DIZZINESS albuterol [ALBUTEROL] AdvReac Mild TACHYCARDIA Verified 12/18/23 22:21 esomeprazole [From NEXIUM] AdvReac Mild TACHYCARDIA Verified 12/18/23 22:21 Review of Systems Review of Systems Constitutional : No Weight loss, No Fever, No Chills, No Night Sweats, No Fatigue, No Malaise ENT/Mouth : No Hearing loss, No Ear Pain, No Nasal Congestion, No Sinus Pain, No Hoarseness, No sore throat, No Rhinorrhea, No Swallowing Difficulty Eyes: No Eye Pain, No Swelling, No Redness, No Foreign Body, No Discharge, No Vision Changes Cardiovascular : No Chest Pain, No SOB, No Dyspnea on Exertion, No Orthopnea, No Edema, No Palpitations Respiratory : No Cough, No Sputum, No Wheezing, No Smoke Exposure, No Dyspnea Gastrointestinal : Complaining of nausea vomiting and loose stools, denies constipation, complaining of periumbilical and epigastric pain, no melena Genitourinary : no irregular bleeding, No Dysuria, No Urinary Frequency, No Hematuria, No Urinary Incontinence, No Urgency, No Flank Pain, No Urinary Flow Changes, No Hesitancy Musculoskeletal : No joint pain, No Myalgias, No Joint Swelling Skin : No Skin Lesions, No rash Neuro : No Weakness, No Numbness, No Paresthesias, No Loss of Consciousness, No Dizziness, No Headache Psych : No Anxiety/Panic, No Depression, No SI/HI/AH/VH, No Social Issues, Heme/Lymph: No Bruising, No Bleeding,No Lymphadenopathy Endocrine : No Polyuria, No Polydipsia, No Temperature Intolerance [facility] Past Medical History Medical History Acute hypoxemic respiratory failure Asthma with COPD with exacerbation COVID-19 virus infection Inappropriate sinus tachycardia Asthma-COPD overlap syndrome Kidney stones UTI (urinary tract infection) Subclinical hyperthyroidism Inappropriate sinus node tachycardia POTS (postural orthostatic tachycardia syndrome) Asthma with COPD with exacerbation SVT (supraventricular tachycardia) Family history of COPD (chronic obstructive pulmonary disease) Schizoaffective disorder COPD exacerbation Polycystic ovarian disease Diabetes mellitus Fibromyalgia COPD (chronic obstructive pulmonary disease) Carpal tunnel syndrome History of MRSA infection Bipolar 1 disorder Postural orthostatic tachycardia syndrome Surgical History History of renal stent Hx of lithotripsy Tubal ligation status History of tubal ligation Hx of abdominoplasty Family History Family History Other COPD (chronic obstructive pulmonary disease) Social History Social History (Updated 11/20/23 @ 15:36 by UTE Pratt) Household Members: Children Housing: Apartment Do you presently have visiting nurse or other home services: No Alcohol intake: never Comment: sleeping Patient Tobacco Use Status: Never used Tobacco Second Hand Smoke Exposure: No Advance Directives: No Advance Directives Information Provided: No Patient : No service: No Current occupational status: employed Current occupation: [employer] in [place] / right hand dominant Physical Exam ED Vital Signs: Vital Signs - 24 hr 12/18/23 22:18 12/19/23 01:50 Temperature 97.8 F Pulse Rate 76 Respiratory Rate 16 16 Blood Pressure 125/81 Pulse Oximetry 96 Oxygen Delivery Method Room Air BMI result Body Mass Index 24.6 Const Other: Appearance: Alert. Oriented X3. No acute distress. Eyes: Pupils equal, round and reactive to light. ENT: Pharynx normal. Neck: Normal inspection. Neck supple. No lymph nodes noted. No crepitus CVS: Normal heart rate and rhythm. Pulses normal. Normal S1 and S2 Respiratory: No respiratory distress. Breath sounds normal. No Wheezing. No rales Abdomen: Soft , pain to palpation in epigastric and periumbilical area, no rebound , mild guarding Skin: Skin warm and dry. Normal skin color. Normal skin turgor. Extremities: No lower extremity edema. No Lacerations. No Rash Neuro: Oriented X 3. No motor deficit. No sensory deficit. Moving all extremities. No slurred speech. CN 2 through 12 grossly intact Psych: calm, cooperative, normal affect Course Course Course Narrative: Patient's CT scan pending. Medical Decision Making Medical Decision Making [facility] Narrative: My interpretation of labs: Patient's hematology and chemistry within normal limits, lipase normal, serology negative for flu and RSV -my interpretation of EKG: Normal sinus rhythm, heart rate 72, Mrs. Segment depression or elevation, no T-wave inversion, QTC 427 -my interpretation of labs: White blood cell count within normal limits chemistry does not show any acute abnormality, normal LFTs, normal lipase, negative hCG, urine has a small amount that is leukocyte esterase. However, patient has no UTI symptoms. Antibiotics are not indicated at this time. -CT scan, normal appendix, possible 1 mm calcification in the right ureter 2.5 cm proximal to the right ureteral vesicular junction. It is possible that patient may have passed a kidney stone. However, patient has epigastric pain, not so much flank pain. -patient was giving a GI cocktail. -patient's medication was switched from Prilosec to omeprazole. Patient agrees with plan Differential Diagnosis Differential Diagnoses: The differential diagnosis associated with the presentation includes (Gastritis, peptic ulcer disease, kidney stones) Admission/Observation Consideration of admission/observation: Escalation of care including admission/observation considered (Given patient's level of discomfort, observation was considered) Lab Data [facility] Lab Attestation statement: I reviewed the patient's lab results. 12/18/23 22:28 12/18/23 22:28 Labs: Lab Results 12/18/23 12/19/23 Range/Units 22:28 02:23 WBC 10.2 (4.8-10.8) X10*3/uL RBC 4.74 (4.20-5.50) X10*6/uL Hgb 14.1 (12.0-16.0) g/dl Hct 40.9 (37.0-47.0) % MCV 86.3 (80.0-98.0) fL MCH 29.7 (27.0-33.0) pg MCHC 34.5 (31.0-35.0) g/dl RDW 12.9 (11.0-16.0) % Plt Count 326 (160-400) X10*3/uL MPV 9.9 (9.4-12.3) fL Immature Gran % (Auto) 0.3 (0.0-0.4) % Neut % (Auto) 59.1 (45-73) % Lymph % (Auto) 30.3 (20-40) % [place] % (Auto) 9.7 (2-11) % Eos % (Auto) 0.0 (0-4) % Baso % (Auto) 0.6 (0-2) % Lymph # (Auto) 3.1 (1.2-4.9) X10*3/uL [place] # (Auto) 1.0 (0.1-1.2) X10*3/uL Eos # (Auto) 0.0 (0.0-0.4) X10*3/uL Baso # (Auto) 0.1 (0.0-0.2) X10*3/uL Abs Immat Gran (auto) 0.03 (0.00-0.03) X10*3/uL Absolute Neuts (auto) 6.0 (2.0-8.3) x10*3/uL Absolute Nucleated RBC 0.000 (0.0-0.012) X10*3/uL Nucleated RBC % (auto) 0.0 (0.0-0.2) /100WBC Sodium 138 (135-145) mmol/L Potassium 3.9 (3.3-5.1) mmol/L Chloride 110 H (96-108) mmol/L Carbon Dioxide 22 (22-29) mmol/L Anion Gap 10 L (12-20) BUN 8 L (9-16) mg/dL Creatinine 0.62 (0.5-1.4) mg/dL Estim Creat Clear Calc 99.3 Estimated GFR > 60 Random Glucose 95 (60-115) mg/dL Calcium 9.2 (8.4-10.2) mg/dL Total Bilirubin 0.2 (0.0-1.0) mg/dL AST 24 (5-31) U/L ALT 35 H (0-31) U/L Alkaline Phosphatase 74 (39-117) U/L Total Protein 7.1 (6.5-8.0) g/dL Albumin 4.0 (3.5-5.0) g/dL Lipase 31 (8-78) U/L Beta HCG, Quant < 2 mIU/mL Urine Color Yellow Urine Appearance Clear Urine pH 7.5 (5.0-9.0) Ur Specific Mozelle >= 1.030 H (1.005-1.025) Urine Protein Negative (Neg-Trace) mg/dL Urine Glucose (UA) Negative (Negative) mg/dL Urine Ketones Negative (Negative) mg/dL Urine Blood Negative (Negative) Urine Nitrite Negative (Negative) Ur Leukocyte Esterase Small (1+) H (Negative) Influenza Type A (PCR) NEGATIVE (Negative) Influenza Type B (PCR) NEGATIVE (Negative) RSV RNA Qual (PCR) NEGATIVE (Negative) SARS-CoV-2 RNA (RT-PCR) NEGATIVE (Negative) Independent Interpretation I performed an independent interpretation of an: CT Scan Radiology Impression Discussion of test interpretation with radiology: I have reviewed the radiologist's reading. Radiologist Impression: FINDINGS: LUNG BASES: The visualized lung bases are unremarkable. LIVER, GALLBLADDER, AND BILIARY TREE: The liver is normal in size, shape, and attenuation. No focal hepatic lesion or biliary ductal dilatation is present. The gallbladder is unremarkable with no evidence of radiopaque gallstones, gallbladder wall thickening, or obvious pericholecystic inflammatory changes. PANCREAS: Unremarkable. SPLEEN: Unremarkable. ADRENAL GLANDS: Unremarkable. KIDNEYS AND URETERS: A 2 mm calcification is present in the inferior pole of the left. A 1 mm calcification is present in the superior pole the left kidney. Possible punctate 1 mm calcification is noted in the interpolar right renal pelvis (series 4 image 236). A 1 mm calcification is present in close proximity or possibly within the distal right ureter approximately 2.5 cm proximal to the right ureterovesicular junction. Series 4 image 532). Precise visualization of the ureter in this region is obscured by visceral crowding related to close approximation to the adjacent right adnexal structures. No hydronephrosis. No perinephric inflammatory changes. BLADDER: Moderate physiologic distention. GASTROINTESTINAL TRACT: Normal appearance of the appendix. No free intraperitoneal fluid or gas collections. No intestinal dilatation or mural thickening. Normal appearance of the stomach and duodenum. ABDOMINAL WALL: No significant hernia is appreciated. LYMPH NODES: Normal. VASCULAR: Unremarkable. PELVIC VISCERA: Normal appearance of the uterus. No adnexal lesions. OSSEOUS STRUCTURES: No suspicious skeletal lesions. CT/CT abdomen pelvis w IV con IMPRESSION: 1. Normal appendix. No free intraperitoneal fluid or gas collections. 2. A 1 mm calcification is present in close proximity to or possibly within the distal right ureter approximately 2.5 cm proximal to the right ureterovesicular junction. No hydronephrosis. No perinephric inflammatory changes. Visceral crowding with the right ureter in close approximation to the right adnexal structures precludes precise evaluation of the distal right ureter and determination if the calculus noted above is a phlebolith or a distal right ureteral calculus. 3. Two punctate nonobstructing calculi within the left kidney, the largest measuring 2 mm diameter. Single possible punctate nonobstructing calculus within the right kidney. Medications Administered Discontinued Medications Generic Name Dose Route Start Last Admin Trade Name Freq PRN Reason Stop Dose Admin Famotidine 20 mg 12/19/23 01:33 12/19/23 01:50 Famotidine/Pf 20 Mg/2 Ml Vial IVPUSH 12/19/23 01:34 20 mg ONCE ONE Administration Iohexol 85 ml 12/19/23 02:02 12/19/23 02:02 Iohexol 350 Mg/Ml 100 Ml Infus..Btl IV 12/19/23 02:03 85 ml ONCE ONE Administration Morphine Sulfate 2 mg 12/19/23 01:33 12/19/23 01:50 Morphine Sulfate 2 Mg/Ml Cartridge IVPUSH 12/19/23 01:34 2 mg ONCE ONE Administration Protocol Critical Care Time Critical Care Time Critical Care Time: Yes Total Critical Care Time: 35 Attestation: I have personally provided critical care time. Time includes review of lab data, radiology results, discussion with consultants, and monitoring for potential decompensation. Intervention performed as documented. Discharge Plan Discharge Clinical Impression: Gastritis Patient Disposition: Home, Self-Care Instructions: Gastritis (ED), Diet for Stomach Ulcers and Gastritis (ED) Additional Instructions: Please follow-up with your primary care physician tomorrow. If you have any worsening or new symptoms, please return to the emergency room or call 911 Prescriptions: New omeprazole 40 mg capsule,delayed release(DR/EC) 40 mg PO DAILY Qty: 90 0RF No Action levalbuterol HCl 1.25 mg/3 mL solution for nebulization 1.25 mg inhalation Q4H PRN (Reason: for wheezing) Qty: 540 0RF levalbuterol tartrate 45 mcg/actuation HFA aerosol inhaler 2 puff PO Q4-6H PRN (Reason: for wheezing) Qty: 15 0RF fluticasone propion-salmeterol [Wixela Inhub] 250-50 mcg/dose blister with device 1 ea PO BID Qty: 60 3RF Corlanor 5 mg tablet 5 mg PO BID Qty: 60 11RF Rx Instructions: must administer with a meal/food metoprolol succinate 25 mg tablet extended release 24 hr 25 mg PO DAILY Qty: 90 3RF clonazepam 1 mg tablet 1 mg PO BID PRN (Reason: Anxiety) divalproex [Depakote ER] 500 mg tablet extended release 24 hr 500 mg PO BID multivitamin Tablet 1 tab PO DAILY ascorbic acid (vitamin C) [Vitamin C] 500 mg Tablet 500 mg PO DAILY zolpidem 10 mg tablet 1 tab PO BEDTIME PRN (Reason: Sleep) cyclobenzaprine 5 mg tablet 5 mg PO TID PRN (Reason: body pain) 7 Days Qty: 21 0RF Zyrtec 10 mg capsule 10 mg PO DAILY PRN (Reason: allergy symptoms) Qty: 14 0RF diphenhydramine HCl [Benadryl] 25 mg capsule 25 mg PO TID PRN (Reason: allergy symptoms) Qty: 14 0RF Print Language: Serbian
--- NOTE | 2023-12-19 01:43 | ECG_ITS ---
Test Reason : ABD PAIN Blood Pressure : / mmHG Vent. Rate : 072 BPM Atrial Rate : 072 BPM P-R Int : 130 ms QRS Dur : 082 ms QT Int : 390 ms P-R-T Axes : 020 053 035 degrees QTc Int : 427 ms Normal sinus rhythm Normal ECG When compared with ECG of 27-FEB-2023 22:18, No significant change was found Referred By: Juana Sharp Electronically Signed By:TOM CASTORENA
[2023-12-19 01:50] VITALS: RESP 16
[2023-12-19 01:50] LABS: HCG Quantitative < 2 mIU/mL
[2023-12-19] MEDS: Morphine Sulfate 2 MG/ML CARTRIDGE IVPUSH (01:50)
[2023-12-19] MEDS: Famotidine/PF 20 MG/2 ML VIAL IVPUSH (01:50)
--- NOTE | 2023-12-19 01:54 | PC.NURSE ---
20 G IV line established in R forearm, patient medicated per MAR, call merida in reach, plan of care ongoing.
[2023-12-19] MEDS: iohexoL 350 MG/ML 100 ML INFUS..BTL 85 ML IV (02:02)
--- NOTE | 2023-12-19 02:21 | PC.NURSE ---
CT scan completed, patient returned to ED room.
--- NOTE | 2023-12-19 02:22 | PC.NURSE ---
Urine specimen collected for UA C&S via clean catch, specimen sent to lab for processing.
--- NOTE | 2023-12-19 02:27 | PC.NURSE ---
Patient reports no relief in epigastric pain after being medicated with Morphine 2 mg IV push and Pepcid 20 mg IV push, Dr. Sharp norified, no new orders at this time.
[2023-12-19 02:42] LABS: Appearance Urine Clear; Color Urine Yellow; Glucose Urine UA Negative (Negative); Leukocyte Esterase Urine Small (1+) (Negative); Nitrite Urine Negative (Negative); PH 7.5 (5.0-9.0); Specific Gravity - Urine >= 1.030 (1.005-1.025); UMIC TRIGGER UACC YES; Urine Blood Negative (Negative); Urine Ketones Negative (Negative); Urine Protein Negative (Neg-Trace)
[2023-12-19 03:20] LABS: Bacteria Urine 4+ (None Seen); Hyaline Casts Urine 0-2 /LPF (0-2); RBC Urine 0-2 /HPF (0-2); UACC Culture Trigger YES; WBC Urine 21-50 /HPF (0-5)
[2023-12-19] MEDS: Ketorolac Tromethamine 30 MG/ML VIAL IVPUSH (03:24)
[2023-12-19] MEDS: Magnesium Hydrox/Alum Hydrox 30 ML ORAL.SUSP PO (03:24)
[2023-12-19] MEDS: Lidocaine HCl Viscous 2 % 15 ML SOLUTION MUCOUS MEM (03:24)
[2023-12-19 03:45] VITALS: BP 124/70; PULSE 73; RESP 16; TEMP 36.8; O2SAT 99
== END 2023-12-19 03:46 | disposition home or self-care (01) ==
PROVIDERS: Emergency Provider Emergency Medicine; PCP Student in an Organized Health Care Education/Training Program
DX: K52.9 Noninfective gastroenteritis and colitis, unspecified (principal); N39.0 Urinary tract infection, site not specified; B96.1 Klebsiella pneumoniae [K. pneumoniae] as the cause of diseases classified elsewhere; R10.13 Epigastric pain; Z03.818 Encounter for observation for suspected exposure to other biological agents ruled out
CPT/HCPCS: 0241U; 74177; 80053; 81001; 83690; 84702; 85025; 87086; 87088; 87186; 93005; 96374; 96375; 99284; 99285; J1885; J2270; Q9967

== ENCOUNTER → 2023-12-19 01:43 | Outpatient (BNV) | payer OTHER, SELFPAY | PROVIDERS: Emergency Provider Emergency Medicine; PCP Student in an Organized Health Care Education/Training Program; Visit Provider Internal Medicine | DX: R10.9 Unspecified abdominal pain (principal) | CPT/HCPCS: 93010 ==

== ENCOUNTER 2024-02-12 16:02 | Outpatient (REF) | payer OTHER, SELFPAY ==
[2024-02-12 18:46] LABS: CT PCR NOT DETECTED (Not Detect.); NG PCR NOT DETECTED (Not Detect.)
[2024-02-15 14:01] LABS: Syphilis Screen Nonreactive (Nonreactive)
[2024-02-15 14:39] LABS: HIV AB/AG Nonreactive (Nonreactive); HIV Num 1 0.06 S/CO (0.00-0.99); ~HepC Num1 0.07 S/CO (0.00-0.79); ~Hepatitis C Antibody Nonreactive (Nonreactive)
== END 2024-02-12 16:03 | disposition home or self-care (01) ==
LOC: HO.LAB 16:02
PROVIDERS: PCP Student in an Organized Health Care Education/Training Program; Visit Provider Internal Medicine Infectious Disease
DX: Z20.6 Contact with and (suspected) exposure to human immunodeficiency virus [HIV] (principal)
CPT/HCPCS: 86780; 86803; 87389; 87491; 87591

== ENCOUNTER 2024-04-02 09:52 | Emergency (ER) | payer OTHER, SELFPAY ==
[2024-04-02] VITALS (9 sets, daily range): BP systolic 91–140; BP diastolic 47–80; PULSE 68–155; RESP 16–28; TEMP 36.8–37.7; O2SAT 95–99; BMI 24.6
--- NOTE | ~2024-04-02 | XR_ITS ---
EXAMINATION: XR CHEST CLINICAL INFORMATION: cough COMPARISON: 02/27/2023. Older priors. TECHNIQUE: 2 views of the chest were obtained. FINDINGS: The cardiac, hilar, and mediastinal contours are normal. The lungs are clear bilaterally. There is no pneumothorax or pleural effusion. There is no focal osseous or soft tissue abnormality. XR/XR chest 2V IMPRESSION: Normal chest. Electronically signed by: Adilson Littlejohn MD 04/02/2024 11:08 AM NORRIS
--- NOTE | ~2024-04-02 | CT_ITS ---
CLINICAL HISTORY: dyspnea, tachycardia CT angiography chest with contrast. 3D Postprocessing. Comparison: CT - CTA CHEST WOW RECON [id number] - 12/18/13 17:36 EDT Findings: The prior CT report is not available for review. The heart size is normal. RV/LV ratio is normal. Unremarkable thoracic aorta and great vessels. No aneurysm. No acute pulmonary embolus. The visualized thyroid and mediastinum are unremarkable. There is opacity of the bilateral lower lobe. The upper abdomen is unremarkable. No acute fractures. IMPRESSION: No pulmonary emboli. Opacity of the bilateral lower lobes could represent atelectatic change or pneumonia. This document has been electronically signed by: Moises Wong MD on 04/02/2024 18:19:16
--- NOTE | 2024-04-02 10:06 | ECG_ITS ---
Test Reason : TACHY/SOB Blood Pressure : */* mmHG Vent. Rate : 153 BPM Atrial Rate : * BPM P-R Int : * ms QRS Dur : 72 ms QT Int : 324 ms P-R-T Axes : * 44 56 degrees QTcB Int : 517 ms Poor data quality Sinus tachycardia Nonspecific T wave abnormality Abnormal ECG When compared with ECG of 19-Dec-2023 01:41, Vent. rate has increased by 81 bpm Nonspecific T wave abnormality, worse in Inferior leads Nonspecific T wave abnormality now evident in Lateral leads Referred By: Generic ED Physician Electronically Signed By: ROM WILKINS MD
[2024-04-02 10:32] LABS: MANUAL DIFF FLAG NO
[2024-04-02 10:34] LABS: Basophils Absolute Auto 0.1 X10*3/uL (0.0-0.2); Basophils Percent Auto 0.5 % (0-2); Hematocrit 40.3 % (37.0-47.0); Hemoglobin 13.5 g/dl (12.0-16.0); Imm Gran Abs Auto 0.04 X10*3/uL (0.00-0.03); Imm Gran Pct Auto 0.4 % (0.0-0.4); Lymphocytes Absolute Auto 0.3 X10*3/uL (1.2-4.9); Lymphocytes Percent Auto 2.6 % (20-40); Mean Corpuscular HGB Conc 33.5 g/dl (31.0-35.0); Mean Corpuscular Hemoglobin 28.4 pg (27.0-33.0); Mean Corpuscular Volume 84.8 fL (80.0-98.0); Mean Platelet Volume 10.2 fL (9.4-12.3); Monocytes Percent Auto 10.1 % (2-11); Neutrophils Absolute Auto 8.3 x10*3/uL (2.0-8.3); Neutrophils Percent Auto 86.4 % (45-73); Platelet Count 288 X10*3/uL (160-400); Red Blood Count 4.75 X10*6/uL (4.20-5.50); Red Cell Distribution Width 12.6 % (11.0-16.0); White Blood Count 9.6 X10*3/uL (4.8-10.8)
[2024-04-02 10:51] LABS: Alanine Aminotransferase 19 U/L (0-31); Albumin Level 4.3 g/dL (3.5-5.0); Alkaline Phosphatase 67 U/L (39-117); Anion Gap 13 (12-20); Aspartate Amino Transferase 22 U/L (5-31); Bilirubin Total 0.2 mg/dL (0.0-1.0); Blood Urea Nitrogen 8 mg/dL (9-16); Calcium 9.2 mg/dL (8.4-10.2); Carbon Dioxide 19 mmol/L (22-29); Chloride 109 mmol/L (96-108); Creatinine Clr Calc Pharmacy 89.3; Estimated Glomerular Filt Rate > 60; Glucose Random 105 mg/dL (60-115); Potassium 3.8 mmol/L (3.3-5.1); Sodium 137 mmol/L (135-145); Total Protein 8.1 g/dL (6.5-8.0)
[2024-04-02 11:14] LABS: Influenza A PCR POSITIVE (Negative); Influenza B PCR NEGATIVE (Negative); Resp Syncy Virus RNA Qual PCR NEGATIVE (Negative); SARS COV2 PCR INHOUSE NEGATIVE (Negative)
--- NOTE | 2024-04-02 13:12 | ED.GENADULT ---
HPI - General Adult General Chief complaint: Dyspnea Stated complaint: SOB Time Seen by Provider: 04/02/24 13:37 Source: patient Mode of arrival: ambulatory Limitations: no limitations History of Present Illness HPI narrative: This is a 38-year-old woman with a past medical history of COPD-asthma overlap, SVT, and diet-controlled diabetes, pots syndrome, migraines and subclinical hypothyroidism who presents for evaluation of dyspnea. Patient states that she started getting sick 1 day prior to presentation. Patient reports associated subjective fevers, myalgias, headache dry cough. She states she has been using her albuterol inhaler or nebulizer approximately every 4 hours without relief of her symptoms. Patient states taking no Tylenol or ibuprofen today. Patient states no chest pain or abdominal pain. She states no GI or symptoms. She states no trauma. She states no loss of consciousness. Related Data Home Medications ?Medication ?Instructions ?Recorded ?Confirmed clonazepam 1 mg tablet 1 mg PO BID PRN Anxiety 12/13/19 05/29/23 divalproex 500 mg tablet,extended 500 mg PO BID 07/10/20 05/29/23 release 24 hr (Depakote ER) zolpidem 10 mg tablet 1 tab PO BEDTIME PRN Sleep 05/24/21 05/29/23 ascorbic acid (vitamin C) 500 mg 500 mg PO DAILY 03/05/22 05/29/23 tablet (Vitamin C) multivitamin 1 tab PO DAILY 03/05/22 05/29/23 Previous Rx's ?Medication ?Instructions ?Recorded levalbuterol HCl 1.25 mg/3 mL 1.25 mg (3 mL) inhalation Q4H PRN 08/11/22 solution for nebulization for wheezing #540 mL cetirizine 10 mg capsule (Zyrtec) 10 mg PO DAILY PRN allergy 08/23/22 symptoms #14 caps diphenhydramine HCl 25 mg capsule 25 mg PO TID PRN allergy symptoms 08/23/22 (Benadryl) #14 caps levalbuterol tartrate 45 2 puff PO Q4-6H PRN for wheezing 12/27/22 mcg/actuation aerosol inhaler #15 ea fluticasone 250 mcg-salmeterol 50 1 ea PO BID #60 ea 01/10/23 mcg/dose blistr powdr for inhalation (Wixela Inhub) ivabradine 5 mg tablet (Corlanor) 5 mg PO BID #60 tabs 06/08/23 metoprolol succinate 25 mg 25 mg PO DAILY #90 tabs 06/16/23 tablet,extended release 24 hr cyclobenzaprine 5 mg tablet 5 mg PO TID PRN body pain 7 days 09/23/23 #21 tabs omeprazole 40 mg capsule,delayed 40 mg PO DAILY #90 caps 12/19/23 release cefuroxime axetil 250 mg tablet 250 mg PO BID #10 tabs 12/23/23 oseltamivir 75 mg capsule (Tamiflu) 75 mg PO BID 5 days #10 caps 04/02/24 prednisone 50 mg tablet 50 mg PO DAILY 5 days #5 tabs 04/02/24 Allergies Allergy/AdvReac Type Severity Reaction Status Date / Time fluconazole [From Diflucan] Allergy Severe Hives Verified 04/02/24 10:03 magnesium Allergy Unknown Chest Pain Verified 04/02/24 10:03 somatropin [SOMATROPIN] Allergy Unknown UNKNOWN Verified 04/02/24 10:03 amitriptyline [AMITRIPTYLINE] AdvReac Intermediate NAUSEA, Verified 04/02/24 10:03 DIZZINESS albuterol [ALBUTEROL] AdvReac Mild TACHYCARDIA Verified 04/02/24 10:03 esomeprazole [From NEXIUM] AdvReac Mild TACHYCARDIA Verified 04/02/24 10:03 Review of Systems Review of Systems: ROS as per HPI [facility] Past Medical History Medical History Acute hypoxemic respiratory failure Asthma with COPD with exacerbation COVID-19 virus infection Inappropriate sinus tachycardia Asthma-COPD overlap syndrome Kidney stones UTI (urinary tract infection) Subclinical hyperthyroidism Inappropriate sinus node tachycardia POTS (postural orthostatic tachycardia syndrome) Asthma with COPD with exacerbation SVT (supraventricular tachycardia) Family history of COPD (chronic obstructive pulmonary disease) Schizoaffective disorder COPD exacerbation Polycystic ovarian disease Diabetes mellitus Fibromyalgia COPD (chronic obstructive pulmonary disease) Carpal tunnel syndrome History of MRSA infection Bipolar 1 disorder Postural orthostatic tachycardia syndrome Surgical History History of renal stent Hx of lithotripsy Tubal ligation status History of tubal ligation Hx of abdominoplasty Family History Family History Other COPD (chronic obstructive pulmonary disease) Social History Social History (Updated 11/20/23 @ 15:36 by UTE Pratt) Household Members: Children Housing: Apartment Do you presently have visiting nurse or other home services: No Alcohol intake: current Alcohol intake frequency: holidays/special occasions only Comment: sleeping Patient Tobacco Use Status: Never used Tobacco Smoked in Last 30 Days: No Second Hand Smoke Exposure: No Use of substances other than those prescribed or required for medical reasons: No Advance Directives: No Advance Directives Information Provided: Yes Do you have a plan to hurt others: No Plan Patient : No service: No Current occupational status: employed Current occupation: [employer] / right hand dominant Physical Exam ED Vital Signs: Vital Signs - 24 hr 04/02/24 10:02 04/02/24 12:43 04/02/24 13:23 Temperature 99.9 F 98.7 F Pulse Rate 130 H 130 H 68 Respiratory Rate 20 20 22 H Blood Pressure 140/80 H Pulse Oximetry 99 99 Oxygen Delivery Method Room Air Room Air Oxygen Flow Rate 04/02/24 13:27 04/02/24 14:09 04/02/24 14:49 Temperature 98.5 F Pulse Rate 128 H 155 H 153 H Respiratory Rate 28 H 24 H Blood Pressure 119/76 100/48 L Pulse Oximetry 99 98 Oxygen Delivery Method Aerosol Mask Room Air Room Air Oxygen Flow Rate 100 04/02/24 15:49 04/02/24 18:31 04/02/24 19:10 Temperature 99.1 F 98.3 F 98.3 F Pulse Rate 125 H 106 H 106 H Respiratory Rate 16 16 16 Blood Pressure 99/48 L 91/47 L 91/47 L Pulse Oximetry 96 96 96 Oxygen Delivery Method Room Air Room Air Room Air Oxygen Flow Rate BMI result Body Mass Index 24.6 Gen: NAD, AOx3 HEENT: NCAT, EOMI, normal conjunctiva CV: Tachycardic rate, regular rhythm Pulm: Few scattered expiratory wheezes, no respiratory distress GI: Soft, NTND, no rebound, guarding or rigidity Neuro: Grossly non focal Course Course Course Narrative: RME: Patient presents to the ED for shortness of breath. Patient positive flu. Patient is in waiting room. Patient re-evaluated found to be tachycardic. Patient has SVT. Spoke with charge nurse patient will be brought back to the room. Bronchodilators ordered lungs are still tight. Medications Administered Discontinued Medications Generic Name Dose Route Start Last Admin Trade Name Mae PRN Reason Stop Dose Admin Acetaminophen 975 mg 04/02/24 13:50 04/02/24 14:08 Acetaminophen 325 Mg Tablet PO 04/02/24 13:51 975 mg ONCE ONE Administration Levalbuterol HCl 3.75 mg/ 0 mg 04/02/24 13:02 04/02/24 13:21 Ipratropium Josephine 0.5 mg INHALE 04/02/24 13:03 1 dose ONCE ONE Administration Sodium Chloride 1,000 mls @ 999 mls/hr 04/02/24 13:45 04/02/24 15:58 Ns IV 04/02/24 14:45 Infused .Q1H1M MAEVE Infusion Sodium Chloride 1,000 mls @ 999 mls/hr 04/02/24 14:00 04/02/24 15:59 Ns IV 04/02/24 15:00 Infused .Q1H1M MAEVE Infusion Iohexol 100 ml 04/02/24 17:45 04/02/24 17:45 Iohexol 350 Mg/Ml 100 Ml Infus..Btl IV 04/02/24 17:46 85 ml ONCE ONE Administration Ketorolac Tromethamine 15 mg 04/02/24 13:50 04/02/24 14:09 Ketorolac Tromethamine 15 Mg/Ml Vial IVPUSH 04/02/24 13:51 15 mg ONCE ONE Administration Lorazepam 0.5 mg 04/02/24 13:52 04/02/24 14:09 Lorazepam 2 Mg/Ml Vial IVPUSH 04/02/24 13:53 0.5 mg ONCE ONE Administration Methylprednisolone Sodium Succinate 125 mg 04/02/24 13:39 04/02/24 14:08 Methylprednisolone Sod Succ 125 Mg/2 Ml Vial IVPUSH 04/02/24 13:40 125 mg ONCE ONE Administration Oseltamivir Phosphate 75 mg 04/02/24 13:39 04/02/24 14:09 Oseltamivir Phosphate 75 Mg Capsule PO 04/02/24 13:40 75 mg ONCE ONE Administration Medical Decision Making Medical Decision Making MDM Narrative: Differential diagnosis includes, but is not limited to viral URI, asthma exacerbation, pneumonia, pneumothorax, pulmonary embolism. Patient is afebrile and hemodynamically stable on room air albeit she is tachycardic. Exam is overall reassuring. She is quite tachycardic a few scattered expiratory wheezes. I do suspect a component of anxiety as well as recent use of bronchodilators/beta agonist contributing to patient's tachycardia. The patient does not have any hypoxia. I independently reviewed and interpreted patient's labs, EKG and chest x-ray below. EKG demonstrates no cardiac arrhythmias such as supraventricular tachycardia or otherwise. Patient is found to be influenza positive and given 1 day of symptoms with high-risk history of obstructive lung disease patient is provided Tamiflu. She was also treated supportively with Solu-Medrol, Toradol, Tylenol and IV fluids. She was provided nebulized bronchodilators. On re-examination, patient is well-appearing and in no acute distress. ?Patient states symptoms have significantly improved. ?There is no indication for further emergent evaluation in this otherwise well-appearing patient as above. ?Patient is provided written and verbal instructions, educational materials, recommendations for outpatient follow-up, prescription for Tamiflu and prednisone, strict return precautions and teach back is performed. ?Patient states understanding and agreement with plan of care. ?Patient is discharged home in stable and improved condition. Admission/Observation Consideration of admission/observation: Escalation of care including admission/observation considered Lab Data MDM Lab Attestation statement: I reviewed the patient's lab results. I independently reviewed and interpreted patient's labs including CBC, metabolic panel, which are benign and reassuring. Influenza B, COVID-19 and RSV. Influenza A positive. 04/02/24 16:19 04/02/24 16:19 Labs: Lab Results 04/02/24 04/02/24 Range/Units 10:27 16:19 WBC 9.6 9.0 (4.8-10.8) X10*3/uL RBC 4.75 4.22 (4.20-5.50) X10*6/uL Hgb 13.5 12.2 (12.0-16.0) g/dl Hct 40.3 36.0 L (37.0-47.0) % MCV 84.8 85.3 (80.0-98.0) fL MCH 28.4 28.9 (27.0-33.0) pg MCHC 33.5 33.9 (31.0-35.0) g/dl RDW 12.6 12.7 (11.0-16.0) % Plt Count 288 271 (160-400) X10*3/uL MPV 10.2 10.2 (9.4-12.3) fL Immature Gran % (Auto) 0.4 Cancelled (0.0-0.4) % Neut % (Auto) 86.4 H Cancelled (45-73) % Lymph % (Auto) 2.6 L Cancelled (20-40) % Morrow % (Auto) 10.1 Cancelled (2-11) % Eos % (Auto) 0.0 Cancelled (0-4) % Baso % (Auto) 0.5 Cancelled (0-2) % Lymph # (Auto) 0.3 L Cancelled (1.2-4.9) X10*3/uL Morrow # (Auto) 1.0 Cancelled (0.1-1.2) X10*3/uL Eos # (Auto) 0.0 Cancelled (0.0-0.4) X10*3/uL Baso # (Auto) 0.1 Cancelled (0.0-0.2) X10*3/uL Abs Immat Gran (auto) 0.04 H Cancelled (0.00-0.03) X10*3/uL Absolute Neuts (auto) 8.3 Cancelled (2.0-8.3) x10*3/uL Absolute Nucleated RBC 0.000 0.000 (0.0-0.012) X10*3/uL Nucleated RBC % (auto) 0.0 0.0 (0.0-0.2) /100WBC Neutrophils % (Manual) 80 H (45-73) % Band Neutrophils % 17 H (3-5) % Lymphocytes % (Manual) 1 L (20-40) % Monocytes % (Manual) 1 L (2-11) % Metamyelocytes % 1 % Abs Neuts (Manual) 8.7 H (2.0-8.3) X10*3/uL Lymphocytes # (Manual) 0.1 L (1.2-4.9) X10*3/uL Monocytes # (Manual) 0.1 (0.1-1.2) X10*3/uL Metamyelocytes # 0.1 X10*3/uL Platelet Estimate NORMAL (NORMAL) Plt Morphology Comment NORMAL RBC Morphology NORMAL Smear Tech's Comments MANUAL DIFF Sodium 137 138 (135-145) mmol/L Potassium 3.8 3.3 (3.3-5.1) mmol/L Chloride 109 H 111 H (96-108) mmol/L Carbon Dioxide 19 L 17 L (22-29) mmol/L Anion Gap 13 13 (12-20) BUN 8 L 6 L (9-16) mg/dL Creatinine 0.69 0.73 (0.5-1.4) mg/dL Estim Creat Clear Calc 89.3 84.3 Estimated GFR > 60 > 60 Random Glucose 105 118 H (60-115) mg/dL Calcium 9.2 7.8 L D (8.4-10.2) mg/dL Magnesium 1.9 (1.6-2.6) mg/dL Total Bilirubin 0.2 (0.0-1.0) mg/dL AST 22 (5-31) U/L ALT 19 (0-31) U/L Alkaline Phosphatase 67 (39-117) U/L Total Protein 8.1 H (6.5-8.0) g/dL Albumin 4.3 (3.5-5.0) g/dL Influenza Type A (PCR) POSITIVE A (Negative) Influenza Type B (PCR) NEGATIVE (Negative) RSV RNA Qual (PCR) NEGATIVE (Negative) SARS-CoV-2 RNA (RT-PCR) NEGATIVE (Negative) Independent Interpretation I performed an independent interpretation of an: EKG, Plain X-Ray and CT Scan Interpretation: I independently reviewed and interpreted the patient's chest x-ray, which demonstrates no focal consolidation, pleural effusion or pneumothorax. I reviewed and interpreted the patient's EKG, which demonstrates significant baseline artifact in leads V4-V6, sinus tachycardia 153 beats per minute, QRS 72, QTC 517, no STEMI irritant I independently reviewed and interpreted the patient's 2nd and 3rd EKG. Second EKG demonstrates sinus tachycardia active 69 beats per minute, MS 1 punch complex QRS 76, QTC 49, no STEMI. Third EKG demonstrates a sinus tachycardia at 170 beats per minute, MS 120, QRS 78, QTC 480, no STEMI. Per my interpretation CT imaging demonstrates no central pulmonary embolism or focal consolidation. Radiology Impression Discussion of test interpretation with radiology: I have reviewed the radiologist's reading. Radiologist Impression: XR/XR chest 2V IMPRESSION: Normal chest. Electronically signed by: Adilson Littlejohn MD 04/02/2024 11:08 AM EST Dictated By: Adilson Littlejohn MD Signed By: <Electronically signed by Adilson Littlejohn MD in [place]> 04/02/[address] imaging as below. Given the short duration of symptoms and source of infection (i.e. 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 IMPRESSION: No pulmonary emboli. Opacity of the bilateral lower lobes could represent atelectatic change or pneumonia. This document has been electronically signed by: Moises Wong MD on 04/02/2024 18:19:16 Dictated By: Moises Wong MD Signed By: <Electronically signed by Moises Wong MD in [place]> 04/02/24 1820 Discharge Plan Discharge Clinical Impression: Influenza, Asthma Patient Disposition: Home, Self-Care Instructions: Influenza (ED) Additional Instructions: You were seen and evaluated in the emergency room. You were found to have influenza. You were given Tamiflu. You were also found to have an asthma exacerbation and treated with steroids and breathing treatments. Please continue monitoring for fever at home. Please take up to 1000 mg Tylenol every 8 hours as needed for pain or fever. You may take 600 mg ibuprofen with food and water every 6 hours for additional pain/fever relief. Please stay hydrated by drinking at least 8 cups of water. You might consider a Gatorade or Pedialyte as well. You were given a prescription for Tamiflu and prednisone. Please take as directed and until completed Please use 4 puffs of albuterol or 1-2 vials of your nebulized albuterol every 4 hours for the next 24 hours. After 24 hours, you may decrease this to 4 puffs of albuterol or 1-2 vials of your nebulized albuterol every 4 hours NEEDED. If after 24 hours you continue to need treatments every 4 hours, this is okay you may continue doing so and eventually slowly decrease your use of albuterol. Follow-up with your primary care doctor within the next week. Your CT scan was overall reassuring and showed no evidence of a blood clot in your lungs or convincing evidence of pneumonia. Please continue to monitor her symptoms closely and return to the emergency room with any new concerns or symptoms. He should begin to feel better over the next several days. Prescriptions: New prednisone 50 mg tablet 50 mg PO DAILY 5 Days Qty: 5 0RF oseltamivir [Tamiflu] 75 mg capsule 75 mg PO BID 5 Days Qty: 10 0RF No Action levalbuterol HCl 1.25 mg/3 mL solution for nebulization 1.25 mg inhalation Q4H PRN (Reason: for wheezing) Qty: 540 0RF levalbuterol tartrate 45 mcg/actuation HFA aerosol inhaler 2 puff PO Q4-6H PRN (Reason: for wheezing) Qty: 15 0RF fluticasone propion-salmeterol [Wixela Inhub] 250-50 mcg/dose blister with device 1 ea PO BID Qty: 60 3RF Corlanor 5 mg tablet 5 mg PO BID Qty: 60 11RF Rx Instructions: must administer with a meal/food metoprolol succinate 25 mg tablet extended release 24 hr 25 mg PO DAILY Qty: 90 3RF clonazepam 1 mg tablet 1 mg PO BID PRN (Reason: Anxiety) divalproex [Depakote ER] 500 mg tablet extended release 24 hr 500 mg PO BID multivitamin Tablet 1 tab PO DAILY ascorbic acid (vitamin C) [Vitamin C] 500 mg Tablet 500 mg PO DAILY zolpidem 10 mg tablet 1 tab PO BEDTIME PRN (Reason: Sleep) cyclobenzaprine 5 mg tablet 5 mg PO TID PRN (Reason: body pain) 7 Days Qty: 21 0RF omeprazole 40 mg capsule,delayed release(DR/EC) 40 mg PO DAILY Qty: 90 0RF cefuroxime axetil 250 mg tablet 250 mg PO BID Qty: 10 0RF Zyrtec 10 mg capsule 10 mg PO DAILY PRN (Reason: allergy symptoms) Qty: 14 0RF diphenhydramine HCl [Benadryl] 25 mg capsule 25 mg PO TID PRN (Reason: allergy symptoms) Qty: 14 0RF Stand Alone Forms: Work/School Release Interventions: ED Discharge Assessment Last Done: 04/02/24 19:10 Discharge Date/Time: 04/02/24 19:14 Print Language: Polish
[2024-04-02] MEDS: levalbuterol HCL 3.75 MG, Ipratropium Bromide 0.5 MG INHALE (13:21)
--- NOTE | 2024-04-02 13:43 | ECG_ITS ---
Test Reason : tachy Blood Pressure : */* mmHG Vent. Rate : 169 BPM Atrial Rate : 169 BPM P-R Int : 120 ms QRS Dur : 76 ms QT Int : 292 ms P-R-T Axes : 113 138 128 degrees QTcB Int : 489 ms Suspect limb lead reversal, interpretation assumes no reversal Sinus tachycardia Left posterior fascicular block Nonspecific ST and T wave abnormality Abnormal ECG When compared with ECG of 02-Apr-2024 10:18, Premature ventricular complexes are no longer Present Left posterior fascicular block is now Present Non-specific change in ST segment in Lateral leads Referred By: Domenico Caballero Electronically Signed By:
--- OUTSIDE RECORDS SUMMARY | 2024-04-02 13:58 | XMS_ITS | Encounter Summary ---
Author Organization [employer] Address [address] [place] [address] [address] [place] [address] Care Team Providers Care Director Of Strategic Initiatives Name Role Phone Kelly Hanley MD Primary Care Pro vider Encounter Details Date Type Department Care Team (Late st Contact Info) Description 04/02/2024 Orders Only GENERIC EXTERNAL DATA DEPARTMENT Provider, Generic External Data Social History Tobacco Use Types Packs/Day Years Used Date Smoking Tobacco: Never Passive Smoke Exposure: Never Smokeless Tobacco: Never Alcohol Use Standard Drinks/Week Comments Yes 0 (1 standard drink = 0.6 oz pur e alcohol) social Depression Answer Date Recorded Patient Health Questionnaire-9 Score 16 09/05/2022 Housing Stability Answer Date Recorded What is your housing situation today? I have hannah bynum 11/27/[address] you li ve. Do you have problems with any of the following? Mold 11/27/2022 Food Insecurity Answer Date Recorded Within the past 12 months, y ou worried that your food would run out before you got money to buy more: Never True 12/14/2022 Within the past 12 months,th e food you bought just didn't last and you didn't have enough money to get more: Never True Transportation Answer Date Recorded In the past 12 months, has l ack of transportation kept you from medical appts, meetings, work or from getting things needed for daily living? No 12/14/2022 Utilities Answer Date Recorded In the past 12 months, has t he electric, gas, oil or water company threatened to shut off services in your home? No 12/14/2022 Depression Answer Date Recorded Patient Health Questionnaire-2 Score 5 09/05/2022 Comments Unknown Sex and Gender Information Value Date Recorded Sex Assigned at Female 12/20/2021 10:19 AM EDT Legal Sex Female 10:19 AM EDT Gender Identity Female 12/20/2021 10:19 AM EDT Sexual Orientation Straight 12/20/2021 10 :19 AM EDT documented as of this encounter Plan of Treatment Upcoming Encounters Date Type Department Care Team (Late st Contact Info) Description 06/04/2024 1:30 PM EDT Office Visit [facility] [address] [place] [address] Kelly Hanley MD [address] [place] [address] documented as of this encounter Procedures Procedure Name Priority Date/Time Associated Diagnosis Comments XR CHEST 2 VIEWS Routine 04/02/2024 10:5 0 AM EST SARS COV2/INFLUENZA A/B AND RSV RNA QL NAAT Routine 04/02/2024 10:27 AM EST CBC WITH AUTO DIFFERENTIAL Routine 04/02/2024 10:27 AM EST COMPREHENSIVE METABOLIC PANEL Routine 04/02/2024 10:27 AM EST documented in this encounter Results * XR Chest 2 Views (04/02/2024 10:50 AM EST) Anatomical Region Laterality Modality Chest Radiographic Latanya ging 04/02/2024 10:5 0 AM EST Narrative 04/02/2024 11:10 AM EST ? [facility] ?[address] ?[place] [address] ?XRay Report ? Signed ? Patient: Townsend,Guillermina ?MR#: [id number] ? : 1985 ?Acct:[id number] ? Age/Sex: 38 / F ?ADM Date: 02/11/25 ? Loc: HO.ED ? Attending Dr: ? Ordering Physician: Generic ED Physician ?? Date of Service: 04/02/24 ?? Procedure(s): XR chest 2V ?? Accession Number(s): [id number] ? cc: Generic ED Physician; Kelly Hanley MD ? EXAMINATION: ?? XR CHEST ? CLINICAL INFORMATION: ?? cough ? COMPARISON: ?? 02/27/2023. ??Older priors. ? TECHNIQUE: ?? 2 views of the chest were obtained. ? FINDINGS: ?? The cardiac, hilar, and mediastinal contours are normal. ? The lungs are clear bilaterally. There is no pneumothorax or pleural ?? effusion. ? There is no focal osseous or soft tissue abnormality. ? XR/XR chest 2V ?? IMPRESSION: ?? Normal chest. ? Electronically signed by: ??Adilson Littlejohn MD ??04/02/2024 11:08 AM EST RP ? Dictated By: ?Adilson Littlejohn MD ? Signed By: ?<Electronically signed by Adilson Littlejohn MD in OV> ?04/02/248 ? DD/ 1050 ? TD/TT: 04/02/24 1058 ? School Counsellor: ? Procedure Note Bridger, Image - 04/02/[address] [address] XRay Report Signed Patient: Guillermina TownsendMR#: [id number] : 1985Acct:[id number] Age/Sex: 38 / FADM Date: 04/02/24 Loc: .ED Attending Dr: Ordering Physician: Alverto ED Physician Date of Service: 04/02/24 Procedure(s): XR chest 2V Accession Number(s): [id number] cc: Generic ED Physician; Kelly Hanley MD EXAMINATION: XR CHEST CLINICAL INFORMATION: cough COMPARISON: 02/27/2023. Older priors. TECHNIQUE: 2 views of the chest were obtained. FINDINGS: The cardiac, hilar, and mediastinal contours are normal. The lungs are clear bilaterally. There is no pneumothorax or pleural effusion. There is no focal osseous or soft tissue abnormality. XR/XR chest 2V IMPRESSION: Normal chest. Electronically signed by: Adilson Littlejohn MD 04/02/2024 11:08 AM [facility] Dictated By: Adilson Littlejohn MD Signed By: <Electronically signed by Adilson Littlejohn MD in OV> 04/02/24 1108 DD/ 1050 TD/TT: 04/02/24 1058 School Counsellor: [facility] External Provider IMG XR PROCEDURES Final Result * (ABNORMAL) SARS-CoV-2 RNA, Influenza A/B, and RSV RNA, Ql NAAT (04/02/2024 10:27 AM EST) Pathologist [facility] Influenza A PCR POSITIVE(A) Negative [facility] Influenza B PCR NEGATIVE Negative [facility] Resp Syncy Virus RNA Qual PCR NEGATIVE Negative [facility] SARS COV2 PCR NEGATIVE Negative [facility] Comment:All test results mus t be correlated with clinical findings.Negative results do not preclude SARS-CoV2, influenza Avirus, influenza B virus and/or RSV infectionand should not be used as the sole basis for treatment orother patient management decisions. Negative results must becombined with clinical observations, patient history, andepidemiological information.This test has not been evaluated for monitoring treatment ofinfection.This test has been authorized by the FDA under an EmergencyUse Authorization (EUA) for use by authorized laboratories.Testing performed on the [employer] GeneXpert utilizingreal-time RT-PCR.All SARS CoV2 and positive influenza A/B results arereported to [facility]. 04/02/2024 10:2 7 AM EST 04/02/2024 10:31 AM EST Generic External Data Provider LAB MICROBIOLOGY - GENERAL ORDERABLES Final Result [facility] [address] [place] [address] [phone] * (ABNORMAL) Comprehensive Metabolic Panel (04/02/2024 10:27 AM EST) Pathologist [facility] Sodium 137 135 - 145 mmol/L [facility] Potassium 3.8 3.3 - 5.1 mmol/L [facility] Chloride 109(H) 96 - 108 mmol/L [facility] Carbon Dioxide 19(L) 22 - 29 mmol/L [facility] Anion Gap 13 12 - 20 [facility] Urea Nitrogen (BUN) 8(L) 9 - 16 mg/dL [facility] Creatinine, Serum 0.69 0.5 - 1.4 mg/dL [facility] Creatinine Clr Calc Pharmacy 89.3 [facility] Comment:Provided height and weight: 152.4 cm,57.153 kg.eGFR (calculated from the MDRD study equation) and eCrCl(calculated from the Cockcroft-Gault equation) are based ondifferent parameters and may not yield comparable results.If eCrCl result is absurd, please check patient'sheight/weight. Estimated Glomerular Filt Rate >60 [facility] Comment:Chronic Kidney Disea se: Estimated GFR < 60 mL/min/1.75t9Yotdbm Kidney Disease: Estimated GFR < 15 mL/min/1.73m2 Glucose 105 60 - 115 mg/dL [facility] Calcium 9.2 8.4 - 10.2 mg/dL [facility] Bilirubin, Total 0.2 0.0 - 1.0 mg/dL [facility] Aspartate Amino Transferase 22 5 - 31 U/L [facility] Alanine Aminotransferase 19 0 - 31 U/L [facility] Total Protein 8.1(H) 6.5 - 8.0 g/dL [facility] Albumin Level 4.3 3.5 - 5.0 g/dL [facility] Alkaline Phosphatase 67 39 - 117 U/L [facility] 04/02/2024 10:2 7 AM EST 04/02/2024 10:31 AM EST us Generic External Data Provider LAB BLOOD ORDERAB LES Final Result [facility] [address] [place] [phone] * (ABNORMAL) CBC auto differential (04/02/2024 10:27 AM EST) White Blood Count 9.6 4.8 - 10.8 X10*3/uL [facility] Red Blood Count 4.75 4.20 - 5.50 X10*6/uL [facility] Hemoglobin 13.5 12.0 - 16.0 g/dl [facility] Hematocrit 40.3 37.0 - 47.0 % [facility] Mean Corpuscular Volume 84.8 80.0 - 98.0 fL [facility] Mean Corpuscular Hemoglobin 28.4 27.0 - 33.0 pg [facility] Mean Corpuscular HGB Conc 33.5 31.0 - 35.0 g/dl [facility] Red Cell Distribution Width 12.6 11.0 - 16.0 % [facility] Platelet Count 288 160 - 400 X10*3/uL [facility] Mean Platelet Volume 10.2 9.4 - 12.3 fL [facility] Neutrophils Percent Auto 86.4(H) 45 - 73 % [facility] Imm Gran Pct Auto 0.4 0.0 - 0.4 % [facility] Lymphocytes Percent Auto 2.6(L) 20 - 40 % [facility] Monocytes Percent Auto 10.1 2 - 11 % [facility] Eosinophils Percent Auto 0.0 0 - 4 % [facility] Basophils Percent Auto 0.5 0 - 2 % [facility] NRBC Pct Auto 0.0 0.0 - 0.2 /100WBC [facility] Neutrophils Absolute Auto 8.3 2.0 - 8.3 x10*3/uL [facility] Imm Gran Abs Auto 0.04(H) 0.00 - 0.03 X10*3/uL [facility] Lymphocytes Absolute Auto 0.3(L) 1.2 - 4.9 X10*3/uL [facility] Monocytes Absolute Auto 1.0 0.1 - 1.2 X10*3/uL [facility] Eosinophils Absolute Auto 0.0 0.0 - 0.4 X10*3/uL [facility] Basophils Absolute Auto 0.1 0.0 - 0.2 X10*3/uL [facility] NRBC Abs Auto 0.000 0.0 - 0.012 X10*3/uL [facility] 04/02/2024 10:2 7 AM EST 04/02/2024 10:31 AM EST us Generic External Data Provider LAB BLOOD ORDERAB LES Final Result [facility] [address] [place] [phone] [phone] documented in this encounter Visit Diagnoses Not on filedocumented in this encounter Additional Health Concerns Assessment Noted Time PHQ-9 Depression Total Score: 16 023 10:50 AM EDT documented as of this encounter Care Teams Director Of Strategic Initiatives Relationship Specialty Start Date End Date Kelly Hanley MD [address] [place] [address] PCP - General Internal Medicine 07/22/22 documented as of this encounter
--- OUTSIDE RECORDS SUMMARY | 2024-04-02 13:58 | XMS_ITS | Encounter Summary ---
Author Organization [facility] Address [address] [place] [address] Care Team Providers Care Insurance Administrative Assistant Name Role Phone Unavailable Primary Care Provider Unavailabl e Encounter Details Date Type Department Care Team (Late st Contact Info) Description 01/02/2024 Lab Requisition [facility] [address] [facility] [place] [address] Belen Menendez MD [address] [place], [place] [phone] Urinary tract infection, site not specified Social History Tobacco Use Types Packs/Day Years Used Date Smoking Tobacco: Never Assessed Comments Unknown Sex and Gender Information Value Date Recorded Sex Assigned at Not on file Legal Sex Female 12:21 AM EST Gender Identity Not on file Sexual Orientation Not on file documented as of this encounter Plan of Treatment Not on file documented as of this encounter Procedures Procedure Name Priority Date/Time Associated Diagnosis Comments URINALYSIS MICROSCOPIC ONLY Routine 01/02/2024 12:00 AM EST Urinary tract infection, site not specified URINALYSIS MICROSCOPIC ONLY Routine 01/02/2024 12:00 AM EST Urinary tract infection, site not specified VAGINITIS PATHOGENS BY PCR Routine 01/02/2024 12:00 AM EST Urinary tract infection, site not specified CULTURE URINE Routine 01/02/2024 12:00 AM EST Urinary tract infection, site not specified documented in this encounter Results * (ABNORMAL) Vaginitis pathogens molecular study (01/02/2024 12:00 AM EST) Trichomonas vaginalis Negative Negative 01/04/2024 11:12 AM [facility] Gardnerella vaginalis Positive(A) Negative 01/04/2024 11:12 AM [facility] Analia Species Negative Negative 11:12 AM [facility] Swab Vaginal structure / Unknown 01/02/2024 01/03/2024 1:09 PM EST us Belen Menendez MD LAB MICROBIOLOGY - GENERA L ORDERABLES Final Result [facility] [address] [place] [address], [place] [phone] * (ABNORMAL) Urinalysis microscopic only (01/02/2024 12:00 AM EST) RBC, Urine 4.2(H) 0 - 4 /HPF LAB URINALYSIS - AUTOMATED METHOD 01/02/2024 7:32 PM [facility] WBC, Urine 1.5 0 - 4 /HPF LAB URINALYSIS - AUTOMATED METHOD 01/02/2024 7:32 PM [facility] Squamous Epithelial, Urine 71(H) 0 - 60 /LPF LAB URINALYSIS - AUTOMATED METHOD 01/02/2024 7:32 PM [facility] Bacteria, Urine Negative Negative /HPF LAB URINALYSIS - AUTOMATED METHOD 01/02/2024 7:32 PM [facility] Hyaline Casts, Urine 2.4 0 - 3 /LPF LAB URINALYSIS - AUTOMATED METHOD 01/02/2024 7:32 PM [facility] Urine Urine specimen obtained by clean catch procedure / Unknown 01/02/2024 01/02/2024 6:42 PM EST us Belen Menendez MD LAB URINE ORDERABLES Kate l Result [facility] [address] [place] [address], [place] [phone] * Culture urine (01/02/2024 12:00 AM EST) Culture, Urine No growth 01/04/2024 11:54 AM EST [facility] Urine Urine specimen obtained by clean catch procedure / Unknown 01/02/2024 01/02/2024 6:42 PM EST us Belen Menendez MD LAB MICROBIOLOGY - GENERA L ORDERABLES Final Result [facility] [address] [place] [address], [place] [phone] documented in this encounter Visit Diagnoses Diagnosis Urinary tract infection, site not specified documented in this encounter
--- OUTSIDE RECORDS SUMMARY | 2024-04-02 13:58 | XMS_ITS | Encounter Summary ---
Author Organization [employer] Address [address] [facility] [address] [place] [address] Care Team Providers Care Epic Trainer Name Role Phone Kelly Hanley MD Primary Care Pro vider Reason for Visit * Reason Onset Date Comments ER Follow-up 08/24/2022 Encounter Details Date Type Department Care Team ([facility] st Contact Info) Description 08/24/2022 Telephone [facility] [address] [place] [address] Kelly Hanley MD [address] [place] [address] ER Follow-up Social History Tobacco Use Types Packs/Day Years Used Date Smoking Tobacco: Never Assessed Depression Answer Date Recorded Patient Health Questionnaire-9 Score 16 09/05/2022 Housing Stability Answer Date Recorded What is your housing situation today? I have hannahgita bynum 11/27/[address] you [...] AM EDT documented as of this encounter Miscellaneous Notes * Telephone Encounter - Kacey Allan RN - 08/24/2022 4:01 PM EDT Triage call Pt has been seen in [facility] [place] ED 08/23 for facial swelling and widespread rash. Pt reports started antihistamine zyrtec, hydrocortisone 1% cream and is advised to see PCP to obtain referral for stave block splitter with testing needing. Pt is unaware of any changes that could have caused this reaction. Ptdenies difficulty breathing or resp. symptoms. Pt is given apt with PCP 09/05 @ 1030am. Home care reviewed. Advised to try the aveeno bath for discomfort. Pt agrees with dispostion and Insurance is verified as active at time of booking. Protocol Used: Rash or Redness - Widespread (Adult) Protocol-Based Disposition: See in Office or Video Visit Today or Tomorrow Override (Final) Disposition: See in Office or Video Visit within 2 Weeks Override Reason: No appointments available Video visit not offered Positive Triage Question: * Mild widespread rash * All higher-acuity triage questions were negative Care Advice Discussed: * Reassurance and Education - Widespread Rash * Antihistamine Medicines for Moderate to Severe Itching * Reducing the Itch - Oatmeal (Aveeno) Bath * Hydrocortisone Cream for Itching * Contagiousness * Reasons To Call Back - Rash becomes purple or blood-colored or blister-like - Fever occurs or severe itching - You become worse * Telephone Encounter - Karuna Simeon - 08/24/2022 3:43 PM EDT Patient calling to report ED visit on 08/23/22 at [facility] [place]. Diagnosed with Allergic reaction, States has face swelling and rash widespread, pt stated they are still itchy and burning on skin. Patient advised will forward to team nurse for follow up. Please contact at [phone] [place] documented in this encounter Plan of Treatment Upcoming Encounters Date Type Department Care Team ([facility] st Contact Info) Description 06/04/2024 1:30 PM EDT Office Visit [facility] [address] [place] [address] [phone] Kelly Hanley MD [address] [place] [address] [phone] documented as of this encounter Visit Diagnoses Not on filedocumented in this encounter Care Teams Epic Trainer Relationship Specialty Start Date End Date Kelly Hanley MD [address] [place] [phone] PCP - General Internal Medicine 07/22/22 documented as of this encounter
--- OUTSIDE RECORDS SUMMARY | 2024-04-02 13:58 | XMS_ITS | Clinical Summary ---
Author Organization [facility] Address [address] [place] [address] [address] [place] [address] Care Team Providers Care Bonding Machine Tender Name Role Phone Kelly Hanley MD Primary Care Pro vider Allergies Active Allergy Reactions Criticality Noted Date Comments Amitriptyline 09/30/2016 Worsen SVT Magnesium 09/30/2016 Worsen SVT Naproxen 09/30/2016 Worsen SVT Sumatriptan 09/30/2016 Worsen SVT Medications acetaminophen (Tylenol 8 Hour) 650 MG ER tablet take 1 tablet by oral route every 8 hours as needed swallowing whole with water. Do not break, crush, dissolve and/or chew. Do not take more than 2-3 times per week for migraines. 2 Active clonazePAM (KlonoPIN) 1 MG tablet Take 1 mg by mouth if needed in the morning and at bedtime. Q 6 hours PRN w psychiatrist 3 Active divalproex (Depakote ER) 500 MG 24 hr tablet Take 1 tablet by mouth 2 times daily. Active Wixela Inhub 250-50 MCG/ACT aerosol powder 3 Active lurasidone (Latuda) 80 MG tablet TAKE 1 TABLET BY MOUTH EVERY EVENING TAKE WITH FOOD. Active metoclopramide (Reglan) 5 MG tablet Take 5 mg by mouth if needed in the morning, at noon, and at bedtime. 2 Active metoprolol succinate XL (Toprol-XL) 25 MG 24 hr tablet TAKE 1/2 TAB BY MOUTH EVERY DAY 3 Active OLANZapine (ZyPREXA) 10 MG tablet Take 1 tablet by mouth at bedtime. 3 Active zolpidem (Ambien) 10 MG tablet Take 1 tablet by mouth if needed at bedtime. Active EPINEPHrine (Epipen) 0.3 MG/0.3ML injection syringe Inject 0.3 mL (0.3 mg) as directed 1 (one) time if needed for anaphylaxis for up to 1 dose. Inject into upper leg. Call 911 after use. 1 each 1 3 Active diphenhydrAMINE (BENADryl) 25 MG tablet Take 1 tablet (25 mg) by mouth every 6 (six) hours if needed for itching or allergies. 30 tablet 1 3 Active Alcohol Swabs 70 % pads 1 Units in the morning. 100 each 3 Active glucose 4 g chewable tabletIndicatio ns:Hypoglycemic disorder Chew 4 tablets (16 g) if needed for low blood sugar. 50 tablet 2 3 Active Blood Glucose Monitoring Suppl (FreeStyle [place] Lite) w/Device kitIndications: Hypoglycemic disorder,Type 2 diabetes mellitus without complication, without long-term current use of insulin (CMS/FORMERLY [facility]) 1 DEVICE IN THE MORNING. 1 kit 3 Active FreeStyle lancetsIndicati ons:Hypoglycemi c disorder,Type 2 diabetes mellitus without complication, without long-term current use of insulin (CMS/HCC) 1 each by Other route in the morning. Use bid, dx type 2 diabetes 100 each 3 Active cholecalciferol (Vitamin D-3) 25 MCG (1000 UT) tablet Take 1 tablet (25 mcg) by mouth in the morning. 90 tablet 1 3 Active hydrocortisone 1 % cream Apply topically 2 times daily. 1.5 g 3 Active glucose blood (OneTouch Ultra) test stripIndication s:Hypoglycemic disorder,Type 2 diabetes mellitus without complication, without long-term current use of insulin (CMS/HCC) USE TO TEST BLOOD SUGAR TWICE A DAY 100 each 3 3 Active Blood Glucose Monitoring Suppl (ONE TOUCH ULTRA 2) w/Device kit USE TO TEST BLOOD SUGAR TWICE A DAY 1 kit 3 Active OneTouch Delica Lancets 33G misc USE TO TEST BLOOD SUGAR TWICE A DAY 100 each 3 3 Active Diclofenac Sodium 1 % gelIndications: Mid back pain on right side Apply to the affected area up to 4x/day as needed 50 g 1 4 Active levalbuterol (Xopenex) 1.25 MG/0.5ML nebulizer solution Take 0.5 mL (1.25 mg) by nebulization every 8 (eight) hours if needed for wheezing. USE 1.25 MG (0.5 ML) INHALATION EVERY 4 HOURS WHILE AWAKE 30 each 3 4 Active levalbuterol (Xopenex) 45 MCG/ACT inhaler Inhale 2 puffs every 4 (four) hours if needed for wheezing. 15 g 3 4 Active Spacer/Aero-Hol ding Chambers (OptiChamber [place]) misc 1 each every 4 (four) hours if needed (asthma). 1 each 4 Active Active Problems Problem Noted Date Diagnosed Date Hypoglycemia 10/11/2022 Assessment & Plan (10/11/2022 6:57 PM EDT): Pt reports hx of DM that even needed insulin at some point but loss weight after abdominoplasty and glucose controlled per pt and stopped taking meds including metformin Reports on and off having episodes of body tremors feeling sick and when check CBGs with her aunt machine noted In couple occasions to have CBgs in 40s ,after eating or drinking apple juice feels better Denies using any DM meds including sulfonylurea,insulin ,BHB ,denies herbal products ,denies etoh use nor drugs 09/2022 Fructosamine wnl,hb1AC is 5 -gave again today px x glucometer and to bring readings at next apt -px glucose tab for prn use -will do workup to r/o causes of hypoglycemia ( c peptide,insulin level,sulfonilurea screen ) -will need to consider CT abd to r/o insulinoma after blood workup is done -referred back to her clerk typist -alarm signs and symptoms discussed -Need to be cautious given pt taking BB that cab mask hypoglycemic symptoms Localized gingival recession, minimal 09/14/2022 Impacted teeth 09/14/2022 Dental calculus 09/14/2022 Nephrocalcinosis 09/05/2022 Assessment & Plan (10/11/2022 6:51 PM EDT): -renal US 2019:RIGHT KIDNEY: 10.3 x 4.4 x 4.0 cm (SAG x AP x TRV). The kidney isnormal in size, contour, and echogenicity. Renal cortical thickness is normal. There are several echogenic calculi suggestive of medullary nephrocalcinosis. The largest calculi in the mid pole measure 0.5 cm,0.4 cm and 0.3 cm and, in the lower pole, measures 0.3 cm. There is no caliectasis or hydronephrosis. LEFT KIDNEY: 10.4 x 4.1 x 3.7 cm (SAG x AP x TRV). The kidney is normal in size, contour, and echogenicity. Renal cortical thickness is normal. There are several echogenic calculi suggestive of medullary nephrocalcinosis. The largest calculi in the mid pole measure 0.4 cm, 0.4 cm and, in the lower pole, measures 0.2 cm. There is no caliectasis or hydronephrosis seen. IMPRESSION: Bilateral medullary nephrocalcinosis.-medullary sponge kidney per pt -reports f w urologist -Dr Vela -pt states around this month should have a f up -pt will call urologist office to schedule apt Assessment & Plan (09/05/2022 9:07 PM EDT): -renal US 2019:RIGHT KIDNEY: 10.3 x 4.4 x 4.0 cm (SAG x AP x TRV). The kidney isnormal in size, contour, and echogenicity. Renal cortical thickness is normal. There are several echogenic calculi suggestive of medullary nephrocalcinosis. The largest calculi in the mid pole measure 0.5 cm,0.4 cm and 0.3 cm and, in the lower pole, measures 0.3 cm. There is no caliectasis or hydronephrosis. LEFT KIDNEY: 10.4 x 4.1 x 3.7 cm (SAG x AP x TRV). The kidney is normal in size, contour, and echogenicity. Renal cortical thickness is normal. There are several echogenic calculi suggestive of medullary nephrocalcinosis. The largest calculi in the mid pole measure 0.4 cm, 0.4 cm and, in the lower pole, measures 0.2 cm. There is no caliectasis or hydronephrosis seen. IMPRESSION: Bilateral medullary nephrocalcinosis. -will f w pt at next apt if not f w urologist -will refer x renal US to monitor findings and to refer to urologist if still present SVT (supraventricular tachycardia) 09/05/2022 Assessment & Plan (10/11/2022 6:33 PM EDT): Pt w hx of SVT f w cards -echo 2019 :The left ventricular systolic function is low normal. The visually estimated ejection fraction is between 50-55%. - No obvious valvular pathology seen on this study. -continue BB Assessment & Plan (09/05/2022 9:04 PM EDT): Pt w hx of SVT f w cards -echo 2019 :The left ventricular systolic function is low normal. The visually estimated ejection fraction is between 50-55%. - No obvious valvular pathology seen on this study. -continue Health care maintenance 09/05/2022 Assessment & Plan (10/11/2022 6:48 PM EDT): -pap smear:06/2022 Neg per pt - ---- requested record to [facility] -vaccines: s/p HPV x2, MMRx1,COVID 19 x2x,offered today Bivalent again but refused, p23x1, -per pt had p20 w her ID physician -will bring records,tdap 2020, varicellax1 ,hep B immune ---- 09/2022 Low vit D -start daily vit D x 6 mo 09/2022 Total ch 202.trig 160,LDL 122 HDL 48 -repeat in 6 mo in fasting ,life style changes advised -pd to schedule apt w store consultant-referred at last visit Assessment & Plan (09/05/2022 9:19 PM EDT): -pap smear: will check w pt at next apt -labs x annual exam -will RTC in fasting -pt agreed to have STI testing including HIV to have for baseline ,will check DM labs and fructosamine for reported hypoglycemic events -here today wnl ,gave px x glucometer and to bring readings at next apt -vaccines: s/p HPV x2, MMRx1,COVID 19 x2x,offered today Bivalent but refused, p23x1, -per pt had p20 w her ID physician -will bring records,tdap 2020, varicellax1 ---- -reports itching in her right ear w normal exam-px debrox x now and will monitor at next visit -advised pt to bring all her meds at next apt -pt reports hx of DM will do labs -states already f w speech therapy teacher and referred today to store consultant ,not taking metformin x 1 year Angioedema 09/05/2022 Assessment & Plan (10/11/2022 6:38 PM EDT): Reports at least 3 times of facial rash and lip swelling w no other symptoms w no clear trigger ,not occurring again -alarm signs and symptoms -continue anthistamines prn -px epipen In case of emergency -referred to ship unloader -pt to call for apt -has info -if not seen by ship unloader until next visit will order MISTY,C3-C4 .etc Assessment & Plan (09/05/2022 9:14 PM EDT): Reports at least 3 times of facial rash and lip swelling w no other symptoms w no clear trigger -alarm signs and symptoms -continue anthistamines prn -px epipen In case of emergency -referred today to ship unloader Schizoaffective disorder 06/01/2021 Postural orthostatic tachycardia syndrome 2013 Eczema 07/27/2012 Assessment & Plan (10/11/2022 6:52 PM EDT): -skin : noted mild dry scaly rash close to right side of nare -itchy to pt -px today hydrocortisone cream BID x no more than 7 days advised Bipolar I disorder 06/07/2012 Assessment & Plan (10/11/2022 6:35 PM EDT): Bipolar/Schizoaffective/anxiety disorder f psychiatry and therapist every month -denies SI but reports 10 y ago tried cutting wrist and at another time to take pills -reports currently stable -continue care w psychiatrist/therapist Assessment & Plan (09/05/2022 9:08 PM EDT): Bipolar/Schizoaffective/anxiety disorder f psychiatry and therapist every month -denies SI but reports 10 y ago tried cutting wrist and at another time to take pills -reports currently stable -continue care w psychiatrist/therapist Carpal tunnel syndrome 06/07/2012 Anxiety 08/10/2011 Asthma-COPD overlap 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/10/2011 Assessment & Plan (10/11/2022 6:32 PM EDT): Asthma/COPD -f w screw machine hand Assessment & Plan (09/05/2022 9:03 PM EDT): Asthma/COPD -f w screw machine hand Cervical incompetence 08/10/2011 Migraine 08/10/2011 Polycystic ovaries 08/19/2009 Resolved Problems Problem Noted Date Diagnosed Date Resolved Date Mood disorder 11/27/2017 09/05/2022 Encounters Date Type Department Care Team Description 04/02/2024 Orders Only GENERIC EXTERNAL DATA DEPARTMENT Provider, Generic External Data from Last 3 Months Immunizations Name Administration Dates Next Due HPV, Quadrivalent 12/03/2009,10/13/2009 Influenza injectable quadriv alent IIV4 with preservative 10/22/2021,12/01/2020,01/10/2019,12/01 Influenza, seasonal, injecta ble, preservative free 12/18/2013 MMR 03/19/2009 Pneumococcal Polysaccharide PPSV23 12/18/2013 TD (adult), 2 Lf tetanus tox oid, preservative free, adsorbed 03/19/2009 Td (adult), 5 Lf tetanus tox oid, preservative free, adsorbed 02/13/2016 Tdap 12/16/2020 Varicella 07/05/2011 Family History Medical History Relation Name Comments No Known Problems Father Lymphoma Mother's Sister another aunt : breast ca Mother's Sister another aunt : ovarian cancer Mother's Sister Relation Name Status Comments Father Mother's Sister Social History Tobacco Use Types Packs/Day Years Used Date Smoking Tobacco: Never Passive Smoke Exposure: Never Smokeless Tobacco: Never Tobacco Cessation:Counseling Given: Not Answered Alcohol Use Standard Drinks/Week Comments Yes 0 [...] Orientation Straight 12/20/2021 10 :19 AM EDT Last Filed Vital Signs Vital Sign Reading Time Taken Comments Blood Pressure 118/81 11/06/2023 5:38 PM EDT Pulse 71 11/06/2023 5:38 PM EDT Temperature 36.8 ??C (98.2 ??F) 11/06/2023 5:38 PM ED T Respiratory Rate 20 11/06/2023 5:38 PM EDT Oxygen Saturation 95% 11/06/2023 5:38 PM EDT Inhaled Oxygen Concentration - - Weight 58.9 kg (129 lb 12.8 oz) 11/06/2023 5:38 PM EDT Height 152.4 cm (5') 11/06/2023 5:38 PM EDT Body Mass Index 25.35 11/06/2023 5:38 PM EDT Plan of Treatment Upcoming Encounters Date Type Department Care Team (Late st Contact Info) Description 06/04/2024 1:30 PM EDT Office Visit [facility] [address] [place] [address] Kelly Hanley MD [address] [place], [place] [phone] Health Maintenance Due Date Last Done Comments Alcohol/Substance Use Screening 1999 Family Planning (PISQ) 09/19/2002 Hepatitis B Vaccines (1 of 3 - 19+ 3-dose series) 09/19/2006 Pap Smear 09/19/2008 HPV Vaccines (3 - 3-dose series) 04/15/2010 12/03/2009, 10/13/2009 Pneumococcal Vaccine: Pediatrics (0 to 5 Years) and At-Risk Patients (6 to 49) Years) (2 of 2 - PCV) 12/18/2014 12/18/2013 Cervical Cancer Screening 09/19/2017 HPV/Cotest 09/19/2017 Dental Oral Exam 09/18/2019 03/19/2019, , 11/14/2017, Additional history exists Depression Monitoring (PHQ-9) 03/08/2023 09/05/2022, 09/05/2022 Dental Prophylaxis 03/18/2023 09/14/2022, 1 03/02/2020, 02/14/2019, Additional history exists Depression Screening 09/06/2023 09/05/2022, 09/06/19 23 Dental X-Ray: Bitewings 09/16/2023 09/15/19 23, 12/31/2020, 03/19/2019, Additional history exists SDOH Screening 09/30/2023 09/29/2022 COVID-19 Vaccine ( season) 2023 12/04/2020, 11/12/2020 Influenza Vaccine (#1) 2023 , 12/01/2020, 01/10/2019, Additional history exists Tobacco Screening 08/16/2024 08/17/2023 Dental X-Ray: Full Mouth 09/15/2025 023, 10/31/2014, 09/29/2011 Lipid Panel 10/06/2027 10/05/2022 DTaP/Tdap/Td Vaccines (2 - Td or Tdap) 12/16/2030 12/16/2020, 02/13/2016, 03/19/2009 Zoster Vaccines (1 of 2) 09/19/2037 RSV Patients and Patients Aged 60 years or older (1 - 1-dose 75+ series) 09/19/2062 HIV Screening Completed 10/05/2022, 11/16/2021 Hepatitis C Screening Completed 10/05/2022, 022 HIB Vaccines Aged Out No longer eligi ble based on patient's age to complete this topic Hepatitis A Vaccines Aged Out No long er eligible based on patient's age to complete this topic IPV Vaccines Aged Out No longer eligi ble based on patient's age to complete this topic Meningococcal Vaccine Aged Out No aronld tressa eligible based on patient's age to complete this topic RSV under 20 months Aged Out No longe r eligible based on patient's age to complete this topic Rotavirus Vaccines Aged Out No longer eligible based on patient's age to complete this topic Procedures Procedure Name Priority Date/Time Associated Diagnosis Comments XR CHEST 2 VIEWS Routine 04/02/2024 10:5 0 AM EST COMPREHENSIVE METABOLIC PANEL Routine 04/02/2024 10:27 AM EST CBC WITH AUTO DIFFERENTIAL Routine 04/02/2024 10:27 AM EST SARS COV2/INFLUENZA A/B AND RSV RNA QL NAAT Routine 04/02/2024 10:27 AM EST HEPATITIS C ANTIBODY REFLEX Routine 10/05/2022 11:32 AM EDT HIV ANTIBODY/ANTIGEN ([place] [facility]) Routine 10/05/2022 11:32 AM EDT LIPID PANEL, STANDARD Routine 10/05/2022 11:32 AM EDT Health care maintenance PROPHYLAXIS - ADULT Routine 09/14/2022 1 1:00 AM EDT Dental calculus DIAGNOSTIC - DIAGNOSTIC IMAGING - INTRAORAL - COMPREHENSIVE SERIES OF RADIOGRAPHIC IMAGES Routine 09/14/2022 11:00 AM EDT Localized gingival recession, minimal Impacted teeth Dental calculus PERIODIC ORAL EVALUATION - ESTABLISHED PATIENT Routine 03/19/2019 12:00 AM EST from Last 3 Months or Most Recently Relevant to Health Maintenance Results * XR Chest 2 Views (04/02/2024 10:50 AM EST) Anatomical Region Laterality Modality Chest Radiographic Latanya ging 04/02/2024 10:5 0 AM EST Narrative 04/02/2024 11:10 AM EST ? [facility] ?[address] ?[place], [place] [address] ?XRay Report ? Signed ? Patient: Guillermina Townsend ?MR#: [id number] ? : 1985 ?Acct:[id number] ? Age/Sex: 38 / F ?ADM Date: 04/02/24 ? Loc: HO.ED ? Attending Dr: ? Ordering Physician: Generic ED Physician ?? Date of Service: 04/02/24 ?? Procedure(s): XR chest 2V ?? Accession Number(s): [id number] ? cc: Generic ED Physician; Kelly Hanley [...] Littlejohn MD ??04/02/2024 11:08 AM EST RP ?? Work[facility]: [id number] ? Dictated By: ?Adilson Littlejohn MD ? Signed By: ?<Electronically signed by Adilson Littlejohn MD in OV> ?04/02/24 1108 ? DD/ 1050 ? TD/TT: 04/02/24 1058 ? Information Systems Security Manager: ? Procedure Note Padmini Sparks - 04/02/2024 [facility] [address] [place] [address] XRay Report Signed Patient: Cheryl Townsend#: [id number] : 1985Acct:[id number] Age/Sex: 38 / FADM Date: 04/02/24 Loc: .ED Attending Dr: Ordering Physician: Al[place]to ED Physician Date of Service: 04/02/24 Procedure(s): XR chest 2V Accession Number(s): [id number] cc: Generic ED Physician; Kelly Hanley MD [...] by: Adilson Littlejohn MD 04/02/2024 11:08 AM EST Dictated By: Adilson Littlejohn MD Signed By: <Electronically signed by Adilson Littlejohn MD in OV> 04/02/24 1108 DD/ 1050 TD/TT: 04/02/24 1058 Information Systems Security Manager: [facility] External Provider IMG XR PROCEDURES Final Result * (ABNORMAL) SARS-CoV-2 RNA, Influenza A/B, and RSV RNA, Ql NAAT (04/02/2024 10:27 AM EST) Influenza A PCR POSITIVE(A) Negative [facility] Influenza B PCR NEGATIVE Negative [facility] Resp Syncy Virus RNA Qual PCR NEGATIVE Negative [facility] SARS COV2 PCR NEGATIVE Negative [facility] Comment:All test results mus t [...] use by authorized laboratories.Testing performed on the [employer] GeneXpert utilizingreal-time RT-PCR.All SARS CoV2 and positive influenza A/B results arereported to [facility]. 04/02/2024 10:2 7 AM EST 04/02/2024 10:31 AM EST us Generic External Data Provider LAB MICROBIOLOGY - GENERAL ORDERABLES Final Result [facility] [address] [place] [phone] * (ABNORMAL) CBC auto differential (04/02/2024 10:27 AM EST) White Blood Count 9.6 4.8 - 10.8 X10*3/uL [facility] Red Blood Count 4.75 4.20 - 5.50 X10*6/uL [facility] Hemoglobin 13.5 12.0 - 16.0 g/dl [facility] Hematocrit 40.3 37.0 - 47.0 % [facility] Mean Corpuscular Volume 84.8 80.0 - 98.0 fL [facility] Mean Corpuscular Hemoglobin 28.4 27.0 - 33.0 pg [facility] Mean Corpuscular HGB Conc 33.5 31.0 - 35.0 g/dl [facility] Red Cell Distribution Width 12.6 11.0 - 16.0 % [facility] Platelet Count 288 160 - 400 X10*3/uL [facility] Mean Platelet Volume 10.2 9.4 - 12.3 fL [facility] Neutrophils Percent Auto 86.4(H) 45 - 73 % [facility] Imm Gran Pct Auto 0.4 0.0 - 0.4 % [facility] Lymphocytes Percent Auto 2.6(L) 20 - 40 % [facility] Monocytes Percent Auto 10.1 2 - 11 % [facility] Eosinophils Percent Auto 0.0 0 - 4 % [facility] Basophils Percent Auto 0.5 0 - 2 % [facility] NRBC Pct Auto 0.0 0.0 - 0.2 /100WBC [facility] Neutrophils Absolute Auto 8.3 2.0 - 8.3 x10*3/uL [facility] Imm Gran Abs Auto 0.04(H) 0.00 - 0.03 X10*3/uL [facility] Lymphocytes Absolute Auto 0.3(L) 1.2 - 4.9 X10*3/uL [facility] Monocytes Absolute Auto 1.0 0.1 - 1.2 X10*3/uL [facility] Eosinophils Absolute Auto 0.0 0.0 - 0.4 X10*3/uL [facility] Basophils Absolute Auto 0.1 0.0 - 0.2 X10*3/uL [facility] NRBC Abs Auto 0.000 0.0 - 0.012 X10*3/uL [facility] 04/02/2024 10:2 7 AM EST 04/02/2024 10:31 AM EST us Generic External Data Provider LAB BLOOD ORDERAB LES Final Result [facility] [address] [place] [phone] * (ABNORMAL) Comprehensive Metabolic Panel (04/02/2024 10:27 AM EST) Sodium 137 135 - 145 mmol/L [facility] Potassium 3.8 3.3 - 5.1 mmol/L [facility] Chloride 109(H) 96 - 108 mmol/L [facility] Carbon Dioxide 19(L) 22 - 29 mmol/L [facility] Anion Gap 13 12 - 20 [facility] Urea Nitrogen (BUN) 8(L) 9 - 16 mg/dL [facility] Creatinine, Serum 0.69 0.5 - 1.4 mg/dL [facility] Creatinine Clr Calc Pharmacy 89.3 [facility] Comment:Provided height and weight: 152.4 cm,57.153 kg.eGFR (calculated from the MDRD study equation) and eCrCl(calculated from the Cockcroft-Gault equation) are based ondifferent parameters and may not yield comparable results.If eCrCl result is absurd, please check patient'sheight/weight. Estimated Glomerular Filt Rate >60 [facility] Comment:Chronic Kidney Disea se: Estimated GFR < 60 mL/min/1.07u2Zeexfe Kidney Disease: Estimated GFR < 15 mL/min/1.73m2 Glucose 105 60 - 115 mg/dL [facility] Calcium 9.2 8.4 - 10.2 mg/dL [facility] Bilirubin, Total 0.2 0.0 - 1.0 mg/dL [facility] Aspartate Amino Transferase 22 5 - 31 U/L [facility] Alanine Aminotransferase 19 0 - 31 U/L [facility] Total Protein 8.1(H) 6.5 - 8.0 g/dL [facility] Albumin Level 4.3 3.5 - 5.0 g/dL [facility] Alkaline Phosphatase 67 39 - 117 U/L [facility] 04/02/2024 10:2 7 AM EST 04/02/2024 10:31 AM EST us Generic External Data Provider LAB BLOOD ORDERAB LES Final Result Performing Organization Address [facility] Co de Phone Number [facility] [address] [place] [phone] * Hepatitis C Antibody Reflex (10/05/2022 11:32 AM EDT) Hepatitis C Antibody Nonreactive Nonreactive [facility] Comment:Antibodies to HCV no t detected; does not exclude early acuteHCV infection. 10/05/2022 11:3 2 AM EDT 10/05/2022 1:02 PM EDT us Kelly Leyva MD LAB BLOOD ORDERAB LES Final Result Performing Organization Address City/[facility]/ZIP Co de Phone Number [facility] [address] [place] [phone] * HIV Ab/Ag ([facility]) (10/05/2022 11:32 AM EDT) Pathologist [facility] HIV AB/AG Nonreactive Nonreactive [facility] Comment:HIV-1 p24 Ag and/or HIV-1/HIV-2 Ab not detected.A test result that is nonreactive does not exclude thepossibility of exposure to or infection with HIV-1 and/orHIV-2. Nonreactive results in this assay for individualswith prior exposure to HIV-1 and/or HIV-2 may be due toantigen and antibody levels that are below the limit ofdetection of this assay.The [employer] In[employer] HIV Ag/Ab Combo assay result andsupplemental assay results should be interpreted inconjunction with the patient's clinical presentation,history and other laboratory results. If the results areinconsistent with clinical evidence, additional testing issuggested to confirm the result. 10/05/2022 11:3 2 AM EDT 10/05/2022 1:02 PM EDT us Kelly Leyva MD LAB BLOOD ORDERAB LES Final Result [facility] [address] [place] [phone] * Lipid Panel, Standard (10/05/2022 11:32 AM EDT) Triglycerides 160 mg/dL [facility] Comment:Desirable Triglyceri de: less than 150 mg/dLBorderline High Triglyceride 150-199 mg/dLHigh Triglyceride: 200-499 mg/dLVery High Triglyceride: greater than or equal to 5OO mg/dL Cholesterol 202 mg/dL [facility] Comment:Desirable Cholestero l: less than 200 mg/dLBorderline High Cholesterol: 200-239 mg/dLHigh Cholesterol: greater than 239 mg/dL LDL Cholesterol Calculated 122 mg/dl [facility] Comment:Desirable LDL: less than 100 mg/dLNear Optimal/Above Optimal LDL: 110- 129 mg/dLBorderline High LDL: 130-159 mg/dLHigh LDL: 160-189 mg/dLVery High LDL: greater than or equal to 190 mg/dL HDL Cholesterol 48 mg/dL [facility] Comment:Desirable HDL: great er than 40 mg/dL Note: This HDL assay may give artificially low results in patients with liver disease. Blood Venous blood specimen / Unknown 10/05/2022 11:32 AM EDT 10/05/2022 1:02 PM EDT us Kelly Leyva MD LAB BLOOD ORDERAB LES Final Result [facility] [address] [place] [address] [phone] from Last 3 Months or Most Recently Relevant to Health Maintenance Insurance [facility] - [facility] Care Teams Bonding Machine Tender Relationship Specialty Start Date End Date Kelly Hanley MD [address] [place] [phone] PCP - General Internal Medicine 07/22/22
--- OUTSIDE RECORDS SUMMARY | 2024-04-02 13:58 | XMS_ITS | Encounter Summary ---
Author Organization [employer] [facility] Address [address] [place] [address] [address] [place] [address] Care Team Providers Care Speech Correction Consultant Name Role Phone Ginger Lugo Primary Care Provider [phone] Kelly Hanley MD Primary Care Pro vider Encounter Details Date Type Department Care Team (Latest Contact Info) Description 02/14/[address] [facility] CONVERSIONS Dental, Provider, DDS Social History Tobacco Use Types Packs/Day Years [...] 1:30 PM EDT Office Visit [facility] MEDICINE [address] [place], [place] [phone] Kelly Hanley MD [address] [place] [address] documented as of this encounter Visit Diagnoses Not on filedocumented in this encounter Care Teams Speech Correction Consultant Relationship Specialty Start Date End Date Ginger Lugo FNP [address] [place] [address] PCP - General Family Medicine 10/17/21 07/21/22 Kelly Hanley MD [address] [place] [id number] PCP - General Internal Medicine 07/22/22 documented as of this encounter
--- OUTSIDE RECORDS SUMMARY | 2024-04-02 13:58 | XMS_ITS | Encounter Summary ---
Author Organization [employer] Address [address] [place] [address] [address] [place] [address] Care Team Providers Care Die Cutter Diamond Name Role Phone Kelly Hanley MD Primary Care Pro vider Reason for Visit * Reason Onset Date Comments Referral 10/17/2022 Encounter Details Date Type Department Care Team ([facility] st Contact Info) Description 10/17/2022 Telephone [facility] MEDICINE [address] [place] [address] Kelly Hanley MD [address] [place] [address] Referral Social History Tobacco Use Types Packs/Day Years Used Date Smoking Tobacco: Never Smokeless Tobacco: Never Alcohol Use Standard [...] encounter Miscellaneous Notes * Telephone Encounter - Samantha Solomon - 10/27/2022 11:43 AM EDT Tc from patient re calling in regards to message below. [facility] office stated they haven't received anything. Patient has been calling to be seen since 09/05/22. Patient has been seen at the ED over 3 times for this same symptom. Referral has to be placed in as urgent due to office currently booking for September 2023. * Telephone Encounter - Karuna Simeon - 10/17/2022 11:25 AM EDT Tc from pt requesting a urgent referral for Allergy & Immunology , pt stated they attempted to schedule an appt however they are scheduling out for next year August 2023. Pt was advised from facility for pt to be see sooner PCP would have to place referral as a urgency. Please contact at [phone] documented in this encounter Plan of Treatment Upcoming Encounters Date Type Department Care Team (Late st Contact Info) Description 06/04/2024 1:30 PM EDT Office Visit [facility] MEDICINE [address] [place], [place] [phone] Kelly Hanley MD [address] [place], [place] [phone] documented as of this encounter Visit Diagnoses Not on filedocumented in this encounter Additional Health Concerns Assessment Noted Time PHQ-9 Depression Total Score: 16 023 10:50 AM EDT documented as of this encounter Care Teams Die Cutter Diamond Relationship Specialty Start Date End Date Kelly Hanley MD [address] [place] [id number] PCP - General Internal Medicine 07/22/22 documented as of this encounter
--- OUTSIDE RECORDS SUMMARY | 2024-04-02 13:58 | XMS_ITS | Clinical Summary ---
Author Organization [address] [facility] Address [address] [place] [address] Phone Care Team Providers Care Financial Reporting Advisor Name Role Phone Unavailable Primary Care Provider Unavailabl e Encounters Date Type Department Care Team Description 01/02/2024 Lab Requisition [facility] [address] [facility] [place] [address] Belen Menendez MD Urinary tract infection, site not specified from Last 3 Months Social History Tobacco Use Types Packs/Day Years Used Date Smoking Tobacco: Never Assessed Comments Unknown Sex and Gender Information Value Date Recorded Sex Assigned at Not on file Legal Sex Female 12:21 AM EST Gender Identity Not on file Sexual Orientation Not on file Plan of Treatment Health Maintenance Due Date Last Done Comments DTaP,Tdap,and Td Vaccines (1 - Tdap) 09/19/1994 Hepatitis B Vaccines (1 of 3 - 19+ 3-dose series) 09/19/2006 Cervical Cancer Screening: P ap Smear 09/19/2008 Depression Screening 01/23/2022 HIV Screening 01/23/2022 Hepatitis C Screening 01/23/2022 Social Influencers of Health Screening 01/23/2022 COVID-19 Vaccine ( - 2023-2 5 season) 2023 Influenza Vaccine (#1) 2023 HIB Vaccines Aged Out No longer eligi ble based on patient's age to complete this topic HPV Vaccines Aged Out No longer eligi ble based on patient's age to complete this topic Hepatitis A Vaccines Aged Out No long er eligible based on patient's age to complete this topic IPV Vaccines Aged Out No longer eligi ble based on patient's age to complete this topic MMR Vaccines Aged Out No longer eligi ble based on patient's age to complete this topic Meningococcal ACWY Vaccine Aged Out N o longer eligible based on patient's age to complete this topic Meningococcal B Vacine Aged Out No lo nger eligible based on patient's age to complete this topic Pneumococcal Vaccine: Pediat rics (0 to 5 Years) and At-Risk Patients (6 to 64 Years) Aged Out No longer eligible b ased on patient's age to complete this topic RSV Immunization Patients Un javier 20 months Aged Out No longer eligible b ased on patient's age to complete this topic Varicella Vaccines Aged Out No longer eligible based [...] EST Urinary tract infection, site not specified from Last 3 Months Results * (ABNORMAL) Urinalysis microscopic only (01/02/2024 12:00 AM EST) RBC, Urine 4.2(H) 0 - 4 /HPF LAB URINALYSIS - AUTOMATED METHOD 01/02/2024 7:32 PM [facility] WBC, Urine 1.5 0 - 4 /HPF LAB URINALYSIS - AUTOMATED METHOD 01/02/2024 7:32 PM [facility] Squamous Epithelial, Urine 71(H) 0 - 60 /LPF LAB URINALYSIS - AUTOMATED METHOD 01/02/2024 7:32 PM [facility] Bacteria, Urine Negative Negative /HPF LAB URINALYSIS - AUTOMATED METHOD 01/02/2024 7:32 PM [facility] Hyaline Casts, Urine 2.4 0 - 3 /LPF LAB URINALYSIS - AUTOMATED METHOD 01/02/2024 7:32 PM [facility] Urine Urine specimen obtained by clean catch procedure / Unknown 01/02/2024 01/02/2024 6:42 PM EST us Belen Menendez MD LAB URINE ORDERABLES Kate l Result Performing Organization Address City/[facility]/ZIP Co de Phone Number [facility] [address] [place] [address], [place] [phone] * (ABNORMAL) Vaginitis pathogens molecular study (01/02/2024 12:00 AM EST) Trichomonas vaginalis Negative Negative 01/04/2024 11:12 AM EST [facility] Gardnerella vaginalis Positive(A) Negative 01/04/2024 11:12 AM EST [facility] Analia Species Negative Negative 11:12 AM EST [facility] Swab Vaginal structure / Unknown 01/02/2024 01/03/2024 1:09 PM EST us Belen Menendez MD LAB MICROBIOLOGY - GENERA L ORDERABLES Final Result Performing Organization Address [facility]/ZIP Co de Phone Number [facility] [address] [place] [address], [place] [phone] * Culture urine (01/02/2024 12:00 AM EST) Culture, Urine No growth 01/04/2024 11:54 AM EST [facility] Urine Urine specimen obtained by clean catch procedure / Unknown 01/02/2024 01/02/2024 6:42 PM EST us Belen Menendez MD LAB MICROBIOLOGY - GENERA L ORDERABLES Final Result Performing Organization Address City/[facility]/ZIP Co de Phone Number [facility] [address] [place] [address], [place] [phone] from Last 3 Months Insurance [facility] Member Subscriber Plan / Payer (Ef fective 2013-Present) Name:Pennie Henriquez Relation to Subscriber:Spouse Name:PENNIE HENRIQUEZ Date of :1987 Payer ID:[id number] Group ID:[id number] Type:Not on file Address: [address] [id number]
--- OUTSIDE RECORDS SUMMARY | 2024-04-02 13:58 | XMS_ITS | Encounter Summary ---
Author Organization [facility] Address [address] [place] [address] [address] [place] [address] Care Team Providers Care Renewable Energy Consultant Name Role Phone Ginger Lugo Primary Care Provider [phone] Kelly Hanley MD Primary Care Pro vider Encounter Details Date Type Department Care Team (Latest Contact Info) Description 12/31/2020 Abstract [facility] CONVERSIONS Dental, Provider, DDS Social History [...] 1:30 PM EDT Office Visit [facility] MEDICINE [address] [place], [place] [phone] Kelly Hanley MD [address] [place] [address] documented as of this encounter Visit Diagnoses Not on filedocumented in this encounter Care Teams Renewable Energy Consultant Relationship Specialty Start Date End Date Ginger Lugo FNP [address] [place] [address] PCP - General Family Medicine 10/17/21 07/21/22 Kelly Hanley MD [address] [place] [id number] PCP - General Internal Medicine 07/22/22 documented as of this encounter
--- OUTSIDE RECORDS SUMMARY | 2024-04-02 13:59 | XMS_ITS | Referral Summary ---
Author Organization [facility] Address [address] [place] [address] Care Team Providers Care Supervisor Hospitality House Name Role Phone Jayda Hanson Primary Care Provider [phone] Medications ibuprofen (MOTRIN) 600 mg tablet Take 1 tablet by mouth every 6 hours as needed. Active albuterol 2.5 mg/3 mL (0.083%) nebulizer solution INHALE 1 VIAL VIA NEBULIZER EVERY 6 HOURS Active buPROPion XL (WELLBUTRIN XL) 150 mg tablet SMARTSI Tablet(s) By Mouth Every Morning 3 Active cetirizine (ZyrTEC) 10 mg tablet SMARTSI Tablet(s) By Mouth Daily 3 Active cholecalciferol (VITAMIN D3) 1,000 unit tablet Take 25 mcg by mouth daily. 3 Active clonazePAM (KlonoPIN) 1 mg tablet SMARTSI Tablet(s) By Mouth Twice Daily PRN Active glucose 4 gram chewable tablet SMARTSI Tablet(s) By Mouth PRN 3 Active diphenhydrAMINE (SOMINEX) tablet 25 mg Take 25 mg by mouth every 6 hours as needed. 3 Active divalproex ER (DEPAKOTE ER) 500 mg tablet Take 1 tablet by mouth 2 times a day. Active EPINEPHrine (EPIPEN) 0.3 mg/0.3 mL injection syringe Inject 0.3 mg as directed. 3 Active fluconazole (DIFLUCAN) 100 mg tablet Take 1 tablet by mouth once a day. Active Wixela Inhub 250-50 mcg/dose inhaler SMARTSI Puff(s) By Mouth Twice Daily Active hydrocortisone 2.5% cream APPLY TO AFFECTED AREAS OF FACE TWICE DAILY X1 WEEK ON, 1 WEEK OFF REPEAT NEEDED ONLY FOR FLARES 3 Active levalbuterol (XOPENEX) 1.25 mg/0.5 mL nebulizer solution USE 1.25 MG (0.5 ML) INHALATION EVERY 4 HOURS WHILE AWAKE Active levalbuterol (XOPENEX HFA) 45 mcg/actuation inhaler INHALE 2 PUFFS ORALLY EVERY 4 TO 6 HOURS NEEDED FOR FOR WHEEZING 3 Active metoprolol succinate XL (TOPROL XL) 25 mg tablet TAKE 1/2 TAB BY MOUTH EVERY DAY 3 Active montelukast (SINGULAIR) 10 mg tablet Montelukast Sodium 10 MG Oral Tablet TAKE 1 TABLET AT BEDTIME. Quantity: 30; Refills: 3 INGRID SHANNON M.D.; Started Active 4 Active nitrofurantoin monohydrate/mac rocrystals (MACROBID) 100 mg capsule Take 1 capsule by mouth once a day. Active ondansetron (ZOFRAN) 4 mg tablet TAKE 1 TABLET BY MOUTH TWICE A DAY NEEDED FOR NAUSEA AND VOMITING Active zolpidem (AMBIEN) 10 mg tablet TAKE 1 TABLET BY MOUTH EVERY DAY AT BEDTIME NEEDED 4 Active nystatin-triamc inolone (MYCOLOG II) cream Apply topically to the affected area 2 times a day. Apply to upper leg x 1 week. 15 g 3 Active Active Problems Problem Noted Date Diagnosed Date Type 2 diabetes mellitus 09/03/2013 Bipolar disorder 09/03/2013 Fibromyalgia 09/03/2013 Asthma 09/03/2013 Supraventricular tachycardia 06/27/2013 Social History Tobacco Use Types Packs/Day Years Used Date Smoking Tobacco: Never Comments:: Comments Unknown Sex and Gender Information Value Date Recorded Sex Assigned at Female 11/30/2022 1:01 PM EDT Legal Sex Female 10:12 AM EDT Gender Identity Female 11/30/2022 1:01 PM EDT Sexual Orientation Straight 11/30/2022 1: 01 PM EDT Last Filed Vital Signs Vital Sign Reading Time Taken Comments Blood Pressure 122/77 02/02/2023 11:37 AM EST Pulse 79 02/02/2023 11:37 AM EST Temperature - - Respiratory Rate 20 02/02/2023 11:37 AM EST Oxygen Saturation 99% 02/02/2023 11:37 AM EST Inhaled Oxygen Concentration - - Weight 54.5 kg (120 lb 3.2 oz) 02/02/2023 11:37 AM EST Height 152.4 cm (5') 10/14/2013 12:27 PM EDT Body Mass Index 23.47 10/14/2013 12:27 PM EDT Plan of Treatment Not on file Insurance [facility] Care Teams Supervisor Hospitality House Relationship Specialty Start Date End Date Jayda Hanson [address] [place] [address] PCP - General 09/08/16
--- OUTSIDE RECORDS SUMMARY | 2024-04-02 13:59 | XMS_ITS | Clinical Summary ---
Author Organization [facility] Address [address] [place] [address] Care Team Providers Care Assistant Plant Manager Name Role Phone Jayda Hanson Primary Care Provider [phone] Medications ibuprofen (MOTRIN) 600 mg tablet Take [...] Fibromyalgia 09/03/2013 Asthma 09/03/2013 Supraventricular tachycardia 06/27/2013 Family History Medical History Relation Name Comments Other Brother Family History of asthma Other Mother Family History of asthma Relation Name Status Comments Brother Mother Social History Tobacco Use Types Packs/Day Years [...] 10/14/2013 12:27 PM EDT Plan of Treatment Health Maintenance Due Date Last Done Comments Cervical Cancer Screening 1987 HIV Screening 1987 HPV and Pap Smear 1987 Hemoglobin A1C 1987 Hepatitis C Screening 1987 Pap Smear 1987 Ophthalmology Exam 09/19/1997 Urine Microalbumin 09/19/1997 Hepatitis B Vaccines (1 of 3 - 19+ 3-dose series) 09/19/2006 Varicella Vaccines (2 of 2 - 13+ 2-dose series) 08/02/2011 07/05/2011 Pneumococcal Vaccine: Pediat marcos (0-5 Years) and At-Risk Patients (6-64 Years) (2 of 2 - PCV) 12/18/2014 12/18/2013 COVID-19 Vaccine (3 - 2023-2 5 season) 2023 12/04/2020, 11/12/2020 Influenza Vaccine (#1) 2023 , 12/01/2020, 01/10/2019, Additional history exists Basic Metabolic Panel 01/09/2024 01/08/2023 , 01/06/2023, 10/05/2022 Alcohol/Substance Use Screening 02/21/2024 Depression Evaluation 02/21/2024 Social Drivers of Health Linsey ual Screening 02/21/2024 DTaP,Tdap,and Td Vaccines (3 - Td or Tdap) 12/16/2030 12/16/2020, 02/13/2016, 03/19/2009 RSV Vaccine (60+ years old a nd patients) (1 - 1-dose 75+ series) 09/19/2062 Insurance [facility] [address] [id number] Care Teams Assistant Plant Manager Relationship Specialty Start Date End Date Jayda Hanson [address] [place] [address] PCP - General 09/08/16
--- OUTSIDE RECORDS SUMMARY | 2024-04-02 13:59 | XMS_ITS | Data Portability ---
Author Organization AQUILES RAINES MD [facility], Main Office Address [address] [place] [id number] Assessment Encounter Date Assessment Date Assessment LastModified by Organization Details LastModified Time 02/27/2023 02/27/2023 telemedicine. phone. audio. pt home in [place]. 16 min [email or web address] Not available 03/15/2023 00:19:57 Plan of Treatment Reminders Order Date Submit Date Provider Last Modified By Organization Details Last Modified Time Details Appointments None recorded. Lab urinalysi s, complete 2022 023 [facility] (Lab), [address] [place] [address], [address], 3 19:07:25 culture, urine 2022 023 [email or web address] Not available 3 13:31:37 bacterial vaginosis + vaginitis panel, vaginal 2022 023 [email or web address] Not available 3 16:28:31 culture, blood 1 [email or web address] [place] [address] (Lab), [address] [place] [address], [address], 3 16:28:31 culture, blood 2 [address] (Lab), [address] [place] [address], [address], 3 16:28:31 CT + NG RNA, PCR, unspecifi ed specimen 2022 023 [email or web address] Not available 3 16:28:31 HIV-1 Ab, serum [address] (Lab), [address] [place] [address], [address], 3 16:28:30 RPR (rapid plasma reagin), serum [address] (Lab), [address] [place] [address], [address], 3 16:28:30 HBsAg (hepatiti s B surface Ag), serum [address] (Lab), [address] [place] [address], [address], 3 16:28:31 hepatitis C virus Ab, serum [address] (Lab), [address] [place] [address], [address], 3 16:28:31 varicella -zoster igg Ab screen, serum [address] (Lab), [address] [place] [address], [address], 3 15:55:50 Referral None recorded. Procedures None recorded. Surgeries None recorded. Imaging None recorded. Medication Orders doxycycli ne hyclate 100 mg capsule 2022 023 [facility]/Pharmacy #[id number], [address] [place], [address], 3 15:33:54 Valtrex 500 mg tablet 2022 023 [facility]/Pharmacy #[id number], [address] [place], [address], 3 15:33:54 Flagyl 500 mg tablet 2022 023 [facility]/Pharmacy #[id number], [address] [place], [address], 3 15:33:55 Valtrex 500 mg tablet 2022 023 [email or web address] [facility]/Pharmacy #[id number], [address] [place], [address], 3 02:19:22 Miconazol e-7 2 % vaginal cream 2023 024 [facility]/Pharmacy #[id number], [address] [place], [address], 4 23:43:08 Metrogel Vaginal 0.75 % (37.5 mg/5 gram) 2023 024 [id number] [address] [place], [address], 4 23:43:08 levofloxa ryan 500 mg tablet 2023 024 [id number] [address] [place], [address], 4 16:07:37 Patient TargetsNo targets recorded. Patient InstructionsNo instructions recorded. Reason for Referral None Reported. Results Created Date Observation Date Name Description Value Unit Range Abnormal Flag Note LastModifiedBy Organization Detail LastModifiedTime 11/26/1911/25/2022 URINA LYSIS glucose, (UA) NEGATI VE mg/dL negati ve Not Available [facility] [address] [place], [address], 11/25/2022 20:34:24 11/26/19 23 11/25/2022 URINA LYSIS bilirubin, urine NEGATI VE negati ve Not Available [facility] [address] [place], [address], 11/25/2022 20:34:24 11/26/19 23 11/25/2022 URINA LYSIS ketone, urine NEGATI VE mg/dL negati ve Not Available [facility] [address] [place], [address], 11/25/2022 20:34:24 11/26/1911/25/2022 URINA LYSIS specific gravity, urine 1.014 1.003- 1.030 Not Available [facility] [address] [place], [address], 11/25/2022 20:34:24 11/26/1911/25/2022 URINA LYSIS blood, urine NEGATI VE negati ve Not Available [facility] [address] [place], [address], 11/25/2022 20:34:24 11/26/1911/25/2022 URINA LYSIS pH, urine 5.5 5.0-8. 0 Not Available [facility] [address] [place], [address], 11/25/2022 20:34:24 11/26/1911/25/2022 URINA LYSIS protein, urine NEGATI VE mg/dL <= trace Not Available [facility] [address] [place], [address], 11/25/2022 20:34:24 11/26/1911/25/2022 URINA LYSIS urobilinogen , urine 0.2 E.U./ dL 0.2-1. 0 Not Available [facility] [address] [place], [address], 11/25/2022 20:34:24 11/26/1911/25/2022 URINA LYSIS nitrite, urine NEGATI VE negati ve Not Available [facility] [address] [place], [address], 11/25/2022 20:34:24 11/26/1911/25/2022 URINA LYSIS leukocyte esterase, urine SMALL negati ve abnormal Not Available [facility] [address] [place], [address], 11/25/2022 20:34:24 11/26/19 23 11/25/2022 URINA LYSIS RBC, urine 7 /hpf 0-4 high Not Available [facility] [address] [place] [address], [address], 11/25/2022 20:34:24 11/26/19 23 11/25/2022 URINA LYSIS WBC, urine 19 /hpf 0-4 high Not Available [facility] [address] [place] [address], [address], 11/25/2022 20:34:24 11/26/19 23 11/25/2022 URINA LYSIS epith cells, urine 146 /lpf 0-60 high Not Available [facility] [address] [place] [address], [address], 11/25/2022 20:34:24 11/26/19 23 11/25/2022 URINA LYSIS bacteria, urine MODERA TE negati ve abnormal Not Available [facility] [address] [place] [address], [address], 11/25/2022 20:34:24 11/26/19 23 11/25/2022 URINA LYSIS hyaline cast, urine 3 /lpf 0-3 Not Available [facility] [address] [place] [address], [address], 11/25/2022 20:34:24 11/26/19 23 11/25/2022 URINA LYSIS performing lab Perfor [facility] yumiko howard r of [facility] [address] [place] [address] Medic al Direbrien bellamy MD Not Available [facility] [address] [place] [address], [address], 11/25/2022 20:34:24 11/26/19 23 11/25/2022 URINE CULTU RE performing lab Perfor sharan [facility] atoryumiko lopez membe r of [facility] Of [address] [place] [address] Medic al Direbrien bellamy MD Not Available [facility] [address] [place], [address], 11/28/2022 09:24:01 11/26/1911/28/2022 URINE CULTU RE urine culture DRUG RESIS TANT ORGAN ISM MRS A-MET MICHA CORNELIUS RESIS TANT STAPSd . DOMENICOU S RESUL TS FAXED TO DR.MA MCMULLEN ON 11/28 AT 0920 BY JOHN VINES ADDIT IONAL COLON Y TYPE( S) PRESE NT IN INSIG NIFIC ANT AMOUN TS. 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) Not Available [facility] [address] [place], [address], 11/28/2022 09:24:01 11/26/1911/28/2022 URINE CULTU RE report Speci ricardo Triplett e: OBR-1 5--1 Colle cted: Nov 25, 2022 ----- ----- ----- ----- ----- ----- ----- ----- ----- ----- ----- ----- ----- ----- ----- ----- Organ ism: STAPH YLOCO CCUS AUREU S-MRS A Antib iotic s Unkno wn Inter preta tion ----- ----- ----- ----- ----- ----- ----- ----- ----- ----- ----- ----- ----- ----- ----- ----- TRIME THOPR IM/HUDDLESTON LFAME THOXA ZOLE <=10 Sensi tive OXACI LLIN Resis tant CIPRO FLOXA RYAN <=0.5 Sensi tive GENTA MICIN <= 0.5 Sensi tive LEVOF LOXAC IN 1 Sensi tive LINEZ OLID 4 Sensi tive MOXIF LOXAC IN <=0.2 5 Sensi tive NITRO FURAN TOIN <=16 Sensi tive PENIC ILLIN >=0.5 Resis tant TETRA CYCLI NE <=1 Sensi tive VANCO MYCIN <=0.5 Sensi tive QUINU PRIST IN/DA LFOPR ISTIN 0.5 Sensi tive RIFAM PIN <=0.5 Sensi tive Not Available [facility] [address] [place] [address], [address], 11/28/2022 09:24:01 11/26/19 23 11/26/2022 VAGIN OSIS DNA PANEL trichomonas vaginalis NEGATI VE negati ve Not Available [facility] [address] [place] [address], [address], 11/26/2022 13:58:41 11/26/19 23 11/26/2022 VAGIN OSIS DNA PANEL garderella vaginalis POSITI VE negati ve abnormal Not Available [facility] [address] [place] [address], [address], 11/26/2022 13:58:41 11/26/19 23 11/26/2022 VAGIN OSIS DNA PANEL josh species NEGATI VE negati ve Not Available [facility] [address] [place] [address], [address], 11/26/2022 13:58:41 11/26/19 23 11/26/2022 VAGIN OSIS DNA PANEL performing lab Perfor sharan [facility] atori es, a [facility] Of [address] [place] [address] Medic al Dire sivakumar bellamy MD Not Available [facility] [address] [place] [address], [address], 11/26/2022 13:58:41 11/30/1911/29/2022 MRSA SURVE ILLAN CE PCR MRSA surveillance PCR MRSA PCR NOT DETEC JUDY Not Available [facility] [address] [place], [address], 11/29/2022 21:56:48 11/30/1911/29/2022 MRSA SURVE ILLAN CE PCR performing lab Perfor shar[facility] atorfernanda darling, yumiko membe r of [facility] [address] [facility] [place] [address] Medic al Dire sivakumar bellamy MD Not Available [facility] [address] [place], [address], 11/29/2022 21:56:48 11/30/1911/30/2022 CHLAM YDIA DNA SWAB chlamydia DNA swab NEGATI VE negati ve Not Available [facility] [address] [place] [address], [address], 11/30/2022 10:31:02 11/30/1911/30/2022 GC DNA SWAB GC DNA swab NEGATI VE negati ve Not Available [facility] [address] [place] [address], [address], 11/30/2022 10:31:03 11/30/1911/30/2022 GC DNA SWAB performing lab Perfor sharan [facility] yumiko howard membe mary of [facility] [address] [facility] [place] [address] Medic al Direbrien bellamy MD Not Available [facility] [address] [place], [address], 11/30/2022 10:31:03 12/07/1912/06/2022 WOUND CULTU RE wound culture TNP Not Available [facility] [address] [place] [address], [address], 12/06/2022 19:52:45 12/07/19 23 12/06/2022 WOUND CULTU RE performing lab PERFOR [facility] atori es, a membe r of [facility] [address] [place] [address] Medic al Direc sivakumar bellamy MD Not Available [facility] [address] [place] [address], [address], 12/06/2022 19:52:45 12/07/1912/07/2022 VAGIN OSIS DNA PANEL trichomonas vaginalis NEGATI VE negati ve Not Available [facility] [address] [place] [address], 04[address], 12/07/2022 12:28:56 12/07/1912/07/2022 VAGIN OSIS DNA PANEL garderella vaginalis POSITI VE negati ve abnormal Not Available [facility] [address] [place] [address], 307[address], 12/07/2022 12:28:56 12/07/1912/07/2022 VAGIN OSIS DNA PANEL josh species NEGATI VE negati ve Not Available [facility] [address] [place] [address], [address], 12/07/2022 12:28:56 12/07/1912/07/2022 VAGIN OSIS DNA PANEL performing lab PERFOR [facility] ishmael darling, [facility] [address] [place] [address] Medic al Direc sivakumar bellamy MD Not Available [facility] [address] [place] [address], [address], 12/07/2022 12:28:56 12/07/1912/13/2022 HERPE S CULTU RE herpes culture source DERMAL - FACE Not Available [facility] [address] [place] [address], [address], 12/13/2022 09:38:09 12/07/1912/13/2022 HERPE S CULTU RE herpes culture interpretati on NO GROWTH no growth This metho d utili zes stand fausto tube cultu re metho ds with monoc lonal antib aly stain ing of CPE-p ositi ve cells . This proce dure can detec t and diffe renti ate herpe s type 1 and herpe s type 2. Other virus es prese nt in the speci men will not be ident ified . A negat kb resul t does not precl ude viral infec tion. The viabi lity of viral agent s can be degra ded if speci mens are impro perly colle cted or store d. The numbe r of viabl e virus parti cles may be below the detec tion thres hold. Test perfo rmed at [facility] , [address] , [place] [address] [phone] Katiuska payne MD, PhD - Medic al Direc tor Not Available [facility] [address] [place] [address], [address], 12/13/2022 09:38:09 12/07/19 23 12/13/2022 HERPE S CULTU RE performing lab PERFOR [facility] atori es, a [facility] Of [address] [place] [address] Medic al Direc tor - Mey bellamy MD Not Available [facility] [address] [place] [address], [address], 12/13/2022 09:38:09 12/23/19 23 12/22/2022 URINA LYSIS glucose, (UA) NEGATI VE mg/dL negati ve Not Available [facility] [address] [place] [address], 57[address], 12/22/2022 19:10:22 12/23/19 23 12/22/2022 URINA LYSIS bilirubin, urine NEGATI VE negati ve Not Available [facility] [address] [place] [address], 81159, 12/22/2022 19:10:22 12/23/19 23 12/22/2022 URINA LYSIS ketone, urine NEGATI VE mg/dL negati ve Not Available [facility] [address] [place] [address], 17572, 12/22/2022 19:10:22 12/23/19 23 12/22/2022 URINA LYSIS specific gravity, urine 1.018 1.003- 1.030 Not Available [facility] [address] [place], [address], 12/22/2022 19:10:22 12/23/19 23 12/22/2022 URINA LYSIS blood, urine NEGATI VE negati ve Not Available [facility] [address] [place], [address], 12/22/2022 19:10:22 12/23/19 23 12/22/2022 URINA LYSIS pH, urine 6.5 5.0-8. 0 Not Available [facility] [address] [place], [address], 12/22/2022 19:10:22 12/23/19 23 12/22/2022 URINA LYSIS protein, urine NEGATI VE mg/dL <= trace Not Available [facility] [address] [place], [address], 12/22/2022 19:10:22 12/23/19 23 12/22/2022 URINA LYSIS urobilinogen , urine 0.2 E.U./ dL 0.2-1. 0 Not Available [facility] [address] [place], [address], 12/22/2022 19:10:22 12/23/19 23 12/22/2022 URINA LYSIS nitrite, urine NEGATI VE negati ve Not Available [facility] [address] [place], [address], 12/22/2022 19:10:22 12/23/19 23 12/22/2022 URINA LYSIS leukocyte esterase, urine MODERA TE negati ve abnormal Not Available [facility] [address] [place], [address], 12/22/2022 19:10:22 12/23/19 23 12/22/2022 URINA LYSIS RBC, urine 3 /hpf 0-4 Not Available [facility] [address] [place], [address], 12/22/2022 19:10:22 12/23/19 23 12/22/2022 URINA LYSIS WBC, urine 69 /hpf 0-4 high Not Available [facility] [address] [place] [address], [address], 12/22/2022 19:10:22 12/23/19 23 12/22/2022 URINA LYSIS epith cells, urine 18 /lpf 0-60 Not Available [facility] [address] [place] [address], 95457, 12/22/2022 19:10:22 12/23/19 23 12/22/2022 URINA LYSIS bacteria, urine HEAVY negati ve abnormal Not Available [facility] [address] [place] [address], 40783, 12/22/2022 19:10:22 12/23/19 23 12/22/2022 URINA LYSIS hyaline cast, urine 4 /lpf 0-3 high Not Available [facility] [address] [place] [address], 290[address], 12/22/2022 19:10:22 12/23/19 23 12/22/2022 URINA LYSIS performing lab Perfor [facility]an [facility] yumiko howard membe r of [employer] [address] [place] [address] Medic al Direbrien bellamy MD Not Available [facility] [address] [place] [address], [address], 12/22/2022 19:10:22 12/23/19 23 12/22/2022 URINE CULTU RE performing lab Perfor shar[facility] yumiko howard membe r of [facility] [address] [place] [address] Medic al Direbrien bellamy MD Not Available [facility] [address] [place] [address], [address], 12/24/2022 10:46:56 12/23/1912/24/2022 URINE CULTU RE urine culture Cefaz loli with an NERISSA <=16 predi cts susce ptibi lity to the oral agent s Cefac susi, Cefdi vi, Cefpo doxim e, Cefpr ozil, Cefur oxime , Cepha lexin , and Lorac arbef when used for thera py of uncom plica judy UTIs due to E. coli, K. pneum oniae , and P. mirab ilis. AYAN Cao COLI Not Available [facility] [address] [place], [address], 12/24/2022 10:46:56 12/23/1912/24/2022 URINE CULTU RE urine culture cfu/m L COLON Y COUNT >100, 000 Not Available [facility] [address] [place], [address], 12/24/2022 10:46:56 12/23/1912/24/2022 URINE CULTU RE report Speci ricardo Triplett e: OBR-1 5-1-1 Colle cted: Dec 22, 2022 ----- ----- ----- ----- ----- ----- ----- ----- ----- ----- ----- ----- ----- ----- ----- ----- Organ ism: AYAN NUNEZ A COLI Antib iotic s Unkno wn Inter preta tion ----- ----- ----- ----- ----- ----- ----- ----- ----- ----- ----- ----- ----- ----- ----- ----- TRIME THOPR IM/HUDDLESTON LFAME THOXA ZOLE <=20 Sensi tive AMOXI CILLI N/CLA VULAN IC ACID <=2 Sensi tive AMPIC ILLIN /SULB ACTAM <=2 Sensi tive CEFAZ LOLI <=4 Sensi tive CEFOX ITIN <=4 Sensi tive CEFTA ZIDIM E <=1 Sensi tive CEFTR IAXON E <=0.2 5 Sensi tive CEFEP CHEKO <=0.1 2 Sensi tive CIPRO FLOXA RYAN <=0.0 6 Sensi tive GENTA MICIN <=1 Sensi tive LEVOF LOXAC IN <=0.1 2 Sensi tive MEROP ENEM <=0.2 5 Sensi tive NITRO FURAN TOIN <=16 Sensi tive AMIKA RYAN 2 Sensi tive PIPER ACILL IN/TA ZOBAC THOMAS <=4 Sensi tive Not Available [facility] [address] [place] [address], [address], 12/24/2022 10:46:56 12/23/19 23 12/23/2022 VAGIN OSIS DNA PANEL trichomonas vaginalis NEGATI VE negati ve Not Available [facility] [address] [place] [address], 38[address], 12/23/2022 13:37:40 12/23/19 23 12/23/2022 VAGIN OSIS DNA PANEL garderella vaginalis POSITI VE negati ve abnormal Not Available [facility] [address] [place] [address], 58578, 12/23/2022 13:37:40 12/23/19 23 12/23/2022 VAGIN OSIS DNA PANEL josh species POSITI VE negati ve abnormal Not Available [facility] [address] [place] [address], 32463, 12/23/2022 13:37:40 12/23/19 23 12/23/2022 VAGIN OSIS DNA PANEL performing lab Perfor sharan [facility] haydeni es, a [facility]ina [facility] Of [address] [place] [address] Medic al Direc sivakumar bellamy MD Not Available [facility] [address] [place] [address], [address], 12/23/2022 13:37:40 12/23/1912/24/2022 CHLAM YDIA DNA URINE chlamydia DNA urine NEGATI VE negati ve Not Available [facility] [address] [place], [address], 12/24/2022 12:54:02 12/23/19 23 12/24/2022 GC DNA URINE GC DNA urine NEGATI VE negati ve Not Available [facility] [address] [place], [address], 12/24/2022 12:54:03 12/23/1912/24/2022 GC DNA URINE performing lab Perfor sharan [facility] atori es, a membe r of [facility] [address] [place] [address] Medic al Tank bellamy MD Not Available [facility] [address] [place] [address], [address], 12/24/2022 12:54:03 02/01/20 23 01/31/2023 WOUND CULTU RE performing lab Perfor sharan [facility] at[facility] es, a membe r of [employer] [address] [place] [address] Medic al Direbrien bellamy MD Not Available [facility] [address] [place], [address], 02/03/2023 10:10:08 02/01/20 23 02/03/2023 WOUND CULTU RE wound culture FINAL : No patho gens noted ALYSE L SKIN SHAHEEN PRESE NT GRAM STAIN RESUL T NO POLYS , NO EPITH ELIAL CELLS , NO ORGAN ISMS NOTED Not Available [facility] [address] [place] [address], 347[address], 02/03/2023 10:10:08 02/01/20 23 02/08/2023 HERPE S CULTU RE herpes culture source See Below RESUL T: Mize l - Upper Lip Not Available [facility] [address] [place] [address], 20718, 02/08/2023 15:02:35 02/01/20 23 02/08/2023 HERPE S CULTU RE herpes culture interpretati on No Growth no growth This metho d utili zes stand fausto tube cultu re metho ds with monoc lonal antib aly stain ing of CPE-p ositi ve cells . This proce dure can detec t and diffe renti ate herpe s type 1 and herpe s type 2. Other virus es prese nt in the speci men will not be ident ified . A negat kb resul t does not precl ude viral infec tion. The viabi lity of viral agent s can be degra ded if speci mens are impro perly colle cted or store d. The numbe r of viabl e virus parti cles may be below the detec tion thres hold. Test perfo rmed at [facility] , [address] , [place] [address] [phone] Katiuska payne MD, PhD - Medic al Direc tor Not Available [facility] [address] [place] [address], [address], 02/08/2023 15:02:35 02/01/20 23 02/08/2023 HERPE S CULTU RE performing lab Perfor [facility] at[facility] es, a [facility] [address] [place] [address] Medic al Direc tor - Mey bellamy MD Not Available [facility] [address] [place], [address], 02/08/2023 15:02:35 03/02/19 24 03/02/2023 URINA LYSIS glucose, (UA) NEGATI VE mg/dL negati ve Not Available [facility] [address] [place], [address], 03/02/2023 19:29:10 03/02/19 24 03/02/2023 URINA LYSIS bilirubin, urine NEGATI VE negati ve Not Available [facility] [address] [place] [address], 26406, 03/02/2023 19:29:10 03/02/19 24 03/02/2023 URINA LYSIS ketone, urine NEGATI VE mg/dL negati ve Not Available [facility] [address] [place], [address], 03/02/2023 19:29:10 03/02/19 24 03/02/2023 URINA LYSIS specific gravity, urine 1.021 1.003- 1.030 Not Available [facility] [address] [place] [address], 98221, 03/02/2023 19:29:10 03/02/19 24 03/02/2023 URINA LYSIS blood, urine TRACE negati ve Not Available [facility] [address] [place] [address], 02723, 03/02/2023 19:29:10 03/02/19 24 03/02/2023 URINA LYSIS pH, urine 5.5 5.0-8. 0 Not Available [facility] [address] [place] [address], 83178, 03/02/2023 19:29:10 03/02/19 24 03/02/2023 URINA LYSIS protein, urine TRACE mg/dL <= trace Not Available [facility] [address] [place] [address], 60609, 03/02/2023 19:29:10 03/02/19 24 03/02/2023 URINA LYSIS urobilinogen , urine 0.2 E.U./ dL 0.2-1. 0 Not Available [facility] [address] [place] [address], 26338, 03/02/2023 19:29:10 03/02/19 24 03/02/2023 URINA LYSIS nitrite, urine POSITI VE negati ve abnormal Not Available [facility] [address] [place] [address], 29001, 03/02/2023 19:29:10 03/02/19 24 03/02/2023 URINA LYSIS leukocyte esterase, urine TRACE negati ve abnormal Not Available [facility] [address] [place] [address], 40943, 03/02/2023 19:29:10 03/02/19 24 03/02/2023 URINA LYSIS RBC, urine 4 /hpf 0-4 Not Available [facility] [address] [place] [address], 25509, 03/02/2023 19:29:10 03/02/19 24 03/02/2023 URINA LYSIS WBC, urine 21 /hpf 0-4 high Not Available [facility] [address] [place] [address], 89737, 03/02/2023 19:29:10 03/02/19 24 03/02/2023 URINA LYSIS epith cells, urine > 150 /lpf 0-60 high Not Available [facility] [address] [place] [address], 91066, 03/02/2023 19:29:10 03/02/19 24 03/02/2023 URINA LYSIS bacteria, urine HEAVY negati ve abnormal Not Available [facility] [address] [place] [address], 01600, 03/02/2023 19:29:10 03/02/19 24 03/02/2023 URINA LYSIS hyaline cast, urine 14 /lpf 0-3 high Not Available [facility] [address] [place] [address], 56355, 03/02/2023 19:29:10 03/02/19 24 03/02/2023 URINA LYSIS performing lab Perfor [facility]an [facility] at[facility], a [facility] Of [address] [place] [address] Medic al Dire sivakumar bellamy MD Not Available [facility] [address] [place] [address], 52506, 03/02/2023 19:29:10 03/13/19 24 03/14/2023 VAGIN OSIS DNA PANEL trichomonas vaginalis NEGATI VE negati ve Not Available [facility] [address] [place] [address], 83438, 03/14/2023 12:01:24 03/13/19 24 03/14/2023 VAGIN OSIS DNA PANEL garderella vaginalis POSITI VE negati ve abnormal Not Available [facility] [address] [place] [address], 94355, 03/14/2023 12:01:24 03/13/19 24 03/14/2023 VAGIN OSIS DNA PANEL josh species POSITI VE negati ve abnormal Not Available [facility] [address] [place] [address], 73942, 03/14/2023 12:01:24 03/13/19 24 03/14/2023 VAGIN OSIS DNA PANEL performing lab Perfor [facility] atorfernanda darling, a membe r of [employer] [place] [address] Medic al Direbrien bellamy MD Not Available [facility] [address] [place] [address], 31670, 03/14/2023 12:01:24 03/13/19 24 03/13/2023 URINE CULTU RE performing lab Perfor [facility] atorfernanda darling, a membe r of [employer] [address] [place] [place] [address] Medic al Tank bellamy MD Not Available [facility] [address] [place] [address], [id number], 03/15/2023 12:57:50 03/13/19 24 03/15/2023 URINE CULTU RE urine culture Cefaz loli with an NERISSA <=16 predi cts susce ptibi lity to the oral agent s Cefac susi, Cefdi vi, Cefpo doxim e, Cefpr ozil, Cefur oxime , Cepha lexin , and Lorac arbef when used for thera py of uncom plica judy UTIs due to E. coli, K. pneum oniae , and P. mirab ilis. ESCHE MAYRA A COLI Not Available [facility] [address] [place] [address], [id number], 03/15/2023 12:57:50 03/13/19 24 03/15/2023 URINE CULTU RE urine culture cfu/m L COLON Y COUNT >100, 000 Not Available [facility] [address] [place] [address], [place], [id number], 03/15/2023 12:57:50 03/13/19 24 03/15/2023 URINE CULTU RE report Speci men Sourc e: OBR-1 5-1-1 Colle cted: Mar 13, 2023 ----- ----- ----- ----- ----- ----- ----- ----- ----- ----- ----- ----- ----- ----- ----- ----- Organ ism: ESCHE MAYRA A COLI Antib iotic s Unkno wn Inter preta tion ----- ----- ----- ----- ----- ----- ----- ----- ----- ----- ----- ----- ----- ----- ----- ----- TRIME THOPR IM/HUDDLESTON LFAME THOXA ZOLE <=20 Sensi tive AMOXI CILLI N/CLA VULAN IC ACID <=2 Sensi tive AMPIC ILLIN /SULB ACTAM <=2 Sensi tive CEFAZ LOLI <=4 Sensi tive CEFOX ITIN <=4 Sensi tive CEFTA ZIDIM E <=1 Sensi tive CEFTR IAXON E <=0.2 5 Sensi tive CEFEP CHEKO <=0.1 2 Sensi tive CIPRO FLOXA RYAN <=0.0 6 Sensi tive GENTA MICIN <=1 Sensi tive LEVOF LOXAC IN <=0.1 2 Sensi tive MEROP ENEM <=0.2 5 Sensi tive NITRO FURAN TOIN <=16 Sensi tive AMIKA RYAN 2 Sensi tive PIPER ACILL IN/TA ZOBAC THOMAS <=4 Sensi tive Not Available [facility] [address] [place] [address], [id number], 03/15/2023 12:57:50 01/02/2001/02/2024 URINA LYSIS MICRO SCOPI C ONLY RBC, urine 4.2 /hpf 0-4 high Not Available [facility] [address] [place] [address], [id number], 01/02/2024 19:34:08 01/02/20 24 01/02/2024 URINA LYSIS MICRO SCOPI C ONLY WBC, urine 1.5 /hpf 0-4 Not Available [facility] [address] [place] [address], [id number], 01/02/2024 19:34:08 01/02/20 24 01/02/2024 URINA LYSIS MICRO SCOPI C ONLY squamous epithelial, urine 71 /lpf 0-60 high Not Available [facility] [address] [place] [address], [id number], 01/02/2024 19:34:08 01/02/20 24 01/02/2024 URINA LYSIS MICRO SCOPI C ONLY bacteria, urine Negati ve /hpf negati ve Not Available [facility] [address] [place] [address], [id number], 01/02/2024 19:34:08 01/02/20 24 01/02/2024 URINA LYSIS MICRO SCOPI C ONLY hyaline casts, urine 2.4 /lpf 0-3 Not Available [facility] [address] [place] [address], [id number], 01/02/2024 19:34:08 01/02/20 24 01/02/2024 URINA LYSIS MICRO SCOPI C ONLY note See Report [facility] [address] [facility], [place] [facility], [place] [id number] Not Available [facility] [address] [place] [address], [id number], 01/02/2024 19:34:08 01/02/20 24 01/02/2024 CULTU RE URINE .note See Note Origi nal Order ing Provi javier: ASIM WELCH YANNA [facility] - [facility] - [address] [facility], [facility] [place] [id number] Not Available [facility] [address] [place], [id number], 01/04/2024 11:55:59 01/02/20 24 01/02/2024 CULTU RE URINE culture, urine No growth Not Available [facility] [address] [place], [id number], 01/04/2024 11:55:59 01/02/20 24 01/02/2024 VAGIN ITIS PATHO GENS MOLEC ULAR STUDY .note See Note Origi nal Order ing Provi javier: ASIM WELCH YANNA [facility] - [facility] - [address] [facility], [facility] [place] [id number] Not Available [facility] [address] [place], [address], 01/04/2024 11:13:59 01/02/20 24 01/02/2024 VAGIN ITIS PATHO GENS MOLEC ULAR STUDY trichomonas vaginalis Negati ve negati ve Not Available [facility] [address] [place] [address], [id number], 01/04/2024 11:13:59 01/02/20 24 01/02/2024 VAGIN ITIS PATHO GENS MOLEC ULAR STUDY gardnerella vaginalis Positi ve negati ve abnormal Not Available [facility] [address] [place] [address], [id number], 01/04/2024 11:13:59 01/02/20 24 01/02/2024 VAGIN ITIS PATHO GENS MOLEC ULAR STUDY josh species Negati ve negati ve Not Available [facility] [address] [place] [address], [id number], 01/04/2024 11:13:59 Result Notes None recorded. Problems Name Problem SNOMED Code Status Onset Date Resolution Date Notes Provider Name and Address Organization Details Recorded Time Bacteria l vaginosi s [id number] Active 2022 Belen Vera MD [address] [facility] [place] [place], [address] , [place] AQUILES VERA MD [facility] 3 16:49:24 Urinary tract infectio us disease 62925614 Active 2022 Belen Vera MD [address] [facility] [place], [address] , [place] AQUILES VERA MD [facility] 3 16:49:28 Genital herpes simplex 82905747 Active 2022 Belen Vera MD [address] [facility] [place], [address] , [place] AQUILES VERA MD [facility] [address] 02:25:[address] Concept Active 2017 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; 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; Report Immunity to Registry : Yes; Notes: 7; Not Available [facility] 4 06:57:37 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; snomedde 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; Report Immunity to Registry : Yes; Notes: 7; Carrier of Group B streptoc occus; snomedde 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; Report Immunity to Registry : Yes; Notes: 7; Not Available [facility] 4 06:57:37 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; 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; Report Immunity to Registry : Yes; Notes: 7; Not Available [facility] 4 06:57:37 Acute vaginiti s 49057384 Active 2016 Acute vaginiti s; snomedde scriptio n: Gardnere lla vaginiti s; Report Immunity to Registry : Yes; Notes: keyla payne; Not Available [facility] 4 06:57:37 Abscess of skin and/or subcutan eous tissue 17347120 Active 2013 Abscess of skin AND/OR subcutan eous tissue; snomedde scriptio n: Abscess of skin AND/OR subcutan eous tissue; Report Immunity to Registry : Yes; Not Available [facility] 4 06:57:37 Cellulit is 187698624 Active 2013 Cellulit is and abscess of unspecif ied sites; snomedde scriptio n: Abscess of skin AND/OR subcutan eous tissue; Report Immunity to Registry : Yes; Not Available [facility] 4 06:57:37 Gardnere lla vaginiti s 300296528 Active 2016 Gardnere lla vaginiti s; snomedde scriptio n: Gardnere lla vaginiti s; Report Immunity to Registry : Yes; Notes: gardenjason la; Not Available [facility] 4 06:57:38 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 263353085 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; snomedde scriptio n: 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; Report Immunity to Registry : Yes; Notes: MRSA screen negative 10/02 past hx.; Not Available [facility] 4 06:57:38 Candidia sis of vagina 28592108 Active 2016 Candidia sis of vagina; snomedde scriptio n: Candidia sis of vagina; Report Immunity to Registry : Yes; Notes: 10/2016; Not Available [facility] 4 06:57:38 Kidney stone 46498272 Active 2013 Calculus of kidney; snomedde scriptio n: Kidney stone; Report Immunity to Registry : Yes; Kidney stone; snomedde scriptio n: Kidney stone; Report Immunity to Registry : Yes; Not Available [facility] 4 06:57:38 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 08259205 Active 2017 Carrier or suspecte d carrier of other specifie d bacteria l diseases ; snomedde scriptio n: 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; Report Immunity to Registry : Yes; Notes: MRSA screen negative 10/02 past hx.; Not Available [facility] 4 06:57:38 Candidal vulvovag initis 80112567 Active 2016 Candidia sis of vulva and vagina; snomedde scriptio n: Candidia sis of vagina; Report Immunity to Registry : Yes; Notes: 10/2016; Not Available [facility] 4 06:57:38 Medullar y sponge kidney 514991203 Active 2013 Medullar y sponge kidney; snomedde scriptio n: Medullar y sponge kidney; Report Immunity to Registry : Yes; Not Available [facility] 4 06:57:38 Urinary tract infectio us disease 84664130 Completed 202204/12/2023 Urinary tract infectio n, site not specifie d; snomedde scriptio n: Urinary tract infectio us disease; Report Immunity to Registry : Yes; Notes: E coli 05/2011; 09/2019 susc nitrofur antoin; amp; bactrim; ESBL neg; gent; levo; recurren t; e coli 12/10 geno bactrim/ nitro/le vo; 06/2021; 12/11 E coli; Urinary tract infectio us disease; snomedde scriptio n: Urinary tract infectio us disease; Report Immunity to Registry : Yes; Notes: E coli 05/2011; 09/2019 susc nitrofur antoin; amp; bactrim; ESBL neg; gent; levo; recurren t; e coli 12/10 geno bactrim/ nitro/le vo; 06/2021; 12/11 E coli; Urinary tract infectio us disease; snomedde scriptio n: Urinary tract infectio us disease; Report Immunity to Registry : Yes; ReasonDa te: 04/01/19 23; Urinary tract infectio n, site not specifie d; snomedde scriptio n: Urinary tract infectio us disease; Report Immunity to Registry : Yes; ReasonDa te: 04/01/19 23; Not Available [facility] 4 06:57:38 Diabetes mellitus 57736756 Active 2013 Diabetes mellitus ; snomedde scriptio n: Diabetes mellitus ; Report Immunity to Registry : Yes; Not Available [facility] 4 06:57:39 Type 2 diabetes mellitus without complica tion 094098169 Active 2013 Diabetes mellitus without mention of complica tion, type II or unspecif ied type, not stated as uncontro lled; snomedde scriptio n: Diabetes mellitus ; Report Immunity to Registry : Yes; Not Available [facility] 4 06:57:39 Problem Notes None recorded. Medical Equipment None Reported. Medications Name Sig Start Date Stop Date Status Note LastModified by Organization Details LastModified Time amoxicill in 500 mg capsule TAKE 1 CAPSULE BY MOUTH 3 TIMES A DAY FOR 7 DAYS active Not Available Not Available No t Available fluconazo le 100 mg tablet TAKE 1 TABLET BY MOUTH EVERY WEEK active Not Available Not Available No t Available terconazo le 0.4 % vaginal cream INSERT 1 APPLICAT OR INTO THE VAGINA AT BEDTIME FOR 7 DAYS. active Not Available Not Available No t Available prednison e 10 mg tablet TAB 10MG; Quantity : 40; Duration : 16; 0 refill(s ) active Not Available Not Available No t Available doxycycli ne hyclate 100 mg capsule Take 1 capsule twice a day by oral route for 14 days. 2022 active Not Available Not Available Not Avai lable cefuroxim e axetil 250 mg tablet TAKE 1 TABLET BY MOUTH TWICE A DAY active Not Available Not Available No t Available cetirizin e 10 mg tablet TAKE 1 TABLET BY MOUTH EVERY DAY NEEDED FOR ALLERGIE S active Not Available Not Available No t Available azithromy ryan 250 mg tablet TAB 250MG; Quantity : 6; Duration : 3; 0 refill(s ) 08/31 completed Duration : 3; VACCINE_ IND: no; Not Available Not Available Not Available levalbute rol 0.63 mg/3 mL solution for nebulizat ion 0.63 mg/3 mL Quantity : 288; Duration : 30; 0 refill(s ) 05/08 completed Duration : 30; VACCINE_ IND: no; Not Available Not Available Not Available ibuprofen 800 mg tablet TAB 800MG; Quantity : 30; Duration : 10; 0 refill(s ) 10/18 completed Duration : 10; VACCINE_ IND: no; Not Available Not Available Not Available fluconazo le 150 mg tablet TAB 150MG; Quantity : 1; Duration : 1; 0 refill(s ) 12/17 completed Duration : 1; VACCINE_ IND: no; Not Available Not Available Not Available valacyclo vir 1 gram tablet TAB 1GM; Quantity : 10; Duration : 5; 0 refill(s ) 11/24 completed Duration : 5; VACCINE_ IND: no; Not Available Not Available Not Available metronida zole 0.75 % (37.5 mg/5 gram) vaginal gel Insert 1 applicat orful every day by vaginal route for 7 days, for BV. active Not Available Not Available No t Available ondansetr on HCl 4 mg tablet TAKE 1 TABLET BY MOUTH TWICE A DAY NEEDED FOR NAUSEA AND VOMITING 06/29 completed Duration : 15; VACCINE_ IND: no; SU_FULL_ NAME: Belen Martevelyn leon; Not Available Not Available Not Available prednison e 20 mg tablet TAKE 2 TABLETS (40 MG) BY MOUTH ONCE PER DAY FOR 5 DAYS. active Not Available Not Available No t Available terconazo le 0.8 % vaginal cream 0.8 Quantity : 20; Duration : 3; 0 refill(s ) 12/17 completed Duration : 3; VACCINE_ IND: no; Not Available Not Available Not Available olanzapin e 5 mg tablet TAKE 1 TABLET BY MOUTH EVERYDAY AT BEDTIME active Not Available Not Available No t Available clonazepa m 1 mg tablet TAKE 1 TABLET BY MOUTH TWICE A DAY NEEDED active Not Available Not Available No t Available atenolol 25 mg tablet 25 mg Quantity : ; 0 refill(s ) 04/08 completed Frequenc y: qd; VACCINE_ IND: no; SU_FULL_ NAME: PCP; Not Available Not Available Not Available olanzapin e 10 mg tablet TAKE 1 TABLET BY MOUTH EVERYDAY AT BEDTIME active Not Available Not Available No t Available metronida zole 500 mg tablet Take 1 tablet twice a day by oral route for 7 days. active Not Available Not Available No t Available allopurin ol 100 mg tablet 100MG TABLET; Quantity : 90; Duration : 90; 0 refill(s ) 05/29 completed Duration : 90; VACCINE_ IND: no; Not Available Not Available Not Available omeprazol e 40 mg capsule,d elayed release TAKE 1 CAPSULE BY MOUTH DAILY active Not Available Not Available No t Available doxycycli ne monohydra te 100 mg tablet MONO TAB 100MG; Quantity : 14; Duration : 7; 0 refill(s ) 10/18 completed Duration : 7; VACCINE_ IND: no; Not Available Not Available Not Available tramadol 50 mg tablet HCL 50MG TABLET; Quantity : 6; Duration : 2; 0 refill(s ) 08/08 completed Duration : 2; VACCINE_ IND: no; Not Available Not Available Not Available quetiapin e 100 mg tablet TAKE 1 TABLET BY MOUTH EVERYDAY AT BEDTIME active Not Available Not Available No t Available triamcino lone acetonide 0.1 % topical cream 0.1 Quantity : 30; Duration : 15; 0 refill(s ) 10/18 completed Duration : 15; VACCINE_ IND: no; Not Available Not Available Not Available Antivert 12.5 mg tablet 12.5 mg Quantity : 30; 0 refill(s ) 07/04 completed Frequenc y: qd; VACCINE_ IND: no; SU_FULL_ NAME: Belen leon; Not Available Not Available Not Available nystatin- triamcino lone 100,000 unit/gram -0.1 % topical ointment 265010 units/g- 0.1% Quantity : 1; 1 refill(s ) 03/04 completed Frequenc y: qd; VACCINE_ IND: no; SU_FULL_ NAME: Belen leon; Not Available Not Available Not Available Miconazol e-7 2 % vaginal cream INSERT 1 APPLICAT ORFUL VAGINALL Y EVERY DAY FOR 7 DAYS active Not Available Not Available No t Available oxycodone -acetamin ophen 5 mg-325 mg tablet TABLET; Quantity : 30; Duration : 3; 0 refill(s ) 06/02 completed Duration : 3; VACCINE_ IND: no; Not Available Not Available Not Available lorazepam 0.5 mg tablet .5MG TABLET; Quantity : 60; Duration : 30; 0 refill(s ) 05/29 completed Duration : 30; VACCINE_ IND: no; Not Available Not Available Not Available Lidoderm 5 % topical patch 5% Quantity : 30; Duration : 30; 3 refill(s ) 11/24 completed Frequenc y: qd; Duration : 30; VACCINE_ IND: no; SU_FULL_ NAME: Belen leon; Not Available Not Available Not Available tamsulosi n 0.4 mg capsule TAKE 1 CAPSULE BY MOUTH EVERY DAY 05/08 completed Duration : 5; VACCINE_ IND: no; Not Available Not Available Not Available Astro ApeToDucksboard Test strips USE TO TEST BLOOD SUGAR TWICE A DAY active Not Available Not Available No t Available hydrocort isone 1 % topical cream APPLY TO AFFECTED AREA TWICE A DAY active Not Available Not Available No t Available cephalexi n 500 mg capsule TAKE 1 CAPSULE TWICE A DAY active Not Available Not Available No t Available oseltamiv ir 75 mg capsule 75 mg Quantity : 10; Duration : 5; 0 refill(s ) 05/08 completed Duration : 5; VACCINE_ IND: no; Not Available Not Available Not Available nitrofura ntoin macrocrys pablo 100 mg capsule 100 Quantity : 30; Duration : 30; 0 refill(s ) 08/16 completed Duration : 30; VACCINE_ IND: no; Not Available Not Available Not Available clotrimaz ole-betam ethasone 1 %-0.05 % topical cream 0 Quantity : 45; Duration : 7; 0 refill(s ) 11/24 completed Duration : 7; VACCINE_ IND: no; Not Available Not Available Not Available divalproe x ER 500 mg tablet,ex tended release 24 hr TAKE 1 TABLET BY MOUTH TWICE A DAY active Not Available Not Available No t Available glucose 4 gram chewable tablet CHEW 4 TABLETS (16 G) IF NEEDED FOR LOW BLOOD SUGAR. active Not Available Not Available No t Available Ear Drops (carbamid e peroxide) 6.5 % ADMINIST ER 5-10 DROPS INTO AFFECTED EAR(S) IN THE MORNING FOR 4 DAYS. active Not Available Not Available No t Available nystatin- triamcino lone 100,000 unit/g-0. 1 % topical cream active Not Available Not Available Not Available mupirocin calcium 2 % topical cream APPLY A SMALL AMOUNT TO THE AFFECTED AREA BY TOPICAL ROUTE 2 TIMES PER DAY FOR 10 DAYS 2022 active Not Available Not Available Not Avai lable omeprazol e 20 mg capsule,d elayed release 20 mg Quantity : 30; Duration : 30; 0 refill(s ) 10/05 completed Duration : 30; VACCINE_ IND: no; Not Available Not Available Not Available Banophen 25 mg capsule TAKE 1 CAPSULE BY MOUTH THREE TIMES A DAY NEEDED FOR ALLERGIE S active Not Available Not Available No t Available Cleocin 2 % vaginal cream apply in affected area bid 11/30 completed VACCINE_ IND: no; SU_FULL_ NAME: Belen Robles carolyn; Not Available Not Available Not Available hydrocort isone 2.5 % topical cream APPLY TO AFFECTED AREAS OF FACE TWICE DAILY X1 WEEK ON, 1 WEEK OFF REPEAT NEEDED ONLY FOR FLARES active Not Available Not Available No t Available monteluka st 10 mg tablet SODIUM 10MG TABLET; Quantity : 30; Duration : 30; 0 refill(s ) 05/29 completed Duration : 30; VACCINE_ IND: no; Not Available Not Available Not Available Valtrex 500 mg tablet Take 1 tablet every day by oral route for 30 days. 2022 active Not Available Not Available Not Avai lable olanzapin e 15 mg tablet TAKE 1 TABLET BY MOUTH EVERYDAY AT BEDTIME active Not Available Not Available No t Available mupirocin 2 % topical ointment APPLY IN AFFECTED SKIN AREA TWICE A DAY NEEDED active Not Available Not Available No t Available digoxin 125 mcg (0.125 mg) tablet TAB 0.125MGD IGOXIN; Quantity : 30; Duration : 30; 0 refill(s ) 09/01 completed Duration : 30; VACCINE_ IND: no; Not Available Not Available Not Available pyridoxin e (vitamin B6) 100 mg tablet B-6TAB 100MG; Quantity : 90; Duration : 90; 0 refill(s ) 12/17 completed Duration : 90; VACCINE_ IND: no; Not Available Not Available Not Available metoprolo l succinate ER 25 mg tablet,ex tended release 24 hr TAKE 1 TABLET BY MOUTH EVERY DAY active Not Available Not Available No t Available levalbute rol 1.25 mg/3 mL solution for nebulizat ion 1.25 Quantity : 540; Duration : 90; 0 refill(s ) 08/16 completed Duration : 90; VACCINE_ IND: no; Not Available Not Available Not Available Vitamin B-6 50 mg tablet B-6 50MG TABLET; Quantity : 90; Duration : 90; 0 refill(s ) 05/29 completed Duration : 90; VACCINE_ IND: no; Not Available Not Available Not Available epinephri ne 0.3 mg/0.3 mL injection , auto-inje ctor INJECT DIRECTED FOR ANAPHYLA XIS AND CALL 911 active Not Available Not Available No t Available cefuroxim e axetil 500 mg tablet TAB 500MG; Quantity : 20; Duration : 10; 0 refill(s ) 03/04 completed Duration : 10; VACCINE_ IND: no; Not Available Not Available Not Available levofloxa ryan 500 mg tablet TAKE 1 TABLET EVERY DAY BY ORAL ROUTE FOR 7 DAYS, FOR UTI. active Not Available Not Available No t Available zolpidem 10 mg tablet TAKE 1 TABLET BY MOUTH EVERY DAY AT BEDTIME NEEDED active Not Available Not Available No t Available albuterol sulfate HFA 90 mcg/actua tion aerosol inhaler 108 Quantity : 8; Duration : 17; 0 refill(s ) 08/31 completed Duration : 17; VACCINE_ IND: no; Not Available Not Available Not Available Nasal Decongest ant (pseudoep hedrine) 30 mg tablet DECONG TAB 30MGCVS NASAL DECONGES TANT MAXIMUM STRENGTH ; Quantity : 15; Duration : 3; 0 refill(s ) 06/25 completed Duration : 3; VACCINE_ IND: no; Not Available Not Available Not Available ondansetr on 4 mg disintegr ating tablet TAB 4MG ODT; Quantity : 10; Duration : 3; 0 refill(s ) 03/04 completed Duration : 3; VACCINE_ IND: no; Not Available Not Available Not Available fluticaso ne propionat e 50 mcg/actua tion nasal spray,geno pension 50 Quantity : 16; Duration : 30; 0 refill(s ) 12/17 completed Duration : 30; VACCINE_ IND: no; Not Available Not Available Not Available metformin ER 500 mg tablet,ex tended release 24 hr TAKE 1 TABLET BY MOUTH EVERY EVENING WITH FOOD 04/22 completed Duration : 30; VACCINE_ IND: no; Not Available Not Available Not Available doxycycli ne hyclate 100 mg tablet active Not Available Not Available Not Available prazosin 2 mg capsule TAKE 1 CAPSULE BY MOUTH EVERYDAY AT BEDTIME active Not Available Not Available No t Available naproxen 500 mg tablet TAKE 1 TABLET BY MOUTH TWICE A DAY active Not Available Not Available No t Available Bactroban Nasal 2 % ointment 2% Quantity : 1; 3 refill(s ) 07/04 completed Frequenc y: bid; VACCINE_ IND: no; SU_FULL_ NAME: Belen Robles carolyn; Not Available Not Available Not Available amoxicill in 875 mg-potass ium clavulana te 125 mg tablet TAKE 1 TABLET BY MOUTH TWICE A DAY FOR 5 DAYS active Not Available Not Available No t Available amoxicill in 500 mg-potass ium clavulana te 125 mg tablet CLAVTAB 500-125; Quantity : 14; Duration : 7; 0 refill(s ) 04/01 completed Duration : 7; VACCINE_ IND: no; Not Available Not Available Not Available Reglan 5 mg tablet 1 tab po tid prn 04/01 completed Duration : 30; VACCINE_ IND: no; SU_FULL_ NAME: Belen leon; Not Available Not Available Not Available oxycodone 5 mg tablet TAB 5MG; Quantity : 7; Duration : 2; 0 refill(s ) 12/15 completed Duration : 2; VACCINE_ IND: no; Not Available Not Available Not Available NightTime Sleep Aid (diphenhy dramine) 25 mg tablet TAKE 1 TABLET (25 MG) BY MOUTH EVERY 6 (SIX) HOURS IF NEEDED FOR ITCHING OR ALLERGIE S. active Not Available Not Available No t Available divalproe x ER 250 mg tablet,ex tended release 24 hr TAKE 1 TABLET BY MOUTH TWICE A DAY active Not Available Not Available No t Available cyclobenz aprine 5 mg tablet TAKE 1 TABLET ORALLY 3 TIMES A DAY NEEDED FOR BODY PAIN FOR 7 DAYS active Not Available Not Available No t Available bupropion HCl XL 300 mg 24 hr tablet, extended release TAKE 1 TABLET BY MOUTH EVERY DAY IN THE MORNING active Not Available Not Available No t Available bupropion HCl XL 150 mg 24 hr tablet, extended release TAKE 1 TABLET BY MOUTH EVERY DAY IN THE MORNING active Not Available Not Available No t Available Alcohol Prep Pads USE ONCE DAILY IN THE MORNING active Not Available Not Available No t Available nitrofura ntoin monohydra te/macroc rystals 100 mg capsule TAKE 1 CAPSULE BY MOUTH TWICE A DAY FOR 7 DAYS active Not Available Not Available No t Available levalbute rol concentra te 1.25 mg/0.5 mL solution for nebulizat ion INHALE 1 VIAL VIA NEBULIZE R EVERY 4 HOURS WHILE AWAKE NEEDED active Not Available Not Available No t Available emtricita bine 200 mg-tenofo vir disoproxi l fumarate 300 mg tablet TAB 200-300; Quantity : 90; Duration : 90; 0 refill(s ) 03/04 completed Duration : 90; VACCINE_ IND: no; Not Available Not Available Not Available Flovent HFA 220 mcg/actua tion aerosol inhaler 220 Quantity : 12; Duration : 30; 0 refill(s ) 11/24 completed Duration : 30; VACCINE_ IND: no; Not Available Not Available Not Available levalbute rol HFA 45 mcg/actua tion aerosol inhaler INHALE 2 PUFFS EVERY 4 HOURS IF NEEDED FOR WHEEZING . active Not Available Not Available No t Available metronida zole 1 % topical gel APPLY WITH APPLICAT ION DAILY FOR 7 DAYS 08/23 completed Duration : 7; VACCINE_ IND: no; SU_FULL_ NAME: Belen Martevelyn leon; Not Available Not Available Not Available zolpidem ER 12.5 mg tablet,ex tended release,m ultiphase ERTAB 12.5MG; Quantity : 7; Duration : 7; 0 refill(s ) 06/29 completed Duration : 7; VACCINE_ IND: no; Not Available Not Available Not Available chlorhexi dine gluconate 0.12 % mouthwash 0.12 Quantity : 473; Duration : 17; 0 refill(s ) 12/17 completed Duration : 17; VACCINE_ IND: no; Not Available Not Available Not Available Singulair Quantity : ; 0 refill(s ) 04/08 completed Frequenc y: qd; VACCINE_ IND: no; SU_FULL_ NAME: pcp; Not Available Not Available Not Available Hibiclens use daily as directed x 6 weeks 05/29 completed VACCINE_ IND: no; SU_FULL_ NAME: Belen leon; Not Available Not Available Not Available Ambien Quantity : ; 0 refill(s ) 04/08 completed Frequenc y: qd prn; VACCINE_ IND: no; SU_FULL_ NAME: pcp; Not Available Not Available Not Available Doxycycli ne Quantity : ; 0 refill(s ) 01/13 completed VACCINE_ IND: no; Not Available Not Available Not Available cholecalc iferol (vitamin D3) 25 mcg (1,000 unit) tablet TAKE 1 TABLET (25 MCG) BY MOUTH IN THE MORNING active Not Available Not Available No t Available diclofena c 1 % topical gel APPLY TO THE AFFECTED AREA UP TO 4X/DAY NEEDED active Not Available Not Available No t Available Vagifem 10 mcg vaginal tablet 10 mcg Quantity : 30; Duration : 30; 3 refill(s ) 06/09 completed Frequenc y: qd; Duration : 30; VACCINE_ IND: no; SU_FULL_ NAME: Belen leon; Not Available Not Available Not Available Prevnar 13 (PF) 0.5 mL intramusc ular syringe - Quantity : ; 0 refill(s ) 05/08 completed VACCINE_ IND: yes; VACCINE_ NAME: Pneumoco ccal conjugat e PCV 13; SU_FULL_ NAME: Belen Martevelyn leon; VIS_DATE : 20:02:22 .0; Not Available Not Available Not Available butalbita l-acetami nophen-ca ffeine 50 mg-300 mg-40 mg capsule 300 mg-50 mg-40 mg Quantity : 5; Duration : 1; 0 refill(s ) 10/05 completed Duration : 1; VACCINE_ IND: no; Not Available Not Available Not Available Latuda 80 mg tablet TAB 80MG; Quantity : 30; Duration : 30; 0 refill(s ) 12/01 completed Duration : 30; VACCINE_ IND: no; Not Available Not Available Not Available [facility] spacer USE WITH INHALER DIRECTED active Not Available Not Available No t Available lidocaine 5 % topical ointment apply small amount in affected area bid as needed 12/15 completed Duration : 30; VACCINE_ IND: no; SU_FULL_ NAME: Belen leon; Not Available Not Available Not Available Tri-Estar ylla (28) 0.18 mg(7)/0.2 15 mg(7)/0.2 5 mg(7)-35 mcg tablet TAB; Quantity : 84; Duration : 84; 0 refill(s ) 08/16 completed Duration : 84; VACCINE_ IND: no; Not Available Not Available Not Available cefixime 400 mg capsule 400 Quantity : 7; Duration : 7; 0 refill(s ) 12/15 completed Duration : 7; VACCINE_ IND: no; Not Available Not Available Not Available Latuda 60 mg tablet TAB 60MG; Quantity : 30; Duration : 30; 0 refill(s ) 03/04 completed Duration : 30; VACCINE_ IND: no; Not Available Not Available Not Available Nuvessa 1.3 % (65 mg/5 gram) vaginal gel INSERT 1 APPLICAT ORFUL BY VAGINAL ROUTE FOR 7 DAYS. 2022 active Not Available Not Available Not Avai lable Corlanor 5 mg tablet TAKE 1 TABLET BY MOUTH TWICE A DAY WITH FOOD active Not Available Not Available No t Available Fluvirin 2856-8324 45 mcg (15 mcg x 3)/0.5 mL intramusc ular suspensio n trivalen t Quantity : ; 0 refill(s ) 05/08 completed VACCINE_ IND: yes; VACCINE_ NAME: Influenz a, seasonal , injectab le; SU_FULL_ NAME: Belen leon; Not Available Not Available Not Available Vraylar 1.5 mg capsule 1.5 Quantity : 30; Duration : 30; 0 refill(s ) 12/01 completed Duration : 30; VACCINE_ IND: no; Not Available Not Available Not Available Vraylar 4.5 mg capsule 4.5 Quantity : 30; Duration : 30; 0 refill(s ) 06/29 completed Duration : 30; VACCINE_ IND: no; Not Available Not Available Not Available Vraylar 3 mg capsule 3 Quantity : 30; Duration : 30; 0 refill(s ) 04/01 completed Duration : 30; VACCINE_ IND: no; Not Available Not Available Not Available [facility] (15 mcg x 3)/0.5 mL intramusc ular suspensio n trivalen t Quantity : ; 0 refill(s ) 05/08 completed VACCINE_ IND: yes; VACCINE_ NAME: Influenz a, seasonal , injectab le; SU_FULL_ NAME: Belen leon; VIS_DATE : 19:25:47 .0; Not Available Not Available Not Available [facility] Quad 60 mcg (15 mcg x 4)/0.5 mL IM suspensio n quadriva lent Quantity : ; 0 refill(s ) 06/29 completed VACCINE_ IND: yes; VACCINE_ NAME: influenz a, injectab le, quadriva lent; SU_FULL_ NAME: Belen leon; VIS_DATE : 14:40:09 .0; Not Available Not Available Not Available Wixela Inhub 250 mcg-50 mcg/dose powder for inhalatio n TAKE 1 PUFF BY MOUTH TWICE A DAY active Not Available Not Available No t Available OneTouch Ultra2 Meter USE TO TEST BLOOD SUGAR TWICE A DAY active Not Available Not Available No t Available OneTouch Delica Plus Lancet 33 gauge USE TO TEST BLOOD SUGAR TWICE A DAY active Not Available Not Available No t Available [facility] Quad 60 mcg (15 mcg x 4)/0.5 mL intramusc ular susp. quadriva lent Quantity : ; 0 refill(s ) 06/29 completed VACCINE_ IND: yes; VACCINE_ NAME: influenz a, injectab le, quadriva lent; SU_FULL_ NAME: Belen leon; VIS_DATE : 17:41:59 .0; Not Available Not Available Not Available Afluria Quad 60 mcg (15 mcg x 4)/0.5 mL intramusc ular susp. quadriva lent Quantity : ; 0 refill(s ) 11/24 completed VACCINE_ IND: yes; VACCINE_ NAME: influenz a, injectab le, quadriva lent; SU_FULL_ NAME: Belen leon; VIS_DATE : 21:04:29 .0; Not Available Not Available Not Available Trelegy Ellipta 200 mcg-62.5 mcg-25 mcg powder for inhalatio n TAKE 1 PUFF BY MOUTH EVERY DAY active Not Available Not Available No t Available Afluria Quad 60 mcg (15 mcg x 4)/0.5 mL intramusc ular susp. quadriva lent Quantity : ; 0 refill(s ) 06/29 completed VACCINE_ IND: yes; VACCINE_ NAME: influenz a, injectab le, quadriva lent; SU_FULL_ NAME: Belen Galeasevelyn leon; VIS_DATE : 19:48:25 .0; Not Available Not Available Not Available Apretude 600 mg/3 mL (200 mg/mL) IM suspensio n, extended release MONTHS 1 &2: 1 INJECTIO N INTRAMUS CULARLY EVERY MONTH THEN FOR MONTHS 4+: 1 INJECTIO N 08/16 completed Duration : 30; VACCINE_ IND: no; SU_FULL_ NAME: Belen leon; Not Available Not Available Not Available Afluria Quad (6mo up) 60 mcg (15 mcg x 4)/0.5 mL IM susp quadriva lent Quantity : ; 0 refill(s ) 06/29 completed VACCINE_ IND: yes; VACCINE_ DOCUMENT _DATE: 00:00:00 ; VACCINE_ DOCUMENT _NAME: Influenz a (Flu) (Inactiv ated or Recombin ant): 09/25/20; VACCINE_ NAME: influenz a, injectab le, quadriva lent; SU_FULL_ NAME: Belen Robles marv VIS_DATE : 20:09:16 .0; Not Available Not Available Not Available Vitals Date Recorded Body height Body mass index (BMI) Body weight Oxygen saturation Oxygen saturation in Arterial blood by Pulse oximetry Heart rate Body temperature Systolic blood pressure Diastolic blood pressure Provider Name and Address Organization Details Last Updated DateTime 3 152.4 cm 22.8 kg/m2 80227.3 1 g 99 % 99 % 55 /min 98.7 [degF] 100 mm[Hg] 80 mm[Hg] Angel VREA MD [facility] 3 15:21:07 Date Recorded Body height Heart rate Respiratory rate Body temperature Body mass index (BMI) Body weight Systolic blood pressure Diastolic blood pressure Provider Name and Address Organization Details Last Updated DateTime 4 152.4 cm 60 /min 10 /min 98.4 [degF] 25.4 kg/m2 92029.0 1 g 100 mm[Hg] 80 mm[Hg] Lesly VERA MD [facility] 4 16:06:11 Date Recorded Body height Body temperature Provider N varun and Address Organization Details Last Updated DateTime 01/31/2023 152.4 cm 98 [degF] Stacy VERA MD [facility] 01/31/2023 16:17:53 Social History Question Answer Notes LastModified by Organizat ion Details LastModified Time Tobacco Smoking Status Never Smoker AQUILES Hui MD [facility] 11/25/2022 14:10:40 Are You Blind Or Do You Have Difficulty Seeing? No [email or web address] Information not available 11/25/2022 Are You Currently Employed? No [email or web address] Information not available 11/25/2022 Are You Deaf Or Do You Have Serious Difficulty Hearing? No Information not available 11/25/2022 Which Of Your Hands Is Dominant? Right [email or web address] Information not available 11/25/2022 What Is Your Relationship Status? Single [email or web address] Information not available 11/25/2022 Have You Recently Traveled Abroad? No [email or web address] Information not available 11/25/2022 Sex: Female Functional Status Question Answer Note LastModified by Organizat ion Details LastModified Time Do you have difficulty walking or climbing stairs? No [email or web address] Information not available 11/25/2022 Are you able to walk? YESWOREST [email or web address] Information not available 11/25/2022 Do you have difficulty doing errands alone? No [email or web address] Information not available 11/25/2022 Are you able to care for yourself? Yes [email or web address] Information not available 11/25/2022 Do you have difficulty dressing or bathing? No [email or web address] Information not available 11/25/2022 Mental Status Question Answer Note LastModified by Organization D etails LastModified Time Do you have difficulty concentrating, remembering or making decisions? No [email or web address] Information no t available 11/25/2022 Family History Nothing Reported Notes:lymphoma cancer aunt, diabetes,heart disease, hypertension No known Family history, Response Property: Yes; , Family history unknown, Response Property: Yes; Medical History Condition Response Anxiety Disorder Y Fibromyalgia Y Depression Y Asthma Y Gynecological HistoryNo gynecological history recorded. Obstetrics History GPAL:G 0 P 0 0 0 0 Past Encounters Encounter ID Performer Location Encounter Start Date Encounter Closed Date Diagnosis/Indication Diagnosis SNOMED-CT Code Diagnosis ICD10 Code Diagnosis Note [id number] Belen Vera MD Main Office [address] [place] [phone] 11/25/2022 13:56:27 11/30/2022 09:23:42 Exposure to Human immunodeficiency virus 349668209 Z20.6 PreP; STI labs. Awaitig allergy eval and management Plan is to start Apretude once she gets cleared by motion picture critic. Apretude is already in the office, and she will call once she is ready to start.HIV test would be repeated prior to starting med.if HIV negative, will start PreP with PO cabotegrav ir, and if tolerates PO cabotegrav ir for several weeks, then will switch to IM Apretude qm x2, then QOM.potent ial side effects reviewed such as allergic reaction, nausea, fatigue, insomnia, headaches, weight gain among other. injection site reactions reviewed. mechanism of action reviewed.c ondom use for STI prevention . Bacterial vaginosis 4197 47377 N76.0 BV: metronidaz ole cream daily for 7 days PRN BD affirm ordered Urinary tr act infectious disease 95218103 N39.0 Recurrent UTI. on Macrodanti n suppressio n tx qd. u/a and U/C ordered. will adjust tx if positive UTI. might have another organis, hydration. to hospital if acute or worsening sx while culture is being processed. Candidiasis of vagina 72 629988 B37.31 fluconazol e qw for suppressio n tx. to call if active infection as dose would change.BD affirm [id number] Belen Vera MD Main Office [address] [place] [phone] 11/29/2022 15:03:23 11/30/2022 09:29:43 Exposure to Human immunodeficiency virus 724668104 Z20.6 PreP; STI labs. Plan is to start Apretude once she gets cleared by motion picture critic. Apretude is already in the office, and she will call once she is ready to start.HIV test would be repeated prior to starting med.if HIV negative, will start PreP with PO cabotegrav ir, and if tolerates PO cabotegrav ir for several weeks, then will switch to IM Apretude qm x2, then QOM.potent ial side effects reviewed such as allergic reaction, nausea, fatigue, insomnia, headaches, weight gain among other. injection site reactions reviewed. mechanism of action reviewed.c ondom use for STI prevention . Bacterial vaginosis 4197 86829 N76.0 BV: metronidaz ole cream daily for 7 days Urinary tr act infectious disease 03045526 N39.0 Recurrent UTI Ecoli. on Macrodanti n suppressio n tx qd. MRSA UTI. Start Doxycyclin e 100mg po bid x 14 days. B/c. CBC,ALT, AST, creatinine . may need to adjust antibiotic based on workup and response hydration. to hospital if acute or worsening sx while culture is being processed. Candidiasis of vagina 72 084461 B37.31 fluconazol e qw for suppressio n tx. to call if active infection as dose would change.BD affirm Localized eruption of skin 282767081 R21 facial. swelling.w orse with steroid cream. hold steroidsba cterial/fu ngal skin swab obtained. .mupirocin qd [id number] Belen Vera MD Main Office [address] [place] [address] 12/06/2022 12:30:04 12/06/2022 13:20:12 Exposure to Human immunodeficiency virus 943900371 Z20.6 PreP; STI labs. Plan is to start Apretude once she gets cleared by motion picture critic. Apretude is already in the office, and she will call once she is ready to start.HIV test would be repeated prior to starting med.if HIV negative, will start PreP with PO cabotegrav ir, and if tolerates PO cabotegrav ir for several weeks, then will switch to IM Apretude qm x2, then QOM.potent ial side effects reviewed such as allergic reaction, nausea, fatigue, insomnia, headaches, weight gain among other. injection site reactions reviewed. mechanism of action reviewed.c ondom use for STI prevention . Bacterial vaginosis 4197 67373 N76.0 BV: flagyl 500mg po bid x 7 days.SHE WAS NOT ABLE TO GET CREAM, AND HAS ACTIVE INFECTION AND POSITIVE bd AFFirm Urinary tr act infectious disease 57507600 N39.0 Recurrent UTI Ecoli. on Macrodanti n suppressio n tx qd. MRSA UTI. To complete Doxycyclin e 100mg po bid x 14 days. B/C negative. will repeat U/a and U/c once completes antibiotic .if recurrent, could go on Bactrim DS for E coli and MRSA suppressio nhydration . to hospital if acute or worsening sx while culture is being processed. Candidiasis of vagina 72 720264 B37.31 fluconazol e qw for suppressio n tx. to call if active infection as dose would change.BD affirm Localized eruption of skin 169969830 R21 improved facial. swelling.h old steroidvir al swab obtainedmu pirocin qdf/u dermatolog y/allergis t Genital he rpes simplex 55326942 A60.9 [id number] Belen Vera MD Main Office [address] [place] [address] 12/22/2022 15:10:16 12/22/2022 16:59:50 Exposure to Human immunodeficiency virus 856257956 Z20.6 PreP; STI labs.Plan is to start Apretude once she gets cleared by motion picture critic. Apretude is already in the office, and she will call once she is ready to start.HIV test would be repeated prior to starting med.if HIV negative, will start PreP with PO cabotegrav ir, and if tolerates PO cabotegrav ir for several weeks, then will switch to IM Apretude qm x2, then QOM.potent ial side effects reviewed such as allergic reaction, nausea, fatigue, insomnia, headaches, weight gain among other. injection site reactions reviewed. mechanism of action reviewed.c ondom use for STI prevention . Bacterial vaginosis 4197 61187 N76.0 BV:resolve d. Urinary tr act infectious disease 65317515 N39.0 Recurrent hx UTI Ecoli. hold Macrodanti n suppressio n tx qd. might need to re-startMR SA UTI. To complete Doxycyclin e 100mg po bid x 14 days. B/C negative. will repeat U/a and U/c once completes antibiotic .if recurrent, could go on Bactrim DS for E coli and MRSA suppressio nhydration . to hospital if acute or worsening sx while culture is being processed. Genital he rpes simplex 05585600 A60.9 [id number] Belen Vera MD Main Office [address] [place] [phone] 01/31/2023 16:14:07 01/31/2023 17:19:06 Exposure to Human immunodeficiency virus 352862373 Z20.6 PreP; STI labs.Plan is to start Apretude within the next month once pt is ready.if HIV negative, will start PreP with PO cabotegrav ir, and if tolerates PO cabotegrav ir for several weeks, then will switch to IM Apretude qm x2, then QOM.potent ial side effects reviewed such as allergic reaction, nausea, fatigue, insomnia, headaches, weight gain among other. injection site reactions reviewed. mechanism of action reviewed.c ondom use for STI prevention . Urinary tr act infectious disease 63126173 N39.0 Recurrent hx UTI Ecoli. Macrodanti n suppressio n tx qd.MRSA UTI. s/p Doxycyclin e 100mg po bid x 14 days. B/C negative.h ydration. to hospital if acute or worsening sx while culture is being processed. 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 Macrodanti n suppressio n tx qd.u/a and u/c; pt will come in to office, especially if worsening of sx.hydrati on.to hospital if acute or worsening sx while culture is being processed. [id number] Belen Vera MD Main Office [address] [place] [address] 03/13/2023 13:57:37 03/17/2023 13:46:02 Exposure to Human immunodeficiency virus 028219235 Z20.6 PreP;.Plan is to start Apretude within the next month once pt is ready.Init stefan, she will start PreP with PO cabotegrav ir, and if tolerates PO cabotegrav ir for several weeks, then will switch to IM Apretude qm x2, then QOM.condom use for STI prevention . Urinary tr act infectious disease 59844709 N39.0 Recurrent hx UTI Ecoli. Macrodanti n suppressio n tx qd.u/a and u/cincreas e nitrofuran toin 100mg po bid. once culture results available, will adjust tx if and as neededhydr ation. call if worseningt o hospital if acute or worsening sx while culture is being processed. Bacterial vaginosis 4197 50635 N76.0 BD affirm Candidal vulvovaginitis 92553257 B37.31 BD Affirm. [place] fluconazol e. [id number] Belen Vera MD Main Office [address] [place] [address] 01/02/2024 15:50:41 01/02/2024 17:04:04 Urinary tract infectious disease 52700006 N39.0 Recurrent hx UTI Ecoli.past hx Macrodanti n suppressio n tx qd.suspect E coliawait results of u/a and u/c; u/a and UC and BD affirm collectedS TART Levaquin 500mg po qd; will adjust tx if and as needed based on resultsto ER if n/v/d , chills, sweatsor worsening sxhydratio n. call if worseningt o hospital if acute or worsening sx while culture is being processed. Health Concerns Section Related Observation LastModified by Organization Detai ls LastModified Time None Recorded Concern Status LastModified by Organization Details LastModified Time None Recorded Advance Directives Directive None Recorded Payers Encounter Date Sequence Insurance Name Policy Number Policy Castellano Covered Member ID Castellano Member ID Guarantor Name 12/22/2022 1 [facility] [employer] - DOS ON OR AFTER 2022 - SNF OPTIONS AND ONE CARE (MEDICARE REPLACEMENT/ADV ANTAGE - PPO) Guillermina Townsend [id number] Guillermina Townsend 01/31/2023 1 [facility] [employer] - DOS ON OR AFTER 2022 - SNF OPTIONS AND ONE CARE (MEDICARE REPLACEMENT/ADV ANTAGE - PPO) Guillermina Townsend [id number] Guillermina Townsend 02/27/2023 1 [employer] - DOS ON OR AFTER 2022 - SNF OPTIONS AND ONE CARE (MEDICARE REPLACEMENT/ADV ANTAGE - PPO) Guillermina Townsend [id number] Guillermina Townsend 03/13/2023 1 [facility] [employer] - DOS ON OR AFTER 2022 - SNF OPTIONS AND ONE CARE (MEDICARE REPLACEMENT/ADV ANTAGE - PPO) Guillermina Townsend [id number] Guillermina Townsend 01/02/2024 1 [facility] [employer] [employer] - DOS ON OR AFTER 2022 - SNF OPTIONS AND ONE CARE (MEDICARE REPLACEMENT/ADV ANTAGE - PPO) Guillermina Townsend [id number] Guillermina Townsend Notes Date Note Type Note Provider Name and Address Organization Details Recorded Time 12/22/2022 text/html PreP.Has not sta rted Cabotegravir PO nor Apretude.will call when ready to start Apretude.MRSA UTI. susceptible to Tetra, macrobid, Bactrim and other.completed 14 days of Doxycycline bid. resolved. however, sexually active and post menstrual perios, and notices sx are back.no dysuria. back discomfort, and strong odor.b/C negative.BV treated w Flagyl po bid x 7 days. BV resolved. no itchiness. no vaginal discharge.no angioedema.med list reviewed.no recent HSV. hx recurrent HSV.07/02/21 eGFR>60; AST/ALT wnl; CBC wnl;HIV neg; Syphilis ne; GC/Chlamydia neg Belen Vera MD [address] [place] [address], [phone], AQUILES VERA MD [facility] 12/22/2022 15:45:08 01/31/2023 text/html PreP.Plan is to start Cabotegravir/Apretude. will call when ready to start Apretude.uti resolved. no current sx. recent e coli tx macrobid. recent MRSA.BV treated w Flagyl po bid x 7 days. BV resolved. no itchiness. no vaginal discharge.she reports workup for angioedema ws negative, and also negative for allergies.med list reviewed.she has not been on Valtrex. hx of recurrent genital HSV; no recent genital flareups; she wonders if upper oral lip vesicles/rash could be HSV, or zoster. not painful, but recurrent at same site01/2023 oral lip bacterial swab neg.07/02/21 eGFR>60; AST/ALT wnl; CBC wnl;HIV neg; Syphilis ne; GC/Chlamydia neg Belen Vera MD [address] [place] [address], [phone], AQUILES VERA MD [facility] 02/01/2023 02:25:47 02/27/2023 text/html uti resolved. re cent e coli tx macrobid. not sure if ongoing infectionmacrobid qd suppression tx.no back pain. no fever.07/02/21 eGFR>60; AST/ALT wnl; CBC wnl;HIV neg; Syphilis ne; GC/Chlamydia neg11/2022 labs [place] HIV neg; HCV and HBV neg; eGFR>60; AST/ALt nl; RPR NR Belen Vera MD [address] [place] [address], [phone], AQUILES VERA MD [facility] 03/15/2023 00:20:43 03/13/2023 text/html PreP.will call isaac poon ready to start Apretude.uti sx. hx e coli; on macrobid suppression tx.dysuria. went to ER last week, but did not stayno back pain.no skin lesions.vaginal discharge, itchiness.no back pain. no fever.07/02/21 eGFR>60; AST/ALT wnl; CBC wnl;HIV neg; Syphilis ne; GC/Chlamydia neg11/2022 labs [place] HIV neg; HCV and HBV neg; eGFR>60; AST/ALt nl; RPR NR Belen Vera MD [address] [place] [address], [phone], AQUILES VERA MD [facility] 03/14/2023 23:50:30 01/02/2024 text/html uti sx. hx e col i;hs been on macrobid suppression tx in the past, but not recenthad been doing well for monthsdeveloped UTI s dysuria and back pain; also fever. about 3 -5 days ago; went to urgent care and got tested. and took antibiotic for tx; has ongoing sx, so worried by antibiotic not covering infectionno skin lesions.vaginal discharge, itchiness.lab results not available07/02/21 eGFR>60; AST/ALT wnl; CBC wnl;HIV neg; Syphilis ne; GC/Chlamydia neg11/2022 labs [place] HIV neg; HCV and HBV neg; eGFR>60; AST/ALt nl; RPR NR Belen Vera MD [address] [place] [address], [phone], AQUILES VERA MD [facility] 01/11/2024 13:03:43 OBGyn Episode No OBEpisode recorded.
--- OUTSIDE RECORDS SUMMARY | 2024-04-02 13:59 | XMS_ITS | Data Portability ---
Author Organization [employer] Address [address] [place] [phone] Care Team Providers Care Dietary Server Name Role Phone [facility] Referring Provider [facility] Referring Provider Assessment Encounter Date Assessment Date Assessment LastModified by Organization Details LastModified Time 06/15/2021 06/15/2021 I have reviewed and agree with the assessment and plan as documented by the motor grader operator. I provided real-time medical direction for this encounter and was immediately available to provide additional phone-based assistance as needed. Patient with 1 week of toe erythema and pain without obvious trauma though believes she may have been wearing tight shoes that prompted this. No spreading warmth or redness per medic. No fevers chills or myalgias. No hx of crystalline arthropathy in the past. Sxs have been stable for 1 week. Well appearing and AVSS per medic. Does not appear obviously cellulitic by images and by history / report of medic. Advised foot elevation and evaluation urgently by podiatry given hx of diabetes. Patient aware to call back or present to ED/UC if worsening/spre ading redness, pain, or systemic sxs (fevers / chills). pallfather Not available 06/15/2021 16:22:34 Plan of Treatment Reminders Order Date Submit Date Provider Last Modified By Organization Details Last Modified Time Details Appointments None recorded. Lab None recorded. Referral caustic room attendant referral 2021 022 apoorva Not available 09:24:52 Procedures None recorded. Surgeries None recorded. Imaging None recorded. Medication Orders None recorded. Patient TargetsNo targets recorded. Patient InstructionsNo instructions recorded. Reason for Referral [employer] Salesperson Referral for Pain of toe of left foot toe pain, erythema in diabetic patient Referring Physician: Giacomo Madrid, Urgent Care, null Encounter Date: 06/15/2021 Medical Equipment None Reported. Medications Name Sig Start Date Stop Date Status Note LastModified by Organization Details LastModified Time fluconazole 100 mg tablet TAKE 1 TABLET BY MOUTH EVERY DAY active Not Available Not Available No t Available tretinoin 0.01 % topical gel APPLY TO FACE DAILY AT BEDTIME active Not Available Not Available N ot Available albuterol sulfate 2.5 mg/3 mL (0.083 %) solution for nebulization INHALE 1 VIAL VIA NEBULIZER EVERY 6 HOURS active Not Available Not Available No t Available azithromycin 250 mg tablet TAKE 2 TABLETS BY MOUTH EVERY DAY FOR 3 DAYS active Not Available Not Available No t Available metronidazol e 0.75 % (37.5 mg/5 gram) vaginal gel USE 1 APPLICATION VAGINALLY DAILY X 7 DAYS active Not Available Not Available No t Available ondansetron HCl 4 mg tablet TAKE 1 TABLET BY MOUTH TWICE A DAY NEEDED FOR NAUSEA AND VOMITING active Not Available Not Available No t Available prednisone 20 mg tablet TAKE 1 TABLET BY MOUTH EVERY DAY FOR 5 DAYS active Not Available Not Available No t Available clonazepam 1 mg tablet TAKE 1 TABLET BY MOUTH EVERY DAY NEEDED active Not Available Not Available No t Available metronidazol e 500 mg tablet TAKE 1 TABLET BY MOUTH EVERY 12 HOURS FOR 7 DAYS active Not Available Not Available N ot Available acetaminophe n 300 mg-codeine 30 mg tablet TAKE 1 OR 2 TABLETS BY MOUTH EVERY 4 TO 6 HOURS NEEDED FOR PAIN active Not Available Not Available No t Available valacyclovir 500 mg tablet TAKE 1 TABLET BY MOUTH EVERY DAY active Not Available Not Available No t Available Miconazole-7 2 % vaginal cream PLACE 1 APPLICATION VAGINALLY EVERY DAY AT BEDTIME FOR 7 DAYS active Not Available Not Available N ot Available phenazopyrid ine 100 mg tablet TAKE 1 TABLET BY MOUTH EVERY 8 HOURS NEEDED FOR PAIN active Not Available Not Available No t Available cephalexin 500 mg capsule TAKE 1 TABLET BY MOUTH 4 TIMES A DAY FOR 7 DAYS active Not Available Not Available N ot Available divalproex ER 500 mg tablet,exten ded release 24 hr TAKE 1 TABLET BY MOUTH TWICE A DAY active Not Available Not Available No t Available mupirocin 2 % topical ointment APPLY TO AFFECTED AREA ONCE A DAY FOR 10 DAYS active Not Available Not Available No t Available metoprolol succinate ER 25 mg tablet,exten ded release 24 hr TAKE 1/2 TAB BY MOUTH EVERY DAY active Not Available Not Available No t Available ibuprofen 600 mg tablet TAKE 1 TABLET BY MOUTH EVERY 6 HOURS NEEDED FOR PAIN active Not Available Not Available No t Available levofloxacin 500 mg tablet TAKE 1 TABLET BY MOUTH EVERY DAY active Not Available Not Available No t Available zolpidem 10 mg tablet TAKE 1 TABLET BY MOUTH EVERY DAY AT BEDTIME NEEDED active Not Available Not Available No t Available albuterol sulfate HFA 90 mcg/actuatio n aerosol inhaler TAKE 2 PUFFS BY MOUTH EVERY 4 TO 6 HOURS NEEDED FOR WHEEZE FOR SHORTNESS OF BREATH active Not Available Not Available No t Available ondansetron 4 mg disintegrati ng tablet TAKE 1 TABLET BY MOUTH EVERY 8 HOURS NEEDED FOR NAUSEA AND VOMITING active Not Available Not Available No t Available amoxicillin 875 mg-potassium clavulanate 125 mg tablet TAKE 1 TABLET BY MOUTH TWICE A DAY active Not Available Not Available No t Available oxycodone 5 mg tablet TAKE 1 TABLET BY MOUTH EVERY 6 HOURS NEEDED FOR PAIN active Not Available Not Available No t Available nitrofuranto in monohydrate/ macrocrystal s 100 mg capsule TAKE 1 CAPSULE BY MOUTH EVERY DAY active Not Available Not Available No t Available levalbuterol concentrate 1.25 mg/0.5 mL solution for nebulization USE 1.25 MG (0.5 ML) INHALATION EVERY 4 HOURS WHILE AWAKE active Not Available Not Available No t Available emtricitabin e 200 mg-tenofovir disoproxil fumarate 300 mg tablet TAKE 1 TABLET BY MOUTH EVERY DAY active Not Available Not Available No t Available zolpidem ER 12.5 mg tablet,exten ded release,mult iphase TAKE 1 TABLET BY MOUTH EVERY DAY AT BEDTIME NEEDED active Not Available Not Available No t Available Latuda 40 mg tablet TAKE 1 TABLET BY MOUTH EVERY EVENING TAKE WITH FOOD. active Not Available Not Available No t Available Latuda 80 mg tablet TAKE 1 TABLET BY MOUTH EVERY EVENING TAKE WITH FOOD. active Not Available Not Available No t Available lidocaine 5 % topical ointment APPLY TO AFFECTED AREA TWICE A DAY NEEDED active Not Available Not Available No t Available cefixime 400 mg capsule TAKE 1 CAPSULE BY MOUTH EVERY DAY FOR 7 DAYS active Not Available Not Available No t Available Latuda 60 mg tablet TAKE 1 TABLET BY MOUTH EVERY EVENING TAKE WITH FOOD. active Not Available Not Available No t Available Vraylar 1.5 mg capsule TAKE 1 CAPSULE BY MOUTH EVERYDAY AT BEDTIME active Not Available Not Available No t Available Vraylar 3 mg capsule TAKE 1 CAPSULE BY MOUTH EVERYDAY AT BEDTIME active Not Available Not Available No t Available Vitals Date Recorded Respiratory rate Body temperature Heart rate Oxygen saturation Oxygen saturation in Arterial blood by Pulse oximetry Oxygen saturation Oxygen saturation in Arterial blood by Pulse oximetry Heart rate Body temperature Respiratory rate Systolic blood pressure Diastolic blood pressure Systolic blood pressure Diastolic blood pressure Provider Name and Address Organization Details Last Updated DateTime 2 20 /min 97.9 [degF] 75 /min 98 % 98 % 98 % 98 % 75 /min 97.9 [degF] 20 /min 135 mm[Hg] 85 mm[Hg] 135 mm[Hg] 85 mm[Hg] Not Available [employer] - production 2 15:57:57 Social History None recorded. Functional Status None recorded. Mental Status None recorded. Family History Nothing Reported. Medical History No medical history recorded. Gynecological HistoryNo gynecological history recorded. Obstetrics History GPAL:G 0 P 0 0 0 0 Past Encounters Encounter ID Performer Location Encounter Start Date Encounter Closed Date Diagnosis/Indication Diagnosis SNOMED-CT Code Diagnosis ICD10 Code Diagnosis Note [id number] Giacomo Madrid MD Main - [address] [phone] 06/15/2021 15:47:01 10/22/2021 15:00:32 Pain of toe of left foot [id number] M79.675 Health Concerns Section Related Observation LastModified by Organization Detai ls LastModified Time None Recorded Concern Status LastModified by Organization Details LastModified Time None Recorded Advance Directives Directive None Recorded Payers Encounter Date Sequence Insurance Name Policy Number Policy Castellano Covered Member ID Castellano Member ID Guarantor Name 06/15/2021 1 [facility] - DOS PRIOR TO 2022 - DUAL ELIGIBLE (MEDICARE REPLACEMENT/ADV ANTAGE - HMO) Guillermina Townsend [id number] Guillermina Townsend Notes Date Note Type Note Provider Name and Address Organization Details Recorded Time 06/15/2021 text/html HPI: Allergies: Amitriptyline, Magnesium. Naproxen and Sumatriptan. Patient reports having removed a piece of hand nail from L great big toe. Now having pain and redness of area. No pus, fever. Patient reports pain with weight bearing, walking with a limp. Patient unable to come into office. (Of note, per medic, pt denies having removed part of the nail............... ................... ................... ................... ................... ................... ................... ............. Car Sales Consultant Note: Patient is a 35 year old female with pain in her left big toe. Patient alert, oriented and ambulatory. Patient in no acute distress, airway patent, breathing normally, skin WPD. Patient states that her symptoms began a week ago unprompted. The patient all of a sudden noticed her toe hurt, no trauma no obvious injury. Patient believes it could have to do with her choice of foot wear. Patient is concerned as she is diabetic and does not want an infection or worse. Toe is red, painful to touch. No swelling, no broken skin, no leakage. Patient has been taking Tylenol for pain with mild effect. Patient has appointment with her pediatrist in June. No further complaints. Photos uploaded to [employer] nadine for viewing. Vital signs obtained and all within normal limits, Red flags discussed. Consulted with Dr. Madrid. Patient is to follow up with PCP/care team regarding her signs, symptoms and todays visit. Patient to elevate left foot when resting and sleeping. Avoid uncomfortable shoes for a couple of weeks. Monitor health and toe for any changes. Contact [employer] for re-visit if symptoms persist. Contact 911 for any discussed red flags or other emergencies. ................... ................... ................... ................... ................... ................... ................... ........ Disposition: Fulfilled Giacomo Madrid MD [address] [place] [address],[address], [place], [address], [employer] - [employer] 06/15/2021 16:24:13 OBGyn Episode No OBEpisode recorded.
[2024-04-02 14:04] LABS: Magnesium 1.9 mg/dL (1.6-2.6)
[2024-04-02] MEDS: methylPREDNISolone Sod Succ 125 MG/2 ML VIAL IVPUSH (14:08)
[2024-04-02] MEDS: Acetaminophen 325 MG TABLET 975 MG PO (14:08)
[2024-04-02] MEDS: 0.9 % Sodium Chloride 1,000 ML 999 ML IV ×2 (14:08)
[2024-04-02] MEDS: Oseltamivir Phosphate 75 MG CAPSULE PO (14:09)
[2024-04-02] MEDS: LORazepam 2 MG/ML VIAL 0.5 MG IVPUSH (14:09)
[2024-04-02] MEDS: Ketorolac Tromethamine 15 MG/ML VIAL IVPUSH (14:09)
[2024-04-02 16:34] LABS: Hemoglobin 12.2 g/dl (12.0-16.0); Mean Corpuscular HGB Conc 33.9 g/dl (31.0-35.0); Mean Corpuscular Hemoglobin 28.9 pg (27.0-33.0); Mean Corpuscular Volume 85.3 fL (80.0-98.0); Mean Platelet Volume 10.2 fL (9.4-12.3); Platelet Count 271 X10*3/uL (160-400); Red Blood Count 4.22 X10*6/uL (4.20-5.50); Red Cell Distribution Width 12.7 % (11.0-16.0)
[2024-04-02 16:40] LABS: Anion Gap 13 (12-20); Blood Urea Nitrogen 6 mg/dL (9-16); Calcium 7.8 mg/dL (8.4-10.2); Carbon Dioxide 17 mmol/L (22-29); Chloride 111 mmol/L (96-108); Creatinine Clr Calc Pharmacy 84.3; Estimated Glomerular Filt Rate > 60; Glucose Random 118 mg/dL (60-115); Potassium 3.3 mmol/L (3.3-5.1); Sodium 138 mmol/L (135-145)
[2024-04-02] MEDS: iohexoL 350 MG/ML 100 ML INFUS..BTL IV (17:45)
[2024-04-02 18:02] LABS: SLIDE REVIEW MANUAL DIFF
[2024-04-02 18:12] LABS: Neutrophils Percent Manual 80 % (45-73)
[2024-04-02 18:14] LABS: Band Neutrophils Percent 17 % (3-5); Lymphocytes Absolute Manual 0.1 X10*3/uL (1.2-4.9); Lymphocytes Percent Manual 1 % (20-40); Metamyelocytes Absolute 0.1 X10*3/uL; Metamyelocytes Percent 1 %; Monocytes Absolute Manual 0.1 X10*3/uL (0.1-1.2); Monocytes Percent Manual 1 % (2-11); Neutrophils Absolute Manual 8.7 X10*3/uL (2.0-8.3)
[2024-04-02 18:15] LABS: Platelet Estimate NORMAL (NORMAL); Platelet Morphology Comment NORMAL; RBC Morphology NORMAL
== END 2024-04-02 19:14 | disposition home or self-care (01) ==
PROVIDERS: Emergency Provider Emergency Medicine; PCP Student in an Organized Health Care Education/Training Program
DX: J10.1 Influenza due to other identified influenza virus with other respiratory manifestations (principal); J45.909 Unspecified asthma, uncomplicated; R06.02 Shortness of breath; R00.0 Tachycardia, unspecified; R11.2 Nausea with vomiting, unspecified; Z03.818 Encounter for observation for suspected exposure to other biological agents ruled out; Z79.899 Other long term (current) drug therapy
CPT/HCPCS: 0241U; 36415; 71046; 71275; 80048; 80053; 83735; 85007; 85025; 85027; 93005; 94640; 96361; 96374; 96375; 99285; J1885; J2060; J2919; Q9967

== ENCOUNTER → 2024-04-02 10:06 | Outpatient (BNV) | payer OTHER, SELFPAY | PROVIDERS: PCP Student in an Organized Health Care Education/Training Program; Visit Provider Internal Medicine Cardiovascular Disease | DX: I44.4 Left anterior fascicular block (principal); R00.0 Tachycardia, unspecified | CPT/HCPCS: 93010 ==

== ENCOUNTER → 2024-04-02 10:50 | Outpatient (BNV) | payer OTHER, SELFPAY | PROVIDERS: PCP Student in an Organized Health Care Education/Training Program; Visit Provider Radiology Diagnostic Radiology | DX: R05.9 Cough, unspecified (principal); R06.00 Dyspnea, unspecified | CPT/HCPCS: 71046; 71275 ==

== ENCOUNTER 2024-04-09 14:41 | Emergency (ER) | payer OTHER, SELFPAY ==
--- NOTE | ~2024-04-09 | XR_ITS ---
CLINICAL HISTORY: SOB, cough 2 view chest x-ray Comparison: CR/SR - XR CHEST 2V - 04/02/24 11:04 EST Findings: The lungs are clear. Normal size heart. No acute fracture. IMPRESSION: 1. No acute findings. This document has been electronically signed by: Stacy Lynch MD on 04/09/2024 18:42:15
[2024-04-09 15:32] VITALS: BP 149/94; PULSE 101; RESP 20; TEMP 36.6; O2SAT 99; BMI 23.8
--- NOTE | 2024-04-09 15:32 | ED_ITS ---
HPI - General Adult General Chief complaint: Upper Respiratory Symptoms Stated complaint: Shortness Of Breath, Weakness Related Data Home Medications ?Medication ?Instructions ?Recorded ?Confirmed clonazepam 1 mg tablet 1 mg PO BID PRN Anxiety 12/13/19 05/29/23 divalproex 500 mg tablet,extended 500 mg PO BID 07/10/20 05/29/23 release 24 hr (Depakote ER) zolpidem 10 mg tablet 1 tab PO BEDTIME PRN Sleep 05/24/21 05/29/23 ascorbic acid (vitamin C) 500 mg 500 mg PO DAILY 03/05/22 05/29/23 tablet (Vitamin C) multivitamin 1 tab PO DAILY 03/05/22 05/29/23 Previous Rx's ?Medication ?Instructions ?Recorded levalbuterol HCl 1.25 mg/3 mL 1.25 mg (3 mL) inhalation Q4H PRN 08/11/22 solution for nebulization for wheezing #540 mL cetirizine 10 mg capsule (Zyrtec) 10 mg PO DAILY PRN allergy 08/23/22 symptoms #14 caps diphenhydramine HCl 25 mg capsule 25 mg PO TID PRN allergy symptoms 08/23/22 (Benadryl) #14 caps levalbuterol tartrate 45 2 puff PO Q4-6H PRN for wheezing 12/27/22 mcg/actuation aerosol inhaler #15 ea fluticasone 250 mcg-salmeterol 50 1 ea PO BID #60 ea 01/10/23 mcg/dose blistr powdr for inhalation (Wixela Inhub) ivabradine 5 mg tablet (Corlanor) 5 mg PO BID #60 tabs 06/08/23 metoprolol succinate 25 mg 25 mg PO DAILY #90 tabs 06/16/23 tablet,extended release 24 hr cyclobenzaprine 5 mg tablet 5 mg PO TID PRN body pain 7 days 09/23/23 #21 tabs omeprazole 40 mg capsule,delayed 40 mg PO DAILY #90 caps 12/19/23 release cefuroxime axetil 250 mg tablet 250 mg PO BID #10 tabs 12/23/23 oseltamivir 75 mg capsule (Tamiflu) 75 mg PO BID 5 days #10 caps 04/02/24 prednisone 50 mg tablet 50 mg PO DAILY 5 days #5 tabs 04/02/24 Allergies Allergy/AdvReac Type Severity Reaction Status Date / Time fluconazole [From Diflucan] Allergy Severe Hives Verified 04/09/24 15:35 magnesium Allergy Unknown Chest Pain Verified 04/09/24 15:35 somatropin [SOMATROPIN] Allergy Unknown UNKNOWN Verified 04/09/24 15:35 amitriptyline [AMITRIPTYLINE] AdvReac Intermediate NAUSEA, Verified 04/09/24 15:35 DIZZINESS albuterol [ALBUTEROL] AdvReac Mild TACHYCARDIA Verified 04/09/24 15:35 esomeprazole [From NEXIUM] AdvReac Mild TACHYCARDIA Verified 04/09/24 15:35 [facility] Past Medical History Medical History Acute hypoxemic respiratory failure Asthma with COPD with exacerbation COVID-19 virus infection Inappropriate sinus tachycardia Asthma-COPD overlap syndrome Kidney stones UTI (urinary tract infection) Subclinical hyperthyroidism Inappropriate sinus node tachycardia POTS (postural orthostatic tachycardia syndrome) Asthma with COPD with exacerbation SVT (supraventricular tachycardia) Family history of COPD (chronic obstructive pulmonary disease) Schizoaffective disorder COPD exacerbation Polycystic ovarian disease Diabetes mellitus Fibromyalgia COPD (chronic obstructive pulmonary disease) Carpal tunnel syndrome History of MRSA infection Bipolar 1 disorder Postural orthostatic tachycardia syndrome Surgical History History of renal stent Hx of lithotripsy Tubal ligation status History of tubal ligation Hx of abdominoplasty Family History Family History Other COPD (chronic obstructive pulmonary disease) Social History Social History (Updated 11/20/23 @ 15:36 by UTE Pratt) Household Members: Children Housing: Apartment Do you presently have visiting nurse or other home services: No Alcohol intake: current Alcohol intake frequency: holidays/special occasions only Comment: sleeping Patient Tobacco Use Status: Never used Tobacco Second Hand Smoke Exposure: No Advance Directives: No Advance Directives Information Provided: No Do you have a plan to hurt others: No Plan service: No Current occupational status: employed Current occupation: [employer] in [employer] / right hand dominant Physical Exam ED Vital Signs: Vital Signs - 24 hr 04/09/24 15:32 Temperature 97.8 F Pulse Rate 101 H Respiratory Rate 20 Blood Pressure 149/94 H Pulse Oximetry 99 Oxygen Delivery Method Room Air BMI result Body Mass Index 23.8 Course Course Course Narrative: This is an RME: Additional HPI, ROS, PE not included below will be deferred to primary provider. RME assessment and note performed by: Federica Tate PA-C 38-year-old woman with a past medical history of COPD-asthma overlap, SVT, and diet-controlled diabetes, pots syndrome, migraines and subclinical hypothyroidism presents emergency department with complaints of nausea, vomiting, weakness.dx with flu on monday, has been taking tamiflu. Plan: Labs, UA, further ER eval needed Reevaluation(s) Reevaluation #1: Patient left without completing treatment. Medications Administered Discontinued Medications Generic Name Dose Route Start Last Admin Trade Name Freq PRN Reason Stop Dose Admin Ondansetron HCl 4 mg 04/09/24 15:34 04/09/24 15:40 Ondansetron Odt 4 Mg Tab.Rapdis TRANSLINGU 04/09/24 15:35 4 mg ONCE ONE Administration Medical Decision Making Lab Data 04/09/24 16:29 04/09/24 16:29 Labs: Lab Results 04/09/24 Range/Units 16:29 WBC 7.3 (4.8-10.8) X10*3/uL RBC 5.27 D (4.20-5.50) X10*6/uL Hgb 15.0 D (12.0-16.0) g/dl Hct 44.5 D (37.0-47.0) % MCV 84.4 (80.0-98.0) fL MCH 28.5 (27.0-33.0) pg MCHC 33.7 (31.0-35.0) g/dl RDW 13.0 (11.0-16.0) % Plt Count 362 D (160-400) X10*3/uL MPV 9.7 (9.4-12.3) fL Immature Gran % (Auto) 0.7 H (0.0-0.4) % Neut % (Auto) 54.9 (45-73) % Lymph % (Auto) 33.6 (20-40) % Union % (Auto) 10.6 (2-11) % Eos % (Auto) 0.1 (0-4) % Baso % (Auto) 0.1 (0-2) % Lymph # (Auto) 2.4 (1.2-4.9) X10*3/uL Union # (Auto) 0.8 (0.1-1.2) X10*3/uL Eos # (Auto) 0.0 (0.0-0.4) X10*3/uL Baso # (Auto) 0.0 (0.0-0.2) X10*3/uL Abs Immat Gran (auto) 0.05 H (0.00-0.03) X10*3/uL Absolute Neuts (auto) 4.0 (2.0-8.3) x10*3/uL Absolute Nucleated RBC 0.000 (0.0-0.012) X10*3/uL Nucleated RBC % (auto) 0.0 (0.0-0.2) /100WBC Sodium 140 (135-145) mmol/L Potassium 3.5 (3.3-5.1) mmol/L Chloride 103 (96-108) mmol/L Carbon Dioxide 29 (22-29) mmol/L Anion Gap 12 (12-20) BUN 8 L (9-16) mg/dL Creatinine 0.67 (0.5-1.4) mg/dL Estim Creat Clear Calc 90.5 Estimated GFR > 60 Random Glucose 84 (60-115) mg/dL Calcium 8.9 D (8.4-10.2) mg/dL Magnesium 2.2 (1.6-2.6) mg/dL Total Bilirubin 0.5 (0.0-1.0) mg/dL Direct Bilirubin 0.1 (0.0-0.5) mg/dL AST 23 (5-31) U/L ALT 23 (0-31) U/L Alkaline Phosphatase 56 (39-117) U/L Troponin I High Sens < 2.7 (<3.5-17.0) ng/L Total Protein 7.7 (6.5-8.0) g/dL Albumin 4.2 (3.5-5.0) g/dL Lipase 23 (8-78) U/L Beta HCG, Quant < 2 mIU/mL Influenza Type A (PCR) POSITIVE A (Negative) Influenza Type B (PCR) NEGATIVE (Negative) RSV RNA Qual (PCR) NEGATIVE (Negative) SARS-CoV-2 RNA (RT-PCR) NEGATIVE (Negative) Discharge Plan Discharge Clinical Impression: Nausea & vomiting Patient Disposition: Left W/O Completing Treatment Prescriptions: No Action levalbuterol HCl 1.25 mg/3 mL solution for nebulization 1.25 mg inhalation Q4H PRN (Reason: for wheezing) Qty: 540 0RF levalbuterol tartrate 45 mcg/actuation HFA aerosol inhaler 2 puff PO Q4-6H PRN (Reason: for wheezing) Qty: 15 0RF fluticasone propion-salmeterol [Wixela Inhub] 250-50 mcg/dose blister with device 1 ea PO BID Qty: 60 3RF Corlanor 5 mg tablet 5 mg PO BID Qty: 60 11RF Rx Instructions: must administer with a meal/food metoprolol succinate 25 mg tablet extended release 24 hr 25 mg PO DAILY Qty: 90 3RF clonazepam 1 mg tablet 1 mg PO BID PRN (Reason: Anxiety) divalproex [Depakote ER] 500 mg tablet extended release 24 hr 500 mg PO BID multivitamin Tablet 1 tab PO DAILY ascorbic acid (vitamin C) [Vitamin C] 500 mg Tablet 500 mg PO DAILY zolpidem 10 mg tablet 1 tab PO BEDTIME PRN (Reason: Sleep) cyclobenzaprine 5 mg tablet 5 mg PO TID PRN (Reason: body pain) 7 Days Qty: 21 0RF omeprazole 40 mg capsule,delayed release(DR/EC) 40 mg PO DAILY Qty: 90 0RF cefuroxime axetil 250 mg tablet 250 mg PO BID Qty: 10 0RF Zyrtec 10 mg capsule 10 mg PO DAILY PRN (Reason: allergy symptoms) Qty: 14 0RF diphenhydramine HCl [Benadryl] 25 mg capsule 25 mg PO TID PRN (Reason: allergy symptoms) Qty: 14 0RF prednisone 50 mg tablet 50 mg PO DAILY 5 Days Qty: 5 0RF oseltamivir [Tamiflu] 75 mg capsule 75 mg PO BID 5 Days Qty: 10 0RF Discharge Date/Time: 04/09/24 22:28
[2024-04-09] MEDS: Ondansetron ODT 4 MG TAB.RAPDIS TRANSLINGU (15:40)
[2024-04-09 16:35] LABS: MANUAL DIFF FLAG NO
[2024-04-09 16:36] LABS: Basophils Percent Auto 0.1 % (0-2); Eosinophils Percent Auto 0.1 % (0-4); Hematocrit 44.5 % (37.0-47.0); Imm Gran Abs Auto 0.05 X10*3/uL (0.00-0.03); Imm Gran Pct Auto 0.7 % (0.0-0.4); Lymphocytes Absolute Auto 2.4 X10*3/uL (1.2-4.9); Lymphocytes Percent Auto 33.6 % (20-40); Mean Corpuscular HGB Conc 33.7 g/dl (31.0-35.0); Mean Corpuscular Hemoglobin 28.5 pg (27.0-33.0); Mean Corpuscular Volume 84.4 fL (80.0-98.0); Mean Platelet Volume 9.7 fL (9.4-12.3); Monocytes Absolute Auto 0.8 X10*3/uL (0.1-1.2); Monocytes Percent Auto 10.6 % (2-11); Neutrophils Percent Auto 54.9 % (45-73); Platelet Count 362 X10*3/uL (160-400); Red Blood Count 5.27 X10*6/uL (4.20-5.50); White Blood Count 7.3 X10*3/uL (4.8-10.8)
[2024-04-09 16:59] LABS: Alanine Aminotransferase 23 U/L (0-31); Albumin Level 4.2 g/dL (3.5-5.0); Alkaline Phosphatase 56 U/L (39-117); Anion Gap 12 (12-20); Aspartate Amino Transferase 23 U/L (5-31); Bilirubin Direct 0.1 mg/dL (0.0-0.5); Bilirubin Total 0.5 mg/dL (0.0-1.0); Blood Urea Nitrogen 8 mg/dL (9-16); Calcium 8.9 mg/dL (8.4-10.2); Carbon Dioxide 29 mmol/L (22-29); Chloride 103 mmol/L (96-108); Creatinine Clr Calc Pharmacy 90.5; Estimated Glomerular Filt Rate > 60; Glucose Random 84 mg/dL (60-115); Lipase 23 U/L (8-78); Magnesium 2.2 mg/dL (1.6-2.6); Potassium 3.5 mmol/L (3.3-5.1); Sodium 140 mmol/L (135-145); Total Protein 7.7 g/dL (6.5-8.0)
[2024-04-09 17:01] LABS: HCG Quantitative < 2 mIU/mL; Troponin-I High Sensitivity < 2.7 ng/L (<3.5-17.0)
[2024-04-09 17:13] LABS: Influenza A PCR POSITIVE (Negative); Influenza B PCR NEGATIVE (Negative); Resp Syncy Virus RNA Qual PCR NEGATIVE (Negative); SARS COV2 PCR INHOUSE NEGATIVE (Negative)
--- OUTSIDE RECORDS SUMMARY | 2024-04-09 22:10 | XMS_ITS | Clinical Summary ---
Author Organization [facility] Address [address] [place] [address] Care Team Providers Care Spooler Rubber Strand Name Role Phone Jayda Hanson Primary Care Provider [phone] Medications ibuprofen (MOTRIN) 600 mg tablet Take [...] Pediat marcos (0-5 Years) and At-Risk Patients (6-50 Years) (2 of 2 - PCV) 12/18/2014 [...] (1 - 1-dose 75+ series) 09/19/2062 Insurance [facility] [place] [id number] Care Teams Spooler Rubber Strand Relationship Specialty Start Date End Date Jayda Hanson [address] [place] [address] PCP - General 09/08/16
--- OUTSIDE RECORDS SUMMARY | 2024-04-09 22:10 | XMS_ITS | Encounter Summary ---
Author Organization [employer] Address [address] [facility] [address] [place] [address] Care Team Providers Care Cafeteria Supervisor Name Role Phone Kelly Hanley MD Primary Care Pro vider Reason for Visit * Reason Onset Date Comments ER Follow-up 08/24/2022 Encounter Details Date Type Department Care Team ([facility] st Contact Info) Description 08/24/2022 Telephone [facility] [address] [place] [address] Kelly Hanley MD [address] [place] [address] ER Follow-up Social History Tobacco Use Types [...] Triage call Pt has been seen in [facility] ED 08/23 for facial swelling and widespread rash. 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 Pt is unaware of [...] to report ED visit on 08/23/22 at [facility]. Diagnosed with Allergic reaction, States has face swelling and rash widespread, pt stated they are still itchy and burning on skin. Patient advised will forward to team nurse for follow up. Please contact at [phone] Bel[place]an documented in this encounter Plan of Treatment Upcoming Encounters Date Type Department Care Team ([facility] st Contact Info) Description 06/04/2024 1:30 PM EDT Office Visit [facility] [address] [place] [address] [phone] Kelly Hanley MD [address] [place] [phone] documented as of this encounter Visit Diagnoses Not on filedocumented in this encounter Care Teams Cafeteria Supervisor Relationship Specialty Start Date End Date Kelly Hanley MD [address] [place] [phone] PCP - General Internal Medicine 07/22/22 documented as of this encounter
--- OUTSIDE RECORDS SUMMARY | 2024-04-09 22:10 | XMS_ITS | Encounter Summary ---
Author Organization [facility] Address [address] [place] [address] Care Team Providers Care Telecom Engineer Name Role Phone Unavailable Primary Care Provider Unavailabl e Encounter Details Date Type Department Care Team (Late st Contact Info) Description 01/02/[address] [facility] Lab [address] [facility] [place] [address] Belen Menendez MD [address] [place], [place] [phone] Urinary tract infection, site not specified Social [...] Trichomonas vaginalis Negative Negative 01/04/2024 11:12 AM [facility] Gardnerella vaginalis Positive(A) Negative 01/04/2024 11:12 AM [facility] Analia Species Negative Negative 11:12 AM [facility] Swab Vaginal structure / Unknown 01/02/2024 01/03/2024 1:09 PM EST us Belen Menendez MD LAB MICROBIOLOGY - GENERA L ORDERABLES Final Result [facility] [address] [place] [address], [place] [phone] * (ABNORMAL) Urinalysis microscopic only (01/02/2024 12:00 AM EST) RBC, Urine 4.2(H) 0 - 4 /HPF LAB URINALYSIS - AUTOMATED METHOD 01/02/2024 7:32 PM [facility] WBC, Urine 1.5 0 - 4 /HPF LAB URINALYSIS - AUTOMATED METHOD 01/02/2024 7:32 PM [facility] Squamous Epithelial, Urine 71(H) 0 - 60 /LPF LAB URINALYSIS - AUTOMATED METHOD 01/02/2024 7:32 PM [facility] Bacteria, Urine Negative Negative /HPF LAB URINALYSIS - AUTOMATED METHOD 01/02/2024 7:32 PM [facility] Hyaline Casts, Urine 2.4 0 - 3 /LPF LAB URINALYSIS - AUTOMATED METHOD 01/02/2024 7:32 PM [facility] Urine Urine specimen obtained by clean catch procedure / Unknown 01/02/2024 01/02/2024 6:42 PM EST us Belen Menendez MD LAB URINE ORDERABLES Kate l Result [facility] [address] [place] [address], [place] [phone] * Culture urine (01/02/2024 12:00 AM EST) Culture, Urine No growth 01/04/2024 11:54 AM EST [facility] Urine Urine specimen obtained by clean catch procedure / Unknown 01/02/2024 01/02/2024 6:42 PM EST us Belen Menendez MD LAB MICROBIOLOGY - GENERA L ORDERABLES Final Result [facility] [address] [place] [address], [place] [phone] documented in this encounter Visit Diagnoses Diagnosis Urinary tract infection, site not specified documented in this encounter
--- OUTSIDE RECORDS SUMMARY | 2024-04-09 22:10 | XMS_ITS | Referral Summary ---
Author Organization [facility] Address [address] [place] [address] Care Team Providers Care Ferryboat Deckhand Name Role Phone Jayda Hanson Primary Care Provider [phone] Medications ibuprofen (MOTRIN) 600 mg tablet Take [...] Plan of Treatment Not on file Insurance [facility] Care Teams Ferryboat Deckhand Relationship Specialty Start Date End Date Jayda Hanson [address] [place] [address] PCP - General 09/08/16
--- OUTSIDE RECORDS SUMMARY | 2024-04-09 22:10 | XMS_ITS | Data Portability ---
Author Organization [facility] Address [address] [place] [phone] Care Team Providers Care Patient Safety Tech Name Role Phone [facility] Referring Provider [facility] Referring Provider Assessment Encounter Date Assessment Date Assessment LastModified by Organization Details LastModified Time 06/15/2021 06/15/2021 I have reviewed and agree with the assessment and plan as documented by the spike machine feeder. I provided real-time medical direction for this [...] Appointments None recorded. Lab None recorded. Referral decorating consultant referral 2021 022 [email or web address] Not available 09:24:52 Procedures None recorded. Surgeries None recorded. Imaging None recorded. Medication Orders None recorded. Patient TargetsNo targets recorded. Patient InstructionsNo instructions recorded. Reason for Referral H[employer] Specialty [employer] Referral for Pain of toe of left [...] Note 1189 Giacomo Madrid MD Main - [address] [phone] 06/15/2021 15:47:01 10/22/2021 15:00:32 Pain of toe of left foot [id number] M79.675 Health Concerns Section Related Observation LastModified by Organization Detai ls LastModified Time None Recorded Concern Status LastModified by Organization Details LastModified Time None Recorded Advance Directives Directive None Recorded Payers Encounter Date Sequence Insurance Name Policy Number Policy Castellano Covered Member ID Castellano Member ID Guarantor Name 06/15/2021 1 [facility] - DOS PRIOR TO 2022 - DUAL ELIGIBLE (MEDICARE REPLACEMENT/ADV ANTAGE - HMO) Guillermina Townsend [id number] Guillermina Townsend Notes Date Note Type Note [...] ................... ................... ................... ................... ................... ................... ............. Helpdesk Technician Note: Patient is a 35 year old [...] June. No further complaints. Photos uploaded to [facility] nadine for viewing. Vital signs obtained and all within normal limits, Red flags discussed. Consulted with Dr. Madrid. Patient is to follow up with PCP/care team regarding her signs, symptoms and todays visit. Patient to elevate left foot when resting and sleeping. Avoid uncomfortable shoes for a couple of weeks. Monitor health and toe for any changes. Contact [facility] for re-visit if symptoms persist. Contact 911 for any discussed red flags or other emergencies. ................... ................... ................... ................... ................... ................... ................... ........ Disposition: Fulfilled Giacomo Madrid MD [address] [place] [address],[address], [place], [address], [employer] 06/15/2021 16:24:13 OBGyn Episode No OBEpisode recorded.
--- OUTSIDE RECORDS SUMMARY | 2024-04-09 22:10 | XMS_ITS | Encounter Summary ---
Author Organization [facility] Address [address] [place] [address] [address] [place] [address] Care Team Providers Care Web Services Professional Name Role Phone Ginger Lugo Primary Care Provider [phone] Kelly Hanley MD Primary Care Pro vider Encounter Details Date Type Department Care Team (Latest Contact Info) Description 12/31/2020 Abstract [facility] CONVERSIONS Dental, Provider, DDS Social History Tobacco [...] Description 06/04/2024 1:30 PM EDT Office Visit [facility] [address] [place], [place] [phone] Kelly Hanley MD [address] [place] [address] documented as of this encounter Visit Diagnoses Not on filedocumented in this encounter Care Teams Web Services Professional Relationship Specialty Start Date End Date Ginger Lugo FNP [address] [place] [address] PCP - General Family Medicine 10/17/21 07/21/22 Kelly Hanley MD [address] [place] [phone] PCP - General Internal Medicine 07/22/22 documented as of this encounter
--- OUTSIDE RECORDS SUMMARY | 2024-04-09 22:10 | XMS_ITS | Encounter Summary ---
Author Organization [facility] Address [address] [place] [address] [address] [place] [address] Care Team Providers Care Fuel Tank Sealer And Tester Name Role Phone Ginger Lugo Primary Care Provider [phone] Kelly Hanley MD Primary Care Pro vider Encounter Details Date Type Department Care Team (Latest Contact Info) Description 02/14/2019 Abstract [facility] CONVERSIONS Dental, Provider, DDS Social History [...] Description 06/04/2024 1:30 PM EDT Office Visit [facility] [address] [place], [place] [phone] Kelly Hanley MD [address] [place] [address] documented as of this encounter Visit Diagnoses Not on filedocumented in this encounter Care Teams Fuel Tank Sealer And Tester Relationship Specialty Start Date End Date Ginger Lugo FNP [address] [place] [address] PCP - General Family Medicine 10/17/21 07/21/22 Kelly Hanley MD [address] [place] [address] PCP - General Internal Medicine 07/22/22 documented as of this encounter
--- OUTSIDE RECORDS SUMMARY | 2024-04-09 22:10 | XMS_ITS | Data Portability ---
Author Organization AQUILES RAINES MD [facility], Main Office Address [address] [place] [id number] Assessment Encounter Date Assessment Date Assessment LastModified by Organization Details LastModified Time 02/27/2023 02/27/2023 telemedicine. phone. audio. pt home in [place]. 16 min [email or web address] Not available 03/15/2023 00:19:57 Plan of Treatment Reminders Order Date Submit Date Provider Last Modified By Organization Details Last Modified Time Details Appointments None recorded. Lab varicella -zoster igg Ab screen, serum [email or web address] (Lab), [address] [place] [address], [address], 3 15:55:50 urinalysi s, complete 2022 023 [facility] (Lab), [address] [place] [address], [address], 3 19:07:25 culture, urine 2022 023 [email or web address] Not available 3 13:31:37 bacterial vaginosis + vaginitis panel, vaginal 2022 023 [email or web address] Not available 3 16:28:31 culture, blood 1 2022 023 [email or web address] [facility] (Lab), [address] [place] [address], [address], 3 16:28:31 culture, blood 2 [address] (Lab), [address] [place] [address], [address], 3 16:28:31 CT + NG RNA, PCR, unspecifi ed specimen 2022 023 [email or web address] Not available 3 16:28:31 HIV-1 Ab, serum [address] (Lab), [address] [place] [address], [address], 3 16:28:30 RPR (rapid plasma reagin), serum [address] (Lab), [address] [place] [address], [address], 3 16:28:30 HBsAg (hepatiti s B surface Ag), serum [address] (Lab), [address] [place] [address], [address], 3 16:28:31 hepatitis C virus Ab, serum [address] (Lab), [address] [place] [address], [address], 3 16:28:31 Referral None recorded. Procedures None recorded. Surgeries None recorded. Imaging None recorded. Medication Orders levofloxa ryan 500 mg tablet 2023 024 [facility]armacy #[id number], [address] [place], [address], 4 16:07:37 Miconazol e-7 2 % vaginal cream 2023 024 [facility]armacy #[id number], [address] [place], [address], 4 23:43:08 Metrogel Vaginal 0.75 % (37.5 mg/5 gram) [address] [id number] [address] [place], [address], 4 23:43:08 Valtrex 500 mg tablet 2022 023 [email or web address] [facility]/Pharmacy #[id number], [address] [place], [address], 3 02:19:22 doxycycli ne hyclate [address] [facility] [id number] [address] [place], [address], 3 15:33:54 Valtrex [address] [id number] [address] [place], [address], 3 15:33:54 Flagyl [address] [id number] [address] [place], [address], 3 15:33:55 Patient TargetsNo targets recorded. Patient InstructionsNo instructions recorded. Reason for Referral None Reported. Results Created Date Observation Date Name Description Value Unit Range Abnormal Flag Note LastModifiedBy Organization Detail LastModifiedTime 11/26/1911/25/2022 URINA LYSIS glucose, (UA) NEGATI VE mg/dL negati ve Not Available [facility] [address] [place], [address], 11/25/2022 20:34:24 11/26/19 23 11/25/2022 URINA LYSIS bilirubin, urine NEGATI VE negati ve Not Available [facility] [address] [place], [address], 11/25/2022 20:34:24 11/26/19 23 11/25/2022 URINA LYSIS ketone, urine NEGATI VE mg/dL negati ve Not Available [facility] [address] [place], [address], 11/25/2022 20:34:24 11/26/1911/25/2022 URINA LYSIS specific gravity, urine 1.014 1.003- 1.030 Not Available [facility] [address] [place], [address], 11/25/2022 20:34:24 11/26/1911/25/2022 URINA LYSIS blood, urine NEGATI VE negati ve Not Available [facility] [address] [place], [address], 11/25/2022 20:34:24 11/26/1911/25/2022 URINA LYSIS pH, urine 5.5 5.0-8. 0 Not Available [facility] [address] [place], [address], 11/25/2022 20:34:24 11/26/1911/25/2022 URINA LYSIS protein, urine NEGATI VE mg/dL <= trace Not Available [facility] [address] [place], [address], 11/25/2022 20:34:24 11/26/1911/25/2022 URINA LYSIS urobilinogen , urine 0.2 E.U./ dL 0.2-1. 0 Not Available [facility] [address] [place], [address], 11/25/2022 20:34:24 11/26/1911/25/2022 URINA LYSIS nitrite, urine NEGATI VE negati ve Not Available [facility] [address] [place], [address], 11/25/2022 20:34:24 11/26/1911/25/2022 URINA LYSIS leukocyte esterase, urine SMALL negati ve abnormal Not Available [facility] [address] [place], [address], 11/25/2022 20:34:24 11/26/19 23 11/25/2022 URINA LYSIS RBC, urine 7 /hpf 0-4 high Not Available [facility] [address] [place] [address], [address], 11/25/2022 20:34:24 11/26/19 23 11/25/2022 URINA LYSIS WBC, urine 19 /hpf 0-4 high Not Available [facility] [address] [place] [address], [address], 11/25/2022 20:34:24 11/26/19 23 11/25/2022 URINA LYSIS epith cells, urine 146 /lpf 0-60 high Not Available [facility] [address] [place] [address], [address], 11/25/2022 20:34:24 11/26/19 23 11/25/2022 URINA LYSIS bacteria, urine MODERA TE negati ve abnormal Not Available [facility] [address] [place] [address], [address], 11/25/2022 20:34:24 11/26/19 23 11/25/2022 URINA LYSIS hyaline cast, urine 3 /lpf 0-3 Not Available [facility] [address] [place] [address], 17[address], 11/25/2022 20:34:24 11/26/19 23 11/25/2022 URINA LYSIS performing lab Perfor [facility] yumiko howard r of [facility] [address] [place] [address] Medic al Direbrien bellamy MD Not Available [facility] [address] [place] [address], [address], 11/25/2022 20:34:24 11/26/19 23 11/25/2022 URINE CULTU RE performing lab Perfor shar[facility] atoryuimko lopez membe r of [facility] Of [address] [place] [address] Medic al Direbrien bellamy MD Not Available [facility] [address] [place], [address], 11/28/2022 09:24:01 11/26/1911/28/2022 URINE CULTU RE urine culture DRUG RESIS TANT ORGAN ISM MRS A-MET MICHA CORNELIUS RESIS TANT STAPSd . DOMENICOU S RESUL TS FAXED TO DR.MA MCMULLEN ON 11/28 AT 0920 BY JOHN VINES ADDIT IONAL COLON Y TYPE( S) PRESE NT IN INSIG NIFIC ANT AMOUN TS. 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) Not Available [facility] [address] [place], [address], 11/28/2022 09:24:01 11/26/1911/28/2022 URINE CULTU RE report [...] <=0.5 Sensi tive Not Available [facility] [address] [place] [address], [address], 11/28/2022 09:24:01 11/26/19 23 11/26/2022 VAGIN OSIS DNA PANEL trichomonas vaginalis NEGATI VE negati ve Not Available [facility] [address] [place] [address], 34[address], 11/26/2022 13:58:41 11/26/19 23 11/26/2022 VAGIN OSIS DNA PANEL garderella vaginalis POSITI VE negati ve abnormal Not Available [facility] [address] [place] [address], 165[address], 11/26/2022 13:58:41 11/26/19 23 11/26/2022 VAGIN OSIS DNA PANEL josh species NEGATI VE negati ve Not Available [facility] [address] [place] [address], 394[address], 11/26/2022 13:58:41 11/26/19 23 11/26/2022 VAGIN OSIS DNA PANEL performing lab Perfor [facility], a membe r of [facility] Of [address] [place] [address] Medic al Dire sivakumar bellamy MD Not Available [facility] [address] [place] [address], [address], 11/26/2022 13:58:41 11/30/1911/29/2022 MRSA SURVE ILLAN CE PCR MRSA surveillance PCR MRSA PCR NOT DETEC JUDY Not Available [facility] [address] [place], [address], 11/29/2022 21:56:48 11/30/1911/29/2022 MRSA SURVE ILLAN CE PCR performing lab Perfor [facility] atorfernanda darling, yumiko membe r of [facility] [address] [place] [address] Medic al Dire sivakumar bellamy MD Not Available [facility] [address] [place], [address], 11/29/2022 21:56:48 11/30/1911/30/2022 CHLAM YDIA DNA SWAB chlamydia DNA swab NEGATI VE negati ve Not Available [facility] [address] [place] [address], 29[address], 11/30/2022 10:31:02 11/30/1911/30/2022 GC DNA SWAB GC DNA swab NEGATI VE negati ve Not Available [facility] [address] [place] [address], [address], 11/30/2022 10:31:03 11/30/1911/30/2022 GC DNA SWAB performing lab Perfor shar[facility] yumiko howard membe mary of [facility] [address] [place] [address] Medic al Direbrien bellamy MD Not Available [facility] [address] [place], [address], 11/30/2022 10:31:03 12/07/1912/06/2022 WOUND CULTU RE wound culture TNP Not Available [facility] [address] [place] [address], [address], 12/06/2022 19:52:45 12/07/19 23 12/06/2022 WOUND CULTU RE performing lab [facility]FOR SHAR[facility], a membe r of [facility] [address] [place] [address] Medic al Direc sivakumar bellamy MD Not Available [facility] [address] [place] [address], [address], 12/06/2022 19:52:45 12/07/1912/07/2022 VAGIN OSIS DNA PANEL trichomonas vaginalis NEGATI VE negati ve Not Available [facility] [address] [place] [address], 484[address], 12/07/2022 12:28:56 12/07/1912/07/2022 VAGIN OSIS DNA PANEL garderella vaginalis POSITI VE negati ve abnormal Not Available [facility] [address] [place] [address], 25557, 12/07/2022 12:28:56 12/07/1912/07/2022 VAGIN OSIS DNA PANEL josh species NEGATI VE negati ve Not Available [facility] [address] [place] [address], 24672, 12/07/2022 12:28:56 12/07/1912/07/2022 VAGIN OSIS DNA PANEL performing lab [facility] ishmael darling, [facility] [address] [place] [address] Medic al Direc sivakumar bellamy MD Not Available [facility] [address] [place] [address], [address], 12/07/2022 12:28:56 12/07/1912/13/2022 HERPE S CULTU RE herpes culture source DERMAL - FACE Not Available [facility] [address] [place] [address], 32695, 12/13/2022 09:38:09 12/07/1912/13/2022 HERPE S CULTU RE [...] tion thres hold. Test perfo rmed at [facility] , [address] , [place] [address] [phone] Katiuska payne MD, PhD - Medic al Direc tor Not Available [facility] [address] [place] [address], 35[address], 12/13/2022 09:38:09 12/07/19 23 12/13/2022 HERPE S CULTU RE performing lab [facility]FOR SH[facility], a membe r of [facility] Of [address] [place] [address] Medic al Direc tor - Mey bellamy MD Not Available [facility] [address] [place] [address], 48269, 12/13/2022 09:38:09 12/23/19 23 12/22/2022 URINA LYSIS glucose, (UA) NEGATI VE mg/dL negati ve Not Available [facility] [address] [place] [address], 91472, 12/22/2022 19:10:22 12/23/19 23 12/22/2022 URINA LYSIS bilirubin, urine NEGATI VE negati ve Not Available [facility] [address] [place] [address], 36181, 12/22/2022 19:10:22 12/23/19 23 12/22/2022 URINA LYSIS ketone, urine NEGATI VE mg/dL negati ve Not Available [facility] [address] [place] [address], 61713, 12/22/2022 19:10:22 12/23/19 23 12/22/2022 URINA LYSIS specific gravity, urine 1.018 1.003- 1.030 Not Available [facility] [address] [place], [address], 12/22/2022 19:10:22 12/23/19 23 12/22/2022 URINA LYSIS blood, urine NEGATI VE negati ve Not Available [facility] [address] [place], [address], 12/22/2022 19:10:22 12/23/19 23 12/22/2022 URINA LYSIS pH, urine 6.5 5.0-8. 0 Not Available [facility] [address] [place], [address], 12/22/2022 19:10:22 12/23/19 23 12/22/2022 URINA LYSIS protein, urine NEGATI VE mg/dL <= trace Not Available [facility] [address] [place], [address], 12/22/2022 19:10:22 12/23/19 23 12/22/2022 URINA LYSIS urobilinogen , urine 0.2 E.U./ dL 0.2-1. 0 Not Available [facility] [address] [place], [address], 12/22/2022 19:10:22 12/23/19 23 12/22/2022 URINA LYSIS nitrite, urine NEGATI VE negati ve Not Available [facility] [address] [place], [address], 12/22/2022 19:10:22 12/23/19 23 12/22/2022 URINA LYSIS leukocyte esterase, urine MODERA TE negati ve abnormal Not Available [facility] [address] [place], [address], 12/22/2022 19:10:22 12/23/19 23 12/22/2022 URINA LYSIS RBC, urine 3 /hpf 0-4 Not Available [facility] [address] [place], [address], 12/22/2022 19:10:22 12/23/19 23 12/22/2022 URINA LYSIS WBC, urine 69 /hpf 0-4 high Not Available [facility] [address] [place] [address], 85188, 12/22/2022 19:10:22 12/23/19 23 12/22/2022 URINA LYSIS epith cells, urine 18 /lpf 0-60 Not Available [facility] [address] [place] [address], 02747, 12/22/2022 19:10:22 12/23/19 23 12/22/2022 URINA LYSIS bacteria, urine HEAVY negati ve abnormal Not Available [facility] [address] [place] [address], 16349, 12/22/2022 19:10:22 12/23/19 23 12/22/2022 URINA LYSIS hyaline cast, urine 4 /lpf 0-3 high Not Available [facility] [address] [place] [address], 33727, 12/22/2022 19:10:22 12/23/19 23 12/22/2022 URINA LYSIS performing lab Perfor sharan [facility] yumiko howard membe r of [employer] [address] [place] [address] Medic al Direbrien bellamy MD Not Available [facility] [address] [place] [address], 56758, 12/22/2022 19:10:22 12/23/19 23 12/22/2022 URINE CULTU RE performing lab Perfor shar[facility] yumiko howard membe r of [facility] [employer] [facility] [address] [place] [address] Medic al Direbrien bellamy MD Not Available [facility] [address] [place] [address], 35882, 12/24/2022 10:46:56 12/23/1912/24/2022 URINE CULTU RE urine [...] Cao COLI Not Available [facility] [address] [place], [address], 12/24/2022 10:46:56 12/23/1912/24/2022 URINE CULTU RE urine culture cfu/m L COLON Y COUNT >100, 000 Not Available [facility] [address] [place], [address], 12/24/2022 10:46:56 12/23/1912/24/2022 URINE CULTU RE report [...] <=4 Sensi tive Not Available [facility] [address] [place] [address], 49281, 12/24/2022 10:46:56 12/23/19 23 12/23/2022 VAGIN OSIS DNA PANEL trichomonas vaginalis NEGATI VE negati ve Not Available [facility] [address] [place] [address], 10171, 12/23/2022 13:37:40 12/23/19 23 12/23/2022 VAGIN OSIS DNA PANEL garderella vaginalis POSITI VE negati ve abnormal Not Available [facility] [address] [place] [address], 84381, 12/23/2022 13:37:40 12/23/19 23 12/23/2022 VAGIN OSIS DNA PANEL josh species POSITI VE negati ve abnormal Not Available [facility] [address] [place] [address], 94506, 12/23/2022 13:37:40 12/23/19 23 12/23/2022 VAGIN OSIS DNA PANEL performing lab [facility]for [facility] haydeni es, [facility]ina [facility] Of [address] [place] [address] Medic al Direc sivakumar bellamy MD Not Available [facility] [address] [place] [address], 885[address], 12/23/2022 13:37:40 12/23/1912/24/2022 CHLAM YDIA DNA URINE chlamydia DNA urine NEGATI VE negati ve Not Available [facility] [address] [place], [address], 12/24/2022 12:54:02 12/23/19 23 12/24/2022 GC DNA URINE GC DNA urine NEGATI VE negati ve Not Available [facility] [address] [place], [address], 12/24/2022 12:54:03 12/23/1912/24/2022 GC DNA URINE performing lab Perfor sharan [facility], a membe r of [facility] [employer] [facility] [address] [place] [address] Medic al Tank bellamy MD Not Available [facility] [address] [place] [address], 15101, 12/24/2022 12:54:03 02/01/20 23 01/31/2023 WOUND CULTU RE performing lab Perfor sharan [facility], a membe r of [employer] [address] [place] [address] Medic al Direbrien bellamy MD Not Available [facility] [address] [place], [address], 02/03/2023 10:10:08 02/01/20 23 02/03/2023 WOUND CULTU RE wound culture FINAL : No patho gens noted ALYSE L SKIN SHAHEEN PRESE NT GRAM STAIN RESUL T NO POLYS , NO EPITH ELIAL CELLS , NO ORGAN ISMS NOTED Not Available [facility] [address] [place] [address], 10955, 02/03/2023 10:10:08 02/01/20 23 02/08/2023 HERPE S CULTU RE herpes culture source See Below RESUL T: [place]a-[place] l - Upper Lip Not Available [facility] [address] [place] [address], 12774, 02/08/2023 15:02:35 02/01/20 23 02/08/2023 HERPE S [...] tion thres hold. Test perfo rmed at [facility] [employer] al Labor at[facility] , [address] , [place] [address] [phone] Katiuska payne MD, PhD - Medic al Direc tor Not Available [facility] [address] [place] [address], 60077, 02/08/2023 15:02:35 02/01/20 23 02/08/2023 HERPE S CULTU RE performing lab [facility]for [facility], a [facility] of [facility] [address] [place] [address] Medic al Direc tor - Mey bellamy MD Not Available [facility] [address] [place], [address], 02/08/2023 15:02:35 03/02/19 24 03/02/2023 URINA LYSIS glucose, (UA) NEGATI VE mg/dL negati ve Not Available [facility] [address] [place], [address], 03/02/2023 19:29:10 03/02/19 24 03/02/2023 URINA LYSIS bilirubin, urine NEGATI VE negati ve Not Available [facility] [address] [place] [address], 87466, 03/02/2023 19:29:10 03/02/19 24 03/02/2023 URINA LYSIS ketone, urine NEGATI VE mg/dL negati ve Not Available [facility] [address] [place], [address], 03/02/2023 19:29:10 03/02/19 24 03/02/2023 URINA LYSIS specific gravity, urine 1.021 1.003- 1.030 Not Available [facility] [address] [place] [address], 70695, 03/02/2023 19:29:10 03/02/19 24 03/02/2023 URINA LYSIS blood, urine TRACE negati ve Not Available [facility] [address] [place] [address], 19397, 03/02/2023 19:29:10 03/02/19 24 03/02/2023 URINA LYSIS pH, urine 5.5 5.0-8. 0 Not Available [facility] [address] [place] [address], 37322, 03/02/2023 19:29:10 03/02/19 24 03/02/2023 URINA LYSIS protein, urine TRACE mg/dL <= trace Not Available [facility] [address] [place] [address], 33967, 03/02/2023 19:29:10 03/02/19 24 03/02/2023 URINA LYSIS urobilinogen , urine 0.2 E.U./ dL 0.2-1. 0 Not Available [facility] [address] [place] [address], 35918, 03/02/2023 19:29:10 03/02/19 24 03/02/2023 URINA LYSIS nitrite, urine POSITI VE negati ve abnormal Not Available [facility] [address] [place] [address], 59304, 03/02/2023 19:29:10 03/02/19 24 03/02/2023 URINA LYSIS leukocyte esterase, urine TRACE negati ve abnormal Not Available [facility] [address] [place] [address], 52627, 03/02/2023 19:29:10 03/02/19 24 03/02/2023 URINA LYSIS RBC, urine 4 /hpf 0-4 Not Available [facility] [address] [place] [address], 04714, 03/02/2023 19:29:10 03/02/19 24 03/02/2023 URINA LYSIS WBC, urine 21 /hpf 0-4 high Not Available [facility] [address] [place] [address], 03400, 03/02/2023 19:29:10 03/02/19 24 03/02/2023 URINA LYSIS epith cells, urine > 150 /lpf 0-60 high Not Available [facility] [address] [place] [address], 45987, 03/02/2023 19:29:10 03/02/19 24 03/02/2023 URINA LYSIS bacteria, urine HEAVY negati ve abnormal Not Available [facility] [address] [place] [address], 78048, 03/02/2023 19:29:10 03/02/19 24 03/02/2023 URINA LYSIS hyaline cast, urine 14 /lpf 0-3 high Not Available [facility] [address] [place] [address], 52603, 03/02/2023 19:29:10 03/02/19 24 03/02/2023 URINA LYSIS performing lab Perfor shar[facility], [facility] [address] [place] [address] Medic al Dire sivakumar bellamy MD Not Available [facility] [address] [place] [address], 93870, 03/02/2023 19:29:10 03/13/19 24 03/14/2023 VAGIN OSIS DNA PANEL trichomonas vaginalis NEGATI VE negati ve Not Available [facility] [address] [place] [address], 58021, 03/14/2023 12:01:24 03/13/19 24 03/14/2023 VAGIN OSIS DNA PANEL garderella vaginalis POSITI VE negati ve abnormal Not Available [facility] [address] [place] [address], 52206, 03/14/2023 12:01:24 03/13/19 24 03/14/2023 VAGIN OSIS DNA PANEL josh species POSITI VE negati ve abnormal Not Available [facility] [address] [place] [address], 13971, 03/14/2023 12:01:24 03/13/19 24 03/14/2023 VAGIN OSIS DNA PANEL performing lab Perfor [facility] atorfernanda darling, a membe r of [employer] [place] [address] Medic al Direbrien bellamy MD Not Available [facility] [address] [place] [address], 02827, 03/14/2023 12:01:24 03/13/19 24 03/13/2023 URINE CULTU RE performing lab Perfor [facility] atorfernanda darling, a membe r of [employer] [address] [place] [address] Medic al Tank bellamy MD Not Available [facility] [address] [place] [address], 72968, 03/15/2023 12:57:50 03/13/19 24 03/15/2023 URINE CULTU [...] MAYRA A COLI Not Available [facility] [address] [place] [address], 50696, 03/15/2023 12:57:50 03/13/19 24 03/15/2023 URINE CULTU RE urine culture cfu/m L COLON Y COUNT >100, 000 Not Available [facility] [address] [place] [address], [place], [address], 03/15/2023 12:57:50 03/13/19 24 03/15/2023 URINE CULTU [...] <=4 Sensi tive Not Available [facility] [address] [place] [address], 33226, 03/15/2023 12:57:50 01/02/2001/02/2024 URINA LYSIS MICRO SCOPI C ONLY RBC, urine 4.2 /hpf 0-4 high Not Available [facility] [address] [place] [address], 91659, 01/02/2024 19:34:08 01/02/20 24 01/02/2024 URINA LYSIS MICRO SCOPI C ONLY WBC, urine 1.5 /hpf 0-4 Not Available [facility] [address] [place] [address], 84829, 01/02/2024 19:34:08 01/02/20 24 01/02/2024 URINA LYSIS MICRO SCOPI C ONLY squamous epithelial, urine 71 /lpf 0-60 high Not Available [facility] [address] [place] [address], 98757, 01/02/2024 19:34:08 01/02/20 24 01/02/2024 URINA LYSIS MICRO SCOPI C ONLY bacteria, urine Negati ve /hpf negati ve Not Available [facility] [address] [place] [address], 88781, 01/02/2024 19:34:08 01/02/20 24 01/02/2024 URINA LYSIS MICRO SCOPI C ONLY hyaline casts, urine 2.4 /lpf 0-3 Not Available [facility] [address] [place] [address], 24407, 01/02/2024 19:34:08 01/02/20 24 01/02/2024 URINA LYSIS MICRO SCOPI C ONLY note See Report [facility], [address] [facility], [place] [address] [place], [place] [address] Not Available [facility] [address] [place] [address], 68542, 01/02/2024 19:34:08 01/02/20 24 01/02/2024 CULTU RE URINE .note See Note Origi nal Order ing Provi javier: ASIM WELCH YANNA [facility] - [facility] - [address] [facility] [place] [address] Not Available [facility] [address] [place], [address], 01/04/2024 11:55:59 01/02/20 24 01/02/2024 CULTU RE URINE culture, urine No growth Not Available [facility] [address] [place], [address], 01/04/2024 11:55:59 01/02/20 24 01/02/2024 VAGIN ITIS PATHO GENS MOLEC ULAR STUDY .note See Note Origi nal Order ing Provi javier: ASIM WELCH YANNA [facility] - Labor at[facility] - [address] [facility] [place] [address] Not Available [facility] [address] [place], [address], 01/04/2024 11:13:59 01/02/20 24 01/02/2024 VAGIN ITIS PATHO GENS MOLEC ULAR STUDY trichomonas vaginalis Negati ve negati ve Not Available [facility] [address] [place] [address], [id number], 01/04/2024 11:13:59 01/02/20 24 01/02/2024 VAGIN ITIS PATHO GENS MOLEC ULAR STUDY gardnerella vaginalis Positi ve negati ve abnormal Not Available [facility] [address] [place] [address], [id number], 01/04/2024 11:13:59 01/02/20 24 01/02/2024 VAGIN ITIS PATHO GENS MOLEC ULAR STUDY josh species Negati ve negati ve Not Available [facility] [address] [place] [address], [id number], 01/04/2024 11:13:59 Result Notes None recorded. Problems Name Problem SNOMED Code Status Onset Date Resolution Date Notes Provider Name and Address Organization Details Recorded Time Bacteria l vaginosi s 284141305 Active 2022 Belen Vera MD [address] [facility], [place], [address] , [place] AQUILES VERA MD [facility] 3 16:49:24 Urinary tract infectio us disease 92039416 Active 2022 Belen Vera MD [address] [facility], [place], [address] , [place] AQUILES VERA MD [facility] 3 16:49:28 Genital herpes simplex 25123377 Active 2022 Belen Vera MD [address] [facility], [place], [address] , [place] AQUILES VERA MD [facility] [address] 02:25:[address] Concept Active 2017 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; 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; Report Immunity to Registry : Yes; Notes: 7; Not Available [facility] 4 06:57:37 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; snomedde 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; Report Immunity to Registry : Yes; Notes: 7; Carrier of Group B streptoc occus; snomedde 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; Report Immunity to Registry : Yes; Notes: 7; Not Available [facility] 4 06:57:37 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; 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; Report Immunity to Registry : Yes; Notes: 7; Not Available [facility] 4 06:57:37 Acute vaginiti s 18097492 Active 2016 Acute vaginiti s; snomedde scriptio n: Gardnere lla vaginiti s; Report Immunity to Registry : Yes; Notes: keyla payne; Not Available [facility] 4 06:57:37 Abscess of skin and/or subcutan eous tissue 64883505 Active 2013 Abscess of skin AND/OR subcutan eous tissue; snomedde scriptio n: Abscess of skin AND/OR subcutan eous tissue; Report Immunity to Registry : Yes; Not Available [facility] 4 06:57:37 Cellulit is 744653938 Active 2013 Cellulit is and abscess of unspecif ied sites; snomedde scriptio n: Abscess of skin AND/OR subcutan eous tissue; Report Immunity to Registry : Yes; Not Available [facility] 4 06:57:37 Gardnere lla vaginiti s 608979830 Active 2016 Gardnere lla vaginiti s; snomedde scriptio n: Gardnere lla vaginiti s; Report Immunity to Registry : Yes; Notes: gardenjason la; Not Available [facility] 4 06:57:38 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; snomedde scriptio n: 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; Report Immunity to Registry : Yes; Notes: MRSA screen negative 10/02 past hx.; Not Available [facility] 4 06:57:38 Candidia sis of vagina 58713399 Active 2016 Candidia sis of vagina; snomedde scriptio n: Candidia sis of vagina; Report Immunity to Registry : Yes; Notes: 10/2016; Not Available [facility] 4 06:57:38 Kidney stone 64321335 Active 2013 Calculus of kidney; snomedde scriptio n: Kidney stone; Report Immunity to Registry : Yes; Kidney stone; snomedde scriptio n: Kidney stone; Report Immunity to Registry : Yes; Not Available [facility] 4 06:57:38 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 91920620 Active 2017 Carrier or suspecte d carrier of other specifie d bacteria l diseases ; snomedde scriptio n: 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; Report Immunity to Registry : Yes; Notes: MRSA screen negative 10/02 past hx.; Not Available [facility] 4 06:57:38 Candidal vulvovag initis 76309031 Active 2016 Candidia sis of vulva and vagina; snomedde scriptio n: Candidia sis of vagina; Report Immunity to Registry : Yes; Notes: 10/2016; Not Available [facility] 4 06:57:38 Medullar y sponge kidney 429354388 Active 2013 Medullar y sponge kidney; snomedde scriptio n: Medullar y sponge kidney; Report Immunity to Registry : Yes; Not Available [facility] 4 06:57:38 Urinary tract infectio us disease 44510391 Completed 202204/12/2023 Urinary tract infectio n, site [...] Yes; ReasonDa te: 04/01/19 23; Not Available [facility] 4 06:57:38 Diabetes mellitus 11273514 Active 2013 Diabetes mellitus ; snomedde scriptio n: Diabetes mellitus ; Report Immunity to Registry : Yes; Not Available [facility] 4 06:57:39 Type 2 diabetes mellitus without complica tion 492217270 Active 2013 Diabetes mellitus without mention of complica tion, type II or unspecif ied type, not stated as uncontro lled; snomedde scriptio n: Diabetes mellitus ; Report Immunity to Registry : Yes; Not Available [facility] 4 06:57:39 Problem Notes None recorded. [...] lone 100,000 unit/gram -0.1 % topical ointment 872258 units/g- 0.1% Quantity : 1; 1 refill(s [...] no; Not Available Not Available Not Available [facility] Test strips USE TO TEST BLOOD SUGAR [...] Available Not Available Not Available [facility] spacer USE WITH INHALER DIRECTED active [...] Available Not Available No t Available Fluvirin [id number] 45 mcg (15 mcg x 3)/0.5 mL [...] no; Not Available Not Available Not Available [facility] (15 mcg x 3)/0.5 mL intramusc ular suspensio n trivalen t Quantity : ; 0 refill(s ) 05/08 completed VACCINE_ IND: yes; VACCINE_ NAME: Influenz a, seasonal , injectab le; SU_FULL_ NAME: Belen leon; VIS_DATE : 19:25:47 .0; Not Available Not Available Not Available [facility] Quad 60 mcg (15 mcg x [...] Not Available Not Available No t Available [facility] Quad 60 mcg (15 mcg x [...] Updated DateTime 3 152.4 cm 22.8 kg/m2 53547.3 1 g 99 % 99 % 55 /min 98.7 [degF] 100 mm[Hg] 80 mm[Hg] Angel VERA MD [facility] 3 15:21:07 Date Recorded Body height Heart rate Respiratory rate Body temperature Body mass index (BMI) Body weight Systolic blood pressure Diastolic blood pressure Provider Name and Address Organization Details Last Updated DateTime 4 152.4 cm 60 /min 10 /min 98.4 [degF] 25.4 kg/m2 69411.0 1 g 100 mm[Hg] 80 mm[Hg] Lesly VERA MD [facility] 4 16:06:11 Date Recorded Body height Body temperature Provider N varun and Address Organization Details Last Updated DateTime 01/31/2023 152.4 cm 98 [degF] Stacy VERA MD [facility] 01/31/2023 16:17:53 Social History Question Answer Notes LastModified by Organizat ion Details LastModified Time Tobacco Smoking Status Never Smoker AQUILES Hui MD [facility] 11/25/2022 14:10:40 Are You Blind Or Do You Have Difficulty Seeing? No Information not available 11/25/2022 Are You Currently Employed? No [email or web address] Information not available 11/25/2022 Are You Deaf Or Do You Have Serious Difficulty Hearing? No Information not available 11/25/2022 Which Of Your Hands Is Dominant? Right [email or web address] Information not available 11/25/2022 What Is Your Relationship Status? Single [email or web address] Information not available 11/25/2022 Have You Recently Traveled Abroad? No [email or web address] Information not available 11/25/2022 Sex: Female Functional Status Question Answer Note LastModified by Organizat ion Details LastModified Time Do you have difficulty walking or climbing stairs? No [email or web address] Information not available 11/25/2022 Are you able to walk? [email or web address] Information not available 11/25/2022 Do you have difficulty doing errands alone? No [email or web address] Information not available 11/25/2022 Are you able to care for yourself? Yes [email or web address] Information not available 11/25/2022 Do you have difficulty dressing or bathing? No [email or web address] Information not available 11/25/2022 Mental Status Question Answer Note LastModified by Organization D etails LastModified Time Do you have difficulty concentrating, remembering or making decisions? No [email or web address] Information no t available 11/25/2022 Family History [...] Note 621 Belen Vera MD Main Office [address] [place] [phone] 11/25/2022 13:56:27 11/30/2022 09:23:42 Exposure to Human immunodeficiency virus 735528569 Z20.6 PreP; STI labs. Awaitig allergy eval and management Plan is to start Apretude once she gets cleared by mercury cracking tester. Apretude is already in the office, and [...] for STI prevention . Bacterial vaginosis 4197 94556 N76.0 BV: metronidaz ole cream daily for 7 days PRN BD affirm ordered Urinary tr act infectious disease 21058523 N39.0 Recurrent UTI. on Macrodanti n suppressio n tx qd. u/a and U/C ordered. will adjust tx if positive UTI. might have another organis, hydration. to hospital if acute or worsening sx while culture is being processed. Candidiasis of vagina 72 098304 B37.31 fluconazol e qw for suppressio n tx. to call if active infection as dose would change.BD affirm 665 Belen Vera MD Main Office [address] [place] [phone] 11/29/2022 15:03:23 11/30/2022 09:29:43 Exposure to Human immunodeficiency virus 089218916 Z20.6 PreP; STI labs. Plan is to start Apretude once she gets cleared by mercury cracking tester. Apretude is already in the office, and [...] for STI prevention . Bacterial vaginosis 4197 29580 N76.0 BV: metronidaz ole cream daily for 7 days Urinary tr act infectious disease 86609032 N39.0 Recurrent UTI Ecoli. on Macrodanti n suppressio n tx qd. MRSA UTI. Start Doxycyclin e 100mg po bid x 14 days. B/c. CBC,ALT, AST, creatinine . may need to adjust antibiotic based on workup and response hydration. to hospital if acute or worsening sx while culture is being processed. Candidiasis of vagina 72 813646 B37.31 fluconazol e qw for suppressio n tx. to call if active infection as dose would change.BD affirm Localized eruption of skin 809188557 R21 facial. swelling.w orse with steroid cream. hold steroidsba cterial/fu ngal skin swab obtained. .mupirocin qd 770 Belen Vera MD Main Office [address] [place] [address] 12/06/2022 12:30:04 12/06/2022 13:20:12 Exposure to Human immunodeficiency virus 024684008 Z20.6 PreP; STI labs. Plan is to start Apretude once she gets cleared by mercury cracking tester. Apretude is already in the office, and [...] for STI prevention . Bacterial vaginosis 4197 13476 N76.0 BV: flagyl 500mg po bid x 7 days.SHE WAS NOT ABLE TO GET CREAM, AND HAS ACTIVE INFECTION AND POSITIVE bd AFFirm Urinary tr act infectious disease 46843124 N39.0 Recurrent UTI Ecoli. on Macrodanti n [...] is being processed. Candidiasis of vagina 72 791310 B37.31 fluconazol e qw for suppressio n tx. to call if active infection as dose would change.BD affirm Localized eruption of skin 063668353 R21 improved facial. swelling.h old steroidvir al swab obtainedmu pirocin qdf/u dermatolog y/allergis t Genital he rpes simplex 71727595 A60.9 1018 Belen Vera MD Main Office [address] [place] [address] 12/22/2022 15:10:16 12/22/2022 16:59:50 Exposure to Human immunodeficiency virus 165116165 Z20.6 PreP; STI labs.Plan is to start Apretude once she gets cleared by mercury cracking tester. Apretude is already in the office, and [...] for STI prevention . Bacterial vaginosis 4197 00624 N76.0 BV:resolve d. Urinary tr act infectious disease 04594497 N39.0 Recurrent hx UTI Ecoli. hold Macrodanti [...] is being processed. Genital he rpes simplex 65380704 A60.9 1468 Belen Vera MD Main Office [address] [place] [phone] 01/31/2023 16:14:07 01/31/2023 17:19:06 Exposure to Human immunodeficiency virus 893095291 Z20.6 PreP; STI labs.Plan is to start [...] prevention . Urinary tr act infectious disease 12837860 N39.0 Recurrent hx UTI Ecoli. Macrodanti n suppressio n tx qd.MRSA UTI. s/p Doxycyclin e 100mg po bid x 14 days. B/C negative.h ydration. to hospital if acute or worsening sx while culture is being processed. 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 Macrodanti n suppressio n tx qd.u/a and u/c; pt will come in to office, especially if worsening of sx.hydrati on.to hospital if acute or worsening sx while culture is being processed. 1893 Belen Vera MD Main Office [address] [place] [address] 03/13/2023 13:57:37 03/17/2023 13:46:02 Exposure to Human immunodeficiency virus 139725564 Z20.6 PreP;.Plan is to start Apretude within the next month once pt is ready.Init stefan, she will start PreP with PO cabotegrav ir, and if tolerates PO cabotegrav ir for several weeks, then will switch to IM Apretude qm x2, then QOM.condom use for STI prevention . Urinary tr act infectious disease 63835488 N39.0 Recurrent hx UTI Ecoli. Macrodanti n suppressio n tx qd.u/a and u/cincreas e nitrofuran toin 100mg po bid. once culture results available, will adjust tx if and as neededhydr ation. call if worseningt o hospital if acute or worsening sx while culture is being processed. Bacterial vaginosis 4197 43777 N76.0 BD affirm Candidal vulvovaginitis 11522607 B37.31 BD Affirm. prefers fluconazol e. 20563 Belen Vera MD Main Office [address] [place] [address] 01/02/2024 15:50:41 01/02/2024 17:04:04 Urinary tract infectious disease 11363091 N39.0 Recurrent hx UTI Ecoli.past hx Macrodanti [...] Castellano Member ID Guarantor Name 12/22/2022 1 [facility] - DOS ON OR AFTER 2022 - CORRECTION OPTIONS AND ONE CARE (MEDICARE REPLACEMENT/ADV ANTAGE - PPO) Guillermina Townsend [id number] Guillermina Townsend 01/31/2023 1 [facility] [employer] - DOS ON OR AFTER 2022 - CORRECTION OPTIONS AND ONE CARE (MEDICARE REPLACEMENT/ADV ANTAGE - PPO) Guillermina Townsend [id number] Guillermina Townsend 02/27/2023 1 [employer] - DOS ON OR AFTER 2022 - CORRECTION OPTIONS AND ONE CARE (MEDICARE REPLACEMENT/ADV ANTAGE - PPO) Guillermina Townsend [id number] Guillermina Townsend 03/13/2023 1 [facility] - DOS ON OR AFTER 2022 - CORRECTION OPTIONS AND ONE CARE (MEDICARE REPLACEMENT/ADV ANTAGE - PPO) Guillermina Townsend [id number] Guillermina Townsend 01/02/2024 1 [facility] CARE [facility] - DOS ON OR AFTER 2022 - CORRECTION OPTIONS AND ONE CARE (MEDICARE REPLACEMENT/ADV ANTAGE - PPO) Guillermina Townsend [id number] Guillermina Townsend Notes Date Note Type Note [...] Syphilis ne; GC/Chlamydia neg Belen Vera MD [address] [place] [address], [phone], AQUILES VERA MD [facility] 12/22/2022 15:45:08 01/31/2023 text/html PreP.Plan is to [...] Syphilis ne; GC/Chlamydia neg Belen Vera MD [address] [place] [address], [phone], AQUILES VERA MD [facility] 02/01/2023 02:25:47 02/27/2023 text/html uti resolved. re cent e coli tx macrobid. not sure if ongoing infectionmacrobid qd suppression tx.no back pain. no fever.07/02/21 eGFR>60; AST/ALT wnl; CBC wnl;HIV neg; Syphilis ne; GC/Chlamydia neg11/2022 labs [place] HIV neg; HCV and HBV neg; eGFR>60; AST/ALt nl; RPR NR Belen Vera MD [address] [place] [address], [phone], AQUILES VERA MD [facility] 03/15/2023 00:20:43 03/13/2023 text/html PreP.will call isaac [...] AST/ALt nl; RPR NR Belen Vera MD [address] [place] [address], [phone], AQUILES VERA MD [facility] 03/14/2023 23:50:30 01/02/2024 text/html uti sx. hx [...] AST/ALt nl; RPR NR Belen Vera MD [address] [place] [address], [phone], AQUILES VERA MD [facility] 01/11/2024 13:03:43 OBGyn Episode No OBEpisode recorded.
--- OUTSIDE RECORDS SUMMARY | 2024-04-09 22:10 | XMS_ITS | Encounter Summary ---
Author Organization [facility] Address [address] [place] [address] [address] [place] [address] Care Team Providers Care Instructional Technologist Name Role Phone Kelly Hanley MD Primary Care Pro vider Reason for Visit * Reason Onset Date Comments Referral 10/17/2022 Encounter Details Date Type Department Care Team ([facility] st Contact Info) Description 10/17/2022 Telephone [facility] [address] [place] [address] Kelly Hanley MD [address] [place] [address] Referral Social History Tobacco Use Types Packs/Day [...] referral as a urgency. Please contact at [phone] documented in this encounter Plan of Treatment Upcoming Encounters Date Type Department Care Team (Late st Contact Info) Description 06/04/2024 1:30 PM EDT Office Visit [facility] [address] [place], [place] [phone] Kelly Hanley MD [address] [place], [place] [phone] documented as of this encounter Visit Diagnoses Not on filedocumented in this encounter Additional Health Concerns Assessment Noted Time PHQ-9 Depression Total Score: 16 023 10:50 AM EDT documented as of this encounter Care Teams Instructional Technologist Relationship Specialty Start Date End Date Kelly Hanley MD [address] [place] [phone] PCP - General Internal Medicine 07/22/22 documented as of this encounter
--- OUTSIDE RECORDS SUMMARY | 2024-04-09 22:10 | XMS_ITS | Encounter Summary ---
Author Organization [employer] Address [address] [place] [address] [address] [place] [address] Care Team Providers Care Ophthalmology Assistant Name Role Phone Kelly Hanley MD Primary Care Pro vider Encounter Details Date Type Department Care Team (Late st Contact Info) Description 04/09/2024 Orders Only GENERIC EXTERNAL DATA DEPARTMENT Provider, [...] 1:30 PM EDT Office Visit [facility] [address] [place] [phone] Kelly Hanley MD [address] [place] [address] documented as of this encounter Procedures Procedure Name Priority Date/Time Associated Diagnosis Comments XR CHEST 2 VIEWS Routine 04/09/2024 6:42 PM EST HIGH SENSITIVITY TROPONIN I Routine 04/09/2024 4:29 PM EST SARS COV2/INFLUENZA A/B AND RSV RNA QL NAAT Routine 04/09/2024 4:29 PM EST CBC WITH AUTO DIFFERENTIAL Routine 04/09/2024 4:29 PM EST HCG, TOTAL, QN Routine 04/09/2024 4:29 PM EST MAGNESIUM Routine 04/09/2024 4:29 PM EST LIPASE Routine 04/09/2024 4:29 PM EST HEPATIC FUNCTION PANEL Routine 04/09/2024 4:29 PM EST BASIC METABOLIC PANEL Routine 04/09/2024 4:29 PM EST documented in this encounter Results * XR Chest 2 Views (04/09/2024 6:42 PM EST) Anatomical Region Laterality Modality Chest Radiographic Latanya ging 04/09/2024 6:42 PM EST Narrative 04/09/2024 6:43 PM EST ? [facility] ?[address] ?[place] [address] ?XRay Report ? Signed ? Patient: Townsend,Guillermina ?MR#: [id number] ? : 1985 ?Acct:[id number] ? Age/Sex: 38 / F ?ADM Date: 04/09/24 ? Loc: HO.ED ? Attending Dr: ? Ordering Physician: Federica Tate ?? Date of Service: 04/09/24 ?? Procedure(s): XR chest 2V ?? Accession Number(s): [id number] ? cc: Federica Tate; Kelly Hanley MD ? CLINICAL HISTORY: SOB, cough ? 2 view chest x-ray ? Comparison: CR/SR - XR CHEST 2V - 04/02/24 11:04 EST ? Findings: ?? The lungs are clear. ?? Normal size heart. ?? No acute fracture. ? IMPRESSION: ?? 1. No acute findings. ? This document has been electronically signed by: Stacy Lynch MD on ?? 04/09/2024 18:42:15 ? Dictated By: ?Stacy Lynch MD ? Signed By: ?<Electronically signed by Stacy Lynch MD in OV> ? 04/09/24 1843 ? DD/ 41 ? TD/TT: 04/09/241841 ? [employer] Supervisor: ? Procedure Note Bridger, Padmini - 04/09/2024 [place] [address] XRay Report Signed Patient: Guillermina Townsend#: [id number] : 1985Acct:[id number] Age/Sex: 38 / FADM Date: 04/09/24 Loc: HO.ED Attending Dr: Ordering Physician: Federica Tate Date of Service: 04/09/24 Procedure(s): XR chest 2V Accession Number(s): [id number] cc: Federica Tate; Kelly Hanley MD CLINICAL HISTORY: SOB, cough 2 view chest x-ray Comparison: CR/SR - XR CHEST 2V - 04/02/24 11:04 EST Findings: The lungs are clear. Normal size heart. No acute fracture. IMPRESSION: 1. No acute findings. This document has been electronically signed by: Stacy Lynch MD on 04/09/2024 18:42:15 Dictated By: Stacy Lynch MD Signed By: <Electronically signed by Stacy Lynch MD in OV> 04/09/241842 DD/ 41 TD/TT: 04/09/241841 [employer] Supervisor: [facility] External Provider IMG XR PROCEDURES Edited Result - Final * (ABNORMAL) SARS-CoV-2 RNA, Influenza A/B, and RSV RNA, Ql NAAT (04/09/2024 4:29 PM EST) Pathologist [facility] Influenza A PCR POSITIVE(A) Negative [facility] Influenza B PCR NEGATIVE Negative [facility] Resp Syncy Virus RNA Qual PCR NEGATIVE Negative [facility] SARS COV2 PCR NEGATIVE Negative [facility] Comment:All test results mus t be [...] use by authorized laboratories.Testing performed on the [employer] GeneXpert utilizingreal-time RT-PCR.All SARS CoV2 and positive influenza A/B results arereported to [facility]. 04/09/2024 4:29 PM EST 04/09/2024 4:33 PM EST us Generic External Data Provider LAB MICROBIOLOGY - GENERAL ORDERABLES Final Result [facility] [address] [place] [phone] * High Sensitivity Troponin I (04/09/2024 4:29 PM EST) Pathologist [facility] TROPONIN I HIGH SENSITIVITY <2.7 <3.5 - 17.0 ng/L [facility] Comment:The Castellanos high sens itivity Troponin-I results should beused in conjunction with other diagnostic information suchas ECG, clinical observations and information, and patientsymptoms to aid in the diagnosis of [place]. 04/09/2024 4:29 PM EST 04/09/2024 4:33 PM EST Generic External Data Provider LAB BLOOD ORDERAB LES Final Result Performing Organization Address City/[facility]/ZIP Co de Phone Number [facility] [address] [place] [phone] * hCG, Total, Quantitative (04/09/2024 4:29 PM EST) HCG Quantitative <2 mIU/mL [facility] Comment:Weeks post LMP Appro ximate hCG(Last Menstrual Period) Range (mIU/ml)3 - 4 weeks 9 - 1304 - 5 weeks 75 - 2,6005 - 6 weeks 850 - 20,8006 - 7 weeks 4000 - 100,2007 - 12 weeks 11,500 - 289,45896 - 16 weeks 18,300 - 137,36676 - 29 weeks (2nd trimester) 1,400 - 53,01140 - 41 weeks (3rd trimester) 940 - 60,000The Catsellanos B- hCG assay is used for the early detection ofpregnancy; it cannot be used to diagnose any conditionunrelated to . If a B-hCG level is not supportedby the clinical evidence, results should be confirmed by analternative method (qualitative urine hCG, for example). 04/09/2024 4:29 PM EST 04/09/2024 4:33 PM EST us Generic External Data Provider LAB BLOOD ORDERAB LES Final Result Performing Organization Address [facility] Co de Phone Number [facility] [address] [place] [phone] * Lipase (04/09/2024 4:29 PM EST) Lipase 23 8 - 78 U/L [facility] 04/09/2024 4:29 PM EST 04/09/2024 4:33 PM EST us Generic External Data Provider LAB BLOOD ORDERAB LES Final Result Performing Organization Address City/[facility]/ZIP Co de Phone Number [facility] [address] [place] [phone] * Magnesium (04/09/2024 4:29 PM EST) Magnesium 2.2 1.6 - 2.6 mg/dL [facility] 04/09/2024 4:29 PM EST 04/09/2024 4:33 PM EST Generic External Data Provider LAB BLOOD ORDERAB LES Final Result Performing Organization Address [facility] Co de Phone Number [facility] [address] [place] [address] [phone] * (ABNORMAL) Basic Metabolic Panel (04/09/2024 4:29 PM EST) Sodium 140 135 - 145 mmol/L [facility] Potassium 3.5 3.3 - 5.1 mmol/L [facility] Chloride 103 96 - 108 mmol/L [facility] Carbon Dioxide 29 22 - 29 mmol/L [facility] Anion Gap 12 12 - 20 [facility] Urea Nitrogen (BUN) 8(L) 9 - 16 mg/dL [facility] Creatinine, Serum 0.67 0.5 - 1.4 mg/dL [facility] Creatinine Clr Calc Pharmacy 90.5 [facility] Comment:Provided height and weight: 152.4 cm,55.3 kg.eGFR (calculated from the MDRD study equation) and eCrCl(calculated from the Cockcroft-Gault equation) are based ondifferent parameters and may not yield comparable results.If eCrCl result is absurd, please check patient'sheight/weight. Estimated Glomerular Filt Rate >60 [facility] Comment:Chronic Kidney Disea se: Estimated GFR < 60 mL/min/1.60m1Lpfxai Kidney Disease: Estimated GFR < 15 mL/min/1.73m2 Glucose 84 60 - 115 mg/dL [facility] Calcium 8.9 8.4 - 10.2 mg/dL [facility] 04/09/2024 4:29 PM EST 04/09/2024 4:33 PM EST Generic External Data Provider LAB BLOOD ORDERAB LES Final Result Performing Organization Address [facility] Co de Phone Number [facility] [address] [place] [phone] * Hepatic Function Panel (04/09/2024 4:29 PM EST) Pathologist [facility] Bilirubin, Total 0.5 0.0 - 1.0 mg/dL [facility] Bilirubin, Direct 0.1 0.0 - 0.5 mg/dL [facility] Aspartate Amino Transferase 23 5 - 31 U/L [facility] Alanine Aminotransferase 23 0 - 31 U/L [facility] Total Protein 7.7 6.5 - 8.0 g/dL [facility] Albumin Level 4.2 3.5 - 5.0 g/dL [facility] Alkaline Phosphatase 56 39 - 117 U/L [facility] 04/09/2024 4:29 PM EST 04/09/2024 4:33 PM EST [employer] External Data Provider LAB BLOOD ORDERAB LES Final Result Performing Organization Address [facility] Co de Phone Number [facility] [address] [place] [phone] * (ABNORMAL) CBC auto differential (04/09/2024 4:29 PM EST) White Blood Count 7.3 4.8 - 10.8 X10*3/uL [facility] Red Blood Count 5.27 4.20 - 5.50 X10*6/uL [facility] Hemoglobin 15.0 12.0 - 16.0 g/dl [facility] Hematocrit 44.5 37.0 - 47.0 % [facility] Mean Corpuscular Volume 84.4 80.0 - 98.0 fL [facility] Mean Corpuscular Hemoglobin 28.5 27.0 - 33.0 pg [facility] Mean Corpuscular HGB Conc 33.7 31.0 - 35.0 g/dl [facility] Red Cell Distribution Width 13.0 11.0 - 16.0 % [facility] Platelet Count 362 160 - 400 X10*3/uL [facility] Mean Platelet Volume 9.7 9.4 - 12.3 fL [facility] Neutrophils Percent Auto 54.9 45 - 73 % [facility] Imm Gran Pct Auto 0.7(H) 0.0 - 0.4 % [facility] Lymphocytes Percent Auto 33.6 20 - 40 % [facility] Monocytes Percent Auto 10.6 2 - 11 % [facility] Eosinophils Percent Auto 0.1 0 - 4 % [facility] Basophils Percent Auto 0.1 0 - 2 % [facility] NRBC Pct Auto 0.0 0.0 - 0.2 /100WBC [facility] Neutrophils Absolute Auto 4.0 2.0 - 8.3 x10*3/uL [facility] Imm Gran Abs Auto 0.05(H) 0.00 - 0.03 X10*3/uL [facility] Lymphocytes Absolute Auto 2.4 1.2 - 4.9 X10*3/uL [facility] Monocytes Absolute Auto 0.8 0.1 - 1.2 X10*3/uL [facility] Eosinophils Absolute Auto 0.0 0.0 - 0.4 X10*3/uL [facility] Basophils Absolute Auto 0.0 0.0 - 0.2 X10*3/uL [facility] NRBC Abs Auto 0.000 0.0 - 0.012 X10*3/uL [facility] 04/09/2024 4:29 PM EST 04/09/2024 4:33 PM EST us Generic External Data Provider LAB BLOOD ORDERAB LES Final Result [facility] [address] [place] [phone] documented in this encounter Visit Diagnoses Not on filedocumented in this encounter Additional Health Concerns Assessment Noted Time PHQ-9 Depression Total Score: 16 023 10:50 AM EDT documented as of this encounter Care Teams Ophthalmology Assistant Relationship Specialty Start Date End Date Kelly Hanley MD [address] [place] [address] PCP - General Internal Medicine 07/22/22 documented as of this encounter
--- OUTSIDE RECORDS SUMMARY | 2024-04-09 22:10 | XMS_ITS | Clinical Summary ---
Author Organization [employer] Address [address] [place] [address] 7[address] [place] [address] Care Team Providers Care Grain Mill Products Inspector Name Role Phone Kelly Hanley MD Primary [...] 3 Active Blood Glucose Monitoring Suppl (FreeStyle Ormsby Lite) w/Device kitIndications: Hypoglycemic disorder,Type 2 diabetes mellitus without complication, without long-term current use of insulin (CMS/[facility]) 1 DEVICE IN THE MORNING. 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 -alarm signs and symptoms discussed -Need to [...] changes advised -pd to schedule apt w sales route driver helper-referred at last visit Assessment & Plan (09/05/2022 [...] will do labs -states already f w lead caster and referred today to sales route driver helper ,not taking metformin x 1 year Angioedema 09/05/2022 Assessment & Plan (10/11/2022 6:38 PM EDT): Reports at least 3 times of facial rash and lip swelling w no other symptoms w no clear trigger ,not occurring again -alarm signs and symptoms -continue anthistamines prn -px epipen In case of emergency -referred to management developer -pt to call for apt -has info -if not seen by management developer until next visit will order MISTY,C3-C4 .etc Assessment & Plan (09/05/2022 9:14 PM EDT): Reports at least 3 times of facial rash and lip swelling w no other symptoms w no clear trigger -alarm signs and symptoms -continue anthistamines prn -px epipen In case of emergency -referred today to management developer Schizoaffective disorder 06/01/2021 Postural orthostatic tachycardia syndrome [...] (10/11/2022 6:32 PM EDT): Asthma/COPD -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 operator Assessment & Plan (09/05/2022 9:03 PM EDT): Asthma/COPD -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..] history exists Depression Screening 09/06/2023 09/05/2022, 09/06/19 Dental X-Ray: Bitewings 09/16/2023 09/15/19 23, 12/31/2020, [...] this topic Meningococcal Vaccine Aged Out No arnold tressa eligible based on patient's age to [...] TROPONIN I Routine 04/09/2024 4:29 PM EST HCG, TOTAL, QN Routine 04/09/2024 4:29 PM EST LIPASE Routine 04/09/2024 4:29 PM EST MAGNESIUM Routine 04/09/2024 4:29 PM EST BASIC METABOLIC PANEL Routine 04/09/2024 4:29 PM EST HEPATIC FUNCTION PANEL Routine 4:29 PM EST CBC WITH AUTO DIFFERENTIAL Routine 04/09/2024 4:29 PM EST SARS COV2/INFLUENZA A/B AND RSV RNA QL NAAT Routine 04/09/2024 4:29 PM EST CTA CHEST PE PROTOCAL Routine 04/02/2024 6:19 PM EST SLIDE REVIEW Routine 04/02/2024 4:19 PM EST COMPLETE BLOOD COUNT MAN DIF Routine 04/02/2024 4:19 PM EST BASIC METABOLIC PANEL Routine 04/02/2024 4:19 PM EST CBC WITH AUTO DIFFERENTIAL Routine 04/02/2024 4:19 PM EST XR CHEST 2 VIEWS Routine 04/02/2024 10:5 [...] 09/14/2022 1 1:00 AM EDT Dental calculus INTRAORAL - COMPLETE SERIES OF RADIOGRAPHIC IMAGES Routine 09/14/2022 11:00 AM EDT Localized gingival recession, minimal Impacted teeth Dental calculus PERIODIC ORAL EVALUATION - ESTABLISHED PATIENT Routine 03/19/2019 12:00 AM EST from Last 3 Months or Most Recently Relevant to Health Maintenance Results * XR Chest 2 Views (04/09/2024 6:42 PM EST) Only the most recent of2 resultswithin the time period is included. Anatomical Region Laterality Modality Chest Radiographic Latanya ging 04/09/2024 6:42 PM EST Narrative 04/09/2024 6:43 PM EST ? [facility] ?[address] ?[place] [address] ?XRay Report ? Signed ? Patient: Townsend,Guillermina ?MR#: [id number] ? : 1985 ?Acct:[id number] ? Age/Sex: 38 / F ?ADM Date: 04/09/24 ? Loc: HO.ED ? Attending Dr: ? Ordering Physician: Federica Tate ?? Date of Service: 04/09/24 ?? Procedure(s): XR chest 2V ?? Accession Number(s): [id number] ? cc: Federica Tate; Kelly Hanley MD [...] in OV> ? 04/09/24 1843 ? DD/ 1842 ? TD/TT: 04/09/24 184 ? Medicine Assistant: ? Procedure Note Walkermortezabradleyhilda, Image - 04/09/2024 [place] [address] XRay Report Signed Patient: Guillermina Townsend#: [id number] : 1985Acct:[id number] Age/Sex: 38 / FADM Date: 04/09/24 Loc: HO.ED Attending Dr: Ordering Physician: Federica Tate Date of Service: 04/09/24 Procedure(s): XR chest 2V Accession Number(s): [id number] cc: Federica Tate; Kelly Hanley MD CLINICAL [...] in OV> 04/09/241842 DD/ 41 TD/TT: 04/09/241841 Medicine Assistant: [facility] External Provider IMG XR PROCEDURES Edited Result - Final * High Sensitivity Troponin I (04/09/2024 4:29 PM EST) Pathologist [facility] TROPONIN I HIGH SENSITIVITY <2.7 <3.5 - 17.0 ng/L [facility] Comment:The Castellanos high sens itivity Troponin-I results should beused in conjunction with other diagnostic information suchas ECG, clinical observations and information, and patientsymptoms to aid in the diagnosis of [place]. 04/09/2024 4:29 PM EST 04/09/2024 4:33 PM EST Generic External Data Provider LAB BLOOD ORDERAB LES Final Result Performing Organization Address City/State/[facility] Co de Phone Number [facility] [address] [place] [phone] * (ABNORMAL) SARS-CoV-2 RNA, Influenza A/B, and RSV RNA, Ql NAAT (04/09/2024 4:29 PM EST) Only the most recent of2 resultswithin the time period is included. Pathologist [facility] Influenza A PCR POSITIVE(A) Negative [facility] Influenza B PCR NEGATIVE Negative [facility] Resp Syncy Virus RNA Qual PCR NEGATIVE Negative [facility] SARS COV2 PCR NEGATIVE Negative [facility] Comment:All test results mus t [...] use by authorized laboratories.Testing performed on the HyprKey GeneXpert utilizingreal-time RT-PCR.All SARS CoV2 and positive influenza A/B results arereported to [facility]. 04/09/2024 4:29 PM EST 04/09/2024 4:33 PM EST us Generic External Data Provider LAB MICROBIOLOGY - GENERAL ORDERABLES Final Result [facility] [address] [place] [phone] * (ABNORMAL) CBC auto differential (04/09/2024 4:29 PM EST) Only the most recent of3 resultswithin the time period is included. White Blood Count 7.3 4.8 - 10.8 X10*3/uL [facility] Red Blood Count 5.27 4.20 - 5.50 X10*6/uL [facility] Hemoglobin 15.0 12.0 - 16.0 g/dl [facility] Hematocrit 44.5 37.0 - 47.0 % [facility] Mean Corpuscular Volume 84.4 80.0 - 98.0 fL [facility] Mean Corpuscular Hemoglobin 28.5 27.0 - 33.0 pg [facility] Mean Corpuscular HGB Conc 33.7 31.0 - 35.0 g/dl [facility] Red Cell Distribution Width 13.0 11.0 - 16.0 % [facility] Platelet Count 362 160 - 400 X10*3/uL [facility] Mean Platelet Volume 9.7 9.4 - 12.3 fL [facility] Neutrophils Percent Auto 54.9 45 - 73 % [facility] Imm Gran Pct Auto 0.7(H) 0.0 - 0.4 % [facility] Lymphocytes Percent Auto 33.6 20 - 40 % [facility] Monocytes Percent Auto 10.6 2 - 11 % [facility] Eosinophils Percent Auto 0.1 0 - 4 % [facility] Basophils Percent Auto 0.1 0 - 2 % [facility] NRBC Pct Auto 0.0 0.0 - 0.2 /100WBC [facility] Neutrophils Absolute Auto 4.0 2.0 - 8.3 x10*3/uL [facility] Imm Gran Abs Auto 0.05(H) 0.00 - 0.03 X10*3/uL [facility] Lymphocytes Absolute Auto 2.4 1.2 - 4.9 X10*3/uL [facility] Monocytes Absolute Auto 0.8 0.1 - 1.2 X10*3/uL [facility] Eosinophils Absolute Auto 0.0 0.0 - 0.4 X10*3/uL [facility] Basophils Absolute Auto 0.0 0.0 - 0.2 X10*3/uL [facility] NRBC Abs Auto 0.000 0.0 - 0.012 X10*3/uL [facility] 04/09/2024 4:29 PM EST 04/09/2024 4:33 PM EST us Generic External Data Provider LAB BLOOD ORDERAB LES Final Result [facility] [address] [place] [phone] * hCG, Total, Quantitative (04/09/2024 4:29 PM EST) HCG Quantitative <2 mIU/mL [facility] Comment:Weeks post LMP Appro ximate hCG(Last Menstrual Period) Range (mIU/ml)3 - 4 weeks 9 - 1304 - 5 weeks 75 - 2,6005 - 6 weeks 850 - 20,8006 - 7 weeks 4000 - 100,2007 - 12 weeks 11,500 - 289,24232 - 16 weeks 18,300 - 137,32326 - 29 weeks (2nd trimester) 1,400 - 53,99272 - 41 weeks (3rd trimester) 940 - 60,000The Castellanos B- hCG assay is used for the early detection ofpregnancy; it cannot be used to diagnose any conditionunrelated to . If a B-hCG level is not supportedby the clinical evidence, results should be confirmed by analternative method (qualitative urine hCG, for example). 04/09/2024 4:29 PM EST 04/09/2024 4:33 PM EST Generic External Data Provider LAB BLOOD ORDERAB LES Final Result Performing Organization Address [facility] Co de Phone Number [facility] [address] [place] [phone] * Magnesium (04/09/2024 4:29 PM EST) Magnesium 2.2 1.6 - 2.6 mg/dL [facility] 04/09/2024 4:29 PM EST 04/09/2024 4:33 PM EST Generic External Data Provider LAB BLOOD ORDERAB LES Final Result Performing Organization Address [facility] Co de Phone Number [facility] [address] [place] [phone] * Lipase (04/09/2024 4:29 PM EST) Lipase 23 8 - 78 U/L [facility] 04/09/2024 4:29 PM EST 04/09/2024 4:33 PM EST Generic External Data Provider LAB BLOOD ORDERAB LES Final Result Performing Organization Address [facility] de Phone Number [facility] [address] [place] [phone] * Hepatic Function Panel (04/09/2024 4:29 PM EST) Bilirubin, Total 0.5 0.0 - 1.0 mg/dL [facility] Bilirubin, Direct 0.1 0.0 - 0.5 mg/dL [facility] Aspartate Amino Transferase 23 5 - 31 U/L [facility] Alanine Aminotransferase 23 0 - 31 U/L [facility] Total Protein 7.7 6.5 - 8.0 g/dL [facility] Albumin Level 4.2 3.5 - 5.0 g/dL [facility] Alkaline Phosphatase 56 39 - 117 U/L [facility] 04/09/2024 4:29 PM EST 04/09/2024 4:33 PM EST us Generic External Data Provider LAB BLOOD ORDERAB LES Final Result [facility] [address] [place] [phone] * (ABNORMAL) Basic Metabolic Panel (04/09/2024 4:29 PM EST) Only the most recent of2 resultswithin the time period is included. Sodium 140 135 - 145 mmol/L [facility] Potassium 3.5 3.3 - 5.1 mmol/L [facility] Chloride 103 96 - 108 mmol/L [facility] Carbon Dioxide 29 22 - 29 mmol/L [facility] Anion Gap 12 12 - 20 [facility] Urea Nitrogen (BUN) 8(L) 9 - 16 mg/dL [facility] Creatinine, Serum 0.67 0.5 - 1.4 mg/dL [facility] Creatinine Clr Calc Pharmacy 90.5 [facility] Comment:Provided height and weight: 152.4 cm,55.3 kg.eGFR (calculated from the MDRD study equation) and eCrCl(calculated from the Cockcroft-Gault equation) are based ondifferent parameters and may not yield comparable results.If eCrCl result is absurd, please check patient'sheight/weight. Estimated Glomerular Filt Rate >60 [facility] Comment:Chronic Kidney Disea se: Estimated GFR < 60 mL/min/1.00j5Kslevc Kidney Disease: Estimated GFR < 15 mL/min/1.73m2 Glucose 84 60 - 115 mg/dL [facility] Calcium 8.9 8.4 - 10.2 mg/dL [facility] 04/09/2024 4:29 PM EST 04/09/2024 4:33 PM EST us Generic External Data Provider LAB BLOOD ORDERAB LES Final Result [facility] [address] [place] [phone] * CTA Chest PE Protocal (04/02/2024 6:19 PM EST) Anatomical Region Laterality Modality Body, Chest Computed Tomogra phy 04/02/2024 6:19 PM EST Narrative 04/02/2024 6:20 PM EST ? [facility] ?[address] ?[place] [address] ? CT Scan Report ? Signed ? Patient: Guillermina Townsend ?MR#: [id number] ? : 1985 ?Acct:[id number] ? Age/Sex: 38 / F ?ADM Date: 04/02/24 ? Loc: HO.ED ? Attending Dr: ? Ordering Physician: Domenico Caballero MD ?? Date of Service: 04/02/24 ?? Procedure(s): CT angio chest PE protocol ?? Accession Number(s): [id number] ? cc: Kelly Hanley MD; Domenico Caballero MD ? Report Number: ?? [id number]: Total DLP = ??223.00 mGy-cm ? CLINICAL HISTORY: dyspnea, tachycardia ? CT angiography chest with contrast. 3D Postprocessing. ? Comparison: CT - CTA CHEST WOW RECON [id number] - 12/18/13 17:36 EDT ? Findings: The prior CT report is not available for review. ?? The heart size is normal. RV/LV ratio is normal. ?? Unremarkable thoracic aorta and great vessels. No aneurysm. ?? No acute pulmonary embolus. ?? The visualized thyroid and mediastinum are unremarkable. ? There is opacity of the bilateral lower lobe. ? The upper abdomen is unremarkable. ?? No acute fractures. ? IMPRESSION: ?? No pulmonary emboli. ? Opacity of the bilateral lower lobes could represent atelectatic change or ?? pneumonia. ? This document has been electronically signed by: Moises Wong MD on ?? 04/02/2024 18:19:16 ? Dictated By: ?Moises Wong MD ? Signed By: ?<Electronically signed by Moises Wong MD in OV> ? 04/02/24 1820 ? DD/ 1819 ? TD/TT: 04/02/24 1819 ? Medicine Assistant: ? Procedure Note Donotuseinterpreter, Image - 04/02/[address] [place] [address] [address] Scan Report Signed Patient: Cheryl Townsend#: [id number] : 1985Acct:[id number] Age/Sex: 38 / FADM Date: 04/02/24 Loc: .ED Attending Dr: Ordering Physician: Domenico Caballero MD Date of Service: 04/02/24 Procedure(s): CT angio chest PE protocol Accession Number(s): [id number] cc: Kelly Hanley MD; Domenico Caballero MD Report Number: [id number]: Total DLP = 223.00 mGy-cm CLINICAL HISTORY: dyspnea, tachycardia CT angiography chest with contrast. 3D Postprocessing. Comparison: CT - CTA CHEST WOW RECON [id number] - 12/18/13 17:36 EDT Findings: The prior CT report is not available for review. The heart size is normal. RV/LV ratio is normal. Unremarkable thoracic aorta and great vessels. No aneurysm. No acute pulmonary embolus. The visualized thyroid and mediastinum are unremarkable. There is opacity of the bilateral lower lobe. The upper abdomen is unremarkable. No acute fractures. IMPRESSION: No pulmonary emboli. Opacity of the bilateral lower lobes could represent atelectatic change or pneumonia. This document has been electronically signed by: Moises Wong MD on 04/02/2024 18:19:16 Dictated By: Moises Wong MD Signed By: <Electronically signed by Moises Wong MD in OV> 04/02/24 1820 DD/ 18 TD/TT: 04/02/241818 Medicine Assistant: [facility] External Provider IMG CT PROCEDURES Final Result * Slide Review (04/02/2024 4:19 PM EST) Slide Review MANUAL DIFF [facility] 04/02/2024 4:19 PM EST 04/02/2024 4:22 PM EST Generic External Data Provider LAB BLOOD ORDERAB LES Final Result [facility] [address] [place] [phone] * (ABNORMAL) Complete Blood Count Manual Diff (04/02/2024 4:19 PM EST) White Blood Count 9.0 4.8 - 10.8 X10*3/uL [facility] Red Blood Count 4.22 4.20 - 5.50 X10*6/uL [facility] Hemoglobin 12.2 12.0 - 16.0 g/dl [facility] Hematocrit 36.0(L) 37.0 - 47.0 % [facility] Mean Corpuscular Volume 85.3 80.0 - 98.0 fL [facility] Mean Corpuscular Hemoglobin 28.9 27.0 - 33.0 pg [facility] Mean Corpuscular HGB Conc 33.9 31.0 - 35.0 g/dl [facility] Red Cell Distribution Width 12.7 11.0 - 16.0 % [facility] Platelet Count 271 160 - 400 X10*3/uL [facility] Mean Platelet Volume 10.2 9.4 - 12.3 fL [facility] NRBC Pct Auto 0.0 0.0 - 0.2 /100WBC [facility] NRBC Abs Auto 0.000 0.0 - 0.012 X10*3/uL [facility] Neutrophils % Manual 80(H) 45 - 73 % [facility] Band Neutrophils Percent 17(H) 3 - 5 % [facility] Comment:Results of BANDS claire led to LINDAJO on 04/02/24at 1811 by MUSTAPHA. Lymphocytes Percent Manual 1(L) 20 - 40 % [facility] Monocytes Percent Manual 1(L) 2 - 11 % [facility] Metamyelocytes % (Manual) 1 % [facility] NEUTROPHILS ABSOLUTE MANUAL 8.7(H) 2.0 - 8.3 X10*3/uL [facility] LYMPHOCYTES ABSOLUTE MANUAL 0.1(L) 1.2 - 4.9 X10*3/uL [facility] MONOCYTES ABSOLUTE MANUAL 0.1 0.1 - 1.2 X10*3/uL [facility] Absolute Metamyelocytes 0.1 X10*3/uL [facility] Platelet Estimate NORMAL NORMAL [facility] Platelet Morphology Comment NORMAL [facility] RBC Morphology NORMAL [facility] 04/02/2024 4:19 PM EST 04/02/2024 4:22 PM EST us Generic External Data Provider LAB BLOOD ORDERAB LES Final Result [facility] [address] [place] [address] [phone] * (ABNORMAL) Comprehensive Metabolic Panel (04/02/2024 10:27 AM EST) Sodium 137 135 - 145 mmol/L [facility] Potassium 3.8 3.3 - 5.1 mmol/L [facility] Chloride 109(H) 96 - 108 mmol/L [facility] Carbon Dioxide 19(L) 22 - 29 mmol/L [facility] Anion Gap 13 12 - 20 [facility] Urea Nitrogen (BUN) 8(L) 9 - 16 mg/dL [facility] Creatinine, Serum 0.69 0.5 - 1.4 mg/dL [facility] Creatinine Clr Calc Pharmacy 89.3 [facility] Comment:Provided height and weight: 152.4 cm,57.153 kg.eGFR (calculated from the MDRD study equation) and eCrCl(calculated from the Cockcroft-Gault equation) are based ondifferent parameters and may not yield comparable results.If eCrCl result is absurd, please check patient'sheight/weight. Estimated Glomerular Filt Rate >60 [facility] Comment:Chronic Kidney Disea se: Estimated GFR < 60 mL/min/1.75v6Rqjbos Kidney Disease: Estimated GFR < 15 mL/min/1.73m2 Glucose 105 60 - 115 mg/dL [facility] Calcium 9.2 8.4 - 10.2 mg/dL [facility] Bilirubin, Total 0.2 0.0 - 1.0 mg/dL [facility] Aspartate Amino Transferase 22 5 - 31 U/L [facility] Alanine Aminotransferase 19 0 - 31 U/L [facility] Total Protein 8.1(H) 6.5 - 8.0 g/dL [facility] Albumin Level 4.3 3.5 - 5.0 g/dL [facility] Alkaline Phosphatase 67 39 - 117 U/L [facility] 04/02/2024 10:2 7 AM EST 04/02/2024 10:31 AM EST us Generic External Data Provider LAB BLOOD ORDERAB LES Final Result Performing Organization Address City/[facility]/ZIP Co de Phone Number [facility] [address] [place] [phone] * Hepatitis C Antibody Reflex (10/05/2022 11:32 AM EDT) Hepatitis C Antibody Nonreactive Nonreactive [facility] Comment:Antibodies to HCV no t detected; does not exclude early acuteHCV infection. 10/05/2022 11:3 2 AM EDT 10/05/2022 1:02 PM EDT us Kelly Leyva MD LAB BLOOD ORDERAB LES Final Result [facility] [address] [place] [phone] * HIV Ab/Ag (AQUILES MENDOZA) (10/05/2022 11:32 AM EDT) HIV AB/AG Nonreactive Nonreactive [facility] Comment:HIV-1 p24 Ag and/or HIV-1/HIV-2 Ab not detected.A test result that is nonreactive does not exclude thepossibility of exposure to or infection with HIV-1 and/orHIV-2. Nonreactive results in this assay for individualswith prior exposure to HIV-1 and/or HIV-2 may be due toantigen and antibody levels that are below the limit ofdetection of this assay.The Castellanos Billboard Poster Helper HIV Ag/Ab Combo assay result andsupplemental assay results should be interpreted inconjunction with the patient's clinical presentation,history and other laboratory results. If the results areinconsistent with clinical evidence, additional testing issuggested to confirm the result. 10/05/2022 11:3 2 AM EDT 10/05/2022 1:02 PM EDT us Kelly Leyva MD LAB BLOOD ORDERAB LES Final Result [facility] [address] [place] [phone] * Lipid Panel, Standard (10/05/2022 11:32 AM EDT) Triglycerides 160 mg/dL [facility] Comment:Desirable Triglyceri de: less than 150 mg/dLBorderline High Triglyceride 150-199 mg/dLHigh Triglyceride: 200-499 mg/dLVery High Triglyceride: greater than or equal to 5OO mg/dL Cholesterol 202 mg/dL [facility] Comment:Desirable Cholestero l: less than 200 mg/dLBorderline High Cholesterol: 200-239 mg/dLHigh Cholesterol: greater than 239 mg/dL LDL Cholesterol Calculated 122 mg/dl [facility] Comment:Desirable LDL: less than 100 mg/dLNear Optimal/Above Optimal LDL: 110- 129 mg/dLBorderline High LDL: 130-159 mg/dLHigh LDL: 160-189 mg/dLVery High LDL: greater than or equal to 190 mg/dL HDL Cholesterol 48 mg/dL [facility] Comment:Desirable HDL: great er than 40 mg/dL Note: This HDL assay may give artificially low results in patients with liver disease. Blood Venous blood specimen / Unknown 10/05/2022 11:32 AM EDT 10/05/2022 1:02 PM EDT us Kelly Leyva MD LAB BLOOD ORDERAB LES Final Result [facility] [address] [place] [phone] from Last 3 Months or Most Recently Relevant to Health Maintenance Insurance [facility] - [facility] Care Teams Grain Mill Products Inspector Relationship Specialty Start Date End Date Kelly Hanley MD [address] [place] [phone] PCP - General Internal Medicine 07/22/22
--- OUTSIDE RECORDS SUMMARY | 2024-04-09 22:10 | XMS_ITS | Clinical Summary ---
Author Organization [facility] Address [address] [place] [phone] Phone Care Team Providers Care Studio Operator Name Role Phone Unavailable Primary Care Provider Unavailabl e Social History Tobacco Use Types Packs/Day Years Used Date Smoking Tobacco: Never Assessed Comments Unknown Sex and Gender Information Value Date Recorded Sex Assigned at Not on file Legal Sex Female 12:21 AM EST Gender Identity Not on file Sexual Orientation Not on file Plan of Treatment Health Maintenance Due Date Last Done Comments DTaP,Tdap,and Td Vaccines (1 - Tdap) 09/19/2006 Hepatitis B Vaccines (1 of 3 - [...] on patient's age to complete this topic Insurance [facility] [employer] Member Subscriber Plan / Payer (Ef fective 2013-Present) Name:Guillermina Townsend Relation to Subscriber:Self Name:Guillermina Townsend Payer ID:[id number] Group ID:[id number] Type:Not on file Address: [facility] [address] [phone]
== END 2024-04-09 22:28 | disposition left against medical advice (07) ==
PROVIDERS: Physician Assistant Medical; Emergency Provider Emergency Medicine; PCP Student in an Organized Health Care Education/Training Program
DX: J10.1 Influenza due to other identified influenza virus with other respiratory manifestations (principal); R11.2 Nausea with vomiting, unspecified; R06.02 Shortness of breath; R53.1 Weakness; J45.909 Unspecified asthma, uncomplicated; Z03.818 Encounter for observation for suspected exposure to other biological agents ruled out; Z79.899 Other long term (current) drug therapy
CPT/HCPCS: 0241U; 71046; 80048; 80076; 83690; 83735; 84484; 84702; 85025; 99281; 99283

== ENCOUNTER → 2024-04-09 18:12 | Outpatient (BNV) | payer OTHER, SELFPAY | PROVIDERS: PCP Student in an Organized Health Care Education/Training Program; Visit Provider Radiology Diagnostic Radiology | DX: R05.9 Cough, unspecified (principal) | CPT/HCPCS: 71046 ==

== ENCOUNTER 2024-06-27 13:51 | Outpatient (AMB) | payer OTHER, SELFPAY ==
--- NOTE | 2024-06-27 13:54 | A.OFFVIS_ITS ---
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 Accompanied by: Significant Other Allergies fluconazole [From Diflucan] Allergy (Severe, Verified 04/09/24 15:35) Hives magnesium Allergy (Unknown, Verified 04/09/24 15:35) Chest Pain somatropin [SOMATROPIN] Allergy (Unknown, Verified 04/09/24 15:35) UNKNOWN amitriptyline [AMITRIPTYLINE] Adverse Reaction (Intermediate, Verified 04/09/24 15:35) NAUSEA, DIZZINESS albuterol [ALBUTEROL] Adverse Reaction (Mild, Verified 04/09/24 15:35) TACHYCARDIA esomeprazole [From NEXIUM] Adverse Reaction (Mild, Verified 04/09/24 15:35) TACHYCARDIA Medication List - Last Reconciled 06/27/24 by Mo Swanson NP ascorbic acid (vitamin C) (Vitamin C) 500 mg PO DAILY cefuroxime axetil 250 mg PO BID cetirizine (Zyrtec) 10 mg PO DAILY PRN clonazepam 1 mg PO BID PRN cyclobenzaprine 5 mg PO TID PRN 7 days diphenhydramine HCl (Benadryl) 25 mg PO TID PRN divalproex ER (Depakote ER) 500 mg PO BID fluticasone propion-salmeterol 250-50 mcg/dose (Wixela Inhub) 1 ea PO BID ivabradine (Corlanor) 5 mg PO BID levalbuterol HCl 1.25 mg (3 mL) inhalation Q4H PRN levalbuterol tartrate 45 mcg/actuation 2 puffs PO Q4-6H PRN metoprolol succinate ER 25 mg PO DAILY multivitamin 1 tab PO DAILY omeprazole 40 mg PO DAILY oseltamivir (Tamiflu) 75 mg PO BID 5 days prednisone 50 mg PO DAILY 5 days zolpidem 1 tab PO BEDTIME PRN HPI Comments Details: This is a 38-year-old female patient presenting for a follow-up visit. Patient with a history of NSVT and inappropriate sinus tachycardia. Patient was previously restarted on Corlanor, which she reports was significantly effective in controlling her symptoms. However, over the past few months, patient has not been taking a corner due to issues with prescription refills. She also reports not feeling well over the last couple of months for recovering from a recent flu infection. Since discontinue her Corlanor, she has experienced an increase in SVT episodes and palpitations, which occurs both with exertion and at rest. She remains on metoprolol, which provides partial relief but she feels it is not as effective as Corlanor. She otherwise denies any exertional chest pain, shortness of breath, dizziness, fatigue, orthopnea, PND, leg edema, presyncope, or syncope. [facility] Medical History Acute hypoxemic respiratory failure Asthma with COPD with exacerbation COVID-19 virus infection Inappropriate sinus tachycardia Asthma-COPD overlap syndrome Kidney stones UTI (urinary tract infection) Subclinical hyperthyroidism Inappropriate sinus node tachycardia POTS (postural orthostatic tachycardia syndrome) Asthma with COPD with exacerbation SVT (supraventricular tachycardia) Family history of COPD (chronic obstructive pulmonary disease) Schizoaffective disorder COPD exacerbation Polycystic ovarian disease Diabetes mellitus Fibromyalgia COPD (chronic obstructive pulmonary disease) Carpal tunnel syndrome History of MRSA infection Bipolar 1 disorder Postural orthostatic tachycardia syndrome Surgical History History of renal stent Hx of lithotripsy Tubal ligation status History of tubal ligation Hx of abdominoplasty Family History Other COPD (chronic obstructive pulmonary disease) Social History Household Members: Children Housing: Apartment Do you presently have visiting nurse or other home services: No Alcohol intake: current Alcohol intake frequency: holidays/special occasions only Comment: sleeping Patient Tobacco Use Status: Never used Tobacco Second Hand Smoke Exposure: No service: No Current occupational status: employed Current occupation: [employer] / right hand dominant Review of Systems Const Denies chills, Denies fatigue, Denies fever(s), Denies frequent falls, Denies weakness, Denies weight gain and Denies weight loss ENT Denies dizziness Card Denies chest pain, Denies leg edema, Denies lightheadedness, Denies palpitations, Denies dyspnea and Denies dyspnea on exertion Resp Denies cough, Denies dyspnea and Denies dyspnea on exertion GI Denies hematochezia Musc Denies abnormal gait, Denies muscle weakness, Denies numbness, Denies radiating pain into limb and Denies tingling Neuro Denies abnormal gait, Denies dizziness, Denies frequent falls, Denies numbness, Denies tingling and Denies weakness Endo Denies fatigue and Denies palpitations Physical Exam Vital Signs: Last Vital Signs Pulse 85 06/27/24 13:56 BP 110/72 06/27/24 13:56 BMI result Body Mass Index 25.2 Const General: cooperative, healthy appearing, comfortable and no acute distress Orientation/consciousness: patient oriented x3 HEENT Head: Yes normal to inspection Neck Neck: Yes normal visual inspection, Yes trachea midline and Yes supple Chest Chest palpation & inspection: normal inspection of the chest Resp Effort & Inspection: normal respiratory effort Auscultation: clear to auscultation bilaterally, no crackles, no rales, no rhonchi and no wheezes Cardio Jugular venous distension: no JVD Palpation: normal PMI Rate: regular rate Rhythm: regular rhythm Heart sounds: S1 normal heart sound present, S2 normal heart sound present, no click, no gallops, no murmurs and no rubs Peripheral pulses: Peripheral pulses 2+ throughout GI Inspection: Yes normal to inspection Palpation (GI): Soft to palpation Auscultation: normal bowel sounds Skin General skin exam: no rashes or lesions noted Neuro General: patient oriented x3 Extrem General: Yes normal to inspection, No no pedal edema and No calf tenderness Psych Appearance: grossly normal Mental Status: mental status grossly normal Speech and movement: Normal speech and movement present Office Procedures EKG Details: EKG today showed normal sinus rhythm, rate 85 beats per minute, rightward axis, nonspecific ST-T, [place], [place]. [id number], Complete Assessment & Plan Assessment & Plan (1) SVT (supraventricular tachycardia): Code(s): I47.1 - Supraventricular tachycardia Category: Medical Plan: Patient with a history of SVT and inappropriate sinus tachycardia. Previously responded well to Corlanor but discontinued it due to refill issues, resulting in increased frequency of palpitations. EKG today was normal sinus rhythm. Continue metoprolol therapy but with question regarding dose titration due to underlying asthma. We will restart Corlanor, given her prior positive response. Continue with asthma management- followed by pulmonology. (2) Inappropriate sinus tachycardia: Code(s): R00.0 - Tachycardia, unspecified Category: Medical Plan: As above. Advised heart healthy diet, regular exercise, adequate hydration, complete avoidance of stimulants including caffeinated beverages alcohol, and emphasized stress reduction techniques. We will follow up in 1 year, sooner if needed. In the interim, patient will call the office with any concerns or change in symptoms. This note was generated using voice recognition software. While every effort has been made to ensure accuracy and proper academic coach, there may be occasional errors that could affect the content or meaning of the described symptoms. Orders: Orders AMB EKG-In Office Today I47.1 - Supraventricular tachycardia Medications: Refilled ivabradine (Corlanor) must administer with a meal/food 5 mg PO BID 60 tabs 11RF Coding Level of Care Code Est Pt Level 3 (52888) Complex EM visit Add On G2211 Diagnoses SVT (supraventricular tachycardia) I47.1 Inappropriate sinus tachycardia R00.0 CPT Codes EKG - CPT: 09449-[id number], Complete ([id number]) Time Spent (min) 29 Comment Time spent in reviewing the chart, test results, assessment, counseling and documentation.
[2024-06-27 13:56] VITALS: BP 110/72; PULSE 85; BMI 25.2
--- OUTSIDE RECORDS SUMMARY | 2024-06-27 14:46 | XMS_ITS | Encounter Summary ---
Author Organization [facility] Address [address] [place] [address] Care Team Providers Care Water Supply Technician Name Role Phone Unavailable Primary Care Provider Unavailabl e Encounter Details Date Type Department Care Team (Late st Contact Info) Description 05/09/2024 Lab Requisition [facility] - Main Lab [address] [facility] [place] [address] Belen Menendez MD [address] [place] [address] Urinary tract infection, site not specified Social [...] Name Priority Date/Time Associated Diagnosis Comments URINALYSIS WITH REFLEX MICROSCOPIC AND CULTURE Routine 05/09/2024 12:00 AM EDT Urinary tract infection, site not specified RASMUSSEN URINE CULTURE TUBE Routine 05/09/2024 12:00 AM EDT Urinary tract infection, site not specified VAGINITIS PATHOGENS BY PCR Routine 05/09/2024 12:00 AM EDT Urinary tract infection, site not specified CHLAMYDIA TRACHOMATIS AND NEISSERIA GONORRHOEAE PCR Routine 05/09/2024 12:00 AM EDT Urinary tract infection, site not specified CHLAMYDIA TRACHOMATIS AND NEISSERIA GONORRHOEAE PCR Routine 05/09/2024 12:00 AM EDT Urinary tract infection, site not specified CHLAMYDIA TRACHOMATIS AND NEISSERIA GONORRHOEAE PCR Routine 05/09/2024 12:00 AM EDT Urinary tract infection, site not specified URINALYSIS WITH REFLEX MICROSCOPIC AND CULTURE Routine 05/09/2024 12:00 AM EDT Urinary tract infection, site not specified CULTURE URINE Routine 05/09/2024 12:00 AM EDT Urinary tract infection, site not specified documented in this encounter Results * (ABNORMAL) Vaginitis pathogens molecular study (05/09/2024 12:00 AM EDT) Trichomonas vaginalis Negative Negative 05/10/2024 11:19 AM EDT [facility] Gardnerella vaginalis Positive(A) Negative 05/10/2024 11:19 AM EDT [facility] Analia Species Negative Negative 11:19 AM EDT [facility] Swab Vaginal structure / Unknown 05/09/2024 05/10/2024 8:33 AM EDT Belen Menendez MD LAB MICROBIOLOGY - GENERA L ORDERABLES Final Result [facility] [address] [place] [address], * (ABNORMAL) Culture urine (05/09/2024 12:00 AM EDT) Culture, Urine >100,000 CFU/mL Escherichia coli(A) NERISSA 05/11/2024 9:33 AM EDT [facility] Urine Urine specimen obtained by clean catch procedure / Unknown 05/09/2024 05/09/2024 7:37 PM EDT Narrative Organism Antibiotic Method Susceptibility Escherichia coli Amoxicillin/Clavulanate NERISSA <=2 ug/ml: Susceptible Escherichia coli Ampicillin/Sulbactam NERISSA <=2 ug/ml: Susceptible Escherichia coli Piperacillin/Tazobactam NERISSA <=4 ug/ml: Susceptible Escherichia coli Cefazolin (Urine) NERISSA <=1 ug/ml: Susceptible Escherichia coli Cefoxitin NERISSA <=4 ug/ml: Susceptible Escherichia coli Ceftazidime NERISSA <=0.5 ug/ml: Susceptible Escherichia coli Ceftriaxone NERISSA <=0.25 ug/ml: Susceptible Escherichia coli Cefepime NERISSA <=0.12 ug/ml: Susceptible Escherichia coli Meropenem NERISSA <=0.25 ug/ml: Susceptible Escherichia coli Amikacin NERISSA 4 ug/ml: Susceptible Escherichia coli Gentamicin NERISSA <=1 ug/ml: Susceptible Escherichia coli Ciprofloxacin NERISSA <=0.06 ug/ml: Susceptible Escherichia coli Levofloxacin NERISSA <=0.12 ug/ml: Susceptible Escherichia coli Nitrofurantoin NERISSA <=16 ug/ml: Susceptible Escherichia coli Trimethoprim/Sulfamethoxazole NERISSA <=20 ug/ml: Susceptible us Belen Menendez MD LAB MICROBIOLOGY - GENERA L ORDERABLES Final Result [facility] [address] [place] [address], [place] [phone] * (ABNORMAL) Urinalysis with reflex microscopic and culture (05/09/2024 12:00 AM EDT) Specific Shiro Urine 1.021 1.003 - 1.030 LAB URINALYSIS - AUTOMATED METHOD 05/09/2024 7:37 PM EDT [facility] pH, Urine 7.0 5.0 - 8.0 pH LAB URINALYSIS - AUTOMATED METHOD 05/09/2024 7:37 PM EDT [facility] Leukocytes, Urine Moderate(A) Negative LAB URINALYSIS - AUTOMATED METHOD 05/09/2024 7:37 PM EDT [facility] Nitrite, Urine Positive(A) Negative LAB URINALYSIS - AUTOMATED METHOD 05/09/2024 7:37 PM EDT [facility] Protein, Urine Negative <=Trace mg/dL LAB URINALYSIS - AUTOMATED METHOD 05/09/2024 7:37 PM [facility] Glucose, Urine Negative Negative mg/dL LAB URINALYSIS - AUTOMATED METHOD 05/09/2024 7:37 PM [facility] Ketones, Urine Trace(A) Negative mg/dL LAB URINALYSIS - AUTOMATED METHOD 05/09/2024 7:37 PM [facility] Urobilinogen , Urine 1.0 0.2 - 1.0 mg/dL LAB URINALYSIS - AUTOMATED METHOD 05/09/2024 7:37 PM [facility] Bilirubin, Urine Negative Negative LAB URINALYSIS - AUTOMATED METHOD 05/09/2024 7:37 PM [facility] Blood, Urine Negative Negative LAB URINALYSIS - AUTOMATED METHOD 05/09/2024 7:37 PM [facility] RBC, Urine 4.1(H) 0 - 4 /HPF LAB URINALYSIS - AUTOMATED METHOD 05/09/2024 7:37 PM [facility] WBC, Urine 58.4(H) 0 - 4 /HPF LAB URINALYSIS - AUTOMATED METHOD 05/09/2024 7:37 PM [facility] Squamous Epithelial, Urine 58 0 - 60 /LPF LAB URINALYSIS - AUTOMATED METHOD 05/09/2024 7:37 PM [facility] Bacteria, Urine Many(A) Negative /HPF LAB URINALYSIS - AUTOMATED METHOD 05/09/2024 7:37 PM [facility] Hyaline Casts, Urine 30.9(H) 0 - 3 /LPF LAB URINALYSIS - AUTOMATED METHOD 05/09/2024 7:37 PM [facility] Urine Urine specimen obtained by clean catch procedure / Unknown 05/09/2024 05/09/2024 6:31 PM EDT us Belen Menendez MD LAB URINE ORDERABLES Ktae leon Result [facility] [address] [place] [address], [place] [phone] * Rasmussen urine culture tube (05/09/2024 12:00 AM EDT) Extra Tube Hold for add-ons. 05/09/2024 8:01 PM EDT [facility] Comment:Auto resulted. Urine Urine specimen obtained by clean catch procedure / Unknown 05/09/2024 05/09/2024 6:31 PM EDT Belen Menendez MD LAB URINE ORDERABLES Kate l Result Performing Organization Address [facility] Co de Phone Number [facility] [address] [place] [address], [place] [phone] * Chlamydia trachomatis and Neisseria gonorrhoeae molecular study (05/09/2024 12:00 AM EDT) Pathologist [facility] Neisseria gonorrhoeae PCR Negative Negative LAB MOLECULAR DIAGNOSTICS METHOD 05/10/2024 8:45 AM EDT [facility] Chlamydia trachomatis PCR Negative Negative LAB MOLECULAR DIAGNOSTICS METHOD 05/10/2024 8:45 AM EDT [facility] Swab Rectum structure / Unknown 05/09/2024 05/09/2024 6:31 PM EDT Belen Menendez MD LAB MICROBIOLOGY - GENERA L ORDERABLES Final Result Performing Organization Address [facility]/ZIP Co de Phone Number [facility] [address] [place] [address], [place] [phone] * Chlamydia trachomatis and Neisseria gonorrhoeae molecular study (05/09/2024 12:00 AM EDT) Neisseria gonorrhoeae PCR Negative Negative LAB MOLECULAR DIAGNOSTICS METHOD 05/10/2024 8:45 AM EDT [facility] Chlamydia trachomatis PCR Negative Negative LAB MOLECULAR DIAGNOSTICS METHOD 05/10/2024 8:45 AM EDT [facility] Swab Structure of anterior portion of neck / Unknown 05/09/2024 05/09/2024 6:31 PM EDT us Belen Menendez MD LAB MICROBIOLOGY - GENERA L ORDERABLES Final Result Performing Organization Address City/[facility]/ZIP Co de Phone Number [facility] [address] [place] [address], [place] [phone] * Chlamydia trachomatis and Neisseria gonorrhoeae molecular study (05/09/2024 12:00 AM EDT) Neisseria gonorrhoeae PCR Negative Negative LAB MOLECULAR DIAGNOSTICS METHOD 05/10/2024 9:32 AM EDT [facility] Chlamydia trachomatis PCR Negative Negative LAB MOLECULAR DIAGNOSTICS METHOD 05/10/2024 9:32 AM EDT [facility] Urine Urethral structure / Unknown 05/09/2024 05/09/2024 6:31 PM EDT us Belen Menendez MD LAB MICROBIOLOGY - GENERA L ORDERABLES Final Result Performing Organization Address City/[facility]/ZIP Co de Phone Number [facility] [address] [place] [address], [place] [phone] documented in this encounter Visit Diagnoses Diagnosis Urinary tract infection, site not specified documented in this encounter
--- OUTSIDE RECORDS SUMMARY | 2024-06-27 14:46 | XMS_ITS | Encounter Summary ---
Author Organization [facility] Address [address] [place] [address] Care Team Providers Care Pathology Supervisor Name Role Phone Unavailable Primary Care Provider Unavailabl e Encounter Details Date Type Department Care Team (Late st Contact Info) Description 01/02/2024 Lab Requisition [facility] - Main Lab [address] [facility] [place] [address] Belen Menendez MD [address] [place], [place] [id number] Urinary tract infection, site not specified Social [...] Trichomonas vaginalis Negative Negative 01/04/2024 11:12 AM [facility] Gardnerella vaginalis Positive(A) Negative 01/04/2024 11:12 AM [facility] Analia Species Negative Negative 11:12 AM [facility] Swab Vaginal structure / Unknown 01/02/2024 01/03/2024 1:09 PM EST us Belen Menendez MD LAB MICROBIOLOGY - GENERA L ORDERABLES Final Result [facility] [address] [place] [address], [place] [phone] * (ABNORMAL) Urinalysis microscopic only (01/02/2024 12:00 AM EST) RBC, Urine 4.2(H) 0 - 4 /HPF LAB URINALYSIS - AUTOMATED METHOD 01/02/2024 7:32 PM [facility] WBC, Urine 1.5 0 - 4 /HPF LAB URINALYSIS - AUTOMATED METHOD 01/02/2024 7:32 PM [facility] Squamous Epithelial, Urine 71(H) 0 - 60 /LPF LAB URINALYSIS - AUTOMATED METHOD 01/02/2024 7:32 PM [facility] Bacteria, Urine Negative Negative /HPF LAB URINALYSIS - AUTOMATED METHOD 01/02/2024 7:32 PM [facility] Hyaline Casts, Urine 2.4 0 - 3 /LPF LAB URINALYSIS - AUTOMATED METHOD 01/02/2024 7:32 PM [facility] Urine Urine specimen obtained by clean catch procedure / Unknown 01/02/2024 01/02/2024 6:42 PM EST us Belen Menendez MD LAB URINE ORDERABLES Kate l Result [facility] [address] [place] [address], [place] [phone] * Culture urine (01/02/2024 12:00 AM EST) Culture, Urine No growth 01/04/2024 11:54 AM EST [facility] Urine Urine specimen obtained by clean catch procedure / Unknown 01/02/2024 01/02/2024 6:42 PM EST us Belen Menendez MD LAB MICROBIOLOGY - GENERA L ORDERABLES Final Result [facility] [address] [place] [address], [place] [phone] documented in this encounter Visit Diagnoses Diagnosis Urinary tract infection, site not specified documented in this encounter
--- OUTSIDE RECORDS SUMMARY | 2024-06-27 14:46 | XMS_ITS | Encounter Summary ---
Author Organization [employer] Address [address] [place] [address] [address] [place] [address] Care Team Providers Care Room Cleaner Name Role Phone [facility] Primary Care Provider [phone] Kelly Hanley MD Primary Care Pro vider Encounter Details Date Type Department Care Team (Latest Contact Info) Description 12/31/2020 Abstract [facility] Dental, Provider, DDS Social History Tobacco [...] Upcoming Encounters Date Type Department Care Team ( st Contact Info) Description 07/04/2024 1:15 PM EDT Procedure Visit [facility] [address] [place] [phone] Rula Corley CNM [address] [place] [address] 08/15/2024 1:30 PM EDT Office Visit [facility] [address] [place] [phone] Kelly Hanley MD [address] [place] [address] documented as of this encounter Visit Diagnoses Not on filedocumented in this encounter Care Teams Room Cleaner Relationship Specialty Start Date End Date [employer]INT[employer] INSTRU[employer] [address] [place] [address] PCP - General Family Medicine 10/17/21 07/21/22 Kelly Hanley MD [address] [place] [address] PCP - General Internal Medicine 07/22/22 documented as of this encounter
--- OUTSIDE RECORDS SUMMARY | 2024-06-27 14:46 | XMS_ITS | Clinical Summary ---
Author Organization [facility] Address [address] [place] [address] Phone Care Team Providers Care Safety Instructor Name Role Phone Unavailable Primary Care Provider Unavailabl e Encounters Date Type Department Care Team Description 05/09/2024 Lab Requisition [facility] - Main Lab [address] [facility] [place] [address] Belen Menendez MD Urinary tract [...] HIV Screening 01/23/2022 Hepatitis C Screening 01/23/2022 Medicare Annual Wellness Visit 01/23/2022 Social Influencers of Health Screening 01/23/2022 COVID-19 Vaccine ( - 2023-2 5 season) 2023 Influenza Vaccine (Season Ended) 2024 HIB Vaccines Aged Out No longer eligi [...] age to complete this topic Meningococcal B Vaccine Aged Out No l onger eligible based on patient's age to complete [...] EDT Urinary tract infection, site not specified from Last 3 Months Results * (ABNORMAL) Urinalysis with reflex microscopic and culture (05/09/2024 12:00 AM EDT) Specific [place] Urine 1.021 1.003 - 1.030 LAB URINALYSIS - AUTOMATED METHOD 05/09/2024 7:[address] [facility] pH, Urine 7.0 5.0 - 8.0 pH LAB URINALYSIS - AUTOMATED METHOD 05/09/2024 7:[address] [facility] Leukocytes, Urine Moderate(A) Negative LAB URINALYSIS - AUTOMATED METHOD 05/09/2024 7:[address] [facility] Nitrite, Urine Positive(A) Negative LAB URINALYSIS - AUTOMATED METHOD 05/09/2024 7:[address] [facility] Protein, Urine Negative <=Trace mg/dL LAB URINALYSIS - AUTOMATED METHOD 05/09/2024 7:[address] [facility] Glucose, Urine Negative Negative mg/dL LAB URINALYSIS - AUTOMATED METHOD 05/09/2024 7:[address] [facility] Ketones, Urine Trace(A) Negative mg/dL LAB URINALYSIS - AUTOMATED METHOD 05/09/2024 7:[address] [facility] Urobilinogen , Urine 1.0 0.2 - 1.0 mg/dL LAB URINALYSIS - AUTOMATED METHOD 05/09/2024 7:[address] [facility] Bilirubin, Urine Negative Negative LAB URINALYSIS - AUTOMATED METHOD 05/09/2024 7:[address] [facility] Blood, Urine Negative Negative LAB URINALYSIS - AUTOMATED METHOD 05/09/2024 7:[address] [facility] RBC, Urine 4.1(H) 0 - 4 /HPF LAB URINALYSIS - AUTOMATED METHOD 05/09/2024 7:[address] [facility] WBC, Urine 58.4(H) 0 - 4 /HPF LAB URINALYSIS - AUTOMATED METHOD 05/09/2024 7:[address] [facility] Squamous Epithelial, Urine 58 0 - 60 /LPF LAB URINALYSIS - AUTOMATED METHOD 05/09/2024 7:37 PM EDT [facility] Bacteria, Urine Many(A) Negative /HPF LAB URINALYSIS - AUTOMATED METHOD 05/09/2024 7:37 PM EDT [facility] Hyaline Casts, Urine 30.9(H) 0 - 3 /LPF LAB URINALYSIS - AUTOMATED METHOD 05/09/2024 7:37 PM EDT [facility] Urine Urine specimen obtained by clean catch procedure / Unknown 05/09/2024 05/09/2024 6:31 PM EDT us Belen Menendez MD LAB URINE ORDERABLES Kate l Result Performing Organization Address City/[facility]/ZIP Co de Phone Number [facility] [address] [place] [address], [place] [phone] * Rasmussen urine culture tube (05/09/2024 12:00 AM EDT) Pathologist [facility] Extra Tube Hold for add-ons. 05/09/2024 8:01 PM EDT [facility] Comment:Auto resulted. Urine Urine specimen obtained by clean catch procedure / Unknown 05/09/2024 05/09/2024 6:31 PM EDT us Belen Menendez MD LAB URINE ORDERABLES Kate l Result [facility] [address] [place] [address], [place] [phone] * (ABNORMAL) Vaginitis pathogens molecular study (05/09/2024 12:00 AM EDT) Trichomonas vaginalis Negative Negative 05/10/2024 11:19 AM EDT [facility] Gardnerella vaginalis Positive(A) Negative 05/10/2024 11:19 AM EDT [facility] Analia Species Negative Negative 11:19 AM EDT [facility] Swab Vaginal structure / Unknown 05/09/2024 05/10/2024 8:33 AM EDT us Belen Menendez MD LAB MICROBIOLOGY - GENERA L ORDERABLES Final Result Performing Organization Address [facility]/ZIP Co de Phone Number [facility] [address] [place] [address], [place] [phone] * Chlamydia trachomatis and Neisseria gonorrhoeae molecular study (05/09/2024 12:00 AM EDT) Only the most recent of3 resultswithin the time period is included. Neisseria gonorrhoeae PCR Negative Negative LAB MOLECULAR DIAGNOSTICS METHOD 05/10/2024 8:45 AM EDT [facility] Chlamydia trachomatis PCR Negative Negative LAB MOLECULAR DIAGNOSTICS METHOD 05/10/2024 8:45 AM EDT [facility] Swab Rectum structure / Unknown 05/09/2024 05/09/2024 6:31 PM EDT us Belen Menendez MD LAB MICROBIOLOGY - GENERA L ORDERABLES Final Result Performing Organization Address [facility]/ZIP Co de Phone Number [facility] [address] [place] [address], [place] [phone] * (ABNORMAL) Culture urine (05/09/2024 12:00 AM EDT) Culture, Urine >100,000 CFU/mL Escherichia coli(A) NERISSA 05/11/2024 9:33 AM EDT [facility] Urine Urine specimen [...] MICROBIOLOGY - GENERA L ORDERABLES Final Result [facility] [address] [place] [address], [place] [phone] from Last 3 Months Insurance [employer] MEDICARE Member Subscriber Plan / Payer (Ef fective 2013-Present) Name:Guillermina Townsend Relation to Subscriber:Self Name:Guillermina Townsend Payer ID:[id number] Group ID:[id number] Type:Not on file Address: [address] [facility] [place] [phone]
--- OUTSIDE RECORDS SUMMARY | 2024-06-27 14:46 | XMS_ITS | Encounter Summary ---
Author Organization [employer] Address [address] [place] [address] [address] [place] [address] Care Team Providers Care Orthodontist Small Business Owner Name Role Phone Larned Olney CREW FOREMAN Primary Care Provider [phone] Kelyl Hanley MD Primary Care Pro vider Encounter Details Date Type Department Care Team (Latest Contact Info) Description 02/14/2019 Abstract [facility] CONVERSIONS Dental, Provider, DDS Social History [...] Description 07/04/2024 1:15 PM EDT Procedure Visit [facility]ICINE [address] [place] [phone] Rula Corley CNM [address] [place] [phone] 08/15/2024 1:30 PM EDT Office Visit [facility] [address] [place] [phone] Kelly Hanley MD [address] [place] [address] documented as of this encounter Visit Diagnoses Not on filedocumented in this encounter Care Teams Orthodontist Small Business Owner Relationship Specialty Start Date End Date LarnedGinger CREW FOREMAN [address] [place] [address] PCP - General Family Medicine 10/17/21 07/21/22 Kelly Hanley MD [address] [place] [address] PCP - General Internal Medicine 07/22/22 documented as of this encounter
--- OUTSIDE RECORDS SUMMARY | 2024-06-27 14:46 | XMS_ITS | Referral Summary ---
Author Organization [facility] Address [address] [place] [address] Care Team Providers Care System Programmer Name Role Phone Jayda Hanson Primary Care Provider [phone] Medications ibuprofen (MOTRIN) 600 mg tablet Take [...] Plan of Treatment Not on file Insurance [facility] Care Teams System Programmer Relationship Specialty Start Date End Date Jayda Hanson [address] [place] [address] PCP - General 09/08/16
--- OUTSIDE RECORDS SUMMARY | 2024-06-27 14:46 | XMS_ITS | Data Portability ---
Author Organization [email or web address] Address [address] [place] [phone] Care Team Providers Care Weather Stripper Name Role Phone [facility] Referring Provider [facility] Referring Provider Assessment Encounter Date Assessment Date Assessment LastModified by Organization Details LastModified Time 06/15/2021 06/15/2021 I have reviewed and agree with the assessment and plan as documented by the pl sql programmer. I provided real-time medical direction for this [...] Appointments None recorded. Lab None recorded. Referral water pipe installer referral 2021 022 [email or web address] Not available 09:24:52 Procedures None recorded. Surgeries None recorded. Imaging None recorded. Medication Orders None recorded. Patient TargetsNo targets recorded. Patient InstructionsNo instructions recorded. Reason for Referral Automotive Center Manager Referral for Pain of toe of left [...] Note 1189 Giacomo Madrid MD Main - [address] [phone] 06/15/2021 15:47:01 10/22/2021 15:00:32 Pain of toe of left foot [id number] M79.675 Health Concerns Section Related Observation LastModified by Organization Detai ls LastModified Time None Recorded Concern Status LastModified by Organization Details LastModified Time None Recorded Advance Directives Directive None Recorded Payers Insurance Date Sequence Insurance Name Policy Number Policy Castellano Covered Member ID Castellano Member ID Guarantor Name 04/16/2023 1 [facility] - DOS PRIOR TO 2022 - DUAL ELIGIBLE (MEDICARE REPLACEMENT/ADV ANTAGE - HMO) Guillermina Townsend [id number] Guillermina Townsend 04/16/2023 1 [facility] [employer] - DOS ON OR AFTER 2022 - DUAL ELIGIBLE - [facility] OPTIONS AND ONE CARE (MEDICARE REPLACEMENT/ADV ANTAGE - HMO) Guillermina Townsend [id number] Guillermina Townsend Notes Date Note Type Note [...] ................... ................... ................... ................... ................... ................... ............. Doctor Of Veterinary Medicine Note: Patient is a 35 year old [...] June. No further complaints. Photos uploaded to [employer] nadine for viewing. Vital signs obtained and all within normal limits, Red flags discussed. Consulted with Dr. Madrid. Patient is to follow up with PCP/care team regarding her signs, symptoms and todays visit. Patient to elevate left foot when resting and sleeping. Avoid uncomfortable shoes for a couple of weeks. Monitor health and toe for any changes. Contact [employer] for re-visit if symptoms persist. Contact 911 for any discussed red flags or other emergencies. ................... ................... ................... ................... ................... ................... ................... ........ Disposition: Fulfilled Giacomo Madrid MD [address] [place] [address],[address], [place], [address], [employer] 06/15/2021 16:24:13 OBGyn Episode No OBEpisode recorded.
--- OUTSIDE RECORDS SUMMARY | 2024-06-27 14:46 | XMS_ITS | Clinical Summary ---
Author Organization [facility] Address [address] [place] [address] Care Team Providers Care Malware Analyst Name Role Phone Jayda Hanson Primary Care Provider [phone]- [phone] Medications ibuprofen (MOTRIN) 600 mg tablet Take [...] - 2023-2 5 season) 2023 12/04/2020, 11/12/2020 Basic Metabolic Panel 01/09/2024 01/08/2023 , 01/06/2023, 10/05/2022 Alcohol/Substance Use Screening 02/21/2024 Depression Screening and Follow-Up 02/21/2024 Social Drivers of Health Linsey ual Screening 02/21/2024 Influenza Vaccine (Season Ended) 2024 10/22/2021, 12/01/2020, 01/10/2019, Additional history exists DTaP,Tdap,and Td Vaccines (3 - Td or Tdap) 12/16/2030 12/16/2020, 02/13/2016, 03/19/2009 RSV Vaccine (60+ years old a nd patients) (1 - 1-dose 75+ series) 09/19/2062 Insurance [facility] [address] [place] [id number] Care Teams Malware Analyst Relationship Specialty Start Date End Date Jayda Hanson [address] [place] [address] PCP - General 09/08/16
--- OUTSIDE RECORDS SUMMARY | 2024-06-27 14:46 | XMS_ITS | Clinical Summary ---
Author Organization [email or web address] Address [address] [place] [address] [address] [place] [address] Care Team Providers Care Scrap Shear Operator Name Role Phone Kelly Hanley MD Primary [...] than 2-3 times per week for migraines. 06/02/19 22 Active clonazePAM (KlonoPIN) 1 MG tablet Take 1 mg by mouth if needed in the morning and at bedtime. Q 6 hours PRN w psychiatrist 08/10/19 23 Active divalproex (Depakote ER) 500 MG 24 hr tablet Take 1 tablet by mouth 2 times daily. Active Wixela Inhub 250-50 MCG/ACT aerosol powder 09/03/19 23 Active lurasidone (Latuda) 80 MG tablet TAKE 1 TABLET BY MOUTH EVERY EVENING TAKE WITH FOOD. Active metoclopramide (Reglan) 5 MG tablet Take 5 mg by mouth if needed in the morning, at noon, and at bedtime. 12/31/19 22 Active metoprolol succinate XL (Toprol-XL) 25 MG 24 hr tablet TAKE 1/2 TAB BY MOUTH EVERY DAY 06/05/19 23 Active OLANZapine (ZyPREXA) 10 MG tablet Take 1 tablet by mouth at bedtime. 06/23/20 23 Active zolpidem (Ambien) 10 MG tablet Take 1 tablet by mouth if needed at bedtime. Active EPINEPHrine (Epipen) 0.3 MG/0.3ML injection syringe Inject 0.3 mL (0.3 mg) as directed 1 (one) time if needed for anaphylaxis for up to 1 dose. Inject into upper leg. Call 911 after use. 1 each 1 09/06/19 Active diphenhydrAMIN E (BENADryl) 25 MG tablet Take 1 tablet (25 mg) by mouth every 6 (six) hours if needed for itching or allergies. 30 tablet 1 09/06/19 Active Alcohol Swabs 70 % pads 1 Units in the morning. 100 each 09/06/19 Active glucose 4 g chewable tabletIndicati ons:Hypoglycem ic disorder Chew 4 tablets (16 g) if needed for low blood sugar. 50 tablet 2 10/11/19 Active Blood Glucose Monitoring Suppl (FreeStyle [place] Lite) w/Device kitIndications :Hypoglycemic disorder,Type 2 diabetes mellitus without complication, without long-term current use of insulin ([facility]) 1 DEVICE IN THE MORNING. 1 kit 10/11/19 Active FreeStyle lancetsIndicat ions:Hypoglyce dori disorder,Type 2 diabetes mellitus without complication, without long-term current use of insulin (CMS/HCC) 1 each by Other route in the morning. Use bid, dx type 2 diabetes 100 each 10/11/19 Active hydrocortisone 1 % cream Apply topically 2 times daily. 1.5 g 10/11/19 Active glucose blood (OneTouch Ultra) test stripIndicatio ns:Hypoglycemi c disorder,Type 2 diabetes mellitus without complication, without long-term current use of insulin (CMS/HCC) USE TO TEST BLOOD SUGAR TWICE A DAY 100 each 3 10/12/19 Active Blood Glucose Monitoring Suppl (ONE TOUCH ULTRA 2) w/Device kit USE TO TEST BLOOD SUGAR TWICE A DAY 1 kit 10/12/19 Active OneTouch Delica Lancets 33G misc USE TO TEST BLOOD SUGAR TWICE A DAY 100 each 3 10/12/19 Active Diclofenac Sodium 1 % gelIndications :Mid back pain on right side Apply to the affected area up to 4x/day as needed 50 g 1 04/17/19 24 Active levalbuterol (Xopenex) 1.25 MG/0.5ML nebulizer solution Take 0.5 mL (1.25 mg) by nebulization every 8 (eight) hours if needed for wheezing. USE 1.25 MG (0.5 ML) INHALATION EVERY 4 HOURS WHILE AWAKE 30 each 3 08/17/19 24 Active levalbuterol (Xopenex) 45 MCG/ACT inhaler Inhale 2 puffs every 4 (four) hours if needed for wheezing. 15 g 3 08/17/19 24 Active Spacer/Aero-Ho lding Chambers (OptiChamber [place]) misc 1 each every 4 (four) hours if needed (asthma). 1 each 08/17/19 24 Active buPROPion XL (Wellbutrin XL) 300 MG 24 hr tablet TAKE 1 TABLET BY MOUTH EVERY MORNING TAKE WITH THE 150 MG TABLET. Active Corlanor 5 MG tablet Take 1 tablet by mouth. Active cholecalcifero l (Vitamin D-3) 25 MCG (1000 UT) tablet Take 1 tablet (25 mcg) by mouth in the morning. 90 tablet 1 10/11/19 23 025 Discontinu ed(Other) triamcinolone (Kenalog) 0.1 % ointment Apply topically 2 times daily for 7 days. 15 g 06/05/19 025 Active Problems Problem Noted Date Diagnosed Date Type 2 diabetes mellitus wit hout complication, without long-term current use of insulin 06/04/2024 Breast pain 06/04/2024 Family history of cancer 06/04/2024 Hypoglycemia 10/11/2022 Assessment & Plan (10/11/2022 6:57 [...] workup is done -referred back to her assembler handbags -alarm signs and symptoms discussed -Need to [...] valvular pathology seen on this study. -continue Assessment & Plan (09/05/2022 9:04 PM EDT): [...] changes advised -pd to schedule apt w finance lecturer-referred at last visit Assessment & Plan (09/05/2022 [...] will do labs -states already f w insole tacker and referred today to finance lecturer ,not taking metformin x 1 year Angioedema 09/05/2022 Assessment & Plan (10/11/2022 6:38 PM EDT): Reports at least 3 times of facial rash and lip swelling w no other symptoms w no clear trigger ,not occurring again -alarm signs and symptoms -continue anthistamines prn -px epipen In case of emergency -referred to hot mill operator -pt to call for apt -has info -if not seen by hot mill operator until next visit will order MISTY,C3-C4 .etc Assessment & Plan (09/05/2022 9:14 PM EDT): Reports at least 3 times of facial rash and lip swelling w no other symptoms w no clear trigger -alarm signs and symptoms -continue anthistamines prn -px epipen In case of emergency -referred today to hot mill operator Schizoaffective disorder 06/01/2021 Postural orthostatic tachycardia syndrome [...] (10/11/2022 6:32 PM EDT): Asthma/COPD -f w landscape laborer Assessment & Plan (09/05/2022 9:03 PM EDT): Asthma/COPD -f w landscape laborer Cervical incompetence 08/10/2011 Migraine 08/10/2011 Polycystic ovaries 08/19/2009 Resolved Problems Problem Noted Date Diagnosed Date Resolved Date Mood disorder 11/27/2017 09/05/2022 Encounters Date Type Department Care Team Description 06/05/[address] [facility] [address] [place] [phone] Kelly Hanley MD Care Coordination 06/04/2024 1:30 PM EDT Office Visit [facility] [address] [place] [phone] Kelly Hanley MD Family history of malignant neoplasm (Primary Dx); Breast pain; Annual physical exam; Hypoglycemia; Dietary counseling; Exercise counseling; Type 2 diabetes mellitus without complication, without long-term current use of insulin ([facility]); Schizoaffective disorder, bipolar type ([facility]/HCC); Asthma-COPD overlap syndrome ([facility]/HCC); SVT (supraventricular tachycardia) ([facility]); Health care maintenance; Angioedema, initial encounter; Family history of cancer 06/04/2024 Travel 05/27/[address] [facility] [address] [place] [phone] Kelly Hanley MD chart prep 05/21/2024 Patient Outreach [facility] [address] [place] [address] Kelly Hanley MD Pre-visit Planning (SDOH Screening negative and Tobacco screening negative) 04/09/2024 Orders Only GENERIC EXTERNAL DATA DEPARTMENT [...] Answer Date Recorded Patient Health Questionnaire-9 Score 14 06/04/2024 Patient Health Questionnaire-9 Score 14 06/04/2024 Last PHQ-9: Questionnaire Data Not on file 0 06/04/2024 Housing Stability Answer Date Recorded What is your housing situation today? I have hannah sing 05/21/[address] you li ve. Do you have problems with any of the following? None of the above 05/21/2024 Food Insecurity Answer Date Recorded Within the past 12 months, y ou worried that your food would run out before you got money to buy more: Never True 05/21/2024 Within the past 12 months,th e food you bought just didn't last and you didn't have enough money to get more: Never True 02/2024 Transportation Answer Date Recorded In the past 12 months, has l ack of transportation kept you from medical appts, meetings, work or from getting things needed for daily living? No 05/21/2024 Utilities Answer Date Recorded In the past 12 months, has t he electric, gas, oil or water company threatened to shut off services in your home? No 05/21/2024 Depression Answer Date Recorded Patient Health Questionnaire-2 Score 3 06/04/2024 Internet Access Answer Date Recorded Internet Access Q1 Yes 05/21/2024 Internet Access Q2 Not on file 05/21/2024 Comments Unknown Sex and Gender Information Value Date Recorded Sex Assigned at Female 12/20/2021 10:19 AM EDT Legal Sex Female 10:19 AM EDT Gender Identity Female 12/20/2021 10:19 AM EDT Sexual Orientation Straight 12/20/2021 10 :19 AM EDT Last Filed Vital Signs Vital Sign Reading Time Taken Comments Blood Pressure 121/81 06/04/2024 1:35 PM EDT Pulse 76 06/04/2024 1:35 PM EDT Temperature 36.4 ??C (97.5 ??F) 06/04/2024 1:35 PM ED T Respiratory Rate 20 06/04/2024 1:35 PM EDT Oxygen Saturation 100% 06/04/2024 1:35 PM EDT Inhaled Oxygen Concentration - - Weight 58.2 kg (128 lb 3.2 oz) 06/04/2024 1:35 P M EDT Height 152.4 cm (5') 06/04/2024 1:35 PM EDT Body Mass Index 25.04 06/04/2024 1:35 PM EDT Plan of Treatment Upcoming Encounters Date Type Department Care Team (Late st Contact Info) Description 07/04/2024 1:15 PM EDT Procedure Visit [facility] [address] [place] [address] [phone] Rula Corley, MARY KATE [address] [place], [place] [phone] 08/15/2024 1:30 PM EDT Office Visit [facility] [address] [place] [address] [phone] Kelly Hanley MD [address] [place], [place] [phone] Health Maintenance Due Date Last Done Comments Diabetes: Foot Exam 09/19/1997 Eye Exam 09/19/1997 Family Planning (PISQ) 09/19/2002 Hepatitis B Vaccines [...] 09/18/2019 03/19/2019, , 11/14/2017, Additional history exists Dental Prophylaxis 03/18/2023 09/14/2022, 1 03/02/2020, 02/14/2019, Additional history exists Diabetes: Hemoglobin A1C 04/07/2023 10/05/2022 Dental X-Ray: Bitewings 09/16/2023 09/15/19 23, 12/31/2020, 03/19/2019, Additional history exists Diabetes: Urine Protein Screening 10/06/2023 10/05/2022 Lipid Panel 10/06/2023 10/05/2022 COVID-19 Vaccine ( season) 2023 12/04/2020, 11/12/2020 Influenza Vaccine (#1) 2023 2, 12/01/2020, 01/10/2019, Additional history exists SDOH Screening 05/21/2025 05/21/2024 Alcohol/Substance Use Screening 06/04/2025 06/04/2024 Depression Screening 06/04/2025 06/04/2024, 06/05/19 25 Tobacco Screening 06/04/2025 06/04/2024 Dental X-Ray: Full Mouth 09/15/2025 023, 10/31/2014, 09/29/2011 DTaP/Tdap/Td Vaccines (2 - Td or Tdap) [...] Procedure Name Priority Date/Time Associated Diagnosis Comments AMB REFERRAL TO GENETICS Routine 06/07/2024 Family history of malignant neoplasm POCT , URINE Routine 06/04/2024 2:29 PM EDT Breast pain XR CHEST 2 VIEWS Routine 04/09/2024 6:42 [...] QL NAAT Routine 04/02/2024 10:27 AM EST ALBUMIN, RANDOM URINE W/CREATININE Routine 10/05/2022 2:36 PM EDT Health care maintenance HEPATITIS C ANTIBODY REFLEX Routine 10/05/2022 11:32 AM EDT HIV ANTIBODY/ANTIGEN ([place] DPH) Routine 10/05/2022 11:32 AM EDT HEMOGLOBIN A1C Routine 10/05/2022 11:32 AM EDT Health care maintenance LIPID PANEL, STANDARD Routine 10/05/2022 11:32 AM [...] Recently Relevant to Health Maintenance Results * Referral to Genetics (06/07/2024) Kelly Leyva MD OUTPATIENT REFERR AL ORDERABLES Final Result * POCT Urine (06/04/2024 2:29 PM EDT) Preg Test, Ur Negative Negative, Indeterminate, None Detected, Invalid, Specimen unsatisfactory for evaluation, Weakly Positive QC Media Lot # [id number] Lot# Expiration Date [id number] Urine 06/04/2024 2:29 PM EDT us Kelly Leyva MD POINT OF CARE JACIEL T ENTER/EDIT ORDERABLES Final Result * XR Chest 2 Views (04/09/2024 6:42 PM EST) Only the most recent of2 resultswithin the time period is included. Anatomical Region Laterality Modality Chest Radiographic Latanya ging 04/09/2024 6:42 PM EST Narrative 04/09/2024 6:43 PM EST ? [facility] ?[address] ?[place] [address] ?XRay Report ? Signed ? Patient: Townsend,Guillermina ?MR#: [id number] ? : 1985 ?Acct:[id number] ? Age/Sex: 38 / F ?ADM Date: 02/18/25 ? Loc: HO.ED ? Attending Dr: ? Ordering Physician: Federica Tate ?? Date of Service: 04/09/24 ?? Procedure(s): XR chest 2V ?? Accession Number(s): [id number] ? cc: Federica Tate; Kelly Hanley MD [...] ? DD/ 41 ? TD/TT: 04/09/241841 ? Oral Surgery Technician: ? Procedure Note Bridger, Image - 04/09/2024 [place] [address] XRay Report Signed Patient: Cheryl Townsend#: [id number] : 1985Acct:[id number] Age/Sex: 38 / FADM Date: 04/09/24 Loc: HO.ED Attending Dr: Ordering Physician: Federica Tate Date of Service: 04/09/24 Procedure(s): XR chest 2V Accession Number(s): [id number] cc: Federica Tate; Kelly Hanley MD CLINICAL [...] in OV> 04/09/241842 DD/ 41 TD/TT: 04/09/241841 Oral Surgery Technician: [facility] External Provider IMG XR PROCEDURES Edited Result - Final * High Sensitivity Troponin I (04/09/2024 4:29 PM EST) TROPONIN I HIGH SENSITIVITY <2.7 <3.5 - 17.0 ng/L [facility] Comment:The Castellanos high sens itivity Troponin-I results should beused in conjunction with other diagnostic information suchas ECG, clinical observations and information, and patientsymptoms to aid in the diagnosis of NV. 04/09/2024 4:29 PM EST 04/09/2024 4:33 PM EST us Generic External Data Provider LAB BLOOD ORDERAB LES Final Result [facility] [address] [place] [phone] * (ABNORMAL) SARS-CoV-2 RNA, Influenza A/B, and RSV RNA, Ql NAAT (04/09/2024 4:29 PM EST) Only the most recent of2 resultswithin the time period is included. Pathologist [facility] Influenza A PCR POSITIVE(A) Negative [facility] Influenza B PCR NEGATIVE Negative [facility] Resp Syncy Virus RNA Qual PCR NEGATIVE Negative [facility] SARS COV2 PCR NEGATIVE Negative [facility] Comment:All test results mus t be [...] use by authorized laboratories.Testing performed on the [employer] GeneXpert utilizingreal-time RT-PCR.All SARS CoV2 and positive influenza A/B results arereported to [facility]. 04/09/2024 4:29 PM EST 04/09/2024 4:33 PM EST us Generic External Data Provider LAB MICROBIOLOGY - GENERAL ORDERABLES Final Result [facility] [address] [place], [place] [phone] * (ABNORMAL) CBC auto differential (04/09/2024 4:29 PM EST) Only the most recent of3 resultswithin the time period is included. White Blood Count 7.3 4.8 - 10.8 X10*3/uL [facility] Red Blood Count 5.27 4.20 - 5.50 X10*6/uL [facility] Hemoglobin 15.0 12.0 - 16.0 g/dl [facility] Hematocrit 44.5 37.0 - 47.0 % [facility] Mean Corpuscular Volume 84.4 80.0 - 98.0 fL [facility] Mean Corpuscular Hemoglobin 28.5 27.0 - 33.0 pg [facility] Mean Corpuscular HGB Conc 33.7 31.0 - 35.0 g/dl [facility] Red Cell Distribution Width 13.0 11.0 - 16.0 % [facility] Platelet Count 362 160 - 400 X10*3/uL [facility] Mean Platelet Volume 9.7 9.4 - 12.3 fL [facility] Neutrophils Percent Auto 54.9 45 - 73 % [facility] Imm Gran Pct Auto 0.7(H) 0.0 - 0.4 % [facility] Lymphocytes Percent Auto 33.6 20 - 40 % [facility] Monocytes Percent Auto 10.6 2 - 11 % [facility] Eosinophils Percent Auto 0.1 0 - 4 % [facility] Basophils Percent Auto 0.1 0 - 2 % [facility] NRBC Pct Auto 0.0 0.0 - 0.2 /100WBC [facility] Neutrophils Absolute Auto 4.0 2.0 - 8.3 x10*3/uL [facility] Imm Gran Abs Auto 0.05(H) 0.00 - 0.03 X10*3/uL [facility] Lymphocytes Absolute Auto 2.4 1.2 - 4.9 X10*3/uL [facility] Monocytes Absolute Auto 0.8 0.1 - 1.2 X10*3/uL [facility] Eosinophils Absolute Auto 0.0 0.0 - 0.4 X10*3/uL [facility] Basophils Absolute Auto 0.0 0.0 - 0.2 X10*3/uL [facility] NRBC Abs Auto 0.000 0.0 - 0.012 X10*3/uL [facility] 04/09/2024 4:29 PM EST 04/09/2024 4:33 PM EST us Generic External Data Provider LAB BLOOD ORDERAB LES Final Result Performing Organization Address [facility]/ZIP Co de Phone Number [facility] [address] [place] [phone] * hCG, Total, Quantitative (04/09/2024 4:29 PM EST) HCG Quantitative <2 mIU/mL [facility] Comment:Weeks post LMP Appro ximate hCG(Last Menstrual Period) Range (mIU/ml)3 - 4 weeks 9 - 1304 - 5 weeks 75 - 2,6005 - 6 weeks 850 - 20,8006 - 7 weeks 4000 - 100,2007 - 12 weeks 11,500 - 289,45947 - 16 weeks 18,300 - 137,89809 - 29 weeks (2nd trimester) 1,400 - 53,27254 - 41 weeks (3rd trimester) 940 - [...] Provider LAB BLOOD ORDERAB LES Final Result [facility] [address] [place] [address] [phone] * Magnesium (04/09/2024 4:29 PM EST) Pathologist [facility] Magnesium 2.2 1.6 - 2.6 mg/dL [facility] 04/09/2024 4:29 PM EST 04/09/2024 4:33 PM EST Generic External Data Provider LAB BLOOD ORDERAB LES Final Result Performing Organization Address [facility] Co de Phone Number [facility] [address] [place] [phone] * Lipase (04/09/2024 4:29 PM EST) Pathologist [facility] Lipase 23 8 - 78 U/L [facility] 04/09/2024 4:29 PM EST 04/09/2024 4:33 PM EST Generic External Data Provider LAB BLOOD ORDERAB LES Final Result Performing Organization Address [facility] de Phone Number [facility] [address] [place] [phone] * Hepatic Function Panel (04/09/2024 4:29 PM EST) Pathologist [facility] Bilirubin, Total 0.5 0.0 - 1.0 mg/dL [facility] Bilirubin, Direct 0.1 0.0 - 0.5 mg/dL [facility] Aspartate Amino Transferase 23 5 - 31 U/L [facility] Alanine Aminotransferase 23 0 - 31 U/L [facility] Total Protein 7.7 6.5 - 8.0 g/dL [facility] Albumin Level 4.2 3.5 - 5.0 g/dL [facility] Alkaline Phosphatase 56 39 - 117 U/L [facility] 04/09/2024 4:29 PM EST 04/09/2024 4:33 PM EST us Generic External Data Provider LAB BLOOD ORDERAB LES Final Result Performing Organization Address [facility]/ZIP Co de Phone Number [facility] [address] [place] [phone] * (ABNORMAL) Basic Metabolic Panel (04/09/2024 4:29 PM EST) Only the most recent of2 resultswithin the time period is included. Sodium 140 135 - 145 mmol/L [facility] Potassium 3.5 3.3 - 5.1 mmol/L [facility] Chloride 103 96 - 108 mmol/L [facility] Carbon Dioxide 29 22 - 29 mmol/L [facility] Anion Gap 12 12 - 20 [facility] Urea Nitrogen (BUN) 8(L) 9 - 16 mg/dL [facility] Creatinine, Serum 0.67 0.5 - 1.4 mg/dL [facility] Creatinine Clr Calc Pharmacy 90.5 [facility] Comment:Provided height and weight: 152.4 cm,55.3 kg.eGFR (calculated from the MDRD study equation) and eCrCl(calculated from the Cockcroft-Gault equation) are based ondifferent parameters and may not yield comparable results.If eCrCl result is absurd, please check patient'sheight/weight. Estimated Glomerular Filt Rate >60 [facility] Comment:Chronic Kidney Disea se: Estimated GFR < 60 mL/min/1.60w2Qpcxzc Kidney Disease: Estimated GFR < 15 mL/min/1.73m2 Glucose 84 60 - 115 mg/dL [facility] Calcium 8.9 8.4 - 10.2 mg/dL [facility] 04/09/2024 4:29 PM EST 04/09/2024 4:33 PM EST us Generic External Data Provider LAB BLOOD ORDERAB LES Final Result Performing Organization Address City/[facility]/ZIP Co de Phone Number [facility] [address] [place] [phone] * CTA Chest PE Protocal (04/02/2024 6:19 PM EST) Anatomical Region Laterality Modality Body, Chest Computed Tomogra phy 04/02/2024 6:19 PM EST Narrative 04/02/2024 6:20 PM EST ? [facility] ?[address] ?[place] [address] ? CT Scan Report ? Signed ? Patient: Townsend,Guillermina ?MR#: [id number] ? : 1985 ?Acct:[id number] ? Age/Sex: 38 / F ?ADM Date: 04/02/24 ? Loc: HO.ED ? Attending Dr: ? Ordering Physician: Domenico Caballero MD ?? Date of Service: 04/02/24 ?? Procedure(s): CT angio chest PE protocol ?? Accession Number(s): [id number] ? cc: Kelly Hanley MD; Domenico Caballero MD ? Report Number: ?? [id number]: Total DLP = ??223.00 mGy-cm ? CLINICAL HISTORY: dyspnea, tachycardia ? CT angiography chest with contrast. 3D Postprocessing. ? Comparison: CT - CTA CHEST WOW RECON [id number] - 12/18/13 17:36 EDT ? Findings: The [...] This document has been electronically signed by: Mosies Wong MD on ?? 04/02/2024 18:19:16 ? Dictated By: ?Moises Wong MD ? Signed By: ?<Electronically signed by Moises Wong MD in OV> ? 04/02/24 1820 ? DD/ ? TD/TT: 04/02/24 1819 ? Oral Surgery Technician: ? Procedure Note Donotuseinterpreter, Image - 04/02/[address] [address] [address] Scan Report Signed Patient: Cheryl Townsend#: [id number] : 1985Acct:[id number] Age/Sex: 38 / FADM Date: 04/02/24 Loc: .ED Attending Dr: Ordering Physician: Domenico Caballero MD Date of Service: 04/02/24 Procedure(s): CT angio chest PE protocol Accession Number(s): [id number] cc: Kelly Hanley MD; Domenico Caballero MD Report Number: [id number]: Total DLP = 223.00 mGy-cm CLINICAL HISTORY: dyspnea, tachycardia CT angiography chest with contrast. 3D Postprocessing. Comparison: CT - CTA CHEST WOW RECON [id number] - 12/18/13 17:36 EDT Findings: The prior [...] Wong MD in OV> 04/02/24 1820 DD/ 1819 TD/TT: 04/02/24 1819 Oral Surgery Technician: [facility] External Provider IMG CT PROCEDURES Final Result * Slide Review (04/02/2024 4:19 PM EST) Slide Review MANUAL DIFF [facility] 04/02/2024 4:19 PM EST 04/02/2024 4:22 PM EST us Generic External Data Provider LAB BLOOD ORDERAB LES Final Result [facility] [address], [place] [phone] * (ABNORMAL) Complete Blood Count Manual Diff (04/02/2024 4:19 PM EST) White Blood Count 9.0 4.8 - 10.8 X10*3/uL [facility] Red Blood Count 4.22 4.20 - 5.50 X10*6/uL [facility] Hemoglobin 12.2 12.0 - 16.0 g/dl [facility] Hematocrit 36.0(L) 37.0 - 47.0 % [facility] Mean Corpuscular Volume 85.3 80.0 - 98.0 fL [facility] Mean Corpuscular Hemoglobin 28.9 27.0 - 33.0 pg [facility] Mean Corpuscular HGB Conc 33.9 31.0 - 35.0 g/dl [facility] Red Cell Distribution Width 12.7 11.0 - 16.0 % [facility] Platelet Count 271 160 - 400 X10*3/uL [facility] Mean Platelet Volume 10.2 9.4 - 12.3 fL [facility] NRBC Pct Auto 0.0 0.0 - 0.2 /100WBC [facility] NRBC Abs Auto 0.000 0.0 - 0.012 X10*3/uL [facility] Neutrophils % Manual 80(H) 45 - 73 % [facility] Band Neutrophils Percent 17(H) 3 - 5 % [facility] Comment:Results of BANDS claire led to MADI on 04/02/24at 1811 by MUSTAPHA. Lymphocytes Percent Manual 1(L) 20 - 40 % [facility] Monocytes Percent Manual 1(L) 2 - 11 % [facility] Metamyelocytes % (Manual) 1 % [facility] NEUTROPHILS ABSOLUTE MANUAL 8.7(H) 2.0 - 8.3 X10*3/uL [facility] LYMPHOCYTES ABSOLUTE MANUAL 0.1(L) 1.2 - 4.9 X10*3/uL [facility] MONOCYTES ABSOLUTE MANUAL 0.1 0.1 - 1.2 X10*3/uL [facility] Absolute Metamyelocytes 0.1 X10*3/uL [facility] Platelet Estimate NORMAL NORMAL [facility] Platelet Morphology Comment NORMAL [facility] RBC Morphology NORMAL [facility] 04/02/2024 4:19 PM EST 04/02/2024 4:22 PM EST us Generic External Data Provider LAB BLOOD ORDERAB LES Final Result [facility] [address] [place] [phone] * (ABNORMAL) Comprehensive Metabolic Panel (04/02/2024 10:27 AM EST) Sodium 137 135 - 145 mmol/L [facility] Potassium 3.8 3.3 - 5.1 mmol/L [facility] Chloride 109(H) 96 - 108 mmol/L [facility] Carbon Dioxide 19(L) 22 - 29 mmol/L [facility] Anion Gap 13 12 - 20 [facility] Urea Nitrogen (BUN) 8(L) 9 - 16 mg/dL [facility] Creatinine, Serum 0.69 0.5 - 1.4 mg/dL [facility] Creatinine Clr Calc Pharmacy 89.3 [facility] Comment:Provided height and weight: 152.4 cm,57.153 kg.eGFR (calculated from the MDRD study equation) and eCrCl(calculated from the Cockcroft-Gault equation) are based ondifferent parameters and may not yield comparable results.If eCrCl result is absurd, please check patient'sheight/weight. Estimated Glomerular Filt Rate >60 [facility] Comment:Chronic Kidney Disea se: Estimated GFR < 60 mL/min/1.12n3Hmzacm Kidney Disease: Estimated GFR < 15 mL/min/1.73m2 Glucose 105 60 - 115 mg/dL [facility] Calcium 9.2 8.4 - 10.2 mg/dL [facility] Bilirubin, Total 0.2 0.0 - 1.0 mg/dL [facility] Aspartate Amino Transferase 22 5 - 31 U/L [facility] Alanine Aminotransferase 19 0 - 31 U/L [facility] Total Protein 8.1(H) 6.5 - 8.0 g/dL [facility] Albumin Level 4.3 3.5 - 5.0 g/dL [facility] Alkaline Phosphatase 67 39 - 117 U/L [facility] 04/02/2024 10:2 7 AM EST 04/02/2024 10:31 AM EST us Generic External Data Provider LAB BLOOD ORDERAB LES Final Result Performing Organization Address City/[facility]/ZIP Co de Phone Number [facility] [address] [place] [phone] * Albumin, Random Urine W/Creatinine (10/05/2022 2:36 PM EDT) Creatinine, Urine 211.99 mg/dL [facility] Microalbumin Urine 16.0 mg/L [facility] Microalbum Creatinine Ratio Ur 7.5 ug/mg cr [facility] Comment:Albumin/Creatinine R atio Reference Ranges: Normal: < 30 ug/mg creatinine Microalbuminuria: 30 - 300 ug/mg creatinineClinical Albuminuria: > 300 ug/mg creatinine Urine 10/05/2022 2:36 PM EDT 10/05/2022 3:58 PM EDT us Kelly Leyva MD LAB URINE ORDERAB LES Final Result Performing Organization Address City/[facility]/ZIP Co de Phone Number [facility] [address] [place] [phone] * Hepatitis C Antibody Reflex (10/05/2022 11:32 AM EDT) Hepatitis C Antibody Nonreactive Nonreactive [facility] Comment:Antibodies to HCV no t detected; does not exclude early acuteHCV infection. 10/05/2022 11:3 2 AM EDT 10/05/2022 1:02 PM EDT us Kelly Leyva MD LAB BLOOD ORDERAB LES Final Result Performing Organization Address City/[facility]/ZIP Co de Phone Number [facility] [address] [place] [phone] * HIV Ab/Ag ([facility]) (10/05/2022 11:32 AM EDT) [facility] HIV AB/AG Nonreactive Nonreactive [facility] Comment:HIV-1 p24 Ag and/or HIV-1/HIV-2 Ab not detected.A test result that is nonreactive does not exclude thepossibility of exposure to or infection with HIV-1 and/orHIV-2. Nonreactive results in this assay for individualswith prior exposure to HIV-1 and/or HIV-2 may be due toantigen and antibody levels that are below the limit ofdetection of this assay.The [employer] Director Of Medical Review HIV Ag/Ab Combo assay result andsupplemental assay results should be interpreted inconjunction with the patient's clinical presentation,history and other laboratory results. If the results areinconsistent with clinical evidence, additional testing issuggested to confirm the result. 10/05/2022 11:3 2 AM EDT 10/05/2022 1:02 PM EDT us Kelly Leyva MD LAB BLOOD ORDERAB LES Final Result Performing Organization Address [facility]/ZIP Co de Phone Number [facility] [address] [place] [address] [phone] * Hemoglobin A1c (10/05/2022 11:32 AM EDT) Pathologist [facility] Hemoglobin A1c 5.0 % [facility] Comment:Hemoglobin A1C Refer ence Range Adults: 4.8 - 6.0 % Non diabetic: < 6.0 % Goal: < 7.0 %Additional Action Suggested: > 8.0 %Note: Hemoglobin A1c results are invalid for patients with abnormal amounts of HbF. Blood transfusions may impact the HbA1c concentration in the patient sample. Estimated Average Glucose 97 mg/dL [facility] Comment:eAG = Estimated ave rage glucose which is %A1C expressed asaverage glucose, using the formula of the L6S-UqrusyzJhbkafa Glucose study (ADAG), Diabetes Care, Vol.31,#8,Sep. 2007 Blood Venous blood specimen / Unknown 10/05/2022 11:32 AM EDT 10/05/2022 1:02 PM EDT us Kelly Leyva MD LAB BLOOD ORDERAB LES Final Result [facility] [address] [place] [address] [phone] * Lipid Panel, Standard (10/05/2022 11:32 AM EDT) Triglycerides 160 mg/dL [facility] Comment:Desirable Triglyceri de: less than 150 mg/dLBorderline High Triglyceride 150-199 mg/dLHigh Triglyceride: 200-499 mg/dLVery High Triglyceride: greater than or equal to 5OO mg/dL Cholesterol 202 mg/dL [facility] Comment:Desirable Cholestero l: less than 200 mg/dLBorderline High Cholesterol: 200-239 mg/dLHigh Cholesterol: greater than 239 mg/dL LDL Cholesterol Calculated 122 mg/dl [facility] Comment:Desirable LDL: less than 100 mg/dLNear Optimal/Above Optimal LDL: 110- 129 mg/dLBorderline High LDL: 130-159 mg/dLHigh LDL: 160-189 mg/dLVery High LDL: greater than or equal to 190 mg/dL HDL Cholesterol 48 mg/dL [facility] Comment:Desirable HDL: great er than 40 mg/dL Note: This HDL assay may give artificially low results in patients with liver disease. Blood Venous blood specimen / Unknown 10/05/2022 11:32 AM EDT 10/05/2022 1:02 PM EDT Kelly Leyva MD LAB BLOOD ORDERAB LES Final Result [facility] [address] [place] [phone] from Last 3 Months or Most Recently Relevant to Health Maintenance Insurance [facility] [address] [id number] [facility] Care Teams Scrap Shear Operator Relationship Specialty Start Date End Date Kelly Hanley MD [address] [place] [phone] PCP - General Internal Medicine 07/22/22
== END 2024-06-27 14:14 | disposition home or self-care (01) ==
LOC: HO.HCS 13:51
PROVIDERS: PCP Student in an Organized Health Care Education/Training Program
DX: I47.10 Supraventricular tachycardia, unspecified (principal); R00.0 Tachycardia, unspecified
CPT/HCPCS: 93010; 99213; G2211

== ENCOUNTER → 2024-06-27 13:51 | Outpatient (BNVA) | payer OTHER, SELFPAY | PROVIDERS: PCP Student in an Organized Health Care Education/Training Program | DX: I47.10 Supraventricular tachycardia, unspecified (principal) | CPT/HCPCS: 93005; 99212 ==

== ENCOUNTER → 2024-07-10 12:30 | Outpatient (BNV) | payer OTHER, SELFPAY | PROVIDERS: PCP Student in an Organized Health Care Education/Training Program; Visit Provider Internal Medicine | DX: N64.59 Other signs and symptoms in breast (principal); N64.52 Nipple discharge | CPT/HCPCS: 76642; 77066; G0279 ==

== ENCOUNTER 2024-07-10 12:33 | Outpatient (REF) | payer OTHER, SELFPAY ==
--- NOTE | ~2024-07-10 | MM_ITS ---
EXAMINATION: MM DIAGNOSTIC DIGITAL BREAST TOMOSYNTHESIS, BILATERAL Right limited ultrasound. CLINICAL INFORMATION: Right itchy nipple with clear discharge. COMPARISON: Mammography: Baseline. TECHNIQUE: Digital breast mammography with tomosynthesis is performed in both the craniocaudal and mediolateral oblique views along with computer-aided detection (CAD). FINDINGS: There are scattered areas of fibroglandular density (ACR BI-RADS breast composition Category b). Left: There are no significant masses, abnormal calcifications, or other abnormalities. Right: No suspicious masses calcifications or other abnormal findings. Targeted color Doppler ultrasound scanning in the retroareolar region area of patient's nipple itchiness and clear discharge demonstrates normal fibroglandular breast tissue. There is no sonographic abnormal findings. Results are provided to the patient at time of visit by the technologist. MM/MM tomosynthesis diagnostic BI IMPRESSION: Left: Negative. Right: No mammographic or sonographic abnormality to account for the clear right nipple discharge and itchiness. Recommend clinical evaluation and follow-up. ASSESSMENT: BI-RADS BI-RADS 1 - Negative RECOMMENDATION: 1 year F/U This patient's information was entered into a reminder system with a target due date for their next mammogram. Electronically signed by: Marina Cortes DO 07/10/2024 01:06 PM EDT
--- OUTSIDE RECORDS SUMMARY | 2024-07-10 13:19 | XMS_ITS | Encounter Summary ---
Author Organization [employer] Address [address] [place] [address] [address] [place] [address] Care Team Providers Care Pipelines Laborer Name Role Phone Ginger Lugo Primary Care Provider [phone] Kelly Hanley MD Primary Care Pro vider Encounter Details Date Type Department Care Team (Latest Contact Info) Description 12/31/2020 Abstract [facility] CONVERSIONS Dental, [...] Care Team (Late st Contact Info) Description 08/15/2024 1:30 PM EDT Office Visit [facility] MEDICINE [address] [place], [place] [phone] Kelly Hanley MD [address] [place], [place] [phone] documented as of this encounter Visit Diagnoses Not on filedocumented in this encounter Care Teams Pipelines Laborer Relationship Specialty Start Date End Date Ginger Lugo FNP [address] [place] [phone] PCP - General Family Medicine 10/17/21 07/21/22 Kelly Hanley MD [address] [place] [phone] PCP - General Internal Medicine 07/22/22 documented as of this encounter
--- OUTSIDE RECORDS SUMMARY | 2024-07-10 13:19 | XMS_ITS | Clinical Summary ---
Author Organization [employer] Address [address] [place] [address] [address] [place] [address] Care Team Providers Care Clinic Receptionist Name Role Phone Kelly Hanley MD Primary [...] after use. 1 each 1 3 Active diphenhydrAMIN E (BENADryl) 25 MG tablet Take 1 tablet (25 mg) by mouth every 6 (six) hours if needed for itching or allergies. 30 tablet 1 3 Active Alcohol Swabs 70 % pads 1 Units in the morning. 100 each 3 Active glucose 4 g chewable tabletIndicati ons:Hypoglycem ic disorder Chew 4 tablets (16 g) if needed for low blood sugar. 50 tablet 2 3 Active Blood Glucose Monitoring Suppl (FreeStyle Essex Lite) w/Device kitIndications :Hypoglycemic disorder,Type 2 diabetes mellitus without complication, without long-term current use of insulin ([facility]) 1 DEVICE IN THE MORNING. 1 kit 3 Active FreeStyle lancetsIndicat ions:Hypoglyce dori disorder,Type 2 diabetes mellitus without complication, without long-term current use of insulin ([facility]) 1 each by Other route in the morning. Use bid, dx type 2 diabetes 100 each 3 Active hydrocortisone 1 % cream Apply topically 2 times daily. 1.5 g 3 Active glucose blood (OneTouch Ultra) test stripIndicatio ns:Hypoglycemi c disorder,Type 2 diabetes mellitus without complication, without long-term current use of insulin ([facility]/HCC) USE TO TEST BLOOD SUGAR TWICE A DAY 100 each 3 3 Active Blood Glucose Monitoring Suppl (ONE TOUCH ULTRA 2) w/Device kit USE TO TEST BLOOD SUGAR TWICE A DAY 1 kit 3 Active OneTouch Delica Lancets 33G misc USE TO TEST BLOOD SUGAR TWICE A DAY 100 each 3 3 Active Diclofenac Sodium 1 % gelIndications :Mid [...] for wheezing. 15 g 3 4 Active Spacer/Aero-Ho lding Chambers (OptiChamber Charlotte) misc 1 each every 4 (four) hours if needed (asthma). 1 each 4 Active buPROPion XL (Wellbutrin XL) 300 MG 24 hr tablet TAKE 1 TABLET BY MOUTH EVERY MORNING TAKE WITH THE 150 MG TABLET. Active Corlanor 5 MG tablet Take 1 tablet by mouth. Active triamcinolone (Kenalog) 0.1 % ointment Apply topically 2 times daily for 7 days. 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 and referred today to manager digital ad operations ,not taking metformin x 1 year Angioedema 09/05/2022 Assessment & Plan (10/11/2022 6:38 PM EDT): Reports at least 3 times of facial rash and lip swelling w no other symptoms w no clear trigger ,not occurring again -alarm signs and symptoms -continue anthistamines prn -px epipen In case of emergency -referred to english language learner tutor -pt to call for apt -has info -if not seen by english language learner tutor until next visit will order MISTY,C3-C4 .etc Assessment & Plan (09/05/2022 9:14 PM EDT): Reports at least 3 times of facial rash and lip swelling w no other symptoms w no clear trigger -alarm signs and symptoms -continue anthistamines prn -px epipen In case of emergency -referred today to english language learner tutor Schizoaffective disorder 06/01/2021 Postural orthostatic tachycardia syndrome [...] (10/11/2022 6:32 PM EDT): Asthma/COPD -f w satellite installation technician Assessment & Plan (09/05/2022 9:03 PM EDT): Asthma/COPD -f w satellite installation technician Cervical incompetence 08/10/2011 Migraine 08/10/2011 Polycystic ovaries 08/19/2009 Resolved Problems Problem Noted Date Diagnosed Date Resolved Date Mood disorder 11/27/2017 09/05/2022 Encounters Date Type Department Care Team Description 07/04/2024 Telephone [facility] MEDICINE [address] [place] [phone] Rula Corley CN No Show 07/03/2024 Telephone [facility] MEDICINE [address] [place] [phone] Kelly Hanley MD chartprep 06/05/2024 Telephone [facility] MEDICINE [address] [place] [phone] Kelly Hanley MD Care Coordination 06/04/2024 1:30 PM EDT Office Visit [facility] MEDICINE [address] [place] [phone] Kelly Hanley MD Family history of malignant neoplasm (Primary Dx); Breast pain; Annual physical exam; Hypoglycemia; Dietary counseling; Exercise counseling; Type 2 diabetes mellitus without complication, without long-term current use of insulin ([facility]); Schizoaffective disorder, bipolar type ([facility]/HCC); Asthma-COPD overlap syndrome ([facility]/HCC); SVT (supraventricular tachycardia) ([facility]); Health care maintenance; Angioedema, initial encounter; Family history of cancer 06/04/2024 Travel 05/27/2024 Telephone [facility] MEDICINE [address] [place] [phone] Kelly Hanley MD chart prep 05/21/2024 Patient Outreach [facility] MEDICINE [address] [place] [address] Kelly Hanley MD Pre-visit Planning (SDOH Screening negative and Tobacco screening negative) from Last 3 Months Immunizations Immunization Administration Dates Next Due HPV, Quadrivalent 12/03/2009,10/13/2009 [...] housing situation today? I have hannah bynum 05/21/[address] you li [...] Description 08/15/2024 1:30 PM EDT Office Visit [facility] MEDICINE [address] [place] [address] Kelly Hanley MD [address], [place] [phone] Health Maintenance Due Date Last Done Comments [...] 2023 , 12/01/2020, 01/10/2019, Additional history exists SDOH Screening 05/21/2025 05/21/2024 Alcohol/Substance Use Screening 06/04/2025 06/04/2024 Depression Screening 06/04/2025 06/04/2024, 06/05/19 25 Disability Screening 06/04/2025 06/04/2024 Tobacco Screening 06/04/2025 06/04/2024 Dental X-Ray: Full [...] Procedure Name Priority Date/Time Associated Diagnosis Comments BI MAMMOGRAM DIAGNOSTIC TOMOSYNTHESIS BILATERAL Routine 07/10/2024 12:40 PM EDT Breast pain AMB REFERRAL TO GENETICS Routine 06/07/2024 Family history of malignant neoplasm POCT , URINE Routine 06/04/2024 2:29 PM EDT Breast pain ALBUMIN, RANDOM URINE W/CREATININE Routine 10/05/2022 2:36 [...] Recently Relevant to Health Maintenance Results * BI Mammogram Diagnostic Tomosynthesis Bilateral (07/10/2024 12:40 PM EDT) Anatomical Region Laterality Modality Breast Bilateral Mammography 07/10/2024 12:4 0 PM EDT Narrative 07/10/2024 1:09 PM EDT ? [facility] ? [address] ?[place] [address] ?[phone] ? Mammography Report ? Signed ? Patient: Kristian Laceyvitate,Guillermina ?MR#: ?? [id number] ? : 1985 ?Acct:[id number] ? Age/Sex: 38 / F ?ADM Date: 05/21/25 ? Loc: HO.MAMMO ? Attending Dr: Kelly Leyva MD ? Ordering Physician: Kelly Hanley MD ?Re ?? sults: 1Negative ? Date of Service: 05/21/25 ?Follow Up: 1 Year From Orig ?? inal Mammogram ? Procedure(s): MM tomosynthesis diagnostic BI ?? Accession Number(s): [id number] ? cc: Kelly Hanley MD ? EXAMINATION: ?? MM DIAGNOSTIC DIGITAL BREAST TOMOSYNTHESIS, BILATERAL ?? Right limited ultrasound. ? CLINICAL INFORMATION: ? Right itchy nipple with clear discharge. ? COMPARISON: ?? Mammography: Baseline. ? TECHNIQUE: ?? Digital breast mammography with tomosynthesis is performed in both the ?? craniocaudal and mediolateral oblique views along with computer-aided ?? detection (CAD). ? FINDINGS: ?? There are scattered areas of fibroglandular density (ACR BI-RADS breast ?? composition Category b). ?? Left: ?? There are no significant masses, abnormal calcifications, or other ?? abnormalities. ? Right: ?? No suspicious masses calcifications or other abnormal findings. ? Targeted color Doppler ultrasound scanning in the retroareolar region ?? area of patient's nipple itchiness and clear discharge demonstrates ?? normal fibroglandular breast tissue. There is no sonographic abnormal ?? findings. ? Results are provided to the patient at time of visit by the ?? technologist. ? MM/MM tomosynthesis diagnostic BI ?? IMPRESSION: ?? Left: Negative. ? Right: No mammographic or sonographic abnormality to account for the ?? clear right nipple discharge and itchiness. Recommend clinical ?? evaluation and follow-up. ? ASSESSMENT: ? BI-RADS BI-RADS 1 - Negative ? RECOMMENDATION: ?? 1 year F/U ? This patient's information was entered into a reminder system with a ?? target due date for their next mammogram. ? Electronically signed by: ??Marina Cortes DO ??07/10/2024 01:06 PM EDT ?? RP ? Dictated By: ?Marina Cortes DO ? Signed By: ?<Electronically signed by Marina Cortes, DO in OV> ? 07/10/24 1306 ? DD/DT: 07/10/ 1240 ? TD/TT: 07/10/24 1255 ? Manager Grant: ? Procedure Note Donotuseinterpreter, Image - 07/10/2024 [facility] [address] [place], [place] [address] Mammography Report Signed Patient: Guillermina StackMR#: [id number] : 1985Acct:[id number] Age/Sex: 38 / FADM Date: 07/10/24 Loc: HO.MAMMO Attending Dr: Kelly Leyva MD Ordering Physician: Kelly Hanley sults: 1Negative Date of Service: 07/10/24Follow Up: 1 Year From Orig inal Mammogram Procedure(s): MM tomosynthesis diagnostic BI Accession Number(s): [id number] cc: Kelly Hanley MD EXAMINATION: MM DIAGNOSTIC DIGITAL BREAST TOMOSYNTHESIS, BILATERAL Right limited ultrasound. CLINICAL INFORMATION: Right itchy nipple with clear discharge. COMPARISON: Mammography: Baseline. TECHNIQUE: Digital breast mammography with tomosynthesis is performed in both the craniocaudal and mediolateral oblique views along with computer-aided detection (CAD). FINDINGS: There are scattered areas of fibroglandular density (ACR BI-RADS breast composition Category b). Left: There are no significant masses, abnormal calcifications, or other abnormalities. Right: No suspicious masses calcifications or other abnormal findings. Targeted color Doppler ultrasound scanning in the retroareolar region area of patient's nipple itchiness and clear discharge demonstrates normal fibroglandular breast tissue. There is no sonographic abnormal findings. Results are provided to the patient at time of visit by the technologist. MM/MM tomosynthesis diagnostic BI IMPRESSION: Left: Negative. Right: No mammographic or sonographic abnormality to account for the clear right nipple discharge and itchiness. Recommend clinical evaluation and follow-up. ASSESSMENT: BI-RADS BI-RADS 1 - Negative RECOMMENDATION: 1 year F/U This patient's information was entered into a reminder system with a target due date for their next mammogram. Electronically signed by: Marina Cortes DO 07/10/2024 01:06 PM EDT Dictated By: Marina Cortes DO Signed By: <Electronically signed by Marina Cortes DO in OV> 07/10/24 1306 DD/ 1240 TD/TT: 07/10/24 1255 Manager Grant: Kelly Leyva MD IMG BI PROCEDURES Final Result * Referral to Genetics (06/07/2024) Kelly Leyva MD OUTPATIENT REFERR AL ORDERABLES Final Result * POCT Urine (06/04/2024 2:29 PM EDT) Preg Test, Ur Negative Negative, Indeterminate, None Detected, Invalid, Specimen unsatisfactory for evaluation, Weakly Positive QC Media Lot # [id number] Lot# Expiration Date [id number] Urine 06/04/2024 2:29 PM EDT Kelly Leyva MD POINT OF CARE JACIEL T ENTER/EDIT ORDERABLES Final Result * Albumin, Random Urine W/Creatinine (10/05/2022 2:36 PM EDT) Creatinine, Urine 211.99 mg/dL [facility] Microalbumin Urine 16.0 mg/L [facility] Microalbum Creatinine Ratio Ur 7.5 ug/mg cr [facility] Comment:Albumin/Creatinine R atio Reference Ranges: Normal: < 30 ug/mg creatinine Microalbuminuria: 30 - 300 ug/mg creatinineClinical Albuminuria: > 300 ug/mg creatinine Urine 10/05/2022 2:36 PM EDT 10/05/2022 3:58 PM EDT Kelly Leyva MD LAB URINE ORDERAB LES Final Result [facility] [address] [place] [address] [phone] * Hepatitis C Antibody Reflex (10/05/2022 11:32 AM EDT) Hepatitis C Antibody Nonreactive Nonreactive [facility] Comment:Antibodies to HCV no t detected; does not exclude early acuteHCV infection. 10/05/2022 11:3 2 AM EDT 10/05/2022 1:02 PM EDT us Kelly Leyva MD LAB BLOOD ORDERAB LES Final Result Performing Organization Address [facility]/ZIP Co de Phone Number [facility] [address] [place] [phone] * HIV Ab/Ag ([facility]) (10/05/2022 11:32 AM EDT) Pathologist [facility] HIV AB/AG Nonreactive Nonreactive [facility] Comment:HIV-1 p24 Ag and/or HIV-1/HIV-2 Ab not detected.A test result that is nonreactive does not exclude thepossibility of exposure to or infection with HIV-1 and/orHIV-2. Nonreactive results in this assay for individualswith prior exposure to HIV-1 and/or HIV-2 may be due toantigen and antibody levels that are below the limit ofdetection of this assay.The [employer] Specialist HIV Ag/Ab Combo assay result andsupplemental assay results should be interpreted inconjunction with the patient's clinical presentation,history and other laboratory results. If the results areinconsistent with clinical evidence, additional testing issuggested to confirm the result. 10/05/2022 11:3 2 AM EDT 10/05/2022 1:02 PM EDT us Kelly Leyva MD LAB BLOOD ORDERAB LES Final Result Performing Organization Address [facility] Co de Phone Number [facility] [address] [place] [phone] * Hemoglobin A1c (10/05/2022 11:32 AM EDT) Hemoglobin A1c 5.0 % [facility] Comment:Hemoglobin A1C Refer ence Range Adults: 4.8 - 6.0 % Non diabetic: < 6.0 % Goal: < 7.0 %Additional Action Suggested: > 8.0 %Note: Hemoglobin A1c results are invalid for patients with abnormal amounts of HbF. Blood transfusions may impact the HbA1c concentration in the patient sample. Estimated Average Glucose 97 mg/dL [facility] Comment:eAG = Estimated ave rage glucose which is %A1C expressed asaverage glucose, using the formula of the F8S-NjwejbxFaizmfl Glucose study (ADAG), Diabetes Care, Vol.31,#8,Sep. 2007 Blood Venous blood specimen / Unknown 10/05/2022 11:32 AM EDT 10/05/2022 1:02 PM EDT us Kelly Leyva MD LAB BLOOD ORDERAB LES Final Result [facility] [address] [place] [phone] * Lipid Panel, Standard (10/05/2022 11:32 AM EDT) Triglycerides 160 mg/dL [facility] Comment:Desirable Triglyceri de: less than 150 mg/dLBorderline High Triglyceride 150-199 mg/dLHigh Triglyceride: 200-499 mg/dLVery High Triglyceride: greater than or equal to 5OO mg/dL Cholesterol 202 mg/dL [facility] Comment:Desirable Cholestero l: less than 200 mg/dLBorderline High Cholesterol: 200-239 mg/dLHigh Cholesterol: greater than 239 mg/dL LDL Cholesterol Calculated 122 mg/dl [facility] Comment:Desirable LDL: less than 100 mg/dLNear Optimal/Above Optimal LDL: 110- 129 mg/dLBorderline High LDL: 130-159 mg/dLHigh LDL: 160-189 mg/dLVery High LDL: greater than or equal to 190 mg/dL HDL Cholesterol 48 mg/dL [facility] Comment:Desirable HDL: great er than 40 mg/dL Note: This HDL assay may give artificially low results in patients with liver disease. Blood Venous blood specimen / Unknown 10/05/2022 11:32 AM EDT 10/05/2022 1:02 PM EDT Kelly Leyva MD LAB BLOOD ORDERAB LES Final Result [facility] [address] [place] [address] [phone] from Last 3 Months or Most Recently Relevant to Health Maintenance Insurance [address] [place] [phone] [facility] [address] [facility] [address] [place] [phone] Care Teams Clinic Receptionist Relationship Specialty Start Date End Date Kelly Hanley MD [address] [place] [phone] PCP - General Internal Medicine 07/22/22
--- OUTSIDE RECORDS SUMMARY | 2024-07-10 13:19 | XMS_ITS | Encounter Summary ---
Author Organization [employer] Address [address] [place] [address] 7 [place] [address] Care Team Providers Care Hvac Sheet Metal Installer Name Role Phone Ginger Lugo Primary Care Provider [phone] Kelly Hanley MD Primary Care Pro vider Encounter Details Date Type Department Care Team (Latest Contact Info) Description 02/14/2019 Abstract [facility] CONVERSIONS Dental, Provider, DDS Social History [...] Description 08/15/2024 1:30 PM EDT Office Visit [facility] MEDICINE [address] [place], [place] [id number] Kelly Hanley MD [address] [place] [address] documented as of this encounter Visit Diagnoses Not on filedocumented in this encounter Care Teams Hvac Sheet Metal Installer Relationship Specialty Start Date End Date Ginger Lugo FNP [address] [place] [address] PCP - General Family Medicine 10/17/21 07/21/22 Kelly Hanley MD [address] [place] [id number] PCP - General Internal Medicine 07/22/22 documented as of this encounter
--- OUTSIDE RECORDS SUMMARY | 2024-07-10 13:19 | XMS_ITS | Encounter Summary ---
Author Organization [facility] Address [address] [place] [address] Care Team Providers Care Manager Educational Name Role Phone Unavailable Primary Care Provider Unavailabl e Encounter Details Date Type Department Care Team (Late st Contact Info) Description 01/02/2024 Lab Requisition [facility] - Main Lab [address] [facility] [place] [address] Belen Menendez MD [address] [place], [place] [id number] Urinary tract infection, site not specified Social [...] Trichomonas vaginalis Negative Negative 01/04/2024 11:12 AM [facility] Gardnerella vaginalis Positive(A) Negative 01/04/2024 11:12 AM [facility] Analia Species Negative Negative 11:12 AM [facility] Swab Vaginal structure / Unknown 01/02/2024 01/03/2024 1:09 PM EST us Belen Menendez MD LAB MICROBIOLOGY - GENERA L ORDERABLES Final Result [facility] [address] [place] [address], [place] [phone] * (ABNORMAL) Urinalysis microscopic only (01/02/2024 12:00 [...] MD LAB URINE ORDERABLES Kate l Result [facility] [address] [place] [address], [place] [phone] * Culture urine (01/02/2024 12:00 AM EST) Culture, Urine No growth 01/04/2024 11:54 AM EST [facility] Urine Urine specimen obtained by clean catch procedure / Unknown 01/02/2024 01/02/2024 6:42 PM EST us Belen Menendez MD LAB MICROBIOLOGY - GENERA L ORDERABLES Final Result [facility] [address] [place] [address], [place] [phone] documented in this encounter Visit Diagnoses Diagnosis Urinary tract infection, site not specified documented in this encounter
--- OUTSIDE RECORDS SUMMARY | 2024-07-10 13:20 | XMS_ITS | Encounter Summary ---
Author Organization [facility] Address [address] [place] [address] Care Team Providers Care Orthopaedic Physician Assistant Name Role Phone Unavailable Primary Care Provider Unavailabl e Encounter Details Date Type Department Care Team (Late st Contact Info) Description 05/09/2024 Lab Requisition [facility] - Main Lab [address] [facility] [place] [address] Belen Menendez MD [address] [place] [address] Urinary tract infection, site not [...] vaginalis Negative Negative 05/10/2024 11:[address] [facility] Gardnerella vaginalis Positive(A) Negative 05/10/2024 11:[address] [facility] Analia Species Negative Negative 11:[address] [facility] Swab Vaginal structure / Unknown 05/09/2024 05/10/2024 8:33 AM EDT Belen Menendez MD LAB MICROBIOLOGY - GENERA L ORDERABLES Final Result [facility] [address] [place] [address], * (ABNORMAL) Culture urine (05/09/2024 12:00 AM EDT) Culture, Urine >100,000 CFU/mL Escherichia coli(A) NERISSA 05/11/2024 9:[address] [facility] Urine Urine specimen obtained by [...] MICROBIOLOGY - GENERA L ORDERABLES Final Result [facility] [address] [place] [address], [place] [phone] * (ABNORMAL) Urinalysis with reflex microscopic and culture (05/09/2024 12:00 AM EDT) Specific [place] Urine 1.021 1.003 - 1.030 LAB URINALYSIS - AUTOMATED METHOD 05/09/2024 7:[address] [facility] pH, Urine 7.0 5.0 - 8.0 pH LAB URINALYSIS - AUTOMATED METHOD 05/09/2024 7:[address] [facility] Leukocytes, Urine Moderate(A) Negative LAB URINALYSIS - AUTOMATED METHOD 05/09/2024 7:[address] [facility] Nitrite, Urine Positive(A) Negative LAB URINALYSIS - AUTOMATED METHOD 05/09/2024 7:[address] [facility] Protein, Urine Negative <=Trace mg/dL LAB URINALYSIS - AUTOMATED METHOD 05/09/2024 7:37 PM [facility] Glucose, Urine Negative Negative mg/dL LAB URINALYSIS - AUTOMATED METHOD 05/09/2024 7:37 PM [facility] Ketones, Urine Trace(A) Negative mg/dL LAB URINALYSIS - AUTOMATED METHOD 05/09/2024 7:37 PM [facility] Urobilinogen , Urine 1.0 0.2 - 1.0 mg/dL LAB URINALYSIS - AUTOMATED METHOD 05/09/2024 7:37 PM [facility] Bilirubin, Urine Negative Negative LAB URINALYSIS - AUTOMATED METHOD 05/09/2024 7:37 PM [facility] Blood, Urine Negative Negative LAB URINALYSIS - AUTOMATED METHOD 05/09/2024 7:37 PM [facility] RBC, Urine 4.1(H) 0 - 4 /HPF LAB URINALYSIS - AUTOMATED METHOD 05/09/2024 7:37 PM [facility] WBC, Urine 58.4(H) 0 - 4 /HPF LAB URINALYSIS - AUTOMATED METHOD 05/09/2024 7:37 PM [facility] Squamous Epithelial, Urine 58 0 - 60 /LPF LAB URINALYSIS - AUTOMATED METHOD 05/09/2024 7:37 PM [facility] Bacteria, Urine Many(A) Negative /HPF LAB URINALYSIS - AUTOMATED METHOD 05/09/2024 7:37 PM [facility] Hyaline Casts, Urine 30.9(H) 0 - 3 /LPF LAB URINALYSIS - AUTOMATED METHOD 05/09/2024 7:37 PM [facility] Urine Urine specimen obtained by clean catch procedure / Unknown 05/09/2024 05/09/2024 6:31 PM EDT us Belen Menendez MD LAB URINE ORDERABLES Kate leon Result [facility] [address] [place] [address], [place] [phone] * Rasmussen urine culture tube (05/09/2024 12:00 AM EDT) Extra Tube Hold for add-ons. 05/09/2024 8:[address] [facility] Comment:Auto resulted. Urine Urine specimen obtained by clean catch procedure / Unknown 05/09/2024 05/09/2024 6:31 PM EDT Belen Menendez MD LAB URINE ORDERABLES Kate l Result Performing Organization Address [facility] Co de Phone Number [facility] [address] [place] [address], [place] [phone] * Chlamydia trachomatis and Neisseria gonorrhoeae molecular study (05/09/2024 12:00 AM EDT) Pathologist [facility] Neisseria gonorrhoeae PCR Negative Negative LAB MOLECULAR DIAGNOSTICS METHOD 05/10/2024 8:[address] [facility] Chlamydia trachomatis PCR Negative Negative LAB MOLECULAR DIAGNOSTICS METHOD 05/10/2024 8:[address] [facility] Swab Rectum structure / Unknown 05/09/2024 05/09/2024 6:31 PM EDT Belen Menendez MD LAB MICROBIOLOGY - GENERA L ORDERABLES Final Result Performing Organization Address [facility]/ZIP Co de Phone Number [facility] [address] [place] [address], [place] [phone] * Chlamydia trachomatis and Neisseria gonorrhoeae molecular study (05/09/2024 12:00 AM EDT) Neisseria gonorrhoeae PCR Negative Negative LAB MOLECULAR DIAGNOSTICS METHOD 05/10/2024 8:[address] [facility] Chlamydia trachomatis PCR Negative Negative LAB MOLECULAR DIAGNOSTICS METHOD 05/10/2024 8:[address] [facility] Swab Structure of anterior portion of neck / Unknown 05/09/2024 05/09/2024 6:31 PM EDT us Belen Menendez MD LAB MICROBIOLOGY - GENERA L ORDERABLES Final Result Performing Organization Address City/[facility]/ZIP Co de Phone Number [facility] [address] [place] [address], [place] [phone] * Chlamydia trachomatis and Neisseria gonorrhoeae molecular study (05/09/2024 12:00 AM EDT) Neisseria gonorrhoeae PCR Negative Negative LAB MOLECULAR DIAGNOSTICS METHOD 05/10/2024 9:[address] [facility] Chlamydia trachomatis PCR Negative Negative LAB MOLECULAR DIAGNOSTICS METHOD 05/10/2024 9:[address] [facility] Urine Urethral structure / Unknown 05/09/2024 05/09/2024 6:31 PM EDT us Belen Menendez MD LAB MICROBIOLOGY - GENERA L ORDERABLES Final Result Performing Organization Address City/[facility]/ZIP Co de Phone Number [facility] [address] [place] [address], [place] [phone] documented in this encounter Visit Diagnoses Diagnosis Urinary tract infection, site not specified documented in this encounter
--- OUTSIDE RECORDS SUMMARY | 2024-07-10 13:20 | XMS_ITS | Clinical Summary ---
Author Organization [facility] Address [address] [place] [address] Care Team Providers Care Waiter/Waitress Third Class Name Role Phone Jayda Hanson Primary Care Provider [phone] Medications ibuprofen (MOTRIN) 600 mg tablet Take [...] 1-dose 75+ series) 09/19/2062 Insurance [facility] [place] [id number] Care Teams Waiter/Waitress Third Class Relationship Specialty Start Date End Date Jayda Hanson [address] [place] [address] PCP - General 09/08/16
--- OUTSIDE RECORDS SUMMARY | 2024-07-10 13:20 | XMS_ITS | Clinical Summary ---
Author Organization [address] [facility] Address [address] [place] [address] Phone Care Team Providers Care Professor Of Communication And Writing Name Role Phone Unavailable Primary Care Provider Unavailabl e Encounters Date Type Department Care Team Description 05/09/2024 Lab Requisition [facility] - Main Lab [address] [facility] [place] [address] Belen Menendez MD Urinary tract [...] and culture (05/09/2024 12:00 AM EDT) Specific Arab Urine 1.021 1.003 - 1.030 LAB URINALYSIS - AUTOMATED METHOD 05/09/2024 7:37 PM [facility] pH, Urine 7.0 5.0 - 8.0 pH LAB URINALYSIS - AUTOMATED METHOD 05/09/2024 7:37 PM [facility] Leukocytes, Urine Moderate(A) Negative LAB URINALYSIS - AUTOMATED METHOD 05/09/2024 7:37 PM [facility] Nitrite, Urine Positive(A) Negative LAB URINALYSIS - AUTOMATED METHOD 05/09/2024 7:37 PM [facility] Protein, Urine Negative <=Trace mg/dL LAB [...] - AUTOMATED METHOD 05/09/2024 7:37 PM EDT [facility] Bacteria, Urine Many(A) Negative /HPF LAB URINALYSIS - AUTOMATED METHOD 05/09/2024 7:37 PM EDT [facility] Hyaline Casts, Urine 30.9(H) 0 - 3 /LPF LAB URINALYSIS - AUTOMATED METHOD 05/09/2024 7:37 PM EDT [facility] Urine Urine specimen obtained by clean catch procedure / Unknown 05/09/2024 05/09/2024 6:31 PM EDT us Belen Menendez MD LAB URINE ORDERABLES Kate l Result Performing Organization Address City/[facility]/ZIP Co de Phone Number [facility] [address] [place] [address], [place] [phone] * Rasmussen urine culture tube (05/09/2024 12:00 AM EDT) Pathologist [facility] Extra Tube Hold for add-ons. 05/09/2024 8:01 PM EDT [facility] Comment:Auto resulted. Urine Urine specimen obtained by clean catch procedure / Unknown 05/09/2024 05/09/2024 6:31 PM EDT us Belen Menendez MD LAB URINE ORDERABLES Kate l Result [facility] [address] [place] [address], [place] [phone] * (ABNORMAL) Vaginitis pathogens molecular study (05/09/2024 12:00 AM EDT) Trichomonas vaginalis Negative Negative 05/10/2024 11:19 AM EDT [facility] Gardnerella vaginalis Positive(A) Negative 05/10/2024 11:19 AM EDT [facility] Analia Species Negative Negative 11:19 AM EDT [facility] Swab Vaginal structure / Unknown 05/09/2024 05/10/2024 8:33 AM EDT us Belen Menendez MD LAB MICROBIOLOGY - GENERA L ORDERABLES Final Result Performing Organization Address [facility]/ZIP Co de Phone Number [facility] [address] [place] [address], [place] [phone] * Chlamydia trachomatis and Neisseria gonorrhoeae molecular study (05/09/2024 12:00 AM EDT) Only the most recent of3 resultswithin the time period is included. Neisseria gonorrhoeae PCR Negative Negative LAB MOLECULAR DIAGNOSTICS METHOD 05/10/2024 8:45 AM EDT [facility] Chlamydia trachomatis PCR Negative Negative LAB MOLECULAR DIAGNOSTICS METHOD 05/10/2024 8:45 AM EDT [facility] Swab Rectum structure / Unknown 05/09/2024 05/09/2024 6:31 PM EDT us Belen Menendez MD LAB MICROBIOLOGY - GENERA L ORDERABLES Final Result Performing Organization Address [facility]/ZIP Co de Phone Number [facility] [address] [place] [address], [place] [phone] * (ABNORMAL) Culture urine (05/09/2024 12:00 AM EDT) Culture, Urine >100,000 CFU/mL Escherichia coli(A) NERISSA 05/11/2024 9:33 AM EDT [facility] Urine Urine specimen obtained [...] MICROBIOLOGY - GENERA L ORDERABLES Final Result [facility] [address] [place] [address], [place] [phone] from Last 3 Months Insurance [employer] Member Subscriber Plan / Payer (Ef fective 2013-Present) Name:Guillermina Townsend Relation to Subscriber:Self Name:Guillermina Townsend Payer ID:[id number] Group ID:[id number] Type:Not on file Address: [address] [facility] [place] [id number]
--- OUTSIDE RECORDS SUMMARY | 2024-07-10 13:20 | XMS_ITS | Data Portability ---
Author Organization AQUILES RAINES MD [facility], Main Office Address [address] [place] [phone] Assessment Encounter Date Assessment Date Assessment LastModified by Organization Details LastModified Time 02/27/2023 02/27/2023 telemedicine. phone. audio. pt home in [place]. 16 min [email or web address] Not available 03/15/2023 00:19:57 Plan of Treatment Reminders Order Date Submit Date Provider Last Modified By Organization Details Last Modified Time Details Appointments None recorded. Lab culture, urine [address] (Lab), [address] [place] [address], [address], 5 11:57:57 urinalysi s, complete [address] [place] [address] (Lab), [address] [place] [address], [address], 5 11:57:30 CT + NG DNA, PCR, unspecifi ed specimen [address] [place] [address] (Lab), [address] [place] [address], [address], 5 11:59:17 bacterial vaginosis + vaginitis panel, vaginal [address] (Lab), [address] [place] [address], [address], 5 11:58:41 varicella -zoster igg Ab screen, serum 2022 023 nora [facility] (Lab), [address] [place], [address], 3 15:55:50 Referral None recorded. Procedures None recorded. Surgeries None recorded. Imaging None recorded. Medication Orders levofloxa ryan 500 mg tablet 2024 025 [id number] [address] [place], [address], 5 22:54:31 Metrogel 1 % topical 2024 025 [id number] [address] [place], [address], 5 22:55:11 levofloxa ryan 500 mg tablet 2023 024 [id number] [address] [place], [address], 4 16:07:37 Miconazol e-7 2 % vaginal cream 2023 024 [id number] [address] [place], [address], 4 23:43:08 Metrogel Vaginal 0.75 % (37.5 mg/5 gram) 2023 024 [id number] [address] [place], [address], 4 23:43:08 Valtrex 500 mg tablet 2022 023 [email or web address] [id number] [address] [place], [address], 3 02:19:22 Patient TargetsNo targets recorded. Patient InstructionsNo instructions recorded. Reason for Referral None Reported. Results Created Date Observation Date Name Description Value Unit Range Abnormal Flag Note LastModifiedBy Organization Detail LastModifiedTime 02/01/2001/31/2023 WOUND CULTU RE performing lab Perfor [facility] [place] [address] [place] [address]. [place] [address] Medic al Direc tor - Mey bellamy MD Not Available [facility] [address] [place], [address], 02/03/2023 10:10:08 02/01/20 23 02/03/2023 WOUND CULTU RE wound culture FINAL : No patho gens noted ALYSE L SKIN SHAHEEN PRESE NT GRAM STAIN RESUL T NO POLYS , NO EPITH ELIAL CELLS , NO ORGAN ISMS NOTED Not Available [facility] [address] [place], [address], 02/03/2023 10:10:08 02/01/20 23 02/08/2023 HERPE S CULTU RE herpes culture source See Below RESUL T: Coy l - Upper Lip Not Available [facility] [address] [place], [address], 02/08/2023 15:02:35 02/01/20 23 02/08/2023 HERPE S [...] not be ident ified . A negat ariela resul t does not precl ude viral infec tion. The viabi lity of viral agent s can be degra ded if speci mens are impro perly colle cted or store d. The numbe r of viabl e virus parti cles may be below the detec tion thres hold. Test perfo rmed at [facility] , [address], [place] [address] [phone] Katiuska payne MD, PhD - Medic al Direc tor Not Available [facility] [address] [place], [address], 02/08/2023 15:02:35 02/01/20 23 02/08/2023 HERPE S CULTU RE performing lab Perfor sharan [facility] [address] [place] [address] Medic al Dire sivakumar bellamy MD Not Available [facility] [address] [place] [address], [address], 02/08/2023 15:02:35 03/02/19 24 03/02/2023 URINA LYSIS glucose, (UA) NEGATI VE mg/dL negati ve Not Available [facility] [address] [place] [address], [address], 03/02/2023 19:29:10 03/02/19 24 03/02/2023 URINA LYSIS bilirubin, urine NEGATI VE negati ve Not Available [facility] [address] [place] [address], [address], 03/02/2023 19:29:10 03/02/19 24 03/02/2023 URINA LYSIS ketone, urine NEGATI VE mg/dL negati ve Not Available [facility] [address] [place] [address], [address], 03/02/2023 19:29:10 03/02/19 24 03/02/2023 URINA LYSIS specific gravity, urine 1.021 1.003- 1.030 Not Available [facility] [address] [place] [address], [address], 03/02/2023 19:29:10 03/02/19 24 03/02/2023 URINA LYSIS blood, urine TRACE negati ve Not Available [facility] [address] [place] [address], [address], 03/02/2023 19:29:10 03/02/19 24 03/02/2023 URINA LYSIS pH, urine 5.5 5.0-8. 0 Not Available [facility] [address] [place] [address], [address], 03/02/2023 19:29:10 03/02/19 24 03/02/2023 URINA LYSIS protein, urine TRACE mg/dL <= trace Not Available [facility] [address] [place] [address], [address], 03/02/2023 19:29:10 03/02/19 24 03/02/2023 URINA LYSIS urobilinogen , urine 0.2 E.U./ dL 0.2-1. 0 Not Available [facility] [address] [place] [address], [address], 03/02/2023 19:29:10 03/02/19 24 03/02/2023 URINA LYSIS nitrite, urine POSITI VE negati ve abnormal Not Available [facility] [address] [place] [address], [address], 03/02/2023 19:29:10 03/02/19 24 03/02/2023 URINA LYSIS leukocyte esterase, urine TRACE negati ve abnormal Not Available [facility] [address] [place] [address], [address], 03/02/2023 19:29:10 03/02/19 24 03/02/2023 URINA LYSIS RBC, urine 4 /hpf 0-4 Not Available [facility] [address] [place] [address], [address], 03/02/2023 19:29:10 03/02/19 24 03/02/2023 URINA LYSIS WBC, urine 21 /hpf 0-4 high Not Available [facility] [address] [place] [address], [address], 03/02/2023 19:29:10 03/02/19 24 03/02/2023 URINA LYSIS epith cells, urine > 150 /lpf 0-60 high Not Available [facility] [address] [place] [address], [address], 03/02/2023 19:29:10 03/02/19 24 03/02/2023 URINA LYSIS bacteria, urine HEAVY negati ve abnormal Not Available [facility] [address] [place] [address], [address], 03/02/2023 19:29:10 03/02/19 24 03/02/2023 URINA LYSIS hyaline cast, urine 14 /lpf 0-3 high Not Available [facility] [address] [place] [address], [address], 03/02/2023 19:29:10 03/02/19 24 03/02/2023 URINA LYSIS performing lab Perfor sharan [facility] yumiko howard mem[facility] r of [employer] [address] [place] [address] Medic al Direbrien bellamy MD Not Available [facility] [address] [place] [address], [address], 03/02/2023 19:29:10 03/13/19 24 03/14/2023 VAGIN OSIS DNA PANEL trichomonas vaginalis NEGATI VE negati ve Not Available [facility] [address] [place] [address], [address], 03/14/2023 12:01:24 03/13/19 24 03/14/2023 VAGIN OSIS DNA PANEL garderella vaginalis POSITI VE negati ve abnormal Not Available [facility] [address] [place] [address], [address], 03/14/2023 12:01:24 03/13/19 24 03/14/2023 VAGIN OSIS DNA PANEL josh species POSITI VE negati ve abnormal Not Available [facility] [address] [place] [address], [address], 03/14/2023 12:01:24 03/13/19 24 03/14/2023 VAGIN OSIS DNA PANEL performing lab Perfor sharan [facility] ishmael darling a membe r of [employer] [address] [place] [address] Medic al Direbrien bellamy MD Not Available [facility] [address] [place] [address], [address], 03/14/2023 12:01:24 03/13/19 24 03/13/2023 URINE CULTU RE performing lab Perfor [facility], a mem[facility] r of [facility] Of [address] [place] [address] Medic al Dire sivakumar bellamy MD Not Available [facility] [address] [place] [address], [address], 03/15/2023 12:57:50 03/13/19 24 03/15/2023 URINE CULTU RE urine culture Cefaz loli with an NERISSA <=16 predi cts susce ptibi lity to the oral agent s Cefac susi, Cefdi vi, Cefpo doxim e, Cefpr ozil, Cefur oxime , Cepha lexin , and Lorac arbef when used for thera py of uncom plica alice UTIs due to E. coli, K. pneum oniae , and P. mirab ilis. AYAN NUNEZ A COLI Not Available [facility] [address] [place] [address], [address], 03/15/2023 12:57:50 03/13/19 24 03/15/2023 URINE CULTU RE urine culture cfu/m L COLON Y COUNT >100, 000 Not Available [facility] [address] [place] [address], [address], 03/15/2023 12:57:50 03/13/19 24 03/15/2023 URINE CULTU RE report Speci ricardo Pitts e: OBR-1 06-20- Colle cted: Mar 13, 2023 ----- ----- ----- ----- ----- ----- ----- ----- ----- ----- ----- ----- ----- ----- ----- ----- Organ ism: AYAN CANTUI A COLI Antib iotic s Unkno wn [...] <=4 Sensi tive Not Available [facility] [address] [place], [address], 03/15/2023 12:57:50 01/02/20 24 01/02/2024 URINA LYSIS MICRO SCOPI C ONLY RBC, urine 4.2 /hpf 0-4 high Not Available [facility] [address] [place], [address], 01/02/2024 19:34:08 01/02/20 24 01/02/2024 URINA LYSIS MICRO SCOPI C ONLY WBC, urine 1.5 /hpf 0-4 Not Available [facility] [address] [place], [address], 01/02/2024 19:34:08 01/02/20 24 01/02/2024 URINA LYSIS MICRO SCOPI C ONLY squamous epithelial, urine 71 /lpf 0-60 high Not Available [facility] [address] [place], [address], 01/02/2024 19:34:08 01/02/20 24 01/02/2024 URINA LYSIS MICRO SCOPI C ONLY bacteria, urine Negati ve /hpf negati ve Not Available [facility] [address] [place] [address], [address], 01/02/2024 19:34:08 01/02/20 24 01/02/2024 URINA LYSIS MICRO SCOPI C ONLY hyaline casts, urine 2.4 /lpf 0-3 Not Available [facility] [address] [place], [address], 01/02/2024 19:34:08 01/02/20 24 01/02/2024 URINA LYSIS MICRO SCOPI C ONLY note See Report [facility], [address] [facility], [place] [address] Not Available [facility] [address] [place] [address], [address], 01/02/2024 19:34:08 01/02/20 24 01/02/2024 CULTU RE URINE .note See Note Origi nal Order ing Provi javier: ASIM BARAJAS Georgina MARTO YANNA [facility] - Labor atory - [address] [facility], [place], [place] [address] Not Available [facility] [address] [place] [address], [address], 01/04/2024 11:55:59 01/02/20 24 01/02/2024 CULTU RE URINE culture, urine No growth Not Available [facility] [address] [place], [address], 01/04/2024 11:55:59 01/02/20 24 01/02/2024 VAGIN ITIS PATHO GENS MOLEC ULAR STUDY .note See Note Origi nal Order ing Provi javier: ASIM Pino MARTO YANNA [facility] - Labor atory - [address] [facility], [place], [place] [address] Not Available [facility] [address] [place] [address], [address], 01/04/2024 11:13:59 01/02/20 24 01/02/2024 VAGIN ITIS PATHO GENS MOLEC ULAR STUDY trichomonas vaginalis Negati ve negati ve Not Available [facility] [address] [place], [address], 01/04/2024 11:13:59 01/02/20 24 01/02/2024 VAGIN ITIS PATHO GENS MOLEC ULAR STUDY gardnerella vaginalis Positi ve negati ve abnormal Not Available [facility] [address] [place], [address], 01/04/2024 11:13:59 01/02/20 24 01/02/2024 VAGIN ITIS PATHO GENS MOLEC ULAR STUDY josh species Negati ve negati ve Not Available [facility] [address] [place], [address], 01/04/2024 11:13:59 05/10/19 25 05/09/2024 URINA LYSIS WITH REFLE X MICRO SCOPI C AND CULTU RE specific gravity urine 1.021 1.003- 1.030 Not Available [facility] [address] [place], [address], 05/09/2024 19:38:45 05/10/19 25 05/09/2024 URINA LYSIS WITH REFLE X MICRO SCOPI C AND CULTU RE pH, urine 7.0 pH 5.0-8. 0 Not Available [facility] [address] [place], [address], 05/09/2024 19:38:45 05/10/19 25 05/09/2024 URINA LYSIS WITH REFLE X MICRO SCOPI C AND CULTU RE leukocytes, urine Modera te negati ve abnormal Not Available [facility] [address] [place], [address], 05/09/2024 19:38:45 05/10/19 25 05/09/2024 URINA LYSIS WITH REFLE X MICRO SCOPI C AND CULTU RE nitrite, urine Positi ve negati ve abnormal Not Available [facility] [address] [place], [address], 05/09/2024 19:38:45 05/10/19 25 05/09/2024 URINA LYSIS WITH REFLE X MICRO SCOPI C AND CULTU RE protein, urine Negati ve mg/dL <=trac e Not Available [facility] [address] [place], [address], 05/09/2024 19:38:45 05/10/19 25 05/09/2024 URINA LYSIS WITH REFLE X MICRO SCOPI C AND CULTU RE glucose, urine Negati ve mg/dL negati ve Not Available [facility] [address] [place], [address], 05/09/2024 19:38:45 05/10/19 25 05/09/2024 URINA LYSIS WITH REFLE X MICRO SCOPI C AND CULTU RE ketones, urine Trace mg/dL negati ve abnormal Not Available [facility] [address] [place], [address], 05/09/2024 19:38:45 05/10/19 25 05/09/2024 URINA LYSIS WITH REFLE X MICRO SCOPI C AND CULTU RE urobilinogen , urine 1.0 mg/dL 0.2-1. 0 Not Available [facility] [address] [place], [address], 05/09/2024 19:38:45 05/10/19 25 05/09/2024 URINA LYSIS WITH REFLE X MICRO SCOPI C AND CULTU RE bilirubin, urine Negati ve negati ve Not Available [facility] [address] [place], [address], 05/09/2024 19:38:45 05/10/19 25 05/09/2024 URINA LYSIS WITH REFLE X MICRO SCOPI C AND CULTU RE blood, urine Negati ve negati ve Not Available [facility] [address] [place] [address], [address], 05/09/2024 19:38:45 05/10/19 25 05/09/2024 URINA LYSIS WITH REFLE X MICRO SCOPI C AND CULTU RE RBC, urine 4.1 /hpf 0-4 high Not Available [facility] [address] [place] [address], [address], 05/09/2024 19:38:45 05/10/19 25 05/09/2024 URINA LYSIS WITH REFLE X MICRO SCOPI C AND CULTU RE WBC, urine 58.4 /hpf 0-4 high Not Available [facility] [address] [place], [address], 05/09/2024 19:38:45 05/10/19 25 05/09/2024 URINA LYSIS WITH REFLE X MICRO SCOPI C AND CULTU RE squamous epithelial, urine 58 /lpf 0-60 Not Available [facility] [address] [place] [address], [address], 05/09/2024 19:38:45 05/10/19 25 05/09/2024 URINA LYSIS WITH REFLE X MICRO SCOPI C AND CULTU RE bacteria, urine Many /hpf negati ve abnormal Not Available [facility] [address] [place] [address], [address], 05/09/2024 19:38:45 05/10/19 25 05/09/2024 URINA LYSIS WITH REFLE X MICRO SCOPI C AND CULTU RE hyaline casts, urine 30.9 /lpf 0-3 high Not Available [facility] [address] [place] [address], [address], 05/09/2024 19:38:45 05/10/19 25 05/09/2024 URINA LYSIS WITH REFLE X MICRO SCOPI C AND CULTU RE note See Report high [facility], [address] [facility], [place], [place] [address] Not Available [facility] [address] [place] [address], [address], 05/09/2024 19:38:45 05/10/19 25 05/09/2024 CHLAM YDIA TRACH OMATI S AND NEISS ERIA GONOR RHOOMID E SHY MCINTYRE STUDY .note See Note Origi nal Order ing Provi javier: ASIM WELCH YANNA [facility] - Labor atory - [address] [facility], [facility] [place] [address] Not Available [facility] [address] [place] [address], [address], 05/10/2024 08:45:43 05/10/19 25 05/09/2024 CHLAM YDIA TRACH OMATI S AND NEISS ERIA GONOR RHOEA E MOLEC ULAR STUDY neisseria gonorrhoeae PCR Negati ve negati ve Not Available [facility] [address] [place] [address], [address], 05/10/2024 08:45:43 05/10/19 25 05/09/2024 CHLAM YDIA TRACH OMATI S AND NEISS ERIA GONOR RHOEA E MOLEC ULAR STUDY chlamydia trachomatis PCR Negati ve negati ve Not Available [facility] [address] [place] [address], [address], 05/10/2024 08:45:43 05/10/19 25 05/09/2024 CHLAM YDIA TRACH OMATI S AND NEISS ERIA GONOR RHOEA E MOLEC ULAR STUDY .note See Note Origi nal Order ing Provi javier: ASIM BARAJAS Georgina WELCH YANNA [facility] - Labor atory - [address] [facility], [facility], [facility] [place] [address] Not Available [facility] [address] [place] [address], [address], 05/10/2024 08:45:44 05/10/19 25 05/09/2024 CHLAM YDIA TRACH OMATI S AND NEISS ERIA GONOR RHOEA E MOLEC ULAR STUDY neisseria gonorrhoeae PCR Negati ve negati ve Not Available [facility] [address] [place] [address], [address], 05/10/2024 08:45:44 05/10/19 25 05/09/2024 CHLAM YDIA TRACH OMATI S AND NEISS ERIA GONOR RHOEA E MOLEC ULAR STUDY chlamydia trachomatis PCR Negati ve negati ve Not Available [facility] [address] [place] [address], [address], 05/10/2024 08:45:44 05/10/19 25 05/09/2024 CHLAM YDIA TRACH OMATI S AND NEISS ERIA GONOR RHOEA E MOLEC ULAR STUDY .note See Note Origi nal Order ing Provi javier: ASIM WELCH YANNA [facility] - Labor atory - [address] [facility], [place], [facility] [place] [address] Not Available [facility] [address] [place] [address], [address], 05/10/2024 09:34:44 05/10/19 25 05/09/2024 CHLAM YDIA TRACH OMATI S AND NEISS ERIA GONOR RHOEA E MOLEC ULAR STUDY neisseria gonorrhoeae PCR Negati ve negati ve Not Available [facility] [address] [place] [address], [address], 05/10/2024 09:34:44 05/10/19 25 05/09/2024 CHLAM YDIA TRACH OMATI S AND NEISS ERIA GONOR RHOEA E MOLEC ULAR STUDY chlamydia trachomatis PCR Negati ve negati ve Not Available [facility] [address] [place] [address], [address], 05/10/2024 09:34:44 05/10/19 25 05/09/2024 VAGIN ITIS PATHO GENS MOLEC ULAR STUDY .note See Note Origi nal Order ing Provi javier: ASIM RAINES [facility] - Labor atory - [address] [facility], [place], [facility] [place] [address] Not Available [facility] [address] [place] [address], [address], 05/10/2024 11:21:47 05/10/19 25 05/09/2024 VAGIN ITIS PATHO GENS MOLEC ULAR STUDY trichomonas vaginalis Negati ve negati ve Not Available [facility] [address] [place] [address], [address], 05/10/2024 11:21:47 05/10/19 25 05/09/2024 VAGIN ITIS PATHO GENS MOLEC ULAR STUDY gardnerella vaginalis Positi ve negati ve abnormal Not Available [facility] [address] [facility], [place], [address], 05/10/2024 11:21:47 05/10/19 25 05/09/2024 VAGIN ITIS PATHO GENS MOLEC ULAR STUDY josh species Negati ve negati ve Not Available [facility] [address] [place], [address], 05/10/2024 11:21:47 05/10/19 25 05/09/2024 CULTU RE URINE .note See Note Origi nal Order ing Provi javier: ASIM IA T MARTO YANNA [facility] - Labor atory - [address] [facility], [place], [place] [address] Not Available [facility] [address] [place] [address], [address], 05/11/2024 09:34:25 05/10/19 25 05/09/2024 CULTU RE URINE culture, urine ESCHER ICHIA COLI abnormal >100, 000 CFU/m L Esche mayra a coli Not Available [facility] [address] [place], [address], 05/11/2024 09:34:25 05/10/1905/09/2024 CULTU RE URINE report Jt pino Specfernadna Pitts e: Urine Colle cted: May 09, 2024 00:00 :00 ----- ----- ----- ----- ----- ----- ----- ----- ----- ----- ----- ----- ----- ----- ----- ----- Organ ism: ESCHE MAYRA A COLI Antib iotic s NERISSA Inter preta tion ----- ----- ----- ----- ----- ----- ----- ----- ----- ----- ----- ----- ----- ----- ----- ----- Amoxi cilli n+Cla v Islt NERISSA 2 S Ampic illin +Sulb ac Islt NERISSA 2 S Pip+T azo Islt NERISSA 4 S ceFAZ loli Susc Islt 1 S cefOX itin Islt NERISSA 4 S cefTA Zidim e Islt NERISSA 0.5 S cefTR IAXon e Islt NERISSA 0.25 S Cefep cheko Islt NERISSA 0.12 S Merop enem Islt NERISSA 0.25 S Amika ryan Islt NERISSA 4 S Genta micin Islt NERISSA 1 S Cipro floxa ryan Islt NERISSA 0.06 S levoF LOXac in Islt NERISSA 0.12 S Nitro furan toin Islt NERISSA 16 S TMP SMX Islt NERISSA 20 S Not Available [facility] [address] [place] [address], [address], 05/11/2024 09:34:25 Result Notes None recorded. Problems Name Problem SNOMED Code Status Onset Date Resolution Date Notes Provider Name and Address Organization Details Recorded Time Bacteria l vaginosi s 726033427 Active 2022 Belen Vera MD [address] [place] [address] [place], [address] , AQUILES VERA MD [facility] 3 16:49:24 Urinary tract infectio us disease 54973455 Active 2022 Belen Vera MD [address] [place] [address] [place], [address] , AQUILES VERA MD [facility] 3 16:49:28 Genital herpes simplex 49144132 Active 2022 Belen Vera MD [address] [place] [address] [place], [address] , AQUILES VERA MD [facility] 3 02:25:[address] Concept Active 2017 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; 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; Report Immunity to Registry : Yes; Notes: 7; Not Available [facility] 4 06:57:37 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; snomedde 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; Report Immunity to Registry : Yes; Notes: 7; Carrier of Group B streptoc occus; snomedde 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; Report Immunity to Registry : Yes; Notes: 7; Not Available [facility] 4 06:57:37 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; 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; Report Immunity to Registry : Yes; Notes: 7; Not Available [facility] 4 06:57:37 Acute vaginiti s 62357741 Active 2016 Acute vaginiti s; snomedde scriptio n: Gardnere lla vaginiti s; Report Immunity to Registry : Yes; Notes: keyla payne; Not Available [facility] 4 06:57:37 Abscess of skin and/or subcutan eous tissue 87793284 Active 2013 Abscess of skin AND/OR subcutan eous tissue; snomedde scriptio n: Abscess of skin AND/OR subcutan eous tissue; Report Immunity to Registry : Yes; Not Available [facility] 4 06:57:37 Cellulit is 955420108 Active 2013 Cellulit is and abscess of unspecif ied sites; snomedde scriptio n: Abscess of skin AND/OR subcutan eous tissue; Report Immunity to Registry : Yes; Not Available [facility] 4 06:57:37 Gardnere lla vaginiti s 382087976 Active 2016 Gardnere lla vaginiti s; snomedde scriptio n: Gardnere lla vaginiti s; Report Immunity to Registry : Yes; Notes: keyla payne; Not Available [facility] 4 06:57:38 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 902887941 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; snomedde scriptio n: 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; Report Immunity to Registry : Yes; Notes: MRSA screen negative 10/02 past hx.; Not Available [facility] 4 06:57:38 Candidia sis of vagina 65238351 Active 2016 Candidia sis of vagina; snomedde scriptio n: Candidia sis of vagina; Report Immunity to Registry : Yes; Notes: 10/2016; Not Available [facility] 4 06:57:38 Kidney stone 58603256 Active 2013 Calculus of kidney; snomedde scriptio n: Kidney stone; Report Immunity to Registry : Yes; Kidney stone; snomedde scriptio n: Kidney stone; Report Immunity to Registry : Yes; Not Available [facility] 4 06:57:38 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 36485657 Active 2017 Carrier or suspecte d carrier of other specifie d bacteria l diseases ; snomedde scriptio n: 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; Report Immunity to Registry : Yes; Notes: MRSA screen negative 10/02 past hx.; Not Available [facility] 4 06:57:38 Candidal vulvovag initis 37254704 Active 2016 Candidia sis of vulva and vagina; snomedde scriptio n: Candidia sis of vagina; Report Immunity to Registry : Yes; Notes: 10/2016; Not Available [facility] 4 06:57:38 Medullar y sponge kidney 337642140 Active 2013 Medullar y sponge kidney; snomedde scriptio n: Medullar y sponge kidney; Report Immunity to Registry : Yes; Not Available [facility] 4 06:57:38 Urinary tract infectio us disease 39393992 Completed 202204/12/2023 Urinary tract infectio n, site [...] Yes; ReasonDa te: 04/01/19 23; Not Available [facility] 4 06:57:38 Diabetes mellitus 52400943 Active 2013 Diabetes mellitus ; snomedde scriptio n: Diabetes mellitus ; Report Immunity to Registry : Yes; Not Available [facility] 4 06:57:39 Type 2 diabetes mellitus without complica tion [id number] Active 2013 Diabetes mellitus without mention of complica tion, type II or unspecif ied type, not stated as uncontro lled; snomedde scriptio n: Diabetes mellitus ; Report Immunity to Registry : Yes; Not Available [facility] 4 06:57:39 Problem Notes None recorded. [...] 15; VACCINE_ IND: no; SU_FULL_ NAME: Belen leon; Not Available Not Available Not Available prednison e 20 mg tablet TAKE 2 TABLETS (40 MG) BY MOUTH ONCE PER DAY FOR 5 DAYS. active Not Available Not Available No t Available quetiapin e 200 mg tablet TAKE 1 TABLET BY MOUTH [...] lone 100,000 unit/gram -0.1 % topical ointment 888624 units/g- 0.1% Quantity : 1; 1 refill(s [...] no; Not Available Not Available Not Available OneTouch Ultra Test strips USE TO TEST BLOOD SUGAR TWICE A DAY active Not Available Not Available No t Available hydrocort isone 1 % topical cream APPLY TO AFFECTED AREA TWICE A DAY active Not Available Not Available No t Available cephalexi n 500 mg capsule TAKE 1 CAPSULE TWICE A DAY active Not Available Not Available No t Available oseltamiv ir 75 mg capsule TAKE 1 CAPSULE ORALLY 2 TIMES A DAY FOR 5 DAYS active Not Available Not Available No t Available nitrofura ntoin macrocrys pablo 100 mg capsule 100 Quantity : 30; Duration : 30; 0 refill(s ) 08/16 completed Duration : 30; VACCINE_ IND: no; Not Available Not Available Not Available triamcino lone acetonide 0.1 % topical ointment APPLY TO AFFECTED AREA TWICE A DAY FOR 7 DAYS active Not Available Not Available No t Available clotrimaz ole-betam ethasone 1 %-0.05 % topical cream 0 Quantity : 45; Duration : 7; 0 refill(s ) 11/24 completed Duration : 7; VACCINE_ IND: no; Not Available Not Available Not Available prednison e 50 mg tablet TAKE 1 TABLET BY MOUTH DAILY FOR 5 DAYS active Not Available Not Available No t Available divalproe x ER 500 mg tablet,ex [...] Not Available No t Available hydrocort isone 2.5 % topical cream [...] no; Not Available Not Available Not Available clindamyc in 2 % vaginal cream APPLY IN AFFECTED AREA EVERY DAY FOR 7 DAYS active Not Available Not Available No t Available Valtrex 500 mg tablet Take 1 [...] ryan 500 mg tablet TAKE 1 TABLET BY MOUTH EVERY DAY FOR 7 DAYS FOR UTI active Not Available Not Available No t [...] bid; VACCINE_ IND: no; SU_FULL_ NAME: Belen Martevelyn leon; Not Available Not Available Not Available amoxicill [...] release TAKE 1 TABLET BY MOUTH EVERY MORNING TAKE WITH THE 150 MG TABLET. active Not Available Not Available No t Available bupropion HCl XL 150 mg 24 hr tablet, extended release TAKE 1 TABLET EVERY MORNING TAKE WITH THE 300 MG TABLET. active Not Available Not Available No t [...] metronida zole 1 % topical gel APPLY VAGINAL DAILY X 7 DAYS active Not Available Not Available No t Available zolpidem ER 12.5 mg tablet,ex tended [...] conjugat e PCV 13; SU_FULL_ NAME: Belen leon; VIS_DATE : 20:02:22 .0; Not Available [...] no; Not Available Not Available Not Available [facility] spacer USE WITH INHALER DIRECTED active Not Available Not Available No t Available lidocaine 5 % topical ointment apply small amount in affected area bid as needed 12/15 completed Duration : 30; VACCINE_ IND: no; SU_FULL_ NAME: Belen leon; Not Available Not Available Not Available Tri-Estar ylla (28) 0.18 mg(7)/0.2 15 mg(7)/0.2 5 mg(7)-0.0 35 mg tablet TAB; Quantity : 84; Duration : 84; 0 refill(s ) 08/16 completed Duration : 84; VACCINE_ IND: no; Not Available Not Available Not Available cefixime 400 mg capsule 400 Quantity : 7; Duration : 7; 0 refill(s ) 12/151 completed Duration : 7; VACCINE_ IND: no; [...] Available Not Available No t Available Fluvirin 45 mcg (15 mcg x 3)/0.5 mL [...] no; Not Available Not Available Not Available Afluria 45 mcg (15 mcg x 3)/0.5 mL [...] Not Available Not Available No t Available [facility] 60 mcg (15 mcg x 4)/0.5 mL intramusc ular susp. quadriva lent Quantity : ; 0 refill(s ) 06/29 completed VACCINE_ IND: yes; VACCINE_ NAME: influenz a, injectab le, quadriva lent; SU_FULL_ NAME: Belen leon; VIS_DATE : 17:41:59 .0; Not Available Not Available Not Available [facility] 60 mcg (15 mcg x 4)/0.5 mL [...] Not Available Not Available No t Available [facility] 60 mcg (15 mcg x 4)/0.5 mL intramusc ular susp. quadriva lent Quantity : ; 0 refill(s ) 06/29 completed VACCINE_ IND: yes; VACCINE_ NAME: influenz a, injectab le, quadriva lent; SU_FULL_ NAME: Belen Galeasevelyn carolyn; VIS_DATE : 19:48:25 .0; Not Available Not Available Not Available Apretude 600 mg/3 mL (200 mg/mL) IM suspensio n, extended release MONTHS 1 &2: 1 INJECTIO N INTRAMUS CULARLY EVERY MONTH THEN FOR MONTHS 4+: 1 INJECTIO N 08/16 completed Duration : 30; VACCINE_ IND: no; SU_FULL_ NAME: Belen Galeasevelyn leon; Not Available Not Available Not Available Afluria Quad (6mo up) 60 mcg (15 mcg x 4)/0.5 mL IM susp quadriva lent Quantity : ; 0 refill(s ) 06/29 completed VACCINE_ IND: yes; VACCINE_ DOCUMENT _DATE: 00:00:00 ; VACCINE_ DOCUMENT _NAME: Influenz a (Flu) (Inactiv ated or Recombin ant): 09/25/20; VACCINE_ NAME: influenz a, injectab le, quadriva lent; SU_FULL_ NAME: Belen Travis leon; VIS_DATE : 20:09:16 .0; Not Available Not Available Not Available Vitals Date Recorded Body height Heart rate Respiratory rate Body temperature Body mass index (BMI) Body weight Systolic blood pressure Diastolic blood pressure Provider Name and Address Organization Details Last Updated DateTime 4 152.4 cm 60 /min 10 /min 98.4 [degF] 25.4 kg/m2 22946.0 1 g 100 mm[Hg] 80 mm[Hg] Lesly VERA MD [facility] 4 16:06:11 Date Recorded Body height Heart rate Respiratory rate Body temperature Body mass index (BMI) Body weight Systolic blood pressure Diastolic blood pressure Provider Name and Address Organization Details Last Updated DateTime 5 152.4 cm 89 /min 10 /min 98.4 [degF] 24.4 kg/m2 65061.0 5 g 106 mm[Hg] 80 mm[Hg] Kaity VERA MD [facility] 14:55:20 Date Recorded Body height Body temperature Provider N varun and Address Organization Details Last Updated DateTime 01/31/2023 152.4 cm 98 [degF] Stacy VERA MD [facility] 01/31/2023 16:17:53 Social History Question Answer Notes LastModified by Organizat ion Details LastModified Time Tobacco Smoking Status Never Smoker AQUILES Hui MD [facility] 11/25/2022 14:10:40 Are You Blind Or Do You Have Difficulty Seeing? No Information not available 11/25/2022 Are You Deaf Or Do You Have Serious Difficulty Hearing? No [email or web address] Information not available 11/25/2022 Which Of Your Hands Is Dominant? Right [email or web address] Information not available 11/25/2022 What Is Your Relationship Status? Single [email or web address] Information not available 11/25/2022 Have You Recently Traveled Abroad? No [email or web address] Information not available 11/25/2022 Do You Have Difficulty Walking Or Climbing Stairs? No Information not available 11/25/2022 Sex: Female Functional Status Question Answer Note LastModified by Organizat ion Details LastModified Time Are you currently employed? No [email or web address] Information not available 11/25/2022 Are you able to walk? YESWOREST [email or web address] Information not available 11/25/2022 Do you have difficulty doing errands alone? No [email or web address] Information not available 11/25/2022 Are you able to care for yourself? Yes [email or web address] Information not available 11/25/2022 Do you have difficulty dressing or bathing? No [email or web address] Information not available 11/25/2022 Mental Status Question Answer Note LastModified by Organization D etails LastModified Time Do you have difficulty concentrating, remembering or making decisions? No [email or web address] Information no t available 11/25/2022 Family History Nothing Reported Notes:lymphoma cancer aunt, diabetes,heart disease, hypertension No known Family history, Response Property: Yes; , Family history unknown, Response Property: Yes; Medical History Condition Response Depression Y Anxiety Disorder Y Fibromyalgia Y Asthma Y Gynecological HistoryNo gynecological history recorded. Obstetrics History GPAL:G 0 P 0 0 0 0 Past Encounters Encounter ID Performer Location Encounter Start Date Encounter Closed Date Diagnosis/Indication Diagnosis SNOMED-CT Code Diagnosis ICD10 Code Diagnosis Note [id number] Belen Vera MD Main Office [address] [place] [address] 11/25/2022 13:56:27 11/30/2022 09:23:42 Exposure to Human immunodeficiency virus 004302857 Z20.6 PreP; STI labs. Awaitig allergy eval and management Plan is to start Apretude once she gets cleared by exercise planner. Apretude is already in the office, and [...] for STI prevention . Bacterial vaginosis 4197 27325 N76.0 BV: metronidaz ole cream daily for 7 days PRN BD affirm ordered Urinary tr act infectious disease 98062138 N39.0 Recurrent UTI. on Macrodanti n suppressio n tx qd. u/a and U/C ordered. will adjust tx if positive UTI. might have another organis, hydration. to hospital if acute or worsening sx while culture is being processed. Candidiasis of vagina 72 552388 B37.31 fluconazol e qw for suppressio n tx. to call if active infection as dose would change.BD affirm [id number] Belen Vera MD Main Office [address] [place] [address] 11/29/2022 15:03:23 11/30/2022 09:29:43 Exposure to Human immunodeficiency virus 605503316 Z20.6 PreP; STI labs. Plan is to start Apretude once she gets cleared by exercise planner. Apretude is already in the office, and [...] use for STI prevention . Bacterial vaginosis 7 52981 N76.0 BV: metronidaz ole cream daily for 7 days Urinary tr act infectious disease 46033354 N39.0 Recurrent UTI Ecoli. on Macrodanti n suppressio n tx qd. MRSA UTI. Start Doxycyclin e 100mg po bid x 14 days. B/c. CBC,ALT, AST, creatinine . may need to adjust antibiotic based on workup and response hydration. to hospital if acute or worsening sx while culture is being processed. Candidiasis of vagina 72 098443 B37.31 fluconazol e qw for suppressio n tx. to call if active infection as dose would change.BD affirm Localized eruption of skin 570962156 R21 facial. swelling.w orse with steroid cream. hold steroidsba cterial/fu ngal skin swab obtained. .mupirocin qd [id number] Belen Vera MD Main Office [address] [place] [address] 12/06/2022 12:30:04 12/06/2022 13:20:12 Exposure to Human immunodeficiency virus 085261906 Z20.6 PreP; STI labs. Plan is to start Apretude once she gets cleared by exercise planner. Apretude is already in the office, and [...] use for STI prevention . Bacterial vaginosis 4196 N76.0 BV: flagyl 500mg po bid x 7 days.SHE WAS NOT ABLE TO GET CREAM, AND HAS ACTIVE INFECTION AND POSITIVE bd AFFirm Urinary tr act infectious disease 46875850 N39.0 Recurrent UTI Ecoli. on Macrodanti n [...] is being processed. Candidiasis of vagina 72 427986 B37.31 fluconazol e qw for suppressio n tx. to call if active infection as dose would change.BD affirm Localized eruption of skin 953125649 R21 improved facial. swelling.h old steroidvir al swab obtainedmu pirocin qdf/u dermatolog y/allergis t Genital he rpes simplex 12986700 A60.9 [id number] Belen Vera MD Main Office [address] [place] [phone] 12/22/2022 15:10:16 12/22/2022 16:59:50 Exposure to Human immunodeficiency virus 873618630 Z20.6 PreP; STI labs.Plan is to start Apretude once she gets cleared by exercise planner. Apretude is already in the office, and [...] for STI prevention . Bacterial vaginosis 4197 14839 N76.0 BV:resolve d. Urinary tr act infectious disease 64405837 N39.0 Recurrent hx UTI Ecoli. hold Macrodanti [...] is being processed. Genital he rpes simplex 26981695 A60.9 [id number] Belen Vera MD Main Office [address] [place] [phone] 01/31/2023 16:14:07 01/31/2023 17:19:06 Exposure to Human immunodeficiency virus 953285194 Z20.6 PreP; STI labs.Plan is to start [...] prevention . Urinary tr act infectious disease 92496954 N39.0 Recurrent hx UTI Ecoli. Macrodanti n suppressio n tx qd.MRSA UTI. s/p Doxycyclin e 100mg po bid x 14 days. B/C negative.h ydration. to hospital if acute or worsening sx while culture is being processed. 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 Macrodanti n suppressio n tx qd.u/a and u/c; pt will come in to office, especially if worsening of sx.hydrati on.to hospital if acute or worsening sx while culture is being processed. [id number] Belen Vera MD Main Office [address] [place] [address] 03/13/2023 13:57:37 03/17/2023 13:46:02 Exposure to Human immunodeficiency virus 116180901 Z20.6 PreP;.Plan is to start Apretude within the next month once pt is ready.Init stefan, she will start PreP with PO cabotegrav ir, and if tolerates PO cabotegrav ir for several weeks, then will switch to IM Apretude qm x2, then QOM.condom use for STI prevention . Urinary tr act infectious disease 69660716 N39.0 Recurrent hx UTI Ecoli. Macrodanti n suppressio n tx qd.u/a and u/cincreas e nitrofuran toin 100mg po bid. once culture results available, will adjust tx if and as neededhydr ation. call if worseningt o hospital if acute or worsening sx while culture is being processed. Bacterial vaginosis 4197 78092 N76.0 BD affirm Candidal vulvovaginitis 88343984 B37.31 BD Affirm. [place]. [id number] Belen Vera MD Main Office [address] [place] [phone] 01/02/2024 15:50:41 01/02/2024 17:04:04 Urinary tract infectious disease 20956317 N39.0 Recurrent hx UTI Ecoli.past hx Macrodanti [...] worsening sx while culture is being processed. [id number] Belen Vera MD Main Office [address] [place] [address] 05/09/2024 14:29:12 05/09/2024 14:57:56 Urinary tract infectious disease 93724725 N39.0 Recurrent hx UTI Ecoli.past hx Macrodanti n suppressio n tx qd.suspect E coliawait results of u/a and u/c;START Levaquin 500mg po qd; will adjust tx if and as needed based on resultsto ER if n/v/d , chills, sweats or worsening sxhydratio n. call if worseningI recommend her to re-conside r qd MAcrodanti n to suppress; she tends to get UTI when she is not on suppressio n tx. Should also consider Urology eval/re-ev alto hospital if acute or worsening sx while culture is being processed. Bacterial vaginosis 4197 33373 N76.0 suspect BVBD affirmmetr ogel qd x 7 days intravagin al. recurrence is possiblein setting of multiple infection hx and antibiotic use. Health Concerns Section Related Observation LastModified by Organization Detai ls LastModified Time None Recorded Concern Status LastModified by Organization Details LastModified Time None Recorded Advance Directives Directive None Recorded Payers Encounter Date Sequence Insurance Name Policy Number Policy Castellano Covered Member ID Castellano Member ID Guarantor Name 01/31/2023 1 [facility] DOS ON OR AFTER 2022 - DETENTION OPTIONS AND ONE CARE (MEDICARE REPLACEMENT/ADV ANTAGE - PPO) Guillermina Townsend [id number] Guillermina Townsend 02/27/2023 1 [facility] [employer] - DOS ON OR AFTER 2022 - DETENTION OPTIONS AND ONE CARE (MEDICARE REPLACEMENT/ADV ANTAGE - PPO) Guillermina Townsend [id number] Guillermina Townsend 03/13/2023 1 [facility] [employer] - DOS ON OR AFTER 2022 - DETENTION OPTIONS AND ONE CARE (MEDICARE REPLACEMENT/ADV ANTAGE - PPO) Guillermina Townsend [id number] Guillermina Townsend 01/02/2024 1 [facility] - DOS ON OR AFTER 2022 - DETENTION OPTIONS AND ONE CARE (MEDICARE REPLACEMENT/ADV ANTAGE - PPO) Guillermina Townsend [id number] Guillermina Townsend 05/09/2024 1 [facility] - DOS ON OR AFTER 2022 - DETENTION OPTIONS AND ONE CARE (MEDICARE REPLACEMENT/ADV ANTAGE - PPO) Guillermina Townsend [id number] Guillermina Townsend Notes Date Note Type Note Provider Name and Address Organization Details Recorded Time 01/31/2023 text/html PreP.Plan is to start Cabotegravir/Apretude. [...] Syphilis ne; GC/Chlamydia neg Belen Vera MD [address] [place] [address], [phone], AQUILES VERA MD [facility] 02/01/2023 02:25:47 02/27/2023 text/html uti resolved. re cent e coli tx macrobid. not sure if ongoing infectionmacrobid qd suppression tx.no back pain. no fever.07/02/21 eGFR>60; AST/ALT wnl; CBC wnl;HIV neg; Syphilis ne; GC/Chlamydia neg11/2022 labs [place] HIV neg; HCV and HBV neg; eGFR>60; AST/ALt nl; RPR NR Belen Vera MD [address] [place] [address], [phone], AQUILES VERA MD [facility] 03/15/2023 00:20:43 03/13/2023 text/html PreP.will call [...] AST/ALt nl; RPR NR Belen Vera MD [address] [place] [address], [phone], AQUILES VERA MD [facility] 03/14/2023 23:50:30 01/02/2024 text/html uti sx. [...] AST/ALt nl; RPR NR Belen Vera MD [address] [place] [address], [phone], AQUILES VERA MD [facility] 01/11/2024 13:03:43 05/09/2024 text/html uti sx. hx e col i;has been off macrobid suppression tx for few months by choice. did not want to be taking multiple medsdeveloped UTI sx 2 days ago; dysuria and mild back pain which she gets when she gets UTI. no fever.no skin lesions.vaginal discharge, itchiness. no white curdy discharge; strong ododr. no recet labs; she says she has had labs with PCP, and kidney/liver stable results not available 12/2022 and 02/2023 U/C E coli pansusceptible.07/02/21 eGFR>60; AST/ALT wnl; CBC wnl;HIV neg; Syphilis ne; GC/Chlamydia neg11/2022 labs [place] HIV neg; HCV and HBV neg; eGFR>60; AST/ALt nl; RPR NR Belen Vera MD [address] [place] [address], [phone], AQUILES VERA MD [facility] 05/19/2024 18:12:10 OBGyn Episode No OBEpisode recorded.
--- OUTSIDE RECORDS SUMMARY | 2024-07-10 13:20 | XMS_ITS | Data Portability ---
Author Organization [employer] Address [address] [place] [phone] Care Team Providers Care Compliance Aide Name Role Phone [facility] Referring Provider [facility] Referring Provider Assessment Encounter Date Assessment Date Assessment LastModified by Organization Details LastModified Time 06/15/2021 06/15/2021 I have reviewed and agree with the assessment and plan as documented by the generation technician. I provided real-time medical direction for this [...] Appointments None recorded. Lab None recorded. Referral 21 dealer referral 2021 022 [email or web address] Not available 09:24:52 Procedures None recorded. Surgeries None recorded. Imaging None recorded. Medication Orders None recorded. Patient TargetsNo targets recorded. Patient InstructionsNo instructions recorded. Reason for Referral Sheet [employer] Hanger Referral for Pain of toe of left [...] Note [id number] Giacomo Madrid MD Main - [address] [address] 06/15/2021 15:47:01 10/22/2021 15:00:32 Pain of toe of left foot [id number] 58493 M79.675 Health Concerns Section Related Observation LastModified by Organization Detai ls LastModified Time None Recorded Concern Status LastModified by Organization Details LastModified Time None Recorded Advance Directives Directive None Recorded Payers Insurance Date Sequence Insurance Name Policy Number Policy Castellano Covered Member ID Castellano Member ID Guarantor Name 04/16/2023 1 [facility] - DOS PRIOR TO 2022 - DUAL ELIGIBLE (MEDICARE REPLACEMENT/ADV ANTAGE - HMO) Guillermina Townsend [id number] Guillermina Townsend 04/16/2023 1 [facility] [employer] - DOS ON OR AFTER 2022 - DUAL ELIGIBLE - FDC OPTIONS AND ONE CARE (MEDICARE REPLACEMENT/ADV ANTAGE - HMO) Guillermina Townsend [id number] Guillermina Townsend Notes Date Note Type Note [...] ................... ................... ................... ................... ................... ................... ............. 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 No further complaints. Photos uploaded to [employer] nadine for viewing. Vital signs obtained and all within normal limits, Red flags discussed. Consulted with Dr. Madrid. Patient is to follow up with PCP/care team regarding her signs, symptoms and todays visit. Patient to elevate left foot when resting and sleeping. Avoid uncomfortable shoes for a couple of weeks. Monitor health and toe for any changes. Contact [employer] for re-visit if symptoms persist. Contact 911 for any discussed red flags or other emergencies. ................... ................... ................... ................... ................... ................... ................... ........ Disposition: Fulfilled Giacomo Madrid MD [address] [place] [address],[address], [place], [phone], [employer] 06/15/2021 16:24:13 OBGyn Episode No OBEpisode recorded.
--- OUTSIDE RECORDS SUMMARY | 2024-07-10 13:20 | XMS_ITS | Referral Summary ---
Author Organization [facility] Address [address] [place] [address] Care Team Providers Care Cement Cutter Name Role Phone Jayda Hanson Primary Care Provider [phone] Medications ibuprofen (MOTRIN) 600 mg tablet Take [...] Plan of Treatment Not on file Insurance [facility] Care Teams Cement Cutter Relationship Specialty Start Date End Date Jayda Hanson [address] [place] [address] PCP - General 09/08/16
== END 2024-07-10 12:34 | disposition home or self-care (01) ==
LOC: HO.MAMMO 12:33
PROVIDERS: PCP Student in an Organized Health Care Education/Training Program; Visit Provider Student in an Organized Health Care Education/Training Program
DX: N64.4 Mastodynia (principal)
CPT/HCPCS: 76642; 77062; 77066